=== PATIENT | female | born 1945 | race Caucasian/White ===

== ENCOUNTER → 2017-12-17 10:56 | Outpatient (CLI) | payer MEDICARE, SELFPAY ==
[2017-12-17 12:59] LABS: Absolute Lymphocyte Count 2.71 X10^3/ul (0.83-4.51); Basophil# 0.03 X10^3/uL; Basophil% 0.3 % (0-1); Eosinophil# 0.38 X10^3/uL; Eosinophils% 3.6 % (0-5); Hematocrit 42.7 % (37-47); Hemoglobin 14.3 g/dl (12.0-15.0); Lymphocyte # 2.71 X10^3/ul (4.0); Mean Corp Hgb Conc 33.5 g/gl (32-36); Mean Corpuscular Hgb 28.9 pg (27.0-32.0); Mean Corpuscular Volume 86.3 fL (81-99); Mean Platelet Vol. 10.1 fl (6.2-12.0); Monocyte# 1.32 X10^3/uL; Monocyte% 12.7 % (0-10); Neutrophil # 5.96 X10^3/uL (2.7-7.7); Neutrophil % 57.1 % (47-70); POSITIVE COUNT NO; POSITIVE DIFFERENTIAL NO; POSITIVE MORPHOLOGY NO; Platelet Count 227 K/mm3 (150-450); RBC Distribution Width CV 14.7 % (11.6-14.6); RBC Distribution Width SD 45.9 fl (35.1-43.9); Red Blood Count 4.95 M/mm3 (4.2-5.4); White Blood Count 10.4 K/mm3 (4.4-11.0)
[2017-12-17 13:12] LABS: Vitamin D,25 Hydroxy 34.7 ng/mL (19.95-100.01)
[2017-12-17 13:35] LABS: ALB/GLOB Ratio 0.2 RATIO (0.9-2.4); AST(SGOT) 19 U/L (15-37); Alanine Aminotransfer ALT/SGPT 25 U/L (13-56); Albumin, Serum 1.3 g/dL (3.2-5.0); Alkaline Phosphatase 75 U/L (45-117); Anion Gap 22 (5-15); BUN 11 mg/dL (7-18); BUN/Creat Ratio 17.7 RATIO (10-20); Calcium,Total 9.9 mg/dL (8.5-10.1); Chloride 109 mmol/L (98-107); Creatinine, Serum 0.62 mg/dL (0.55-1.02); EST Glomerular Filtration Rate 100 mL/min (>60); Est Glom Filt Rate - Afr Amer 121 mL/min (>60); Globulin 5.2 g/dL (2.2-4.2); Glucose 79 mg/dL (74-106); Potassium 4.3 mmol/L (3.5-5.1); Protein, Total 6.5 g/dL (6.4-8.2); Sodium Level 143 mmol/L (136-145); Thyroid Stim Hormone (TSH) 2.26 uIU/mL (0.358-3.74)
== END ==
PROVIDERS: Family Provider Family Medicine Geriatric Medicine; PCP Family Medicine Geriatric Medicine; Visit Provider Family Medicine Geriatric Medicine
DX: I10 Essential (primary) hypertension (principal); E55.9 Vitamin D deficiency, unspecified
CPT/HCPCS: 36415; 80053; 82306; 84443; 85025

== ENCOUNTER 2018-02-04 17:00 | Outpatient (RCR) | payer MEDICARE, SELFPAY ==
--- NOTE | 2018-01-28 14:56 | HP.PTEVAL_ITS ---
Patient's Visit Information ANDREY DIEHL is a 72 year old F referred to Physical Therapy by Beverly [email or web address] with a diagnosis of Low Back Pain. Date of Evaluation: 01/28/18 Physical Therapist: Nedra Sarabia - Visit Plan Frequency: 1x/Week Duration: 4 Weeks Plan: Focus on core s/s- HEP due to high copay - Subjective Subjective: Patient reports hip pain that radiates to the knee on the left side started about a week ago- insidious onset. Has poor muscle tone and thinks that the problems. Had nerve pain before sciatic but this is a new onset. Worst: /10 agg: movement Eases: 0/10 with pain medication. Had x-rays taken - reports indicate that has muscle issues. Describes pain as pinching. Feels the pain is getting better but she still has the pain. Saw the MD who put her on steroids (taper) and advil- finished the taper yesterday. No N/T in the toes. but does tingle in the top of the latearal aspect of the thigh. Has a cholostomy- so no change in bowl or bladder. Sleep: does wake her up sometimes - tries to take pain medication before she goes to bed. Can be stiff in the AM - side sleeper. Does not sleep with a pillow between her knees. About a year ago she fell off a ladder but doesn't know if its related- did not get checked out. PMHx: cholostomy, 3 surgeries on her gut so she feels like she has poor strength, BP. Meds: Tylenol, Advil, BP med, detrol - Objective Posture: FH, RS, Increased kyphosis- corrects briefly with verbal cues but returns to poor posture quickly. Gait: no deviation noted in LE but has poor trunk rotation. SLS: 15 sec without LOB bilaterally. HR/TR: able in standing without UE A. ROM: lumbar: WNL in all planes, Hip/Knee/Ankle:WNL. Strength: Core: poor, Hip: 4/5 throughout, Knee: 4+/5, Ankle: 5/5. Slump: positive left. Flex: HS: moderate, Gastroc: moderate. Sensation: WNL - Goals Goal 1:: Patient will be I with HEP and progression Goal Time Frame: 4-6 Weeks Goal 2:: Patient will maintain proper posture t/o tx session to demo increased Goal Time Frame: 4-6 Weeks Goal 3:: Patient reports 2/10 pain for 1 week Goal Time Frame: 4-6 Weeks - Rehabilitation Potential Physical Therapy Diagnosis: Patient presents with hypomobility- she has poor core strength/stabilization leading to poor posture and increased pain Rehabilitation Potential: Fair - Anticipated Interventions Patient/Client Instruction: Educate patient on: Benefits of Fitness Program For the Purpose of:: To improve ability to perform ADL's Therapeutic Exercise to Include: Strength training, Endurance training, Body mechanics, Postural training, Flexibilty training, Dynamic Lumbar Stabilization , Scapular Strength/Stabilization For the Purpose of:: To improve muscle performance and motor function TENS: Yes Thermo therapy (hot pack): Yes Ultrasound (thermal/non thermal): Yes For the Purpose of:: To decrease pain Thank you for the opportunity to evaluate your patient. For Medicare and Medicare HMO plans, please review the plan of care and approve it. It will need to be FAXED BACK to us at [phone] for Medicare purposes. Please let me know if there are questions or concerns regarding this plan of care. Physician Signature: Date:
--- NOTE | 2018-03-16 14:00 | HP.PTDCNRP_ITS ---
HP - Discharge Summary (1) - Patient Information ANDREY DIEHL was seen in my office for initial evaluation on 01/28/18. The following Plan of Care was established for this patient: Initial Frequency: 1x/Week Initial Duration: 4 Weeks - Anticipated Interventions Patient/Client Instruction: Educate patient on: Benefits of Fitness Program For the Purpose of:: To improve ability to perform ADL's Therapeutic Exercise to Include: Strength training, Endurance training, Body mechanics, Postural training, Flexibilty training, Dynamic Lumbar Stabilization , Scapular Strength/Stabilization For the Purpose of:: To improve muscle performance and motor function TENS: Yes Thermo therapy (hot pack): Yes Ultrasound (thermal/non thermal): Yes For the Purpose of:: To decrease pain This patient was last seen in our office . Pertinent comments regarding their Physical therapy will appear below: Patient has not returned for 30 days and is appropriate for discharge. Return to MD for further evaluation as needed. At this point I will be discontinuing this patient from physical therapy. I would be happy to see this patient again in the future if found appropriate by the physician. Thank you! Nedra Sarabia
== END 2018-02-04 19:00 | disposition home or self-care (01) ==
LOC: PT 17:00
PROVIDERS: Family Provider Family Medicine Geriatric Medicine; PCP Family Medicine Geriatric Medicine; Visit Provider Physician Assistant
DX: M43.16 Spondylolisthesis, lumbar region (principal); M54.16 Radiculopathy, lumbar region; M51.36 Other intervertebral disc degeneration, lumbar region
CPT/HCPCS: 97014; 97110; 97161; G0283

== ENCOUNTER → 2018-03-25 11:57 | Outpatient (CLI) | payer MEDICARE, SELFPAY ==
[2018-03-25 12:42] LABS: Absolute Lymphocyte Count 2.48 X10^3/ul (0.83-4.51); Absolute Neutrophil Count 4.2 X10^3/uL (2.0-7.7); Basophil# 0.05 X10^3/uL; Basophil% 0.6 % (0-1); Eosinophil# 0.83 X10^3/uL; Eosinophils% 9.8 % (0-5); Hematocrit 40.7 % (37-47); Hemoglobin 13.3 g/dl (12.0-15.0); Lymphocyte # 2.48 X10^3/ul (4.0); Lymphocyte % 29.3 % (19-41); Mean Corp Hgb Conc 32.7 g/gl (32-36); Mean Corpuscular Hgb 27.9 pg (27.0-32.0); Mean Corpuscular Volume 85.3 fL (81-99); Mean Platelet Vol. 9.6 fl (6.2-12.0); Monocyte# 0.95 X10^3/uL; Monocyte% 11.2 % (0-10); Neutrophil # 4.15 X10^3/uL (2.7-7.7); Platelet Count 251 K/mm3 (150-450); RBC Distribution Width CV 13.3 % (11.6-14.6); RBC Distribution Width SD 41.3 fl (35.1-43.9); Red Blood Count 4.77 M/mm3 (4.2-5.4); White Blood Count 8.5 K/mm3 (4.4-11.0)
[2018-03-25 12:54] LABS: POSITIVE COUNT NO; POSITIVE DIFFERENTIAL NO; POSITIVE MORPHOLOGY NO
[2018-03-25 13:16] LABS: Vitamin D,25 Hydroxy 29.9 ng/mL (29.95-100.01)
[2018-03-25 13:17] LABS: AST(SGOT) 29 U/L (15-37); Alanine Aminotransfer ALT/SGPT 27 U/L (13-56); Albumin, Serum 3.3 g/dL (3.2-5.0); Alkaline Phosphatase 86 U/L (45-117); Anion Gap 9 (5-15); BUN 10 mg/dL (7-18); Calcium,Total 9.9 mg/dL (8.5-10.1); Chloride 109 mmol/L (98-107); Creatinine, Serum 0.72 mg/dL (0.55-1.02); EST Glomerular Filtration Rate 85 mL/min (>60); Est Glom Filt Rate - Afr Amer 102 mL/min (>60); Globulin 3.4 g/dL (2.2-4.2); Glucose 107 mg/dL (74-106); Potassium 4.2 mmol/L (3.5-5.1); Protein, Total 6.7 g/dL (6.4-8.2); Sodium Level 143 mmol/L (136-145)
== END ==
PROVIDERS: Family Provider Family Medicine Geriatric Medicine; PCP Family Medicine Geriatric Medicine; Visit Provider Family Medicine Geriatric Medicine
DX: I10 Essential (primary) hypertension (principal); E55.9 Vitamin D deficiency, unspecified
CPT/HCPCS: 36415; 80053; 82306; 84443; 85025

== ENCOUNTER → 2018-04-09 12:08 | Outpatient (CLI) | payer MEDICARE, SELFPAY | PROVIDERS: Family Provider Family Medicine Geriatric Medicine; PCP Family Medicine Geriatric Medicine; Visit Provider Family Medicine Geriatric Medicine | DX: R68.83 Chills (without fever) (principal) | CPT/HCPCS: 87633 ==

== ENCOUNTER → 2018-05-07 14:08 | Outpatient (CLI) | payer MEDICARE, SELFPAY ==
--- NOTE | 2018-05-07 14:10 | RAD_ITS ---
STUDY: X-RAY - ABDOMEN/PELVIS REASON FOR EXAM: Female, 73 years old. Colostomy. Constipation. Discomfort. TECHNIQUE: AP supine and upright views of the abdomen and pelvis. COMPARISON: None. FINDINGS: Normal visualized lung bases. There is a large amount of feces throughout the colon. There is no evidence of obstruction. There is no small bowel dilatation. There is no demonstrated free abdominal air. The visualized liver, spleen and kidneys are grossly normal in size and morphology. There is a left lower quadrant ostomy. Normal soft tissue structures. There are diffuse degenerative changes of the visualized lumbar spine. RAD/Abd Inc Decub and/or Erect IMPRESSION: Large amount of feces suggesting constipation. There is no evidence of acute intra-abdominal process Electronically Signed: Jorge Thrasher DO at 22:21 EDT Tel [phone], Service support ,
== END ==
PROVIDERS: Family Provider Family Medicine Geriatric Medicine; PCP Family Medicine Geriatric Medicine; Visit Provider Family Medicine Geriatric Medicine
DX: K59.00 Constipation, unspecified (principal)
CPT/HCPCS: 74019

== ENCOUNTER → 2018-06-16 11:02 | Outpatient (CLI) | payer MEDICARE, SELFPAY ==
[2018-06-16 13:00] LABS: Absolute Lymphocyte Count 2.45 X10^3/ul (0.83-4.51); Absolute Neutrophil Count 4.3 X10^3/uL (2.0-7.7); Basophil# 0.04 X10^3/uL; Basophil% 0.5 % (0-1); Eosinophil# 0.27 X10^3/uL; Eosinophils% 3.3 % (0-5); Hemoglobin 13.5 g/dl (12.0-15.0); Lymphocyte # 2.45 X10^3/ul (4.0); Lymphocyte % 29.7 % (19-41); Mean Corp Hgb Conc 32.9 g/gl (32-36); Mean Corpuscular Hgb 28.6 pg (27.0-32.0); Mean Corpuscular Volume 86.9 fL (81-99); Mean Platelet Vol. 9.8 fl (6.2-12.0); Monocyte# 1.14 X10^3/uL; Monocyte% 13.8 % (0-10); Neutrophil # 4.33 X10^3/uL (2.7-7.7); Neutrophil % 52.5 % (47-70); Platelet Count 264 K/mm3 (150-450); RBC Distribution Width CV 14.5 % (11.6-14.6); RBC Distribution Width SD 45.7 fl (35.1-43.9); Red Blood Count 4.72 M/mm3 (4.2-5.4); White Blood Count 8.3 K/mm3 (4.4-11.0)
[2018-06-16 13:02] LABS: POSITIVE COUNT NO; POSITIVE DIFFERENTIAL NO; POSITIVE MORPHOLOGY NO
[2018-06-16 13:46] LABS: ALB/GLOB Ratio 1.1 RATIO (0.9-2.4); AST(SGOT) 22 U/L (15-37); Alanine Aminotransfer ALT/SGPT 18 U/L (13-56); Albumin, Serum 3.2 g/dL (3.2-5.0); Alkaline Phosphatase 63 U/L (45-117); Anion Gap 8 (5-15); BUN 10 mg/dL (7-18); BUN/Creat Ratio 13.3 RATIO (10-20); Calcium,Total 9.4 mg/dL (8.5-10.1); Chloride 110 mmol/L (98-107); Cholesterol 153 mg/dL (200); Creatinine, Serum 0.75 mg/dL (0.55-1.02); EST Glomerular Filtration Rate 80 mL/min (>60); Est Glom Filt Rate - Afr Amer 97 mL/min (>60); Glucose 69 mg/dL (74-106); High Density Lipoprotein 52 mg/dL; Potassium 3.8 mmol/L (3.5-5.1); Protein, Total 6.2 g/dL (6.4-8.2); Sodium Level 142 mmol/L (136-145); Thyroid Stim Hormone (TSH) 1.74 uIU/mL (0.358-3.74); Triglycerides 96 mg/dL; Very Low Density Lipoprotein 19 mg/dL (5-40)
[2018-06-17 09:04] LABS: Vitamin D,25 Hydroxy 31.8 ng/mL (29.95-100.01)
== END ==
PROVIDERS: Family Provider Family Medicine Geriatric Medicine; PCP Family Medicine Geriatric Medicine; Visit Provider Family Medicine Geriatric Medicine
DX: E78.4 Other hyperlipidemia (principal); E55.9 Vitamin D deficiency, unspecified; I10 Essential (primary) hypertension
CPT/HCPCS: 36415; 80053; 80061; 82306; 84443; 85025

== ENCOUNTER → 2018-09-09 13:56 | Outpatient (CLI) | payer MEDICARE, SELFPAY | PROVIDERS: Family Provider Family Medicine Geriatric Medicine; PCP Family Medicine Geriatric Medicine; Referring Provider Family Medicine Geriatric Medicine; Visit Provider Family Medicine Geriatric Medicine | DX: R68.83 Chills (without fever) (principal) | CPT/HCPCS: 87633 ==

== ENCOUNTER → 2018-09-23 15:35 | Outpatient (CLI) | payer MEDICARE, SELFPAY ==
[2018-09-23 17:38] LABS: Absolute Lymphocyte Count 2.02 X10^3/ul (0.83-4.51); Absolute Neutrophil Count 7.5 X10^3/uL (2.0-7.7); Basophil# 0.03 X10^3/uL; Basophil% 0.3 % (0-1); Differential Indicated SCAN CRITERIA MET; Eosinophil# 0.27 X10^3/uL; Eosinophils% 2.4 % (0-5); Hematocrit 43.2 % (37-47); Hemoglobin 14.2 g/dl (12.0-15.0); Lymphocyte # 2.02 X10^3/ul (4.0); Lymphocyte % 17.7 % (19-41); Mean Corp Hgb Conc 32.9 g/gl (32-36); Mean Corpuscular Volume 88.2 fL (81-99); Mean Platelet Vol. 10.1 fl (6.2-12.0); Monocyte# 1.54 X10^3/uL; Monocyte% 13.5 % (0-10); Neutrophil # 7.52 X10^3/uL (2.7-7.7); Neutrophil % 65.7 % (47-70); POSITIVE COUNT NO; POSITIVE DIFFERENTIAL YES; POSITIVE MORPHOLOGY NO; Platelet Count 297 K/mm3 (150-450); RBC Distribution Width CV 13.9 % (11.6-14.6); RBC Distribution Width SD 44.1 fl (35.1-43.9); White Blood Count 11.4 K/mm3 (4.4-11.0)
[2018-09-23 17:53] LABS: Differential Comment SCANNED; Vitamin D,25 Hydroxy 21.6 ng/mL (29.95-100.01)
[2018-09-23 18:02] LABS: AST(SGOT) 18 U/L (15-37); Alanine Aminotransfer ALT/SGPT 28 U/L (13-56); Albumin, Serum 3.3 g/dL (3.2-5.0); Alkaline Phosphatase 79 U/L (45-117); Anion Gap 8 (5-15); BUN 10 mg/dL (7-18); Chloride 110 mmol/L (98-107); Cholesterol 187 mg/dL (200); EST Glomerular Filtration Rate 58 mL/min (>60); Est Glom Filt Rate - Afr Amer 70 mL/min (>60); Globulin 3.4 g/dL (2.2-4.2); Glucose 154 mg/dL (74-106); High Density Lipoprotein 69 mg/dL; Protein, Total 6.7 g/dL (6.4-8.2); Sodium Level 144 mmol/L (136-145); Thyroid Stim Hormone (TSH) 2.32 uIU/mL (0.358-3.74); Triglycerides 92 mg/dL; Very Low Density Lipoprotein 18 mg/dL (5-40)
--- OUTSIDE RECORDS SUMMARY | 2018-11-19 01:52 | XMS RPT_ITS ---
:1945 Author Organization OHIP Support Name Relationship Address Phone Melvi Pollard Unavailable Unavailable + [place] [address] NAY DIEHL Unavailable [address] + [place] [address] R Unavailable Unavailable Unavailable Melvi Pollard Unavailable Unavailable + [place] [address] NAY DIEHL Unavailable [address] + [place] [address] R Unavailable Unavailable Unavailable Melvi Pollard Unavailable Unavailable + [place] [address] NAY DIEHL Unavailable [address] + [place] [address] R Unavailable Unavailable Unavailable Melvi Pollard Unavailable Unavailable + [place] [address] NAY DIEHL Unavailable [address] + [place] [address] R Unavailable Unavailable Unavailable Melvi Pollard Unavailable Unavailable + [place] [address] NAY DIEHL Unavailable [address] + [place] [address] R Unavailable Unavailable Unavailable NAY DIEHL Unavailable [address] + [place] [address] R Unavailable Unavailable Unavailable FAZALNAY Unavailable [address] + [place] [address] R Unavailable Unavailable Unavailable NAY DIEHL Unavailable [address] + [place] [address] R Unavailable Unavailable Unavailable Care Team Providers Name Role Phone Ana WRIGHT Attending Unavailable NAY IBARRA Referring Unavailable ADILSON GOMEZ Attending Unavailable GO, FLOR CHI Referring Unavailable Go, Flor Chi Attending Unavailable Go, Flor Chi Primary Care Unavailable Franklyn, Beverly Attending Unavailable Franklyn, Beverly Referring Unavailable Go, Flor Chi Primary Care Unavailable Go, Flor Chi Attending Unavailable Go, Flor Chi Primary Care Unavailable Go, Flor Chi Attending Unavailable Go, Flor Chi Referring Unavailable Go, Flor Chi Primary Care Unavailable Go, Flor Chi Attending Unavailable Go, Flor Chi Referring Unavailable Go, Flor Chi Primary Care Unavailable Go, Flor Chi Attending Unavailable Go, Flor Chi Primary Care Unavailable Go, Flor Chi Attending Unavailable Go, Flor Chi Referring Unavailable Go, Flor Chi Primary Care Unavailable Go, Flor Chi Attending Unavailable Go, Flor Chi Primary Care Unavailable PROBLEMS PROBLEMS DATE TYPE CONDITION / CODE ATTENDING STATUS SOURCE 04/09/2018 Unknown R68.83 - Chills Go, Flor Chi Active [place] (without fever) / [facility] R68.83(ICD-10) Hospital Repository 03/25/2018 Unknown I10 - Essential Go, Flor Chi Active [place] (primary) [facility] hypertension / Hospital I10(ICD-10) Repository 03/25/2018 Unknown E55.9 - Vitamin D Go, Flor Chi Active [place] deficiency, [facility] unspecified / Hospital E55.9(ICD-10) Repository 03/19/2018 Unknown M43.16 - FranklynXiomara mckinleye Active [place] Spondylolisthesis, [facility] lumbar region / Hospital M43.16(ICD-10) Repository 11/18/2017 Active Unknown / WRIGHT, R Active [facility] UNK(Unknown) [facility] Repository PROCEDURES PROCEDURES No Procedure Records FoundRESULTS RESULTS CBC W/DIFF, AUTOMATED Collected: 09/23/2018 Status: F Source: [place] 3:36 PM [facility] HOSPITAL REPOSITORY TYPE CODE TESTS RESULT OUT OF RANGE REFERENCE UNITS LAB L100.1000 4.4-11.0 K/mm3 High WBC 11.4 LAB L100.1200 4.2-5.4 M/mm3 Normal RBC 4.90 LAB L100.1300 12.0-15.0 g/dl Normal HGB 14.2 LAB L100.1400 37-47 % Normal HCT 43.2 LAB L100.1500 81-99 fL Normal MCV 88.2 LAB L100.1600 27.0-32.0 pg Normal MCH 29.0 LAB L100.1700 32-36 g/gl Normal MCHC 32.9 LAB L100.1810 11.6-14.6 % Normal RDW CV 13.9 LAB L100.1820 35.1-43.9 fl High RDW SD 44.1 LAB L100.1900 150-450 K/mm3 Normal PLT 297 LAB L100.2000 6.2-12.0 fl Normal MPV 10.1 LAB L100.2100 47-70 % Normal NEUT% 65.7 LAB L100.2200 19-41 % Low LY% 17.7 LAB L100.2300 0-10 % High MONO% 13.5 LAB L100.2400 0-5 % Normal EO% 2.4 LAB L100.2500 0-1 % Normal BASO% 0.3 LAB L100.2550 0.0-0.9 % Normal IM GRAN % 0.400 Result Comment: IG% - Immature Granulocytes (promyelocytes, myelocytes and metamyelocytes) > 1% indicates that a LEFT SHIFT is Present. LAB L100.2620 2.0-7.7 X10 3/uL Normal Absolute Neut 7.5 LAB L100.2720 0.83-4.51 X10 3/ul Normal Absolute Lymph 2.02 LAB L100.4500 Normal SMEAR COMMENT SCANNED Result Comment: MONOCYTOSIS NOTED Performed By: #### L100.0100 #### [facility] [address], [place], [address] VITAMIN D,25 HYDROXY Collected: 09/23/2018 Status: F Source: [place] 3:36 PM [facility] [place] TYPE CODE TESTS RESULT OUT OF REFERENCE UNITS RANGE LAB L506.1000 29.95-100.01 ng/mL Low Vitamin D 21.6 25-OH Result Comment: Vitamin D 25(OH) Status Range Deficiency <20 ng/mL (50nmol/L) Insuffciency 20 - 30 ng/mL (50 - 75 nmol/L) Sufficiency 30 - 100 ng/mL (75 - 250 nmol/L) Toxicity >100 ng/mL (>250 nmol/L) Performed By: #### L506.1000 #### [facility] [address], [place], [address] COMPREHENSIVE METABOLIC Collected: 09/23/2018 Status: F Source: [place] 3:36 PM [facility] [place] TYPE CODE TESTS RESULT OUT OF RANGE REFERENCE UNITS LAB L501.0100 74-106 mg/dL High GLU 154 Result Comment: Fasting Glucose result greater than or equal to 126 mg/dL suggests DIABETES MELLITUS per A.D.A. criteria. Please note revised GLUCOSE reference range effective 2017. LAB L501.1000 7-18 mg/dL Normal BUN 10 LAB L501.1100 0.55-1.02 mg/dL Normal CREAT,SERUM 1.00 Result Comment: The validity of the calculated GFR AND GFRAA in patients over 70 years has not been determined. Clinical correlation is essential. LAB L501.1110 >60 mL/min Low EST GFR 58 Result Comment: Non- GFR Calc LAB L501.1115 >60 mL/min Normal EST GFR - AA 70 Result Comment: GFR Calc LAB L501.1300 10-20 RATIO Normal BUN/CRE 10.0 LAB L501.1500 6.4-8.2 g/dL T Normal PROT 6.7 LAB L501.1800 3.2-5.0 g/dL Normal ALB 3.3 LAB L501.1950 2.2-4.2 g/dL Normal GLOB 3.4 LAB L501.2000 0.9-2.4 RATIO Normal A/G 1.0 LAB L501.2200 8.5-10.1 mg/dL CA Normal 10.0 LAB L501.4100 15-37 U/L Normal AST 18 LAB L501.4305 45-117 U/L Normal ALK P 79 LAB L501.4405 13-56 U/L Normal ALT 28 LAB L501.4600 0.20-1.00 mg/dL T Normal BILI 0.30 LAB L501.5300 136-145 mmol/L NA Normal 144 LAB L501.5600 3.5-5.1 mmol/L K Normal 4.0 LAB L501.5900 98-107 mmol/L High CL 110 LAB L501.6100 21.0-32.0 mmol/L Normal CO2 26.0 LAB L501.6200 5-15 Normal GAP 8 Performed By: #### L500.4050, L500.4100, L501.9520 #### [facility] [address] [place], [address] LIPID PROFILE Collected: 09/23/2018 Status: F Source: [place] 3:36 PM [facility] [place] TYPE CODE TESTS RESULT OUT OF RANGE REFERENCE UNITS LAB L501.4900 200 mg/dL Normal CHOL 187 Result Comment: <200 mg/dL Desirable 200-240 mg/dL Borderline >240 mg/dL High Risk LAB L501.5000 mg/dL Normal TRIG 92 Result Comment: The drugs N-Acetylcysteine and Metamizole may falsely depress this assay. Serum Triglycerides Reference Interval Normal <150 mg/dL Borderline high 150 - 199 mg/dL High 200 - 499 mg/dL Very High > or = 500 mg/dL LAB L501.6400 mg/dL Normal HDL 69 Result Comment: The drugs N-Acetylcysteine and Metamizole may falsely depress this assay. Reference Range HDL <40 mg/dL Low HDL Cholesterol HDL >or= 60 mg/dL High HDL Cholesterol LAB L501.6500 0-130 mg/dL Normal LDL 100 LAB L501.6600 5-40 mg/dL Normal VLDL 18 Performed By: #### L500.4050, L500.4100, L501.9520 #### [facility] [address] [place], [address] THYROID STIM HORMONE Collected: 09/23/2018 Status: F Source: [place] (TSH) 3:36 PM [facility] [place] TYPE CODE TESTS RESULT OUT OF RANGE REFERENCE UNITS LAB L501.9520 0.358-3.74 uIU/mL Normal TSH 2.32 Performed By: #### L500.4050, L500.4100, L501.9520 #### [facility] [address] [place], [address] Observed: 09/09/2018 Status: F Source: [place] RESPIRATORY PANEL 2:06 PM [facility] RP PANEL Normal Reference Range = Not Detected RESULTS CALLED TO DR STILES NURSE LINE 09/10/18 3660 Shala Carrillo. REPORT READ BACK BY NO ONE. Copy of report sent to Infection Control Printer MS#[id number] 09/10/18 0940 DGRADY. ADENOVIRUS Not Detected HUMAN METAPHNEUMO Not Detected INFLUENZA A Not Detected INFLUENZA A (SUBTYPE H1) Not Detected INFLUENZA A (SUBTYPE H3) Not Detected INFLUENZA B Not Detected PARAINFLUENZA 1 Not Detected PARAINFLUENZA 2 Not Detected PARAINFLUENZA 3 Not Detected PARAINFLUENZA 4 Not Detected RHINOVIRUS Positive for RHINOVIRUS by NAAT technology RSV A Not Detected RSV B Not Detected NAAT METHOD Testing was performed using nucleic acid amplification ORGANISM 1: RHINOVIRUS Performed By: #### M100.638 #### [facility] [address] [place], [address] CBC W/DIFF, AUTOMATED Collected: 06/16/2018 Status: F Source: [place] 11:04 AM [facility] [place] TYPE CODE TESTS RESULT OUT OF RANGE REFERENCE UNITS LAB L100.1000 4.4-11.0 K/mm3 Normal WBC 8.3 LAB L100.1200 4.2-5.4 M/mm3 Normal RBC 4.72 LAB L100.1300 12.0-15.0 g/dl Normal HGB 13.5 LAB L100.1400 37-47 % Normal HCT 41.0 LAB L100.1500 81-99 fL Normal MCV 86.9 LAB L100.1600 27.0-32.0 pg Normal MCH 28.6 LAB L100.1700 32-36 g/gl Normal MCHC 32.9 LAB L100.1810 11.6-14.6 % Normal RDW CV 14.5 LAB L100.1820 35.1-43.9 fl High RDW SD 45.7 LAB L100.1900 150-450 K/mm3 Normal PLT 264 LAB L100.2000 6.2-12.0 fl Normal MPV 9.8 LAB L100.2100 47-70 % Normal NEUT% 52.5 LAB L100.2200 19-41 % Normal LY% 29.7 LAB L100.2300 0-10 % High MONO% 13.8 LAB L100.2400 0-5 % Normal EO% 3.3 LAB L100.2500 0-1 % Normal BASO% 0.5 LAB L100.2550 0.0-0.9 % Normal IM GRAN % 0.200 Result Comment: IG% - Immature Granulocytes (promyelocytes, myelocytes and metamyelocytes) > 1% indicates that a LEFT SHIFT is Present. LAB L100.2620 2.0-7.7 X10 3/uL Normal Absolute Neut 4.3 LAB L100.2720 0.83-4.51 X10 3/ul Normal Absolute Lymph 2.45 Performed By: #### L100.0100 #### [facility] [place], [address] COMPREHENSIVE METABOLIC Collected: 06/16/2018 Status: F Source: [place] [facility] 11:04 AM [facility] [place] TYPE CODE TESTS RESULT OUT OF RANGE REFERENCE UNITS LAB L501.0100 74-106 mg/dL Low GLU 69 Result Comment: Please note revised GLUCOSE reference range effective 2017. LAB L501.1000 7-18 mg/dL Normal BUN 10 LAB L501.1100 0.55-1.02 mg/dL Normal CREAT,SERUM 0.75 Result Comment: The validity of the calculated GFR AND GFRAA in patients over 70 years has not been determined. Clinical correlation is essential. LAB L501.1110 >60 mL/min Normal EST GFR 80 Result Comment: Non- GFR Calc LAB L501.1115 >60 mL/min Normal EST GFR - AA 97 Result Comment: GFR Calc LAB L501.1300 10-20 RATIO Normal BUN/CRE 13.3 LAB L501.1500 6.4-8.2 g/dL Low T PROT 6.2 LAB L501.1800 3.2-5.0 g/dL Normal ALB 3.2 LAB L501.1950 2.2-4.2 g/dL Normal GLOB 3.0 LAB L501.2000 0.9-2.4 RATIO Normal A/G 1.1 LAB L501.2200 8.5-10.1 mg/dL CA Normal 9.4 LAB L501.4100 15-37 U/L Normal AST 22 LAB L501.4305 45-117 U/L Normal ALK P 63 LAB L501.4405 13-56 U/L Normal ALT 18 LAB L501.4600 0.20-1.00 mg/dL T Normal BILI 0.50 LAB L501.5300 136-145 mmol/L NA Normal 142 LAB L501.5600 3.5-5.1 mmol/L K Normal 3.8 LAB L501.5900 98-107 mmol/L High CL 110 LAB L501.6100 21.0-32.0 mmol/L Normal CO2 24.0 LAB L501.6200 5-15 Normal GAP 8 Performed By: #### L500.4050, L500.4100, L501.9520 #### [facility] [address] [place], [place], [address] LIPID PROFILE Collected: 06/16/2018 Status: F Source: [place] 11:04 AM [facility] [place] TYPE CODE TESTS RESULT OUT OF RANGE REFERENCE UNITS LAB L501.4900 200 mg/dL Normal CHOL 153 Result Comment: <200 mg/dL Desirable 200-240 mg/dL Borderline >240 mg/dL High Risk LAB L501.5000 mg/dL Normal TRIG 96 Result Comment: The drugs N-Acetylcysteine and Metamizole may falsely depress this assay. Serum Triglycerides Reference Interval Normal <150 mg/dL Borderline high 150 - 199 mg/dL High 200 - 499 mg/dL Very High > or = 500 mg/dL LAB L501.6400 mg/dL Normal HDL 52 Result Comment: The drugs N-Acetylcysteine and Metamizole may falsely depress this assay. Reference Range HDL <40 mg/dL Low HDL Cholesterol HDL >or= 60 mg/dL High HDL Cholesterol LAB L501.6500 0-130 mg/dL Normal LDL 82 LAB L501.6600 5-40 mg/dL Normal VLDL 19 Performed By: #### L500.4050, L500.4100, L501.9520 #### [facility] [address] [facility] [place], [address] THYROID STIM HORMONE Collected: 06/16/2018 Status: F Source: [place] (TSH) 11:04 AM [facility] [place] TYPE CODE TESTS RESULT OUT OF RANGE REFERENCE UNITS LAB L501.9520 0.358-3.74 uIU/mL Normal TSH 1.74 Performed By: #### L500.4050, L500.4100, L501.9520 #### [facility] [address] [facility] [place], [place], [address] VITAMIN D,25 HYDROXY Collected: 06/16/2018 Status: F Source: [place] 11:04 AM [facility] [place] TYPE CODE TESTS RESULT OUT OF RANGE REFERENCE UNITS LAB L506.1000 29.95-100.01 ng/mL Normal Vitamin D 31.8 25-OH Result Comment: Vitamin D 25(OH) Status Range Deficiency <20 ng/mL (50nmol/L) Insuffciency 20 - 30 ng/mL (50 - 75 nmol/L) Sufficiency 30 - 100 ng/mL (75 - 250 nmol/L) Toxicity >100 ng/mL (>250 nmol/L) Performed By: #### L506.1000 #### [facility] [address] [place], [address] ABD INC DECUB Observed: 05/07/2018 Status: F Source: [place] AND/OR ERECT 2:10 PM [facility] [facility] Services [address] [address] Abd Inc Decub and/or Erect MR#: [id number] Acct: [id number] Name: BREANNE DIEHL Rep #: [id number] : 1945 F 73 From: Jorge Thrasher DO PCP: Go HASKINS,Flor Alcantara Status: REG CLI Study: Abd Inc Decub and/or Erect Date of Exam: 05/07/18 Exam# [id number] Ordering Dr: Flor Stiles MD STUDY: X-RAY - ABDOMEN/PELVIS REASON FOR EXAM: Female, 73 years old. Colostomy. Constipation. Discomfort. TECHNIQUE: AP supine and upright views of the abdomen and pelvis. COMPARISON: None. FINDINGS: Normal visualized lung bases. There is a large amount of feces throughout the colon. There is no evidence of obstruction. There is no small bowel dilatation. There is no demonstrated free abdominal air. The visualized liver, spleen and kidneys are grossly normal in size and morphology. There is a left lower quadrant ostomy. Normal soft tissue structures. There are diffuse degenerative changes of the visualized lumbar spine. RAD/Abd Inc Decub and/or Erect IMPRESSION: Large amount of feces suggesting constipation. There is no evidence of acute intra-abdominal process Electronically Signed: Jorge Thrasher at 22:21 EDT Tel [phone], Service support , CC: Flor Stiles MD Case Repairer: Signed Observed: 04/09/2018 Status: F Source: [place] RESPIRATORY PANEL 12:13 PM [facility] RP PANEL ADENOVIRUS Not Detected HUMAN METAPHNEUMO Not Detected INFLUENZA A Not Detected INFLUENZA A (SUBTYPE H1) Not Detected INFLUENZA A (SUBTYPE H3) Not Detected INFLUENZA B Not Detected PARAINFLUENZA 1 Not Detected PARAINFLUENZA 2 Not Detected PARAINFLUENZA 3 Not Detected PARAINFLUENZA 4 Not Detected RHINOVIRUS Not Detected RSV A Not Detected RSV B Not Detected NAAT METHOD Testing was performed using nucleic acid amplification Performed By: #### M100.638 #### [facility] [place], [address] CBC W/DIFF, AUTOMATED Collected: 03/25/2018 Status: F Source: [place] 11:59 AM [facility] TYPE CODE TESTS RESULT OUT OF RANGE REFERENCE UNITS LAB L100.1000 4.4-11.0 K/mm3 Normal WBC 8.5 LAB L100.1200 4.2-5.4 M/mm3 Normal RBC 4.77 LAB L100.1300 12.0-15.0 g/dl Normal HGB 13.3 LAB L100.1400 37-47 % Normal HCT 40.7 LAB L100.1500 81-99 fL Normal MCV 85.3 LAB L100.1600 27.0-32.0 pg Normal MCH 27.9 LAB L100.1700 32-36 g/gl Normal MCHC 32.7 LAB L100.1810 11.6-14.6 % Normal RDW CV 13.3 LAB L100.1820 35.1-43.9 fl Normal RDW SD 41.3 LAB L100.1900 150-450 K/mm3 Normal PLT 251 LAB L100.2000 6.2-12.0 fl Normal MPV 9.6 LAB L100.2100 47-70 % Normal NEUT% 49.0 LAB L100.2200 19-41 % Normal LY% 29.3 LAB L100.2300 0-10 % High MONO% 11.2 LAB L100.2400 0-5 % High EO% 9.8 LAB L100.2500 0-1 % Normal BASO% 0.6 LAB L100.2550 0.0-0.9 % Normal IM GRAN % 0.100 Result Comment: IG% - Immature Granulocytes (promyelocytes, myelocytes and metamyelocytes) > 1% indicates that a LEFT SHIFT is Present. LAB L100.2620 2.0-7.7 X10 3/uL Normal Absolute Neut 4.2 LAB L100.2720 0.83-4.51 X10 3/ul Normal Absolute Lymph 2.48 Performed By: #### L100.0100 #### [facility] [address] [facility] [place], [place], [address] VITAMIN D,25 HYDROXY Collected: 03/25/2018 Status: F Source: [place] 11:59 AM [facility] [place] TYPE CODE TESTS RESULT OUT OF REFERENCE UNITS RANGE LAB L506.1000 29.95-100.01 ng/mL Low Vitamin D 29.9 25-OH Result Comment: Vitamin D 25(OH) Status Range Deficiency <20 ng/mL (50nmol/L) Insuffciency 20 - 30 ng/mL (50 - 75 nmol/L) Sufficiency 30 - 100 ng/mL (75 - 250 nmol/L) Toxicity >100 ng/mL (>250 nmol/L) Performed By: #### L506.1000 #### [facility] [address] [facility] [place], [place], [address] COMPREHENSIVE METABOLIC Collected: 03/25/2018 Status: F Source: [facility] 11:59 AM [facility] [place] TYPE CODE TESTS RESULT OUT OF RANGE REFERENCE UNITS LAB L501.0100 74-106 mg/dL High GLU 107 Result Comment: Fasting Glucose result from 100 to 125 mg/dL suggests IMPAIRED HOMEOSTASIS per A.D.A. criteria. Please note revised GLUCOSE reference range effective 2017. LAB L501.1000 7-18 mg/dL Normal BUN 10 LAB L501.1100 0.55-1.02 mg/dL Normal CREAT,SERUM 0.72 Result Comment: The validity of the calculated GFR AND GFRAA in patients over 70 years has not been determined. Clinical correlation is essential. LAB L501.1110 >60 mL/min Normal EST GFR 85 Result Comment: Non- GFR Calc LAB L501.1115 >60 mL/min Normal EST GFR - AA 102 Result Comment: GFR Calc LAB L501.1300 10-20 RATIO Normal BUN/CRE 14.0 LAB L501.1500 6.4-8.2 g/dL T Normal PROT 6.7 LAB L501.1800 3.2-5.0 g/dL Normal ALB 3.3 LAB L501.1950 2.2-4.2 g/dL Normal GLOB 3.4 LAB L501.2000 0.9-2.4 RATIO Normal A/G 1.0 LAB L501.2200 8.5-10.1 mg/dL CA Normal 9.9 LAB L501.4100 15-37 U/L Normal AST 29 LAB L501.4305 45-117 U/L Normal ALK P 86 LAB L501.4405 13-56 U/L Normal ALT 27 LAB L501.4600 0.20-1.00 mg/dL T Normal BILI 0.50 LAB L501.5300 136-145 mmol/L NA Normal 143 LAB L501.5600 3.5-5.1 mmol/L K Normal 4.2 LAB L501.5900 98-107 mmol/L High CL 109 LAB L501.6100 21.0-32.0 mmol/L Normal CO2 25.0 LAB L501.6200 5-15 Normal GAP 9 Performed By: #### L500.4050, L501.9520 #### [facility] [address] [facility] [place], [place], [address] THYROID STIM HORMONE Collected: 03/25/2018 Status: F Source: [place] (TSH) 11:59 AM [facility] [place] TYPE CODE TESTS RESULT OUT OF RANGE REFERENCE UNITS LAB L501.9520 0.358-3.74 uIU/mL Normal TSH 2.00 Performed By: #### L500.4050, L501.9520 #### [facility] [address] [facility] [place], [address] INITAL EVALUATION (1) Observed: 01/28/2018 Status: F Source: [place] - PT 2:56 PM [facility] [place] [facility] [address] [place] [address] Fax REHABILITATION SERVICES INITIAL EVALUATION MR#: [id number] Acct: [id number] Name: BREANNE DIEHL Rep #: [id number] : 1945 72 From: Nedra Sarabia DPT Referring Dr.: Beverly Estes Status: REG RCR Insurance: [employer] MEDICARE PPO SELF PAY INSURANCE Patient's Visit Information BREANNE DIEHL is a 72 year old F referred to Physical Therapy by Beverly [email or web address].BPOMPE with a diagnosis of Low Back Pain. Date of Evaluation: 01/28/18 Physical Therapist: Nedra Sarabia - Visit Plan Frequency: 1x/Week Duration: 4 Weeks Plan: Focus on core s/s- HEP due to high copay - Subjective Subjective: Patient reports hip pain that radiates to the knee on the left side started about a week ago- insidious onset. Has poor muscle tone and thinks that the problems. Had nerve pain before sciatic but this is a new onset. Worst: 9/10 agg: movement Eases: 0/10 with pain medication. Had x-rays taken- reports indicate that has muscle issues. Describes pain as pinching. Feels the pain is getting better but she still has the pain. Saw the MD who put her on steroids (taper) and advil- finished the taper yesterday. No N/T in the toes. but does tingle in the top of the latearal aspect of the thigh. Has a cholostomy- so no change in bowl or bladder. Sleep: does wake her up sometimes- tries to take pain medication before she goes to bed. Can be stiff in the AM- side sleeper. Does not sleep with a pillow between her knees. About a year ago she fell off a ladder but doesn't know if its related- did not get checked out. PMHx: cholostomy, 3 surgeries on her gut so she feels like she has poor strength, BP. Meds: Tylenol, Advil, BP med, detrol - Objective Posture: FH, RS, Increased kyphosis- corrects briefly with verbal cues but returns to poor posture quickly. Gait: no deviation noted in LE but has poor trunk rotation. SLS: 15 sec without LOB bilaterally. HR/TR: able in standing without UE A. ROM: lumbar: WNL in all planes, Hip/Knee/Ankle:WNL. Strength: Core: poor, Hip: 4/5 throughout, Knee: 4+/5, Ankle: 5/5. Slump: positive left. Flex: HS: moderate, Gastroc: moderate. Sensation: WNL - Goals Goal 1:: Patient will be I with HEP and progression Goal Time Frame: 4-6 Weeks Goal 2:: Patient will maintain proper posture t/o tx session to demo increased Goal Time Frame: 4-6 Weeks Goal 3:: Patient reports 2/10 pain for 1 week Goal Time Frame: 4-6 Weeks - Rehabilitation Potential Physical Therapy Diagnosis: Patient presents with hypomobility- she has poor core strength/stabilization leading to poor posture and increased pain Rehabilitation Potential: Fair - Anticipated Interventions Patient/Client Instruction: Educate patient on: Benefits of Fitness Program For the Purpose of:: To improve ability to perform ADL's Therapeutic Exercise to Include: Strength training, Endurance training, Body mechanics, Postural training, Flexibilty training, Dynamic Lumbar Stabilization, Scapular Strength/Stabilization For the Purpose of:: To improve muscle performance and motor function TENS: Yes Thermo therapy (hot pack): Yes Ultrasound (thermal/non thermal): Yes For the Purpose of:: To decrease pain Thank you for the opportunity to evaluate your patient. For Medicare and Medicare HMO plans, please review the plan of care and approve it. It will need to be FAXED BACK to us at [phone] for Medicare purposes. Please let me know if there are questions or concerns regarding this plan of care. Physician Signature: Date: <Electronically signed by Nedra Sarabia DPT> 01/28/18 7950 CC: Beverly Estes; Flor Stiles MD ELR Signed For Medicare only, by signing this I certify the plan of care. Physicians Signature Date SURGICAL PATHOLOGY Observed: 12/22/2017 Status: F Source: [place] 1:58 PM [facility] REPOSITORY Specimen originated from [facility] Specimen #: [id number] Submitting Physician: SHELBY ROWE FINAL DIAGNOSIS Pouch, biopsy - Gastric oxyntic mucosa with no diagnostic alteration. - No histomorphologic evidence of Helicobacter pylori. EDK/dss 12/23/2017 Justine Flores D.O. (Electronic Signature) SPECIMEN SUBMITTED A: POUCH, BIOPSY CLINICAL DATA GERD R/O H PYLORI GROSS DESCRIPTION A. Received in formalin are two pieces of buckner, soft tissue aggregating to 1.1 x 0.4 x 0.2 cm. Totally submitted in one cassette. Gross examination performed at [facility], [address] [place] [address] 12/22/2017 8:39:12 PM Date of Report: 12/25/2017 Date of Procedure: 12/22/2017 Date of Receipt: 12/22/2017 Submitted by: SHELBY ROWE Location: Q31 Diagnostic interpretation performed at [place] [address]. CBC W/DIFF, AUTOMATED Collected: 12/17/2017 Status: F Source: [place] 10:59 AM [facility] [place] [place] TYPE CODE TESTS RESULT OUT OF RANGE REFERENCE UNITS LAB L100.1000 4.4-11.0 K/mm3 Normal WBC 10.4 LAB L100.1200 4.2-5.4 M/mm3 Normal RBC 4.95 LAB L100.1300 12.0-15.0 g/dl Normal HGB 14.3 LAB L100.1400 37-47 % Normal HCT 42.7 LAB L100.1500 81-99 fL Normal MCV 86.3 LAB L100.1600 27.0-32.0 pg Normal MCH 28.9 LAB L100.1700 32-36 g/gl Normal MCHC 33.5 LAB L100.1810 11.6-14.6 % High RDW CV 14.7 LAB L100.1820 35.1-43.9 fl High RDW SD 45.9 LAB L100.1900 150-450 K/mm3 Normal PLT 227 LAB L100.2000 6.2-12.0 fl Normal MPV 10.1 LAB L100.2100 47-70 % Normal NEUT% 57.1 LAB L100.2200 19-41 % Normal LY% 26.0 LAB L100.2300 0-10 % High MONO% 12.7 LAB L100.2400 0-5 % Normal EO% 3.6 LAB L100.2500 0-1 % Normal BASO% 0.3 LAB L100.2550 0.0-0.9 % Normal IM GRAN % 0.300 Result Comment: IG% - Immature Granulocytes (promyelocytes, myelocytes and metamyelocytes) > 1% indicates that a LEFT SHIFT is Present. LAB L100.2620 2.0-7.7 X10 3/uL Normal Absolute Neut 6.0 LAB L100.2720 0.83-4.51 X10 3/ul Normal Absolute Lymph 2.71 Performed By: #### L100.0100 #### [facility] [place], [address] VITAMIN D,25 HYDROXY Collected: 12/17/2017 Status: F Source: [place] 10[place] [facility] [place] CODE TESTS RESULT OUT OF RANGE REFERENCE UNITS LAB L506.1000 19.95-100.01 ng/mL Normal Vitamin D 34.7 25-OH Result Comment: Vitamin D 25(OH) Status Range Deficiency <20 ng/mL (50nmol/L) Insuffciency 20 - 30 ng/mL (50 - 75 nmol/L) Sufficiency 30 - 100 ng/mL (75 - 250 nmol/L) Toxicity >100 ng/mL (>250 nmol/L) Performed By: #### L506.1000 #### [facility] [address] [place], [address] COMPREHENSIVE METABOLIC Collected: 12/17/2017 Status: F Source: [place] [facility] 10:59 AM [facility] [place] CODE TESTS RESULT OUT OF RANGE REFERENCE UNITS LAB L501.0100 74-106 mg/dL Normal GLU 79 Result Comment: Please note revised GLUCOSE reference range effective 2017. LAB L501.1000 7-18 mg/dL Normal BUN 11 LAB L501.1100 0.55-1.02 mg/dL Normal CREAT,SERUM 0.62 Result Comment: The validity of the calculated GFR AND GFRAA in patients over 70 years has not been determined. Clinical correlation is essential. LAB L501.1110 >60 mL/min Normal EST GFR 100 Result Comment: Non- GFR Calc LAB L501.1115 >60 mL/min Normal EST GFR - AA 121 Result Comment: GFR Calc LAB L501.1300 10-20 RATIO Normal BUN/CRE 17.7 LAB L501.1500 6.4-8.2 g/dL T Normal PROT 6.5 LAB L501.1800 3.2-5.0 g/dL Low ALB 1.3 LAB L501.1950 2.2-4.2 g/dL High GLOB 5.2 LAB L501.2000 0.9-2.4 RATIO Low A/G 0.2 LAB L501.2200 8.5-10.1 mg/dL CA Normal 9.9 LAB L501.4100 15-37 U/L Normal AST 19 LAB L501.4305 45-117 U/L Normal ALK P 75 LAB L501.4405 13-56 U/L Normal ALT 25 Result Comment: Please note revised ALT reference range effective 2017. LAB L501.4600 0.20-1.00 mg/dL Normal T BILI 0.60 LAB L501.5300 136-145 mmol/L Normal NA 143 LAB L501.5600 3.5-5.1 mmol/L Normal K 4.3 LAB L501.5900 98-107 mmol/L High CL 109 LAB L501.6100 21.0-32.0 mmol/L Low CO2 12.0 LAB L501.6200 5-15 High GAP 22 Performed By: #### L500.4050, L501.9520 #### [facility] [address] [place], [address] THYROID STIM HORMONE Collected: 12/17/2017 Status: F Source: [place] ([facility]) 10:59 AM [facility] [place] CODE TESTS RESULT OUT OF RANGE REFERENCE UNITS LAB L501.9520 0.358-3.74 uIU/mL Normal TSH 2.26 Performed By: #### L500.4050, L501.9520 #### [facility] [address] [place], [address] PROGRESS Observed: 11/18/2017 Status: COMPLETED Source: [place] 10:[address] [facility] REPOSITORY HNO ID: [id number] Author: Ana Wright Service: (none) Author Type: Physician Type: Progress Notes Filed: 11/18/2017 2:23 PM Note Text: [facility] STAFF PHYSICIAN NOTE OF PERSONAL INVOLVEMENT IN CARE I have reviewed the consult note obtained and documented by the resident and I personally participated in the avalos components. I have discussed the case and management of the patient's care. The following comments revise or confirm relevant avalos components of the note. IMPRESSION: This is a 72 year old with constant right sided abdominal pain. gallstones, but not convincing for biliary colic. complex past surgical history per resident note. diverticulitis, obesity, end-stoma PLAN: refer to bariatric endoscopy Tremayne Wright MD, FACS Date of Service: November 18, 2017 Time of Service: 10:23 AM HISTORY PHYSICAL Observed: 11/18/2017 Status: COMPLETED Source: [place] 9:[address] [facility] REPOSITORY HNO ID: [id number] Author: Carrie Camp Service: (none) Author Type: Resident Type: HANDP Filed: 11/18/2017 2:23 PM Note Text: HISTORY AND PHYSICAL EXAMINATION SERVICE DATE: 11/18/2017 SERVICE TIME: 9:31 AM PRIMARY CARE PHYSICIAN: Flor Stiles MD REASON FOR VISIT: Breanne Diehl is a 72 year old female who is being seen for abdominal pain The patient has the following: ACTIVE PROBLEM LIST Essential Hypertension, Benign Other and Unspecified Hyperlipidemia Adjustment Disorder With Depressed Mood Bronchiectasis With Acute Exacerbation (Hcc) Thoracic Or Lumbosacral Neuritis Or Radiculitis, Unspecified Lung Nodule Severe Persistent Asthma Bronchiectasis (Hcc) Allergic Rhinitis, Cause Unspecified Gerd (Gastroesophageal Reflux Disease) Dysphonia Overactive Bladder Chronic Cough Fracture of Radial Head, Closed Allergic Conjunctivitis Allergic Rhinitis Due to Pollen Excessive Daytime Sleepiness Asthma With Chronic Obstructive Pulmonary Disease (Copd) (Hcc) Obesity Nstemi (Non-St Elevated Myocardial Infarction) (Hcc) Atrial Fibrillation (Hcc) Asthma Exacerbation Acute Postoperative Pain of Abdomen Acute Blood Loss Anemia Heart Failure With Reduced Ejection Fraction (Hcc) Postoperative Ileus (Hcc) 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 Moderate Protein-Calorie Malnutrition (Hcc) Warfarin-Induced Coagulopathy (Hcc) Paroxysmal Atrial Fibrillation (Hcc) Stress-Induced Cardiomyopathy Anticoagulation Management Encounter Perioperative Dehiscence of Abdominal Wound With Evisceration Pseudomonas Infection Status Post Skin Graft SUBJECTIVE CHIEF COMPLAINT: Abdominal tightness and discomfort HPI: Breanne Diehl is a 72-year-old woman with a history of adjustment disorder, HTN, IBS, GERD and hiatal hernia s/p laparoscopic repair and Mayra-en-Y gastric bypass, diverticulitis with perforation s/p sigmoid colectomy with end colostomy complicated by early postoperative SBO secondary to parastomal hernia s/p keyhole repair complicated by evisceration s/p mesh placement and skin graft. She says that since that time she had suffered from abdominal pain. It is described as a tightness and discomfort and is located primarily deep to her right ribs. Sometimes she is also very bloated along her entire lower abdomen. The pain is constant, present daily and waxes and wanes throughout the day. It is usually about a 4/10 at its most severe is 5/10. The pain is exacerbated by eating anything and not fatty foods in particular, and she cannot eat much before feeling full. If she eats too much she feels sick but has not had any nausea or vomiting. The pain sometimes radiates to her right back when she is active. The only alleviating factor is rest and relaxation. She denies fevers with the acute exacerbations of lower abdominal bloating. She does not have weight loss, malaise, change in stoma output or character, urinary complaints, recent illness. She does continue to suffer from asthma but it is now controlled with inhalers alone and is not on steroids. She was advised to stop taking aspirin 81 due to easy bruising and is not on any other blood thinners. PAST MEDICAL HISTORY Diagnosis Date - Adjustment disorder with depressed mood - Asthma - Essential hypertension, benign - External hemorrhoids without mention of complication - GERD (gastroesophageal reflux disease) - Internal hemorrhoids without mention of complication - Irritable bowel syndrome - Overactive bladder PAST SURGICAL HISTORY Procedure Laterality Date - CATARACT EXTRACTION HX Bilateral 2011 - COLONOSCOP W/ OR W/O [facility] SPEC 11/26/06 - EGD 11/10 [facility] - NASAL SURGERY PROCEDURE 02/24/2012 Bilateral total ethmoidectomy, bilateral maxillary antrostomy , right middle turbinectomy, septoplasty (Behzad Sharma MD, [facility]) - PAST SURGICAL HISTORY OF 2001 bilateral knee replacement redo - PAST SURGICAL HISTORY OF 03/06/2010 complex revision to right total knee replacement -[facility] - Dr. Mcdonald - PICC LINE INSERT/CONSULT 07/01/2016 - REMOVAL OF TONSILS,<11 Y/O 1950 Tonsillectomy - SPLIT GRFT PROC TRUNK <100SQCM 12/25/2016 - W PROBE PH CAPSULE DOWNEY W/DEL 10/2014 [place] FAMILY HISTORY Problem Relation Age of Onset - Cancer Father prostate with mets at 91 y/o - Heart Mother - Breast Cancer Sister breast- mastectomy at 92 y/o - Cancer Sister lymphoma at 76 y/o - Ischemic Heart Disease Mother 88 at 88 y/o - Cancer Brother Urinary tract at 91 y/o - Diabetes Brother - None Sister s/p hip replacements - Prostate Cancer Father SOCIAL HISTORY: Social History Substance Use Topics - Smoking status: Former Smoker Packs/day: 0.30 Years: 4.00 Types: Cigarettes Quit date: 10/27/1965 - Smokeless tobacco: Never Used Comment: Few cigarettes daily, < 4 years. TO - Alcohol use No MEDICATIONS: Prior to Admission medications as of 11/18/17 0908 Medication Sig Last Dose Taking pantoprazole DR (PROTONIX) 40 mg tablet Yes tolterodine ER (DETROL LA) 2 mg 24 hr capsule Yes traZODone (DESYREL) 50 mg tablet Yes simethicone, chewable (MYLICON) 80 mg chewable tablet Take 1 tablet by mouth four times daily as needed. Yes albuterol (PROVENTIL) 2.5 mg /3 mL (0.083 %) nebulizer solution 3 mL every 4 hours as needed. Use one ampule via nebulizer every 4 hours as needed for cough, wheezing, chest tightness or SOB Yes albuterol HFA (PROVENTIL HFA) 90 mcg/actuation inhaler Inhale 2 Puffs as instructed every 4 hours as needed for Wheezing/Shortness of Breath. 2 PUFFS EVERY 4 HOURS NEEDED; MAY GIVE AVAILABLE EQUIVALENT ALBUTEROL HFA INHALER Yes ipratropium-albuterol (DUONEB) 0.5 mg-3 mg(2.5 mg base)/3 mL nebu Inhale 3 mL as instructed every 4 hours while awake. Yes budesonide-formoterol (SYMBICORT) 160-4.5 mcg/actuation inhaler Inhale 2 Puffs as instructed twice daily. Use with spacer. Rinse mouth out after use. Yes metoprolol tartrate, short acting, (LOPRESSOR) 25 mg tablet Take 1 tablet by mouth every 12 hours. Yes calcium citrate (CALCITRATE) 200 mg (950 mg) tab Take 1 tablet by mouth twice daily. Yes topical moisturizing lotion (LUBRIDERM DAILY) Apply 1 application to affected area as needed for Dry Skin. Yes budesonide (PULMICORT) 0.5 mg/2 mL nebulizer solution Use 2 mL via nebulizer twice daily. Yes heparin 5,000 unit/0.5 mL syrg Inject 0.5 mL subcutaneously every 12 hours. Yes docusate sodium (COLACE) 100 mg capsule Take 1 capsule by mouth twice daily. Yes benzocaine-menthol (CEPACOL) 15-3.6 mg lozg Use 1 Lozenge as instructed every 2 hours as needed. Yes Ggmujkvq-Cgrz-Ovl-Folic Acid (CENTRUM) 3,500-18-0.4 unit-mg-mg chewable tablet Take 1 tablet by mouth once daily. Yes cyanocobalamin (VITAMIN B-12) 1,000 mcg tab Take 1 tablet by mouth once daily. Yes cholecalciferol (VITAMIN D3) 1,000 unit tab tablet Take 2 tablets by mouth once daily. Yes oxybutynin ER (DITROPAN XL) 10 mg 24 hr tablet Take 1 tablet by mouth once daily. Yes No medication comments found. CURRENT ALLERGIES: ALLERGIES Allergen Reactions - Levaquin [Levofloxa* Hives, Swelling, Itching Swelling of face and lips. - Penicillins Hives, Intolerance - Dilaudid [Hydromorp* Hives - Oxycodone Mental Status Change Has been tolerating oxycodone during surgical recovery REVIEW OF SYSTEMS: PAIN ASSESSMENT: General: No weight loss, malaise or fevers. Neuro: Denies dizziness, loss of consciousness, stroke, TIA Respiratory: No history of current cough or dyspnea, or pneumonia in the past 6 weeks. No history of respiratory/pulmonary symptoms or problems Cardiovascular: Positive for: postoperative atrial fibrillation that resolved. Denies CAD, HTN, VT, palpitations GI: See HPI : Denies painful urination, bloody urine Endocrine: Denies diabetes and thyroid disease. No longer taking steroids for asthma. Hematology: Easy bruising / bleeding, denies bleeding disorder. Not on aspirin or blood thinners Oncology: No history of CA metastasis, chemo within 30 days, or radiotherapy within 90 days. Has not lost 10% of body wt in 6 months. No history of oncological symptoms or problems. Psych: Adjustment disorder Musculoskeletal: Occasional right back pain while sweeping. Negative for joint pain or swelling, or muscle pain. Skin: Negative for lesions, rash and itching. PHYSICAL EXAM: VITALS: BP 156/86 Pulse 66 Resp 20 Ht 5' 0 (1.52m) Wt 138 lb (62.6kg) BMI 26.95 kg/(m2). General: Alert and oriented Skin: Normal color, no rash, no lesions. HEENT: Extraocular movements intact Cardiovascular: Normal S1 AND S2, no rubs, murmurs or gallops. Pulse regular. Lungs: Slightly dyspneic when speaking. Normal breath sounds, no wheezes or crackles. Abdomen: Obese, soft, nontender to deep palpation. Well-healed surgical incisions including middle abdominal skin graft, left end colostomy pink and healthy with bilious stool in bag. Extremities: No deformity, no edema or tenderness, no joint swelling or clubbing. Neurological: Normal cognition and motor skills. Pulses: Regular Diagnostic tests reviewed for today's visit: Most recent imaging ASSESSMENT 72-year-old woman with complicated surgical history presenting with chronic abdominal pain. Her chronic, nagging pain exacerbated with eating is not typical of biliary colic. In the setting of her history of mayra-en-Y gastric bypass, we feel this warrants endoscopic evaluation of the pouch. - No plan for cholecystectomy at this time - EGD with Dr. Gomez - Follow up with Dr. Wright as needed SIGNATURE: Carrie Camp MD PATIENT NAME: Breanne Diehl DATE: November 18, 2017 TIME: 9:31 AM PAGER/CONTACT #: [id number] CNOV Observed: 11/18/2017 Status: COMPLETED Source: [place] 9:[address] [facility] REPOSITORY Office Visit (MAGDI) BREANNE DIEHL ([id number]) 1945 F Date Time Provider Department 11/18/17 9:00 AM Ana WRIGHT During your visit today, we recorded the following information about you: Pulse Respiration Blood pressure Weight 66/minute 20/minute 156/86 62.6 kg Height 1.524 m Bolivar Lewis Ms 11/18/2017 2:23 PM Signed MEDICAL STUDENT NOTE This note was generated by a MEDICAL STUDENT working under the supervision of an Attending Physician and is not authenticated until addended and cosigned by the Attending Physician at the beginning of this note. This note was opened in error. Bolivar Persaud MA, MA 11/18/2017 9:09 AM Signed What is the reason for your visit today? consult Who is your referring physician? Dr ibarra Are you having poor oral intake? NO Have you had unintentional weight loss of 15 lbs/7 Kg in the last 3-6 months? NO Bowels: regular Wound: clean ANDamp; dry Temperature: No Drains: No Carrie Camp MD 11/18/2017 2:23 PM Signed HISTORY AND PHYSICAL EXAMINATION SERVICE DATE: 11/18/2017 SERVICE TIME: 9:31 AM PRIMARY CARE PHYSICIAN: Flor Stiles MD REASON FOR VISIT: Breanne Diehl is a 72 year old female who is being seen for abdominal pain The patient has the following: ACTIVE PROBLEM LIST Essential Hypertension, Benign Other and Unspecified Hyperlipidemia Adjustment Disorder With Depressed Mood Bronchiectasis With Acute Exacerbation (Hcc) Thoracic Or Lumbosacral Neuritis Or Radiculitis, Unspecified Lung Nodule Severe Persistent Asthma Bronchiectasis (Hcc) Allergic Rhinitis, Cause Unspecified Gerd (Gastroesophageal Reflux Disease) Dysphonia Overactive Bladder Chronic Cough Fracture of Radial Head, Closed Allergic Conjunctivitis Allergic Rhinitis Due to Pollen Excessive Daytime Sleepiness Asthma With Chronic Obstructive Pulmonary Disease (Copd) (Hcc) Obesity Nstemi (Non-St Elevated Myocardial Infarction) (Hcc) Atrial Fibrillation (Hcc) Asthma Exacerbation Acute Postoperative Pain of Abdomen Acute Blood Loss Anemia Heart Failure With Reduced Ejection Fraction (Hcc) Postoperative Ileus (Hcc) 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 Moderate Protein-Calorie Malnutrition (Hcc) Warfarin-Induced Coagulopathy (Hcc) Paroxysmal Atrial Fibrillation (Hcc) Stress-Induced Cardiomyopathy Anticoagulation Management Encounter Perioperative Dehiscence of Abdominal Wound With Evisceration Pseudomonas Infection Status Post Skin Graft SUBJECTIVE CHIEF COMPLAINT: Abdominal tightness and discomfort HPI: Breanne Diehl is a 72-year-old woman with a history of adjustment disorder, HTN, IBS, GERD and hiatal hernia s/p laparoscopic repair and Mayra-en-Y gastric bypass, diverticulitis with perforation s/p sigmoid colectomy with end colostomy complicated by early postoperative SBO secondary to parastomal hernia s/p keyhole repair complicated by evisceration s/p mesh placement and skin graft. She says that since that time she had suffered from abdominal pain. It is described as a ANDquot;tightnessANDquot; and ANDquot;discomfortANDquot; and is located primarily deep to her right ribs. Sometimes she is also very bloated along her entire lower abdomen. The pain is constant, present daily and waxes and wanes throughout the day. It is usually about a 4/10 at its most severe is 5/10. The pain is exacerbated by eating anything and not fatty foods in particular, and she cannot eat much before feeling full. If she eats too much she feels sick but has not had any nausea or vomiting. The pain sometimes radiates to her right back when she is active. The only alleviating factor is rest and relaxation. She denies fevers with the acute exacerbations of lower abdominal bloating. She does not have weight loss, malaise, change in stoma output or character, urinary complaints, recent illness. She does continue to suffer from asthma but it is now controlled with inhalers alone and is not on steroids. She was advised to stop taking aspirin 81 due to easy bruising and is not on any other blood thinners. PAST MEDICAL HISTORY Diagnosis Date - Adjustment disorder with depressed mood - Asthma - Essential hypertension, benign - External hemorrhoids without mention of complication - GERD (gastroesophageal reflux disease) - Internal hemorrhoids without mention of complication - Irritable bowel syndrome - Overactive bladder PAST SURGICAL HISTORY Procedure Laterality Date - CATARACT EXTRACTION HX Bilateral 2011 - COLONOSCOP W/ OR W/O [facility] SPEC 11/26/06 - EGD 11/10 [facility] - NASAL SURGERY PROCEDURE 02/24/2012 Bilateral total ethmoidectomy, bilateral maxillary antrostomy , right middle turbinectomy, septoplasty (Behzad Sharma MD, [facility]) - PAST SURGICAL HISTORY OF 2001 bilateral knee replacement redo - PAST SURGICAL HISTORY OF 03/06/2010 complex revision to right total knee replacement -[facility] - Dr. Mcdonald - PICC LINE INSERT/CONSULT 07/01/2016 - REMOVAL OF TONSILS,ANDlt;11 Y/O 1950 Tonsillectomy - SPLIT GRFT PROC TRUNK ANDlt;100SQCM 12/25/2016 - W PROBE PH CAPSULE DOWNEY W/DEL 10/2014 [facility] FAMILY HISTORY Problem Relation Age of Onset - Cancer Father prostate with mets at 91 y/o - Heart Mother - Breast Cancer Sister breast- mastectomy at 92 y/o - Cancer Sister lymphoma at 76 y/o - Ischemic Heart Disease Mother 88 at 88 y/o - Cancer Brother Urinary tract at 91 y/o - Diabetes Brother - None Sister s/p hip replacements - Prostate Cancer Father SOCIAL HISTORY: Social History Substance Use Topics - Smoking status: Former Smoker Packs/day: 0.30 Years: 4.00 Types: Cigarettes Quit date: 10/27/1965 - Smokeless tobacco: Never Used Comment: Few cigarettes daily, ANDlt; 4 years. TO - Alcohol use No MEDICATIONS: Prior to Admission medications as of 11/18/17 0908 Medication Sig Last Dose Taking pantoprazole DR (PROTONIX) 40 mg tablet Yes tolterodine ER (DETROL LA) 2 mg 24 hr capsule Yes traZODone (DESYREL) 50 mg tablet Yes simethicone, chewable (MYLICON) 80 mg chewable tablet Take 1 tablet by mouth four times daily as needed. Yes albuterol (PROVENTIL) 2.5 mg /3 mL (0.083 %) nebulizer solution 3 mL every 4 hours as needed. Use one ampule via nebulizer every 4 hours as needed for cough, wheezing, chest tightness or SOB Yes albuterol HFA (PROVENTIL HFA) 90 mcg/actuation inhaler Inhale 2 Puffs as instructed every 4 hours as needed for Wheezing/Shortness of Breath. 2 PUFFS EVERY 4 HOURS NEEDED; MAY GIVE AVAILABLE EQUIVALENT ALBUTEROL HFA INHALER Yes ipratropium-albuterol (DUONEB) 0.5 mg-3 mg(2.5 mg base)/3 mL nebu Inhale 3 mL as instructed every 4 hours while awake. Yes budesonide-formoterol (SYMBICORT) 160-4.5 mcg/actuation inhaler Inhale 2 Puffs as instructed twice daily. Use with spacer. Rinse mouth out after use. Yes metoprolol tartrate, short acting, (LOPRESSOR) 25 mg tablet Take 1 tablet by mouth every 12 hours. Yes calcium citrate (CALCITRATE) 200 mg (950 mg) tab Take 1 tablet by mouth twice daily. Yes topical moisturizing lotion (LUBRIDERM DAILY) Apply 1 application to affected area as needed for Dry Skin. Yes budesonide (PULMICORT) 0.5 mg/2 mL nebulizer solution Use 2 mL via nebulizer twice daily. Yes heparin 5,000 unit/0.5 mL syrg Inject 0.5 mL subcutaneously every 12 hours. Yes docusate sodium (COLACE) 100 mg capsule Take 1 capsule by mouth twice daily. Yes benzocaine-menthol (CEPACOL) 15-3.6 mg lozg Use 1 Lozenge as instructed every 2 hours as needed. Yes Kdheufdv-Csnz-Tdw-Folic Acid (CENTRUM) 3,500-18-0.4 unit-mg-mg chewable tablet Take 1 tablet by mouth once daily. Yes cyanocobalamin (VITAMIN B-12) 1,000 mcg tab Take 1 tablet by mouth once daily. Yes cholecalciferol (VITAMIN D3) 1,000 unit tab tablet Take 2 tablets by mouth once daily. Yes oxybutynin ER (DITROPAN XL) 10 mg 24 hr tablet Take 1 tablet by mouth once daily. Yes No medication comments found. CURRENT ALLERGIES: ALLERGIES Allergen Reactions - Levaquin [Levofloxa* Hives, Swelling, Itching Swelling of face and lips. - Penicillins Hives, Intolerance - Dilaudid [Hydromorp* Hives - Oxycodone Mental Status Change Has been tolerating oxycodone during surgical recovery REVIEW OF SYSTEMS: PAIN ASSESSMENT: General: No weight loss, malaise or fevers. Neuro: Denies dizziness, loss of consciousness, stroke, TIA Respiratory: No history of current cough or dyspnea, or pneumonia in the past 6 weeks. No history of respiratory/pulmonary symptoms or problems Cardiovascular: Positive for: postoperative atrial fibrillation that resolved. Denies CAD, HTN, VT, palpitations GI: See HPI : Denies painful urination, bloody urine Endocrine: Denies diabetes and thyroid disease. No longer taking steroids for asthma. Hematology: Easy bruising / bleeding, denies bleeding disorder. Not on aspirin or blood thinners Oncology: No history of CA metastasis, chemo within 30 days, or radiotherapy within 90 days. Has not lost 10% of body wt in 6 months. No history of oncological symptoms or problems. Psych: Adjustment disorder Musculoskeletal: Occasional right back pain while sweeping. Negative for joint pain or swelling, or muscle pain. Skin: Negative for lesions, rash and itching. PHYSICAL EXAM: VITALS: BP 156/86 Pulse 66 Resp 20 Ht 5' 0ANDquot; (1.52m) Wt 138 lb (62.6kg) BMI 26.95 kg/(m2). General: Alert and oriented Skin: Normal color, no rash, no lesions. HEENT: Extraocular movements intact Cardiovascular: Normal S1 ANDamp; S2, no rubs, murmurs or gallops. Pulse regular. Lungs: Slightly dyspneic when speaking. Normal breath sounds, no wheezes or crackles. Abdomen: Obese, soft, nontender to deep palpation. Well-healed surgical incisions including middle abdominal skin graft, left end colostomy pink and healthy with bilious stool in bag. Extremities: No deformity, no edema or tenderness, no joint swelling or clubbing. Neurological: Normal cognition and motor skills. Pulses: Regular Diagnostic tests reviewed for today's visit: Most recent imaging ASSESSMENT 72-year-old woman with complicated surgical history presenting with chronic abdominal pain. Her chronic, nagging pain exacerbated with eating is not typical of biliary colic. In the setting of her history of mayra-en-Y gastric bypass, we feel this warrants endoscopic evaluation of the pouch. - No plan for cholecystectomy at this time - EGD with Dr. Gomez - Follow up with Dr. Wright as needed SIGNATURE: Carrie Camp MD PATIENT NAME: Breanne Diehl DATE: November 18, 2017 TIME: 9:31 AM PAGER/CONTACT #: [id number] Tremayne Wright MD, FACS 11/18/2017 2:23 PM Signed [facility] STAFF PHYSICIAN NOTE OF PERSONAL INVOLVEMENT IN CARE I have reviewed the consult note obtained and documented by the resident and I personally participated in the avalos components. I have discussed the case and management of the patient's care. The following comments revise or confirm relevant avalos components of the note. IMPRESSION: This is a 72 year old with constant right sided abdominal pain. gallstones, but not convincing for biliary colic. complex past surgical history per resident note. diverticulitis, obesity, end-stoma PLAN: refer to bariatric endoscopy Tremayne Wright MD, FACS Date of Service: November 18, 2017 Time of Service: 10:23 AM Referring Provider: NAY IBARRA [[id number]] Allergies As of Date: 11/18/2017 Noted Allergy Reaction LEVAQUIN (LEVOFLOXACIN) 05/28/2011 4 - Hives 7 - Swelling 9 - Itching Comments: Swelling of face and lips. PENICILLINS 08/13/2005 4 - Hives 5 - Intolerance DILAUDID (HYDROMORPHONE (PF)) 06/28/2016 4 - Hives OXYCODONE 05/31/2016 1 - Mental Status Change Comments: Has been tolerating oxycodone during surgical recovery Date Reviewed: 11/18/2017 Reviewed by: Beltran Herrera) MADAI Persaud - Fully Assessed Reason for Visit: Consult [173] Primary Visit Diagnosis:Right upper quadrant abdominal pain [R10.11] Order(s):EGD [[id number]] Order #: [id number] FUTURE Prescriptions as of 11/18/2017 Sig: PANTOPRAZOLE 40 MG TABLET,DEL* TOLTERODINE ER 2 MG CAPSULE,E* TRAZODONE 50 MG TABLET SIMETHICONE 80 MG CHEWABLE TA* Take 1 tablet by mouth four t* ALBUTEROL SULFATE 2.5 MG/3 ML* 3 mL every 4 hours as needed.* ALBUTEROL SULFATE HFA 90 MCG/* Inhale 2 Puffs as instructed * IPRATROPIUM-ALBUTEROL 0.5 MG-* Inhale 3 mL as instructed xavi* BUDESONIDE-FORMOTEROL HFA 160* Inhale 2 Puffs as instructed * METOPROLOL TARTRATE 25 MG TAB* Take 1 tablet by mouth every * CALCIUM CITRATE 200 MG (950 M* Take 1 tablet by mouth twice * EMOLLIENT COMBINATION NO.92 T* Apply 1 application to affect* BUDESONIDE 0.5 MG/2 ML SUSPEN* Use 2 mL via nebulizer twice * HEPARIN, PORCINE (PF) 5,000 U* Inject 0.5 mL subcutaneously * DOCUSATE SODIUM 100 MG CAPSULE Take 1 capsule by mouth twice* BENZOCAINE-MENTHOL 15 MG-3.6 * Use 1 Lozenge as instructed e* OUYAWIOO-QUID-XTX-FOLIC ACID * Take 1 tablet by mouth once d* CYANOCOBALAMIN (VIT B-12) 1,0* Take 1 tablet by mouth once d* CHOLECALCIFEROL (VITAMIN D3) * Take 2 tablets by mouth once * OXYBUTYNIN CHLORIDE ER 10 MG * Take 1 tablet by mouth once d* Problem List As Of Date 11/18/2017 Noted Resolved BENIGN HYPERTENSION [I10] More... Other and unspecified hyperlipidemia [E78.5] More... ADJUSTMENT DISORDER WITH DEPRESSED MOOD [F43.21] Dysuria [R30.0] INVALID FOR*11/29/2013 BRONCHIECTASIS W ACUTE EXACERBATION [J47.1] INVALID FOR* LUMBOSACRAL NEURITIS NOS [TUI6670] INVALID FOR* Lung nodule [R91.1] INVALID FOR* More... Shortness of breath [R06.02] INVALID FOR*12/22/2015 Asthma [J45.909] INVALID FOR*11/29/2013 Severe persistent asthma [J45.50] INVALID FOR* Bronchiectasis [J47.9] INVALID FOR* Allergic rhinitis, cause unspecified [J30.9] INVALID FOR* GERD (gastroesophageal reflux disease) [K21.9] INVALID FOR* Dysphonia [R49.0] INVALID FOR* Overactive bladder [N32.81] INVALID FOR* Chronic cough [R05] INVALID FOR* Fracture of radial head, closed [S52.123A] INVALID FOR* Allergic conjunctivitis [H10.10] INVALID FOR* Allergic rhinitis due to pollen [J30.1] INVALID FOR* Excessive daytime sleepiness [G47.19] INVALID FOR* Asthma with chronic obstructive pulmonary disea*INVALID FOR* Obesity [E66.9] INVALID FOR* NSTEMI (non-ST elevated myocardial infarction) *INVALID FOR* Atrial fibrillation (HCC) [I48.91] INVALID FOR* Asthma exacerbation [J45.901] INVALID FOR* Acute postoperative pain of abdomen [G89.18, R1*INVALID FOR* Acute blood loss anemia [D62] INVALID FOR* Heart failure with reduced ejection fraction (H*INVALID FOR* Postoperative ileus (HCC) [K91.89, K56.7] INVALID FOR* Parastomal hernia with obstruction and without *INVALID FOR* Moderate protein-calorie malnutrition (HCC) [E4*INVALID FOR* Warfarin-induced coagulopathy (HCC) [D68.9, T45*INVALID FOR* Paroxysmal atrial fibrillation (HCC) [I48.0] INVALID FOR* 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 consult Who is your referring physician? Dr ibarra Are you having poor oral intake? NO Have you had unintentional weight loss of 15 lbs/7 Kg in the last 3-6 months? NO Bowels: regular Wound: clean AND dry Temperature: No Drains: No Medications Discontinued During This Encounter 0.9% NaCl 0 08/02/2016 11/18/2017 Class: Med Update Route: INTRAVENOUS Sig: Inject 10 mL intravenously every 12 hours. Disc: Reason for discontinue is not on file. TRANSDERM-SCOP 1.5 mg (1 mg over 3 d* 09/05/2016 11/18/2017 Class: Historical Med Sig: Disc: Reason for discontinue is not on file. aspirin 81 mg chewable tablet 0 08/02/2016 11/18/2017 Class: Med Update Route: ORAL Sig: Take 1 tablet by mouth once daily. Disc: Reason for discontinue is not on file. acetaminophen (TYLENOL) 325 mg tablet 08/02/2016 11/18/2017 Class: Med Update Route: ORAL Sig: Take 2 tablets by mouth every 6 hours as needed. Disc: Reason for discontinue is not on file. fentaNYL (SUBLIMAZE) 50 mcg/mL soln 0 08/02/2016 11/18/2017 Class: Med Update Route: INTRAVENOUS Sig: Inject 1 mL intravenously every 2 hours as needed (Administered with dressing changes.). Disc: Reason for discontinue is not on file. lisinopril (ZESTRIL, PRINIVIL) 5 mg * 0 08/02/2016 11/18/2017 Class: Med Update Cmt: HOLD for SBP<110 Route: ORAL Sig: Take 1 tablet by mouth once daily. Disc: Reason for discontinue is not on file. losartan (COZAAR) 50 mg tablet 90 t* 3 08/02/2016 11/18/2017 Class: Med Update Cmt: HOLD for SBP<110 Route: ORAL Sig: Take 1 tablet by mouth once daily. Disc: Reason for discontinue is not on file. magnesium hydroxide (MOM) 400 mg/5 m* 0 08/02/2016 11/18/2017 Class: Med Update Route: ORAL Sig: Take 45 mL by mouth twice daily. Disc: Reason for discontinue is not on file. metoclopramide HCl (REGLAN) 10 mg ta* 09/05/2016 11/18/2017 Class: Historical Med Sig: Disc: Reason for discontinue is not on file. montelukast (SINGULAIR) 10 mg tablet 06/27/2016 11/18/2017 Class: Historical Med Sig: Disc: Reason for discontinue is not on file. ondansetron (ZOFRAN) 8 mg tablet 09/05/2016 11/18/2017 Class: Historical Med Sig: Disc: Reason for discontinue is not on file. polyethylene glycol 3350 (MIRALAX, G* 09/05/2016 11/18/2017 Class: Historical Med Sig: Disc: Reason for discontinue is not on file. megestrol (MEGACE) 400 mg/10 mL (40 * 09/05/2016 11/18/2017 Class: Historical Med Sig: Disc: Reason for discontinue is not on file. FERREX 150 150 mg iron capsule 09/05/2016 11/18/2017 Class: Historical Med Sig: Disc: Reason for discontinue is not on file. KLOR-CON M20 20 mEq tablet 09/05/2016 11/18/2017 Class: Historical Med Sig: Disc: Reason for discontinue is not on file. mineral oil liquid 0 08/02/2016 11/18/2017 Class: Med Update Route: ORAL Sig: Take 30 mL by mouth once daily. Disc: Reason for discontinue is not on file. ondansetron orally disintegrating (Z* 30 t* 0 05/31/2016 11/18/2017 Class: Print RX Route: ORAL Sig: Take 1 tablet by mouth four times daily as needed. Disc: Reason for discontinue is not on file. Encounter Status:Closed by Ana WRIGHT MD, FACS on 11/18/17 PROGRESS Observed: 11/18/2017 Status: COMPLETED Source: [place] 8:[address] [facility] REPOSITORY HNO ID: [id number] Author: Bolivar Lewis Ms Service: (none) Author Type: (none) Type: Progress Notes Filed: 11/18/2017 2:23 PM Note Text: MEDICAL STUDENT NOTE This note was generated by a MEDICAL STUDENT working under the supervision of an Attending Physician and is not authenticated until addended and cosigned by the Attending Physician at the beginning of this note. This note was opened in error. Bolivar Lewis Ms CNCO Observed: 11/18/2017 Status: COMPLETED Source: [place] 12:[address] [facility] REPOSITORY HNO ID: [id number] Author: Ana Wright Service: General Surgery Author Type: Physician Type: Letter Filed: 12/13/2017 9:12 AM Note Text: November 18, 2017 Nay Ibarra M.D. [facility] [address] [place] [address] NAME: Breanne Diehl [facility] NO: [id number] DATE OF SERVICE: 11/18/[address] Ibarra: I have had the pleasure of seeing your patient, Mrs. Diehl, in consultation. As you recall, she is a complex woman who has undergone a gastric bypass and subsequently developed perforated diverticulitis for which she had an open abdomen, and end colostomy, mesh and skin graft. This all occurred in the fall of 2015. Since that operation, she has had constant right-sided abdominal pain that waxes and wanes. Her only association is with the amount of food that she takes by mouth, which seems to exacerbate her symptoms. Although she has gallstones on ultrasound, her symptoms do not seem to be biliary in origin. I have not advised cholecystectomy, but have advised an endoscopy by the Bariatric Team. This will be arranged with Dr. Gomez, who has previously participated in her surgical care. Sincerely, Tremayne Wright M.D., F.A.C.S. MW/089 Audio #: [id number] ALLERGIES ALLERGIES DATE TYPE / CODE NAME / CODE REACTION SEVERITY SOURCE 10/13/2017 Drug Penicillins/U638239 Hives Unknown [place] Allergy/416 476(RXNORM) [facility] 266786([facility]) Repository 10/13/2017 Drug hydromorphone/F0060 Unknown Unknown [place] Allergy/416 72054(RXNORM) [facility] 436835([facility]) Repository 10/13/2017 Drug levofloxacin/O23831 Hives Unknown [place] Allergy/416 6299(RXNORM) [facility] 652329[facility] ED [facility]) Repository 06/28/2016 DRUG/336865 HYDROMORPHONE (PF) HIVES [facility] 003(SNOMED [facility] [place] [facility]) Repository 05/31/2016 DRUG OXYCODONE Mental Chg [facility] INGREDI/419 [place] 060920(SNOM Repository ED CT) 05/28/2011 DRUG LEVOFLOXACIN HIVES High [facility] INGREDI/419 [facility] [place] 611508(SNOM Repository ED CT) 08/13/2005 Drug PENICILLINS HIVES Med [facility] Class/05625 [facility] [place] 1003(SNOMED Repository CT) ENCOUNTERS ENCOUNTERS ADMIT/DISCHARGE ACCOUNT ADMITTING ENCOUNTER LOCATION SOURCE NUMBER CLASS 09/23/2018 [id number] [facility] ing:POLAB3 Repository 09/09/2018 [id number] [facility] ing:PSN Repository 06/16/2018 [id number] Ambulatory [facility] ing:POLAB3 Repository 05/07/2018 [id number] Ambulatory [facility] ing:RAD Repository 04/09/2018 [id number] [facility]ulatory [facility] Hospital ing:PSN Repository 03/25/2018 [id number] [facility] Hospital ing:POLAB3 Repository 02/04/2018/02/05/20 [id number] Ambulatory [address] ing:PT Repository 12/22/2017 [id number] Ambulatory [facility] Repository 12/17/2017 [id number] [facility] Hospital ing:POLAB3 Repository 11/18/2017/11/25/[id number] Repository PAYERS PAYERS ENCOUNTER GUARANTOR PAYER SUBSCRIBER SOURCE 09/23/2018 BREANNE [id number] S Insurance:NATHANIEL REAVESB: Community [place] [employer] [id number] Number[place] Repository [address]Eaj: [phone]) [id number] [phone] () Date:8448-34-53ZA [address] [address]LP: 09/23/2018 Secondary NOT GIVENUNK [place] Insurance:SELF PAY [facility] Hospital Number: Effective Repository Date:2018-09-23 09/09/2018 BREANNE L Primary BREANNE L [place] [id number] S Insurance:HUMANA FLICKINGERDOB: Community [place] [employer] PP[place]olicy [id number] Number: Repository [address]Fnd: 330 [id number] [phone] (HP) Date:8848-99-53SJ [address] [address]VR: 09/09/2018 Secondary NOT GIVENUNK [place] Insurance:SELF PAY [facility] Number: Effective Repository Date:2018-09-09 06/16/2018 BREANNE L Primary BREANNE L [place] [id number] S Insurance:HUMANA FLICKINGERDOB: Community [place] [employer] PPOPolicy [id number] [place] Number: Repository [address]Ior: 330 [id number] [phone] () Date:0108-68-93TK [address] [address]TR: 06/16/2018 Secondary NOT GIVENUNK [place] Insurance:SELF PAY [facility] Number: Effective Repository Date:2018-06-16 05/07/2018 BREANNE L Primary BREANNE L [place] [id number] S Insurance:HUMANA FLICKINGERDOB: Community [place] [employer] PPOPolicy [id number] [place] Number: Repository [address]Dbc: [phone] [id number] (HP) Date:8392-28-86BH [address] [address]LY: 05/07/2018 Secondary NOT GIVENUNK [place] Insurance:SELF PAY [facility] Hospital Number: Effective Repository Date:2018-05-07 04/09/2018 BREANNE L Primary BREANNE L [place] [id number] S Insurance:HUMANA FLICKINGERDOB: Community [place] [employer] PPOPolicy [id number] [facility] [place] Number: Repository [address]Nma: [id number] [phone] Date:4406-74-31RZ [address] (HP) [address] [place] [address]CX: 04/09/2018 Secondary NOT GIVENUNK [place] Insurance:SELF PAY [facility] Hospital Number: Effective Repository Date:2018-04-09 03/25/2018 BREANNE L Primary BREANNE L [place] [id number] S Insurance:HUMANA FLICKINGERDOB: Community [place] [employer] [facility] [id number] [facility] [place] Number: Repository [address]Zka: [id number] [phone] Date:4232-11-53CN [address] () [address] [place] [address]ON: 03/25/2018 Secondary NOT GIVENUNK [place] Insurance:SELF PAY [facility] Hospital Number: Effective Repository Date:2018-03-25 02/04/2018 BREANNE L Primary BREANNE L [place] [id number] S Insurance:HUMANA FLICKINGERDOB: Community [place] [employer] [facility] [id number] Number: Repository [id number]: [id number] [phone] Date:8645-31-47ZS [address] (HP) [address] [place] [address]EW: 02/04/2018 Secondary NOT GIVENUNK [place] Insurance:SELF PAY [facility] Hospital Number: Effective Repository Date:2018-01-22 12/17/2017 BREANNE L Primary BREANNE L [place] [id number] S Insurance:HUMANA FLICKINGERDOB: Community [employer] [employer] OPolicy [id number] Springs [facility]al [facility] [place] Number: Repository [address]Sqt: [id number] [phone] Date:1499-11-86XC [address] -[address] (HP) [address] [place] [address] [place] [address]KA: 12/17/2017 Secondary NOT GIVENUNK [place] Insurance:SELF PAY [facility] Number: Effective Repository Date:2017-12-17
== END ==
PROVIDERS: Family Provider Family Medicine Geriatric Medicine; PCP Family Medicine Geriatric Medicine; Visit Provider Family Medicine Geriatric Medicine
DX: E55.9 Vitamin D deficiency, unspecified (principal); I10 Essential (primary) hypertension; E78.49 Other hyperlipidemia
CPT/HCPCS: 36415; 80053; 80061; 82306; 84443; 85025

== ENCOUNTER → 2018-12-22 15:24 | Outpatient (CLI) | payer MEDICARE, SELFPAY ==
[2018-12-22 16:38] LABS: Absolute Lymphocyte Count 2.76 X10^3/ul (0.83-4.51); Absolute Neutrophil Count 5.2 X10^3/uL (2.0-7.7); Basophil# 0.05 X10^3/uL; Basophil% 0.5 % (0-1); Eosinophil# 0.43 X10^3/uL; Eosinophils% 4.5 % (0-5); Hematocrit 41.9 % (37-47); Hemoglobin 13.7 g/dl (12.0-15.0); Lymphocyte # 2.76 X10^3/ul (4.0); Lymphocyte % 28.8 % (19-41); Mean Corp Hgb Conc 32.7 g/gl (32-36); Mean Corpuscular Hgb 28.4 pg (27.0-32.0); Mean Corpuscular Volume 86.9 fL (81-99); Mean Platelet Vol. 9.7 fl (6.2-12.0); Monocyte# 1.13 X10^3/uL; Monocyte% 11.8 % (0-10); Neutrophil # 5.18 X10^3/uL (2.7-7.7); Neutrophil % 54.2 % (47-70); Platelet Count 301 K/mm3 (150-450); RBC Distribution Width CV 13.3 % (11.6-14.6); RBC Distribution Width SD 40.9 fl (35.1-43.9); Red Blood Count 4.82 M/mm3 (4.2-5.4); White Blood Count 9.6 K/mm3 (4.4-11.0)
[2018-12-22 16:42] LABS: POSITIVE COUNT NO; POSITIVE DIFFERENTIAL NO; POSITIVE MORPHOLOGY NO
[2018-12-22 17:09] LABS: Vitamin D,25 Hydroxy 27.1 ng/mL (29.95-100.01)
[2018-12-22 17:11] LABS: ALB/GLOB Ratio 0.9 RATIO (0.9-2.4); AST(SGOT) 23 U/L (15-37); Alanine Aminotransfer ALT/SGPT 24 U/L (13-56); Albumin, Serum 3.3 g/dL (3.2-5.0); Alkaline Phosphatase 85 U/L (45-117); Anion Gap 7 (5-15); BUN 10 mg/dL (7-18); BUN/Creat Ratio 14.5 RATIO (10-20); Calcium,Total 9.3 mg/dL (8.5-10.1); Chloride 109 mmol/L (98-107); Cholesterol 136 mg/dL (200); Creatinine, Serum 0.69 mg/dL (0.55-1.02); EST Glomerular Filtration Rate 88 mL/min (>60); Est Glom Filt Rate - Afr Amer 107 mL/min (>60); Globulin 3.5 g/dL (2.2-4.2); Glucose 86 mg/dL (74-106); High Density Lipoprotein 50 mg/dL; Potassium 4.2 mmol/L (3.5-5.1); Protein, Total 6.8 g/dL (6.4-8.2); Sodium Level 142 mmol/L (136-145); Thyroid Stim Hormone (TSH) 0.77 uIU/mL (0.358-3.74); Triglycerides 125 mg/dL; Very Low Density Lipoprotein 25 mg/dL (5-40)
== END ==
PROVIDERS: Family Provider Family Medicine Geriatric Medicine; PCP Family Medicine Geriatric Medicine; Visit Provider Family Medicine Geriatric Medicine
DX: E55.9 Vitamin D deficiency, unspecified (principal); I10 Essential (primary) hypertension; E78.49 Other hyperlipidemia
CPT/HCPCS: 36415; 80053; 80061; 82306; 84443; 85025

== ENCOUNTER 2019-02-09 14:52 | Emergency (ER) | payer MEDICARE, OTHER, SELFPAY ==
[2019-02-09 14:53] VITALS: BP 136/83; PULSE 82; RESP 18; TEMP 36.6; O2SAT 95; BMI 23.4
--- NOTE | 2019-02-09 16:05 | CT_ITS ---
STUDY: CT ABDOMEN AND PELVIS WITH CONTRAST REASON FOR EXAM: Female, 74 years old. Abdominal pain RADIATION DOSAGE (If Supplied By Facility): CTDIvol = ( 13.38 ) mGy, DLP = ( 440.64 ) mGycm TECHNIQUE: Transaxial images were obtained from the dome of the diaphragm to the symphysis pubis without oral contrast. 100 IV/Oral Isovue 370 was administered. Sagittal and coronal images were reconstructed. Individualized dose optimization techniques were used for this CT. COMPARISON: September 26, 2017 FINDINGS: The visualized lung bases are unremarkable. There are mitral annular calcifications. Normal liver. Normal gallbladder and extrahepatic biliary system. Normal spleen. There is diffuse atrophy of the pancreas. Normal bilateral adrenal glands. Normal right kidney. Normal left kidney. There is wall thickening at the gastroesophageal junction. Postoperative changes of the stomach and small bowel consistent with gastric bypass. There is postoperative change of the colon with distal resection and left lower quadrant colostomy. There is wall thickening at the hepatic flexure of the colon The appendix is visualized and appears normal. There is atherosclerotic calcification of the abdominal aorta with elongation and tortuosity, but without a demonstrated aneurysm. Normal inferior vena cava. Normal retroperitoneum. Normal urinary bladder. There multiple calcified uterine fibroids. Postoperative changes of a abdominal wall. There are diffuse degenerative changes of the visualized lumbar spine. There is mild L1 compression fracture. CT/Abdomen/Pelvis WITH Contrast IMPRESSION: Postoperative changes including gastric bypass and left lower quadrant colostomy. No obstruction. Fibroid uterus. Electronically Signed: Abhishek Blair MD at 18:33 EDT , Service support ,
--- NOTE | 2019-02-09 16:08 | ED.DCSUM_ITS ---
- ER Visit Summary Date of Service: 02/09/19 Chief Complaint: Abdominal pain History of Present Illness: The patient is a 74 F presenting with abdominal pain. She states this started earlier this afternoon. She complains of lower abdominal pain. She also complains of nausea. She states she had vomiting over the weekend, no vomiting today. She has history of colostomy. She denies increased output from her colostomy. Denies blood in her stool. Denies fever. Denies chest pain or shortness of breath. Denies urinary complaints. Physical Examination: Vitals are stable. Patient is afebrile. Alert no acute distress. HEENT exam is unremarkable. Neck is supple. Lungs are clear and equal bilaterally. Heart is regular rate and rhythm. Abdomen is soft mild lower quadrant tenderness with no rebound or guarding, colostomy Extremities are unremarkable. Skin is warm and dry. No focal neurologic deficit. Remainder of exam is unremarkable. Emergency Department Course and Treatment: Patient was given IV fluids, morphine, Zofran. CBC shows white count 20.1. Chemistries unremarkable. Liver lipase are normal. Urinalysis unremarkable. CT abdomen pelvis shows postoperative changes including gastric bypass and left lower quadrant c olostomy. No obstruction. Fibroid uterus. On reevaluation, patient is feeling much improved. Her abdomen is soft and nontender with no rebound or guarding. She is requesting to go home. Discussed with Dr. Coy her primary care physician. He will see her in the office. She is advised to return to the ED if she has any worsening complaints. Disposition: Discharge home Impression: Abdominal pain, leukocytosis This note was generated with [employer] dictation software. It may contain incorrect words, spelling, and punctuation that were not noted in review of the chart prior to signing ED Disposition - Plan for ED Patient: Instructions: ED Abdominal Pain Unkn Cause Referrals: Garret Coy Chi, MD [Primary Care Provider] -
[2019-02-09 16:32] LABS: Red Blood Cells-Urine 0 SEEN /hpf (0-5)
[2019-02-09 16:34] LABS: Absolute Lymphocyte Count 0.84 X10^3/ul (0.83-4.51); Absolute Neutrophil Count 17.9 X10^3/uL (2.0-7.7); Basophil# 0.01 X10^3/uL; Eosinophil# 0.01 X10^3/uL; Hematocrit 44.2 % (37-47); Hemoglobin 14.7 g/dl (12.0-15.0); Lymphocyte # 0.84 X10^3/ul (4.0); Lymphocyte % 4.2 % (19-41); Mean Corp Hgb Conc 33.3 g/gl (32-36); Mean Corpuscular Hgb 27.2 pg (27.0-32.0); Mean Corpuscular Volume 81.7 fL (81-99); Mean Platelet Vol. 9.3 fl (6.2-12.0); Monocyte# 1.28 X10^3/uL; Monocyte% 6.4 % (0-10); Neutrophil # 17.91 X10^3/uL (2.7-7.7); Neutrophil % 89.1 % (47-70); Platelet Count 287 K/mm3 (150-450); RBC Distribution Width CV 13.4 % (11.6-14.6); RBC Distribution Width SD 39.7 fl (35.1-43.9); Red Blood Count 5.41 M/mm3 (4.2-5.4); White Blood Count 20.1 K/mm3 (4.4-11.0)
[2019-02-09] MEDS: Ondansetron 4 MG/2 ML Vial IV (16:34)
[2019-02-09] MEDS: Morphine 4 MG/ML Syringe IV (16:36)
[2019-02-09 16:37] LABS: POSITIVE COUNT NO; POSITIVE DIFFERENTIAL NO; POSITIVE MORPHOLOGY NO
[2019-02-09 16:39] LABS: Color, Urine Amber (Yellow); Glucose, Dipstick Normal (Normal); Ketone-Dipstick 15 mg/dl (Negative); Leukocyte Esterase-Dipstick 25 /ul (Negative); Nitrite-Dipstick Negative (Negative); Occult Blood-Urine Negative /ul (Negative); Protein-Dipstick 30 mg/dl (Negative); Specific Gravity, Urine 1.025 (1.002-1.030); Urine Clarity Clear (Clear); Urine Urobilinogen 4 mg/dl (Normal)
[2019-02-09 16:43] LABS: AST(SGOT) 22 U/L (15-37); Alanine Aminotransfer ALT/SGPT 19 U/L (13-56); Albumin, Serum 3.8 g/dL (3.2-5.0); Alkaline Phosphatase 109 U/L (45-117); Anion Gap 6 (5-15); BUN 12 mg/dL (7-18); Bilirubin, Direct 0.23 mg/dL (0.00-0.30); Calcium,Total 10.3 mg/dL (8.5-10.1); Chloride 102 mmol/L (98-107); Creatinine, Serum 0.75 mg/dL (0.55-1.02); EST Glomerular Filtration Rate 80 mL/min (>60); Est Glom Filt Rate - Afr Amer 97 mL/min (>60); Estimated Creatinine Clearance 34.91 ml/min; Globulin 3.9 g/dL (2.2-4.2); Glucose 113 mg/dL (74-106); Lipase 50 U/L (73-393); Protein, Total 7.7 g/dL (6.4-8.2); Sodium Level 135 mmol/L (136-145)
[2019-02-09 16:43] LABS: Urine Bilirubin Dipstick 1 mg/dL (Negative)
[2019-02-09 16:48] LABS: Squamous Epithelial Cells - UA 0-5 SEEN /hpf (5-10); White Blood Cells 0-5 SEEN /hpf (0-5)
[2019-02-09 16:49] LABS: Bacteria RARE /hpf (None Seen); Mucous, Urine RARE /hpf (<or=2+)
[2019-02-09 17:09] VITALS: BP 152/84; PULSE 59; RESP 16; O2SAT 98
--- NOTE | 2019-02-09 19:21 | ED.DEP ---
ED Disposition - Plan for ED Patient: Instructions: ED Abdominal Pain Unkn Cause Referrals: Garret Coy Chi, MD [Primary Care Provider] -
[2019-02-09 19:34] VITALS: PULSE 68; RESP 16; O2SAT 98
== END 2019-02-09 19:34 | disposition home or self-care (01) ==
PROVIDERS: Emergency Provider Emergency Medicine; Family Provider Family Medicine Geriatric Medicine; PCP Family Medicine Geriatric Medicine
DX: R10.30 Lower abdominal pain, unspecified (principal); D72.829 Elevated white blood cell count, unspecified; Z93.3 Colostomy status; Z98.84 Bariatric surgery status; I11.0 Hypertensive heart disease with heart failure; I50.9 Heart failure, unspecified; I25.10 Atherosclerotic heart disease of native coronary artery without angina pectoris; I25.2 Old myocardial infarction; J45.909 Unspecified asthma, uncomplicated; J44.9 Chronic obstructive pulmonary disease, unspecified; K21.9 Gastro-esophageal reflux disease without esophagitis; G47.33 Obstructive sleep apnea (adult) (pediatric); I48.91 Unspecified atrial fibrillation
CPT/HCPCS: 74177; 80048; 80076; 81001; 83690; 85025; 96361; 96374; 96375; 99283; J7030; J7040; Q9967; J2405

== ENCOUNTER → 2019-02-19 | Outpatient (CLI) | payer MEDICARE, OTHER, SELFPAY ==
[2019-02-09 14:53] VITALS: BMI 23.4
--- NOTE | 2019-02-19 13:51 | RAD_ITS ---
STUDY: X-RAY - ABDOMEN/PELVIS REASON FOR EXAM: Female, 74 years old. Pain TECHNIQUE: Single AP view of the abdomen / pelvis. COMPARISON: None. FINDINGS: Normal visualized lung bases. There is an abundance of fecal material throughout the colon. There is no demonstrated free abdominal air. The visualized liver, spleen and kidneys are grossly normal in size and morphology. Normal soft tissue structures. There are diffuse degenerative changes of the visualized lumbar spine. RAD/Abdomen Single View IMPRESSION: No acute findings, retained stool Electronically Signed: Myron Mcneil MD at 14:22 EDT , Service support ,
--- NOTE | 2019-02-19 13:52 | RAD_ITS ---
STUDY: X-RAY CHEST REASON FOR EXAM: Female, 74 years old. Substernal chest pain TECHNIQUE: PA and lateral views of the chest. COMPARISON: 2016 FINDINGS: The lungs are clear and expanded. There is no demonstrated pleural abnormality. Normal size heart. Normal mediastinum and shai. Normal visualized pulmonary arteries. There is atherosclerotic calcification of the aortic arch with tortuosity. Normal visualized thoracic spine. Normal visualized ribs, clavicles, and shoulders. There is no demonstrated abnormality of the visualized soft tissue structures of the upper abdomen. RAD/Chest PA and Lateral IMPRESSION: Normal x-ray examination of the chest. Electronically Signed: Myron Mcneil MD at 14:20 EDT , Service support ,
== END | disposition home or self-care (01) ==
LOC: RAD 13:49
PROVIDERS: Family Provider Family Medicine Geriatric Medicine; PCP Family Medicine Geriatric Medicine; Referring Provider Family Medicine Geriatric Medicine; Visit Provider Family Medicine Geriatric Medicine
DX: I50.9 Heart failure, unspecified (principal); R10.9 Unspecified abdominal pain
CPT/HCPCS: 71046; 74018

== ENCOUNTER → 2019-03-01 | Outpatient (CLI) | payer MEDICARE, OTHER, SELFPAY ==
[2019-02-09 14:53] VITALS: BMI 23.4
[2019-03-01 08:57] LABS: Absolute Lymphocyte Count 2.39 X10^3/ul (0.83-4.51); Absolute Neutrophil Count 5.8 X10^3/uL (2.0-7.7); Basophil# 0.04 X10^3/uL; Basophil% 0.4 % (0-1); Eosinophil# 0.34 X10^3/uL; Eosinophils% 3.5 % (0-5); Hematocrit 42.7 % (37-47); Hemoglobin 13.9 g/dl (12.0-15.0); Lymphocyte # 2.39 X10^3/ul (4.0); Lymphocyte % 24.5 % (19-41); Mean Corp Hgb Conc 32.6 g/gl (32-36); Mean Corpuscular Hgb 27.6 pg (27.0-32.0); Mean Corpuscular Volume 84.9 fL (81-99); Mean Platelet Vol. 9.3 fl (6.2-12.0); Monocyte# 1.19 X10^3/uL; Monocyte% 12.2 % (0-10); Neutrophil # 5.78 X10^3/uL (2.7-7.7); Neutrophil % 59.3 % (47-70); Platelet Count 272 K/mm3 (150-450); RBC Distribution Width CV 14.6 % (11.6-14.6); RBC Distribution Width SD 45.1 fl (35.1-43.9); Red Blood Count 5.03 M/mm3 (4.2-5.4); White Blood Count 9.8 K/mm3 (4.4-11.0)
[2019-03-01 08:58] LABS: POSITIVE COUNT NO; POSITIVE DIFFERENTIAL NO; POSITIVE MORPHOLOGY NO
== END | disposition home or self-care (01) ==
LOC: LAB 08:38
PROVIDERS: Family Provider Family Medicine Geriatric Medicine; PCP Family Medicine Geriatric Medicine; Referring Provider Family Medicine Geriatric Medicine; Visit Provider Family Medicine Geriatric Medicine
DX: D64.9 Anemia, unspecified (principal)
CPT/HCPCS: 36415; 85025

== ENCOUNTER → 2019-05-03 | Outpatient (CLI) | payer MEDICARE, OTHER, SELFPAY ==
[2019-05-03 17:45] LABS: Absolute Lymphocyte Count 1.96 X10^3/ul (0.83-4.51); Absolute Neutrophil Count 4.7 X10^3/uL (2.0-7.7); Basophil# 0.06 X10^3/uL; Basophil% 0.8 % (0-1); Eosinophil# 0.22 X10^3/uL; Eosinophils% 2.9 % (0-5); Hematocrit 41.4 % (37-47); Hemoglobin 13.6 g/dl (12.0-15.0); Lymphocyte # 1.96 X10^3/ul (4.0); Lymphocyte % 25.6 % (19-41); Mean Corp Hgb Conc 32.9 g/gl (32-36); Mean Corpuscular Hgb 27.5 pg (27.0-32.0); Mean Corpuscular Volume 83.6 fL (81-99); Mean Platelet Vol. 10.1 fl (6.2-12.0); Monocyte# 0.69 X10^3/uL; Neutrophil # 4.71 X10^3/uL (2.7-7.7); Neutrophil % 61.6 % (47-70); Platelet Count 248 K/mm3 (150-450); RBC Distribution Width CV 14.2 % (11.6-14.6); Red Blood Count 4.95 M/mm3 (4.2-5.4); White Blood Count 7.7 K/mm3 (4.4-11.0)
[2019-05-03 17:46] LABS: POSITIVE COUNT NO; POSITIVE DIFFERENTIAL NO; POSITIVE MORPHOLOGY NO
[2019-05-03 18:02] LABS: Vitamin D,25 Hydroxy 28.6 ng/mL (29.95-100.01)
[2019-05-03 18:11] LABS: ALB/GLOB Ratio 1.1 RATIO (0.9-2.4); AST(SGOT) 24 U/L (15-37); Alanine Aminotransfer ALT/SGPT 20 U/L (13-56); Albumin, Serum 3.5 g/dL (3.2-5.0); Alkaline Phosphatase 86 U/L (45-117); Anion Gap 7 (5-15); BUN 11 mg/dL (7-18); BUN/Creat Ratio 11.9 RATIO (10-20); Calcium,Total 10.2 mg/dL (8.5-10.1); Chloride 111 mmol/L (98-107); Creatinine, Serum 0.93 mg/dL (0.55-1.02); EST Glomerular Filtration Rate 63 mL/min (>60); Est Glom Filt Rate - Afr Amer 76 mL/min (>60); Globulin 3.1 g/dL (2.2-4.2); Glucose 179 mg/dL (74-106); Potassium 3.3 mmol/L (3.5-5.1); Protein, Total 6.6 g/dL (6.4-8.2); Sodium Level 139 mmol/L (136-145); Thyroid Stim Hormone (TSH) 1.17 uIU/mL (0.358-3.74)
== END | disposition home or self-care (01) ==
LOC: POLAB3 15:17
PROVIDERS: Family Provider Family Medicine Geriatric Medicine; PCP Family Medicine Geriatric Medicine; Visit Provider Family Medicine Geriatric Medicine
DX: I10 Essential (primary) hypertension (principal); E55.9 Vitamin D deficiency, unspecified
CPT/HCPCS: 36415; 80053; 82306; 84443; 85025

== ENCOUNTER → 2019-05-13 | Outpatient (CLI) | payer MEDICARE, OTHER, SELFPAY ==
[2019-05-13 12:59] LABS: Anion Gap 5 (5-15); BUN 9 mg/dL (7-18); Calcium,Total 10.7 mg/dL (8.5-10.1); Chloride 107 mmol/L (98-107); Creatinine, Serum 0.69 mg/dL (0.55-1.02); EST Glomerular Filtration Rate 88 mL/min (>60); Est Glom Filt Rate - Afr Amer 106 mL/min (>60); Glucose 94 mg/dL (74-106); Potassium 4.4 mmol/L (3.5-5.1); Sodium Level 138 mmol/L (136-145)
== END | disposition home or self-care (01) ==
LOC: LAB.FUTURE 12:05
PROVIDERS: Family Provider Family Medicine Geriatric Medicine; PCP Family Medicine Geriatric Medicine; Visit Provider Family Medicine Geriatric Medicine
DX: E87.6 Hypokalemia (principal)
CPT/HCPCS: 36415; 80048

== ENCOUNTER → 2019-08-05 | Outpatient (CLI) | payer MEDICARE, OTHER, SELFPAY | END | disposition home or self-care (01) | LOC: POLAB3 16:39 | PROVIDERS: Family Provider Family Medicine Geriatric Medicine; PCP Family Medicine Geriatric Medicine; Visit Provider Family Medicine Geriatric Medicine | DX: N39.0 Urinary tract infection, site not specified (principal) | CPT/HCPCS: 87077; 87086; 87088; 87186 ==

== ENCOUNTER → 2019-10-04 15:16 | Outpatient (CLI) | payer MEDICARE, OTHER, SELFPAY ==
[2019-10-04 16:57] LABS: Hematocrit 39.2 % (37-47); Hemoglobin 12.6 g/dL (12.0-15.0); Red Blood Count 4.61 M/mm3 (4.2-5.4); White Blood Count 7.4 K/mm3 (4.4-11.0)
[2019-10-04 16:58] LABS: Absolute Lymphocyte Count 2.09 X10^3/uL (0.83-4.51); Absolute Neutrophil Count 4.2 X10^3/uL (2.0-7.7); Basophil# 0.03 X10^3/uL; Basophil% 0.4 % (0-1); Eosinophil# 0.27 X10^3/uL; Eosinophils% 3.6 % (0-5); Lymphocyte # 2.09 X10^3/ul (4.0); Lymphocyte % 28.1 % (19-41); Mean Corp Hgb Conc 32.1 g/dL (32-36); Mean Corpuscular Hgb 27.3 pg (27.0-32.0); Mean Platelet Vol. 10.1 fl (6.2-12.0); Monocyte% 10.8 % (0-10); NRBC Flagged by Analyzer 0 % (0-5); Neutrophil # 4.22 X10^3/uL (2.7-7.7); Neutrophil % 56.8 % (47-70); Platelet Count 238 K/mm3 (150-450); RBC Distribution Width CV 13.7 % (11.6-14.6); RBC Distribution Width SD 42.5 fl (35.1-43.9)
[2019-10-04 17:26] LABS: AST(SGOT) 17 U/L (15-37); Alanine Aminotransfer ALT/SGPT 16 U/L (13-56); Albumin, Serum 3.2 g/dL (3.2-5.0); Alkaline Phosphatase 77 U/L (45-117); Anion Gap 5 (5-15); BUN 12 mg/dL (7-18); BUN/Creat Ratio 18.3 RATIO (10-20); Calcium,Total 9.8 mg/dL (8.5-10.1); Chloride 113 mmol/L (98-107); Creatinine, Serum 0.66 mg/dL (0.55-1.02); EST Glomerular Filtration Rate 93 mL/min (>60); Est Glom Filt Rate - Afr Amer 113 mL/min (>60); Globulin 3.1 g/dL (2.2-4.2); Glucose 94 mg/dL (74-106); Potassium 3.9 mmol/L (3.5-5.1); Protein, Total 6.3 g/dL (6.4-8.2); Sodium Level 143 mmol/L (136-145); Thyroid Stim Hormone (TSH) 1.31 uIU/mL (0.358-3.74)
[2019-10-04 17:37] LABS: Vitamin D,25 Hydroxy 35.5 ng/mL (29.95-100.01)
== END ==
PROVIDERS: Family Provider Family Medicine Geriatric Medicine; PCP Family Medicine Geriatric Medicine; Visit Provider Family Medicine Geriatric Medicine
DX: E55.9 Vitamin D deficiency, unspecified (principal); I10 Essential (primary) hypertension
CPT/HCPCS: 36415; 80053; 82306; 84443; 85025

== ENCOUNTER → 2019-11-12 12:36 | Outpatient (CLI) | payer MEDICARE, SELFPAY ==
--- NOTE | 2019-11-12 12:39 | RAD_ITS ---
HISTORY: UPPER ABDOMEN PAIN, FECAL IMPACTION ADDITIONAL HISTORY: None. COMPARISON: 02/19/2019 Technique: Supine abdominal radiographs Number of images including paperwork: 2 FINDINGS: FREE AIR: None detected. BOWEL GAS PATTERN: Nonobstructive. Small amount of colonic stool. CALCIFICATIONS: No definite urinary tract calculi. ORGANS: No evidence of organomegaly. SOFT TISSUES: Unremarkable. BONES: No acute skeletal findings. Degenerative changes. Superior end plate loss of height of L1 appears similar. Ostomy ring projects over the left lower quadrant. RAD/Abdomen Single View IMPRESSION: No acute abdominal abnormality is radiographically apparent. at 0501 Reported and signed by: Bonnie Steel MD Electronically Signed: Bonnie Steel MD at 5:00 EST Tel , Service support ,
== END ==
PROVIDERS: PCP Family Medicine Geriatric Medicine; Referring Provider Family Medicine Geriatric Medicine; Visit Provider Family Medicine Geriatric Medicine
DX: K56.41 Fecal impaction (principal)
CPT/HCPCS: 74018

== ENCOUNTER → 2019-12-23 | Outpatient (CLI) | payer MEDICARE, SELFPAY | END | disposition home or self-care (01) | LOC: PSN 14:55 | PROVIDERS: PCP Family Medicine Geriatric Medicine; Referring Provider Family Medicine Geriatric Medicine; Visit Provider Family Medicine Geriatric Medicine | DX: R68.83 Chills (without fever) (principal) | CPT/HCPCS: 87633 ==

== ENCOUNTER 2020-01-12 07:51 | Emergency (ER) | payer MEDICARE, SELFPAY ==
[2020-01-12 07:52] VITALS: BP 189/88; PULSE 71; RESP 20; TEMP 36.6; O2SAT 98; BMI 21.4
--- NOTE | 2020-01-12 08:10 | CT_ITS ---
STUDY: CT ABDOMEN AND PELVIS WITH CONTRAST REASON FOR EXAM: Female, 74 years old. ABDOMINAL PAIN. 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 Oral and amp; IV Gastrografin and amp; 75 OPTIRAY 320 was administered. Sagittal and coronal images were reconstructed. Individualized dose optimization techniques were used for this CT. COMPARISON: Comparison is made with prior examination dated February 09, 2019. FINDINGS: The visualized lung bases are unremarkable. There is calcification of the mitral valve annulus. There is decreased attenuation of the liver consistent with steatosis. Normal gallbladder and extrahepatic biliary system. Normal spleen. Normal pancreas. Normal bilateral adrenal glands. Normal right kidney. Normal left kidney. There is evidence of prior subtotal gastrectomy and gastric bypass surgery. Normal small intestine. A colostomy is seen in the left lower quadrant in keeping with prior sigmoid resection. The appendix is visualized and appears normal. Normal abdominal aorta. Normal inferior vena cava. Normal retroperitoneum. Normal urinary bladder. Once again, there is evidence of ventral herniation containing nondilated small bowel loops. This is unchanged. There are diffuse degenerative changes of the visualized lumbar spine. There is approximately 50% loss of height of the L1 vertebrae. CT/Abdomen/Pelvis WITH Contrast IMPRESSION: Status post colostomy in the left lower quadrant with the ventral hernia in the abdominal and lower pelvis with small bowel loops which are not dilated. The patient is status post gastric bypass surgery and subtotal gastrectomy. No evidence of bowel obstruction at this time. Electronically Signed: Sreekanth Kenney, at 10:20 EDT , Service support ,
--- NOTE | 2020-01-12 08:10 | EKG12_ITS ---
Test Reason : Blood Pressure : / mmHG Vent. Rate : 052 BPM Atrial Rate : 052 BPM P-R Int : 182 ms QRS Dur : 090 ms QT Int : 422 ms P-R-T Axes : 038 068 027 degrees QTc Int : 392 ms Sinus bradycardia Otherwise normal ECG Confirmed by CY HASKINS, WILLIAM ([id number]), state editor MELANIE BAUTISTA ([id number]) on 01/17/2020 11:23:50 AM Referred By: LIMA Confirmed By:BIMAL BENOIT MD
--- NOTE | 2020-01-12 08:13 | ED.VISSUMM ---
- ER Visit Summary Date of Service: 01/12/20 Chief Complaint: [Abdominal pain] History of Present Illness: The patient is a 74 F [presents to the emergency department complaint of abdominal pain that started initially about 5 days ago. Patient describes the pain is in her upper abdomen. Patient was seen by her primary care physician yesterday who thought she may be constipated and ordered GoLYTELY for her. Patient states that she drank the GoLYTELY yesterday and had to empty her colostomy bag for 5 times of watery stool but was not getting much in the way of solid stool out. Patient complains of nausea today. She rates her pain an 8 or 9 out of 10. She describes her pain is up in her upper abdomen. Patient is wondering if it could be her gallbladder. She denies chest pain but states that the pain is up under her ribs and kind of radiates up into her chest. She does feel the pain at times into her back. She denies any fevers. She denies urinary symptoms.] Patient has history of diverticulitis. She has history of colostomy. Physical Examination: [HEENT-PERRLA, EOMI. Cranial nerves II through XII grossly intact. TMs clear. Mucous membranes moist. No adenopathy. Cardiovascular-regular rate and rhythm without murmur or ectopy Lungs-clear to auscultation, chest wall stable without crepitus or subcu emphysema Abdomen-normoactive bowel sounds, soft. Patient has diffuse tenderness over the right upper quadrant, epigastric region, and left upper quadrant. There is a mild guarding. There is no rebound, rigidity, or pedal signs. Extremities-intact ?4, normal range of motion, normal pulses, atraumatic] Test Results: [CBC with differential obtained showed a white count of 9.7, hemoglobin 13, hematocrit 40, placed 245. Chemistries unremarkable. LFTs were normal. Lipase was 89. Urinalysis normal. EKG obtained arrival shows sinus bradycardia with a ventricular rate of 52 bpm with no acute ST segment changes. Troponin was less than 0.015. CT scan of the abdomen pelvis with IV and p.o. contrast read by radiology as status post colostomy in the left lower quadrant with ventral hernia in the abdominal and lower pelvis with small bowel loops which are not dilated. Patient is status post gastric bypass surgery and subtotal gastrectomy. No evidence of bowel obstruction at this time.] Emergency Department Course and Treatment: [Patient was given normal saline on arrival. Patient was medicated with morphine and Zofran and she had good pain relief with that.] Treatment Plan: [Patient advised to follow-up with her primary care physician or general surgeon within next 3 to 5 days. Patient advised to return if worsening pain, fever, vomiting, or condition should worsen anyway. Patient will be given a prescription for Percocet for pain.] Disposition: [Discharged home in stable condition. ] Impression: [Abdominal pain-etiology uncertain] This note was generated with [employer] dictation software. It may contain incorrect words, spelling, and punctuation that were not noted in review of the chart prior to signing ED Disposition - Plan for ED Patient: Referrals: Garret Coy Chi, MD [Primary Care Provider] -
[2020-01-12 09:21] LABS: Absolute Lymphocyte Count 1.57 X10^3/uL (0.83-4.51); Absolute Neutrophil Count 6.8 X10^3/uL (2.0-7.7); Basophil# 0.06 X10^3/uL; Basophil% 0.6 % (0-1); Eosinophil# 0.23 X10^3/uL; Eosinophils% 2.4 % (0-5); Hematocrit 40.4 % (37-47); Lymphocyte # 1.57 X10^3/ul (4.0); Lymphocyte % 16.3 % (19-41); Mean Corp Hgb Conc 32.2 g/dL (32-36); Mean Corpuscular Hgb 27.2 pg (27.0-32.0); Mean Corpuscular Volume 84.5 fL (81-99); Mean Platelet Vol. 9.5 fl (6.2-12.0); Monocyte# 0.95 X10^3/uL; Monocyte% 9.8 % (0-10); NRBC Flagged by Analyzer 0 % (0-5); Neutrophil % 70.4 % (47-70); Platelet Count 245 K/mm3 (150-450); RBC Distribution Width CV 13.5 % (11.6-14.6); RBC Distribution Width SD 41.8 fl (35.1-43.9); Red Blood Count 4.78 M/mm3 (4.2-5.4); White Blood Count 9.7 K/mm3 (4.4-11.0)
[2020-01-12] MEDS: 0.9% Normal Saline 1,000 ML 125 ML IV (09:27)
[2020-01-12] MEDS: Ondansetron 4 MG/2 ML Vial IV (09:29)
[2020-01-12] MEDS: Morphine 4 MG/ML Syringe IV (09:30)
[2020-01-12 09:38] LABS: Bacteria 0 SEEN /hpf (None Seen); Mucous, Urine 0 SEEN /hpf (<or=2+); Red Blood Cells-Urine 0 SEEN /hpf (0-5); Squamous Epithelial Cells - UA 0 SEEN /hpf (5-10); White Blood Cells 0 SEEN /hpf (0-5)
[2020-01-12 09:42] LABS: Color, Urine Yellow (Yellow); Glucose, Dipstick Normal (Normal); Ketone-Dipstick Negative (Negative); Leukocyte Esterase-Dipstick Negative /ul (Negative); Nitrite-Dipstick Negative (Negative); Occult Blood-Urine Negative /ul (Negative); Protein-Dipstick Negative (Negative); Specific Gravity, Urine 1.015 (1.002-1.030); Urine Bilirubin Dipstick Negative (Negative); Urine Clarity Clear (Clear); Urine Urobilinogen Normal (Normal)
[2020-01-12 09:47] LABS: Lactic Acid 1.4 mmol/L (0.4-1.9)
[2020-01-12 09:50] LABS: ALB/GLOB Ratio 0.9 RATIO (0.9-2.4); AST(SGOT) 33 U/L (15-37); Alanine Aminotransfer ALT/SGPT 30 U/L (13-56); Albumin, Serum 3.3 g/dL (3.2-5.0); Alkaline Phosphatase 84 U/L (45-117); Anion Gap 6 (5-15); BUN 9 mg/dL (7-18); BUN/Creat Ratio 12.6 RATIO (10-20); Calcium,Total 9.7 mg/dL (8.5-10.1); Chloride 106 mmol/L (98-107); Creatinine, Serum 0.71 mg/dL (0.55-1.02); EST Glomerular Filtration Rate 85 mL/min (>60); Est Glom Filt Rate - Afr Amer 103 mL/min (>60); Estimated Creatinine Clearance 34.91 ml/min; Globulin 3.7 g/dL (2.2-4.2); Glucose 104 mg/dL (74-106); Lipase 89 U/L (73-393); Potassium 3.5 mmol/L (3.5-5.1); Sodium Level 138 mmol/L (136-145)
[2020-01-12 10:26] VITALS: BP 205/85; PULSE 60; RESP 16; O2SAT 97
--- NOTE | 2020-01-12 10:52 | ED.DEP ---
ED Disposition - Plan for ED Patient: Instructions: ABDOMINAL PAIN, Unknown Cause, (Female) Prescriptions: Oxycodone HCl/Acetaminophen [Percocet 5/325] 1 tablet PO Q6H PRN PRN 3 Days #12 tablet PRN Reason: Pain Transmission Status: Sent to [id number] Referrals: Garret Coy Chi, MD [Primary Care Provider] - 3-5 Days Adarsh Ibarra MD [STAFF PHYSICIAN] - 3-5 Days
== END 2020-01-12 11:07 | disposition home or self-care (01) ==
PROVIDERS: Emergency Provider Emergency Medicine; PCP Family Medicine Geriatric Medicine
DX: R10.10 Upper abdominal pain, unspecified (principal); Z93.3 Colostomy status; Z98.84 Bariatric surgery status
CPT/HCPCS: 74177; 80053; 81001; 83605; 83690; 84484; 85025; 93005; 96361; 96374; 96375; 99284; J7030; Q9967; A4216; J2405

== ENCOUNTER → 2020-04-03 13:57 | Outpatient (CLI) | payer MEDICARE, SELFPAY ==
[2020-04-03 17:11] LABS: Absolute Lymphocyte Count 2.31 X10^3/uL (0.83-4.51); Absolute Neutrophil Count 5.4 X10^3/uL (2.0-7.7); Basophil# 0.06 X10^3/uL; Basophil% 0.6 % (0-1); Eosinophil# 0.34 X10^3/uL; Eosinophils% 3.7 % (0-5); Hematocrit 39.4 % (37-47); Hemoglobin 12.3 g/dL (12.0-15.0); Lymphocyte # 2.31 X10^3/ul (4.0); Mean Corp Hgb Conc 31.2 g/dL (32-36); Mean Corpuscular Volume 86.6 fL (81-99); Mean Platelet Vol. 10.1 fl (6.2-12.0); Monocyte# 1.09 X10^3/uL; Monocyte% 11.8 % (0-10); NRBC Flagged by Analyzer 0 % (0-5); Neutrophil # 5.43 X10^3/uL (2.7-7.7); Neutrophil % 58.7 % (47-70); Platelet Count 267 K/mm3 (150-450); RBC Distribution Width CV 14.3 % (11.6-14.6); RBC Distribution Width SD 44.8 fl (35.1-43.9); Red Blood Count 4.55 M/mm3 (4.2-5.4); White Blood Count 9.3 K/mm3 (4.4-11.0)
[2020-04-03 17:25] LABS: Vitamin D,25 Hydroxy 32.2 ng/mL
[2020-04-03 17:33] LABS: ALB/GLOB Ratio 0.9 RATIO (0.9-2.4); AST(SGOT) 20 U/L (15-37); Alanine Aminotransfer ALT/SGPT 19 U/L (13-56); Albumin, Serum 3.3 g/dL (3.2-5.0); Alkaline Phosphatase 83 U/L (45-117); Anion Gap 7 (5-15); BUN 10 mg/dL (7-18); BUN/Creat Ratio 14.1 RATIO (10-20); Calcium,Total 10.1 mg/dL (8.5-10.1); Chloride 109 mmol/L (98-107); Creatinine, Serum 0.71 mg/dL (0.55-1.02); EST Glomerular Filtration Rate 85 mL/min (>60); Est Glom Filt Rate - Afr Amer 103 mL/min (>60); Globulin 3.6 g/dL (2.2-4.2); Glucose 74 mg/dL (74-106); Potassium 3.9 mmol/L (3.5-5.1); Protein, Total 6.9 g/dL (6.4-8.2); Sodium Level 142 mmol/L (136-145); Thyroid Stim Hormone (TSH) 1.86 uIU/mL (0.358-3.74)
== END ==
PROVIDERS: PCP Family Medicine Geriatric Medicine; Visit Provider Family Medicine Geriatric Medicine
DX: E55.9 Vitamin D deficiency, unspecified (principal); I10 Essential (primary) hypertension
CPT/HCPCS: 36415; 80053; 82306; 84443; 85025

== ENCOUNTER → 2020-08-11 | Outpatient (CLI) | payer MEDICARE, SELFPAY | END | disposition home or self-care (01) | LOC: MTDU 17:38 | PROVIDERS: PCP Family Medicine Geriatric Medicine; Visit Provider Family Medicine Geriatric Medicine | DX: R06.89 Other abnormalities of breathing (principal) | CPT/HCPCS: 87633; 87635; C9803; U0003 ==

== ENCOUNTER → 2020-08-15 | Outpatient (CLI) | payer MEDICARE, SELFPAY ==
--- NOTE | 2020-08-15 11:35 | BI_ITS ---
MAMMOGRAPHY - BILATERAL SCREENING REASON FOR EXAM: Female, 75 years old. Routine annual screening examination. PERTINENT HISTORY: Sister with breast cancer. Remote right stereotactic breast biopsy. TECHNIQUE: Digital bilateral breast marjorie (3D mammographic acquisition) in the CC and MLO projections. 2-D mediolateral oblique (MLO) and craniocaudad (CC) views of both breasts were obtained. CAD: Full Field Digital Mammography with Computer Added Detection was performed. COMPARISON: Comparison is made with prior study dated 01/06/2017. FINDINGS: Breast Composition: There are scattered areas of fibroglandular density. There are no dominant masses or suspicious calcifications. Stable 6 mm x 6.4 mm well-defined hypodense nodule in the mid medial portion of the right breast. This most likely represents a small lymph node. No other significant abnormalities are identified. There has been no significant change since the prior study. BI/SCREEN MAMM (CAD) W/MARJORIE BILAT IMPRESSION: Stable bilateral screening mammogram. Yearly follow-up mammogram recommended. (A) ASSESSMENT CATEGORY: BIRADS Category 2: Benign. A letter regarding these results will be sent to the patient by the facility within 30 days. Approximately 10% of breast cancers are not detected by mammography. A normal mammogram should not delay biopsy of a clinically suspicious abnormality. [id number] Electronically Signed: Sreekanth Kenney, at 12:19 EDT , Service support ,
== END | disposition home or self-care (01) ==
LOC: OPBI 11:30
PROVIDERS: PCP Family Medicine Geriatric Medicine; Referring Provider Family Medicine Geriatric Medicine; Visit Provider Family Medicine Geriatric Medicine
DX: Z12.31 Encounter for screening mammogram for malignant neoplasm of breast (principal)
CPT/HCPCS: 77063; 77067

== ENCOUNTER → 2020-10-02 10:54 | Outpatient (CLI) | payer MEDICARE, SELFPAY ==
[2020-10-02 11:31] LABS: Absolute Lymphocyte Count 1.64 X10^3/uL (0.83-4.51); Absolute Neutrophil Count 3.9 X10^3/uL (2.0-7.7); Basophil# 0.05 X10^3/uL; Basophil% 0.7 % (0-1); Eosinophil# 0.31 X10^3/uL; Eosinophils% 4.6 % (0-5); Hematocrit 39.7 % (37-47); Hemoglobin 12.1 g/dL (12.0-15.0); Lymphocyte # 1.64 X10^3/ul (4.0); Lymphocyte % 24.5 % (19-41); Mean Corp Hgb Conc 30.5 g/dL (32-36); Mean Corpuscular Hgb 25.5 pg (27.0-32.0); Mean Corpuscular Volume 83.8 fL (81-99); Mean Platelet Vol. 9.6 fl (6.2-12.0); Monocyte# 0.78 X10^3/uL; Monocyte% 11.6 % (0-10); NRBC Flagged by Analyzer 0 % (0-5); Neutrophil % 58.3 % (47-70); Platelet Count 296 K/mm3 (150-450); RBC Distribution Width CV 14.1 % (11.6-14.6); RBC Distribution Width SD 43.4 fl (35.1-43.9); Red Blood Count 4.74 M/mm3 (4.2-5.4); White Blood Count 6.7 K/mm3 (4.4-11.0)
[2020-10-02 11:49] LABS: Anion Gap 4 (5-15); BUN 9 mg/dL (7-18); BUN/Creat Ratio 12.9 RATIO (10-20); Calcium,Total 10.5 mg/dL (8.5-10.1); Chloride 111 mmol/L (98-107); EST Glomerular Filtration Rate 87 mL/min (>60); Est Glom Filt Rate - Afr Amer 105 mL/min (>60); Glucose 91 mg/dL (74-106); Potassium 4.3 mmol/L (3.5-5.1); Sodium Level 141 mmol/L (136-145)
[2020-10-02 12:54] LABS: M R Staph aureus DNA By PCR Negative (Negative); Probe Check PASS; Specimen Processing Control PASS; Staph aureus DNA By PCR NEGATIVE (Negative)
== END ==
PROVIDERS: PCP Family Medicine Geriatric Medicine; Visit Provider Family Medicine Geriatric Medicine
DX: M79.609 Pain in unspecified limb (principal); B95.62 Methicillin resistant Staphylococcus aureus infection as the cause of diseases classified elsewhere
CPT/HCPCS: 36415; 80048; 85025; 87070; 87077; 87186; 87205; 87640

== ENCOUNTER → 2020-10-10 15:38 | Outpatient (CLI) | payer MEDICARE, SELFPAY ==
[2020-10-10 16:35] LABS: Anion Gap 5 (5-15); BUN 8 mg/dL (7-18); BUN/Creat Ratio 9.4 RATIO (10-20); Calcium,Total 10.4 mg/dL (8.5-10.1); Chloride 105 mmol/L (98-107); Creatinine, Serum 0.85 mg/dL (0.55-1.02); EST Glomerular Filtration Rate 69 mL/min (>60); Est Glom Filt Rate - Afr Amer 83 mL/min (>60); Glucose 148 mg/dL (74-106); Potassium 3.4 mmol/L (3.5-5.1); Sodium Level 138 mmol/L (136-145)
== END ==
PROVIDERS: PCP Family Medicine Geriatric Medicine; Visit Provider Family Medicine Geriatric Medicine
DX: E83.52 Hypercalcemia (principal)
CPT/HCPCS: 36415; 80048

== ENCOUNTER → 2020-10-11 16:31 | Outpatient (CLI) | payer MEDICARE, SELFPAY ==
[2020-10-11 18:34] LABS: Vitamin D,25 Hydroxy 31.9 ng/mL
[2020-10-12 08:27] LABS: PTHIN 54.8 pg/mL (18.4-80.1)
== END ==
PROVIDERS: PCP Family Medicine Geriatric Medicine; Visit Provider Family Medicine Geriatric Medicine
DX: E21.3 Hyperparathyroidism, unspecified (principal); E55.9 Vitamin D deficiency, unspecified
CPT/HCPCS: 36415; 82306; 83970

== ENCOUNTER → 2020-10-14 10:14 | Outpatient (CLI) | payer MEDICARE, SELFPAY ==
[2020-10-14 12:45] LABS: (24 HR) Urine Calcium 130.5 mg/24 HR (42.0-353.0); 24HR UR TOTAL VOLUME 900 ml; Calcium Urine pH Range 2; Urine Calcium (Random) 14.5 (Not Estab.)
== END ==
PROVIDERS: PCP Family Medicine Geriatric Medicine; Referring Provider Family Medicine Geriatric Medicine; Visit Provider Family Medicine Geriatric Medicine
DX: E83.52 Hypercalcemia (principal)
CPT/HCPCS: 81050; 82340

== ENCOUNTER → 2020-10-16 14:35 | Outpatient (CLI) | payer MEDICARE, SELFPAY ==
--- NOTE | 2020-10-16 14:50 | RAD_ITS ---
STUDY: X-RAY - ABDOMEN/PELVIS REASON FOR EXAM: Female, 75 years old. FECAL IMPACTION OF COLON TECHNIQUE: Frontal views COMPARISON: None. FINDINGS: Normal visualized lung bases. There is an unremarkable bowel gas pattern. There is a left-sided ostomy apparatus. No significant colonic fecal retention. There is no demonstrated free abdominal air. The visualized liver, spleen and kidneys are grossly normal in size and morphology. Normal soft tissue structures. Degenerative vertebral changes. RAD/Abd Inc Decub and/or Erect IMPRESSION: No significant fecal retention. Electronically Signed: Gordon Issa DO at 16:10 EST Tel [phone], Service support ,
[2020-10-16 17:19] LABS: Absolute Lymphocyte Count 1.73 X10^3/uL (0.83-4.51); Absolute Neutrophil Count 5.2 X10^3/uL (2.0-7.7); Basophil# 0.03 X10^3/uL; Basophil% 0.4 % (0-1); Eosinophil# 0.27 X10^3/uL; Eosinophils% 3.3 % (0-5); Hemoglobin 12.1 g/dL (12.0-15.0); Lymphocyte # 1.73 X10^3/ul (4.0); Lymphocyte % 21.2 % (19-41); Mean Corp Hgb Conc 32.7 g/dL (32-36); Mean Corpuscular Hgb 27.7 pg (27.0-32.0); Mean Corpuscular Volume 84.7 fL (81-99); Mean Platelet Vol. 12.1 fl (6.2-12.0); Monocyte# 0.89 X10^3/uL; Monocyte% 10.9 % (0-10); NRBC Flagged by Analyzer 0 % (0-5); Neutrophil # 5.19 X10^3/uL (2.7-7.7); Neutrophil % 63.7 % (47-70); Platelet Count 180 K/mm3 (150-450); RBC Distribution Width SD 41.7 fl (35.1-43.9); Red Blood Count 4.37 M/mm3 (4.2-5.4); White Blood Count 8.2 K/mm3 (4.4-11.0)
[2020-10-16 17:46] LABS: ALB/GLOB Ratio 0.7 RATIO (0.9-2.4); AST(SGOT) 13 U/L (15-37); Alanine Aminotransfer ALT/SGPT 12 U/L (13-56); Albumin, Serum 2.9 g/dL (3.2-5.0); Alkaline Phosphatase 87 U/L (45-117); Anion Gap 6 (5-15); BUN 9 mg/dL (7-18); BUN/Creat Ratio 9.8 RATIO (10-20); Calcium,Total 10.2 mg/dL (8.5-10.1); Chloride 104 mmol/L (98-107); Creatinine, Serum 0.92 mg/dL (0.55-1.02); EST Glomerular Filtration Rate 63 mL/min (>60); Est Glom Filt Rate - Afr Amer 76 mL/min (>60); Globulin 4.1 g/dL (2.2-4.2); Glucose 128 mg/dL (74-106); Potassium 3.1 mmol/L (3.5-5.1); Sodium Level 139 mmol/L (136-145); Thyroid Stim Hormone (TSH) 1.92 uIU/mL (0.358-3.74)
== END ==
LOC: POLAB3 14:37 → RAD 14:49
PROVIDERS: PCP Family Medicine Geriatric Medicine; Referring Provider Family Medicine Geriatric Medicine; Visit Provider Family Medicine Geriatric Medicine
DX: E55.9 Vitamin D deficiency, unspecified (principal); I10 Essential (primary) hypertension; K56.41 Fecal impaction
CPT/HCPCS: 36415; 74019; 80053; 82306; 84443; 85025

== ENCOUNTER → 2020-10-23 13:33 | Outpatient (CLI) | payer MEDICARE, SELFPAY ==
--- NOTE | 2020-10-23 13:35 | CT_ITS ---
STUDY: CT ABDOMEN AND PELVIS WITH CONTRAST REASON FOR EXAM: Female, 75 years old. ABD PAIN RADIATION DOSAGE (If Supplied By Facility): CTDIvol = ( 5.015 ) mGy, DLP = ( 362.38 ) mGycm TECHNIQUE: Transaxial images were obtained from the dome of the diaphragm to the symphysis pubis without oral contrast. Oral and amp; IV Gastrografin and amp; 100mL Isovue-300 was administered. Sagittal and coronal images were reconstructed. Individualized dose optimization techniques were used for this CT. COMPARISON: None. FINDINGS: The visualized lung bases are unremarkable. The visualized portions of the heart are within normal limits. Normal liver. Normal gallbladder and extrahepatic biliary system. Normal spleen. Normal pancreas. Normal bilateral adrenal glands. Normal right kidney. Normal left kidney. There is a gastric bypass. Normal small intestine. There is left lower quadrant colostomy. There is non-visualization of the appendix. Normal abdominal aorta. Normal inferior vena cava. Normal retroperitoneum. Normal urinary bladder. Multiple small calcified uterine fibroids are noted the largest measures 3 cm There is large anterior abdominal wall hernia containing part of the colon and small bowel loops without evidence of incarceration or bowel obstruction. There are diffuse degenerative changes of the visualized lumbar spine. There is an old compression fracture of L1. CT/Abdomen/Pelvis WITH Contrast IMPRESSION: Multiple small calcified uterine fibroids are noted the largest measures 3 cm There is large anterior abdominal wall hernia containing part of the colon and small bowel loops without evidence of incarceration or bowel obstruction There is an old compression fracture of L1. Electronically Signed: Edmund Kaye, at 15:35 EST Tel , Service support ,
== END ==
PROVIDERS: PCP Family Medicine Geriatric Medicine; Referring Provider Family Medicine Geriatric Medicine; Visit Provider Family Medicine Geriatric Medicine
DX: R10.9 Unspecified abdominal pain (principal)
CPT/HCPCS: 36415; 74177; 80053; 85025; 87086; 87088; Q9967

== ENCOUNTER → 2021-06-14 09:11 | Outpatient (CLI) | payer MEDICARE, SELFPAY ==
[2021-06-14 12:26] LABS: Absolute Lymphocyte Count 2.35 X10^3/uL (0.83-4.51); Absolute Neutrophil Count 4.6 X10^3/uL (2.0-7.7); Basophil# 0.05 X10^3/uL; Basophil% 0.6 % (0-1); Eosinophil# 0.46 X10^3/uL; Eosinophils% 5.3 % (0-5); Hematocrit 39.3 % (37-47); Hemoglobin 12.4 g/dL (12.0-15.0); Lymphocyte # 2.35 X10^3/ul (0.83-4.51); Mean Corp Hgb Conc 31.6 g/dL (32-36); Mean Corpuscular Hgb 25.4 pg (27.0-32.0); Mean Corpuscular Volume 80.4 fL (81-99); Mean Platelet Vol. 10.1 fl (6.2-12.0); Monocyte# 1.21 X10^3/uL; Monocyte% 13.9 % (0-10); NRBC Flagged by Analyzer 0 % (0-5); Neutrophil # 4.62 X10^3/uL (2.7-7.7); Platelet Count 303 K/mm3 (150-450); RBC Distribution Width CV 15.6 % (11.6-14.6); RBC Distribution Width SD 45.3 fl (35.1-43.9); Red Blood Count 4.89 M/mm3 (4.2-5.4); White Blood Count 8.7 K/mm3 (4.4-11.0)
[2021-06-14 12:50] LABS: Vitamin D,25 Hydroxy 51.7 ng/mL
[2021-06-14 12:54] LABS: ALB/GLOB Ratio 0.9 RATIO (0.9-2.4); AST(SGOT) 17 U/L (15-37); Alanine Aminotransfer ALT/SGPT 20 U/L (13-56); Albumin, Serum 3.5 g/dL (3.2-5.0); Alkaline Phosphatase 88 U/L (45-117); Anion Gap 6 (5-15); BUN 15 mg/dL (7-18); BUN/Creat Ratio 21.7 RATIO (10-20); Calcium,Total 10.6 mg/dL (8.5-10.1); Chloride 108 mmol/L (98-107); Creatinine, Serum 0.69 mg/dL (0.55-1.02); EST Glomerular Filtration Rate 88 mL/min (>60); Est Glom Filt Rate - Afr Amer 106 mL/min (>60); Glucose 71 mg/dL (74-106); Potassium 3.7 mmol/L (3.5-5.1); Protein, Total 7.5 g/dL (6.4-8.2); Sodium Level 140 mmol/L (136-145); Thyroid Stim Hormone (TSH) 2.98 uIU/mL (0.358-3.74)
== END ==
PROVIDERS: PCP Family Medicine Geriatric Medicine; Visit Provider Family Medicine Geriatric Medicine
DX: E55.9 Vitamin D deficiency, unspecified (principal); I10 Essential (primary) hypertension
CPT/HCPCS: 36415; 80053; 82306; 84443; 85025

== ENCOUNTER 2021-07-14 14:00 | Emergency (ER) | payer MEDICARE, SELFPAY ==
[2021-07-14 14:01] VITALS: BP 113/90; PULSE 80; RESP 16; TEMP 37.3; O2SAT 98; BMI 21.4
--- NOTE | 2021-07-14 15:45 | CT_ITS ---
STUDY: CT BRAIN WITHOUT CONTRAST REASON FOR EXAM: Female, 76 years old. Fall trauma laceration RADIATION DOSAGE (If Supplied By Facility): CTDIvol = ( 44.99 ) mGy, DLP = ( 779.24 ) mGycm TECHNIQUE: Transaxial CT imaging of the brain was performed without administration of intravenous contrast material. Individualized dose optimization techniques were used for this CT. COMPARISON: No relevant priors. FINDINGS: Brain parenchyma is without focal lesions, mass effect, acute intracranial hemorrhage, extra parenchymal fluid collections, hydrocephalus or herniation. The skull is intact. There is a moderate sized right parietal vertex scalp hematoma. CT/Brain/Head without Contrast IMPRESSION: 1. Normal CT brain. 2. No acute intracranial injury. 3. Moderate right parietal scalp hematoma. Electronically Signed: Chun Huffman MD at 16:43 EDT Tel , Service support ,
--- NOTE | 2021-07-14 15:46 | EX.ED.GENINJ ---
HPI History of Present Illness Chief Complaint: Head Injury Informant: patient and spouse/S.O. Narrative Narrative: 76-year-old female states that she was working outside today when she fell down embankment striking her head on a rock. She notes a large amount of bleeding and laceration. No loss of consciousness. She is not on a blood thinners. Last tetanus was about 1 year ago. She denies any other injuries she denies specifically neck or back pain. PFSH PFS Medical History Abdominal pain Acute severe exacerbation of asthma Allergic rhinitis due to allergen Asthma Atrial fibrillation with rapid ventricular response Benign essential HTN CAD (coronary artery disease) Congestive heart failure COPD (chronic obstructive pulmonary disease) Depression Failure to thrive in adult Gastroparesis GERD (gastroesophageal reflux disease) Hiatal hernia HTN (hypertension) Hyperlipidemia Insomnia Mixed anxiety depressive disorder Myocardial infarction Obesity (BMI 30.0-34.9) Obstructive sleep apnea Perforated diverticulum of large intestine Peristomal hernia Tobacco abuse Vitamin B12 deficiency Vitamin D deficiency Home Medications albuterol sulfate 2.5 mg INHALATION Q4H PRN PRN 03/19/16 [History Last Taken Unknown] budesonide-formoterol 2 puff INHALATION BID 03/19/16 [History Last Taken Unknown] acetaminophen 650 mg PO Q6H PRN PRN 08/02/16 [History Last Taken Unknown] cholecalciferol (vitamin D3) 1,000 unit PO DAILY 08/02/16 [History Last Taken 08/02/16916] cyanocobalamin (vitamin B-12) 1,000 mcg PO DAILY 08/02/16 [History Last Taken 08/02/16916] ipratropium-albuterol 3 ml INHALATION Q4H PRN PRN 08/02/16 [History Last Taken Unknown] tolterodine 2 mg PO DAILY #14 cap.sa 09/04/16 [Rx Last Taken Unknown] budesonide 0.5 mg INHALATION Q12H PRN PRN 11/13/16 [History Last Taken Unknown] nkjadxae-ann-urra fum-folic ac 1 tab PO DAILY 11/13/16 [History Last Taken Unknown] pantoprazole 40 mg PO DAILY 12/24/16 [History Last Taken 12/25/16 05:10] metoclopramide HCl 10 mg tablet 10 mg PO TID PRN 10/13/17 [History Last Taken Unknown] ondansetron HCl 8 mg tablet 8 mg PO TID PRN tab 10/13/17 [History Last Taken Unknown] Allergy/AdvReac Type Severity Reaction Status Date / Time hydromorphone [From Dilaudid] Allergy Unknown Unknown Verified 01/12/20 07:53 levofloxacin [From Levaquin] Allergy Hives Verified 01/12/20 07:53 Penicillins Allergy Hives Verified 01/12/20 07:53 Family History Mother No problems noted. Surgical History S/P cataract surgery S/P colostomy Social History Smoking Status: Current every day smoker tobacco type: cigarettes second hand exposure: No alcohol intake: never substance use type: does not use caffeine: Yes what type of physical activity do you participate in: none frequency: does not exercise seatbelt use: always ROS ROS ED Constitutional Constitutional ED: Denies chills or weight loss Eyes Eyes: Denies change in vision or diplopia ENT ENT ED: Denies ear pain, rhinorrhea or sore throat Cardiovascular Cardiovascular: Denies chest pain, orthopnea, palpitations or racing heartbeat Respiratory/Chest Respiratory/Chest: Denies cough, dyspnea or orthopnea Gastrointestinal Gastrointestinal: Denies abdominal pain, diarrhea, nausea or vomiting Genitourinary Genitourinary ED: Denies dysuria, hematuria or urinary frequency Musculoskeletal Musculoskeletal: Denies arthralgias or myalgias Integumentary Reports other Details: Right parietal laceration ; Denies abscess or rash Neurologic Neurologic: Denies headache(s) or weakness Psychiatric Psychiatric: Denies anxiety, depression, suicidal ideation or suicidal thoughts Endocrine Endocrinology: Denies polydipsia, polyphagia or polyuria Allergic/Immunologic Allergic/Immunologic ED: Denies mouth swelling, tongue swelling or urticaria EXAM Physical Exam Const Vital Signs: 07/14/21 14:01 07/14/21 15:59 Temperature 99.2 F H Temperature Source Oral Pulse Rate 80 Respiratory Rate 16 Respiratory Effort Normal Non-Labored Respiratory Depth Normal Respiratory Pattern Normal Blood Pressure 113/90 H Blood Pressure Mean 97 Pulse Ox 98 Oxygen Delivery Method Room Air Positive well nourished and well developed General Appearance ED: well developed HEENT Reports normocephalic, head/scalp atraumatic, TM's clear and moist mucous membranes HEENT Narrative: There is a large 8 cm curvilinear laceration on the right parietal scalp. There are 3 areas of arteriole bleeding. trauma Tympanic Membrane ED: Yes TM's clear Eyes PERRL and EOMs intact bilaterally Neck no lymphadenopathy, supple and no JVD Resp normal respiratory effort and clear to auscultation bilaterally Cardio regular rate, regular rhythm and no murmurs GI normal to inspection, nondistended, normoactive bowel sounds and non-tender Palpation: soft Back/Spine no CVA tenderness and normal ROM Extremity normal to inspection General Extremety ED: Negative for edema General Extremity: Negative for edema Neuro oriented x3 and CN's II-XII intact bilaterally Sensorium / Orientation: alert Motor Exam: strength 5/5 throughout Psych mental status grossly normal Mood & Affect: Negative for depressed or tearful Skin no rashes or lesions noted and no wounds MDM MDM MDM Narrative Medical decision making narrative: Due to the presence of significant arteriole bleeding I first tied off the arterioles with 5-0 Vicryl sutures. The wounds were then locally anesthetized using 1% lidocaine with epinephrine. Wound was washed with Shur-Clens explored. Large amount of clots evacuated. Eventually was closed using approximately fifteen 3-0 Ethilon sutures. Bleeding controlled. CT of the brain was obtained which demonstrates no skull fracture or intracranial hemorrhage. Patient will be discharged home stitches will need to be removed in 1 week. Ice rest return if worsening or any concerns. Radiography Diagnostic Testing: Radiology Impression Brain CT 07/14/21 15:45 IMPRESSION: 1. Normal CT brain. 2. No acute intracranial injury. 3. Moderate right parietal scalp hematoma. Electronically Signed: Chun Huffman MD at 16:43 EDT Tel , Service support , Discharge Plan Triage Chief Complaint: Head Injury ED Provider: Norman Weeks Dx/Rx/DC Orders Clinical Impression: Laceration of scalp Instructions: ED Laceration Scalp Stitches or Carmen, ED Head Injury (Adult) Prescriptions: No Action metoclopramide HCl [Reglan] 10 mg tablet 10 mg PO TID PRN (Reason: Nausea) RF: 0 ondansetron HCl [Zofran] 8 mg tablet 8 mg PO TID PRN (Reason: Nausea) RF: 0 albuterol sulfate 2.5 MG/3 ML Vial.Neb. 2.5 mg inhalation Q4H PRN PRN (Reason: Bronchodialation) RF: 0 budesonide-formoterol 1 INHALER inhaler 2 puff INHALATION BID RF: 0 acetaminophen 650 MG tablet extended release 650 mg PO Q6H PRN PRN (Reason: Pain) RF: 0 ipratropium-albuterol 3 ML solution for nebulization 3 ml INHALATION Q4H PRN PRN (Reason: Bronchodialation) RF: 0 cholecalciferol (vitamin D3) 1,000 UNIT tablet 1,000 unit PO DAILY RF: 0 cyanocobalamin (vitamin B-12) 1,000 MCG tablet 1,000 mcg PO DAILY RF: 0 tolterodine 2 MG capsule,extended release 24hr 2 mg PO DAILY Qty: 14 RF: 0 puqimiwu-hso-lfml fum-folic ac 1 EACH tablet 1 tab PO DAILY RF: 0 budesonide 0.5 MG/2 ML Ampul.Neb. 0.5 mg inhalation Q12H PRN PRN (Reason: Bronchodialation) RF: 0 pantoprazole 40 MG tablet 40 mg PO DAILY RF: 0 Primary Care Provider: Garret Coy Chi Referrals: Garret Coy Chi, MD [Primary Care Provider] - 7 Days for suture removal Disposition Disposition: Home, Self Care
[2021-07-14] MEDS: Lidocaine 1% /Epi 1:100 (20ml) 20 ML Vial INFILT (15:50)
== END 2021-07-14 17:29 | disposition home or self-care (01) ==
PROVIDERS: Emergency Provider Emergency Medicine; PCP Family Medicine Geriatric Medicine
DX: S01.01XA Laceration without foreign body of scalp, initial encounter (principal); I25.10 Atherosclerotic heart disease of native coronary artery without angina pectoris; I25.2 Old myocardial infarction; F17.210 Nicotine dependence, cigarettes, uncomplicated; W19.XXXA Unspecified fall, initial encounter
CPT/HCPCS: 12004; 70450; 99283

== ENCOUNTER → 2021-08-10 11:08 | Outpatient (CLI) | payer MEDICARE, SELFPAY ==
--- NOTE | 2021-08-10 11:15 | RAD_ITS ---
STUDY: X-RAY - ABDOMEN/PELVIS REASON FOR EXAM: Female, 76 years old. Acute abdominal pain TECHNIQUE: Frontal views COMPARISON: None. FINDINGS: Normal visualized lung bases. There is an unremarkable bowel gas pattern. There is no demonstrated free abdominal air. The visualized liver, spleen and kidneys are grossly normal in size and morphology. Normal soft tissue structures. Degenerative vertebral changes. RAD/Abd Inc Decub and/or Erect IMPRESSION: No sign of bowel obstruction. Electronically Signed: Gordon Issa DO at 22:31 EDT Tel [phone], Service support ,
== END ==
PROVIDERS: PCP Family Medicine Geriatric Medicine; Referring Provider Internal Medicine Gastroenterology; Visit Provider Internal Medicine Gastroenterology
DX: R10.9 Unspecified abdominal pain (principal)
CPT/HCPCS: 74019

== ENCOUNTER → 2021-08-22 13:53 | Outpatient (CLI) | payer MEDICARE, SELFPAY ==
--- NOTE | 2021-08-22 13:56 | RAD_ITS ---
STUDY: X-RAY - ABDOMEN/PELVIS REASON FOR EXAM: Female, 76 years old. Fecal impaction TECHNIQUE: AP supine and upright views of the abdomen and pelvis. COMPARISON: Comparison is made with prior study 08/10/2001. FINDINGS: Normal visualized lung bases. There is an abundance of fecal material throughout the colon. There is no demonstrated free abdominal air. The visualized liver, spleen and kidneys are grossly normal in size and morphology. Normal soft tissue structures. There are diffuse degenerative changes of the visualized lumbar spine. 50% loss of height of the superior endplate of the L1 vertebrae. RAD/Abd Inc Decub and/or Erect IMPRESSION: Large amount of fecal material is seen. Electronically Signed: Sreekanth Kenney MD at 14:27 EDT , Service support ,
== END ==
PROVIDERS: PCP Family Medicine Geriatric Medicine; Referring Provider Family Medicine Geriatric Medicine; Visit Provider Family Medicine Geriatric Medicine
DX: K56.41 Fecal impaction (principal)
CPT/HCPCS: 74019

== ENCOUNTER 2021-08-24 10:30 | Outpatient (RCR) | payer MEDICARE, MEDICAID, SELFPAY ==
[2021-07-27 09:12] VITALS: BP 166/78; PULSE 60; TEMP 36.2
--- NOTE | 2021-07-27 13:23 | PCM.WC.HP ---
History of Present Illness Date of Service: 07/27/21 Chief Complaint: Scalp wound History of Wound: Breanne is a pleasant 76-year old female who presents to the wound healing center today (07/27/2021) for evaluation of a scalp wound. Her records indicate an extensive medical history including CHF, CAD, COPD, hypertension, obstructive sleep apnea, and history of tobacco use. 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 On 07/15/2021 she was outside when she fell down a small ravine and hit her head on a rock. She presented to the emergency room for evaluation. Her ER notes indicate that she sustained an 8 cm curvilinear laceration of the scalp with 3 areas of arteriole bleeding. The arterioles were tied off with 5-0 Vicryl sutures. The laceration was closed using approximately fifteen 3-[address] showed no skull fracture or intracranial hemorrhage. Antibiotics were not initiated at that time. On 07/17/2021 she was evaluated by her GI doctor and started on doxycycline 100 mg p.o. twice daily x30 days for suspected bacterial overgrowth of the gut. Her sutures were removed on 07/23/[address] Coy. She has been washing her scalp regularly with her normal shampoo. She has not been applying any dressings to the area. The patient denies fever, chills, general malaise, or poor appetite. The patient has not had increased redness, swelling, or purulent/malodorous drainage from affected area. [facility] Medical History (Updated 07/27/21 @ 13:44 by Rin Meredith [employer], [employer]-C) Abdominal pain Acute severe exacerbation of asthma Allergic rhinitis due to allergen Asthma Atrial fibrillation with rapid ventricular response Benign essential HTN CAD (coronary artery disease) Congestive heart failure Constipation COPD (chronic obstructive pulmonary disease) Depression Failure to thrive in adult Gastroparesis GERD (gastroesophageal reflux disease) Hiatal hernia HTN (hypertension) Hyperlipidemia Insomnia Mixed anxiety depressive disorder Myocardial infarction Obesity (BMI 30.0-34.9) Obstructive sleep apnea Perforated diverticulum of large intestine Peristomal hernia Tobacco abuse Vitamin B12 deficiency Vitamin D deficiency Wound, open, scalp with complication Home Medications albuterol sulfate 2.5 mg INHALATION Q4H PRN PRN 03/19/16 [History Last Taken Unknown] budesonide-formoterol 2 puff INHALATION BID 03/19/16 [History Last Taken Unknown] acetaminophen 650 mg PO Q6H PRN PRN 08/02/16 [History Last Taken Unknown] cholecalciferol (vitamin D3) 1,000 unit PO DAILY 08/02/16 [History Last Taken 08/02/16916] cyanocobalamin (vitamin B-12) 1,000 mcg PO DAILY 08/02/16 [History Last Taken 08/02/16916] ipratropium-albuterol 3 ml INHALATION Q4H PRN PRN 08/02/16 [History Last Taken Unknown] tolterodine 2 mg PO DAILY #14 cap.sa 09/04/16 [Rx Last Taken Unknown] budesonide 0.5 mg INHALATION Q12H PRN PRN 11/13/16 [History Last Taken Unknown] ikzolcat-hdw-skbs fum-folic ac 1 tab PO DAILY 11/13/16 [History Last Taken Unknown] pantoprazole 40 mg PO DAILY 12/24/16 [History Last Taken 12/25/16 05:10] metoclopramide HCl 10 mg tablet 10 mg PO TID PRN 10/13/17 [History Last Taken Unknown] ondansetron HCl 8 mg tablet 8 mg PO TID PRN tab 10/13/17 [History Last Taken Unknown] doxycycline hyclate 100 mg capsule 100 mg PO BID #60 cap 07/17/21 [Rx Last Taken Unknown] plecanatide 3 mg tablet 3 mg PO DAILY #9 tab 07/26/21 [Rx Last Taken Unknown] Allergy/AdvReac Type Severity Reaction Status Date / Time hydromorphone [From Dilaudid] Allergy Unknown Unknown Verified 07/17/21 09:36 levofloxacin [From Levaquin] Allergy Hives Verified 07/17/21 09:36 Penicillins Allergy Hives Verified 07/17/21 09:36 Family History Mother No problems noted. Surgical History S/P cataract surgery S/P colostomy Social History Smoking Status: Current every day smoker tobacco type: cigarettes second hand exposure: No alcohol intake: never substance use type: does not use caffeine: Yes what type of physical activity do you participate in: none frequency: does not exercise seatbelt use: always ROS Constitutional Constitutional: Denies chills, fever(s) or night sweats Eyes Eyes: Denies change in vision or double vision ENT HEENT: Denies lip swelling or tongue swelling Cardiovascular Cardiovascular: Denies chest pain, leg edema or palpitations Respiratory/Chest Respiratory/Chest: Denies cough, shortness of breath at rest or shortness of breath with exertion Gastrointestinal Gastrointestinal: Denies nausea or vomiting Genitourinary Genitourinary: Denies dysuria or hematuria Musculoskeletal Musculoskeletal: Denies muscle weakness Integumentary Integumentary: Reports wounds; Denies rash Neurologic Neurologic: Denies abnormal gait, abnormal speech or focal weakness Endocrine Endocrinology: Denies cold intolerance, heat intolerance, polydipsia or polyuria Hematologic/Lymphatic Hematologic/Lymphatic: Denies easy bleeding or easy bruising Vital Signs Vital Signs Vital Signs: 07/27/21 09:12 Temperature 97.2 F L Temperature Source Temporal Pulse Rate 60 Blood Pressure 166/78 H Blood Pressure Mean 107 Blood Pressure Source Monitor Blood Pressure Position Semi-Fowlers Blood Pressure Location Right Arm Physical Exam Const alert, no apparent distress and healthy appearing General Appearance: cooperative, comfortable and well kempt HEENT Head and Scalp: laceration Laceration Details: Positive for irregular, flap, involves subcutaneous tissue and sensation intact; Negative for actively bleeding and foreign body present; Negative for raccoon eyes Eyes EOMs intact bilaterally Neck supple and no JVD Resp normal respiratory effort, normal air movement and no use of accessory muscles Auscultation: clear to auscultation bilaterally; Negative for crackles, rales, rhonchi or wheezes Cardio regular rate and regular rhythm GI Inspection: ostomy present Auscultation: normoactive bowel sounds Palpation: soft; Negative for tender Extremity normal capillary refill and no clubbing, cyanosis or edema Skin Wounds: wounds noted No malodorous Wound Narrative: Traumatic wound of the scalp with subcutaneous layer exposed. Moderate to large amounts of slough and devitalized tissue present. A flap is present along the right edge of the wound, with undermining present. No tunneling. No exposed bone. Mildly tender to palpation. No periwound erythema. No purulent or malodorous drainage. Neuro moves all extremities and no focal motor deficits Psych mental status grossly normal, cooperative and affect normal Debridement Note Debridement Note Wound debrided: Scalp Laterality: Not Applicable Type of Debridement: Excisional debridement Anesthesia Used: 5% Lidocaine Gel Depth: in the subcutaneous layer Percentage of wound debrided: 100 Instrument Used: 5mm curette Tissue Removed: Slough and devitalized tissue Severity: Fat Layer Exposed Amount of bleeding with debridement: Mild Bleeding Controlled with: Pressure Patient tolerated procedure: Patient tolerated procedure well Post-Debridement Measurements and Additional Note: Post-Debridement Measurements/Treatment - Nurse 1 - General Ulcer Assessment Start: 07/27/21 08:52 Freq: Status: Active Protocol: CECELIA Activity Type Activity Date Activity User E-Sign Co-Sign Detail Recorded Client Recorded Date Recorded By Document 07/27/21 09:12 DINH [id number] 07/27/21 09:20 DINH 07/27/21 09:12 WC - Today's Visit Information Type of service Initial Visit Arrival Mode Ambulatory Patient Identification Verified (Name & Yes ) Vital Signs Temperature (97.8 F-99.1 F) 97.2 F L Temperature Source Temporal Pulse Rate (60-100) 60 Pulse Location Monitor Blood Pressure (90/60-120/80) 166/78 H Blood Pressure Mean 107 Source Monitor Position Semi-Fowlers Blood Pressure Location Right Arm History Since Last Visit- (Skip if this is Patient's initial visit) Have you changed medications since your No last visit? Any new allergies or adverse reactions No Had a fall/change in ADL's that may No increase risk of falls Signs or symptoms of abuse and/or No neglect since last visit Have you been in the hospital since your No last visit? Has dressing in place as prescribed No Has compression in place as prescribed N/A Has offloadiing in place as prescribed N/A Experienced any changes in pain level or No management Left Footwear Regular Shoe Right Footwear Regular Shoe Pain Scale: 0-10 Numeric Is Patient Pain Free? Yes - Nurse 1 - General Ulcer Measurement Start: 07/27/21 08:52 Freq: Status: Active Protocol: Activity Type Activity Date Activity User E-Sign Co-Sign Detail Recorded Client Recorded Date Recorded By Document 07/27/21 09:12 DINH [id number] 07/27/21 09:20 KR 07/27/21 09:12 Wound Center Nurse 1 #1 scalp -Current Size (cm) - Length 3.4 -Current Size (cm) - Width 1 -Current Size (cm) - Depth 0.2 -Total Square Cm 3.4 -Exudate Amt Small -Exudate Type Serosanguineous -Wound Margin Distinct, Outline Attached -Granulation Amt Small (1-33%) -Granulation Quality Red -Texture (Alize-wound Skin Appearance) Assessed, Scarring -Moisture (Alize-wound Skin Appearance) No Abnormality, Assessed -Color (Alize-wound Skin Appearance) No Abnormality, Assessed -Temperature (Alize-wound Skin No Abnormality Appearance) (Pt Warm) -Tenderness on Palpation (Alize-wound No Skin Appearance) -Ulcer Cleansing Rinsed/ Irrigated with Saline -Foul Odor after Cleansing No WC - Nurse 3 - General Ulcer D/C NN Start: 07/27/21 08:52 Freq: Status: Active Protocol: Activity Type Activity Date Activity User E-Sign Co-Sign Detail Recorded Client Recorded Date Recorded By Document 07/27/21 12:35 KO [id number] 07/27/21 12:36 KO 07/27/21 12:35 Wound Care Nurse 3 -Primary Dressing Applied Aquacel AG 4x4 -Primary Dressing Covered/Secured with Dry Gauze -Aquacel AG 4x4 1 Pain Scale: 0-10 Numeric Is Patient Pain Free? Yes WC - Visit Discharge Discharge Condition Stable Ambulatory Status Ambulatory Transportation Private Auto Charges/Coding Visit Charges Office Visits / Consults: [id number] OV L4 Est Procedures Integumentary 111xxx-113xx: 70771 Sharyn subq tissue 20 sq cm/< Assessment/Plan Assessment/Plan (1) Wound, open, scalp with complication: CODE(S): S01.00XA - Unspecified open wound of scalp, initial encounter QUALIFIERS: Encounter type: subsequent encounter Qualified Code(s): S01.00XD - Unspecified open wound of scalp, subsequent encounter PLAN: Debridement performed today in clinic as annotated above. Aquacel Ag applied. Covered with gauze and a stockinette cap. At home wound-care instructions: Change dressing once daily or more frequently as needed due to contamination. Wash hair as needed with baby shampoo. Avoid using regular shampoos, as these may containchemicals that may aggravate the wound. Wash the scalp wound daily with antibacterial soap and water, rinse and dry thoroughly before each dressing change. Diet: Patient encouraged to increase protein intake while taking caution to avoid high carbohydrate and/or sugar intake. Labs/cultures/imaging: Cultures ordered and collected today. Routine baseline lab work ordered. Discussed patient's case with plastic surgery [employer], Lizzeth Vasques, following the patient's appointment. She will discuss with Dr. Mckeon and see if he is willing to evaluate the patient. Given the patient's flap/undermining of the scalp wound, it is unclear at this time if she will need to undergo surgical excision or if the undermining will close in. Follow-up: Return to clinic in 1 week for re-evaluation. Return sooner or report to the emergency room should symptoms worsen, or new symptoms arise. Note: [employer] speech recognition dancing teacher software was used to create portions of this document. Sound-alike and misspelled words, as well as other dancing teacher errors may be contained in the documentation.
[2021-08-03 09:59] VITALS: BP 147/84; PULSE 70; TEMP 36.2
--- NOTE | 2021-08-03 13:31 | PCM.WC.PN ---
History of Present Illness Date of Service: 08/03/21 Chief Complaint: Scalp wound History of Wound: Breanne is a pleasant 76-year old female who presents to the wound healing center today (07/27/2021) for evaluation of a scalp wound. Her records indicate an extensive medical history including CHF, CAD, COPD, hypertension, obstructive sleep apnea, and history of tobacco use. 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 On 07/15/2021 she was outside when she fell down a small ravine and hit her head on a rock. She presented to the emergency room for evaluation. Her ER notes indicate that she sustained an 8 cm curvilinear laceration of the scalp with 3 areas of arteriole bleeding. The arterioles were tied off with 5-0 Vicryl sutures. The laceration was closed using approximately fifteen 3-[address] showed no skull fracture or intracranial hemorrhage. Antibiotics were not initiated at that time. On 07/17/2021 she was evaluated by her GI doctor and started on doxycycline 100 mg p.o. twice daily x30 days for suspected bacterial overgrowth of the gut. Her sutures were removed on 07/23/[address] Coy. She has been washing her scalp regularly with her normal shampoo. She has not been applying any dressings to the area. The patient denies fever, chills, general malaise, or poor appetite. The patient has not had increased redness, swelling, or purulent/malodorous drainage from affected area. Progress of Wound: The patient's wound has improved in size and appearance today. The undermining has filled in modestly. She has had difficulty with her dressings being adherent to the scalp. The patient denies fever, chills, general malaise, or poor appetite. The patient has not had increased redness, swelling, or purulent/malodorous drainage from affected area. A single remaining suture was removed from the patient's scalp today. The patient's wound culture from 07/27/2021 showed the following: Rare Staph capitis, Staphylococcus epidermidis, and positive anaerobic bacteria. She was started on metronidazole 500 mg twice daily x7 days. Dr. Mckeon consulted on the patient today. He does not recommend surgical intervention at this time, and I agree with this assessment. He does however recommend initiation of Bactrim based on patient's wound cultures. He states he will send this antibiotic in for the patient. Objective Data Objective Data Vital Signs: Vital Signs Temp Pulse BP 97.2 F L 70 147/84 H 08/03/21 09:59 08/03/21 09:59 08/03/21 09:59 Lab / Micro Data Micro: Microbiology 07/27/21 09:55 Wound Abcess - Scalp Gram Stain - Final 07/27/21 09:55 Wound Abcess - Scalp Wound Culture - Final Staphylococcus capitis Staphylococcus epidermidis 07/27/21 09:55 Wound Abcess - Scalp Anaerobic Culture - Final Anaerobic cocci Charges/Coding Procedures Integumentary 111xxx-113xx: [id number] Sharyn subq tissue 20 sq cm/< Physical Exam Const alert, no apparent distress and healthy appearing General Appearance: cooperative, comfortable and well kempt HEENT Head and Scalp: laceration Laceration Details: Positive for irregular, involves subcutaneous tissue and sensation intact; Negative for actively bleeding and foreign body present; Negative for raccoon eyes Eyes EOMs intact bilaterally Neck supple and no JVD Resp normal respiratory effort Cardio regular rate and regular rhythm GI Inspection: ostomy present Extremity normal capillary refill and no clubbing, cyanosis or edema Skin Wounds: wounds noted No malodorous Wound Narrative: Traumatic wound of the scalp with subcutaneous layer exposed. Moderate to large amounts of slough and devitalized tissue present. Good granulation tissue is present. Undermining has improved, though there are 2 areas of deeper undermining along the right wound edge. No exposed bone. Mildly tender to palpation. No periwound erythema. No purulent or malodorous drainage. No abscess or notable fluid accumulation. No clinical signs of infection. A single suture was visible and was removed from the scalp today. Neuro moves all extremities and no focal motor deficits Psych mental status grossly normal, cooperative and affect normal Debridement Note Debridement Note Wound debrided: Scalp wound Laterality: Right Type of Debridement: Excisional debridement Anesthesia Used: 5% Lidocaine Gel Depth: in the subcutaneous layer Percentage of wound debrided: 100 Instrument Used: 3mm curette, #15 blade, Forceps and - (1 mm curette) Tissue Removed: Slough and devitalized tissue Severity: Fat Layer Exposed Amount of bleeding with debridement: Mild Bleeding Controlled with: Pressure Patient tolerated procedure: Patient tolerated procedure well Post-Debridement Measurements and Additional Note: Post-Debridement Measurements/Treatment - Nurse 1 - General Ulcer Assessment Start: 07/27/21 08:52 Freq: Status: Active Protocol: CECELIA Activity Type Activity Date Activity User E-Sign Co-Sign Detail Recorded Client Recorded Date Recorded By Document 07/27/21 09:12 DINH [id number] 07/27/21 09:20 KR Document 08/03/21 09:59 KO Desktop 08/03/21 10:05 AK 07/27/21 08/03/21 09:12 09:59 WC - Today's Visit Information Type of service Initial Visit Follow-up Visit (Physician/DIAMOND CUTTER ) Arrival Mode Ambulatory Ambulatory Patient Identification Verified (Name & Yes Yes ) Patient Requires Transmission-Based No Precautions Safety Precautions NA Vital Signs Temperature (97.8 F-99.1 F) 97.2 F L 97.2 F L Temperature Source Temporal Temporal Pulse Rate (60-100) 60 70 Pulse Location Monitor Monitor Blood Pressure (90/60-120/80) 166/78 H 147/84 H Blood Pressure Mean (mm Hg) 107 105 Source Monitor Monitor Position Semi-Fowlers Blood Pressure Location Right Arm History Since Last Visit- (Skip if this is Patient's initial visit) Have you changed medications since your No No last visit? Any new allergies or adverse reactions No No Had a fall/change in ADL's that may No No increase risk of falls Signs or symptoms of abuse and/or No No neglect since last visit Have you been in the hospital since your No No last visit? Has dressing in place as prescribed No Yes Has compression in place as prescribed N/A N/A Has offloadiing in place as prescribed N/A N/A Experienced any changes in pain level or No No management Left Footwear Regular Shoe Regular Shoe Right Footwear Regular Shoe Regular Shoe Pain Scale: 0-10 Numeric Is Patient Pain Free? Yes BO - Nurse 1 - General Ulcer Measurement Start: 07/27/21 08:52 Freq: Status: Active Protocol: Activity Type Activity Date Activity User E-Sign Co-Sign Detail Recorded Client Recorded Date Recorded By Document 07/27/21 09:12 DINH [id number] 07/27/21 09:20 KR Document 08/03/21 09:59 KO [email or web address] 08/03/21 10:05 AK 07/27/21 08/03/21 09:12 09:59 Wound Center Nurse 1 #1 scalp -Combined with other wound No -Current Size (cm) - Length 3.4 1.7 -Current Size (cm) - Width 1 1 -Current Size (cm) - Depth 0.2 0.1 -Total Square Cm 3.4 1.7 -Photo Taken No -Tunneling No -Undermining/Tunneling No -Circular Undermining No -Change in Wound Grade/Stage No -Exudate Amt Small Medium -Exudate Type Serosanguineous Serosanguineous -Wound Margin Distinct, Distinct, Outline Outline Attached Attached -Granulation Amt Small (1-33%) Medium (34-66%) -Granulation Quality Red [place] -Slough/Fibrin Yes -Necrosis Amt Medium (34-66%) -Necrotic Tissue Type Adherent Slough -Structure Exposed N/A -Texture (Alize-wound Skin Appearance) Assessed, No Abnormality, Scarring Assessed -Moisture (Alize-wound Skin Appearance) No Abnormality, No Abnormality, Assessed Assessed -Color (Alize-wound Skin Appearance) No Abnormality, No Abnormality, Assessed Assessed -Temperature (Alize-wound Skin No Abnormality No Abnormality Appearance) (Pt Warm) (Pt Warm) -Tenderness on Palpation (Alize-wound No Yes Skin Appearance) -Ulcer Cleansing Rinsed/ Rinsed/ Irrigated with Irrigated with Saline Saline -Foul Odor after Cleansing No No -Anesthetic Used 5% Lidocaine Gel WC - Nurse 2 - General Ulcer CM Notes Start: 07/27/21 08:52 Freq: Status: Active Protocol: Activity Type Activity Date Activity User E-Sign Co-Sign Detail Recorded Client Recorded Date Recorded By Document 07/27/21 13:21 PL [id number] 07/27/21 13:26 PL Document 08/03/21 13:00 PL [id number] 08/03/21 13:02 PL 07/27/21 08/03/21 13:21 13:00 Wound Center Nurse 2 -Time 09:51 10:12 -Correct Patient Yes Yes -Correct Side, Site, Position Yes Yes -Correct Procedure Yes Yes -Procedure Performed Yes Yes -Type of Procedure Debridement Debridement -Clinical Debridement Subcutaneous Subcutaneous -Tissue Removed Subcutaneous Subcutaneous -Post Debridement (cm) - Length 4.0 3.5 -Post Debridement (cm) - Width 1.8 1.5 -Post Debridement (cm) - Depth 0.1 0.1 -Total Square (Post) (cm) 7.20 5.25 -Area of Debridement (cm) - Length 4.0 3.5 -Area of Debridement (cm) - Width 1.8 1.5 -Total Square (Area) (cm) 7.20 5.25 -Tunneling No No -Undermining/Tunneling Yes Yes -Undermining/Tunneling Starts (O'clock 6 6 ) -Undermining/Tunneling Ends (O'clock) 12 12 -Maximum Distance (cm) 1.5 1.0 -Circular Undermining No No -Wound/Ulcer Outcome Not Healed Not Healed -Ulcer Cleansing Rinsed/ Rinsed/ Irrigated with Irrigated with Saline Saline -Foul Odor after Cleansing No No -Bioengineered Tissue No No -Bleeding Controlled with Pressure Pressure -Treatment Response Procedure Procedure Tolerated Well Tolerated Well -Debridement - Subq, 1st 20sq cm Yes Yes - Nurse 3 - General Ulcer D/C NN Start: 07/27/21 08:52 Freq: Status: Active Protocol: Activity Type Activity Date Activity User E-Sign Co-Sign Detail Recorded Client Recorded Date Recorded By Document 07/27/21 12:35 AK [id number] 07/27/21 12:36 AK Document 08/03/21 11:00 ML [id number] 08/03/21 11:01 ML 07/27/21 08/03/21 12:35 11:00 Wound Care Nurse 3 #1 scalp -Ulcer Cleansing Rinsed/ Irrigated with Saline -Foul Odor after Cleansing No -Primary Dressing Applied Aquacel AG 4x4 Aquacel AG 4x4 -Primary Dressing Covered/Secured with Dry Gauze Dry Gauze -Aquacel AG 4x4 1 1 Pain Scale: 0-10 Numeric Is Patient Pain Free? Yes WC - Visit Discharge Discharge Condition Stable Stable Ambulatory Status Ambulatory Ambulatory Transportation Private Auto Medication Reconcilliation completed & No provided to patient/care provider Clinical Summary of Care Provided Yes Assessment/Plan Assessment/Plan (1) Wound, open, scalp with complication: CODE(S): S01.00XA - Unspecified open wound of scalp, initial encounter QUALIFIERS: Encounter type: subsequent encounter Qualified Code(s): S01.00XD - Unspecified open wound of scalp, subsequent encounter PLAN: Debridement performed today in clinic as annotated above. Aquacel Ag applied, wicked into undermining. Covered with gauze and a stockinette cap. At home wound-care instructions: Change dressing once daily or more frequently as needed due to contamination. Wash hair as needed with baby shampoo. Avoid using regular shampoos, as these may contain chemicals that may aggravate the wound. Wash the scalp wound daily with antibacterial soap and water, rinse and dry thoroughly before each dressing change. Diet: Patient encouraged to increase protein intake while taking caution to avoid high carbohydrate and/or sugar intake. Also encouraged to intake probiotics while on antibiotics. Labs/cultures/imaging: The patient's wound culture from 07/27/2021 showed the following: Rare Staph capitis, Staphylococcus epidermidis, and positive anaerobic bacteria. She was started on metronidazole 500 mg twice daily x7 days. Dr. Mckeon consulted on the patient today. He does not recommend surgical intervention at this time, and I agree with this assessment. He does however recommend initiation of Bactrim based on patient's wound cultures. He states he will send this antibiotic in for the patient. Follow-up: Return to clinic in 1 week for re-evaluation. Return sooner or report to the emergency room should symptoms worsen, or new symptoms arise. Note: [employer] speech recognition floorleader software was used to create portions of this document. Sound-alike and misspelled words, as well as other floorleader errors may be contained in the documentation.
--- NOTE | 2021-08-03 22:21 | PCM.WC.HP ---
History of Present Illness Date of Service: 08/03/21 Chief Complaint: WOUND CENTER CONSULT POST-TRAUMATIC WOUND RIGHT TOP OF SCALP AT PARIETAL AREA. REFERRING PHYSICIAN: Rin Meredith NP. AUTOMOTIVE FLEET SUPERVISOR: Dr. Mckeon. History of Wound: rBeanne is a pleasant 76-year old female who presented to the wound healing center last week (07/27/2021) for evaluation of a scalp wound. Her records indicate an extensive medical history including CHF, CAD, COPD, hypertension, obstructive sleep apnea, and history of tobacco use. 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 On 07/15/2021 she was outside when she fell down a small ravine and hit her head on a rock. She presented to the emergency room for evaluation. Her ER notes indicate that she sustained an 8 cm curvilinear laceration of the scalp with 3 areas of arteriole bleeding. The arterioles were tied off with 5-0 Vicryl sutures. The laceration was closed using approximately fifteen 3-[address] showed no skull fracture or intracranial hemorrhage. Antibiotics were not initiated at that time. On 07/17/2021 she was evaluated by her GI doctor and started on doxycycline 100 mg p.o. twice daily x30 days for suspected bacterial overgrowth of the gut. Her sutures were removed on 07/23/[address] Coy. THE SCALP WOUND SUBSEQUENTLY OPENED UP. SILVER DRESSING CHANGES WERE STARTED. A WOUND CULTURE WAS DONE ON 07/27/21. IT SHOWED STAPHYLOCOCCUS CAPITIS, STAPHYLOCOCCUS EPIDERMIDIS, AND ANAEROBIC COCCI. SHE WAS STARTED ON FLAGYL. The patient denies fever, chills, general malaise, or poor appetite. The patient has not had increased redness, swelling, or purulent/malodorous drainage from affected area. Progress of Wound: IMPROVED. [facility] Medical History (Updated 08/10/21 @ 22:[address] Westley Mckeon MD) Abdominal pain Acute severe exacerbation of asthma Allergic rhinitis due to allergen Asthma Atrial fibrillation with rapid ventricular response Benign essential HTN CAD (coronary artery disease) Congestive heart failure Constipation COPD (chronic obstructive pulmonary disease) Depression Failure to thrive in adult Frequent falls Gastroparesis GERD (gastroesophageal reflux disease) Hiatal hernia HTN (hypertension) Hyperlipidemia Insomnia Mixed anxiety depressive disorder Myocardial infarction Obesity (BMI 30.0-34.9) Obstructive sleep apnea Perforated diverticulum of large intestine Peristomal hernia Smoker Tobacco abuse Vitamin B12 deficiency Vitamin D deficiency Wound, open, scalp with complication Home Medications albuterol sulfate 2.5 mg INHALATION Q4H PRN PRN 03/19/16 [History Last Taken Unknown] budesonide-formoterol 2 puff INHALATION BID 03/19/16 [History Last Taken Unknown] acetaminophen 650 mg PO Q6H PRN PRN 08/02/16 [History Last Taken Unknown] cholecalciferol (vitamin D3) 1,000 unit PO DAILY 08/02/16 [History Last Taken 08/02/16916] cyanocobalamin (vitamin B-12) 1,000 mcg PO DAILY 08/02/16 [History Last Taken 08/02/16916] ipratropium-albuterol 3 ml INHALATION Q4H PRN PRN 08/02/16 [History Last Taken Unknown] tolterodine 2 mg PO DAILY #14 cap.sa 09/04/16 [Rx Last Taken Unknown] budesonide 0.5 mg INHALATION Q12H PRN PRN 11/13/16 [History Last Taken Unknown] aprspytf-rph-ktqo fum-folic ac 1 tab PO DAILY 11/13/16 [History Last Taken Unknown] pantoprazole 40 mg PO DAILY 12/24/16 [History Last Taken 12/25/16 05:10] metoclopramide HCl 10 mg tablet 10 mg PO TID PRN 10/13/17 [History Last Taken Unknown] ondansetron HCl 8 mg tablet 8 mg PO TID PRN tab 10/13/17 [History Last Taken Unknown] doxycycline hyclate 100 mg capsule 100 mg PO BID #60 cap 07/17/21 [Rx Last Taken Unknown] sulfamethoxazole 800 mg-trimethoprim 160 mg tablet 1 tab PO Q12H 14 Days #28 tab 08/03/21 [Rx Last Taken Unknown] linaclotide 145 mcg capsule 145 mcg PO QAM #30 cap 08/10/21 [Rx Last Taken Unknown] Allergy/AdvReac Type Severity Reaction Status Date / Time hydromorphone [From Dilaudid] Allergy Unknown Unknown Verified 07/17/21 09:36 levofloxacin [From Levaquin] Allergy Hives Verified 07/17/21 09:36 Penicillins Allergy Hives Verified 07/17/21 09:36 Family History Mother No problems noted. Surgical History S/P cataract surgery S/P colostomy Social History Smoking Status: Current every day smoker tobacco type: cigarettes second hand exposure: No alcohol intake: never substance use type: does not use caffeine: Yes what type of physical activity do you participate in: none frequency: does not exercise seatbelt use: always ROS ROS Narrative General - Denies fever, fatigue, and weight loss. Eyes - Denies cataracts and glaucoma. ENT - Denies nasal congestion and sore throat. Endocrine - Denies excessive thirst and urination. Skin - Denies suspicious lesions and skin cancer. HAS OPEN WOUND RIGHT TOP OF SCALP IN PARIETAL AREA. Musculoskeletal - Denies joint pain, joint stiffness, weakness of muscles and joints, back pain, and arthritis. Neuro - Denies headaches. Cardiovascular - Denies chest pain, fatigue, and shortness of breath with exertion. Psych - Denies anxiety and depression. Respiratory - Denies chronic cough and shortness of breath. PATIENT IS A SMOKER. Gastrointestinal - Denies nausea, vomiting, diarrhea, and constipation. HAS COLOSTOMY. Hematologic - Denies abnormal bruising and bleeding. Genitourinary - Denies hematuria and urinary frequency. Physical Exam Narrative General - Alert and Oriented HEENT - PERRL. EOMI. Throat is clear. ON THE RIGHT TOP OF SCALP AT PARIETAL AREA IS A TRAUMATIC WOUND THAT MEASURES 3.5 X 1.5 X 0.1 CM. GOOD GRANULATION TISSUE SEEN. NO EXPOSED BONE. SOME UNDERMINING REPORTED POSTERIORLY WHICH APPEARS TO HAVE BEEN RESOLVED AT THIS TIME. Neck - Supple and nontender. No cervical adenopathy. Lungs - Clear to auscultation. Heart - Regular rate and rhythm. Abdomen - Soft and nondistended. Colostomy functioning. Extremities - FROM. No axillary adenopathy. Radial pulses are palpable. Neuro - CN II-XII grossly intact. Psych - Normal mood and affect. Const General Appearance: comfortable Debridement Note Debridement Note Wound debrided: RIGHT TOP OF SCALP AT PARIETAL AREA. Laterality: Right Wound Grade/Stage: 2. No debridement was completed: No debridement was completed today (IT WAS DONE EARLIER IN THE DAY.) Post-Debridement Measurements and Additional Note: Post-Debridement Measurements/Treatment - Nurse 1 - General Ulcer Assessment Start: 07/27/21 08:52 Freq: Status: Active Protocol: CECELIA Activity Type Activity Date Activity User E-Sign Co-Sign Detail Recorded Client Recorded Date Recorded By Document 07/27/21 09:12 KR [id number] 07/27/21 09:20 KR Document 08/03/21 09:59 AK Desktop 08/03/21 10:05 AK 07/27/21 08/03/21 09:12 09:59 WC - Today's Visit Information Type of service Initial Visit Follow-up Visit (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 Any new allergies or adverse reactions No No Had a fall/change in ADL's that may No No increase risk of falls Signs or symptoms of abuse and/or No No neglect since last visit Have you been in the hospital since your No No last visit? Has dressing in place as prescribed No Yes Has compression in place as prescribed N/A N/A Has offloadiing in place as prescribed N/A N/A Experienced any changes in pain level or No No management Left Footwear Regular Shoe Regular Shoe Right Footwear Regular Shoe Regular Shoe Pain Scale: 0-10 Numeric Is Patient Pain Free? Yes - Nurse 1 - General Ulcer Measurement Start: 07/27/21 08:52 Freq: Status: Active Protocol: Activity Type Activity Date Activity User E-Sign Co-Sign Detail Recorded Client Recorded Date Recorded By Document 07/27/21 09:12 DINH [id number] 07/27/21 09:20 KR Document 08/03/21 09:59 AK Desktop 08/03/21 10:05 AK 07/27/21 08/03/21 09:12 09:59 Wound Center Nurse 1 #1 scalp -Combined with other wound No -Current Size (cm) - Length 3.4 1.7 -Current Size (cm) - Width 1 1 -Current Size (cm) - Depth 0.2 0.1 -Total Square Cm 3.4 1.7 -Photo Taken No -Tunneling No -Undermining/Tunneling No -Circular Undermining No -Change in Wound Grade/Stage No -Exudate Amt Small Medium -Exudate Type Serosanguineous Serosanguineous -Wound Margin Distinct, Distinct, Outline Outline Attached Attached -Granulation Amt Small (1-33%) Medium (34-66%) -Granulation Quality [place] -Slough/Fibrin Yes -Necrosis Amt Medium (34-66%) -Necrotic Tissue Type Adherent Slough -Structure Exposed N/A -Texture (Alize-wound Skin Appearance) Assessed, No Abnormality, Scarring Assessed -Moisture (Alize-wound Skin Appearance) No Abnormality, No Abnormality, Assessed Assessed -Color (Alize-wound Skin Appearance) No Abnormality, No Abnormality, Assessed Assessed -Temperature (Alize-wound Skin No Abnormality No Abnormality Appearance) (Pt Warm) (Pt Warm) -Tenderness on Palpation (Alize-wound No Yes Skin Appearance) -Ulcer Cleansing Rinsed/ Rinsed/ Irrigated with Irrigated with Saline Saline -Foul Odor after Cleansing No No -Anesthetic Used 5% Lidocaine Gel WC - Nurse 2 - General Ulcer CM Notes Start: 07/27/21 08:52 Freq: Status: Active Protocol: Activity Type Activity Date Activity User E-Sign Co-Sign Detail Recorded Client Recorded Date Recorded By Document 07/27/21 13:21 PL [id number] 07/27/21 13:26 PL Document 08/03/21 13:00 PL [id number] 08/03/21 13:02 PL 07/27/21 08/03/21 13:21 13:00 Wound Center Nurse 2 -Time 09:51 10:12 -Correct Patient Yes Yes -Correct Side, Site, Position Yes Yes -Correct Procedure Yes Yes -Procedure Performed Yes Yes -Type of Procedure Debridement Debridement -Clinical Debridement Subcutaneous Subcutaneous -Tissue Removed Subcutaneous Subcutaneous -Post Debridement (cm) - Length 4.0 3.5 -Post Debridement (cm) - Width 1.8 1.5 -Post Debridement (cm) - Depth 0.1 0.1 -Total Square (Post) (cm) 7.20 5.25 -Area of Debridement (cm) - Length 4.0 3.5 -Area of Debridement (cm) - Width 1.8 1.5 -Total Square (Area) (cm) 7.20 5.25 -Tunneling No No -Undermining/Tunneling Yes Yes -Undermining/Tunneling Starts (O'clock 6 6 ) -Undermining/Tunneling Ends (O'clock) 12 12 -Maximum Distance (cm) 1.5 1.0 -Circular Undermining No No -Wound/Ulcer Outcome Not Healed Not Healed -Ulcer Cleansing Rinsed/ Rinsed/ Irrigated with Irrigated with Saline Saline -Foul Odor after Cleansing No No -Bioengineered Tissue No No -Bleeding Controlled with Pressure Pressure -Treatment Response Procedure Procedure Tolerated Well Tolerated Well -Debridement - Subq, 1st 20sq cm Yes Yes - Nurse 3 - General Ulcer D/C NN Start: 07/27/21 08:52 Freq: Status: Active Protocol: Activity Type Activity Date Activity User E-Sign Co-Sign Detail Recorded Client Recorded Date Recorded By Document 07/27/21 12:35 AK [id number] 07/27/21 12:36 AK Document 08/03/21 11:00 ML [id number] 08/03/21 11:01 ML 07/27/21 08/03/21 12:35 11:00 Wound Care Nurse 3 #1 scalp -Ulcer Cleansing Rinsed/ Irrigated with Saline -Foul Odor after Cleansing No -Primary Dressing Applied Aquacel AG 4x4 Aquacel AG 4x4 -Primary Dressing Covered/Secured with Dry Gauze Dry Gauze -Aquacel AG 4x4 1 1 Pain Scale: 0-10 Numeric Is Patient Pain Free? Yes WC - Visit Discharge Discharge Condition Stable Stable Ambulatory Status Ambulatory Ambulatory Transportation Private Auto Medication Reconcilliation completed & No provided to patient/care provider Clinical Summary of Care Provided Yes Lab / Micro Data Attestation: I reviewed the patient's lab results. Charges/Coding Visit Charges Inpatient E&M: 15514 Init Hosp L2 (ICD-10 - S01.00xA, F17.200, R29.6) Assessment/Plan Assessment/Plan (1) Wound, open, scalp with complication: CODE(S): S01.00XA - Unspecified open wound of scalp, initial encounter QUALIFIERS: Encounter type: subsequent encounter Qualified Code(s): S01.00XD - Unspecified open wound of scalp, subsequent encounter (2) Smoker: CODE(S): F17.200 - Nicotine dependence, unspecified, uncomplicated (3) Frequent falls: CODE(S): R29.6 - Repeated falls PLAN: MEDICAL RECORDS REVIEWED. WOUND CULTURE REVIEWED. SCALP WOUND IS STABLE AND SHOWS HEALING WITH GOOD GRANULATION TISSUE. THE UNDERMINED AREA APPEARS TO HAVE HEALED. CONTINUE SILVER DRESSING CHANGES DAILY. THE WOUND CULTURE FROM 07/27/21 SHOWED STAPHYLOCOCCUS CAPITIS, STAPHYLOCOCCUS EPIDERMIDIS, AND ANAEROBIC COCCI. SHE WAS STARTED ON FLAGYL. EVEN THOUGH THE STAPHYLOCOCCUS ORGANISMS DON'T APPEAR TO BE INVASIVE AT THIS TIME, THEY ARE STILL PRESENT TO CAUSE CLUTTER AND DECREASED HEALING. SO WILL ADD BACTRIM WHICH COVERS BOTH STAPHYLOCOCCUS ORGANISMS FOR 2 WEEKS WITH A REFILL. THERE IS NO URGENCY TO GO TO THE OPERATING ROOM AT THIS TIME. IF INFECTION DEVELOPS ANOTHER OPERATIVE DEBRIDEMENT CAN ALWAYS BE DONE. THERE IS NO REASON TO TRY AND CLOSE THE SCALP WOUND DEFECT AT THIS TIME. THE TISSUE IS SWOLLEN. I WOULD HAVE TO CREATE VERY LARGE SCALP FLAPS TO CLOSE THIS SMALL DEFECT SINCE THE SCALP TISSUE IS NOT VERY ELASTIC AND DOESN'T STRETCH EASILY INTO WOUND DEFECTS. A DRAIN WOULD BE NECESSARY AND WITH THE AMOUNT OF DISSECTION NECESSARY, THE PATIENT WOULD BE AT RISK FOR POSTOPERATIVE BLEEDING IN THE WOUND. REASSURED THE PATIENT THAT THE SCALP WOUND WILL HEAL ON ITS OWN WITH GOOD LOCAL WOUND CARE AND ANTIBIOTICS NEEDED. THIS MAY TAKE 2-3 MONTHS. IF THE PATIENT GETS TIRED OF THE WOUND CARE IN THE MEANTIME, CAN THEN MOVE UP THE TIMETABLE FOR FURTHER SURGERY WITH OPERATIVE DEBRIDEMENT AND SKIN GRAFTING. MAY GET THE SKIN FROM THE NECK OR THE ABDOMINAL WALL IF THE AMOUNT OF TISSUE NEEDED FOR THE GRAFT IS TOO MUCH FOR THE NECK. THE NECK IS A BETTER COLOR MATCH THAN THE ABDOMINAL WALL. OTHER OPTIONS AT THE WOUND CENTER WOULD BE THE PLACEMENT OF ADVANCED SKIN SUBSTITUTE GRAFTS (I.E., EPIFIX WHICH IS A PLACENTAL CONNECTIVE TISSUE GRAFT) TO HELP WITH THE HEALING PROCESS. WOULD OBTAIN INSURANCE APPROVAL FOR THIS GRAFT PLACEMENT. USUALLY THE APPROVAL IS FOR 10 APPLICATIONS OVER 12 WEEKS. IN THE MEANTIME, FOLLOWUP WITH WOUND CENTER PHYSICIAN WEEKLY TO CONTINUE TO MONITOR THE HEALING OF THIS TRAUMATIC SCALP WOUND. Encouraged patient to stop smoking as it may have deleterious effects on wound healing.
[2021-08-24 10:42] VITALS: BP 117/59; PULSE 100; RESP 16; TEMP 36.1
--- NOTE | 2021-08-24 14:04 | PN.PCM_ITS ---
History of Present Illness Date of Service: 08/03/21 Chief Complaint: Scalp wound History of Wound: Breanne is a pleasant 76-year old female who presents to the wound healing center today (07/27/2021) for evaluation of a scalp wound. Her records indicate an extensive medical history including CHF, CAD, COPD, hypertension, obstructive sleep apnea, and history of tobacco use. 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 On 07/15/2021 she was outside when she fell down a small ravine and hit her head on a rock. She presented to the emergency room for evaluation. Her ER notes indicate that she sustained an 8 cm curvilinear laceration of the scalp with 3 areas of arteriole bleeding. The arterioles were tied off with 5-0 Vicryl sutures. The laceration was closed using approximately fifteen 3-[address] showed no skull fracture or intracranial hemorrhage. Antibiotics were not initiated at that time. On 07/17/2021 she was evaluated by her GI doctor and started on doxycycline 100 mg p.o. twice daily x30 days for suspected bacterial overgrowth of the gut. Her sutures were removed on 07/23/[address] Coy. She has been washing her scalp regularly with her normal shampoo. She has not been applying any dressings to the area. The patient denies fever, chills, general malaise, or poor appetite. The patient has not had increased redness, swelling, or purulent/malodorous drainage from affected area. Progress of Wound: The patient's wound has improved significantly in size and appearance. The undermining has resolved. The patient denies fever, chills, general malaise, or poor appetite. The patient has not had increased redness, swelling, or purulent/malodorous drainage from affected area. The patient's wound culture from 07/27/2021 showed the following: Rare Staph capitis, Staphylococcus epidermidis, and positive anaerobic bacteria. She was started on metronidazole 500 mg twice daily x7 days. Dr. Mckeon started the patient on Bactrim, and she states this is is well tolerated at this time. Objective Data Objective Data Vital Signs: Vital Signs Temp Pulse Resp BP 96.9 F L 100 16 117/59 L 08/24/21 10:42 08/24/21 10:42 08/24/21 10:42 08/24/21 10:42 Lab / Micro Data Micro: Microbiology 07/27/21 09:55 Wound Abcess - Scalp Gram Stain - Final 07/27/21 09:55 Wound Abcess - Scalp Wound Culture - Final Staphylococcus capitis Staphylococcus epidermidis 07/27/21 09:55 Wound Abcess - Scalp Anaerobic Culture - Final Anaerobic cocci Physical Exam Const alert, no apparent distress and healthy appearing General Appearance: cooperative, comfortable and well kempt HEENT Head and Scalp: laceration Laceration Details: Positive for irregular, involves subcutaneous tissue and sensation intact; Negative for actively bleeding and foreign body present; Negative for raccoon eyes Eyes EOMs intact bilaterally Neck supple and no JVD Resp normal respiratory effort Cardio regular rate and regular rhythm Extremity normal capillary refill Skin Wounds: wounds noted No malodorous Wound Narrative: Traumatic wound of the scalp with subcutaneous layer exposed. Small amounts of slough and devitalized tissue present. Good granulation tissue is present. Undermining has resolved. No exposed bone. Nontender to palpation. No periwound erythema. No purulent or malodorous drainage. No abscess or notable fluid accumulation. No clinical signs of infection. Neuro moves all extremities and no focal motor deficits Psych mental status grossly normal, cooperative and affect normal Debridement Note Debridement Note Wound debrided: Scalp Type of Debridement: Excisional debridement Anesthesia Used: 5% Lidocaine Gel Depth: in the subcutaneous layer Percentage of wound debrided: 100 Instrument Used: 3mm curette Tissue Removed: Slough and devitalized tissue Severity: Fat Layer Exposed Amount of bleeding with debridement: Mild Bleeding Controlled with: Pressure Patient tolerated procedure: Patient tolerated procedure well Post-Debridement Measurements and Additional Note: Post-Debridement Measurements/Treatment WC - Nurse 1 - General Ulcer Assessment Start: 07/27/21 08:52 Freq: Status: Active Protocol: CECELIA Activity Type Activity Date Activity User E-Sign Co-Sign Detail Recorded Client Recorded Date Recorded By Document 07/27/21 09:12 KR [id number] 07/27/21 09:20 KR Document 08/03/21 09:59 AK Desktop 08/03/21 10:05 AK Document 08/24/21 10:42 ML [id number] 08/24/21 10:44 ML 07/27/21 08/03/21 08/24/21 09:12 09:59 10:42 - Today's Visit Information Type of service Initial Visit Follow-up Visit Follow-up Visit (Physician/WASTE COLLECTION DRIVER (Physician/WASTE COLLECTION DRIVER ) ) Arrival Mode Ambulatory Ambulatory Ambulatory Patient Identification Verified (Name & Yes Yes No ) Patient Requires Transmission-Based No No Precautions Safety Precautions NA NA Vital Signs Temperature (97.8 F-99.1 F) 97.2 F L 97.2 F L 96.9 F L Temperature Source Temporal Temporal Temporal Pulse Rate (60-100) 60 70 100 Pulse Location Monitor Monitor Monitor Respiratory Rate (12-18) 16 Respiratory rate source Observation Blood Pressure (90/60-120/80) 166/78 H 147/84 H 117/59 L Blood Pressure Mean (mm Hg) 107 105 78 Source Monitor Monitor Monitor Position Semi-Fowlers Sitting Blood Pressure Location Right Arm Left Arm History Since Last Visit- (Skip if this is Patient's initial visit) Have you changed medications since your No No No last visit? Any new allergies or adverse reactions No No No Had a fall/change in ADL's that may No No No increase risk of falls Signs or symptoms of abuse and/or No No No neglect since last visit Have you been in the hospital since your No No last visit? Has dressing in place as prescribed No Yes No Has compression in place as prescribed N/A N/A N/A Has offloadiing in place as prescribed N/A N/A N/A Experienced any changes in pain level or No No No management Left Footwear Regular Shoe Regular Shoe Regular Shoe Right Footwear Regular Shoe Regular Shoe Regular Shoe Pain Scale: 0-10 Numeric Is Patient Pain Free? Yes Yes - Nurse 1 - General Ulcer Measurement Start: 07/27/21 08:52 Freq: Status: Active Protocol: Activity Type Activity Date Activity User E-Sign Co-Sign Detail Recorded Client Recorded Date Recorded By Document 07/27/21 09:12 KR [id number] 07/27/21 09:20 KR Document 08/03/21 09:59 AK Desktop 08/03/21 10:05 AK Document 08/24/21 10:42 ML [id number] 08/24/21 10:44 ML 07/27/21 08/03/21 08/24/21 09:12 09:59 10:42 Wound Center Nurse 1 #1 scalp -Combined with other wound No -Current Size (cm) - Length 3.4 1.7 0.3 -Current Size (cm) - Width 1 1 0.3 -Current Size (cm) - Depth 0.2 0.1 0.1 -Total Square Cm 3.4 1.7 0.09 -Photo Taken No -Tunneling No -Undermining/Tunneling No -Circular Undermining No -Change in Wound Grade/Stage No -Exudate Amt Small Medium None Present -Exudate Type Serosanguineous Serosanguineous -Wound Margin Distinct, Distinct, Outline Outline Attached Attached -Granulation Amt Small (1-33%) Medium (34-66%) Small (1-33%) -Granulation Quality [place] -Slough/Fibrin Yes No -Necrosis Amt Medium (34-66%) None Present (0 %) -Necrotic Tissue Type Adherent Slough -Structure Exposed N/A -Texture (Alize-wound Skin Appearance) Assessed, No Abnormality, Assessed Scarring Assessed -Moisture (Alize-wound Skin Appearance) No Abnormality, No Abnormality, Assessed Assessed Assessed -Color (Alize-wound Skin Appearance) No Abnormality, No Abnormality, Assessed Assessed Assessed -Temperature (Alize-wound Skin No Abnormality No Abnormality No Abnormality Appearance) (Pt Warm) (Pt Warm) (Pt Warm) -Tenderness on Palpation (Alize-wound No Yes No Skin Appearance) -Ulcer Cleansing Rinsed/ Rinsed/ Rinsed/ Irrigated with Irrigated with Irrigated with Saline Saline Saline -Foul Odor after Cleansing No No No -Anesthetic Used 5% Lidocaine 5% Lidocaine Gel Gel WC - Nurse 2 - General Ulcer CM Notes Start: 07/27/21 08:52 Freq: Status: Active Protocol: Activity Type Activity Date Activity User E-Sign Co-Sign Detail Recorded Client Recorded Date Recorded By Document 07/27/21 13:21 PL [id number] 07/27/21 13:26 PL Document 08/03/21 13:00 PL [id number] 08/03/21 13:02 PL Document 08/24/21 13:39 PL [id number] 08/24/21 13:39 PL 07/27/21 08/03/21 08/24/21 13:21 13:00 13:39 Wound Center Nurse 2 -Time 09:51 10:12 11:12 -Correct Patient Yes Yes Yes -Correct Side, Site, Position Yes Yes Yes -Correct Procedure Yes Yes Yes -Procedure Performed Yes Yes Yes -Type of Procedure Debridement Debridement Debridement -Clinical Debridement Subcutaneous Subcutaneous Subcutaneous -Tissue Removed Subcutaneous Subcutaneous Subcutaneous -Post Debridement (cm) - Length 4.0 3.5 1.2 -Post Debridement (cm) - Width 1.8 1.5 0.7 -Post Debridement (cm) - Depth 0.1 0.1 0.1 -Total Square (Post) (cm) 7.20 5.25 0.84 -Area of Debridement (cm) - Length 4.0 3.5 1.2 -Area of Debridement (cm) - Width 1.8 1.5 0.7 -Total Square (Area) (cm) 7.20 5.25 0.84 -Tunneling No No No -Undermining/Tunneling Yes Yes No -Undermining/Tunneling Starts (O'clock 6 6 ) -Undermining/Tunneling Ends (O'clock) 12 12 -Maximum Distance (cm) 1.5 1.0 -Circular Undermining No No No -Wound/Ulcer Outcome Not Healed Not Healed Not Healed -Ulcer Cleansing Rinsed/ Rinsed/ Rinsed/ Irrigated with Irrigated with Irrigated with Saline Saline Saline -Foul Odor after Cleansing No No No -Bioengineered Tissue No No No -Bleeding Controlled with Pressure Pressure -Treatment Response Procedure Procedure Tolerated Well Tolerated Well -Debridement - Subq, 1st 20sq cm Yes Yes Yes - Nurse 3 - General Ulcer D/C NN Start: 07/27/21 08:52 Freq: Status: Active Protocol: Activity Type Activity Date Activity User E-Sign Co-Sign Detail Recorded Client Recorded Date Recorded By Document 07/27/21 12:35 AK [id number] 07/27/21 12:36 AK Document 08/03/21 11:00 ML [id number] 08/03/21 11:01 ML Document 08/24/21 11:20 ML [id number] 08/24/21 11:20 ML 07/27/21 08/03/21 08/24/21 12:35 11:00 11:20 Wound Care Nurse 3 #1 scalp -Ulcer Cleansing Rinsed/ Rinsed/ Irrigated with Irrigated with Saline Saline -Foul Odor after Cleansing No -Primary Dressing Applied Aquacel AG 4x4 Aquacel AG 4x4 Aquacel AG 4x4 -Primary Dressing Covered/Secured with Dry Gauze Dry Gauze Dry Gauze -Aquacel AG 4x4 1 1 0 Pain Scale: 0-10 Numeric Is Patient Pain Free? Yes Yes WC - Visit Discharge Discharge Condition Stable Stable Stable Ambulatory Status Ambulatory Ambulatory Ambulatory Transportation Private Auto Private Auto Medication Reconcilliation completed & No No provided to patient/care provider Clinical Summary of Care Provided Yes Yes Assessment/Plan Assessment/Plan (1) Wound, open, scalp with complication: CODE(S): S01.00XA - Unspecified open wound of scalp, initial encounter QUALIFIERS: Encounter type: subsequent encounter Qualified Code(s): S01.00XD - Unspecified open wound of scalp, subsequent encounter PLAN: Debridement performed today in clinic as annotated above. Aquacel Ag applied. Covered with gauze and a stockinette cap. At home wound-care instructions: Change dressing once daily or more frequently as needed due to contamination. Wash hair as needed with baby shampoo. Avoid using regular shampoos, as these may contain chemicals that may aggravate the wound. Wash the scalp wound daily with antibacterial soap and water, rinse and dry thoroughly before each dressing change. Diet: Patient encouraged to increase protein intake while taking caution to avoid high carbohydrate and/or sugar intake. Also encouraged to intake probioti cs while on antibiotics. Labs/cultures/imaging: The patient's wound culture from 07/27/2021 showed the following: Rare Staph capitis, Staphylococcus epidermidis, and positive anaerobic bacteria. She was started on metronidazole 500 mg twice daily x7 days, which she completed. She is currently taking a course of Bactrim prescribed by Dr. De La Torre, and this will be continued. Follow-up: Return to clinic in 2 weeks for re-evaluation. Return sooner or report to the emergency room should symptoms worsen, or new symptoms arise. Note: [employer] speech recognition sinker winder software was used to create portions of this document. Sound-alike and misspelled words, as well as other sinker winder errors may be contained in the documentation.
== END 2021-08-26 23:59 ==
LOC: WC 10:30
PROVIDERS: PCP Family Medicine Geriatric Medicine; Visit Provider Nurse Practitioner Family
DX: T81.49XA Infection following a procedure, other surgical site, initial encounter (principal); S01.00XD Unspecified open wound of scalp, subsequent encounter; W22.09XD Striking against other stationary object, subsequent encounter; E55.9 Vitamin D deficiency, unspecified; E66.9 Obesity, unspecified; B95.8 Unspecified staphylococcus as the cause of diseases classified elsewhere; E78.5 Hyperlipidemia, unspecified; F41.8 Other specified anxiety disorders; G47.00 Insomnia, unspecified; G47.33 Obstructive sleep apnea (adult) (pediatric); I25.10 Atherosclerotic heart disease of native coronary artery without angina pectoris; I48.91 Unspecified atrial fibrillation; I50.9 Heart failure, unspecified; I11.0 Hypertensive heart disease with heart failure; J44.9 Chronic obstructive pulmonary disease, unspecified; K21.9 Gastro-esophageal reflux disease without esophagitis; K31.84 Gastroparesis; F17.210 Nicotine dependence, cigarettes, uncomplicated; R29.6 Repeated falls; Z68.30 Body mass index [BMI] 30.0-30.9, adult; Z93.3 Colostomy status; I25.2 Old myocardial infarction
CPT/HCPCS: 11042; 87070; 87075; 87077; 87186; 87205; 99213; G0463

== ENCOUNTER 2021-08-29 09:55 | Day surgery (SDC) | payer MEDICARE, SELFPAY ==
[2021-08-29 10:19] VITALS: BP 128/60; PULSE 64; RESP 16; O2SAT 99; BMI 20.7
[2021-08-29] MEDS: Lactated Ringers 1,000 ML 100 ML IV (10:50)
--- NOTE | 2021-08-29 11:34 | PCM.HP.BLA ---
History and Physical Date of Admission: 08/29/21 [facility] [address] [place] [address] OFFICE VISITDate of Service: 08/14/21 MR#:[id number]: ANDREY DIEHL [facility] #:[id number]:1945 Provider:Blu Friend, DOAge/Sex: 76/F [place] [place]Signed Intake Intake Visit Reasons: 1 M FU Chief Complaint: Diverticulitis Allergies hydromorphone [From Dilaudid] Allergy (Unknown, Verified 07/17/21 09:36) Unknown levofloxacin [From Levaquin] Allergy (Verified 07/17/21 09:36) Hives Penicillins Allergy (Verified 07/17/21 09:36) Hives Medications albuterol sulfate 2.5 mg INHALATION Q4H PRN PRN 03/19/16 [History Confirmed 08/14/21] budesonide-formoterol 2 puff INHALATION BID 03/19/16 [History Confirmed 08/14/21] acetaminophen 650 mg PO Q6H PRN PRN 08/02/16 [History Confirmed 08/14/21] cholecalciferol (vitamin D3) 1,000 unit PO DAILY 08/02/16 [History Confirmed 08/14/21] cyanocobalamin (vitamin B-12) 1,000 mcg PO DAILY 08/02/16 [History Confirmed 08/14/21] ipratropium-albuterol 3 ml INHALATION Q4H PRN PRN 08/02/16 [History Confirmed 08/14/21] tolterodine 2 mg PO DAILY #14 cap.sa 09/04/16 [Rx Confirmed 08/14/21] budesonide 0.5 mg INHALATION Q12H PRN PRN 11/13/16 [History Confirmed 08/14/21] lyazfcgq-sgc-dyud fum-folic ac 1 tab PO DAILY 11/13/16 [History Confirmed 08/14/21] pantoprazole 40 mg PO DAILY 12/24/16 [History Confirmed 08/14/21] metoclopramide HCl 10 mg tablet 10 mg PO TID PRN 10/13/17 [History Confirmed 08/14/21] ondansetron HCl 8 mg tablet 8 mg PO TID PRN tab 10/13/17 [History Confirmed 08/14/21] doxycycline hyclate 100 mg capsule 100 mg PO BID #60 cap 07/17/21 [Rx Confirmed 08/14/21] sulfamethoxazole 800 mg-trimethoprim 160 mg tablet 1 tab PO Q12H 14 Days #28 tab 08/03/21 [Rx Confirmed 08/14/21] linaclotide 145 mcg capsule 145 mcg PO QAM #30 cap 08/10/21 [Rx Confirmed 08/14/21] polyethylene glycol 3350 17 gram/dose oral powder 17 g PO Q10-15M #238 g 08/14/21 [Rx Confirmed 08/14/21] sucralfate 1 gram tablet 1 g PO BID #60 tab 08/14/21 [Rx Confirmed 08/14/21] tramadol 50 mg tablet 50 mg PO Q6H PRN #30 tab 08/14/21 [Rx Confirmed 08/14/21] PFSH Medical History (Updated 08/10/21 @ 22:[address] Westley Mckeon MD) Abdominal pain Acute severe exacerbation of asthma Allergic rhinitis due to allergen Asthma Atrial fibrillation with rapid ventricular response Benign essential HTN CAD (coronary artery disease) Congestive heart failure Constipation COPD (chronic obstructive pulmonary disease) Depression Failure to thrive in adult Frequent falls Gastroparesis GERD (gastroesophageal reflux disease) Hiatal hernia HTN (hypertension) Hyperlipidemia Insomnia Mixed anxiety depressive disorder Myocardial infarction Obesity (BMI 30.0-34.9) Obstructive sleep apnea Perforated diverticulum of large intestine Peristomal hernia Smoker Tobacco abuse Vitamin B12 deficiency Vitamin D deficiency Wound, open, scalp with complication Surgical History S/P cataract surgery S/P colostomy Family History Mother No problems noted. Social History Smoking Status: Current every day smoker tobacco type: cigarettes second hand exposure: No alcohol intake: never substance use type: does not use caffeine: Yes what type of physical activity do you participate in: none frequency: does not exercise seatbelt use: always HPI HPI Chief Complaint: Diverticulitis Details: ANDREY DIEHL, is a 76 F who presents to the office today for the chief complaint of abdominal pain and bloating. She has a very complicated surgical history. She has a past medical history on 05/29/2016 underwent laparoscopic Rayray-en-y, rerouting of stomach, gastric bypass due to hiatal hernia, severe GERD, at [facility]. On 06/28/2016, readmitted to [facility] with perforated sigmoid diverticulum, underwent open colectomy with end colostomy. She had a CT scan abdomen pelvis on 10/23/2020-it showed a normal gastric bypass with a large anterior abdominal wall hernia containing part of the colon and small bowel loops without evidence of incarceration or bowel obstruction. She frequently gets mid uppergastric pain causing discomfort with periodic nausea that causes her to try to throw up. She states her stomach empties in 15-20 minutes. She takes linzess for a lazy bowel, and this usually works but sometimes makes her very crampy. She also complains of increased discomfort located in her rectum. Alleviates stomach symptoms with glass of milk, peptobismol, laying in recliner, abdomen is becoming distended since surgery for diverticulitis. Her diverticulitis surgery performed in 2016, with three surgeries performed in a short period of time. She has always suffered with chronic constipation even prior to her multiple bowel surgeries. Her SYmptoms today are related as terrible with horrible pains in LLQ that she has been taking oxycodone to help manage. Has started Linzess which has helped some - one good BM on Friday and the rest of the time like a dry paste. Last visit 07/17/21 with abdominal pain, bloating and constipation. CIC addressed with d/c of linzess and initiation of aloe vera pills and mineral oil. Abdominal pain believed to be related to bacterial over growth, distention and CIC combined causing increased pressure. She has a large abdominal wall defect also noted. Doxycycline started to address bacterial overgrowth. After visit she called clinic to report increased discomfort and worsening constipation and Trulance ordered but this was not helpful and she was changed to linzess. She later came to the clinic in person to report that she was having distention and continued pain. Abdominal xray ordered. Her x-ray showed nonspecific bowel gas pattern with no signs of obstruction ROS Gastro GI: Positive for abdominal pain, bloating, nausea/dyspepsia and vomiting Psych Psychiatric: Positive for depression Exam Const General: cooperative and comfortable Nutritional Appearance: average body habitus and well nourished HENOH Head: normal to inspection Ears: hearing grossly normal bilaterally Nose: external nose normal Face and sinus: normal facial exam Mouth: oral mucosae normal Throat: posterior oropharynx normal Eyes General: appearance normal, both eyes and all related structures Neck Neck: normal visual inspection Chest Chest palpation & inspection: normal inspection of the chest and normal palpation of entire chest wall Resp Effort & Inspection: normal respiratory effort Auscultation: Bilateral: Clear to Auscultation Cardio Palpation: normal PMI Rate: regular rate Rhythm: regular rhythm GI Inspection: normal to inspection Auscultation: normal bowel sounds Percussion: normal to percussion Palpation: no hepatosplenomegaly Skin General: no rashes or lesions noted Neuro General: patient alert Extrem General: normal to inspection Psych Affect: normal affect Quality Reporting Tobacco Screening ([facility]) Smoking Status: Current every day smoker Assessment and Plan Assessment and Plan (1) Abdominal pain: Status: Acute Orders: Orders: EGD 08/29/21 Plan - Dr. Hurt Friend, DO: I will schedule her for EGD to evaluate her stomach. She is not shown any signs of obstruction. We will look in the stomach for inflammation involving the esophagus stomach or small bowel. Because appointment malnutrition she is at risk for gastritis and gastric ulcers. (2) Constipation: Status: Acute Plan - Dr. Hurt Friend, DO: I will give her MiraLAX to take as a prep to clean her colon out. Hopefully this will relieve some of her pain. Also give her a short course of tramadol therapy and put her on Carafate therapy if this is generating from the upper GI tract. Plan Details Other Medications: New: sucralfate (Carafate) 1 g PO BID 60 tabs 0RF tramadol 50 mg PO Q6H PRN 30 tabs 0RF pain polyethylene glycol 3350 (Miralax) 17 grams PO Q10-15M 238 grams 0RF
--- NOTE | 2021-08-29 12:32 | OP.EGD_ITS ---
Patient Name: Breanne Sarmiento Procedure Date: 08/29/2021 11:42 AM Date of : 1945 Age: 76 Procedure: Upper GI endoscopy Indications: Epigastric abdominal pain, Failure to respond to medical treatment Providers: Blu Casanova DO Medicines: See the Anesthesia note for documentation of the administered medications Patient Profile: This is a 76 year old female. Refer to note in patient chart for documentation of history and physical. Patient has symptoms. Complications: No immediate complications. Procedure: Pre-Anesthesia Assessment: - Prior to the procedure, a History and Physical was performed, and patient medications and allergies were reviewed. The patient is competent. The risks and benefits of the procedure and the sedation options and risks were discussed with the patient. All questions were answered and informed consent was obtained. Patient identification and proposed procedure were verified by the physician in the pre-procedure area. Mental Status Examination: alert and oriented. Airway Examination: normal oropharyngeal airway and neck mobility. Respiratory Examination: clear to auscultation. CV Examination: normal. Prophylactic Antibiotics: The patient does not require prophylactic antibiotics. Prior Anticoagulants: The patient has taken no previous anticoagulant or antiplatelet agents. ASA Grade Assessment: II - A patient with mild systemic disease. After reviewing the risks and benefits, the patient was deemed in satisfactory condition to undergo the procedure. The anesthesia plan was to use moderate sedation / analgesia (conscious sedation). Immediately prior to administration of medications, the patient was re-assessed for adequacy to receive sedatives. The heart rate, respiratory rate, oxygen saturations, blood pressure, adequacy of pulmonary ventilation, and response to care were monitored throughout the procedure. The physical status of the patient was re-assessed after the procedure. After obtaining informed consent, the endoscope was passed under direct vision. Throughout the procedure, the patient's blood pressure, pulse, and oxygen saturations were monitored continuously. The Endoscope was introduced through the mouth, and advanced to the jejunum. The upper GI endoscopy was accomplished without difficulty. The patient tolerated the procedure well. Moderate Sedation: Moderate (conscious) sedation was administered by the endoscopy nurse and supervised by the endoscopist. The patient's oxygen saturation, heart rate, blood pressure and response to care were monitored. Total physician intraservice time was 15 minutes. Scope In: 12:07:28 PM Scope Out: 12:25:10 PM Total Procedure Duration Time 0 hours 17 minutes 42 seconds Findings: A moderate Schatzki ring was found in the lower third of the esophagus. A TTS dilator was passed through the scope. Dilation with a 15-16.5-18 mm balloon dilator was performed to 18 mm. The dilation site was examined following endoscope reinsertion and showed moderate improvement in luminal narrowing. 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 A gastric pouch 1.5 cm wide with a small size was found containing jani, suture material and ulceration. The gastroduodenal anastomosis was characterized by erosion, erythema, friable mucosa, a hemorrhagic appearance and an intact staple line. This was traversed after dilation. A TTS dilator was passed through the scope. Dilation with an 18-19-20 mm pyloric balloon dilator was performed. The dilation site was examined following endoscope reinsertion and showed moderate improvement in luminal narrowing. Estimated blood loss was minimal. Two oozing cratered ulcers with a visible vessel were found distal to the gastrojejunal anastomosis. The largest lesion was 7 mm in largest dimension. Coagulation for hemostasis using heater probe was successful. Estimated blood loss was minimal. Impression: - Moderate Schatzki ring. Dilated. 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 Dilated. 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 - No specimens collected. Recommendation: - Discharge patient to home. - Full liquid diet today. - Continue present medications. - Await pathology results. - Repeat upper endoscopy in 2 months for surveillance. - Return to GI office in 2 weeks. Procedure Code(s): --- Professional --- 43585, 59, Esophagogastroduodenoscopy, flexible, transoral; with dilation of gastric/duodenal stricture(s) (eg, balloon, bougie) 48295, Esophagogastroduodenoscopy, flexible, transoral; with transendoscopic balloon dilation of esophagus (less than 30 mm diameter) G0500, Moderate sedation services provided by the same physician or other qualified health career development counselor performing a gastrointestinal endoscopic service that sedation supports, requiring the presence of an independent trained observer to assist in the monitoring of the patient's level of consciousness and physiological status; initial 15 minutes of intra-service time; patient age 5 years or older (additional time may be reported with 79117, as appropriate) Diagnosis Code(s): --- Professional --- K22.2, Esophageal obstruction Z98.0, Intestinal bypass and anastomosis status K28.4, Chronic or unspecified gastrojejunal ulcer with hemorrhage CPT copyright 2017 [employer]. All rights reserved. The codes documented in this report are preliminary and upon sharepoint net developer review may be revised to meet current compliance requirements. Blu Casanova DO 08/29/2021 12:31:54 PM This report has been signed electronically. Number of Addenda: 1 Note Initiated On: 08/29/2021 11:42 AM Addendum Number: 1 Addendum Date: 06/28/2022 6:10:43 AM MAC was used instead of moderate sedation for this patient. Blu Casanova DO 06/28/2022 6:10:48 AM This report has been signed electronically.
--- NOTE | 2021-08-29 12:33 | OP.CCLET_ITS ---
06/28/2022 Garret Coy MD [address] [place] [address] Re : Upper GI endoscopy procedure for Breanne Sarmiento Dear Dr. Coy This procedure was performed on Sunday, August 29, 2021. My impressions and recommendations are as follows: Impressions : - Moderate Schatzki ring. Dilated. 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 Dilated. 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 - No specimens collected. Recommendations : - Discharge patient to home. - Full liquid diet today. - Continue present medications. - Await pathology results. - Repeat upper endoscopy in 2 months for surveillance. - Return to GI office in 2 weeks. My findings are described in the full procedure note, which is enclosed. If I can be of further assistance, please feel free to contact me at . Sincerely, Blu Casanova, 08/29/2021 12:31:54 PM This report has been signed electronically.
--- NOTE | 2021-08-29 12:53 | OP.COLON_ITS ---
Patient Name: Breanne Sarmiento Procedure Date: 08/29/2021 12:27 PM Date of : 1945 Age: 76 Procedure: Colonoscopy Indications: Abdominal pain in the left upper quadrant, Iron deficiency anemia Providers: Blu Casanova DO Medicines: See the Anesthesia note for documentation of the administered medications Patient Profile: This is a 76 year old female. Refer to note in patient chart for documentation of history and physical. Patient has symptoms. Last Colonoscopy: 5 years ago. Complications: No immediate complications. Procedure: Pre-Anesthesia Assessment: - Prior to the procedure, a History and Physical was performed, and patient medications and allergies were reviewed. The patient is competent. The risks and benefits of the procedure and the sedation options and risks were discussed with the patient. All questions were answered and informed consent was obtained. Patient identification and proposed procedure were verified by the physician in the pre-procedure area. Mental Status Examination: alert and oriented. Airway Examination: normal oropharyngeal airway and neck mobility. Respiratory Examination: clear to auscultation. CV Examination: normal. Prophylactic Antibiotics: The patient does not require prophylactic antibiotics. Prior Anticoagulants: The patient has taken no previous anticoagulant or antiplatelet agents. ASA Grade Assessment: II - A patient with mild systemic disease. After reviewing the risks and benefits, the patient was deemed in satisfactory condition to undergo the procedure. The anesthesia plan was to use moderate sedation / analgesia (conscious sedation). Immediately prior to administration of medications, the patient was re-assessed for adequacy to receive sedatives. The heart rate, respiratory rate, oxygen saturations, blood pressure, adequacy of pulmonary ventilation, and response to care were monitored throughout the procedure. The physical status of the patient was re-assessed after the procedure. After I obtained informed consent, the scope was passed under direct vision. Throughout the procedure, the patient's blood pressure, pulse, and oxygen saturations were monitored continuously. The Colonoscope was introduced through the anus and advanced to the terminal ileum. The colonoscopy was performed without difficulty. The patient tolerated the procedure well. The quality of the bowel preparation was adequate. Moderate Sedation: Moderate (conscious) sedation was administered by the endoscopy nurse and supervised by the endoscopist. The patient's oxygen saturation, heart rate, blood pressure and response to care were monitored. Total physician intraservice time was 15 minutes. Scope In: 12:33:47 PM Scope Withdrawal Time 0 hours 4 minutes 26 seconds Scope Out: 12:47:12 PM Total Procedure Duration Time 0 hours 13 minutes 25 seconds Findings: There was evidence of a prior end sigmoid colostomy in the sigmoid colon. This was patent and was characterized by mild stenosis and ulceration. The anastomosis was traversed. The colon (entire examined portion) was moderately redundant. The terminal ileum appeared normal. Impression: - Patent end sigmoid colostomy, characterized by ulceration and mild stenosis. - Redundant colon. - The examined portion of the ileum was normal. - No specimens collected. Recommendation: - Discharge patient to home. - Resume previous diet. - Continue present medications. - Await pathology results. - Repeat colonoscopy in 5 years for surveillance. - Return to GI office in 2 weeks. Procedure Code(s): --- Professional --- 93181, Colonoscopy, flexible; diagnostic, including collection of specimen(s) by brushing or washing, when performed (separate procedure) G0500, Moderate sedation services provided by the same physician or other qualified health respiratory care program director performing a gastrointestinal endoscopic service that sedation supports, requiring the presence of an independent trained observer to assist in the monitoring of the patient's level of consciousness and physiological status; initial 15 minutes of intra-service time; patient age 5 years or older (additional time may be reported with 60860, as appropriate) Diagnosis Code(s): --- Professional --- Z98.0, Intestinal bypass and anastomosis status R10.12, Left upper quadrant pain D50.9, Iron deficiency anemia, unspecified Q43.8, Other specified congenital malformations of intestine CPT copyright 2017 [employer]. All rights reserved. The codes documented in this report are preliminary and upon death surveys coder review may be revised to meet current compliance requirements. Blu Casanova DO 08/29/2021 12:53:11 PM This report has been signed electronically. Number of Addenda: 1 Note Initiated On: 08/29/2021 12:27 PM Addendum Number: 1 Addendum Date: 06/28/2022 6:10:59 AM MAC was used instead of moderate sedation for this patient. Blu Casanova DO 06/28/2022 6:11:06 AM This report has been signed electronically.
--- NOTE | 2021-08-29 12:54 | OP.CCLET_ITS ---
06/28/2022 Garret Coy MD [address] [place] [address] Re : Colonoscopy procedure for Breanne Sarmiento Dear Dr. Coy This procedure was performed on Sunday, August 29, 2021. My impressions and recommendations are as follows: Impressions : - Patent end sigmoid colostomy, characterized by ulceration and mild stenosis. - Redundant colon. - The examined portion of the ileum was normal. - No specimens collected. Recommendations : - Discharge patient to home. - Resume previous diet. - Continue present medications. - Await pathology results. - Repeat colonoscopy in 5 years for surveillance. - Return to GI office in 2 weeks. My findings are described in the full procedure note, which is enclosed. If I can be of further assistance, please feel free to contact me at . Sincerely, Blu Friend, 08/29/2021 12:53:11 PM This report has been signed electronically.
[2021-08-29 12:55] VITALS: BP 118/66; BP 128/60; PULSE 67; RESP 14; TEMP 36.2; O2SAT 100
[2021-08-29 13:00] VITALS: BP 128/60; BP 128/73; PULSE 65; RESP 14; O2SAT 100
[2021-08-29 13:05] VITALS: BP 128/60; BP 153/85; PULSE 59; RESP 12; O2SAT 100
[2021-08-29 13:19] VITALS: BP 128/60; BP 148/82; PULSE 60; RESP 14; TEMP 36.8; O2SAT 98
[2021-08-29 13:36] VITALS: BP 128/60
== END 2021-08-29 15:00 | disposition home or self-care (01) ==
LOC: EN 09:59 → AC 10:00
PROVIDERS: PCP Family Medicine Geriatric Medicine; Referring Provider Family Medicine Geriatric Medicine; Visit Provider Internal Medicine Gastroenterology
PROC: 0DJD8ZZ Inspection of Lower Intestinal Tract, Via Natural or Artificial Opening Endoscopic (ICD-10-PCS; CPT 45378; principal; 2021-08-29 10:55)
DX: K94.03 Colostomy malfunction (principal); Q43.8 Other specified congenital malformations of intestine; K22.2 Esophageal obstruction; K94.23 Gastrostomy malfunction; K28.4 Chronic or unspecified gastrojejunal ulcer with hemorrhage; D50.9 Iron deficiency anemia, unspecified; I48.91 Unspecified atrial fibrillation; I11.0 Hypertensive heart disease with heart failure; I50.9 Heart failure, unspecified; J44.9 Chronic obstructive pulmonary disease, unspecified; F32.A Depression, unspecified; K21.9 Gastro-esophageal reflux disease without esophagitis; E78.5 Hyperlipidemia, unspecified; F17.210 Nicotine dependence, cigarettes, uncomplicated; Z79.51 Long term (current) use of inhaled steroids; Z79.899 Other long term (current) drug therapy; Z93.3 Colostomy status
CPT/HCPCS: 43245; 43249; 43255; 45378; J7120; J2405

== ENCOUNTER 2021-09-07 10:30 | Outpatient (RCR) | payer MEDICARE, SELFPAY ==
[2021-08-27 00:06] VITALS: BP 117/59; PULSE 100; RESP 16; TEMP 36.1
[2021-09-07 10:25] VITALS: BP 133/69; PULSE 72; TEMP 36.1
--- NOTE | 2021-09-07 11:00 | PN.PCM_ITS ---
History of Present Illness Date of Service: 09/07/21 Chief Complaint: Scalp wound History of Wound: Breanne is a pleasant 76-year old female who presents to the wound healing center today (07/27/2021) for evaluation of a scalp wound. Her records indicate an extensive medical history including CHF, CAD, COPD, hypertension, obstructive sleep apnea, and history of tobacco use. 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 On 07/15/2021 she was outside when she fell down a small ravine and hit her head on a rock. She presented to the emergency room for evaluation. Her ER notes indicate that she sustained an 8 cm curvilinear laceration of the scalp with 3 areas of arteriole bleeding. The arterioles were tied off with 5-0 Vicryl sutures. The laceration was closed using approximately fifteen 3-[address] showed no skull fracture or intracranial hemorrhage. Antibiotics were not initiated at that time. On 07/17/2021 she was evaluated by her GI doctor and started on doxycycline 100 mg p.o. twice daily x30 days for suspected bacterial overgrowth of the gut. Her sutures were removed on 07/23/[address] Coy. She has been washing her scalp regularly with her normal shampoo. She has not been applying any dressings to the area. The patient denies fever, chills, general malaise, or poor appetite. The patient has not had increased redness, swelling, or purulent/malodorous drainage from affected area. Progress of Wound: Patient's scalp wound is healed today. No concerns or complications. Objective Data Objective Data Vital Signs: Vital Signs Temp Pulse Resp BP 97.0 F L 72 16 133/69 H 09/07/21 10:25 09/07/21 10:25 08/27/21 00:06 09/07/21 10:25 Charges/Coding Visit Charges Office Visits / Consults: 30507 OV L3 Est Physical Exam Const alert, no apparent distress and healthy appearing General Appearance: cooperative, comfortable and well kempt HEENT Head and Scalp: Negative for laceration or raccoon eyes Eyes EOMs intact bilaterally Neck no JVD Resp normal respiratory effort Extremity normal capillary refill Skin Wounds: wounds noted No malodorous Wound Narrative: Scalp wound is healed today. Patient still has mild tenderness of periwound area. No palpable abscess. No warmth, erythema, or other concerning findings. Psych mental status grossly normal, cooperative and affect normal Debridement Note Debridement Note No debridement was completed: No debridement was completed today Post-Debridement Measurements and Additional Note: Post-Debridement Measurements/Treatment - Nurse 1 - General Ulcer Assessment Start: 09/07/21 10:25 Freq: Status: Active Protocol: CECELIA Activity Type Activity Date Activity User E-Sign Co-Sign Detail Recorded Client Recorded Date Recorded By Document 09/07/21 10:25 KR [id number] 09/07/21 10:26 KR 09/07/21 10:25 - Today's Visit Information Type of service Follow-up Visit (Physician/MORTGAGE ASSISTANT ) Arrival Mode Ambulatory Vital Signs Temperature (97.8 F-99.1 F) 97.0 F L Temperature Source Temporal Pulse Rate (60-100) 72 Pulse Location Monitor Blood Pressure (90/60-120/80) 133/69 H Blood Pressure Mean (mm Hg) 90 Source Monitor Position Sitting Blood Pressure Location Left Arm History Since Last Visit- (Skip if this is Patient's initial visit) Have you changed medications since your No last visit? Any new allergies or adverse reactions No Had a fall/change in ADL's that may No increase risk of falls Signs or symptoms of abuse and/or No neglect since last visit Have you been in the hospital since your No last visit? Has dressing in place as prescribed Yes Has offloadiing in place as prescribed N/A Experienced any changes in pain level or No management Left Footwear Regular Shoe Right Footwear Regular Shoe Pain Scale: 0-10 Numeric Is Patient Pain Free? Yes - Nurse 1 - General Ulcer Measurement Start: 09/07/21 10:25 Freq: Status: Active Protocol: Activity Type Activity Date Activity User E-Sign Co-Sign Detail Recorded Client Recorded Date Recorded By Document 09/07/21 10:25 KR [id number] 09/07/21 10:26 KR 09/07/21 10:25 Wound Center Nurse 1 #1 scalp -Current Size (cm) - Length 0.1 -Current Size (cm) - Width 0.1 -Current Size (cm) - Depth 0.1 -Total Square Cm 0.01 -Exudate Amt None Present -Wound Margin Distinct, Outline Attached -Granulation Amt Small (1-33%) -Granulation Quality [place] -Necrosis Amt None Present (0 %) -Texture (Alize-wound Skin Appearance) Assessed, Scarring -Moisture (Alize-wound Skin Appearance) Assessed -Color (Alize-wound Skin Appearance) No Abnormality, Assessed -Temperature (Alize-wound Skin No Abnormality Appearance) (Pt Warm) -Tenderness on Palpation (Alize-wound No Skin Appearance) -Ulcer Cleansing Rinsed/ Irrigated with Saline -Foul Odor after Cleansing No Assessment/Plan Assessment/Plan (1) Wound, open, scalp with complication: CODE(S): S01.00XA - Unspecified open wound of scalp, initial encounter QUALIFIERS: Encounter type: subsequent encounter Qualified Code(s): S01.00XD - Unspecified open wound of scalp, subsequent encounter PLAN: The patient's scalp laceration is healed today. She will be discharged from the wound healing center. As preventive measures: Avoid brushing/combing the affected area aggressively. Take caution to avoid pressure/injury against affected area. May resume use of normal shampoo/conditioner. Follow-up: Return to the wound healing center on an as-needed basis should wounds recur or new wounds develop. Note: Spoonity speech recognition information security architect software was used to create portions of this document. Sound-alike and misspelled words, as well as other information security architect errors may be contained in the documentation.
== END 2021-09-07 11:40 | disposition home or self-care (01) ==
LOC: WC 10:30
PROVIDERS: PCP Family Medicine Geriatric Medicine; Visit Provider Nurse Practitioner Family
DX: S01.00XD Unspecified open wound of scalp, subsequent encounter (principal); W22.09XD Striking against other stationary object, subsequent encounter; G47.33 Obstructive sleep apnea (adult) (pediatric); I25.10 Atherosclerotic heart disease of native coronary artery without angina pectoris; I11.0 Hypertensive heart disease with heart failure; I50.9 Heart failure, unspecified; J44.9 Chronic obstructive pulmonary disease, unspecified; Z93.3 Colostomy status
CPT/HCPCS: 99213; G0463

== ENCOUNTER → 2021-10-24 13:20 | Outpatient (CLI) | payer MEDICARE, SELFPAY ==
[2021-10-24 15:06] LABS: Absolute Lymphocyte Count 2.24 X10^3/uL (0.83-4.51); Absolute Neutrophil Count 3.9 X10^3/uL (2.0-7.7); Basophil# 0.07 X10^3/uL; Basophil% 0.9 % (0-1); Eosinophil# 0.56 X10^3/uL; Eosinophils% 7.3 % (0-5); Hemoglobin 10.8 g/dL (12.0-15.0); Lymphocyte # 2.24 X10^3/ul (0.83-4.51); Lymphocyte % 29.4 % (19-41); Mean Corp Hgb Conc 30.9 g/dL (32-36); Mean Corpuscular Hgb 24.1 pg (27.0-32.0); Mean Corpuscular Volume 78.1 fL (81-99); Mean Platelet Vol. 10.1 fl (6.2-12.0); Monocyte# 0.85 X10^3/uL; Monocyte% 11.2 % (0-10); NRBC Flagged by Analyzer 0 % (0-5); Neutrophil # 3.88 X10^3/uL (2.7-7.7); Neutrophil % 50.9 % (47-70); Platelet Count 272 K/mm3 (150-450); RBC Distribution Width CV 16.2 % (11.6-14.6); RBC Distribution Width SD 45.6 fl (35.1-43.9); Red Blood Count 4.48 M/mm3 (4.2-5.4); White Blood Count 7.6 K/mm3 (4.4-11.0)
[2021-10-24 15:19] LABS: Vitamin D,25 Hydroxy 41.9 ng/mL
[2021-10-24 15:30] LABS: ALB/GLOB Ratio 0.9 RATIO (0.9-2.4); AST(SGOT) 18 U/L (15-37); Alanine Aminotransfer ALT/SGPT 19 U/L (13-56); Albumin, Serum 3.2 g/dL (3.2-5.0); Alkaline Phosphatase 63 U/L (45-117); Anion Gap 8 (5-15); BUN 10 mg/dL (7-18); Calcium,Total 9.7 mg/dL (8.5-10.1); Chloride 110 mmol/L (98-107); Creatinine, Serum 0.67 mg/dL (0.55-1.02); EST Glomerular Filtration Rate 91 mL/min (>60); Est Glom Filt Rate - Afr Amer 110 mL/min (>60); Globulin 3.5 g/dL (2.2-4.2); Glucose 81 mg/dL (74-106); Potassium 3.4 mmol/L (3.5-5.1); Protein, Total 6.7 g/dL (6.4-8.2); Sodium Level 142 mmol/L (136-145); Thyroid Stim Hormone (TSH) 2.06 uIU/mL (0.358-3.74)
== END ==
PROVIDERS: PCP Family Medicine Geriatric Medicine; Visit Provider Family Medicine Geriatric Medicine
DX: E55.9 Vitamin D deficiency, unspecified (principal); I10 Essential (primary) hypertension
CPT/HCPCS: 36415; 80053; 82306; 84443; 85025

== ENCOUNTER 2021-12-26 11:20 | Outpatient (CLI) | payer MEDICARE, SELFPAY | END 2021-12-26 23:59 | disposition home or self-care (01) | LOC: PSN 11:21 | PROVIDERS: PCP Family Medicine Geriatric Medicine; Referring Provider Family Medicine Geriatric Medicine; Visit Provider Family Medicine Geriatric Medicine | DX: R68.83 Chills (without fever) (principal); Z20.822 Contact with and (suspected) exposure to COVID-19 | CPT/HCPCS: 87635; 87804; 87807; C9803; U0003; U0005 ==

== ENCOUNTER 2021-12-27 06:11 | Day surgery (SDC) | payer MEDICARE, SELFPAY ==
[2021-12-27] VITALS (8 sets, daily range): BP systolic 158–194; BP diastolic 82–100; PULSE 55–95; RESP 16–18; TEMP 36.4–36.9; O2SAT 98–100; BMI 21.0
[2021-12-27] MEDS: Lactated Ringers 1,000 ML 15 ML IV (06:35)
--- NOTE | 2021-12-27 07:06 | HP.PCM_ITS ---
History and Physical Date of Admission: 12/27/21 76 F who presents to the office today for Last visit 08/14/2021 for further evaluation of abdominal pain and bloating. Abdominal pain ? EGD Constipation ? Colon cleanse. Medications ? short duration of tramadol. Carafate. Protonix. Linzess QAM. Patient called several times stating she was constipated. After several attempts to have patient perform bowel cleanse at home it was determined the best course of action would be to perform a colonoscopy. EGD and colonoscopy performed 08/29/21 EGD ? moderate Schatzki ring, dilated. Stenosed Billroth I gastroduodenostomy characterized by erosion, erythema, friable mucosa, hemorrhagic appearance and intact staple line, dilated. Multiple oozing jejunal ulcers with visible vessel, treated. Colonoscopy ? redundant colon. Patent end sigmoid colostomy characterized by ulceration and mild stenosis. She is doing much better. Hardly any pain. Eating better. More active. However she is experiencing some problems with esophageal dysphagia. She did undergo EGD approximately 3 months ago and at that time she was discovered to have an esophageal ring. This esophageal ring was only dilated partially with a TTS balloon. She was improved to regarding her esophageal dysphagia but it has come back. ROS Const Constitutional: No anorexia, fatigue, fever(s), weight change or sleep problems Eyes Eyes: No change in vision ENT ENT: No abnormal hearing, difficulty swallowing, mouth lesions, tongue swelling or throat swelling Resp Respiratory: No cough or shortness of breath Cardio Cardiology: No chest pain at rest, chest pain with exertion, shortness of breath or dyspnea on exertion Gastro GI: No difficulty swallowing Genitourinary-Female: No difficulty urinating or burning urination Musc Musculoskeletal: No joint pain, joint swelling, muscle weakness or decreased muscle mass Skin Skin: No hair loss in leg, yellowing of the eye, itchy eyes, rash, skin ulcer or skin swelling Neuro Neurology: No abnormal hearing, abnormal movements, confusion, unsteady gait/balance or memory loss Psych Psychiatric: No anxiety, No confusion and No memory loss Endo Endocrine: No fatigue or weight change Aller/Imm Allergy/Immunologic: No itchy eyes, throat swelling or tongue swelling Malcolm/Lymp Hematologic/Lymphatic: No easy bleeding, easy bruising or enlarged lymph nodes Exam Const General: cooperative and comfortable Nutritional Appearance: average body habitus and well nourished HENMT Head: normal to inspection Ears: hearing grossly normal bilaterally Nose: external nose normal Face and sinus: normal facial exam Mouth: oral mucosae normal Throat: posterior oropharynx normal Eyes General: appearance normal, both eyes and all related structures Neck Neck: normal visual inspection Chest Chest palpation & inspection: normal inspection of the chest and normal palpation of entire chest wall Resp Effort & Inspection: normal respiratory effort Auscultation: Bilateral: Clear to Auscultation Cardio Palpation: normal PMI Rate: regular rate Rhythm: regular rhythm GI Inspection: normal to inspection Auscultation: normal bowel sounds Percussion: normal to percussion Palpation: no hepatosplenomegaly Skin General: no rashes or lesions noted Neuro General: patient alert Extrem General: normal to inspection Psych Affect: normal affect Quality Reporting Tobacco Screening ([facility] 138) Smoking Status: Former smoker Assessment and Plan Assessment and Plan (1) Rectal pain: Status: Acute Plan - Dr. Hurt Friend, DO: Is almost on a better gone with the use of rectal suppositories. She is still getting some signs of diverging colitis with some mucus. I told her this is natural because she does not have the fecal stream this hooked up to her rectum due to her multiple surgeries and requiring a colostomy. (2) Anastomotic ulcer: Status: Acute Plan - Dr. Hurt Friend, DO: Anastomotic ulcer from unknown cause. Was H. pylori negative. She is on antisecretory therapy. We will repeat upper endoscopy to evaluate anastomotic ulcer. (3) Dysphagia: Status: Acute Plan - Dr. Hurt Friend, DO: Dysphagia secondary to esophageal ring. She will undergo an upper endoscopy with dilation of the upper esophagus if needed. She was explained alternatives, risk, benefits including not withstanding bleeding, infection, sepsis, perforation, need for emergent . She will have an ASA 3. I have re-examined the patient. There are no clinical changes since date of exam.
[2021-12-27] MEDS: 0.9% Normal Saline (Pres. free 10 ML Vial (07:48)
[2021-12-27] MEDS: Epinephrine (1 mg/ml) 1 MG/ML VIAL (07:48)
--- NOTE | 2021-12-27 08:12 | OP.CCLET_ITS ---
07/24/2022 Garret Coy MD [address] [place] [address] Re : Upper GI endoscopy procedure for Breanne Sarmiento Dear Dr. Coy This procedure was performed on December. My impressions and recommendations are as follows: Impressions : - Abnormal esophageal motility, suspicious for aperistalsis. - Gastric bypass with a normal-sized pouch and intact staple line. 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 - Hemorrhagic gastropathy. - No specimens collected. Recommendations : - Discharge patient to home. - Clear liquid diet today. - Continue present medications. - No aspirin, ibuprofen, naproxen, or other non-steroidal anti-inflammatory drugs for 4 days. My findings are described in the full procedure note, which is enclosed. If I can be of further assistance, please feel free to contact me at . Sincerely, Blu Friend, 12/27/2021 8:11:28 AM This report has been signed electronically.
--- NOTE | 2021-12-27 08:12 | OP.EGD_ITS ---
Patient Name: Breanne Sarmiento Procedure Date: 12/27/2021 7:06 AM Date of : 1945 Age: 76 Procedure: Upper GI endoscopy Indications: Functional Dyspepsia, Dysphagia Providers: Blu Casanova DO Medicines: See the Anesthesia note for documentation of the administered medications Patient Profile: This is a 76 year old female. Refer to note in patient chart for documentation of history and physical. Patient has symptoms of acute abdominal cramping, chronic epigastric abdominal pain and chronic dysphagia. Complications: Tear Procedure: Pre-Anesthesia Assessment: - Prior to the procedure, a History and Physical was performed, and patient medications and allergies were reviewed. The patient is competent. The risks and benefits of the procedure and the sedation options and risks were discussed with the patient. All questions were answered and informed consent was obtained. Patient identification and proposed procedure were verified by the physician in the pre-procedure area. Mental Status Examination: alert and oriented. Airway Examination: normal oropharyngeal airway and neck mobility. Respiratory Examination: clear to auscultation. CV Examination: normal. Prophylactic Antibiotics: The patient does not require prophylactic antibiotics. Prior Anticoagulants: The patient has taken no previous anticoagulant or antiplatelet agents. ASA Grade Assessment: II - A patient with mild systemic disease. After reviewing the risks and benefits, the patient was deemed in satisfactory condition to undergo the procedure. The anesthesia plan was to use moderate sedation / analgesia (conscious sedation). Immediately prior to administration of medications, the patient was re-assessed for adequacy to receive sedatives. The heart rate, respiratory rate, oxygen saturations, blood pressure, adequacy of pulmonary ventilation, and response to care were monitored throughout the procedure. The physical status of the patient was re-assessed after the procedure. After obtaining informed consent, the endoscope was passed under direct vision. Throughout the procedure, the patient's blood pressure, pulse, and oxygen saturations were monitored continuously. The gastroscope was introduced through the mouth, and advanced to the proximal jejunum. The upper GI endoscopy was accomplished without difficulty. The patient tolerated the procedure well. Moderate Sedation: Moderate (conscious) sedation was administered by the endoscopy nurse and supervised by the endoscopist. The patient's oxygen saturation, heart rate, blood pressure and response to care were monitored. Total physician intraservice time was 15 minutes. Scope In: 7:16:35 AM Scope Out: 7:58:39 AM Total Procedure Duration Time 0 hours 42 minutes 4 seconds Findings: Abnormal motility was noted in the esophagus. The cricopharyngeus was normal. There is a decrease in motility of the esophageal body. The distal esophagus/lower esophageal sphincter is patulous. Normal peristalsis not noted. Evidence of a gastric bypass was found. A gastric pouch with a normal size was found containing jani. The staple line appeared intact. The gastrojejunal anastomosis was characterized by friable mucosa and severe stenosis. This was traversed after dilation. The etqpg-nf-bdgwkey limb measured 45 cm from anastomosis and was characterized by healthy appearing mucosa. The pbydochu-ju-nizazcg limb was not examined as it could not be found. Localized hemorrhagic mucosa with bleeding and stigmata of recent bleeding was found at the anastomosis. Area was successfully injected with 5 mL of a 1:10,000 solution of epinephrine for hemostasis. Coagulation for hemostasis using heater probe was successful. To repair the defect, the tissue edges were approximated and seven hemostatic clips were successfully placed. Closure of the defect was successful. There was no bleeding at the end of the procedure. A benign-appearing, intrinsic severe stenosis was found in the stomach. This was traversed. A TTS dilator was passed through the scope. Dilation with a 20 mm anastomotic balloon dilator was performed. The dilation site was examined following endoscope reinsertion and showed moderate improvement in luminal narrowing. Estimated blood loss was minimal. Impression: - Abnormal esophageal motility, suspicious for aperistalsis. - Gastric bypass with a normal-sized pouch and intact staple line. 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 - Hemorrhagic gastropathy. - No specimens collected. Recommendation: - Discharge patient to home. - Clear liquid diet today. - Continue present medications. - No aspirin, ibuprofen, naproxen, or other non-steroidal anti-inflammatory drugs for 4 days. Procedure Code(s): --- Professional --- 04982, 59, Esophagogastroduodenoscopy, flexible, transoral; with control of bleeding, any method 14986, Esophagogastroduodenoscopy, flexible, transoral; with dilation of gastric/duodenal stricture(s) (eg, balloon, bougie) 82652, 59, Moderate sedation services provided by the same physician or other qualified health skin care therapist performing the diagnostic or therapeutic service that the sedation supports, requiring the presence of an independent trained observer to assist in the monitoring of the patient's level of consciousness and physiological status; initial 15 minutes of intraservice time, patient age 5 years or older CPT copyright 2017 [employer]. All rights reserved. The codes documented in this report are preliminary and upon gyro compass tester review may be revised to meet current compliance requirements. Blu Casanova DO 12/27/2021 8:11:28 AM This report has been signed electronically. Number of Addenda: 1 Note Initiated On: 12/27/2021 7:06 AM Addendum Number: 1 Addendum Date: 07/24/2022 6:39:21 AM MAC was used as sedation for this procedure. Blu Casanova DO 07/24/2022 6:39:24 AM This report has been signed electronically.
== END 2021-12-27 23:59 | disposition home or self-care (01) ==
LOC: EN 06:14 → AC 06:15
PROVIDERS: PCP Family Medicine Geriatric Medicine; Referring Provider Family Medicine Geriatric Medicine; Visit Provider Internal Medicine Gastroenterology
PROC: 0DJ08ZZ Inspection of Upper Intestinal Tract, Via Natural or Artificial Opening Endoscopic (ICD-10-PCS; CPT 43235; principal; 2021-12-27 06:55)
DX: K31.89 Other diseases of stomach and duodenum (principal); J44.9 Chronic obstructive pulmonary disease, unspecified; R13.10 Dysphagia, unspecified; I25.2 Old myocardial infarction; G47.33 Obstructive sleep apnea (adult) (pediatric); I25.10 Atherosclerotic heart disease of native coronary artery without angina pectoris; K59.00 Constipation, unspecified; K21.9 Gastro-esophageal reflux disease without esophagitis; Z98.84 Bariatric surgery status; Z87.891 Personal history of nicotine dependence; Z79.899 Other long term (current) drug therapy
CPT/HCPCS: 43255; 43249; J7040; J7120; J2405; J3490

== ENCOUNTER 2022-01-23 15:11 | Outpatient (CLI) | payer MEDICARE, SELFPAY ==
[2022-01-23 15:48] LABS: Absolute Lymphocyte Count 1.79 X10^3/uL (0.83-4.51); Basophil# 0.06 X10^3/uL; Basophil% 1.2 % (0-1); Eosinophil# 0.05 X10^3/uL; Hemoglobin 10.4 g/dL (12.0-15.0); Lymphocyte # 1.79 X10^3/ul (0.83-4.51); Lymphocyte % 35.8 % (19-41); Mean Corp Hgb Conc 30.6 g/dL (32-36); Mean Corpuscular Hgb 23.9 pg (27.0-32.0); Mean Platelet Vol. 10.1 fl (6.2-12.0); Monocyte# 1.05 X10^3/uL; NRBC Flagged by Analyzer 0 % (0-5); Neutrophil # 2.04 X10^3/uL (2.7-7.7); Neutrophil % 40.8 % (47-70); Platelet Count 224 K/mm3 (150-450); RBC Distribution Width SD 45.7 fl (35.1-43.9); Red Blood Count 4.36 M/mm3 (4.2-5.4)
[2022-01-23 16:27] LABS: Anion Gap 4 (5-15); BUN 10 mg/dL (7-18); BUN/Creat Ratio 12.1 RATIO (10-20); Calcium,Total 9.9 mg/dL (8.5-10.1); Chloride 107 mmol/L (98-107); Creatinine, Serum 0.82 mg/dL (0.55-1.02); EST Glomerular Filtration Rate 71 mL/min (>60); Est Glom Filt Rate - Afr Amer 86 mL/min (>60); Glucose 133 mg/dL (74-106); Sodium Level 138 mmol/L (136-145)
--- NOTE | 2022-01-23 16:45 | RAD_ITS ---
EXAM: XR CHEST, 2 VIEWS CLINICAL INDICATION: COUGH TECHNIQUE: Frontal and lateral views of the chest. This report was created using [employer] report generation technology. COMPARISON: 02/19/2019. FINDINGS: LUNGS AND PLEURAL SPACES: Mild hyperinflation. No pneumothorax. No effusion. HEART: Unremarkable. Cardiac silhouette not enlarged. MEDIASTINUM: Central airways and mediastinal contour are unremarkable. BONES/JOINTS: Unremarkable. SOFT TISSUES: Unremarkable. RAD/Chest PA and Lateral IMPRESSION: Mild hyperinflation. No acute disease or change since previous exam. Electronically Signed: José Antonio Tierney MD at 3:42 EDT ,
== END 2022-01-23 23:59 | disposition home or self-care (01) ==
LOC: POLAB3 15:12 → RAD 16:39
PROVIDERS: PCP Family Medicine Geriatric Medicine; Referring Provider Family Medicine Geriatric Medicine; Visit Provider Family Medicine Geriatric Medicine
DX: R05.9 Cough, unspecified (principal); R68.83 Chills (without fever); J20.9 Acute bronchitis, unspecified; Z20.822 Contact with and (suspected) exposure to COVID-19
CPT/HCPCS: 36415; 71046; 80048; 85025; 87635; 87804; 87807; C9803; U0003; U0005

== ENCOUNTER 2022-01-28 12:25 | Outpatient (CLI) | payer MEDICARE, SELFPAY ==
--- NOTE | 2022-01-28 12:28 | RAD_ITS ---
STUDY: XR Abdomen 1 View 01/28/2022 1:31 PM REASON FOR EXAM: Female, 76 years old. ABDOMINAL PAIN ABDOMINAL PAIN TECHNIQUE: XR Abdomen 1 View COMPARISON: 10/23/2020 CT FINDINGS: Normal visualized lung bases. There is a moderate amount of colonic fecal material. Evidence for prior surgery of the small bowel. The visualized liver, spleen and kidneys are grossly normal in size and morphology. There are atherosclerotic vascular calcifications. There are diffuse degenerative changes of the visualized lumbar spine. RAD/Abd Inc Decub and/or Erect IMPRESSION: Constipation. Electronically Signed: Mayito Sharif MD at 17:38 EDT ,
== END 2022-01-28 23:59 | disposition home or self-care (01) ==
LOC: RAD 12:27
PROVIDERS: PCP Family Medicine Geriatric Medicine; Referring Provider Family Medicine Geriatric Medicine; Visit Provider Family Medicine Geriatric Medicine
DX: R10.9 Unspecified abdominal pain (principal)
CPT/HCPCS: 74019

== ENCOUNTER 2022-02-01 05:50 | Inpatient (IN) | payer MEDICARE, MEDICAID, SELFPAY ==
[2022-02-01] VITALS (13 sets, daily range): BP systolic 135–185; BP diastolic 60–113; PULSE 50–96; RESP 14–18; TEMP 36.7–37.1; O2SAT 93–97; BMI 19.5; BMI 19.0
--- NOTE | 2022-02-01 06:05 | EKG12_ITS ---
Test Reason : SOB, ABD PAIN Blood Pressure : / mmHG Vent. Rate : 063 BPM Atrial Rate : 063 BPM P-R Int : 164 ms QRS Dur : 086 ms QT Int : 412 ms P-R-T Axes : 058 075 062 degrees QTc Int : 421 ms Sinus rhythm with Premature atrial complexes Otherwise normal ECG Confirmed by TAYLOR HASKINS, MAMADOU ([id number]), editor producer MELANIE BAUTISTA ([id number]) on 02/06/2022 10:36:44 AM Referred By: KIMBERLEY Confirmed By:MAMADOU VAZQUEZ MD
--- NOTE | 2022-02-01 06:06 | CT_ITS ---
ACR Level 3 findings have been noted. An addendum which confirms receipt of the report will follow. STUDY: CT ABDOMEN AND PELVIS WITH CONTRAST REASON FOR EXAM: Female, 77 years old. abd pain RADIATION DOSAGE (If Supplied By Facility): CTDIvol = ( 8.05 ) mGy, DLP = ( 416.42 ) mGycm TECHNIQUE: Transaxial images were obtained from the dome of the diaphragm to the symphysis pubis without oral contrast. IV 100mL Isovue-300 was administered. Sagittal and coronal images were reconstructed. Individualized dose optimization techniques were used for this CT. COMPARISON: CT abdomen pelvis 10/15/2020 LIMITATIONS: None. LOWER CHEST: Small pericardial effusion. LIVER: Normal. GALLBLADDER/BILE DUCTS: Mild gallbladder wall thickening. PANCREAS: Atrophic changes in the pancreas with scattered cystic changes largest along the pancreatic tail measuring 12 mm.. SPLEEN: Normal. ADRENAL GLANDS: Normal. KIDNEYS/URETERS/BLADDER: Punctate nonobstructive left nephrolithiasis. No hydroureteronephrosis.. Mild urinary bladder wall thickening. Urinary bladder is decompressed, limiting evaluation. RETROPERITONEUM/AORTA: Mild atherosclerotic calcifications.. 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 Large anterior abdominal wall defect containing multiple loops of small bowel and colon. Mild increased stool in the rectum again seen. No discrete bowel dilatation. Scattered mild wall thickening in the small bowel. APPENDIX: Not visualized. PERITONEUM: Small pneumoperitoneum along the anterior abdominal wall defect and extending superiorly along the liver. Small free fluid in the abdomen and pelvis with largest pocket in the left lower quadrant. REPRODUCTIVE ORGANS: Calcified fibroids again seen. BONES/SOFT TISSUES: L1 compression fracture again seen. No acute osseous abnormality. Multilevel degenerative changes throughout the visualized spine.. OTHER: None. CT/Abdomen/Pelvis W IV Cont ONLY IMPRESSION: 1. Small pneumoperitoneum, concerning for bowel perforation/ruptured viscus. 2. Redemonstration of large anterior abdominal wall defect containing bowel loops and postsurgical changes, as detailed above. 3. Small free fluid. 4. Small pericardial effusion. 5. Mild gallbladder wall thickening. 6. Nonobstructive left nephrolithiasis. No hydroureteronephrosis. 7. 12 mm pancreatic tail cyst, can further characterized with nonemergent MR abdomen with contrast. Electronically Signed: Maycol Coleman MD at 7:48 EDT ,
--- NOTE | 2022-02-01 06:12 | EDS_ITS ---
HPI <Dr. Armando Killian MD - Last Filed: 02/01/22 06:23> HPI - GI History of Present Illness Chief Complaint: Abd Pain Informant: patient Narrative Narrative: Patient's history is mildly difficult as she is distracted by abdominal discomfort. It sounds like she saw her primary physician on Friday. She was having some nausea at the time but no abdominal pain. An x-ray was done that showed constipation which has been a long-term issue for her. She was given magnesium citrate and she did have 2 large bowel movements. She has had more liquid stool since. She also took Linzess that she has at home. Of note the patient does have an ostomy that was placed about 6 years ago due to diverticulitis. She has not been seeing blood in the stool. She has had nausea but no actual vomiting. Her appetite has been down. She states the pain is in the left upper quadrant mostly. Nothing really seems to make it better or worse. No fevers. She does have a long history of having abdominal pain for various reasons. It sounds like her last EGD and colonoscopy were done in August 2021. [facility] <Dr. Armando Killian MD - Last Filed: 02/01/22 06:23> [facility] Medical History Abdominal pain Abdominal pain Acute severe exacerbation of asthma Allergic rhinitis due to allergen Anastomotic ulcer Asthma Atrial fibrillation with rapid ventricular response CAD (coronary artery disease) Congestive heart failure Constipation COPD (chronic obstructive pulmonary disease) Depression Dysphagia Easy bruising Failure to thrive in adult Former smoker Frequent falls Gastroparesis GERD (gastroesophageal reflux disease) Hiatal hernia History of IBS History of irregular heartbeat Hyperlipidemia Insomnia Mixed anxiety depressive disorder Myocardial infarction Obstructive sleep apnea Open wound Perforated diverticulum of large intestine Peristomal hernia Rectal pain Tobacco abuse Vitamin B12 deficiency Vitamin D deficiency Wears glasses Wound, open, scalp with complication Home Medications acetaminophen 650 mg PO Q6H PRN PRN 08/02/16 [History Last Taken Unknown] ktbnhinq-yik-ucav fum-folic ac 1 tab PO DAILY 11/13/16 [History Last Taken Unknown] oxybutynin chloride 5 mg PO DAILY 08/24/21 [History Last Taken Unknown] metoclopramide HCl 5 mg tablet 5 mg PO BID #60 tab 01/11/22 [Rx Last Taken Unknown] albuterol sulfate INHALATION PRN 02/01/22 [History Last Taken Unknown] linaclotide [Linzess] See Rx Instructions .ROUTE .COMPLEX 02/01/22 [History Last Taken Unknown] pantoprazole 40 mg PO DAILY 02/01/22 [History Last Taken Unknown] Allergy/AdvReac Type Severity Reaction Status Date / Time hydromorphone [From Dilaudid] Allergy Unknown Unknown Verified 02/01/22 05:54 levofloxacin [From Levaquin] Allergy Hives Verified 02/01/22 05:54 Penicillins Allergy Hives Verified 02/01/22 05:54 Family History Mother No problems noted. Surgical History History of bilateral knee replacement History of cardiac catheterization History of esophagogastroduodenoscopy (EGD) History of tonsillectomy S/P cataract surgery S/P colostomy Social History Smoking Status: Former smoker second hand exposure: No alcohol intake: never substance use type: does not use caffeine: Yes what type of physical activity do you participate in: none frequency: does not exercise seatbelt use: always ROS <Dr. Armando Killian MD - Last Filed: 02/01/22 06:23> ROS ED Constitutional Constitutional ED: Denies chills or fever(s) ENT ENT ED: Denies rhinorrhea Cardiovascular Cardiovascular: Denies chest pain, palpitations or racing heartbeat Respiratory/Chest Respiratory/Chest: Denies cough or dyspnea Gastrointestinal Gastrointestinal: Reports abdominal pain, constipation, diarrhea, nausea and other Details: Patient had constipation but now diarrhea after treatment. Please see history of present illness. ; Denies melena or vomiting Genitourinary Genitourinary ED: Denies dysuria Musculoskeletal Musculoskeletal: Denies back pain Integumentary Denies rash Neurologic Neurologic: Denies paresthesias or weakness Endocrine Endocrinology: Denies polydipsia or polyuria Hematologic/Lymphatic Hematologic/Lymphatic: Denies easy bleeding or easy bruising Allergic/Immunologic Allergic/Immunologic ED: Denies urticaria EXAM <Dr. Armando Killian MD - Last Filed: 02/01/22 06:23> Physical Exam Const Vital Signs: 02/01/22 05:51 02/01/22 08:10 02/01/22 08:53 Temperature 98.1 F Temperature Source Oral Pulse Rate 53 L 68 68 Respiratory Rate 18 14 18 Respiratory Pattern Normal Blood Pressure 185/113 H 157/87 H Blood Pressure Mean 137 110 Pulse Ox 97 96 Oxygen Delivery Method Room Air Room Air 02/01/22 10:11 02/01/22 13:02 Temperature Temperature Source Pulse Rate 65 58 L Respiratory Rate 14 18 Respiratory Pattern Blood Pressure 178/91 H 135/88 H Blood Pressure Mean 120 103 Pulse Ox 95 94 Oxygen Delivery Method Room Air Room Air Positive well nourished and well developed Constitutional Narrative: Patient does look mildly uncomfortable. General Appearance ED: well developed HEENT Reports dry mucous membranes; Denies moist mucous membranes normocephalic and atraumatic Mouth ED: Yes dry mucous membranes Mouth: dry mucous membranes Eyes General Eye ED: Negative for pale conjunctiva or scleral icterus Neck no JVD Resp normal respiratory effort and clear to auscultation bilaterally Cardio regular rhythm Rate: bradycardia GI non-distended GI Narrative: Bowel sounds seem normal. Abdomen is not distended. Abdomen is soft. I do not feel mass. I do not hear a bruit. She does have some tenderness toward the left upper quadrant. She has mild nonfocal tenderness other areas also. Auscultation: normoactive bowel sounds Palpation: soft Back/Spine no CVA tenderness Extremity full ROM General Extremety ED: Negative for edema or tenderness General Extremity: Negative for edema Neuro Sensorium / Orientation: alert; Negative for confused, lethargic or stuporous Skin Lesions: no lesions Rashes: no rashes <Dr. Carlos Bean, DO - Last Filed: 02/06/22 07:08> Physical Exam Const Vital Signs: 02/01/22 05:51 02/01/22 08:10 02/01/22 08:53 Temperature 98.1 F Temperature Source Oral Pulse Rate 53 L 68 68 Respiratory Rate 18 14 18 Respiratory Pattern Normal Blood Pressure 185/113 H 157/87 H Blood Pressure Mean 137 110 Pulse Ox 97 96 Oxygen Delivery Method Room Air Room Air 02/01/22 10:11 02/01/22 13:02 Temperature Temperature Source Pulse Rate 65 58 L Respiratory Rate 14 18 Respiratory Pattern Blood Pressure 178/91 H 135/88 H Blood Pressure Mean 120 103 Pulse Ox 95 94 Oxygen Delivery Method Room Air Room Air [facility] <Dr. Armando Killian MD - Last Filed: 02/01/22 06:23> [facility] Lab Data Labs: Laboratory Results - last 24 hr 02/01/22 02/01/22 02/01/22 05:58 05:58 06:20 WBC 9.2 RBC 5.79 H Hgb 13.9 Hct 43.6 MCV 75.3 L MCH 24.0 L MCHC 31.9 L RDW Std Deviation 42.7 RDW Coeff of Travis 15.9 H Plt Count 489 H MPV 9.7 Immature Gran % (Auto) 0.400 Neut % (Auto) 65.3 Lymph % (Auto) 25.3 [place] % (Auto) 8.0 Eos % (Auto) 0.9 Baso % (Auto) 0.1 Absolute Neuts (auto) 6.0 Absolute Lymphs (auto) 2.34 Nucleated RBC % 0 PT INR APTT Sodium 137 Potassium 4.2 Chloride 107 Carbon Dioxide 26.0 Anion Gap 4 L BUN 21 H Creatinine 0.84 Estim Creat Clear Calc 39.56 Est GFR (MDRD) Af Amer 85 Est GFR (MDRD) Non-Af 70 BUN/Creatinine Ratio 25.1 H Glucose 201 H Lactic Acid 1.4 Calcium 10.4 H Total Bilirubin 0.70 AST 20 ALT 28 Alkaline Phosphatase 80 Troponin I High Sens 7 Total Protein 7.2 Albumin 3.4 Globulin 3.8 Albumin/Globulin Ratio 0.9 Lipase 31 L Urine Color Urine Clarity Urine pH Ur Specific [place] Urine Protein Urine Glucose (UA) Urine Ketones Urine Occult Blood Urine Nitrite Urine Bilirubin Urine Urobilinogen Ur Leukocyte Esterase Urine RBC Urine WBC Ur Squamous Epith Cells Urine Bacteria Urine Mucus Blood Type Antibody Screen 02/01/22 02/01/22 02/01/22 08:14 08:14 08:42 WBC RBC Hgb Hct MCV MCH MCHC RDW Std Deviation RDW Coeff of Travis Plt Count MPV Immature Gran % (Auto) Neut % (Auto) Lymph % (Auto) [place] % (Auto) Eos % (Auto) Baso % (Auto) Absolute Neuts (auto) Absolute Lymphs (auto) Nucleated RBC % PT 13.3 INR 1.1 APTT 25.3 Sodium Potassium Chloride Carbon Dioxide Anion Gap BUN Creatinine Estim Creat Clear Calc Est GFR (MDRD) Af Amer Est GFR (MDRD) Non-Af BUN/Creatinine Ratio Glucose Lactic Acid Calcium Total Bilirubin AST ALT Alkaline Phosphatase Troponin I High Sens Total Protein Albumin Globulin Albumin/Globulin Ratio Lipase Urine Color Yellow Urine Clarity Clear Urine pH 6.5 Ur Specific [place] 1.010 Urine Protein 15 H Urine Glucose (UA) Normal Urine Ketones Negative Urine Occult Blood Negative Urine Nitrite Negative Urine Bilirubin Negative Urine Urobilinogen Normal Ur Leukocyte Esterase Negative Urine RBC 0 SEEN Urine WBC 0 SEEN Ur Squamous Epith Cells 0 SEEN Urine Bacteria 0 SEEN Urine Mucus 0 SEEN Blood Type O POSITIVE Antibody Screen NEGATIVE Radiography Diagnostic Testing: Clinical Impression(s) from Imaging Studies Abdomen/Pelvis CT 02/01/22 06:06 IMPRESSION: 1. Small pneumoperitoneum, concerning for bowel perforation/ruptured viscus. 2. Redemonstration of large anterior abdominal wall defect containing bowel loops and postsurgical changes, as detailed above. 3. Small free fluid. 4. Small pericardial effusion. 5. Mild gallbladder wall thickening. 6. Nonobstructive left nephrolithiasis. No hydroureteronephrosis. 7. 12 mm pancreatic tail cyst, can further characterized with nonemergent MR abdomen with contrast. Electronically Signed: Maycol Coleman MD at 7:48 EDT , ADDENDUM: 02/01/22 0808 IMPRESSION: 1. Small pneumoperitoneum, concerning for bowel perforation/ruptured viscus. 2. Redemonstration of large anterior abdominal wall defect containing bowel loops and postsurgical changes, as detailed above. 3. Small free fluid. 4. Small pericardial effusion. 5. Mild gallbladder wall thickening. 6. Nonobstructive left nephrolithiasis. No hydroureteronephrosis. 7. 12 mm pancreatic tail cyst, can further characterized with nonemergent MR abdomen with contrast. N.B. : Dr. Edmund MD, confirmed on 02/01/2022 08:02:01 (ET) that the healthcare facility has received the radiology report. Electronically Signed: Maycol Coleman MD at 7:48 EDT , Chest X-Ray 02/01/22 08:12 IMPRESSION: Fundus suggestive of linear atelectasis at the left lung base. I suspect a small amount of free intraperitoneal air. Electronically Signed: Sreekanth Kenney MD at 9:39 EDT , KUB X-Ray 02/01/22 08:22 IMPRESSION: The tip of the nasogastric tube is in the body of the stomach. Electronically Signed: Sreekanth Kenney MD at 9:39 EDT , <Dr. Carlos Bean, DO - Last Filed: 02/06/22 07:08> [facility] MDM Narrative Medical decision making narrative: Le: Patient signed out to me to follow-up on CT scan. Results discussed the radiologist notes pneumoperitoneum suspecting from perforated viscus unclear on exact location. Examination the patient she has generalized tenderness on my exam. She is having progressive pain past 2 days. History of ostomy placed in 2016 secondary to a perforated diverticular disease. She had a Rayray-en-Y surgery shortly prior to that. Her surgery was performed by [facility]. She does not take anticoagulation medications. Preop labs EKG chest x-ray all ordered. She is ordered for cefotetan for antibiotics with a penicillin and Levaquin allergy. She require additional morphine for pain control. I discussed with on-call surgeon Dr. Hobbs who recommended NG tube, however her scheduled filled today with emergent surgery. Patient's daughter works in the surgical unit, she requests discussion with Dr. Adarsh Ibarra, call was made, recommendation with GI involvement for which she seen in the past. I spoke with Dr. Casanova who is aware and will coordinate care with surgery. Further discussion with history apparent CHF paroxysmal A. fib per daughter status post fluid overload from her management from her peripheral diverticulitis at that time. She had a cardiac cath that was normal at that time. She does not take any anticoagulation medications. NG tube was placed with no difficulties. Chest x-ray upright and KUB reviewed by myself NG into the abdomen, also noted free air right diaphragm small area consistent with her CT scan findings. Surgery will evaluate in the ED. Patient laboratory studies are normal white count 9.2 lactic acid 1.4. 1415: Patient was seen by general surgery Dr. Ibarra, patient extensive surgical history requiring a mesh secondary healing from the perforation and a skin graft over. She has been denied multiple surgeries in the past but she with her gallbladder. He states surgical intervention is not an option with his standpoint. He reviewed the imaging is concerned the perforations coming from her Rayray-en-Y anastomosis region. He recommend discussing with GI again for endoscopy for evaluation for the area and repair with this route of we have the resources. I respoke with Dr. Casanova, will evaluate patient in the ED, he states he requests admission to medical service, he will plan for a Gastrografin study with plan reimagings to try to locate the region for repair. Patient family updated, spoke with hospitalist, Dr. Ludwig for admission to medical floor. Her vitals remained stable. Lab Data Attestation: I reviewed the patient's lab results. Labs: Laboratory Results - last 24 hr 02/01/22 02/01/22 02/01/22 05:58 05:58 06:20 WBC 9.2 RBC 5.79 H Hgb 13.9 Hct 43.6 MCV 75.3 L MCH 24.0 L MCHC 31.9 L RDW Std Deviation 42.7 RDW Coeff of Travis 15.9 H Plt Count 489 H MPV 9.7 Immature Gran % (Auto) 0.400 Neut % (Auto) 65.3 Lymph % (Auto) 25.3 [place] % (Auto) 8.0 Eos % (Auto) 0.9 Baso % (Auto) 0.1 Absolute Neuts (auto) 6.0 Absolute Lymphs (auto) 2.34 Nucleated RBC % 0 PT INR APTT Sodium 137 Potassium 4.2 Chloride 107 Carbon Dioxide 26.0 Anion Gap 4 L BUN 21 H Creatinine 0.84 Estim Creat Clear Calc 39.56 Est GFR (MDRD) Af Amer 85 Est GFR (MDRD) Non-Af 70 BUN/Creatinine Ratio 25.1 H Glucose 201 H Lactic Acid 1.4 Calcium 10.4 H Total Bilirubin 0.70 AST 20 ALT 28 Alkaline Phosphatase 80 Troponin I High Sens 7 Total Protein 7.2 Albumin 3.4 Globulin 3.8 Albumin/Globulin Ratio 0.9 Lipase 31 L Urine Color Urine Clarity Urine pH Ur Specific [place] Urine Protein Urine Glucose (UA) Urine Ketones Urine Occult Blood Urine Nitrite Urine Bilirubin Urine Urobilinogen Ur Leukocyte Esterase Urine RBC Urine WBC Ur Squamous Epith Cells Urine Bacteria Urine Mucus Blood Type Antibody Screen 02/01/22 02/01/22 02/01/22 08:14 08:14 08:42 WBC RBC Hgb Hct MCV MCH MCHC RDW Std Deviation RDW Coeff of Travis Plt Count MPV Immature Gran % (Auto) Neut % (Auto) Lymph % (Auto) [place] % (Auto) Eos % (Auto) Baso % (Auto) Absolute Neuts (auto) Absolute Lymphs (auto) Nucleated RBC % PT 13.3 INR 1.1 APTT 25.3 Sodium Potassium Chloride Carbon Dioxide Anion Gap BUN Creatinine Estim Creat Clear Calc Est GFR (MDRD) Af Amer Est GFR (MDRD) Non-Af BUN/Creatinine Ratio Glucose Lactic Acid Calcium Total Bilirubin AST ALT Alkaline Phosphatase Troponin I High Sens Total Protein Albumin Globulin Albumin/Globulin Ratio Lipase Urine Color Yellow Urine Clarity Clear Urine pH 6.5 Ur Specific [place] 1.010 Urine Protein 15 H Urine Glucose (UA) Normal Urine Ketones Negative Urine Occult Blood Negative Urine Nitrite Negative Urine Bilirubin Negative Urine Urobilinogen Normal Ur Leukocyte Esterase Negative Urine RBC 0 SEEN Urine WBC 0 SEEN Ur Squamous Epith Cells 0 SEEN Urine Bacteria 0 SEEN Urine Mucus 0 SEEN Blood Type O POSITIVE Antibody Screen NEGATIVE Radiography Diagnostic Testing: Clinical Impression(s) from Imaging Studies Abdomen/Pelvis CT 02/01/22 06:06 IMPRESSION: 1. Small pneumoperitoneum, concerning for bowel perforation/ruptured viscus. 2. Redemonstration of large anterior abdominal wall defect containing bowel loops and postsurgical changes, as detailed above. 3. Small free fluid. 4. Small pericardial effusion. 5. Mild gallbladder wall thickening. 6. Nonobstructive left nephrolithiasis. No hydroureteronephrosis. 7. 12 mm pancreatic tail cyst, can further characterized with nonemergent MR abdomen with contrast. Electronically Signed: Maycol Coleman MD at 7:48 EDT , ADDENDUM: 02/01/22 0808 IMPRESSION: 1. Small pneumoperitoneum, concerning for bowel perforation/ruptured viscus. 2. Redemonstration of large anterior abdominal wall defect containing bowel loops and postsurgical changes, as detailed above. 3. Small free fluid. 4. Small pericardial effusion. 5. Mild gallbladder wall thickening. 6. Nonobstructive left nephrolithiasis. No hydroureteronephrosis. 7. 12 mm pancreatic tail cyst, can further characterized with nonemergent MR abdomen with contrast. N.B. : Dr. Edmund MD, confirmed on 02/01/2022 08:02:01 (ET) that the healthcare facility has received the radiology report. Electronically Signed: Maycol Coleman MD at 7:48 EDT , Chest X-Ray 02/01/22 08:12 IMPRESSION: Fundus suggestive of linear atelectasis at the left lung base. I suspect a small amount of free intraperitoneal air. Electronically Signed: Sreekanth Kenney MD at 9:39 EDT , KUB X-Ray 02/01/22 08:22 IMPRESSION: The tip of the nasogastric tube is in the body of the stomach. Electronically Signed: Sreekanth Kenney MD at 9:39 EDT , <Dr. Carlos Bean, DO - Last Filed: 02/06/22 07:08> Critical Care Time Critical Care Time: Yes Critical care time (excluding procedures): 30-74 minutes, Discussing w/Patient &/or Family/Personal Companion, Discussing w/Consultants, Arranging Admission or Transfer, Performing Direct Patient Care at Bedside and - (60 minutes) Discharge Plan Dx/Rx/DC Orders Clinical Impression: Pneumoperitoneum of unknown etiology, Abdominal pain, History of colostomy, History of Rayray-en-Y gastric bypass Disposition Disposition: Acute Care [facility]
[2022-02-01] MEDS: Ondansetron 4 MG/2 ML Vial IV ×2 (06:13→17:31)
[2022-02-01] MEDS: Morphine 4 MG/ML Syringe IV ×5 (06:15→15:48)
[2022-02-01 06:26] LABS: Absolute Lymphocyte Count 2.34 X10^3/uL (0.83-4.51); Basophil# 0.01 X10^3/uL; Basophil% 0.1 % (0-1); Eosinophil# 0.08 X10^3/uL; Eosinophils% 0.9 % (0-5); Hematocrit 43.6 % (37-47); Hemoglobin 13.9 g/dL (12.0-15.0); Lymphocyte # 2.34 X10^3/ul (0.83-4.51); Lymphocyte % 25.3 % (19-41); Mean Corp Hgb Conc 31.9 g/dL (32-36); Mean Corpuscular Volume 75.3 fL (81-99); Mean Platelet Vol. 9.7 fl (6.2-12.0); Monocyte# 0.74 X10^3/uL; NRBC Flagged by Analyzer 0 % (0-5); Neutrophil # 6.03 X10^3/uL (2.7-7.7); Neutrophil % 65.3 % (47-70); Platelet Count 489 K/mm3 (150-450); RBC Distribution Width CV 15.9 % (11.6-14.6); RBC Distribution Width SD 42.7 fl (35.1-43.9); Red Blood Count 5.79 M/mm3 (4.2-5.4); White Blood Count 9.2 K/mm3 (4.4-11.0)
[2022-02-01 06:43] LABS: ALB/GLOB Ratio 0.9 RATIO (0.9-2.4); AST(SGOT) 20 U/L (15-37); Alanine Aminotransfer ALT/SGPT 28 U/L (13-56); Albumin, Serum 3.4 g/dL (3.2-5.0); Alkaline Phosphatase 80 U/L (45-117); Anion Gap 4 (5-15); BUN 21 mg/dL (7-18); BUN/Creat Ratio 25.1 RATIO (10-20); Calcium,Total 10.4 mg/dL (8.5-10.1); Chloride 107 mmol/L (98-107); Creatinine, Serum 0.84 mg/dL (0.55-1.02); EST Glomerular Filtration Rate 70 mL/min (>60); Est Glom Filt Rate - Afr Amer 85 mL/min (>60); Estimated Creatinine Clearance 39.56 ml/min; Globulin 3.8 g/dL (2.2-4.2); Glucose 201 mg/dL (74-106); Lipase 31 U/L (73-393); Potassium 4.2 mmol/L (3.5-5.1); Protein, Total 7.2 g/dL (6.4-8.2); Sodium Level 137 mmol/L (136-145); Troponin-I HS 7 pg/mL (3.0-54.0)
[2022-02-01 06:52] LABS: Lactic Acid 1.4 mmol/L (0.4-1.9)
--- NOTE | 2022-02-01 08:12 | RAD_ITS ---
STUDY: X-RAY CHEST REASON FOR EXAM: Female, 77 years old. Preop TECHNIQUE: Single AP portable view of the chest. COMPARISON: Comparison is made with prior study dated 01/23/2022. FINDINGS: A oral gastric tube is seen with the tip below the left hemidiaphragm. Hyperinflation. Minimal increased linear markings at the left lung base suggestive of left basilar atelectasis. There is no demonstrated pleural abnormality. There is calcification of the mitral valve annulus. Normal mediastinum and shai. Normal visualized pulmonary arteries. There is atherosclerotic calcification of the aortic arch with tortuosity. There are diffuse degenerative changes of the visualized thoracic spine. There is degenerative osteoarthritis of the bilateral shoulders. I suspect a tiny amount of free air below the right hemidiaphragm. Surgical clips are seen in the left upper quadrant. RAD/Chest 1 View (Portable) IMPRESSION: Fundus suggestive of linear atelectasis at the left lung base. I suspect a small amount of free intraperitoneal air. Electronically Signed: Sreekanth Kenney MD at 9:39 EDT ,
--- NOTE | 2022-02-01 08:22 | RAD_ITS ---
STUDY: X-RAY - ABDOMEN/PELVIS REASON FOR EXAM: Female, 77 years old. NG Insertion TECHNIQUE: Single AP view of the abdomen / pelvis. COMPARISON: None. FINDINGS: The tip of the NG tube is in the distal body of the stomach. There is an unremarkable bowel gas pattern. The visualized liver, spleen and kidneys are grossly normal in size and morphology. Normal soft tissue structures. There are diffuse degenerative changes of the visualized lumbar spine. RAD/Abdomen Single View (Portable) IMPRESSION: The tip of the nasogastric tube is in the body of the stomach. Electronically Signed: Sreekanth Kenney MD at 9:39 EDT ,
[2022-02-01 08:34] LABS: International Normalized Ratio 1.1; Prothrombin Time (Protime)PT. 13.3 SECONDS (11.7-14.9)
[2022-02-01 08:35] LABS: Partial Thromboplast Time 25.3 Seconds (24.1-36.2)
[2022-02-01] MEDS: Lidocaine 4% 5 ML Ampul 2 ML INHALATION (08:44)
[2022-02-01 08:45] LABS: Bacteria 0 SEEN /hpf (None Seen); Mucous, Urine 0 SEEN /hpf (<or=2+); Red Blood Cells-Urine 0 SEEN /hpf (0-5); Squamous Epithelial Cells - UA 0 SEEN /hpf (5-10); White Blood Cells 0 SEEN /hpf (0-5)
[2022-02-01 08:46] LABS: Color, Urine Yellow (Yellow); Glucose, Dipstick Normal (Normal); Ketone-Dipstick Negative (Negative); Leukocyte Esterase-Dipstick Negative /ul (Negative); Nitrite-Dipstick Negative (Negative); Occult Blood-Urine Negative /ul (Negative); Protein-Dipstick 15 mg/dl (Negative); Urine Bilirubin Dipstick Negative (Negative); Urine Clarity Clear (Clear); Urine Urobilinogen Normal (Normal); Urine pH 6.5 (5.0 - 8.0)
--- NOTE | 2022-02-01 14:25 | NURSING ---
MED SURG KORAM PNEUMOPERITONEUM, ABD PAIN
--- NOTE | 2022-02-01 15:32 | HP.PCM.HOS_ITS ---
[facility] - General General Date of Admission: 02/01/22 HPI Narrative ANDREY DIEHL, is a 77 F who presents via the ED on 02/01/2022 with a complaint of abdominal pain. Patient has an extensive past medical history as outlined. Started having abdominal pain earlier in the week and states it gradually worsened to the point where it was very severe today so she has come into the ED. She did see her PCP about 4 days prior to admission was having nausea then but no abdominal pain. An x-ray of the abdomen done at that time showed constipation which was chronic for her. She was given magnesium citrate and this helped her have bowel movements. She has been having worsening abdominal pain and pain was mainly in the left upper quadrant. There are no aggravating or relieving factors. She denied any nausea, vomiting review of stems otherwise negative. Vitals at time of review were BP of 155/84, VT of 79. RR of 18 and temp of 98F, with oxygen sats of 94% on room air. CT of the abdomen and pelvis done shows no pneumoperitoneum concerning for bowel perforation/ruptured viscus with redemonstration of large anterior abdominal wall defect containing bowel loops and postsurgical changes. Chest x-ray showed linear atelectasis at the left lung base. SHe is being admitted to be managed for intractable abdominal pain due to pneumoperitoneum. [facility] Medical History Abdominal pain Abdominal pain Acute severe exacerbation of asthma Allergic rhinitis due to allergen Anastomotic ulcer Asthma Atrial fibrillation with rapid ventricular response CAD (coronary artery disease) Congestive heart failure Constipation COPD (chronic obstructive pulmonary disease) Depression Dysphagia Easy bruising Failure to thrive in adult Former smoker Frequent falls Gastroparesis GERD (gastroesophageal reflux disease) Hiatal hernia History of IBS History of irregular heartbeat Hyperlipidemia Insomnia Mixed anxiety depressive disorder Myocardial infarction Obstructive sleep apnea Open wound Perforated diverticulum of large intestine Peristomal hernia Rectal pain Tobacco abuse Vitamin B12 deficiency Vitamin D deficiency Wears glasses Wound, open, scalp with complication Home Medications acetaminophen 650 mg PO Q6H PRN PRN 08/02/16 [History Last Taken Unknown] hnfsxbys-hfw-yyul fum-folic ac 1 tab PO DAILY 11/13/16 [History Last Taken Un known] oxybutynin chloride 5 mg PO DAILY 08/24/21 [History Last Taken Unknown] metoclopramide HCl 5 mg tablet 5 mg PO BID #60 tab 01/11/22 [Rx Last Taken Unknown] albuterol sulfate INHALATION PRN 02/01/22 [History Last Taken Unknown] linaclotide [Linzess] See Rx Instructions .ROUTE .COMPLEX 02/01/22 [History Last Taken Unknown] pantoprazole 40 mg PO DAILY 02/01/22 [History Last Taken Unknown] Allergy/AdvReac Type Severity Reaction Status Date / Time hydromorphone [From Dilaudid] Allergy Unknown Unknown Verified 02/01/22 05:54 levofloxacin [From Levaquin] Allergy Hives Verified 02/01/22 05:54 Penicillins Allergy Hives Verified 02/01/22 05:54 Family History Mother No problems noted. Surgical History History of bilateral knee replacement History of cardiac catheterization History of esophagogastroduodenoscopy (EGD) History of tonsillectomy S/P cataract surgery S/P colostomy Social History Smoking Status: Former smoker second hand exposure: No alcohol intake: never substance use type: does not use caffeine: Yes what type of physical activity do you participate in: none frequency: does not exercise seatbelt use: always ROS Constitutional Constitutional: Reports fatigue, malaise and weakness; Denies anorexia, chills or fever(s) Eyes Eyes: Denies change in vision ENT HEENT: Denies dysphagia or headache(s) Cardiovascular Cardiovascular: Denies chest pain, dyspnea on exertion, lightheadedness, orthopnea, palpitations, paroxysmal nocturnal dyspnea or rapid heart rate Respiratory/Chest Respiratory/Chest: Denies cough, dyspnea, productive cough, shortness of breath at rest, shortness of breath with exertion or wheezing Gastrointestinal Gastrointestinal: Reports abdominal pain and nausea; Denies constipation, diarrhea, dyspepsia or vomiting Genitourinary Genitourinary: Denies burning urination or dysuria Musculoskeletal Musculoskeletal: Denies back pain, joint stiffness or joint swelling Neurologic Neurologic: Denies confusion, dizziness, focal weakness or headache(s) Psychiatric Psychiatric: Denies anxiety Vital Signs Vital Signs Vital Signs: 02/01/22 05:51 02/01/22 08:10 02/01/22 08:53 Temperature 98.1 F Temperature Source Oral Pulse Rate 53 L 68 68 Respiratory Rate 18 14 18 Respiratory Pattern Normal Blood Pressure 185/113 H 157/87 H Blood Pressure Mean 137 110 Pulse Ox 97 96 Oxygen Delivery Method Room Air Room Air 02/01/22 10:11 02/01/22 13:02 02/01/22 14:50 Temperature 98.8 F Temperature Source Temporal Pulse Rate 65 58 L 50 L Respiratory Rate 14 18 18 Respiratory Pattern Blood Pressure 178/91 H 135/88 H 158/60 H Blood Pressure Mean 120 103 92 Pulse Ox 95 94 94 Oxygen Delivery Method Room Air Room Air Room Air Weight Weight: 100 lb 1.438 oz Body Mass Index (BMI) 19.5 Physical Exam Const alert and oriented x3 Constitutional Narrative: frail General Appearance: cooperative HEENT normocephalic and head/scalp atraumatic HEENT Narrative: dry oral mucosa, NG tube in situ Eyes PERRL, EOMs intact bilaterally and conjunctivae normal Neck no lymphadenopathy and supple Resp normal respiratory effort, no retractions, no use of accessory muscles and clear to auscultation bilaterally Cardio regular rate, regular rhythm, S1 normal heart sound and no murmurs GI GI Narrative: abdomen soft, moderate generalised tenderness, no guarding or rebound tenderness. Has colostomy bag in place. Extremity normal to inspection, full ROM and no clubbing, cyanosis or edema Peripheral Pulses: Yes pulses 2+ throughout Skin no rashes or lesions noted Neuro oriented x3, CN's II-XII intact bilaterally and moves all extremities Sensorium / Orientation: alert Psych affect normal Results Lab / Micro Data Result Diagrams: 02/01/22 05:58 02/01/22 05:58 Labs: Laboratory Results - last 24 hr 02/01/22 05:58: WBC 9.2, RBC 5.79 H, Hgb 13.9, Hct 43.6, MCV 75.3 L, MCH 24.0 L, MCHC 31.9 L, RDW Std Deviation 42.7, RDW Coeff of Travis 15.9 H, Plt Count 489 H, MPV 9.7, Immature Gran % (Auto) 0.400, Neut % (Auto) 65.3, Lymph % (Auto) 25.3, Mccreary % (Auto) 8.0, Eos % (Auto) 0.9, Baso % (Auto) 0.1, Absolute Neuts (auto) 6.0, Absolute Lymphs (auto) 2.34, Nucleated RBC % 0 02/01/22 05:58: Sodium 137, Potassium 4.2, Chloride 107, Carbon Dioxide 26.0, Anion Gap 4 L, BUN 21 H, Creatinine 0.84, Estim Creat Clear Calc 39.56, Est GFR (MDRD) Af Amer 85, Est GFR (MDRD) Non-Af 70, BUN/Creatinine Ratio 25.1 H, Gl ucose 201 H, Calcium 10.4 H, Total Bilirubin 0.70, AST 20, ALT 28, Alkaline Phosphatase 80, Troponin I High Sens 7, Total Protein 7.2, Albumin 3.4, Globulin 3.8, Albumin/Globulin Ratio 0.9, Lipase 31 L 02/01/22 06:20: Lactic Acid 1.4 02/01/22 08:14: PT 13.3, INR 1.1, APTT 25.3 02/01/22 08:14: Blood Type O POSITIVE, Antibody Screen NEGATIVE 02/01/22 08:42: Urine Color Yellow, Urine Clarity Clear, Urine pH 6.5, Ur Specific [place] 1.010, Urine Protein 15 H, Urine Glucose (UA) Normal, Urine Ketones Negative, Urine Occult Blood Negative, Urine Nitrite Negative, Urine Bilirubin Negative, Urine Urobilinogen Normal, Ur Leukocyte Esterase Negative, Urine RBC 0 SEEN, Urine WBC 0 SEEN, Ur Squamous Epith Cells 0 SEEN, Urine Bacte suni 0 SEEN, Urine Mucus 0 SEEN Micro: Microbiology 02/01/22 08:05 Nasal Secretion SARS-CoV-2 Antigen (Rapid) - Final Radiology Impression Abdomen/Pelvis CT 02/01/22 06:06 IMPRESSION: 1. Small pneumoperitoneum, concerning for bowel perforation/ruptured viscus. 2. Redemonstration of large anterior abdominal wall defect containing bowel loops and postsurgical changes, as detailed above. 3. Small free fluid. 4. Small pericardial effusion. 5. Mild gallbladder wall thickening. 6. Nonobstructive left nephrolithiasis. No hydroureteronephrosis. 7. 12 mm pancreatic tail cyst, can further characterized with nonemergent MR abdomen with contrast. Electronically Signed: Maycol Coleman MD at 7:48 EDT , ADDENDUM: 02/01/22 0808 IMPRESSION: 1. Small pneumoperitoneum, concerning for bowel perforation/ruptured viscus. 2. Redemonstration of large anterior abdominal wall defect containing bowel loops and postsurgical changes, as detailed above. 3. Small free fluid. 4. Small pericardial effusion. 5. Mild gallbladder wall thickening. 6. Nonobstructive left nephrolithiasis. No hydroureteronephrosis. 7. 12 mm pancreatic tail cyst, can further characterized with nonemergent MR abdomen with contrast. N.B. : Dr. Edmund MD, confirmed on 02/01/2022 08:02:01 (ET) that the healthcare facility has received the radiology report. Electronically Signed: Maycol Coleman MD at 7:48 EDT , Chest X-Ray 02/01/22 08:12 IMPRESSION: Fundus suggestive of linear atelectasis at the left lung base. I suspect a small amount of free intraperitoneal air. Electronically Signed: Sreekanth Kenney MD at 9:39 EDT , KUB X-Ray 02/01/22 08:22 IMPRESSION: The tip of the nasogastric tube is in the body of the stomach. Electronically Signed: Sreekanth Kenney MD at 9:39 EDT , Assessment & Plan Assessment/Plan (1) Pneumoperitoneum of unknown etiology: (2) Abdominal pain: PLAN: #Abdominal pain due to pneumoperitoneum * admit to med surg * she has an NG tube in situ * CT abdomen showed pneumoperitoneum * she does have an extensive history of abdominal surgeries * consult GI; per ED physician who discussed patient with GI, patient to have gastrograffin study to determine site of leak. * keep NPO * hydrate gently with IVF * she had an EGD and colonoscoy in August 2021 which showed a moderate Schatzki ring, stenosed Bilroth I gastroduodenostomy with erosion, erythema and friable mucosa with hemorrhagic appearance and intact staple line. This was dilated. She also has multiple wounds and jejunal ulcers with visible vessel which was treated. Colonoscopy showed redundant colon with patent end sigmoid colostomy characterized by ulceration and mild stenosis. * started on IV cefotetan in the ED; will continue * #History of bariatric surgery * Had Rayray-en-Y surgery in 2015 for hiatal hernia and severe GERD. 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 She still does have a large abdominal wall hernia. * #Abdominal wall hernia * As have a large upper abdominal hernia as documented above as a sequelae of surgery. * has been deemed too high risk for surgery * follow up with general surgery on outpatient basis * DVT prophylaxis: lovenox Gi prophylaxis; PPI Code status: full code * Patient counseled extensively about different types of CODE STATUS including full code, DNR CCA and DNR CCA. Patient elects to be full code. * Total [id number] time 17 minutes. Charges/Coding Visit Charges Inpatient E&M: 77183 Init Hosp L3 Procedures Hospitalists Procedures: 54100 Advncd Care Plan 30 Min
[2022-02-01] MEDS: 0.9% Saline Lock 10 ML Syringe IV ×2 (15:49→16:01)
--- NOTE | 2022-02-01 15:54 | CASEMGMT ---
RN CM Face to Face with patient for initial transition planning/care coordination assessment. RN CM introduced self and role at [facility]. Patient lying in bed, alert and oriented, at bedside. Patient willing to participate in assessment and is able to answer all questions appropriately. Care providers, pharmacy, and demographics verified. Patient wishes to discharge home, denies need for home health at this time. Patient states she has no further needs or concerns at this time. CM to follow for discharge planning needs that may arise. PCP: Zbigniew Specialists: Friend, GI Preferred Pharmacy: [facility] retail Insurance: [facility] Dual, [place] Prescription Benefit: yes Living Will/HPOA: none LNOK: , daughter Living Arrangements: Patient lives with in a 2 story home with bed and bath on first floor. Ramp to enter the home. Patient states she is independent at home. Transportation: self, DME/HHC: Patient denies DME in the home. Patient has had [facility] HHC in the past. Patient has previously been to Rehab Unit. Disposition Plan: Patient to discharge home with family support and follow-up plans in place. Marcie RODRÍGUEZ, RN, CM
--- NOTE | 2022-02-01 16:23 | CON.PCM.SX_ITS ---
Assessment & Plan Assessment/Plan (1) History of Rayray-en-Y gastric bypass: (2) Abdominal pain: QUALIFIERS: Abdominal location: epigastric Qualified Code(s): R1 0.13 - Epigastric pain (3) Pneumoperitoneum of unknown etiology: PLAN: Findings suggest visceral perforation likely involving the gastric bypass [place] stomach area. There is tenderness notably on palpation and no fullness in the epigastrium. The focus of the small pneumoperitoneum bubbles are very close to the surgical jani seen previously in the stomach. Her most recent endoscopic evaluation has detected acute inflammatory changes in that area. In addition the patient has recently received steroids and has been receiving oral antibiotics both for pulmonary condition. This likely has aggravated her condition. Unfortunately she has a hostile surgical abdomen. She would not be a candidate for surgical exploration. She is markedly deconditioned chronically ill with significant medical comorbidities largely focused upon her chronic pulmonary disease. I discussed these findings with Dr. Shaffer. I recommended consultation with Dr. Blu Casanova who is been involved in this patient's care most recently. If indeed the patient has a gastroesophageal perforation or anastomotic perforation or gastric perforation possibly this could be temporized with an endoscopically placed stent. If that is not feasible locally then I have recommended to the michelle molina and family members tertiary referral. I did suggest to the patient and her daughter Melvi that clearly this presentation in light of the patient's current health status place hurts her at significant risk for poor outcome. The patient might want to consider hospice referral pending further GI evaluation. Unfortunately I do not have a surgical option for her. The patient's daughter notes that multiple previous locations have declined offering her a cholecystectomy because of her complex abdominal situation. She has had an opportunity to ask and have questions answered. At the time of my consultation GI consultation was pending. Copy:Dr. Carlos Manzanares M.D., F.A.C.S. HPI Consult Data Date of Consult: 02/01/22 HPI Narrative HPI Narrative: ANDREY DIEHL, is a 77 F who presents to the emergency room with a 2-day history of ever progressing abdominal pain. The patient's daughter Melvi works in the operating room and asked if I would assist with the care of her mother. Emergency room physician Dr. Bean also contacted me for consultation. At the time of the consultation I was involved in a 3-hour OR case. I then was able to catch up with the patient briefly in the emergency room and then subsequently at the floor at both patient and ER physician request. The patient has a fairly highly complex past history. Fortunately on this presentation her white blood cell count is 9.2 with a hemoglobin 13.9 hematocrit 43.6 and a platelet count of 489,000. BUN is 21 and creatinine 0.84. Liver functions tests essentially normal except for calcium of 10.4. Urinalysis not remarkable. She did have a CT scan performed and this suggested a small amount of pneumoperitoneum concentrated around the patient's Rayray-en-Y gastric bypass. Small amount of free fluid. There are some mild gallbladder wall thickening. Nonobstructive left nephrolithiasis. I have reviewed these imaging with and he concurs and believes that the focus of disease is based upon the gastric bypass area rather than some other loop of bowel. The patient has a very complicated past history of perforated diverticulitis followed up with a diverting sigmoid colostomy with subsequent abdominal wall dehiscence then treated with I believe a absorbable mesh with subsequent delayed granulation tissue which then was treated with split-thickness skin grafting. She essentially has absence of the majority of her abdominal wall. Over time she has had periods of right upper quadrant pain and suspicious thickening of the gallbladder wall. She has been seen by myself and by report she has been seen by specialist at the [facility] all surgeons declining repeat operation on the patient's abdomen due to the complexity of her previous surgical interventions and complex abdominal wall. In a similar fashion I have not recommended any attempt at repairing her her ventral hernia. Additional findings suggest that the patient has really not been eating well since her complicated colon surgery. She has been evaluated by Dr. Hurt Friend gastroenterology. On December 27, 2021 he assisted her with an upper endoscopy. There was felt to be abnormal motility of the esophagus. Gastric bypass was found. Gastric pouch normal size containing jani. Staple line appeared to be intact. The gastrojejunal anastomosis characterized by friable mucosa and severe stenosis. This was only transversed after dilatation. The anastomotic area had hemorrhage and had to be treated with 5 cc of epinephrine injection. Additionally heater probe coagulation was performed. Tissue was then reapproximated with multiple clips. Additionally there was severe stenosis found in the stomach that was transverse with a TTS dilator through the scope and dilated to 20 mm. That showed moderate luminal improvement. Hemorrhagic gastropathy identified. The patient previously had a colonoscopy on August 29, 2021 showing a patent end sigmoid colostomy there was ulceration and mild stenosis. Of additional note is that prior to this emergency room prep presentation approximately 10 days ago the patient was felt to have bronchitis and so per Dr. Coy she was treated with steroids on 2 separate occasions within the past 2 weeks. She also was treated with oral antibiotics she simply cannot remember the type at the moment Her previous history May 29, 2016 laparoscopic Rayray-en-Y gastric bypass due to hiatal hernia and severe GERD at [facility]. June 28, 2016 readmitted with a perforated sigmoid diverticulitis had to have an open colectomy and end colostomy. She was taken back to surgery on July 06 because of a parastomal hernia she was taken back to surgery on July 16 because of evisceration and had mesh placed. She subsequently had granulation tissue with I then assisted her with placing a split-thickness skin graft over it took to get complete healing though she has loss of domain of her abdomen. [facility] Medical History Abdominal pain Abdominal pain Acute severe exacerbation of asthma Allergic rhinitis due to allergen Anastomotic ulcer Asthma Atrial fibrillation with rapid ventricular response CAD (coronary artery disease) Congestive heart failure Constipation COPD (chronic obstructive pulmonary disease) Depression Dysphagia Easy bruising Failure to thrive in adult Former smoker Frequent falls Gastroparesis GERD (gastroesophageal reflux disease) Hiatal hernia History of IBS History of irregular heartbeat Hyperlipidemia Insomnia Mixed anxiety depressive disorder Myocardial infarction Obstructive sleep apnea Open wound Perforated diverticulum of large intestine Peristomal hernia Rectal pain Tobacco abuse Vitamin B12 deficiency Vitamin D deficiency Wears glasses Wound, open, scalp with complication Home Medications acetaminophen 650 mg PO Q6H PRN PRN 08/02/16 [History Last Taken Unknown] [id number]-[id number] fum-folic ac 1 tab PO DAILY 11/13/16 [History Last Taken Unknown] oxybutynin chloride 5 mg PO DAILY 08/24/21 [History Last Taken Unknown] metoclopramide HCl 5 mg tablet 5 mg PO BID #60 tab 01/11/22 [Rx Last Taken Unknown] albuterol sulfate INHALATION PRN 02/01/22 [History Last Taken Unknown] linaclotide [Linzess] See Rx Instructions .ROUTE .COMPLEX 02/01/22 [History Last Taken Unknown] pantoprazole 40 mg PO DAILY 02/01/22 [History Last Taken Unknown] Allergy/AdvReac Type Severity Reaction Status Date / Time hydromorphone [From Dilaudid] Allergy Unknown Unknown Verified 02/01/22 05:54 levofloxacin [From Levaquin] Allergy Hives Verified 02/01/22 05:54 Penicillins Allergy Hives Verified 02/01/22 05:54 Family History Mother No problems noted. Surgical History History of bilateral knee replacement History of cardiac catheterization History of esophagogastroduodenoscopy (EGD) History of tonsillectomy S/P cataract surgery S/P colostomy Social History Smoking Status: Former smoker second hand exposure: No alcohol intake: never substance use type: does not use caffeine: Yes what type of physical activity do you participate in: none frequency: does not exercise seatbelt use: always Physical Exam Const alert Constitutional Narrative: Patient appears to be uncomfortable, she has lost a significant amount of weight since my previous interaction with her, appears chronically and acutely ill Nutritional Appearance: underweight HEENT normocephalic Eyes PERRL Chest inspection of chest normal Resp Resp Narrative: Diminished in the bases, clear in the apices Cardio Rate: regular rate Rhythm: regular rhythm GI GI Narrative: Markedly tender in the epigastrium and left upper quadrant with rebound and fullness/mass suspected. Permanent stoma left lower quadrant. Remainder the abdomen is markedly soft. Bowel sounds present Palpation: soft Extremity no calf tenderness Neuro oriented x3 Lab / Micro Data Result Diagrams: 02/01/22 05:58 02/01/22 05:58 Labs: Laboratory Results - last 24 hr 02/01/22 05:58: WBC 9.2, RBC 5.79 H, Hgb 13.9, Hct 43.6, MCV 75.3 L, MCH 24.0 L, MCHC 31.9 L, RDW Std Deviation 42.7, RDW Coeff of [place] 15.9 H, Plt Count 489 H, MPV 9.7, Immature Gran % (Auto) 0.400, Neut % (Auto) 65.3, Lymph % (Auto) 25.3, [place] % (Auto) 8.0, Eos % (Auto) 0.9, Baso % (Auto) 0.1, Absolute Neuts (auto) 6.0, Absolute Lymphs (auto) 2.34, Nucleated RBC % 0 02/01/22 05:58: Sodium 137, Potassium 4.2, Chloride 107, Carbon Dioxide 26.0, Anion Gap 4 L, BUN 21 H, Creatinine 0.84, Estim Creat Clear Calc 39.56, Est GFR (MDRD) Af Amer 85, Est GFR (MDRD) Non-Af 70, BUN/Creatinine Ratio 25.1 H, Glucose 201 H, Calcium 10.4 H, Total Bilirubin 0.70, AST 20, ALT 28, Alkaline Phosphatase 80, Troponin I High Sens 7, Total Protein 7.2, Albumin 3.4, Globulin 3.8, Albumin/Globulin Ratio 0.9, Lipase 31 L 02/01/22 06:20: Lactic Acid 1.4 02/01/22 08:14: PT 13.3, INR 1.1, APTT 25.3 02/01/22 08:14: Blood Type O POSITIVE, Antibody Screen NEGATIVE 02/01/22 08:42: Urine Color Yellow, Urine Clarity Clear, Urine pH 6.5, Ur Specif ic [place] 1.010, Urine Protein 15 H, Urine Glucose (UA) Normal, Urine Ketones Negative, Urine Occult Blood Negative, Urine Nitrite Negative, Urine Bilirubin Negative, Urine Urobilinogen Normal, Ur Leukocyte Esterase Negative, Urine RBC 0 SEEN, Urine WBC 0 SEEN, Ur Squamous Epith Cells 0 SEEN, Urine Bacteria 0 SEEN, Urine Mucus 0 SEEN Micro: Microbiology 02/01/22 08:05 Nasal Secretion SARS-CoV-2 Antigen (Rapid) - Final Radiology Impression Abdomen/Pelvis CT 02/01/22 06:06 IMPRESSION: 1. Small pneumoperitoneum, concerning for bowel perforation/ruptured viscus. 2. Redemonstration of large anterior abdominal wall defect containing bowel loops and postsurgical changes, as detailed above. 3. Small free fluid. 4. Small pericardial effusion. 5. Mild gallbladder wall thickening. 6. Nonobstructive left nephrolithiasis. No hydroureteronephrosis. 7. 12 mm pancreatic tail cyst, can further characterized with nonemergent MR abdomen with contrast. Electronically Signed: Maycol Coleman MD at 7:48 EDT , ADDENDUM: 02/01/22 0808 IMPRESSION: 1. Small pneumoperitoneum, concerning for bowel perforation/ruptured viscus. 2. Redemonstration of large anterior abdominal wall defect containing bowel loops and postsurgical changes, as detailed above. 3. Small free fluid. 4. Small pericardial effusion. 5. Mild gallbladder wall thickening. 6. Nonobstructive left nephrolithiasis. No hydroureteronephrosis. 7. 12 mm pancreatic tail cyst, can further characterized with nonemergent MR abdomen with contrast. N.B. : Dr. Edmund MD, confirmed on 02/01/2022 08:02:01 (ET) that the healthcare facility has received the radiology report. Electronically Signed: Maycol Coleman MD at 7:48 EDT , Chest X-Ray 02/01/22 08:12 IMPRESSION: Fundus suggestive of linear atelectasis at the left lung base. I suspect a small amount of free intraperitoneal air. Electronically Signed: Sreekanth Kenney MD at 9:39 EDT , KUB X-Ray 02/01/22 08:22 IMPRESSION: The tip of the nasogastric tube is in the body of the stomach. Electronically Signed: Sreekanth Kenney MD at 9:39 EDT ,
--- NOTE | 2022-02-01 16:25 | EX.PCM.CON.G ---
HPI Consult Data Date of Consult: 02/01/22 HPI Narrative HPI Narrative: ANDREY DIEHL, is a 77 F who presents to the office yesterday (met with my nurse practioner) for the chief complaint of abdominal pain and bloating. She has a very complicated surgical history. She has a past medical history on 05/29/2016 underwent laparoscopic Rayray-en-y, rerouting of stomach, gastric bypass due to hiatal hernia, severe GERD, at [facility]. On 06/28/2016, readmitted to [facility] with perforated sigmoid diverticulum, underwent open colectomy with end colostomy. She had a CT scan abdomen pelvis on 10/23/2020-it showed a normal gastric bypass with a large anterior abdominal wall hernia containing part of the colon and small bowel loops without evidence of incarceration or bowel obstruction. She frequently gets mid uppergastric pain causing discomfort with periodic nausea that causes her to try to throw up. She states her stomach empties in 15-20 minutes. She takes linzess for a lazy bowel, and this usually works but sometimes makes her very crampy. She also complains of increased discomfort located in her rectum. Alleviates stomach symptoms with glass of milk, peptobismol, laying in recliner, abdomen is becoming distended since surgery for diverticulitis. Her diverticulitis surgery performed in 2016, with three surgeries performed in a short period of time. She has always suffered with chronic constipation even prior to her multiple bowel surgeries. Her SYmptoms today are related as terrible with horrible pains in LLQ that she has been taking oxycodone to help manage. Has started Linzess which has helped some - one good BM on Friday and the rest of the time like a dry paste. Last visit 07/17/21 with abdominal pain, bloating and constipation. CIC addressed with d/c of linzess and initiation of aloe vera pills and mineral oil. Abdominal pain believed to be related to bacterial over growth, distention and CIC combined causing increased pressure. She has a large abdominal wall defect also noted. Doxycycline started to address bacterial overgrowth. After visit she called clinic to report increased discomfort and worsening constipation and mag citrate ordered was helpful. She later came to the hospital in person to report that she was having distention and continued pain. Abdominal Ct scan ordered. The scan reports a perforation possibly at the level of the gastric jejunal anastomosis. Currently at this time she has NG tube in place for decompression and is getting pain medicine. [facility] Medical History Abdominal pain Abdominal pain Acute severe exacerbation of asthma Allergic rhinitis due to allergen Anastomotic ulcer Asthma Atrial fibrillation with rapid ventricular response CAD (coronary artery disease) Congestive heart failure Constipation COPD (chronic obstructive pulmonary disease) Depression Dysphagia Easy bruising Failure to thrive in adult Former smoker Frequent falls Gastroparesis GERD (gastroesophageal reflux disease) Hiatal hernia History of IBS History of irregular heartbeat Hyperlipidemia Insomnia Mixed anxiety depressive disorder Myocardial infarction Obstructive sleep apnea Open wound Perforated diverticulum of large intestine Peristomal hernia Rectal pain Tobacco abuse Vitamin B12 deficiency Vitamin D deficiency Wears glasses Wound, open, scalp with complication Home Medications acetaminophen 650 mg PO Q6H PRN PRN 08/02/16 [History Last Taken Unknown] nmcexkyz-goe-tiiy fum-folic ac 1 tab PO DAILY 11/13/16 [History Last Taken Unknown] oxybutynin chloride 5 mg PO DAILY 08/24/21 [History Last Taken Unknown] metoclopramide HCl 5 mg tablet 5 mg PO BID #60 tab 01/11/22 [Rx Last Taken Unknown] albuterol sulfate INHALATION PRN 02/01/22 [History Last Taken Unknown] linaclotide [Linzess] See Rx Instructions .ROUTE .COMPLEX 02/01/22 [History Last Taken Unknown] pantoprazole 40 mg PO DAILY 02/01/22 [History Last Taken Unknown] Allergy/AdvReac Type Severity Reaction Status Date / Time hydromorphone [From Dilaudid] Allergy Unknown Unknown Verified 02/01/22 05:54 levofloxacin [From Levaquin] Allergy Hives Verified 02/01/22 05:54 Penicillins Allergy Hives Verified 02/01/22 05:54 Family History Mother No problems noted. Surgical History History of bilateral knee replacement History of cardiac catheterization History of esophagogastroduodenoscopy (EGD) History of tonsillectomy S/P cataract surgery S/P colostomy Social History Smoking Status: Former smoker second hand exposure: No alcohol intake: never substance use type: does not use caffeine: Yes what type of physical activity do you participate in: none frequency: does not exercise seatbelt use: always ROS Gastrointestinal Gastrointestinal: Reports abdominal pain and bloating Physical Exam Const alert General Appearance: cooperative Orientation / Consciousness: oriented to person HEENT hearing grossly normal bilaterally Head and Scalp: normal to inspection Face and Sinus: face symmetric Nose: external nose normal Mouth: oral and palatal mucosa normal Eyes conjunctivae normal General Eye: normal appearance of both eyes Neck full ROM General: normal visual inspection Lymph Lymphatic: no lymphadenopathy noted Chest inspection of chest normal and palpation of chest normal Chest: symmetrical chest wall rise Resp normal respiratory effort Effort and Inspection: able to speak in complete sentences Cardio regular rate GI non-distended Percussion: normal to percussion Rectal Exam: deferred Neuro Speech: speech normal Gait (Neuro): normal gait Lab / Micro Data Result Diagrams: 02/01/22 05:58 02/01/22 05:58 Labs: Laboratory Results - last 24 hr 02/01/22 05:58: WBC 9.2, RBC 5.79 H, Hgb 13.9, Hct 43.6, MCV 75.3 L, MCH 24.0 L, MCHC 31.9 L, RDW Std Deviation 42.7, RDW Coeff of [place] 15.9 H, Plt Count 489 H, MPV 9.7, Immature Gran % (Auto) 0.400, Neut % (Auto) 65.3, Lymph % (Auto) 25.3, [place] % (Auto) 8.0, Eos % (Auto) 0.9, Baso % (Auto) 0.1, Absolute Neuts (auto) 6.0, Absolute Lymphs (auto) 2.34, Nucleated RBC % 0 02/01/22 05:58: Sodium 137, Potassium 4.2, Chloride 107, Carbon Dioxide 26.0, Anion Gap 4 L, BUN 21 H, Creatinine 0.84, Estim Creat Clear Calc 39.56, Est GFR (MDRD) Af Amer 85, Est GFR (MDRD) Non-Af 70, BUN/Creatinine Ratio 25.1 H, Glucose 201 H, Calcium 10.4 H, Total Bilirubin 0.70, AST 20, ALT 28, Alkaline Phosphatase 80, Troponin I High Sens 7, Total Protein 7.2, Albumin 3.4, Globulin 3.8, Albumin/Globulin Ratio 0.9, Lipase 31 L 02/01/22 06:20: Lactic Acid 1.4 02/01/22 08:14: PT 13.3, INR 1.1, APTT 25.3 02/01/22 08:14: Blood Type O POSITIVE, Antibody Screen NEGATIVE 02/01/22 08:42: Urine Color Yellow, Urine Clarity Clear, Urine pH 6.5, Ur Specific [place] 1.010, Urine Protein 15 H, Urine Glucose (UA) Normal, Urine Ketones Negative, Urine Occult Blood Negative, Urine Nitrite Negative, Urine Bilirubin Negative, Urine Urobilinogen Normal, Ur Leukocyte Esterase Negative, Urine RBC 0 SEEN, Urine WBC 0 SEEN, Ur Squamous Epith Cells 0 SEEN, Urine Bacteria 0 SEEN, Urine Mucus 0 SEEN Micro: Microbiology 02/01/22 08:05 Nasal Secretion SARS-CoV-2 Antigen (Rapid) - Final Radiology Impression Abdomen/Pelvis CT 02/01/22 06:06 IMPRESSION: 1. Small pneumoperitoneum, concerning for bowel perforation/ruptured viscus. 2. Redemonstration of large anterior abdominal wall defect containing bowel loops and postsurgical changes, as detailed above. 3. Small free fluid. 4. Small pericardial effusion. 5. Mild gallbladder wall thickening. 6. Nonobstructive left nephrolithiasis. No hydroureteronephrosis. 7. 12 mm pancreatic tail cyst, can further characterized with nonemergent MR abdomen with contrast. Electronically Signed: Maycol Coleman MD at 7:48 EDT , ADDENDUM: 02/01/22 0808 IMPRESSION: 1. Small pneumoperitoneum, concerning for bowel perforation/ruptured viscus. 2. Redemonstration of large anterior abdominal wall defect containing bowel loops and postsurgical changes, as detailed above. 3. Small free fluid. 4. Small pericardial effusion. 5. Mild gallbladder wall thickening. 6. Nonobstructive left nephrolithiasis. No hydroureteronephrosis. 7. 12 mm pancreatic tail cyst, can further characterized with nonemergent MR abdomen with contrast. N.B. : Dr. Edmund MD, confirmed on 02/01/2022 08:02:01 (ET) that the healthcare facility has received the radiology report. Electronically Signed: Maycol Coleman MD at 7:48 EDT , Chest X-Ray 02/01/22 08:12 IMPRESSION: Fundus suggestive of linear atelectasis at the left lung base. I suspect a small amount of free intraperitoneal air. Electronically Signed: Sreekanth Kenney MD at 9:39 EDT , KUB X-Ray 02/01/22 08:22 IMPRESSION: The tip of the nasogastric tube is in the body of the stomach. Electronically Signed: Sreekanth Kenney MD at 9:39 EDT , Assessment & Plan Assessment/Plan (1) Pneumoperitoneum of unknown etiology: PLAN: And Gastrografin through the NG tube to possibly identify the leak and abnormality. It may be amendable to just bowel rest, TPN and conservative measures without having to do an upper endoscopy. I would like to know where the 2 leak is at to see if she needs to be stented or can be closed with a clip. The family knows that she is very fragile inside and out. Her albumin is 3.4, platelet count is normal and hemoglobin is normal. These are good signs for her nutrition if she would need an endoscopic procedure. I had a long talk with her and her daughter and they do not want hospice at this time. Charges/Coding Visit Charges Inpatient E&M: 69153 Init Hosp L3
[2022-02-01] MEDS: 0.9% Normal Saline 1,000 ML 125 ML IV (16:47)
[2022-02-01] MEDS: Morphine 2 MG/ML Syringe IV ×3 (17:31→23:33)
[2022-02-01] MEDS: metroNIDAZOLE 500 MG/100 ML BAG 100 MG IV ×2 (17:49→22:45)
--- NOTE | 2022-02-01 17:57 | EKG12_ITS ---
Test Reason : IRREG Blood Pressure : / mmHG Vent. Rate : 083 BPM Atrial Rate : 083 BPM P-R Int : 170 ms QRS Dur : 080 ms QT Int : 362 ms P-R-T Axes : 068 068 038 degrees QTc Int : 425 ms Sinus rhythm with Premature atrial complexes Otherwise normal ECG When compared with ECG of 01-FEB-2022 06:32, MANUAL COMPARISON REQUIRED, DATA IS UNCONFIRMED Confirmed by TAYLOR HASKINS, MAMADOU ([id number]), video editor DAMIÁN GRIJALVA ([id number]) on 02/07/2022 12:57:47 PM Referred By: RIGOBERTO Confirmed By:MAMADOU VAZQUEZ MD
[2022-02-01 18:25] LABS: Magnesium 2.4 mg/dL (1.6-2.6)
[2022-02-01] MEDS: hydrALAZINE 20 MG/ML Vial 10 MG IV (22:45)
[2022-02-02] VITALS (14 sets, daily range): BP systolic 126–167; BP diastolic 76–104; PULSE 79–138; RESP 16–18; TEMP 36.8–37.3; O2SAT 93–94
[2022-02-02] MEDS: Morphine 2 MG/ML Syringe IV ×7 (03:47→21:52)
[2022-02-02] MEDS: 0.9% Normal Saline 1,000 ML 125 ML IV (03:47)
[2022-02-02] MEDS: metroNIDAZOLE 500 MG/100 ML BAG 100 MG IV ×3 (05:47→21:20)
--- NOTE | 2022-02-02 07:09 | PCM.PN.SRG ---
Subjective Subjective Patient states that she has not mobilized since hospitalization. She continues to complain of left upper quadrant pain. She has just received some medication. Objective Data Objective Data Vital Signs: Vital Signs Temp Pulse Resp BP Pulse Ox 99.2 F H 96 18 167/85 H 93 02/02/22 02:35 02/02/22 03:00 02/02/22 02:35 02/02/22 02:35 02/02/22 02:35 Oxygen Delivery Method Room Air Weight: 97 lb 7.109 oz Body Mass Index (BMI) 19.0 Intake & Output: Intake and Output for Last 24 Hours 01/31/22 02/01/22 02/02/22 23:59 23:59 23:59 Intake Total 1270.42 / 1270.42 799.58 / 799.58 Output Total 150 / 150 300 / 300 Balance 1120.42 / 1120.42 499.58 / 499.58 Lab / Micro Data Result Diagrams: 02/01/22 05:58 02/01/22 05:58 Labs: Laboratory Results - last 24 hr 02/01/22 08:14: PT 13.3, INR 1.1, APTT 25.3 02/01/22 08:14: Blood Type O POSITIVE, Antibody Screen NEGATIVE 02/01/22 08:42: Urine Color Yellow, Urine Clarity Clear, Urine pH 6.5, Ur Specific [place] 1.010, Urine Protein 15 H, Urine Glucose (UA) Normal, Urine Ketones Negative, Urine Occult Blood Negative, Urine Nitrite Negative, Urine Bilirubin Negative, Urine Urobilinogen Normal, Ur Leukocyte Esterase Negative, Urine RBC 0 SEEN, Urine WBC 0 SEEN, Ur Squamous Epith Cells 0 SEEN, Urine Bacteria 0 SEEN, Urine Mucus 0 SEEN 02/01/22 18:05: Magnesium 2.4 Micro: Microbiology 02/01/22 08:05 Nasal Secretion SARS-CoV-2 Antigen (Rapid) - Final Radiography Diagnostic Testing: Radiology Impression Abdomen/Pelvis CT 02/01/22 06:06 IMPRESSION: 1. Small pneumoperitoneum, concerning for bowel perforation/ruptured viscus. 2. Redemonstration of large anterior abdominal wall defect containing bowel loops and postsurgical changes, as detailed above. 3. Small free fluid. 4. Small pericardial effusion. 5. Mild gallbladder wall thickening. 6. Nonobstructive left nephrolithiasis. No hydroureteronephrosis. 7. 12 mm pancreatic tail cyst, can further characterized with nonemergent MR abdomen with contrast. Electronically Signed: Maycol Coleman MD at 7:48 EDT , ADDENDUM: 02/01/22 0808 IMPRESSION: 1. Small pneumoperitoneum, concerning for bowel perforation/ruptured viscus. 2. Redemonstration of large anterior abdominal wall defect containing bowel loops and postsurgical changes, as detailed above. 3. Small free fluid. 4. Small pericardial effusion. 5. Mild gallbladder wall thickening. 6. Nonobstructive left nephrolithiasis. No hydroureteronephrosis. 7. 12 mm pancreatic tail cyst, can further characterized with nonemergent MR abdomen with contrast. N.B. : Dr. Edmund MD, confirmed on 02/01/2022 08:02:01 (ET) that the healthcare facility has received the radiology report. Electronically Signed: Maycol Coleman MD at 7:48 EDT , Chest X-Ray 02/01/22 08:12 IMPRESSION: Fundus suggestive of linear atelectasis at the left lung base. I suspect a small amount of free intraperitoneal air. Electronically Signed: Sreekanth Kenney MD at 9:39 EDT , KUB X-Ray 02/01/22 08:22 IMPRESSION: The tip of the nasogastric tube is in the body of the stomach. Electronically Signed: Sreekanth Kenney MD at 9:39 EDT , Physical Exam Narrative Patient is alert aware of her situation in place Resp Resp Narrative: Splinting with respiration noted GI GI Narrative: Lower abdomen is soft nontender, epigastrium remains tender to palpation Assessment & Plan Assessment/Plan (1) History of Rayray-en-Y gastric bypass: PLAN: Gastric or gastro jejunostomy anastomotic leak. Unfortunately this patient is going to have to wait through the weekend in order to undergo the Gastrografin study. I have encouraged her to utilize her incentive spirometry and to initiate mobilization. Clinical exam appears stable from yesterday. We will add pantoprazole to her medication Adarsh Ibarra M.D., F.A.C.S.
[2022-02-02 07:11] LABS: Absolute Lymphocyte Count 1.12 X10^3/uL (0.83-4.51); Basophil# 0.06 X10^3/uL; Basophil% 0.2 % (0-1); Eosinophil# 0.03 X10^3/uL; Eosinophils% 0.1 % (0-5); Hematocrit 40.5 % (37-47); Hemoglobin 12.4 g/dL (12.0-15.0); Lymphocyte # 1.12 X10^3/ul (0.83-4.51); Lymphocyte % 3.4 % (19-41); Mean Corp Hgb Conc 30.6 g/dL (32-36); Mean Corpuscular Hgb 23.9 pg (27.0-32.0); Mean Platelet Vol. 9.7 fl (6.2-12.0); Monocyte# 2.26 X10^3/uL; Monocyte% 6.9 % (0-10); NRBC Flagged by Analyzer 0 % (0-5); Neutrophil # 29.02 X10^3/uL (2.7-7.7); Neutrophil % 88.7 % (47-70); POSITIVE COUNT YES; POSITIVE DIFFERENTIAL YES; Platelet Count 344 K/mm3 (150-450); RBC Distribution Width CV 16.3 % (11.6-14.6); Red Blood Count 5.19 M/mm3 (4.2-5.4)
[2022-02-02 07:17] LABS: Differential Indicated SCAN CRITERIA MET; White Blood Count 32.7 K/mm3 (4.4-11.0)
[2022-02-02 07:28] LABS: Anion Gap 5 (5-15); BUN 14 mg/dL (7-18); BUN/Creat Ratio 22.5 RATIO (10-20); Calcium,Total 9.7 mg/dL (8.5-10.1); Chloride 113 mmol/L (98-107); Creatinine, Serum 0.62 mg/dL (0.55-1.02); EST Glomerular Filtration Rate 99 mL/min (>60); Est Glom Filt Rate - Afr Amer 120 mL/min (>60); Estimated Creatinine Clearance 32.35 ml/min; Glucose 94 mg/dL (74-106); Potassium 3.9 mmol/L (3.5-5.1); Sodium Level 141 mmol/L (136-145)
[2022-02-02] MEDS: Enoxaparin 40 MG/0.4 ML Syringe SC (09:19)
--- NOTE | 2022-02-02 09:54 | PN_ITS ---
Subjective Subjective Patient denies any abdominal pain and she is more alert today. She is just very dehydrated. She is afebrile. Objective Data Objective Data Vital Signs: Vital Signs Temp Pulse Resp BP Pulse Ox 98.8 F 86 18 153/81 H 94 02/02/22 08:26 02/02/22 08:32 02/02/22 08:26 02/02/22 08:26 02/02/22 08:26 Oxygen Delivery Method Room Air Weight: 97 lb 7.109 oz Body Mass Index (BMI) 19.0 Intake & Output: Intake and Output for Last 24 Hours 01/31/22 02/01/22 02/02/22 23:59 23:59 23:59 Intake Total 1270.42 / 1270.42 1523.33 / 1523.33 Output Total 150 / 150 300 / 300 Balance 1120.42 / 1120.42 1223.33 / 1223.33 Lab / Micro Data Result Diagrams: 02/02/22 06:13 02/02/22 06:13 Labs: Laboratory Results - last 24 hr 02/01/22 18:05: Magnesium 2.4 02/02/22 06:13: WBC 32.7 H*, RBC 5.19, Hgb 12.4, Hct 40.5, MCV 78.0 L, MCH 23.9 L, MCHC 30.6 L, RDW Std Deviation 46.0 H, RDW Coeff of Travis 16.3 H, Plt Count 344, MPV 9.7, Immature Gran % (Auto) 0.700, Neut % (Auto) 88.7 H, Lymph % (Auto) 3.4 L, [place] % (Auto) 6.9, Eos % (Auto) 0.1, Baso % (Auto) 0.2, Absolute Neuts (auto) 29.0 H, Absolute Lymphs (auto) 1.12, Nucleated RBC % 0 02/02/22 06:13: Sodium 141, Potassium 3.9, Chloride 113 H, Carbon Dioxide 23.0, Anion Gap 5, BUN 14, Creatinine 0.62, Estim Creat Clear Calc 32.35, Est GFR (MDRD) Af Amer 120, Est GFR (MDRD) Non-Af 99, BUN/Creatinine Ratio 22.5 H, Glucose 94, Calcium 9.7 Micro: Microbiology 04/08/22 08:05 Nasal Secretion SARS-CoV-2 Antigen (Rapid) - Final Physical Exam Const alert General Appearance: cooperative Orientation / Consciousness: oriented to person HEENT hearing grossly normal bilaterally Head and Scalp: normal to inspection Face and Sinus: face symmetric Nose: external nose normal Mouth: oral and palatal mucosa normal Eyes conjunctivae normal General Eye: normal appearance of both eyes Neck full ROM General: normal visual inspection Lymph Lymphatic: no lymphadenopathy noted Chest inspection of chest normal and palpation of chest normal Chest: symmetrical chest wall rise Resp normal respiratory effort Effort and Inspection: able to speak in complete sentences Cardio regular rate GI non-distended Percussion: normal to percussion Rectal Exam: deferred Neuro Speech: speech normal Gait (Neuro): normal gait Assessment & Plan Assessment/Plan (1) Pneumoperitoneum of unknown etiology: PLAN: Recommend to check blood cultures due to the fact that her white blood cell count has increased to 32,000. I will order a repeat KUB and chest x-ray. She may need a repeat CAT scan. We are awaiting to do upper GI with small bowel follow-through with the use of Gastrografin however we cannot do it on the weekend. Patient still wants to pursue all aggressive measures at this time. Continue antibiotics as previously ordered. I will add Zosyn. Charges/Coding Visit Charges Inpatient E&M: 36019 Subs Hosp L2
--- NOTE | 2022-02-02 10:10 | RAD_ITS ---
HISTORY: perforated viscus. TECHNIQUE: XR Chest 1 View. EXAM TIME: 2022-02-02 09:56. # of images incl. paperwork: 1. COMPARISON:02/01/2022. FINDINGS: LINES/DEVICES: Nasogastric tube again extends to the stomach with the tip excluded from the [id number]. Suture and surgical clips in the upper abdomen. Decreased pneumoperitoneum. CARDIOMEDIASTINAL BORDERS: Stable with calcification of the aortic knob and cardiac valvular calcification noted. LUNGS: Mild left basilar opacity with elevation of the left hemidiaphragm. PLEURA: No pleural effusion or pneumothorax. RAD/Chest 1 View (Portable) IMPRESSION: Decreased pneumoperitoneum. Left basilar atelectasis or consolidation. at 1031 Reported and signed by: Omayra Rincon MD Electronically Signed: Omayra Rincon MD at 10:30 EDT ,
--- NOTE | 2022-02-02 10:15 | RAD_ITS ---
HISTORY: perforated viscus. TECHNIQUE: XR Abdomen 1 View. # of images incl. paperwork: 1. COMPARISON: 02/01/2022. FINDINGS: BOWEL GAS PATTERN: Nasogastric tube tip now in the left lower quadrant. Suture and surgical clips in the right upper quadrant. Gaseous distention and dilatation of bowel in the midabdomen with left lower quadrant colostomy noted. FREE AIR: Not assessed on supine view. SOFT TISSUES: Interval clearance of contrast from the urinary bladder. RAD/Abdomen Single View (Portable) IMPRESSION: Nasogastric tube tip now in the left lower quadrant, uncertain if within the stomach. Persistent gaseous distention of bowel in the midabdomen. at 1037 Reported and signed by: Omayra Rincon MD Electronically Signed: Omayra Rincon MD at 10:36 EDT ,
--- NOTE | 2022-02-02 10:50 | PN.HOSP_ITS ---
Subjective Subjective Patient seen and examined. She still complains of abdominal pain. She has no other complaints and review of systems otherwise negative. WBC is down to 32.7 today. She has otherwise remained hemodynamically stable. Objective Data Objective Data Vital Signs: Vital Signs Temp Pulse Resp BP Pulse Ox 98.8 F 86 18 153/81 H 94 02/02/22 08:26 02/02/22 08:32 02/02/22 08:26 02/02/22 08:26 02/02/22 08:26 Oxygen Delivery Method Room Air Weight: 97 lb 7.109 oz Body Mass Index (BMI) 19.0 Intake & Output: Intake and Output for Last 24 Hours 01/31/22 02/01/22 02/02/22 23:59 23:59 23:59 Intake Total 1270.42 / 1270.42 1778.33 / 1778.33 Output Total 150 / 150 300 / 300 Balance 1120.42 / 1120.42 1478.33 / 1478.33 Lab / Micro Data Result Diagrams: 02/02/22 06:13 02/02/22 06:13 Labs: Laboratory Results - last 24 hr 02/01/22 18:05: Magnesium 2.4 02/02/22 06:13: WBC 32.7 H*, RBC 5.19, Hgb 12.4, Hct 40.5, MCV 78.0 L, MCH 23.9 L, MCHC 30.6 L, RDW Std Deviation 46.0 H, RDW Coeff of Travis 16.3 H, Plt Count 344, MPV 9.7, Immature Gran % (Auto) 0.700, Neut % (Auto) 88.7 H, Lymph % (Auto) 3.4 L, Christian % (Auto) 6.9, Eos % (Auto) 0.1, Baso % (Auto) 0.2, Absolute Neuts (auto) 29.0 H, Absolute Lymphs (auto) 1.12, Nucleated RBC % 0 02/02/22 06:13: Sodium 141, Potassium 3.9, Chloride 113 H, Carbon Dioxide 23.0, Anion Gap 5, BUN 14, Creatinine 0.62, Estim Creat Clear Calc 32.35, Est GFR (MDRD) Af Amer 120, Est GFR (MDRD) Non-Af 99, BUN/Creatinine Ratio 22.5 H, Glucose 94, Calcium 9.7 Micro: Microbiology 02/01/22 08:05 Nasal Secretion SARS-CoV-2 Antigen (Rapid) - Final Radiography Diagnostic Testing: Radiology Impression Chest X-Ray 02/02/22 10:10 IMPRESSION: Decreased pneumoperitoneum. Left basilar atelectasis or consolidation. at 1031 Reported and signed by: Omayra Rincon MD Electronically Signed: Omayra Rincon MD at 10:30 EDT , KUB X-Ray 02/02/22 10:15 IMPRESSION: Nasogastric tube tip now in the left lower quadrant, uncertain if within the stomach. Persistent gaseous distention of bowel in the midabdomen. at 1037 Reported and signed by: Omayra Rincon MD Electronically Signed: Omayra Rincon MD at 10:36 EDT , Physical Exam Const alert and oriented x3 Constitutional Narrative: frail General Appearance: cooperative Exam Limitations: no limitations Nutritional Appearance: cachectic HEENT normocephalic and head/scalp atraumatic Head and Scalp: normocephalic Mouth: dry mucous membranes Eyes PERRL, EOMs intact bilaterally and conjunctivae normal Neck no lymphadenopathy and supple Resp normal respiratory effort, no retractions, no use of accessory muscles and clear to auscultation bilaterally Cardio regular rate, regular rhythm, S1 normal heart sound, S2 normal heart sound and no murmurs GI GI Narrative: abdomen soft, moderate generalised tenderness, no guarding or rebound tenderness. Has colostomy bag in place. large abdominal wall hernia Extremity normal to inspection, full ROM and no clubbing, cyanosis or edema Peripheral Pulses: Yes pulses 2+ throughout Skin no rashes or lesions noted Neuro oriented x3, CN's II-XII intact bilaterally and moves all extremities Sensorium / Orientation: awake and alert Psych Psych Narrative: looks uncomfortable Assessment & Plan Assessment/Plan (1) Pneumoperitoneum of unknown etiology: (2) Abdominal pain: QUALIFIERS: Abdominal location: epigastric Qualified Code(s): R10.13 - Epigastric pain PLAN: #Abdominal pain due to pneumoperitoneum * pneumoperitoneum thought to be due to gastric or gastrojejunostomy anastomotic leak * wbc has trended up to 32.7 today. * GI on board. General surgery also on board * she has an NG tube in situ * CT abdomen showed pneumoperitoneum * being hydrated with IVF * for gastrograffin study on friday; cannot be done today. This will hold GI know exactly with the leak is * she had an EGD and colonoscoy in August 2021 which showed a moderate Schatzki ring, stenosed Bilroth I gastroduodenostomy with erosion, erythema and friable mucosa with hemorrhagic appearance and intact staple line. This was dilated. She also has multiple wounds and jejunal ulcers with visible vessel which was treated. Colonoscopy showed redundant colon with patent end sigmoid colostomy characterized by ulceration and mild stenosis. * on IV flagyl and azithromycin * #History of bariatric surgery * Had Rayray-en-Y surgery in 2016 for hiatal hernia and severe GERD. 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 * She still does have a large abdominal wall hernia. * #Abdominal wall hernia * As have a large upper abdominal hernia as documented above as a sequelae of surgery. * has been deemed too high risk for surgery * follow up with general surgery on outpatient basis * DVT prophylaxis: lovenox Gi prophylaxis; PPI Code status: full code * Charges/Coding Visit Charges Inpatient E&M: 14882 [facility] Hosp L3
[2022-02-02 10:52] LABS: Differential Comment SCANNED
[2022-02-02] MEDS: 0.9% Normal Saline 1,000 ML 150 ML IV ×2 (13:19→21:09)
--- NOTE | 2022-02-02 19:16 | EKG12_ITS ---
Test Reason : RYTHM CHANGE Blood Pressure : / mmHG Vent. Rate : 142 BPM Atrial Rate : 120 BPM P-R Int : 000 ms QRS Dur : 090 ms QT Int : 246 ms P-R-T Axes : 000 053 -89 degrees QTc Int : 378 ms Atrial fibrillation with premature ventricular or aberrantly conducted complexes ST & T wave abnormality, consider anterolateral ischemia or digitalis effect Abnormal ECG When compared with ECG of 01-FEB-2022 17:41, MANUAL COMPARISON REQUIRED, DATA IS UNCONFIRMED Confirmed by CY HASKINS, WILLIAM ([id number]), general expeditor DAMIÁN GRIJALVA ([id number]) on 02/08/2022 1:07:39 PM Referred By: RIGOBERTO Confirmed By:BIMAL BENOIT MD
[2022-02-02] MEDS: Metoprolol Tartrate 5 MG/5 ML Vial IV ×2 (19:58→21:25)
[2022-02-03] VITALS (16 sets, daily range): BP systolic 115–155; BP diastolic 58–93; PULSE 60–116; RESP 12–18; TEMP 36.6–37.2; O2SAT 93–98
[2022-02-03] MEDS: Morphine 2 MG/ML Syringe IV ×6 (02:41→21:07)
[2022-02-03] MEDS: Metoprolol Tartrate 5 MG/5 ML Vial IV ×3 (04:20→21:19)
[2022-02-03] MEDS: 0.9% Normal Saline 1,000 ML 150 ML IV ×2 (04:21→17:26)
[2022-02-03 04:58] LABS: Absolute Neutrophil Count 23.3 X10^3/uL (2.0-7.7); Basophil# 0.03 X10^3/uL; Basophil% 0.1 % (0-1); Eosinophil# 0.01 X10^3/uL; Hematocrit 32.9 % (37-47); Hemoglobin 10.1 g/dL (12.0-15.0); Lymphocyte % 3.4 % (19-41); Mean Corp Hgb Conc 30.7 g/dL (32-36); Mean Corpuscular Volume 78.1 fL (81-99); Mean Platelet Vol. 9.6 fl (6.2-12.0); Monocyte# 1.99 X10^3/uL; Monocyte% 7.5 % (0-10); NRBC Flagged by Analyzer 0 % (0-5); Neutrophil # 23.26 X10^3/uL (2.7-7.7); Neutrophil % 87.5 % (47-70); POSITIVE DIFFERENTIAL YES; Platelet Count 292 K/mm3 (150-450); RBC Distribution Width CV 16.2 % (11.6-14.6); RBC Distribution Width SD 45.9 fl (35.1-43.9); Red Blood Count 4.21 M/mm3 (4.2-5.4); White Blood Count 26.6 K/mm3 (4.4-11.0)
[2022-02-03 05:03] LABS: Differential Indicated SCAN CRITERIA MET
[2022-02-03 05:16] LABS: Anion Gap 4 (5-15); BUN 16 mg/dL (7-18); BUN/Creat Ratio 29.5 RATIO (10-20); Calcium,Total 9.9 mg/dL (8.5-10.1); Chloride 117 mmol/L (98-107); Creatinine, Serum 0.54 mg/dL (0.55-1.02); EST Glomerular Filtration Rate 116 mL/min (>60); Est Glom Filt Rate - Afr Amer 140 mL/min (>60); Estimated Creatinine Clearance 32.35 ml/min; Glucose 96 mg/dL (74-106); Potassium 3.2 mmol/L (3.5-5.1); Sodium Level 142 mmol/L (136-145)
[2022-02-03] MEDS: metroNIDAZOLE 500 MG/100 ML BAG 100 MG IV ×3 (05:18→21:08)
[2022-02-03 06:35] LABS: Differential Comment SCANNED
[2022-02-03] MEDS: Potassium Chloride 10mEq/100mL 10 MEQ/100 ML IV.SOLN. 75 MEQ IV BOLUS ×2 (06:48→08:17)
--- NOTE | 2022-02-03 09:23 | PN_ITS ---
Subjective Subjective She complains of mild bloating and mild abdominal pain. She rates it at a 4 out of 10. She has been going in and out of atrial fibrillation with RVR while sleeping. Her weight is down to about 97 pounds. Objective Data Objective Data Vital Signs: Vital Signs Temp Pulse Resp BP Pulse Ox 99 F 71 16 139/65 H 93 02/03/22 08:19 02/03/22 08:25 02/03/22 08:19 02/03/22 08:19 02/03/22 08:19 Oxygen Delivery Method Room Air Weight: 97 lb 7.109 oz Body Mass Index (BMI) 19.0 Intake & Output: Intake and Output for Last 24 Hours 02/01/22 02/02/22 02/03/22 23:59 23:59 23:59 Intake Total 1270.42 / 1270.42 3467.08 / 3467.08 1842.5 / 1842.5 Output Total 150 / 150 500 / 500 1100 / 1100 Balance 1120.42 / 1120.42 2967.08 / 2967.08 742.5 / 742.5 Medical Nutrition Assessment Dietitian: Malnutrition Criteria Met Start: 02/02/22 13:10 Freq: Status: Active Protocol: Document 02/02/22 13:10 RMA (Rec: 02/02/22 13:10 RMA [id number]) Nutrition Malnutrition Evidence of Malnutrition Exists Yes Malnutrition (severe): Acute Illness/Injury Evidenced By Suboptimal Energy Intake ( Severe),Weight Loss (Severe), Physical Changes (Severe) Clinical Problem Acute Disease or Injury Related Malnutrition Etiology Severe protein/calorie malnutrition in the context of acute illness related to abd pain/inadequate oral intake and altered GI function Signs/Symptoms as evidenced by ~10% wt loss in less than 1 month, poor oral intake meeting less than 50% estimated nutrition needs, +NFPA indicating physical signs of malnutrition with severe muscle/fat wasting in the face, neck, clavicle, arms and legs Status Active Problem Recommendation Dietitian Recommendations/Changes Recommend advance PO as tolerated and medically able to Transitional Diet with Ensure Clear supplements for extra calories/protein. Consider parenteral nutrition support if unable to advance diet in 24-48 hours to prevent further energy/protein depletion. Lab / Micro Data Result Diagrams: 02/03/22 04:40 02/03/22 04:40 Labs: Laboratory Results - last 24 hr 02/02/22 06:13: Differential Comment SCANNED, Diff Path Review February [facility] 02/03/22 04:40: WBC 26.6 H, RBC 4.21, Hgb 10.1 L, Hct 32.9 L, MCV 78.1 L, MCH 24.0 L, MCHC 30.7 L, RDW Std Deviation 45.9 H, RDW Coeff of Travis 16.2 H, Plt Count 292, MPV 9.6, Immature Gran % (Auto) 1.500 H, Neut % (Auto) 87.5 H, Lymph % (Auto) 3.4 L, Boyd % (Auto) 7.5, Eos % (Auto) 0.0, Baso % (Auto) 0.1, Absolute Neuts (auto) 23.3 H, Absolute Lymphs (auto) 0.90, Nucleated RBC % 0, Differential Comment SCANNED, Diff Path Review February [facility] 02/03/22 04:40: Sodium 142, Potassium 3.2 L, Chloride 117 H, Carbon Dioxide 21.0, Anion Gap 4 L, BUN 16, Creatinine 0.54 L, Estim Creat Clear Calc 32.35, Es t GFR (MDRD) Af Amer 140, Est GFR (MDRD) Non-Af 116, BUN/Creatinine Ratio 29.5 H , Glucose 96, Calcium 9.9 Micro: Microbiology 02/01/22 08:05 Nasal Secretion SARS-CoV-2 Antigen (Rapid) - Final Radiography Diagnostic Testing: Radiology Impression Chest X-Ray 02/02/22 10:10 IMPRESSION: Decreased pneumoperitoneum. Left basilar atelectasis or consolidation. at 1031 Reported and signed by: Omayra Rincon MD Electronically Signed: Omayra Rincon MD at 10:30 EDT , KUB X-Ray 02/02/22 10:15 IMPRESSION: Nasogastric tube tip now in the left lower quadrant, uncertain if within the stomach. Persistent gaseous distention of bowel in the midabdomen. at 1037 Reported and signed by: Omayra Rincon MD Electronically Signed: Omayra Rincon MD at 10:36 EDT , Physical Exam Const alert General Appearance: cooperative Orientation / Consciousness: oriented to person HEENT hearing grossly normal bilaterally Head and Scalp: normal to inspection Face and Sinus: face symmetric Nose: external nose normal Mouth: oral and palatal mucosa normal Eyes conjunctivae normal General Eye: normal appearance of both eyes Neck full ROM General: normal visual inspection Lymph Lymphatic: no lymphadenopathy noted Chest inspection of chest normal and palpation of chest normal Chest: symmetrical chest wall rise Resp normal respiratory effort Effort and Inspection: able to speak in complete sentences Cardio regular rate GI non-distended Percussion: normal to percussion Rectal Exam: deferred Neuro Speech: speech normal Gait (Neuro): normal gait Assessment & Plan Assessment/Plan (1) Pneumoperitoneum of unknown etiology: PLAN: Her repeat KUB and chest x-ray does show decrease in pneumoperit oneum. NG tube seems to be in good place. Her white blood cell count did increase to 32,000 but it is decreasing down to 26,000 today. Hopefully she has not formed an abscess. I will repeat her CT scan today and the plan is for a upper GI with Gastrografin tomorrow to try to locate the defect. (2) Weight loss: PLAN: Since she has not been feeling well for about a week and continues to lose weight I would consider parenteral feedings. Charges/Coding Visit Charges Inpatient E&M: 86767 Subs Hosp L2
--- NOTE | 2022-02-03 09:25 | CT_ITS ---
STUDY: CT ABDOMEN AND PELVIS WITH CONTRAST REASON FOR EXAM: Female, 77 years old. Bowel perforation of unknown etiology RADIATION DOSAGE (If Supplied By Facility): CTDIvol = ( 11.11 ) mGy, DLP = ( 420.09 ) mGycm TECHNIQUE: Transaxial images were obtained from the dome of the diaphragm to the symphysis pubis without oral contrast. IV 100mL Isovue-370 was administered. Sagittal and coronal images were reconstructed. Individualized dose optimization techniques were used for this CT. COMPARISON: 02/01/2022. FINDINGS: The visualized portions of the lung bases demonstrate compressive atelectatic changes in both lower lobes. Moderate left and small right pleural effusions. The visualized portions of the heart are within normal limits. Normal liver. Markedly distended gallbladder partially herniated through an anterior abdominal wall defect without evidence of gallstones Normal spleen. Normal pancreas. Normal bilateral adrenal glands. Normal right kidney. Normal left kidney. Status post Rayray-en-Y surgery. Nasogastric tube extends to a jejunal loop. Thickening of the gastric wall concerning for gastritis. Normal caliber small bowel loops. Large anterior abdominal wall defect is again seen containing small bowel loops and colon left lower quadrant ostomy is again seen. Pockets of air in the adjacent subcutaneous fat. Thickening of the sigmoid colon. There is non-visualization of the appendix. Tortuosity of the abdominal aorta without evidence of aneurysm. Normal inferior vena cava. Pneumoperitoneum the left upper quadrant and epigastric region as well as in the anterior abdomen along the anterior abdominal wall increased since the previous exam. Normal urinary bladder. Uterine calcifications consistent with calcified uterine fibroids. Somewhat retroverted uterus. Compression fracture of L1 vertebra is again seen. Degenerative changes in the spine unchanged. CT/Abdomen/Pelvis W IV Cont ONLY IMPRESSION: 1. Compressive atelectatic changes both lower lobes and small pleural effusions worse on the left side. 2. Status post Rayray-en-Y surgery with thickening of the gastric wall could be due to gastritis or underdistention. 3. Pneumoperitoneum slightly increased anterior to the liver is previous exam. 4. Persistent large anterior abdominal hernia containing bowel loops, dilated transverse colon and partial gallbladder. 5. Status post left lower quadrant ostomy with adjacent small pockets air in the anterior abdominal wall. Electronically Signed: Kojo Jordan MD at 10:50 EDT ,
--- NOTE | 2022-02-03 09:54 | NURSING ---
pt to ct scan
--- NOTE | 2022-02-03 10:08 | PN.HOSP_ITS ---
Subjective Subjective Patient seen and examined. She still complains of some abdominal pain. She has no complaints and review of symptoms otherwise negative. She has had intermittent A. fib with RVR episodes. She is currently rate controlled. Her white cell count has trended down to 26. Objective Data Objective Data Vital Signs: Vital Signs Temp Pulse Resp BP Pulse Ox 99 F 71 16 139/65 H 93 02/03/22 08:19 02/03/22 08:25 02/03/22 08:19 02/03/22 08:19 02/03/22 08:19 Oxygen Delivery Method Room Air Weight: 97 lb 7.109 oz Body Mass Index (BMI) 19.0 Intake & Output: Intake and Output for Last 24 Hours 02/01/22 02/02/22 02/03/22 23:59 23:59 23:59 Intake Total 1270.42 / 1270.42 3467.08 / 3467.08 1992.5 / 1991.5 Output Total 150 / 150 500 / 500 1100 / 1100 Balance 1120.42 / 1120.42 2967.08 / 2967.08 892.5 / 892.5 Medical Nutrition Assessment Dietitian: Malnutrition Criteria Met Start: 02/02/22 13:10 Freq: Status: Active Protocol: Document 02/02/22 13:10 RMA (Rec: 02/02/22 13:10 RMA [id number]) Nutrition Malnutrition Evidence of Malnutrition Exists Yes Malnutrition (severe): Acute Illness/Injury Evidenced By Suboptimal Energy Intake ( Severe),Weight Loss (Severe), Physical Changes (Severe) Clinical Problem Acute Disease or Injury Related Malnutrition Etiology Severe protein/calorie malnutrition in the context of acute illness related to abd pain/inadequate oral intake and altered GI function Signs/Symptoms as evidenced by ~10% wt loss in less than 1 month, poor oral intake meeting less than 50% estimated nutrition needs, +NFPA indicating physical signs of malnutrition with severe muscle/fat wasting in the face, neck, clavicle, arms and legs Status Active Problem Recommendation Dietitian Recommendations/Changes Recommend advance PO as tolerated and medically able to Transitional Diet with Ensure Clear supplements for extra calories/protein. Consider parenteral nutrition support if unable to advance diet in 24-48 hours to prevent further energy/protein depletion. Lab / Micro Data Result Diagrams: 02/03/22 04:40 02/03/22 04:40 Labs: Laboratory Results - last 24 hr 02/02/22 06:13: Differential Comment SCANNED, Diff Path Review February [facility] 02/03/22 04:40: WBC 26.6 H, RBC 4.21, Hgb 10.1 L, Hct 32.9 L, MCV 78.1 L, MCH 24.0 L, MCHC 30.7 L, RDW Std Deviation 45.9 H, RDW Coeff of Travis 16.2 H, Plt Count 292, MPV 9.6, Immature Gran % (Auto) 1.500 H, Neut % (Auto) 87.5 H, Lymph % (Auto) 3.4 L, [place] % (Auto) 7.5, Eos % (Auto) 0.0, Baso % (Auto) 0.1, Absolute Neuts (auto) 23.3 H, Absolute Lymphs (auto) 0.90, Nucleated RBC % 0, Differential Comment SCANNED, Diff Path Review February [facility] 02/03/22 04:40: Sodium 142, Potassium 3.2 L, Chloride 117 H, Carbon Dioxide 21.0, Anion Gap 4 L, BUN 16, Creatinine 0.54 L, Estim Creat Clear Calc 32.35, Est GFR (MDRD) Af Amer 140, Est GFR (MDRD) Non-Af 116, BUN/Creatinine Ratio 29.5 H, Glucose 96, Calcium 9.9 Micro: Microbiology 02/01/22 08:05 Nasal Secretion SARS-CoV-2 Antigen (Rapid) - Final Radiography Diagnostic Testing: Radiology Impression Chest X-Ray 02/02/22 10:10 IMPRESSION: Decreased pneumoperitoneum. Left basilar atelectasis or consolidation. at 1031 Reported and signed by: Omayra Rincon MD Electronically Signed: Omayra Rincon MD at 10:30 EDT , KUB X-Ray 02/02/22 10:15 IMPRESSION: Nasogastric tube tip now in the left lower quadrant, uncertain if within the stomach. Persistent gaseous distention of bowel in the midabdomen. at 1037 Reported and signed by: Omayra Rincon MD Electronically Signed: Omarya Rincon MD at 10:36 EDT Reading Location ID and State: [facility] / [place] Tel , Service support , Physical Exam Const alert, oriented x3 and no apparent distress Constitutional Narrative: frail General Appearance: cooperative Exam Limitations: no limitations Nutritional Appearance: cachectic HEENT normocephalic and head/scalp atraumatic Head and Scalp: normocephalic Eyes PERRL, EOMs intact bilaterally and conjunctivae normal Neck no lymphadenopathy and supple Resp normal respiratory effort, no retractions, no use of accessory muscles and clear to auscultation bilaterally Cardio regular rate, regular rhythm, S1 normal heart sound, S2 normal heart sound and no murmurs GI GI Narrative: abdomen soft, moderate generalised tenderness, no guarding or rebound tenderness. Has colostomy bag in place. large abdominal wall hernia Extremity normal to inspection, full ROM and no clubbing, cyanosis or edema Peripheral Pulses: Yes pulses 2+ throughout Skin no rashes or lesions noted Neuro oriented x3, CN's II-XII intact bilaterally and moves all extremities Sensorium / Orientation: awake and alert Psych affect normal Assessment & Plan Assessment/Plan (1) Pneumoperitoneum of unknown etiology: (2) Abdominal pain: QUALIFIERS: Abdominal location: epigastric Qualified Code(s): R10.13 - Epigastric pain PLAN: #Abdominal pain due to pneumoperitoneum * pneumoperitoneum thought to be due to gastric or gastrojejunostomy anastomotic leak * wbc has trended down to 26 from 32 yesterday * GI on board. General surgery also on board * she has an NG tube in situ * CT abdomen showed pneumoperitoneum * being hydrated with IVF * for gastrograffin study on friday; This will hold GI know exactly with the leak is * she had an EGD and colonoscopy in August 2021 which showed a moderate Schatzki ring, stenosed Bilroth I gastroduodenostomy with erosion, erythema and friable mucosa with hemorrhagic appearance and intact staple line. This was dilated. She also has multiple wounds and jejunal ulcers with visible vessel which was treated. Colonoscopy showed redundant colon with patent end sigmoid colostomy characterized by ulceration and mild stenosis. * on IV Zosyn now * #History of bariatric surgery * Had Rayray-en-Y surgery in 2016 for hiatal hernia and severe GERD. 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 * She still does have a large abdominal wall hernia. * #Abdominal wall hernia * As have a large upper abdominal hernia as documented above as a sequelae of surgery. * has been deemed too high risk for surgery * follow up with general surgery on outpatient basis * #Afib * She keeps on going into A. fib with RVR and comes out of it. Based on this, will transfer to PCU for closer monitoring. * On IV metoprolol as needed. * she doesnt appear to have a history of afib. * Her last echo in the record seems to be from 2013 where she was noted to have EF of 65% with stage I diastolic dysfunction and no regional wall motion abnormalities noted. * Will get a 2D echo * DVT prophylaxis: lovenox Gi prophylaxis; PPI Code status: full code * Charges/Coding Visit Charges Inpatient E&M: 41370 Subs Hosp L3
--- NOTE | 2022-02-03 10:20 | NURSING ---
called report to pcu. pt transferred to u [facility]. katelyn notified of transfer.
[2022-02-03] MEDS: Potassium Chloride 10mEq/100mL 10 MEQ/100 ML IV.SOLN. 100 MEQ IV BOLUS ×2 (10:45→11:57)
[2022-02-03] MEDS: Enoxaparin 40 MG/0.4 ML Syringe SC (10:50)
[2022-02-04] VITALS (26 sets, daily range): BP systolic 78–180; BP diastolic 51–98; PULSE 62–156; RESP 16–22; TEMP 36.4–37.3; O2SAT 95–97
[2022-02-04] MEDS: 0.9% Normal Saline 1,000 ML 150 ML IV (00:41)
[2022-02-04] MEDS: Metoprolol Tartrate 5 MG/5 ML Vial IV ×2 (05:22→16:06)
[2022-02-04] MEDS: metroNIDAZOLE 500 MG/100 ML BAG 100 MG IV ×3 (05:23→23:05)
[2022-02-04] MEDS: Morphine 2 MG/ML Syringe IV ×5 (05:23→18:18)
--- NOTE | 2022-02-04 06:27 | PN.SURG_ITS ---
Subjective Subjective Patient states that she sat in a chair for a while yesterday. The small amount of ambulating. She notes persistent upper abdominal pain. Possibly slightly improved. Stoma is functioning Objective Data Objective Data Vital Signs: Vital Signs Temp Pulse Resp BP Pulse Ox 98.4 F 70 18 172/98 H 94 02/03/22 23:15 02/04/22 05:22 02/03/22 23:15 02/04/22 05:22 02/03/22 23:15 Oxygen Delivery Method Room Air Weight: 97 lb 7.109 oz Body Mass Index (BMI) 19.0 Intake & Output: Intake and Output for Last 24 Hours 02/02/22 02/03/22 02/04/22 23:59 23:59 23:59 Intake Total 3467.08 / 3467.08 3005.0 / 3005.0 1080 / 1080 Output Total 500 / 500 1100 / 1500 400 / 400 Balance 2967.08 / 2967.08 1905.0 / 1505.0 680 / 680 Medical Nutrition Assessment Dietitian: Malnutrition Criteria Met Start: 02/02/22 13:10 Freq: Status: Active Protocol: Document 02/02/22 13:10 RMA (Rec: 02/02/22 13:10 RMA [id number]) Nutrition Malnutrition Evidence of Malnutrition Exists Yes Malnutrition (severe): Acute Illness/Injury Evidenced By Suboptimal Energy Intake ( Severe),Weight Loss (Severe), Physical Changes (Severe) Clinical Problem Acute Disease or Injury Related Malnutrition Etiology Severe protein/calorie malnutrition in the context of acute illness related to abd pain/inadequate oral intake and altered GI function Signs/Symptoms as evidenced by ~10% wt loss in less than 1 month, poor oral intake meeting less than 50% estimated nutrition needs, +NFPA indicating physical signs of malnutrition with severe muscle/fat wasting in the face, neck, clavicle, arms and legs Status Active Problem Recommendation Dietitian Recommendations/Changes Recommend advance PO as tolerated and medically able to Transitional Diet with Ensure Clear supplements for extra calories/protein. Consider parenteral nutrition support if unable to advance diet in 24-48 hours to prevent further energy/protein depletion. Lab / Micro Data Result Diagrams: 02/03/22 04:40 02/03/22 04:40 Labs: Laboratory Results - last 24 hr 02/03/22 04:40: Differential Comment SCANNED, Diff Path Review May foll Micro: Microbiology 02/01/22 08:05 Nasal Secretion SARS-CoV-2 Antigen (Rapid) - Final Radiography Diagnostic Testing: Radiology Impression Abdomen/Pelvis CT 02/03/22 09:25 IMPRESSION: 1. Compressive atelectatic changes both lower lobes and small pleural effusions worse on the left side. 2. Status post Rayray-en-Y surgery with thickening of the gastric wall could be due to gastritis or underdistention. 3. Pneumoperitoneum slightly increased anterior to the liver is previous exam. 4. Persistent large anterior abdominal hernia containing bowel loops, dilated transverse colon and partial gallbladder. 5. Status post left lower quadrant ostomy with adjacent small pockets air in the anterior abdominal wall. Electronically Signed: Kojo Jordan MD at 10:50 EDT , Physical Exam GI GI Narrative: Patient remains tender to even superficial palpation left epigastrium, remainder of the abdomen is soft Assessment & Plan Assessment/Plan (1) Pneumoperitoneum of unknown etiology: PLAN: CT yesterday demonstrates increased pneumoperitoneum with air now along the anterior abdominal wall as well as focus that the gastric bypass an astomotic site. Moderate left pleural effusion with a smaller right pleural effusion Distended gallbladder that extends into the abdominal wall defect. No gallstones Patient is scheduled to have the Gastrografin swallow today and attempts at identifying the site of the leak. She clearly has an ongoing leak and will not be a candidate for oral nutrition at least in the short-term. I concur with recommendations for a PICC line and initiation of TPN. Adarsh Ibarra M.D., F.A.C.S.
[2022-02-04 06:28] LABS: Absolute Lymphocyte Count 0.71 X10^3/uL (0.83-4.51); Absolute Neutrophil Count 15.7 X10^3/uL (2.0-7.7); Basophil# 0.03 X10^3/uL; Basophil% 0.2 % (0-1); Eosinophil# 0.18 X10^3/uL; Hematocrit 30.1 % (37-47); Hemoglobin 9.3 g/dL (12.0-15.0); Lymphocyte # 0.71 X10^3/ul (0.83-4.51); Mean Corp Hgb Conc 30.9 g/dL (32-36); Mean Corpuscular Hgb 24.2 pg (27.0-32.0); Mean Corpuscular Volume 78.2 fL (81-99); Mean Platelet Vol. 9.7 fl (6.2-12.0); Monocyte# 1.08 X10^3/uL; NRBC Flagged by Analyzer 0 % (0-5); Neutrophil # 15.66 X10^3/uL (2.7-7.7); Neutrophil % 87.5 % (47-70); Platelet Count 259 K/mm3 (150-450); RBC Distribution Width CV 16.5 % (11.6-14.6); RBC Distribution Width SD 47.3 fl (35.1-43.9); Red Blood Count 3.85 M/mm3 (4.2-5.4); White Blood Count 17.9 K/mm3 (4.4-11.0)
[2022-02-04 06:55] LABS: Anion Gap 5 (5-15); BUN 17 mg/dL (7-18); BUN/Creat Ratio 42.7 RATIO (10-20); Calcium,Total 9.7 mg/dL (8.5-10.1); Chloride 122 mmol/L (98-107); EST Glomerular Filtration Rate 165 mL/min (>60); Est Glom Filt Rate - Afr Amer 200 mL/min (>60); Estimated Creatinine Clearance 32.35 ml/min; Glucose 79 mg/dL (74-106); Potassium 3.2 mmol/L (3.5-5.1); Sodium Level 145 mmol/L (136-145)
--- NOTE | 2022-02-04 07:00 | ECHOD_ITS ---
Reason For Study: Afib/Flutter Procedure This was a 2D Doppler, Color Flow transthoracic echocardiogram. Exam performed portable in patient room. Left Ventricle Normal LV size. Left ventricular systolic function is normal. The estimated ejection fraction is 55 %. Stage 1 diastolic dysfunction. No regional wall motion abnormalities noted. Right Ventricle Normal RV size. Normal systolic function. Atria The left atrium is mildly enlarged. The right atrium is mildly enlarged. Mitral Valve There is moderate to severe mitral annular calcification. Mild (1+) eccentric mitral valve insufficiency. Tricuspid Valve Normal tricuspid valve. Mild (1+) tricuspid valve insufficiency. Pulmonary artery systolic pressure is 44 mmHg. Aortic Valve Trisinus/trileaflet aortic valve. Pulmonic Valve Normal pulmonic valve. Great Vessels Normal aortic root. The pulmonary artery is normal size. Normal inferior vena cava. Pericardium/Pleural Small pericardial effusion. Moderate size left pleural effusion. MMode/2D Measurements & Calculations LVIDd: 4.1 cm IVSd: 0.78 cm LA dimension: 3.3 cm LVIDs: 2.6 cm LVPWd: 0.70 cm RVDd: 3.9 cm FS: 38.4 % LAV(MOD-bp): 54.2 ml LA A4 area: 22.2 cm2 RA A4 area: 23.3 cm2 LAV(MOD-bp) Indexed: 39.5 ml/m2 LAV(MOD-sp2): 36.9 ml LAV(MOD-sp4): 70.6 ml Time Measurements MV dec time: 0.22 sec Doppler Measurements & Calculations MV E max gustavo: 113.2 cm/sec Lat Peak E' Gustavo: 5.7 cm/sec Med Peak E' Gustavo: 4.4 cm/sec MV A max gustavo: 167.2 cm/sec E/E' lat: 19.7 E/E' med: 25.8 MV E/A: 0.68 MV V2 max: 190.7 cm/sec MV P1/2t max gustavo: 133.0 cm/sec Ao V2 max: 143.7 cm/sec MV max P.5 mmHg MV P1/2t: 99.4 msec Ao max P.3 mmHg MV V2 mean: 101.8 cm/sec MV dec slope: 392.0 cm/sec2 MV mean P.8 mmHg MVA(P1/2t): 2.2 cm2 MV V2 VTI: 42.1 cm LV V1 max: 113.9 cm/sec PA V2 max: 97.7 cm/sec TR max gustavo: 312.5 cm/sec LV V1 max P.2 mmHg TR max P.1 mmHg ECHO/Echo Complete Interpretation Summary Normal LV size. Left ventricular systolic function is normal. The estimated ejection fraction is 55 %. Stage 1 diastolic dysfunction. Pulmonary artery systolic pressure is 44 mmHg. The left atrium is mildly enlarged. The right atrium is mildly enlarged. Small pericardial effusion. Moderate size left pleural effusion. Ordering Physician: Nicole Ludwig Referring Physician: Garret Coy Chi Performed By: Chris Rutledge RCS
[2022-02-04] MEDS: 0.45% Normal Saline 1,000 ML 75 ML IV ×2 (08:33→20:57)
[2022-02-04] MEDS: Enoxaparin 40 MG/0.4 ML Syringe SC (08:34)
--- NOTE | 2022-02-04 09:25 | CASEMGMT ---
Accordin to the [facility] website, the following are in-network tertiary facilities: [facility], [place], [facility], [place], [facility], [place], [facility], and . Brock [facility] CM
--- NOTE | 2022-02-04 09:30 | RAD_ITS ---
STUDY: GASTROGRAFIN UPPER GI SERIES. REASON FOR EXAM: Female, 77 years old. Bowel perforation -- Please use gastrografin and do not use barium FLUOROSCOPY TIME (if supplied): ( 1 minute and 16 seconds ) minutes/seconds. 7 images were obtained. TECHNIQUE: GASTROGRAFIN was introduced through the indwelling NG tube. Imaging was obtained. COMPARISON: None. FINDINGS: The tip of the NG tube is within the proximal jejunum. The patient is status post subtotal gastrectomy with a Rayray-en-Y anastomosis. There is no evidence of the leakage of contrast. No evidence of obstruction. RAD/Upper GI Single Contrast IMPRESSION: No leakage is seen. Electronically Signed: Sreekanth Kenney MD at 10:03 EDT ,
[2022-02-04] MEDS: Potassium Chloride 10mEq/100mL 10 MEQ/100 ML IV.SOLN. 100 MEQ IV BOLUS ×4 (09:56→15:18)
[2022-02-04 11:04] LABS: Phosphorus 1.2 mg/dL (2.5-4.9); Triglycerides 50 mg/dL
--- NOTE | 2022-02-04 11:24 | WOUNDNOTE ---
Colostomy appliance changed to the left lower abdomen. there was a small amount of thick brown stool noted in the appliance. peristomal skin is intact. stoma is pink and moist. stoma sits at skin level. skin cleansed with warm water. pat dry. appliance a new 2 piece flat [place] appliance. pt states she does not use stoma paste. patient typically uses a convex appliance. this nurse does not have a convex appliance that fits stoma. the pre cut convex appliances are too large. the flat appliance should work nicely. pt tolerated well. will monitor.
[2022-02-04] MEDS: 0.9% Saline Lock 10 ML Syringe IV ×2 (12:30→20:18)
[2022-02-04 13:00] LABS: Pathologist Review Reviewed
[2022-02-04 13:20] LABS: Pathologist Review Reviewed
--- NOTE | 2022-02-04 14:06 | PCM.PN.HOSP ---
Subjective Subjective Patient is just returned from Gastrografin study. Denies any marked abdominal discomfort at this time and states the medication has been helpful. Reports that the NG is more problematic than her abdominal pain currently. No specific overnight issues. Patient states her Rayary-en-Y was in 2016 at [facility]. Objective Data Objective Data Vital Signs: Vital Signs Temp Pulse Resp BP Pulse Ox 97.9 F 75 18 157/89 H 97 02/04/22 09:18 02/04/22 11:31 02/04/22 09:18 02/04/22 09:18 02/04/22 09:18 Oxygen Delivery Method Room Air Weight: 44.2 kg Body Mass Index (BMI) 19.0 Intake & Output: Intake and Output for Last 24 Hours 02/02/22 02/03/22 02/04/22 23:59 23:59 23:59 Intake Total 3467.08 / 3467.08 3005.0 / 3005.0 2539 / 2539 Output Total 500 / 500 1100 / 1500 725 / 725 Balance 2967.08 / 2967.08 1905.0 / 1505.0 1814 / 1814 Medical Nutrition Assessment Dietitian: Malnutrition Criteria Met Start: 02/02/22 13:10 Freq: Status: Active Protocol: Document 02/04/22 10:48 RMA (Rec: 02/04/22 10:48 RMA [id number]) Nutrition Malnutrition Evidence of Malnutrition Exists Yes Malnutrition (severe): Acute Illness/Injury Evidenced By Suboptimal Energy Intake ( Severe),Weight Loss (Severe), Physical Changes (Severe) Clinical Problem Acute Disease or Injury Related Malnutrition Etiology Severe protein/calorie malnutrition in the context of acute illness related to abd pain/inadequate oral intake and altered GI function Signs/Symptoms as evidenced by ~10% wt loss in less than 1 month, poor oral intake meeting less than 50% estimated nutrition needs, +NFPA indicating physical signs of malnutrition with severe muscle/fat wasting in the face, neck, clavicle, arms and legs Status Active Problem Recommendation Dietitian Recommendations/Changes 1.) TPN ordered to start with 1 L Clinimix 8% amino acid/14% dextrose @ 42 ml/hr (no lipids) with electrolytes/MVI/ trace elements/folic acid and famotidine as per provider's order. TPN as ordered will provide 798 kcal, 140 gm dextrose, 80 gm protein per day and will meet~57% estimated energy/diana needs and ~123% estimated protein needs . Will increase volume/rate and add lipids as indicated and as tolerated. 2.) Mag/phos ordered 02/04, , 02/06; triglyceride ordered 02/04. Will monitor labs/ electrolytes closely. 3.) Daily weights ordered. Will trend weights as available. 4.) Will monitor for signs/ symptoms of refeeding syndrome and gradually increase TPN as able. 5.) Will monitor for ability to reintroduce PO nutrition and recommend diet/ONS as indicated. Lab / Micro Data Result Diagrams: 02/04/22 05:53 02/04/22 05:53 Labs: Laboratory Results - last 24 hr 02/02/22 06:13: Diff Path Review Reviewed 02/03/22 04:40: Diff Path Review Reviewed 02/04/22 05:53: WBC 17.9 H, RBC 3.85 L, Hgb 9.3 L, Hct 30.1 L, MCV 78.2 L, MCH 24.2 L, MCHC 30.9 L, RDW Std Deviation 47.3 H, RDW Coeff of Travis 16.5 H, Plt Count 259, MPV 9.7, Immature Gran % (Auto) 1.300 H, Neut % (Auto) 87.5 H, Lymph % (Auto) 4.0 L, [place] % (Auto) 6.0, Eos % (Auto) 1.0, Baso % (Auto) 0.2, Absolute Neuts (auto) 15.7 H, Absolute Lymphs (auto) 0.71 L, Nucleated RBC % 0 02/04/22 05:53: Sodium 145, Potassium 3.2 L, Chloride 122 H, Carbon Dioxide 18.0 L, Anion Gap 5, BUN 17, Creatinine 0.40 L, Estim Creat Clear Calc 32.35, Est GFR (MDRD) Af Amer 200, Est GFR (MDRD) Non-Af 165, BUN/Creatinine Ratio 42.7 H, Glucose 79, Calcium 9.7 02/04/22 05:53: Phosphorus 1.2 L, Magnesium 2.0, Triglycerides 50 Micro: Microbiology 02/01/22 08:05 Nasal Secretion SARS-CoV-2 Antigen (Rapid) - Final Radiography Diagnostic Testing: Radiology Impression Upper GI Series 02/04/22 09:30 IMPRESSION: No leakage is seen. Electronically Signed: Sreekanth Kenney MD at 10:03 EDT , Physical Exam Const alert and oriented x3 Constitutional Narrative: Elderly white female lying in bed, appears thin and malnourished, patient appears nontoxic however she does appear uncomfortable, nursing at bedside Exam Limitations: no limitations Nutritional Appearance: thin HEENT head/scalp atraumatic and moist oral mucous membranes HEENT Narrative: NG tube in the right nares, Mallampati 2, no thrush Head and Scalp: normocephalic Eyes PERRL and EOMs intact bilaterally Eyes Narrative: Pale conjunctiva bilaterally, no scleral icterus Neck no lymphadenopathy, supple and no JVD Neck Narrative: Trachea midline, no thyroid enlargement Resp normal respiratory effort, no retractions, no use of accessory muscles and clear to auscultation bilaterally Auscultation: Negative for crackles, rales, rhonchi or wheezes Cardio regular rate, S1 normal heart sound, S2 normal heart sound, no murmurs, no rub, no gallops, no clicks and no JVD Cardio Narrative: Irregular regular with regular rate GI soft to palpation and non-distended; Negative for hepatosplenomegaly GI Narrative: Abdomen is tender diffusely but soft, no distention noted, bowel sounds are hypoactive Extremity no clubbing, cyanosis or edema Peripheral Pulses: Yes pulses 2+ throughout Skin no rashes or lesions noted, no wounds, skin turgor normal, no jaundice, no petechiae and no mottling Skin Narrative: Scattered ecchymotic areas from hospitalization but no other lesions noted Neuro oriented x3, CN's II-XII intact bilaterally, moves all extremities and no focal motor deficits Neuro Narrative: Generalized weakness Sensorium / Orientation: awake and alert Speech: speech normal Psych Psych Narrative: Affect is flattened mood is depressed Mood & Affect: depressed Assessment & Plan Assessment/Plan (1) Pneumoperitoneum of unknown etiology: (2) Abdominal pain: QUALIFIERS: Abdominal location: epigastric Qualified Code(s): R10.13 - Epigastric pain (3) Leukocytosis: (4) Microcytic anemia: (5) Metabolic acidosis: (6) Hyperchloremia: (7) Hypokalemia: (8) Hypophosphatemia: (9) Severe malnutrition: PLAN: Pneumoperitoneum of unknown etiology with suspected peritonitis -CT yesterday shows worsened pneumoperitoneum -Gastrografin upper GI series pending to try to identify etiology of pneumoperitoneum -Continue NG tube -Continue as needed pain medication -Continue IV antibiotics as ordered -Abscess identified on imaging -White count is improving with antibiotics -Start TPN -DC GI/general surgery input -Await imaging for further plans Leukocytosis -Secondary to the above -Trending down -Continue IV antibiotics -Blood cultures pending Non-anion gap metabolic acidosis secondary to hyperchloremia -We will switch IV fluids from normal saline to half-normal saline at the same rate -Likely be able to discontinue IV fluids tomorrow with initiation of TPN later today -Repeat a.m. lab Hypokalemia -40 mill equivalents of potassium chloride IV -Repeat in a.m. Hypophosphatemia -Sodium phosphorus bolus 30 mmol x 1 dose -Repeat Phos in a.m. Severe malnutrition -Significant weight loss with marked decreased p.o. intake -Place PICC and start TPN this evening -Once able to take p.o. will need supplements added -Dietitian is following Microcytic anemia -Hemoglobin was normal on admission -No signs of acute GI bleeding -Microcytosis appears to be chronic -We will check iron studies -She does take a multivitamin with iron at home orally GERD -We will utilize famotidine in the TPN and discontinue PPI for now -Restart PPI once off TPN History of Rayray-en-Y gastric bypass surgery -As documented this was performed for large hiatal hernia and severe GERD however I would anticipate a Lázaro be done rather than a Rayray-en-Y -Her bypass was complicated by a perforated sigmoid diverticulum for which she had an open colectomy and end colostomy -Patient has a remaining large abdominal wall hernia and will need outpatient follow-up Paroxysmal atrial fibrillation -Continue IV metoprolol -2D echo pending -No anticoagulation secondary to possible surgical needs History of GI bleed -EGD done in August 2021 which showed moderate Schatzki's ring, stenosed Billroth I gastric duodenostomy with erosion, erythema and friability in the mucosa with hemorrhagic appearance and an intact staple line -Patient also had multiple jejunal ulcers with visible vessel which was treated -Colonoscopy was also done and showed redundant colon with patent and sigmoid colostomy characterized by ulceration and mild stenosis Urinary incontinence -Hold oxybutynin while patient is n.p.o. DVT prophylaxis -Subcu Lovenox CODE STATUS -Full code Charges/Coding Visit Charges Inpatient E&M: 43232 Subs Hosp L3
[2022-02-04] MEDS: hydrALAZINE 20 MG/ML Vial 10 MG IV ×2 (17:07→18:05)
[2022-02-04] MEDS: TPN - Clinimix E 8%-14% Soln 2,000 ML with Multivitamins 10 ML, Trace Elements 1 ML, Fo... 42 ML IV (17:09)
--- NOTE | 2022-02-04 17:30 | PN_ITS ---
Subjective Subjective She is still complaining of abdominal pain. She says that if she gets pain medicine it is fairly controlled. She is very thirsty. She remains with NG tube. She is not having much out of the ostomy. Objective Data Objective Data Vital Signs: Vital Signs Temp Pulse Resp BP Pulse Ox 98.2 F 79 18 169/93 H 97 02/04/22 15:00 02/04/22 17:07 02/04/22 15:00 02/04/22 17:07 02/04/22 15:00 Oxygen Delivery Method Room Air Weight: 97 lb 7.109 oz Body Mass Index (BMI) 19.0 Intake & Output: Intake and Output for Last 24 Hours 02/02/22 02/03/22 02/04/22 23:59 23:59 23:59 Intake Total 3467.08 / 3467.08 3005.0 / 3005.0 2739 / 2739 Output Total 500 / 500 1100 / 1500 725 / 725 Balance 2967.08 / 2967.08 1905.0 / 1505.0 2013 Medical Nutrition Assessment Dietitian: Malnutrition Criteria Met Start: 02/02/22 13:10 Freq: Status: Active Protocol: Document 02/04/22 10:48 RMA (Rec: 02/04/22 10:48 RMA [id number]) Nutrition Malnutrition Evidence of Malnutrition Exists Yes Malnutrition (severe): Acute Illness/Injury Evidenced By Suboptimal Energy Intake ( Severe),Weight Loss (Severe), Physical Changes (Severe) Clinical Problem Acute Disease or Injury Related Malnutrition Etiology Severe protein/calorie malnutrition in the context of acute illness related to abd pain/inadequate oral intake and altered GI function Signs/Symptoms as evidenced by ~10% wt loss in less than 1 month, poor oral intake meeting less than 50% estimated nutrition needs, +NFPA indicating physical signs of malnutrition with severe muscle/fat wasting in the face, neck, clavicle, arms and legs Status Active Problem Recommendation Dietitian Recommendations/Changes 1.) TPN ordered to start with 1 L Clinimix 8% amino acid/14% dextrose @ 42 ml/hr (no lipids) with electrolytes/MVI/ trace elements/folic acid and famotidine as per provider's order. TPN as ordered will provide 798 kcal, 140 gm dextrose, 80 gm protein per day and will meet~57% estimated energy/diana needs and ~123% estimated protein needs . Will increase volume/rate and add lipids as indicated and as tolerated. 2.) Mag/phos ordered 02/04, , 02/06; triglyceride ordered 02/04. Will monitor labs/ electrolytes closely. 3.) Daily weights ordered. Will trend weights as available. 4.) Will monitor for signs/ symptoms of refeeding syndrome and gradually increase TPN as able. 5.) Will monitor for ability to reintroduce PO nutrition and recommend diet/ONS as indicated. Lab / Micro Data Result Diagrams: 02/04/22 05:53 02/04/22 05:53 Labs: Laboratory Results - last 24 hr 02/02/22 06:13: Diff Path Review Reviewed 02/03/22 04:40: Diff Path Review Reviewed 02/04/22 05:53: WBC 17.9 H, RBC 3.85 L, Hgb 9.3 L, Hct 30.1 L, MCV 78.2 L, MCH 24.2 L, MCHC 30.9 L, RDW Std Deviation 47.3 H, RDW Coeff of Travis 16.5 H, Plt Count 259, MPV 9.7, Immature Gran % (Auto) 1.300 H, Neut % (Auto) 87.5 H, Lymph % (Auto) 4.0 L, [place] % (Auto) 6.0, Eos % (Auto) 1.0, Baso % (Auto) 0.2, Absolute Neuts (auto) 15.7 H, Absolute Lymphs (auto) 0.71 L, Nucleated RBC % 0 02/04/22 05:53: Sodium 145, Potassium 3.2 L, Chloride 122 H, Carbon Dioxide 18.0 L, Anion Gap 5, BUN 17, Creatinine 0.40 L, Estim Creat Clear Calc 32.35, Est GFR (MDRD) Af Amer 200, Est GFR (MDRD) Non-Af 165, BUN/Creatinine Ratio 42.7 H, Glucose 79, Calcium 9.7 02/04/22 05:53: Phosphorus 1.2 L, Magnesium 2.0, Triglycerides 50 Micro: Microbiology 02/01/22 08:05 Nasal Secretion SARS-CoV-2 Antigen (Rapid) - Final Radiography Diagnostic Testing: Radiology Impression Upper GI Series 02/04/22 09:30 IMPRESSION: No leakage is seen. Electronically Signed: Sreekanth Kenney MD at 10:03 EDT , Physical Exam Const alert General Appearance: cooperative Orientation / Consciousness: oriented to person HEENT hearing grossly normal bilaterally Head and Scalp: normal to inspection Face and Sinus: face symmetric Nose: external nose normal Mouth: oral and palatal mucosa normal Eyes conjunctivae normal General Eye: normal appearance of both eyes Neck full ROM General: normal visual inspection Lymph Lymphatic: no lymphadenopathy noted Chest inspection of chest normal and palpation of chest normal Chest: symmetrical chest wall rise Resp normal respiratory effort Effort and Inspection: able to speak in complete sentences Cardio regular rate GI non-distended Percussion: normal to percussion Rectal Exam: deferred Neuro Speech: speech normal Gait (Neuro): normal gait Assessment & Plan Assessment/Plan (1) Severe malnutrition: PLAN: Patient will get TPN. I suspect she will need it for a long time due to severe malnutrition. This will not only help in wound healing but it also may help improve her outcome. (2) Microcytic anemia: PLAN: Her hemoglobin is trending down. I suspect this is mostly diluti onal and nutritional. Recommend to check iron studies and if she is iron deficient, transfuse iron. I would hold off on blood transfusions unless hematocrit is less than 30% due to the fact that she did have bilateral pleural effusions on CT scan of the abdomen pelvis. (3) Pneumoperitoneum of unknown etiology: PLAN: Her Gastrografin study did not show any leakage of Gastrografin. The sensitivity of this is not the same as barium due to the fact that the density of the solution decreases the oncotic pressure and makes it less likely to leak. However I suspect that if this was in the upper GI tract than it was a mucosal tear that progressed into a perforation due to severe malnutrition. Continue NG tube to low intermittent suction. I will not perform an upper endoscopy at this time as her white blood cell count is improving with antibiotics. ID consultation for the determination of length of antibiotics for GI perforation. Charges/Coding Visit Charges Inpatient E&M: 85072 Subs Hosp L3
--- NOTE | 2022-02-04 18:23 | CT_ITS ---
STUDY: CT ABDOMEN AND PELVIS WITH CONTRAST REASON FOR EXAM: Female, 77 years old. Abdominal pain RADIATION DOSAGE (If Supplied By Facility): CTDIvol = ( 11.97 ) mGy, DLP = ( 508.19 ) mGycm TECHNIQUE: Transaxial images were obtained from the dome of the diaphragm to the symphysis pubis without oral contrast. Oral and amp; IV Gastrografin and amp; 100mL Isovue-300 was administered. Sagittal and coronal images were reconstructed. Individualized dose optimization techniques were used for this CT. COMPARISON: February 03, 2022. FINDINGS: The visualized lung bases are dependently compressed with left greater than right mild to moderate pleural effusions, similar to prior exam. There is mitral valve annular calcification. The tip of a central line slightly within the right atrium near the SVC-atrial margin. The visualized portions of the heart are within normal limits. Markedly distended gallbladder similar to prior exam, mildly prominent common duct of 8 mm, tapering distally.. Unremarkable liver. Normal spleen. Stable mildly atrophic pancreas. Normal bilateral adrenal glands. No acute abnormality of the kidneys. Oral contrast reached the ethmoid, there is dense inspissated contrast in the sigmoid. Moderate stool in the rectum distending the rectum to 5.8 cm AP. There is a small bowel anastomosis in the left lower quadrant and there are postoperative changes of gastric bypass with enteric tube extending into the jejunum. Mild atherosclerotic calcification of aorta, calcification and at least mild narrowing of intra-abdominal arterial branch origins. Normal inferior vena cava. Normal retroperitoneum. Normal urinary bladder. Multiple calcified fibroids and indeterminate hyperdense nodule of roughly 1.7 cm x 1.9 cm are again noted in the uterus. There is a large hiatal hernia similar to prior exam.. Degenerative spine changes including mild retrolisthesis of L4 and moderate compression deformity of the central L1 body are again noted. Mild free air anterior to the liver, free air and free fluid around the spleen, mild decreased appearance of perisplenic free air and free fluid compared to prior exam. CT/Abdomen/Pelvis WITH Contrast IMPRESSION: Similar findings compared to one day earlier. Loculated left pleural effusion. Slight right pleural effusion. Large ventral hernia containing bowel. Similar free air and free fluid including similar appearance of mildly loculated fluid and air in the left subdiaphragmatic region, possibly developing abscess. Minimal thick-walled capsule at this time. Persistent pneumoperitoneum, mildly improved. No sydnee bowel obstruction. Multifocal bowel postoperative changes. Electronically Signed: Ruth Dunham MD at 22:18 EDT ,
--- NOTE | 2022-02-04 18:24 | NURSING ---
Dr Shaffer called. Patient remains hypertensive after receiving all ordered antihypertensives. She is also now complaining of increased pain to the L upper quadrant. Patient is more restless and irritable, guarding the site of pain with both hands. She denies nausea or any other symptoms besides pain at this time. Orders received for additional pain medications and antihypertensives, Dr Shaffer stated that she will call Dr Casanova to discuss with him, may possibly need another CT Abdomen.
--- NOTE | 2022-02-04 19:12 | PCM.HOSP.N ---
Hospitalist Note Dr. Shaffer notified by nursing staff that patient is having increased abdominal pain, repeat CAT scan with IV and p.o. contrast ordered. Notified by nursing staff that patient tolerated first bottle of p.o. contrast but is now complaining of severe increase in abdominal pain and that patient is currently in A. fib with RVR which patient has history of. Discussed with Dr. Shaffer and decision was made to move forward with CT with only 1 bottle of contrast completed due to rapid increase in severity of pain. Patient's IV metoprolol changed from every 8 hours to every 6 hours as a result of A. fib with RVR to attempt improved control over heart rate.
--- NOTE | 2022-02-04 20:47 | PCM.HOSP.N ---
Hospitalist Note Upon returning from CAT scan patient was noted to be hypotensive at this point and metoprolol was not given secondary to hypotension. Patient ordered normal saline 500 ml bolus x1. Awaiting CT report.
--- NOTE | 2022-02-04 21:35 | NURSING ---
Report given to Roxy horticulture teacher at this time. Aware that pts daughter Melvi was given update on pt and aware of transfer to [facility]. Pts daughter would like updated when ct scan results are known.
[2022-02-04 22:55] LABS: Absolute Lymphocyte Count 0.76 X10^3/uL (0.83-4.51); Absolute Neutrophil Count 14.4 X10^3/uL (2.0-7.7); Basophil# 0.02 X10^3/uL; Basophil% 0.1 % (0-1); Eosinophil# 0.06 X10^3/uL; Eosinophils% 0.4 % (0-5); Hematocrit 31.3 % (37-47); Lymphocyte # 0.76 X10^3/ul (0.83-4.51); Lymphocyte % 4.5 % (19-41); Mean Corp Hgb Conc 31.9 g/dL (32-36); Mean Corpuscular Hgb 24.3 pg (27.0-32.0); Mean Corpuscular Volume 76.2 fL (81-99); Mean Platelet Vol. 9.9 fl (6.2-12.0); Monocyte# 1.64 X10^3/uL; Monocyte% 9.6 % (0-10); NRBC Flagged by Analyzer 0 % (0-5); Neutrophil # 14.37 X10^3/uL (2.7-7.7); Neutrophil % 84.5 % (47-70); POSITIVE DIFFERENTIAL YES; Platelet Count 297 K/mm3 (150-450); RBC Distribution Width CV 16.4 % (11.6-14.6); RBC Distribution Width SD 45.9 fl (35.1-43.9); Red Blood Count 4.11 M/mm3 (4.2-5.4)
[2022-02-04 23:00] LABS: Differential Indicated SCAN CRITERIA MET
[2022-02-04 23:15] LABS: ALB/GLOB Ratio 0.6 RATIO (0.9-2.4); AST(SGOT) 12 U/L (15-37); Alanine Aminotransfer ALT/SGPT 10 U/L (13-56); Albumin, Serum 1.9 g/dL (3.2-5.0); Alkaline Phosphatase 58 U/L (45-117); Anion Gap 7 (5-15); BUN 15 mg/dL (7-18); BUN/Creat Ratio 35.5 RATIO (10-20); Calcium,Total 9.1 mg/dL (8.5-10.1); Chloride 116 mmol/L (98-107); Creatinine, Serum 0.42 mg/dL (0.55-1.02); EST Glomerular Filtration Rate 154 mL/min (>60); Est Glom Filt Rate - Afr Amer 186 mL/min (>60); Estimated Creatinine Clearance 32.35 ml/min; Globulin 3.3 g/dL (2.2-4.2); Glucose 154 mg/dL (74-106); Potassium 2.8 mmol/L (3.5-5.1); Protein, Total 5.2 g/dL (6.4-8.2); Sodium Level 143 mmol/L (136-145)
[2022-02-04 23:16] LABS: Lactic Acid 1.2 mmol/L (0.4-1.9)
[2022-02-04 23:42] LABS: Differential Comment SCANNED
[2022-02-05] VITALS (24 sets, daily range): BP systolic 126–184; BP diastolic 61–104; PULSE 70–99; RESP 20–24; TEMP 37.2–37.8; O2SAT 87–95
[2022-02-05] MEDS: Metoprolol Tartrate 5 MG/5 ML Vial IV ×3 (00:15→17:00)
[2022-02-05 00:21] LABS: Bedside Glucose 166 mg/dL (74-106)
[2022-02-05 00:25] LABS: Phosphorus 2.4 mg/dL (2.5-4.9)
[2022-02-05 04:16] LABS: Absolute Lymphocyte Count 0.78 X10^3/uL (0.83-4.51); Basophil# 0.02 X10^3/uL; Basophil% 0.1 % (0-1); Eosinophil# 0.17 X10^3/uL; Eosinophils% 1.2 % (0-5); Hematocrit 30.3 % (37-47); Hemoglobin 9.5 g/dL (12.0-15.0); Lymphocyte # 0.78 X10^3/ul (0.83-4.51); Lymphocyte % 5.5 % (19-41); Mean Corp Hgb Conc 31.4 g/dL (32-36); Mean Corpuscular Hgb 24.1 pg (27.0-32.0); Mean Corpuscular Volume 76.7 fL (81-99); Mean Platelet Vol. 9.9 fl (6.2-12.0); Monocyte# 1.23 X10^3/uL; Monocyte% 8.6 % (0-10); NRBC Flagged by Analyzer 0 % (0-5); Neutrophil # 11.95 X10^3/uL (2.7-7.7); Neutrophil % 83.9 % (47-70); Platelet Count 284 K/mm3 (150-450); RBC Distribution Width CV 16.3 % (11.6-14.6); RBC Distribution Width SD 45.7 fl (35.1-43.9); Red Blood Count 3.95 M/mm3 (4.2-5.4); White Blood Count 14.3 K/mm3 (4.4-11.0)
[2022-02-05 04:51] LABS: ALB/GLOB Ratio 0.6 RATIO (0.9-2.4); AST(SGOT) 12 U/L (15-37); Alanine Aminotransfer ALT/SGPT 11 U/L (13-56); Albumin, Serum 1.8 g/dL (3.2-5.0); Alkaline Phosphatase 61 U/L (45-117); Anion Gap 6 (5-15); BUN 15 mg/dL (7-18); BUN/Creat Ratio 36.5 RATIO (10-20); Calcium,Total 8.4 mg/dL (8.5-10.1); Chloride 116 mmol/L (98-107); Creatinine, Serum 0.41 mg/dL (0.55-1.02); EST Glomerular Filtration Rate 159 mL/min (>60); Est Glom Filt Rate - Afr Amer 192 mL/min (>60); Estimated Creatinine Clearance 32.35 ml/min; Ferritin 117 ng/mL (8-252); Globulin 3.2 g/dL (2.2-4.2); Glucose 204 mg/dL (74-106); Iron 36 ug/dL (50-170); Iron Binding Capacity,Total 256 ug/dL (250-450); Magnesium 1.4 mg/dL (1.6-2.6); PERCENT IRON SATURATION 14.1 % (15.0-55.0); Phosphorus 2.3 mg/dL (2.5-4.9); Sodium Level 143 mmol/L (136-145)
[2022-02-05] MEDS: metroNIDAZOLE 500 MG/100 ML BAG 100 MG IV (05:15)
[2022-02-05 05:31] LABS: Bedside Glucose 210 mg/dL (74-106)
[2022-02-05] MEDS: Morphine 2 MG/ML Syringe IV ×4 (05:58→22:04)
--- NOTE | 2022-02-05 06:34 | PN.SURG_ITS ---
Subjective Subjective Patient had episode last night of acute increase severity of abdominal pain. Repeat CT suggests slight progression of air and possible evolving abscess. Laboratory yesterday demonstrated a white blood cell count of 17,000 and this morning it is 14.3. She continues to require narcotics for comfort. Objective Data Objective Data Vital Signs: Vital Signs Temp Pulse Resp BP Pulse Ox 99.5 F H 74 24 H 154/74 H 94 02/05/22 05:00 02/05/22 05:25 02/05/22 05:25 02/05/22 05:25 02/05/22 05:25 Oxygen Delivery Method Room Air Weight: 115 lb 1.301 oz Body Mass Index (BMI) 19.0 Intake & Output: Intake and Output for Last 24 Hours 02/03/22 02/04/22 02/05/22 23:59 23:59 23:59 Intake Total 3005.0 / 3005.0 4579 / 4579 150 / 150 Output Total 1100 / 1500 725 / 725 825 / 825 Balance 1905.0 / 1505.0 3854 / 3854 -675 / -675 Medical Nutrition Assessment Dietitian: Malnutrition Criteria Met Start: 02/02/22 13:10 Freq: Status: Active Protocol: Document 02/04/22 10:48 RMA (Rec: 02/04/22 10:48 RMA [id number]) Nutrition Malnutrition Evidence of Malnutrition Exists Yes Malnutrition (severe): Acute Illness/Injury Evidenced By Suboptimal Energy Intake ( Severe),Weight Loss (Severe), Physical Changes (Severe) Clinical Problem Acute Disease or Injury Related Malnutrition Etiology Severe protein/calorie malnutrition in the context of acute illness related to abd pain/inadequate oral intake and altered GI function Signs/Symptoms as evidenced by ~10% wt loss in less than 1 month, poor oral intake meeting less than 50% estimated nutrition needs, +NFPA indicating physical signs of malnutrition with severe muscle/fat wasting in the face, neck, clavicle, arms and legs Status Active Problem Recommendation Dietitian Recommendations/Changes 1.) TPN ordered to start with 1 L Clinimix 8% amino acid/14% dextrose @ 42 ml/hr (no lipids) with electrolytes/MVI/ trace elements/folic acid and famotidine as per provider's order. TPN as ordered will provide 798 kcal, 140 gm dextrose, 80 gm protein per day and will meet~57% estimated energy/diana needs and ~123% estimated protein needs . Will increase volume/rate and add lipids as indicated and as tolerated. 2.) Mag/phos ordered 02/04, , 02/06; triglyceride ordered 02/04. Will monitor labs/ electrolytes closely. 3.) Daily weights ordered. Will trend weights as available. 4.) Will monitor for signs/ symptoms of refeeding syndrome and gradually increase TPN as able. 5.) Will monitor for ability to reintroduce PO nutrition and recommend diet/ONS as indicated. Lab / Micro Data Result Diagrams: 02/05/22 03:30 02/05/22 03:30 Labs: Laboratory Results - last 24 hr 02/02/22 06:13: Diff Path Review Reviewed 02/03/22 04:40: Diff Path Review Reviewed 02/04/22 05:53: Sodium 145, Potassium 3.2 L, Chloride 122 H, Carbon Dioxide 18.0 L, Anion Gap 5, BUN 17, Creatinine 0.40 L, Estim Creat Clear Calc 32.35, Est GFR (MDRD) Af Amer 200, Est GFR (MDRD) Non-Af 165, BUN/Creatinine Ratio 42.7 H, Glucose 79, Calcium 9.7 02/04/22 05:53: Phosphorus 1.2 L, Magnesium 2.0, Triglycerides 50 02/04/22 22:40: WBC 17.0 H, RBC 4.11 L, Hgb 10.0 L, Hct 31.3 L, MCV 76.2 L, MCH 24.3 L, MCHC 31.9 L, RDW Std Deviation 45.9 H, RDW Coeff of Travis 16.4 H, Plt Count 297, MPV 9.9, Immature Gran % (Auto) 0.900, Neut % (Auto) 84.5 H, Lymph % (Auto) 4.5 L, [place] % (Auto) 9.6, Eos % (Auto) 0.4, Baso % (Auto) 0.1, Absolute Neuts (auto) 14.4 H, Absolute Lymphs (auto) 0.76 L, Nucleated RBC % 0, Differential Comment SCANNED, Diff Path Review May foll 02/04/22 22:40: Sodium 143, Potassium 2.8 L, Chloride 116 H, Carbon Dioxide 20.0 L, Anion Gap 7, BUN 15, Creatinine 0.42 L, Estim Creat Clear Calc 32.35, Est GFR (MDRD) Af Amer 186, Est GFR (MDRD) Non-Af 154, BUN/Creatinine Ratio 35.5 H, Glucose 154 H, Calcium 9.1, Total Bilirubin 0.40, AST 12 L, ALT 10 L, Alkaline Phosphatase 58, Total Protein 5.2 L, Albumin 1.9 L, Globulin 3.3, Albumin/Globulin Ratio 0.6 L 02/04/22 22:40: Lactic Acid 1.2 02/04/22 22:40: Phosphorus 2.4 L 02/05/22 00:14: POC Glucose 166 H 02/05/22 03:30: Sodium 143, Potassium 3.0 L, Chloride 116 H, Carbon Dioxide 21.0, Anion Gap 6, BUN 15, Creatinine 0.41 L, Estim Creat Clear Calc 32.35, Est GFR (MDRD) Af Amer 192, Est GFR (MDRD) Non-Af 159, BUN/Creatinine Ratio 36.5 H, Glucose 204 H, Calcium 8.4 L, Phosphorus 2.3 L, Magnesium 1.4 L, Iron 36 L, TIBC 256, Iron Saturation 14.1 L, Ferritin 117, Total Bilirubin 0.40, AST 12 L, ALT 11 L, Alkaline Phosphatase 61, Total Protein 5.0 L, Albumin 1.8 L, Globulin 3.2, Albumin/Globulin Ratio 0.6 L 02/05/22 03:30: WBC 14.3 H, RBC 3.95 L, Hgb 9.5 L, Hct 30.3 L, MCV 76.7 L, MCH 24.1 L, MCHC 31.4 L, RDW Std Deviation 45.7 H, RDW Coeff of Travis 16.3 H, Plt Count 284, MPV 9.9, Immature Gran % (Auto) 0.700, Neut % (Auto) 83.9 H, Lymph % (Auto) 5.5 L, [place] % (Auto) 8.6, Eos % (Auto) 1.2, Baso % (Auto) 0.1, Absolute Neuts (auto) 12.0 H, Absolute Lymphs (auto) 0.78 L, Nucleated RBC % 0 02/05/22 05:24: POC Glucose 210 H Micro: Microbiology 02/01/22 08:05 Nasal Secretion SARS-CoV-2 Antigen (Rapid) - Final Radiography Diagnostic Testing: Radiology Impression Echocardiogram 02/04/22 07:00 Interpretation Summary Normal LV size. Left ventricular systolic function is normal. The estimated ejection fraction is 55 %. Stage 1 diastolic dysfunction. Pulmonary artery systolic pressure is 44 mmHg. The left atrium is mildly enlarged. The right atrium is mildly enlarged. Small pericardial effusion. Moderate size left pleural effusion. Ordering Physician: Nicole Ludwig Referring Physician: Garret Coy Chi Performed By: Chris Rutledge RCS Upper GI Series 02/04/22 09:30 IMPRESSION: No leakage is seen. Electronically Signed: Sreekanth Kenney MD at 10:03 EDT , Abdomen/Pelvis CT 02/04/22 18:23 IMPRESSION: Similar findings compared to one day earlier. Loculated left pleural effusion. Slight right pleural effusion. Large ventral hernia containing bowel. Similar free air and free fluid including similar appearance of mildly loculated fluid and air in the left subdiaphragmatic region, possibly developing abscess. Minimal thick-walled capsule at this time. Persistent pneumoperitoneum, mildly improved. No sydnee bowel obstruction. Multifocal bowel postoperative changes. 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 Progressive pain last night with slight progression of pneumoperitoneum d espite NG tube and bowel rest. By report the patient was taking pantoprazole at home subsequent to her December 27 upper endoscopy dilatation and clip application. As noted she did receive 2 boluses of steroids prior to presenting with the acute abdominal pain. Her malnourishment is noted Unfortunately the patient is not a surgical candidate. She has mesh overlying her small bowel which subsequently was allowed to granulate and then have a split thickness skin graft applied. If an abscess is evolving would need to check with Dr. Kenney to see if this can be percutaneously accessed for drainage. Although the patient is having pain she is afebrile and leukocytosis is improving. If patient and family members are still wanting an all out approach then consideration of tertiary referral should be recommended Her gastric bypass was performed when she was obese in an effort to stop her reflux disease which was aggravating her chronic pulmonary condition with nonresolving pneumonias. This was the correct procedure at that time as a Lázaro fundoplication would fail in the face of morbid obesity. The patient has dwindled significantly from that time. Adarsh Ibarra M.D., F.A.C.S.
[2022-02-05] MEDS: Magnesium Sulfate 4gm/100mL 4 GM/100 ML IV.SOLN. IV (06:51)
--- NOTE | 2022-02-05 07:34 | CON.PCM.CC_ITS ---
Assessment & Plan Assessment/Plan (1) Gastric anastomotic leak: (2) Severe malnutrition: (3) Pneumoperitoneum of unknown etiology: (4) History of Rayray-en-Y gastric bypass: (5) Asthma: (6) Gastroparesis: (7) Failure to thrive in adult: PLAN: RECOMMENDATIONS: 1. Continue aggressive electrolyte repletion 2. Monitor blood pressure closely 3. Discussed with GI and surgery about possible interventions 4. Potential thoracentesis. Add amylase and albumin to routine labs 5. Potential repeat CT to see if IR drainage is possible 6. Continue empiric antibiotics per infectious disease IMPRESSIONS: 1. Pneumoperitoneum of unknown etiology There is some suggestion of a possible phlegmon developing. Patient can and does have a pleural effusion. Patient could have a thoracentesis, but if ruptured esophagus is a concern, albumin and amylase should be added to routine labs. pH would also be helpful. Patient is on empiric antibiotics at this time. Patient does have rebound with suggestion of progression of pneumoperi toneum over the course of the hospitalization. We will have to discuss with surgery and GI on whether patient will need a transfer to a tertiary center for a GI stent versus CV surgery evaluation. 2. Hypotension with reported A. fib/chronic diastolic dysfunction with probable type II pulmonary hypertension Hypotension appears to be related to loss of atrial kick with A. fib. Patient has received significant electrolyte repletion with improvement in sinus rhythm. Blood pressure is currently acceptable. We will continue to monitor closely. Patient is significantly volume positive over the course of the hospitalization. 3. Severe malnutrition with refeeding syndrome/nonanion gap hyperchloremic metabolic acidosis Aggressive electrolyte repletion has been ordered. Patient also receiving TPN. Anticipate high needs of supplementation. Likely repeat electrolytes later this afternoon and continue repletion as tolerated. Will likely shoot for a higher potassium and magnesium given problem #2. 4. Urinary incontinence/extensive abdominal surgical history/advanced age/failure to thrive/history of Rayray-en-Y/reported asthma Complicates care, management, recovery and prognosis. TPN has been ord ered. Patient with significant weight loss recently. Patient is not having any significant NG output or ostomy output. Patient reportedly has asthma/COPD with recent steroids. Unclear if this exacerbated problem #1, but patient does not appear to have significant wheezing at this time. Okay to use bronchodilators from my perspective. HPI Consult Data Date of Consult: 02/05/22 HPI Narrative HPI Narrative: ANDREY DIEHL is a 77 F, with past medical history listed below, who presented to [facility] on 02/01/2022 secondary to a bdominal pain. Patient reportedly had recently seen her PCP secondary to nausea, but no abdominal pain. X-ray at that time had showed some constipation and patient was given magnesium citrate with 2 large bowel movements. Since that time, patient reportedly had had some diarrhea. Patient does have an ostomy secondary to diverticulosis that is over 6 years old. Patient also has an extensive abdominal history including lack of an abdominal anterior wall. Patient reportedly had had an EGD and colonoscopy in 2020. Patient reportedly had also had some significant weight loss recently. Patient did have a history of a gastric bypass secondary to severe reflux. There has been some report of recent steroid therapy. In the ER, patient was afebrile, but hypertensive at 185/113. Patient bev erating room air well. Laboratory work-up at that time showed a relatively unremarkable CBC and CMP except for a slightly elevated glucose of 201. Lactate was 1.4 and coagulation studies were within normal limits. UA was not remarkable. A CT of the abdomen and pelvis showed a small pneumoperitoneum with a small amount of associated free fluid in addition to postsurgical changes. Chest x-ray was unremarkable. The patient was admitted to the floor and had been doing well until last evening. Patient has been treated conservatively with an NG tube and pain control. Patient is significantly positive over the hospital course. Over the last 24 hours, patient had some issues with hypotension on the floor. Patient reportedly had had A. fib with RVR at that time. Upon transfer to the intensive care unit, patient has stabilized. Patient has been in the sinus arrhythmia, but blood pressures have been stable. There is been no indication for pressors at this time. Patient does continue to report abdominal pain, but overall feels it is unchanged compared to previous. Patient localizes this to the left upper quadrant, but has rebound throughout the abdomen. Patient has had very little out of her ostomy or NG. Did discuss with surgery at the bedside. Dr. Ibarra reviewed her surgical history at length with me. Patient does carry a diagnosis of COPD and reportedly has had asthma exacerbations recently with steroids. Patient also had had an esophageal dilation recently. Dr. Ibarra believes that abdominal exploration would be of high risk and likely would need to be done at a tertiary center if indicated. Patient was unable to provide a review of systems secondary to abdominal discomfort. [facility] Medical History Abdominal pain Abdominal pain Acute severe exacerbation of asthma Allergic rhinitis due to allergen Anastomotic ulcer Asthma Atrial fibrillation with rapid ventricular response CAD (coronary artery disease) Congestive heart failure Constipation COPD (chronic obstructive pulmonary disease) Depression Dysphagia Easy bruising Failure to thrive in adult Former smoker Frequent falls Gastroparesis GERD (gastroesophageal reflux disease) Hiatal hernia History of IBS History of irregular heartbeat Hyperlipidemia Insomnia Mixed anxiety depressive disorder Myocardial infarction Obstructive sleep apnea Open wound Perforated diverticulum of large intestine Peristomal hernia Rectal pain Tobacco abuse Vitamin B12 deficiency Vitamin D deficiency Wears glasses Wound, open, scalp with complication Home Medications acetaminophen 650 mg PO Q6H PRN PRN 08/02/16 [History Last Taken Unknown] [id number] fum-folic ac 1 tab PO DAILY 11/13/16 [History Last Taken Unknown] oxybutynin chloride 5 mg PO DAILY 08/24/21 [History Last Taken Unknown] metoclopramide HCl 5 mg tablet 5 mg PO BID #60 tab 01/11/22 [Rx Last Taken Unknown] albuterol sulfate INHALATION PRN 02/01/22 [History Last Taken Unknown] linaclotide [Linzess] See Rx Instructions .ROUTE .COMPLEX 02/01/22 [History Last Taken Unknown] pantoprazole 40 mg PO DAILY 02/01/22 [History Last Taken Unknown] Allergy/AdvReac Type Severity Reaction Status Date / Time hydromorphone [From Dilaudid] Allergy Unknown Unknown Verified 02/01/22 05:54 levofloxacin [From Levaquin] Allergy Hives Verified 02/01/22 05:54 Penicillins Allergy Hives Verified 02/01/22 05:54 Family History Mother No problems noted. Surgical History History of bilateral knee replacement History of cardiac catheterization History of esophagogastroduodenoscopy (EGD) History of tonsillectomy S/P cataract surgery S/P colostomy Social History Smoking Status: Former smoker second hand exposure: No alcohol intake: never substance use type: does not use caffeine: Yes what type of physical activity do you participate in: none frequency: does not exercise seatbelt use: always ROS ROS Narrative See HPI Physical Exam Const alert and oriented x3 Constitutional Narrative: Uncomfortable at rest, but able to focus for short periods of time. General Appearance: in distress Positive for moderate Exam Limitations: no limitations Nutritional Appearance: thin HEENT head/scalp atraumatic and moist oral mucous membranes HEENT Narrative: NG tube in the right nares, Mallampati 2, no thrush Head and Scalp: normocephalic Eyes PERRL and EOMs intact bilaterally Eyes Narrative: Pale conjunctiva bilaterally, no scleral icterus Neck no lymphadenopathy, supple and no JVD Neck Narrative: Trachea midline, no thyroid enlargement Resp normal respiratory effort, no retractions, no use of accessory muscles and clear to auscultation bilaterally Auscultation: Negative for crackles, rales, rhonchi or wheezes Cardio regular rate, S1 normal heart sound, S2 normal heart sound, no murmurs, no rub, no gallops, no clicks and no JVD Cardio Narrative: Irregular rhythm, but sinus on telemetry GI soft to palpation and non-distended; Negative for hepatosplenomegaly GI Narrative: Abdomen is tender diffusely but appears to localize at the left upper quadrant. Rebound noted without significant guarding. Ostomy is pink without output. Extremity no clubbing, cyanosis or edema Peripheral Pulses: Yes pulses 2+ throughout Skin no rashes or lesions noted, no wounds, skin turgor normal, no jaundice, no petechiae and no mottling Skin Narrative: Scattered ecchymotic areas from hospitalization but no other lesions noted Neuro oriented x3, CN's II-XII intact bilaterally, moves all extremities and no focal motor deficits Neuro Narrative: Generalized weakness Sensorium / Orientation: awake and alert Speech: speech normal Psych Psych Narrative: Affect is flattened mood is depressed Mood & Affect: depressed Medical Records Data Medical Nutrition Assessment Dietitian: Malnutrition Criteria Met Start: 02/02/22 13:10 Freq: Status: Active Protocol: Document 02/04/22 10:48 RMA (Rec: 02/04/22 10:48 RMA [id number]) Nutrition Malnutrition Evidence of Malnutrition Exists Yes Malnutrition (severe): Acute Illness/Injury Evidenced By Suboptimal Energy Intake ( Severe),Weight Loss (Severe), Physical Changes (Severe) Clinical Problem Acute Disease or Injury Related Malnutrition Etiology Severe protein/calorie malnutrition in the context of acute illness related to abd pain/inadequate oral intake and altered GI function Signs/Symptoms as evidenced by ~10% wt loss in less than 1 month, poor oral intake meeting less than 50% estimated nutrition needs, +NFPA indicating physical signs of malnutrition with severe muscle/fat wasting in the face, neck, clavicle, arms and legs Status Active Problem Recommendation Dietitian Recommendations/Changes 1.) TPN ordered to start with 1 L Clinimix 8% amino acid/14% dextrose @ 42 ml/hr (no lipids) with electrolytes/MVI/ trace elements/folic acid and famotidine as per provider's order. TPN as ordered will provide 798 kcal, 140 gm dextrose, 80 gm protein per day and will meet~57% estimated energy/diana needs and ~123% estimated protein needs . Will increase volume/rate and add lipids as indicated and as tolerated. 2.) Mag/phos ordered 02/04, , 02/06; triglyceride ordered 02/04. Will monitor labs/ electrolytes closely. 3.) Daily weights ordered. Will trend weights as available. 4.) Will monitor for signs/ symptoms of refeeding syndrome and gradually increase TPN as able. 5.) Will monitor for ability to reintroduce PO nutrition and recommend diet/ONS as indicated. Lab / Micro Data Result Diagrams: 02/05/22 03:30 02/05/22 03:30 Labs: Laboratory Results - last 24 hr 02/02/22 06:13: Diff Path Review Reviewed 02/03/22 04:40: Diff Path Review Reviewed 02/04/22 05:53: Phosphorus 1.2 L, Magnesium 2.0, Triglycerides 50 02/04/22 22:40: WBC 17.0 H, RBC 4.11 L, Hgb 10.0 L, Hct 31.3 L, MCV 76.2 L, MCH 24.3 L, MCHC 31.9 L, RDW Std Deviation 45.9 H, RDW Coeff of Travis 16.4 H, Plt Count 297, MPV 9.9, Immature Gran % (Auto) 0.900, Neut % (Auto) 84.5 H, Lymph % (Auto) 4.5 L, [place] % (Auto) 9.6, Eos % (Auto) 0.4, Baso % (Auto) 0.1, Absolute Neuts (auto) 14.4 H, Absolute Lymphs (auto) 0.76 L, Nucleated RBC % 0, Differential Comment SCANNED, Diff Path Review February02/04/22 22:40: Sodium 143, Potassium 2.8 L, Chloride 116 H, Carbon Dioxide 20.0 L, Anion Gap 7, BUN 15, Creatinine 0.42 L, Estim Creat Clear Calc 32.35, Est GFR (MDRD) Af Amer 186, Est GFR (MDRD) Non-Af 154, BUN/Creatinine Ratio 35.5 H, Glucose 154 H, Calcium 9.1, Total Bilirubin 0.40, AST 12 L, ALT 10 L, Alkaline Phosphatase 58, Total Protein 5.2 L, Albumin 1.9 L, Globulin 3.3, Albumin/Globulin Ratio 0.6 L 02/04/22 22:40: Lactic Acid 1.2 02/04/22 22:40: Phosphorus 2.4 L 02/05/22 00:14: POC Glucose 166 H 02/05/22 03:30: Sodium 143, Potassium 3.0 L, Chloride 116 H, Carbon Dioxide 21.0, Anion Gap 6, BUN 15, Creatinine 0.41 L, Estim Creat Clear Calc 32.35, Est GFR (MDRD) Af Amer 192, Est GFR (MDRD) Non-Af 159, BUN/Creatinine Ratio 36.5 H, Glucose 204 H, Calcium 8.4 L, Phosphorus 2.3 L, Magnesium 1.4 L, Iron 36 L, TIBC 256, Iron Saturation 14.1 L, Ferritin 117, Total Bilirubin 0.40, AST 12 L, ALT 11 L, Alkaline Phosphatase 61, Total Protein 5.0 L, Albumin 1.8 L, Globulin 3.2, Albumin/Globulin Ratio 0.6 L 02/05/22 03:30: WBC 14.3 H, RBC 3.95 L, Hgb 9.5 L, Hct 30.3 L, MCV 76.7 L, MCH 24.1 L, MCHC 31.4 L, RDW Std Deviation 45.7 H, RDW Coeff of Travis 16.3 H, Plt Co unt 284, MPV 9.9, Immature Gran % (Auto) 0.700, Neut % (Auto) 83.9 H, Lymph % (Auto) 5.5 L, [place] % (Auto) 8.6, Eos % (Auto) 1.2, Baso % (Auto) 0.1, Absolute Neuts (auto) 12.0 H, Absolute Lymphs (auto) 0.78 L, Nucleated RBC % 0 02/05/22 05:24: POC Glucose 210 H Radiology Impression Echocardiogram 02/04/22 07:00 Interpretation Summary Normal LV size. Left ventricular systolic function is normal. The estimated ejection fraction is 55 %. Stage 1 diastolic dysfunction. Pulmonary artery systolic pressure is 44 mmHg. The left atrium is mildly enlarged. The right atrium is mildly enlarged. Small pericardial effusion. Moderate size left pleural effusion. Ordering Physician: Nicole Ludwig Referring Physician: Garret Coy Chi Performed By: Chris Rutledge RCS [facility] 02/04/22 09:30 IMPRESSION: No leakage is seen. Electronically Signed: Sreekanth Kenney MD at 10:03 EDT , Abdomen/Pelvis CT 02/04/22 18:23 IMPRESSION: Similar findings compared to one day earlier. Loculated left pleural effusion. Slight right pleural effusion. Large ventral hernia containing bowel. Similar free air and free fluid including similar appearance of mildly loculated fluid and air in the left subdiaphragmatic region, possibly developing abscess. Minimal thick-walled capsule at this time. Persistent pneumoperitoneum, mildly improved. No sydnee bowel obstruction. Multifocal bowel postoperative changes. Electronically Signed: Ruth Dunham MD at 22:18 EDT , Charges/Coding Visit Charges Inpatient E&M: 08190 Init Hosp L3
[2022-02-05] MEDS: hydrALAZINE 20 MG/ML Vial IV ×2 (09:34→19:46)
[2022-02-05] MEDS: 0.9% Saline Lock 10 ML Syringe IV ×4 (09:34→17:01)
--- NOTE | 2022-02-05 10:02 | CON.PCM.ID_ITS ---
Assessment & Plan Assessment/Plan (1) Pneumoperitoneum of unknown etiology: PLAN: CT shows worsening despite medical therapy. Transfer planned for further surgical eval. Will stop flagyl, continue zosyn. Pt and both with covid vaccine x3. Will follow, thank you (2) History of Mayra-en-Y gastric bypass: (3) History of colostomy: HPI Consult Data Date of Consult: 02/05/22 HPI Narrative HPI Narrative: ANDREY DIEHL, is a 77 F with lap mayra-en-y in 2016, c omplicated by perforated sigmoid diverticulum a month later requiring diverting sigmoid colostomy then mesh placement. Presented here 02/01 with sudden onset severe LLQ abd pain. Had not been feeling well for 2 days prior. No fever, no blood in stool. Came to ED, CT showed perforation, seen by GI and surgery, has been on medical management with TPN and zosyn/flagyl. Pain is improved but not resolved. Repeat CT shows worsening. Plan at this point is for transfer to tertiary care center. Pt and both with covid vaccine x3. Full ROS performed and neg except as noted above. [facility] Medical History Abdominal pain Abdominal pain Acute severe exacerbation of asthma Allergic rhinitis due to allergen Anastomotic ulcer Asthma Atrial fibrillation with rapid ventricular response CAD (coronary artery disease) Congestive heart failure Constipation COPD (chronic obstructive pulmonary disease) Depression Dysphagia Easy bruising Failure to thrive in adult Former smoker Frequent falls Gastroparesis GERD (gastroesophageal reflux disease) Hiatal hernia History of IBS History of irregular heartbeat Hyperlipidemia Insomnia Mixed anxiety depressive disorder Myocardial infarction Obstructive sleep apnea Open wound Perforated diverticulum of large intestine Peristomal hernia Rectal pain Tobacco abuse Vitamin B12 deficiency Vitamin D deficiency Wears glasses Wound, open, scalp with complication Home Medications acetaminophen 650 mg PO Q6H PRN PRN 08/02/16 [History Last Taken Unknown] fcuxnlvs-irt-hqjt fum-folic ac 1 tab PO DAILY 11/13/16 [History Last Taken Unknown] oxybutynin chloride 5 mg PO DAILY 08/24/21 [History Last Taken Unknown] metoclopramide HCl 5 mg tablet 5 mg PO BID #60 tab 01/11/22 [Rx Last Taken Unknown] albuterol sulfate INHALATION PRN 02/01/22 [History Last Taken Unknown] linaclotide [Linzess] See Rx Instructions .ROUTE .COMPLEX 02/01/22 [History Last Taken Unknown] pantoprazole 40 mg PO DAILY 02/01/22 [History Last Taken Unknown] Allergy/AdvReac Type Severity Reaction Status Date / Time hydromorphone [From Dilaudid] Allergy Unknown Unknown Verified 02/01/22 05:54 levofloxacin [From Levaquin] Allergy Hives Verified 02/01/22 05:54 Penicillins Allergy Hives Verified 02/01/22 05:54 Family History Mother No problems noted. Surgical History History of bilateral knee replacement History of cardiac catheterization History of esophagogastroduodenoscopy (EGD) History of tonsillectomy S/P cataract surgery S/P colostomy Social History Smoking Status: Former smoker second hand exposure: No alcohol intake: never substance use type: does not use caffeine: Yes what type of physical activity do you participate in: none frequency: does not exercise seatbelt use: always Physical Exam Const alert, oriented x3 and no apparent distress General Appearance: cooperative Exam Limitations: no limitations HEENT normocephalic and head/scalp atraumatic Eyes PERRL and EOMs intact bilaterally Neck supple and No nodes Resp normal air movement and clear to auscultation bilaterally Cardio regular rate and regular rhythm GI soft to palpation and non-distended GI Narrative: mild soreness Palpation: tender Extremity no clubbing, cyanosis or edema Skin no rashes or lesions noted Neuro CN's II-XII intact bilaterally Medical Records Data Medical Nutrition Assessment Dietitian: Malnutrition Criteria Met Start: 02/02/22 13:10 Freq: Status: Active Protocol: Document 02/04/22 10:48 RMA (Rec: 02/04/22 10:48 RMA [id number]) Nutrition Malnutrition Evidence of Malnutrition Exists Yes Malnutrition (severe): Acute Illness/Injury Evidenced By Suboptimal Energy Intake ( Severe),Weight Loss (Severe), Physical Changes (Severe) Clinical Problem Acute Disease or Injury Related Malnutrition Etiology Severe protein/calorie malnutrition in the context of acute illness related to abd pain/inadequate oral intake and altered GI function Signs/Symptoms as evidenced by ~10% wt loss in less than 1 month, poor oral intake meeting less than 50% estimated nutrition needs, +NFPA indicating physical signs of malnutrition with severe muscle/fat wasting in the face, neck, clavicle, arms and legs Status Active Problem Recommendation Dietitian Recommendations/Changes 1.) TPN ordered to start with 1 L Clinimix 8% amino acid/14% dextrose @ 42 ml/hr (no lipids) with electrolytes/MVI/ trace elements/folic acid and famotidine as per provider's order. TPN as ordered will provide 798 kcal, 140 gm dextrose, 80 gm protein per day and will meet~57% estimated energy/diana needs and ~123% estimated protein needs . Will increase volume/rate and add lipids as indicated and as tolerated. 2.) Mag/phos ordered 02/04, , 02/06; triglyceride ordered 02/04. Will monitor labs/ electrolytes closely. 3.) Daily weights ordered. Will trend weights as available. 4.) Will monitor for signs/ symptoms of refeeding syndrome and gradually increase TPN as able. 5.) Will monitor for ability to reintroduce PO nutrition and recommend diet/ONS as indicated. Lab / Micro Data Result Diagrams: 02/05/22 03:30 02/05/22 03:30 Labs: Laboratory Results - last 24 hr 02/02/22 06:13: Diff Path Review Reviewed 02/03/22 04:40: Diff Path Review Reviewed 02/04/22 05:53: Phosphorus 1.2 L, Magnesium 2.0, Triglycerides 50 02/04/22 22:40: WBC 17.0 H, RBC 4.11 L, Hgb 10.0 L, Hct 31.3 L, MCV 76.2 L, MCH 24.3 L, MCHC 31.9 L, RDW Std Deviation 45.9 H, RDW Coeff of Travis 16.4 H, Plt Count 297, MPV 9.9, Immature Gran % (Auto) 0.900, Neut % (Auto) 84.5 H, Lymph % (Auto) 4.5 L, [place] % (Auto) 9.6, Eos % (Auto) 0.4, Baso % (Auto) 0.1, Absolute Neuts (auto) 14.4 H, Absolute Lymphs (auto) 0.76 L, Nucleated RBC % 0, Differential Comment SCANNED, Diff Path Review February02/04/22 22:40: Sodium 143, Potassium 2.8 L, Chloride 116 H, Carbon Dioxide 20.0 L, Anion Gap 7, BUN 15, Creatinine 0.42 L, Estim Creat Clear Calc 32.35, Est GFR (MDRD) Af Amer 186, Est GFR (MDRD) Non-Af 154, BUN/Creatinine Ratio 35.5 H, Glucose 154 H, Calcium 9.1, Total Bilirubin 0.40, AST 12 L, ALT 10 L, Alkaline Phosphatase 58, Total Protein 5.2 L, Albumin 1.9 L, Globulin 3.3, Albumin/Gl obulin Ratio 0.6 L 02/04/22 22:40: Lactic Acid 1.2 02/04/22 22:40: Phosphorus 2.4 L 02/05/22 00:14: POC Glucose 166 H 02/05/22 03:30: Sodium 143, Potassium 3.0 L, Chloride 116 H, Carbon Dioxide 21.0, Anion Gap 6, BUN 15, Creatinine 0.41 L, Estim Creat Clear Calc 32.35, Est GFR (MDRD) Af Amer 192, Est GFR (MDRD) Non-Af 159, BUN/Creatinine Ratio 36.5 H, Glucose 204 H, Calcium 8.4 L, Phosphorus 2.3 L, Magnesium 1.4 L, Iron 36 L, TIBC 256, Iron Saturation 14.1 L, Ferritin 117, Total Bilirubin 0.40, AST 12 L, ALT 11 L, Alkaline Phosphatase 61, Total Protein 5.0 L, Albumin 1.8 L, Globulin 3.2, Albumin/Globulin Ratio 0.6 L 02/05/22 03:30: WBC 14.3 H, RBC 3.95 L, Hgb 9.5 L, Hct 30.3 L, MCV 76.7 L, MCH 24.1 L, MCHC 31.4 L, RDW Std Deviation 45.7 H, RDW Coeff of Travis 16.3 H, Plt Count 284, MPV 9.9, Immature Gran % (Auto) 0.700, Neut % (Auto) 83.9 H, Lymph % (Auto) 5.5 L, Branch % (Auto) 8.6, Eos % (Auto) 1.2, Baso % (Auto) 0.1, Absolute Neuts (auto) 12.0 H, Absolute Lymphs (auto) 0.78 L, Nucleated RBC % 0 02/05/22 05:24: POC Glucose 210 H Radiology Impression Echocardiogram 02/04/22 07:00 Interpretation Summary Normal LV size. Left ventricular systolic function is normal. The estimated ejection fraction is 55 %. Stage 1 diastolic dysfunction. Pulmonary artery systolic pressure is 44 mmHg. The left atrium is mildly enlarged. The right atrium is mildly enlarged. Small pericardial effusion. Moderate size left pleural effusion. _ Ordering Physician: Nicole Ludwig Referring Physician: Garret Coy Chi Performed By: Chris Rutledge RCS [facility] 02/04/22 09:30 IMPRESSION: No leakage is seen. Electronically Signed: Sreekanth Kenney MD at 10:03 EDT , Abdomen/Pelvis CT 02/04/22 18:23 IMPRESSION: Similar findings compared to one day earlier. Loculated left pleural effusion. Slight right pleural effusion. Large ventral hernia containing bowel. Similar free air and free fluid including similar appearance of mildly loculated fluid and air in the left subdiaphragmatic region, possibly developing abscess. Minimal thick-walled capsule at this time. Persistent pneumoperitoneum, mildly improved. No sydnee bowel obstruction. Multifocal bowel postoperative changes. Electronically Signed: Ruth Dunham MD at 22:18 EDT ,
[2022-02-05 11:25] LABS: Bedside Glucose 208 mg/dL (74-106)
--- NOTE | 2022-02-05 13:41 | PCM.PN.HOSP ---
Subjective Subjective Patient developed hypotension and increased left upper quadrant pain overnight. Repeat CT was performed and patient now showing abscess formation with stable to decreased pneumoperitoneum. Unfortunately interventional radiology here feels that her abdomen is too complex to place an IR drain here and the patient will need to be transferred. I have discussed the case with [facility] and they have accepted for admission however we are currently awaiting bed. Objective Data Objective Data Vital Signs: Vital Signs Temp Pulse Resp BP Pulse Ox 99 F 95 20 H 133/76 H 87 02/05/22 11:00 02/05/22 11:21 02/05/22 11:00 02/05/22 11:21 02/05/22 12:20 Oxygen Flow Rate (L/min) 2 Oxygen Delivery Method Nasal Cannula Weight: 52.2 kg Body Mass Index (BMI) 19.0 Intake & Output: Intake and Output for Last 24 Hours 02/03/22 02/04/22 02/05/22 23:59 23:59 23:59 Intake Total 3005.0 / 3005.0 4579 / 4579 2030.3333 / 2030.3333 Output Total 1100 / 1500 725 / 725 1600 / 1600 Balance 1905.0 / 1505.0 3854 / 3854 430.3333 / 430.3333 Medical Nutrition Assessment Dietitian: Malnutrition Criteria Met Start: 02/02/22 13:10 Freq: Status: Active Protocol: Document 02/05/22 12:17 (Rec: 02/05/22 12:17 [id number]) Nutrition Malnutrition Evidence of Malnutrition Exists Yes Malnutrition (severe): Acute Illness/Injury Evidenced By Suboptimal Energy Intake ( Severe),Weight Loss (Severe), Physical Changes (Severe) Clinical Problem Acute Disease or Injury Related Malnutrition Etiology Severe protein/calorie malnutrition in the context of acute illness related to abd pain/inadequate oral intake and altered GI function Signs/Symptoms as evidenced by ~10% wt loss in less than 1 month, poor oral intake meeting less than 50% estimated nutrition needs, +NFPA indicating physical signs of malnutrition with severe muscle/fat wasting in the face, neck, clavicle, arms and legs Status Active Problem Recommendation Dietitian Recommendations/Changes 1.) For Day #2 TPN: recommend 1.5L 8%AA/14% dextrose at 63mL /hour to provide 1196 calories , 120 g protein 2.) Will monitor labs/ electrolytes closely. 3.) Daily weights ordered. Will trend weights as available. 4.) Will monitor for signs/ symptoms of refeeding syndrome . 5.) Will monitor for ability to reintroduce PO nutrition and recommend diet/ONS as indicated. Lab / Micro Data Result Diagrams: 02/05/22 03:30 02/05/22 03:30 Labs: Laboratory Results - last 24 hr 02/04/22 22:40: WBC 17.0 H, RBC 4.11 L, Hgb 10.0 L, Hct 31.3 L, MCV 76.2 L, MCH 24.3 L, MCHC 31.9 L, RDW Std Deviation 45.9 H, RDW Coeff of Travis 16.4 H, Plt Count 297, MPV 9.9, Immature Gran % (Auto) 0.900, Neut % (Auto) 84.5 H, Lymph % (Auto) 4.5 L, [place] % (Auto) 9.6, Eos % (Auto) 0.4, Baso % (Auto) 0.1, Absolute Neuts (auto) 14.4 H, Absolute Lymphs (auto) 0.76 L, Nucleated RBC % 0, Differential Comment SCANNED, Diff Path Review February foll 02/04/22 22:40: Sodium 143, Potassium 2.8 L, Chloride 116 H, Carbon Dioxide 20.0 L, Anion Gap 7, BUN 15, Creatinine 0.42 L, Estim Creat Clear Calc 32.35, Est GFR (MDRD) Af Amer 186, Est GFR (MDRD) Non-Af 154, BUN/Creatinine Ratio 35.5 H, Glucose 154 H, Calcium 9.1, Total Bilirubin 0.40, AST 12 L, ALT 10 L, Alkaline Phosphatase 58, Total Protein 5.2 L, Albumin 1.9 L, Globulin 3.3, Albumin/Globulin Ratio 0.6 L 02/04/22 22:40: Lactic Acid 1.2 02/04/22 22:40: Phosphorus 2.4 L 02/05/22 00:14: POC Glucose 166 H 02/05/22 03:30: Sodium 143, Potassium 3.0 L, Chloride 116 H, Carbon Dioxide 21.0, Anion Gap 6, BUN 15, Creatinine 0.41 L, Estim Creat Clear Calc 32.35, Est GFR (MDRD) Af Amer 192, Est GFR (MDRD) Non-Af 159, BUN/Creatinine Ratio 36.5 H, Glucose 204 H, Calcium 8.4 L, Phosphorus 2.3 L, Magnesium 1.4 L, Iron 36 L, TIBC 256, Iron Saturation 14.1 L, Ferritin 117, Total Bilirubin 0.40, AST 12 L, ALT 11 L, Alkaline Phosphatase 61, Total Protein 5.0 L, Albumin 1.8 L, Globulin 3.2, Albumin/Globulin Ratio 0.6 L 02/05/22 03:30: WBC 14.3 H, RBC 3.95 L, Hgb 9.5 L, Hct 30.3 L, MCV 76.7 L, MCH 24.1 L, MCHC 31.4 L, RDW Std Deviation 45.7 H, RDW Coeff of Travis 16.3 H, Plt Count 284, MPV 9.9, Immature Gran % (Auto) 0.700, Neut % (Auto) 83.9 H, Lymph % (Auto) 5.5 L, [place] % (Auto) 8.6, Eos % (Auto) 1.2, Baso % (Auto) 0.1, Absolute Neuts (auto) 12.0 H, Absolute Lymphs (auto) 0.78 L, Nucleated RBC % 0 02/05/22 05:24: POC Glucose 210 H 02/05/22 11:18: POC Glucose 208 H Micro: Microbiology 02/01/22 08:05 Nasal Secretion SARS-CoV-2 Antigen (Rapid) - Final Radiography Diagnostic Testing: Radiology Impression Echocardiogram 02/04/22 07:00 Interpretation Summary Normal LV size. Left ventricular systolic function is normal. The estimated ejection fraction is 55 %. Stage 1 diastolic dysfunction. Pulmonary artery systolic pressure is 44 mmHg. The left atrium is mildly enlarged. The right atrium is mildly enlarged. Small pericardial effusion. Moderate size left pleural effusion. Ordering Physician: Nicole Ludwig Referring Physician: Garret oCy Chi Performed By: Chris Rutledge RCS Abdomen/Pelvis CT 02/04/22 18:23 IMPRESSION: Similar findings compared to one day earlier. Loculated left pleural effusion. Slight right pleural effusion. Large ventral hernia containing bowel. Similar free air and free fluid including similar appearance of mildly loculated fluid and air in the left subdiaphragmatic region, possibly developing abscess. Minimal thick-walled capsule at this time. Persistent pneumoperitoneum, mildly improved. No sydnee bowel obstruction. Multifocal bowel postoperative changes. Electronically Signed: Ruth Dunham MD at 22:18 EDT , Physical Exam Const alert, oriented x3 and no apparent distress Constitutional Narrative: Elderly white female lying in bed, appears thin and malnourished, patient appears nontoxic however she does appear uncomfortable, nursing at bedside General Appearance: cooperative Exam Limitations: no limitations Nutritional Appearance: cachectic HEENT normocephalic and head/scalp atraumatic HEENT Narrative: Lips and oropharynx are dry, NG is in right nares, hearing appears to be normal Head and Scalp: normocephalic Eyes PERRL and EOMs intact bilaterally Eyes Narrative: Pale conjunctiva bilaterally, no scleral icterus Neck no lymphadenopathy, supple and no JVD Neck Narrative: Trachea midline, no thyroid enlargement Resp normal respiratory effort, no retractions, no use of accessory muscles and clear to auscultation bilaterally Auscultation: Negative for crackles, rales, rhonchi or wheezes Cardio regular rate, regular rhythm, S1 normal heart sound, S2 normal heart sound, no murmurs, no rub, no gallops, no clicks and no JVD Cardio Narrative: Patient is now in normal sinus rhythm with intermittent PACs GI soft to palpation and non-distended; Negative for hepatosplenomegaly GI Narrative: Abdomen is tender diffusely but soft predominant tenderness is in the left upper quadrant, no distention noted, bowel sounds are hypoactive, ostomy with good output, ventral defect noted Extremity normal to inspection, full ROM and no clubbing, cyanosis or edema Peripheral Pulses: Yes pulses 2+ throughout Skin no rashes or lesions noted, no wounds, skin turgor normal, no jaundice, no petechiae and no mottling Skin Narrative: Scattered ecchymotic areas from hospitalization but no other lesions noted Neuro oriented x3, CN's II-XII intact bilaterally, moves all extremities and no focal motor deficits Neuro Narrative: Marked generalized weakness Sensorium / Orientation: awake and alert Speech: speech normal Psych affect normal Psych Narrative: Affect is flattened mood is depressed Mood & Affect: depressed Assessment & Plan Assessment/Plan (1) Pneumoperitoneum of unknown etiology: (2) Abdominal pain: QUALIFIERS: Abdominal location: epigastric Qualified Code(s): R10.13 - Epigastric pain (3) Leukocytosis: (4) Microcytic anemia: (5) Hyperchloremia: (6) Hypokalemia: (7) Hypophosphatemia: (8) Severe malnutrition: (9) Hypomagnesemia: (10) Pleural effusion: PLAN: Pneumoperitoneum of unknown etiology with suspected peritonitis -Upper GI series showed no perforation or leak--> suspect that this is now walled off -Fady CT scan done last evening shows mildly improved but persistent pneumoperitoneum with a loculated area of fluid and air in the left subdiaphragmatic region that is suspicious for developing abscess and a left loculated pleural effusion -PERC drain ordered but unfortunately unable to do here secondary to complicated abdomen -Patient transferred to [facility] and currently awaiting bed -Will need IR drainage and cultures to narrow antibiotics -Continue NG tube -Continue as needed pain medication -Continue IV antibiotics as ordered -White count continues to improve on IV antibiotics -ID has been consulted for their opinion on antibiotics -Continue TPN -DC GI/general surgery input -Await imaging for further plans Left-sided pleural effusion -Suspect this is reactive secondary to left upper quadrant abscess and infectious process -Chest x-ray in a.m. -If persistent will recommend thoracentesis if patient is not transferred before Leukocytosis -Secondary to the above -Continues to trend down -Continue IV antibiotics -Blood cultures remain pending Non-anion gap metabolic acidosis secondary to hyperchloremia -Resolved with change in IV fluids -We will discontinue IV fluids today none the patient is on TPN Hypokalemia - repeat 40 mill equivalents of potassium chloride IV -Repeat in a.m. Hypophosphatemia -Repeat sodium phosphorus bolus -Repeat Phos in a.m. Hypomagnesemia -Magnesium bolus -Repeat mag in a.m. Severe malnutrition -Significant weight loss with marked decreased p.o. intake -PICC in place and patient is now on TPN -Anticipate prolonged n.p.o. status -Once able to take p.o. will need supplements added -Dietitian is following Microcytic anemia -Hemoglobin was normal on admission -Hemoglobin is currently stable -No signs of acute GI bleeding -Microcytosis appears to be chronic -Patient appears to be mildly iron deficient and would recommend p.o. 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 -Patient has a remaining large abdominal wall hernia and will need outpatient follow-up Paroxysmal atrial fibrillation -Continue IV metoprolol -Echocardiogram shows an EF of 55% with stage I diastolic dysfunction and pulmonary artery systolic pressure 44 mmHg, mild biatrial enlargement -No anticoagulation secondary to possible surgical needs History of GI bleed -EGD done in August 2021 which showed moderate Schatzki's ring, stenosed Billroth I gastric duodenostomy with erosion, erythema and friability in the mucosa with hemorrhagic appearance and an intact staple line -Patient also had multiple jejunal ulcers with visible vessel which was treated -Colonoscopy was also done and showed redundant colon with patent and sigmoid colostomy characterized by ulceration and mild stenosis Urinary incontinence -Hold oxybutynin while patient is n.p.o. DVT prophylaxis -Subcu Lovenox CODE STATUS -Full code Daughter was at the bedside and plan explained to her. She was agreeable with transfer with first choice being [facility]. I ended up calling a tertiary hospitals but no significant bed availability for immediate transfer was able to be obtained and therefore she was placed on a wait list at [facility]. I have talked to both surgery and general medicine there. Surgery has accepted for transfer. Awaiting bed. Charges/Coding Visit Charges Inpatient E&M: 67047 Subs Hosp L3
[2022-02-05] MEDS: TPN - Clinimix E 8%-14% Soln 2,000 ML with Multivitamins 10 ML, Trace Elements 1 ML, Fo... 63 ML IV (16:03)
[2022-02-05 17:20] LABS: Bedside Glucose 237 mg/dL (74-106)
[2022-02-06] VITALS (23 sets, daily range): BP systolic 129–187; BP diastolic 74–106; PULSE 49–101; RESP 18–23; TEMP 36.8–37.7; O2SAT 86–97
--- NOTE | 2022-02-06 | IMM_PTH ---
PATIENT: ANDREY DIEHL LOC: [facility] U#:[id number] AGE/SX: 77/F ROOM: [facility] RE02/01/[address]: Dr. Myrna Shaffer DO : 1945 BED: 1 DIS: 02/09/2022 SPEC #: [id number] RECD: 02/07/22 12:08 STATUS: NINA REQ #: [id number] ADOLFO: 02/06/22 00:[address]: Myrna Shaffer DEPT: IMMUNOHISTOCHEMISTRY RECD BY: Destiny Serna ENTERED: 02/07/22 12:10 SP TYPE: IMMUNO OTHR DR: MD Dr. Maximus Brice DO Dr. Nana Yaa Koram, MD Dr. Robert D Cebul, MD Dr. Robert Leininger, MD Dr. Tai Chi Kwok, MD Christina Muller, ARCHITECTURE DRAFTER-C Tissues: THORACIC FLUID Procedures: NAPSIN A (add) Henry Ret (add) CK20 (add) CK5-6 (add) CK7 (add) MACRO (add) TTF1 (add) Vimentin (add) Pankeratin (initial) P40 (add) PHYSICIAN & [place] [id number] SPECIMEN INFORMATION: Tissue Source: Thoracentesis fluid Clinical Info: Left pleural effusion Specimen Number: [id number] CPT code: 66438, 28916 x9 METHODOLOGY: Deparaffinized sections of prefer/formalin-fixed tissue or PAP/DQ stained slides are incubated with monoclonal/polyclonal antibodies/oligonucleotide probes. Localization is made via biotin free immunoperoxidase method. Appropriate controls are performed and reacted as expected. Results on target cell population are indicated in the following table: RESULTS: ANTIBODY / CLONE RESULT AE1-3 (AE1/AE3/PCK26) positive CK7 (OV-TL12/30) positive CK20 (KS20.8) negative Vimentin (V9) positive Macro (HAM-56) positive TTF-1 (8G7G3/1) negative Napsin A (Rabbit Polyclonal) negative CALRET (polyclonal) positive CK5-6 (D5 & 1684) positive P40 (BC28) negative These tests were developed and their performance characteristics determined by [facility]. They may not have been cleared or approved by the U.S. Food and Drug Administration. The FDA has determined that such clearance or approval is not necessary. The above immunohistochemical/dualISH markers are ordered and reviewed by the Pathologist. INTERPRETATION: Thoracentesis fluid (cell block): Negative for malignant cells. AM:kimmie 02/08/2022
--- NOTE | 2022-02-06 | FLU_PTH ---
PATIENT: ANDREY DIEHL LOC: [facility] U#:[id number] AGE/SX: 77/F ROOM: [facility] RE02/01/[address]: Dr. Myrna Shaffer DO : 1945 BED: 1 DIS: 02/09/2022 SPEC #: [id number] RECD: 02/06/22 10:58 STATUS: NINA REQ #: [id number] ADOLFO: 02/06/22 00:[address]: Myrna Shaffer DEPT: CYTOLOGY RECD BY: Ying Baldwin ENTERED: 02/06/22 12:49 SP TYPE: Fluid OTHR DR: MD Dr. Maximus Brice DO Dr. Nana Yaa Koram, MD Dr. Robert D Cebul, MD Dr. Robert Leininger, MD Dr. Tai Chi Kwok, MD Christina Muller, FACE WORKER-C Tissues: Pleural fluid, NOS Procedures: Special Stain Group II Surgery Specimen Level IV Cytospin Fluid HEADER OPERATION: Ultrasound-guided left thoracentesis PRE-OP DIAGNOSIS: Left pleural effusion TISSUE SUBMITTED: Thoracentesis fluid for cytology DIAGNOSIS CYTOLOGY Thoracentesis fluid for cytology (cytospin): Acute inflammation. Reactive mesothelial cells. See comment. AM:kimmie 02/07/2022 COMMENT Immunohistochemistry ([id number]) supports the above diagnosis. Case has been reviewed in consultation with Dr. Baldwin who concurs with the above diagnosis. IDC:SJ CYTOLOGY STUDY Slides are reviewed. CYTOLOGY GROSS Received is 70 ml of yellow cloudy fluid labeled with the patient's name and and designated per the requisition as thoracentesis. Submitted for cytology preparation including cell block. / kimmie 02/06/2022 TC:5 CPT: 47637, 81809
[2022-02-06] MEDS: Metoprolol Tartrate 5 MG/5 ML Vial IV ×4 (00:06→18:38)
[2022-02-06 00:16] LABS: Bedside Glucose 241 mg/dL (74-106)
[2022-02-06] MEDS: Morphine 2 MG/ML Syringe IV ×4 (01:24→21:16)
[2022-02-06 03:23] LABS: Absolute Lymphocyte Count 1.22 X10^3/uL (0.83-4.51); Absolute Neutrophil Count 10.5 X10^3/uL (2.0-7.7); Basophil# 0.02 X10^3/uL; Basophil% 0.1 % (0-1); Eosinophil# 0.19 X10^3/uL; Eosinophils% 1.4 % (0-5); Hematocrit 32.6 % (37-47); Hemoglobin 10.3 g/dL (12.0-15.0); Lymphocyte # 1.22 X10^3/ul (0.83-4.51); Lymphocyte % 8.9 % (19-41); Mean Corp Hgb Conc 31.6 g/dL (32-36); Mean Platelet Vol. 9.9 fl (6.2-12.0); Monocyte# 1.79 X10^3/uL; NRBC Flagged by Analyzer 0 % (0-5); Neutrophil # 10.45 X10^3/uL (2.7-7.7); Neutrophil % 75.9 % (47-70); POSITIVE DIFFERENTIAL YES; Platelet Count 280 K/mm3 (150-450); RBC Distribution Width CV 16.4 % (11.6-14.6); RBC Distribution Width SD 45.4 fl (35.1-43.9); Red Blood Count 4.29 M/mm3 (4.2-5.4); White Blood Count 13.8 K/mm3 (4.4-11.0)
[2022-02-06 03:35] LABS: Anion Gap 4 (5-15); BUN 19 mg/dL (7-18); Calcium,Total 8.2 mg/dL (8.5-10.1); Chloride 117 mmol/L (98-107); Creatinine, Serum 0.48 mg/dL (0.55-1.02); EST Glomerular Filtration Rate 135 mL/min (>60); Est Glom Filt Rate - Afr Amer 163 mL/min (>60); Glucose 218 mg/dL (74-106); Phosphorus 1.5 mg/dL (2.5-4.9); Potassium 3.4 mmol/L (3.5-5.1); Sodium Level 144 mmol/L (136-145)
[2022-02-06 03:49] LABS: Differential Indicated SCAN CRITERIA MET
[2022-02-06 03:51] LABS: Differential Comment SCANNED
--- NOTE | 2022-02-06 05:37 | PCM.PN.SRG ---
Subjective Subjective Emotionally appears to be fatiguing Has been OOB to chair, minimal ambulation Still notes LUQ pain. Possibly slightly improved Objective Data Objective Data Vital Signs: Vital Signs Temp Pulse Resp BP Pulse Ox 100 F H 90 23 H 187/97 H 97 02/06/22 00:00 02/06/22 05:32 02/06/22 00:00 02/06/22 05:32 02/06/22 01:28 Oxygen Flow Rate (L/min) 2 Oxygen Delivery Method Nasal Cannula Weight: 115 lb 1.301 oz Body Mass Index (BMI) 19.0 Intake & Output: Intake and Output for Last 24 Hours 02/04/22 02/05/22 02/06/22 23:59 23:59 23:59 Intake Total 4579 / 4579 3162.2333 / 3162.2333 50 / 50 Output Total 725 / 725 2950 / 2950 Balance 3854 / 3854 212.2333 / 212.2333 50 / 50 Medical Nutrition Assessment Dietitian: Malnutrition Criteria Met Start: 02/02/22 13:10 Freq: Status: Active Protocol: Document 02/05/22 12:17 AG (Rec: 02/05/22 12:17 [id number]) Nutrition Malnutrition Evidence of Malnutrition Exists Yes Malnutrition (severe): Acute Illness/Injury Evidenced By Suboptimal Energy Intake ( Severe),Weight Loss (Severe), Physical Changes (Severe) Clinical Problem Acute Disease or Injury Related Malnutrition Etiology Severe protein/calorie malnutrition in the context of acute illness related to abd pain/inadequate oral intake and altered GI function Signs/Symptoms as evidenced by ~10% wt loss in less than 1 month, poor oral intake meeting less than 50% estimated nutrition needs, +NFPA indicating physical signs of malnutrition with severe muscle/fat wasting in the face, neck, clavicle, arms and legs Status Active Problem Recommendation Dietitian Recommendations/Changes 1.) For Day #2 TPN: recommend 1.5L 8%AA/14% dextrose at 63mL /hour to provide 1196 calories , 120 g protein 2.) Will monitor labs/ electrolytes closely. 3.) Daily weights ordered. Will trend weights as available. 4.) Will monitor for signs/ symptoms of refeeding syndrome . 5.) Will monitor for ability to reintroduce PO nutrition and recommend diet/ONS as indicated. Lab / Micro Data Result Diagrams: 02/06/22 03:05 02/06/22 03:05 Labs: Laboratory Results - last 24 hr 02/05/22 11:18: POC Glucose 208 H 02/05/22 16:58: POC Glucose 237 H 02/06/22 00:05: POC Glucose 241 H 02/06/22 03:05: Sodium 144, Potassium 3.4 L, Chloride 117 H, Carbon Dioxide 23.0, Anion Gap 4 L, BUN 19 H, Creatinine 0.48 L, Estim Creat Clear Calc 33.30, Est GFR (MDRD) Af Amer 163, Est GFR (MDRD) Non-Af 135, BUN/Creatinine Ratio 40.0 H, Glucose 218 H, Calcium 8.2 L, Phosphorus 1.5 L, Magnesium 2.0 02/06/22 03:05: WBC 13.8 H, RBC 4.29, Hgb 10.3 L, Hct 32.6 L, MCV 76.0 L, MCH 24.0 L, MCHC 31.6 L, RDW Std Deviation 45.4 H, RDW Coeff of Travis 16.4 H, Plt Count 280, MPV 9.9, Immature Gran % (Auto) 0.700, Neut % (Auto) 75.9 H, Lymph % (Auto) 8.9 L, [place] % (Auto) 13.0 H, Eos % (Auto) 1.4, Baso % (Auto) 0.1, Absolute Neuts (auto) 10.5 H, Absolute Lymphs (auto) 1.22, Nucleated RBC % 0, Differential Comment SCANNED, Diff Path Review May foll Micro: Microbiology 02/01/22 08:05 Nasal Secretion SARS-CoV-2 Antigen (Rapid) - Final Physical Exam Narrative Alert. Awake. Aware of her situation in place Narrative: Soft, bowel sounds present, air within stoma bag, persistent tenderness left upper quadrant possibly not quite so severe Assessment & Plan Assessment/Plan (1) Gastric anastomotic leak: PLAN: Onset of fever noted. Mild hypertension. Ongoing low-dose oxygen requirement. Large amount of urine output. Phosphorus low at 1.4. Leukocytosis stable at 13.8 Patient is awaiting transfer to [facility] for tertiary level care and anticipated interventional radiology drainage of left upper quadrant abscess which cannot be performed by radiology locally
[2022-02-06 06:16] LABS: Bedside Glucose 228 mg/dL (74-106)
--- NOTE | 2022-02-06 06:33 | PN.CC_ITS ---
Assessment & Plan Assessment/Plan (1) Gastric anastomotic leak: (2) Severe malnutrition: (3) Pneumoperitoneum of unknown etiology: (4) History of Rayray-en-Y gastric bypass: (5) Asthma: (6) Gastroparesis: (7) Failure to thrive in adult: PLAN: RECOMMENDATIONS: 1. Continue aggressive electrolyte repletion 2. Monitor blood pressure closely 3. Await transfer to tertiary center for interventional 4. Potential thoracentesis if oxygenation status worsens. Add amylase and albumin to routine labs 5. Continue antibiotics per infectious disease IMPRESSIONS: 1. Pneumoperitoneum of unknown etiology There is some suggestion of a possible phlegmon developing. Patient can and does have a pleural effusion. Patient could have a thoracentesis with worsening respiratory status, but if ruptured esophagus is a concern, albumin a nd amylase should be added to routine labs. pH would also be helpful. Patient is on empiric antibiotics at this time. Patient does have rebound with suggestion of progression of pneumoperitoneum over the course of the hospitalization. Patient is currently awaiting transfer to a tertiary center. Patient does have an abscess that will need to be drained. 2. Hypotension with reported A. fib/chronic diastolic dysfunction with probable type II pulmonary hypertension Hypotension appears to be related to loss of atrial kick with A. fib. Patient has received significant electrolyte repletion with improvement in sinus rhythm. Blood pressure is currently acceptable to slightly elevated. We will continue to monitor closely. Patient is significantly volume positive over the course of the hospitalization. Anticipate patient status will deteriorate if antibiotics discontinued without source control of the abscess. 3. Severe malnutrition with refeeding syndrome/nonanion gap hyperchloremic metabolic acidosis Aggressive electrolyte repletion has been ordered. Patient also receiving TPN. Anticipate high needs of supplementation. Patient appears to be tolerating TPN well. Will likely shoot for a higher potassium and magnesium given problem #2. 4. Urinary incontinence/extensive abdominal surgical history/advanced age/failure to thrive/history of Rayray-en-Y/reported asthma Complicates care, management, recovery and prognosis. TPN has been ordered. Patient with significant weight loss recently. Patient is not having any significant NG output or ostomy output. Patient reportedly has asthma/COPD with recent steroids. Unclear if this exacerbated problem #1, but patient does not appear to have significant wheezing at this time. Okay to use bronchodilators, but avoid steroids from my perspective. Subjective Subjective Patient did okay overnight. No acute issues were reported. Patient remains in PCU status awaiting bed at [facility]. Little NG or ostomy output noted. Patient believes her abdomen is unchanged compared to yesterday. Patient has been hypertensive, but is requiring only minimal nasal cannula oxygen to maintain saturations. Nursing did report periods of bradycardia along with periods of SVT overnight that spontaneously resolved. Objective Data Objective Data Vital Signs: Vital Signs Temp Pulse Resp BP Pulse Ox 37.7 C H 90 19 H 187/97 H 96 02/06/22 05:20 02/06/22 05:32 02/06/22 05:20 02/06/22 05:32 02/06/22 05:20 Oxygen Flow Rate (L/min) 2 Oxygen Delivery Method Nasal Cannula Weight: 52.3 kg Body Mass Index (BMI) 19.0 Intake & Output: Intake and Output for Last 24 Hours 02/04/22 02/05/22 02/06/22 23:59 23:59 23:59 Intake Total 4579 / 4579 3162.2333 / 3162.2333 110 / 110 Output Total 725 / 725 2950 / 2950 555 / 555 Balance 3854 / 3854 212.2333 / 212.2333 -445 / -445 Medical Nutrition Assessment Dietitian: Malnutrition Criteria Met Start: 02/02/22 13:10 Freq: Status: Active Protocol: Document 02/05/22 12:17 (Rec: 02/05/22 12:17 [id number]) Nutrition Malnutrition Evidence of Malnutrition Exists Yes Malnutrition (severe): Acute Illness/Injury Evidenced By Suboptimal Energy Intake ( Severe),Weight Loss (Severe), Physical Changes (Severe) Clinical Problem Acute Disease or Injury Related Malnutrition Etiology Severe protein/calorie malnutrition in the context of acute illness related to abd pain/inadequate oral intake and altered GI function Signs/Symptoms as evidenced by ~10% wt loss in less than 1 month, poor oral intake meeting less than 50% estimated nutrition needs, +NFPA indicating physical signs of malnutrition with severe muscle/fat wasting in the face, neck, clavicle, arms and legs Status Active Problem Recommendation Dietitian Recommendations/Changes 1.) For Day #2 TPN: recommend 1.5L 8%AA/14% dextrose at 63mL /hour to provide 1196 calories , 120 g protein 2.) Will monitor labs/ electrolytes closely. 3.) Daily weights ordered. Will trend weights as available. 4.) Will monitor for signs/ symptoms of refeeding syndrome . 5.) Will monitor for ability to reintroduce PO nutrition and recommend diet/ONS as indicated. Lab / Micro Data Result Diagrams: 02/06/22 03:05 02/06/22 03:05 Labs: Laboratory Results - last 24 hr 02/05/22 11:18: POC Glucose 208 H 02/05/22 16:58: POC Glucose 237 H 02/06/22 00:05: POC Glucose 241 H 02/06/22 03:05: Sodium 144, Potassium 3.4 L, Chloride 117 H, Carbon Dioxide 23. 0, Anion Gap 4 L, BUN 19 H, Creatinine 0.48 L, Estim Creat Clear Calc 33.30, Est GFR (MDRD) Af Amer 163, Est GFR (MDRD) Non-Af 135, BUN/Creatinine Ratio 40.0 H, Glucose 218 H, Calcium 8.2 L, Phosphorus 1.5 L, Magnesium 2.0 02/06/22 03:05: WBC 13.8 H, RBC 4.29, Hgb 10.3 L, Hct 32.6 L, MCV 76.0 L, MCH 24.0 L, MCHC 31.6 L, RDW Std Deviation 45.4 H, RDW Coeff of Travis 16.4 H, Plt Count 280, MPV 9.9, Immature Gran % (Auto) 0.700, Neut % (Auto) 75.9 H, Lymph % (Auto) 8.9 L, Edwards % (Auto) 13.0 H, Eos % (Auto) 1.4, Baso % (Auto) 0.1, Absolute Neuts (auto) 10.5 H, Absolute Lymphs (auto) 1.22, Nucleated RBC % 0, Differential Comment SCANNED, Diff Path Review February foll 02/06/22 06:12: POC Glucose 228 H Micro: Microbiology 02/01/22 08:05 Nasal Secretion SARS-CoV-2 Antigen (Rapid) - Final Physical Exam Const alert and oriented x3 Constitutional Narrative: Uncomfortable at rest, but able to focus for short periods of time. General Appearance: in distress Positive for moderate Exam Limitations: no limitations Nutritional Appearance: thin HEENT head/scalp atraumatic and moist oral mucous membranes HEENT Narrative: NG tube in the right nares, Mallampati 2, no thrush Head and Scalp: normocephalic Eyes PERRL and EOMs intact bilaterally Eyes Narrative: Pale conjunctiva bilaterally, no scleral icterus Neck no lymphadenopathy, supple and no JVD Neck Narrative: Trachea midline, no thyroid enlargement Resp normal respiratory effort, no retractions, no use of accessory muscles and clear to auscultation bilaterally Auscultation: Negative for crackles, rales, rhonchi or wheezes Cardio regular rate, S1 normal heart sound, S2 normal heart sound, no murmurs, no rub, no gallops, no clicks and no JVD Cardio Narrative: Irregular rhythm, but sinus on telemetry GI soft to palpation and non-distended; Negative for hepatosplenomegaly GI Narrative: Abdomen is tender diffusely but appears to localize at the left upper quadrant. Rebound noted without significant guarding. Ostomy is pink with air noted in ostomy bag Extremity no clubbing, cyanosis or edema Peripheral Pulses: Yes pulses 2+ throughout Skin no rashes or lesions noted, no wounds, skin turgor normal, no jaundice, no petechiae and no mottling Skin Narrative: Scattered ecchymotic areas from hospitalization but no other lesions noted Neuro oriented x3, CN's II-XII intact bilaterally, moves all extremities and no focal motor deficits Neuro Narrative: Generalized weakness Sensorium / Orientation: awake and alert Speech: speech normal Psych Psych Narrative: Affect is flattened mood is depressed Mood & Affect: depressed Charges/Coding Visit Charges Inpatient E&M: 29888 Subs Hosp L2
--- NOTE | 2022-02-06 06:59 | US_ITS ---
PROCEDURE: ULTRASOUND GUIDED THORACENTESIS. DATE: 02/06/2022. INDICATION: Female, 77 years old. Left pleural effusion. PHYSICIAN: Sreekanth Kenney M.D. PROCEDURE: The risks, benefits, and alternatives to the procedure were explained to the patient. The specific risks of bleeding, infection, and pneumothorax requiring chest tube insertion were discussed and accepted. Written informed consent was obtained. Ultrasonographic evaluation of the left lower pleural space was carried out. An adequate pocket was identified. The patient was placed in the sitting, upright position. The overlying skin was prepped and draped in sterile fashion. 1% lidocaine was administered subcutaneously for local anesthesia. Under ultrasound guidance, a 5 Bhutanese thoracentesis needle/catheter system was advanced into the left posterior lower pleural fluid collection. Approximately 150 mL of delbert-colored fluid was drained. The catheter was removed, and a sterile dressing was applied. A specimen was collected and sent to the laboratory for analysis, as requested by the referring clinician. The patient tolerated the procedure well. A chest x-ray was ordered. US/Thoracentesis W US IMPRESSION: Ultrasound-guided left thoracentesis. Electronically Signed: Sreekanth Kenney MD at 12:03 EDT ,
[2022-02-06 08:32] LABS: Pathologist Review Reviewed
[2022-02-06] MEDS: Insulin Glargine-YFGN 100 UNIT/ML Pen 10 UNIT SC (09:17)
[2022-02-06 10:20] LABS: Pathologist Review Reviewed
--- NOTE | 2022-02-06 10:48 | RAD_ITS ---
STUDY: X-RAY CHEST REASON FOR EXAM: Female, 77 years old. POST THORACENTESIS TECHNIQUE: AP inspiration and expiration views. COMPARISON: Comparison is made with prior study dated 02/02/2022. FINDINGS: The patient is status post left thoracentesis. No evidence of pneumothorax. Persistent pleural-parenchymal changes are seen at the left lung base. RAD/Chest Insp/Exp 2 View IMPRESSION: Status post left thoracentesis. There is no evidence of pneumothorax. Persistent pleural parenchymal changes at the left lung base. Electronically Signed: Sreekanth Kenney MD at 11:07 EDT ,
[2022-02-06 11:01] LABS: Cytology, Body Fluid / CSF SEE PATHOLOGY REPORT
[2022-02-06 11:48] LABS: Appearance/Body Fluid SL CLDY; Color/Body Fluid YELLOW
[2022-02-06 11:49] LABS: Auto B Fluid Analyzer BKGD Ct COUNTS W/IN LIMITS (W/IN LIMITS); Body Fluid Total Cells Counted 3.731 10^3/ul; Source- Body Fluid PLEURAL FLUID/LEFT; White Blood Count/Body Fluid 3.711 10^3/uL
--- NOTE | 2022-02-06 11:57 | PCM.PN.ID ---
Physical Exam Narrative No fever, no abd pain. Had thora done, breathing about the same. Const alert General Appearance: cooperative Resp Auscultation: diminished lung sounds Cardio regular rate and regular rhythm GI soft to palpation, non-tender and non-distended Skin no rashes or lesions noted ID ID: Route of nutrition/ use of supplements: [] Nutritional Intake: [] IV Site: [] Oneal Catheter: [] Assessment & Plan Assessment/Plan (1) Pneumoperitoneum of unknown etiology: PLAN: CT shows worsening despite medical therapy. Transfer planned for further surgical eval. Continue zosyn. Thoracentesis done, fluid studies pending. Pt and both with covid vaccine x3. Will follow (2) History of Rayray-en-Y gastric bypass: (3) History of colostomy:
--- NOTE | 2022-02-06 12:45 | PN.HOSP_ITS ---
Subjective Subjective Patient states she is persisting really having pain in the left upper quadrant. We discussed that this is most likely related to the abscess that needs drained. We did discuss the need for thoracentesis on the left side and she is agreeable. Still awaiting bed at [facility]. Objective Data Objective Data Vital Signs: Vital Signs Temp Pulse Resp BP Pulse Ox 99.7 F H 91 20 H 164/106 H 93 02/06/22 11:45 02/06/22 11:54 02/06/22 11:45 02/06/22 11:54 02/06/22 11:45 Oxygen Flow Rate (L/min) 2 Oxygen Delivery Method [4] Room Air Oxygen Delivery Method [3] Room Air Oxygen Delivery Method [2] Room Air Oxygen Delivery Method [1 ( Room Air Initial Baseline)] Oxygen Delivery Method Room Air Weight: 52.3 kg Body Mass Index (BMI) 19.0 Intake & Output: Intake and Output for Last 24 Hours 02/04/22 02/05/22 02/06/22 23:59 23:59 23:59 Intake Total 4579 / 4579 3162.2333 / 3162.2333 527 / 527 Output Total 725 / 725 2950 / 2950 705 / 705 Balance 3854 / 3854 212.2333 / 212.2333 -178 / -178 Medical Nutrition Assessment Dietitian: Malnutrition Criteria Met Start: 02/02/22 13:10 Freq: Status: Active Protocol: Document 02/06/22 09:42 (Rec: 02/06/22 09:42 [id number]) Nutrition Malnutrition Evidence of Malnutrition Exists Yes Malnutrition (severe): Acute Illness/Injury Evidenced By Suboptimal Energy Intake ( Severe),Weight Loss (Severe), Physical Changes (Severe) Clinical Problem Acute Disease or Injury Related Malnutrition Etiology Severe protein/calorie malnutrition in the context of acute illness related to abd pain/inadequate oral intake and altered GI function Signs/Symptoms as evidenced by ~10% wt loss in less than 1 month, poor oral intake meeting less than 50% estimated nutrition needs, +NFPA indicating physical signs of malnutrition with severe muscle/fat wasting in the face, neck, clavicle, arms and legs Status Active Problem Recommendation Dietitian Recommendations/Changes 1.) For Day #3 TPN: recommend 1.5L 8%AA/14% dextrose at 63mL /hour with 250mL 20% lipid solution to provide 1696 calories, 120 g protein. Famotidine and insulin added to TPN per provider order. 2.) Will monitor labs/ electrolytes closely. 3.) Daily weights ordered. Will trend weights as available. 4.) Will monitor for signs/ symptoms of refeeding syndrome . 5.) Will monitor for ability to reintroduce PO nutrition and recommend diet/ONS as indicated. Lab / Micro Data Result Diagrams: 02/06/22 03:05 02/06/22 03:05 Labs: Laboratory Results - last 24 hr 02/04/22 22:40: Diff Path Review Reviewed 02/05/22 16:58: POC Glucose 237 H 02/06/22 00:05: POC Glucose 241 H 02/06/22 03:05: Sodium 144, Potassium 3.4 L, Chloride 117 H, Carbon Dioxide 23.0, Anion Gap 4 L, BUN 19 H, Creatinine 0.48 L, Estim Creat Clear Calc 33.30, Est GFR (MDRD) Af Amer 163, Est GFR (MDRD) Non-Af 135, BUN/Creatinine Ratio 40.0 H, Glucose 218 H, Calcium 8.2 L, Phosphorus 1.5 L, Magnesium 2.0 02/06/22 03:05: WBC 13.8 H, RBC 4.29, Hgb 10.3 L, Hct 32.6 L, MCV 76.0 L, MCH 24.0 L, MCHC 31.6 L, RDW Std Deviation 45.4 H, RDW Coeff of Travis 16.4 H, Plt Count 280, MPV 9.9, Immature Gran % (Auto) 0.700, Neut % (Auto) 75.9 H, Lymph % (Auto) 8.9 L, Archuleta % (Auto) 13.0 H, Eos % (Auto) 1.4, Baso % (Auto) 0.1, Absolute Neuts (auto) 10.5 H, Absolute Lymphs (auto) 1.22, Nucleated RBC % 0, Differential Comment SCANNED, Diff Path Review Reviewed 02/06/22 06:12: POC Glucose 228 H 02/06/22 10:42: Fluid Source PLEURAL FLUID/LEFT, Fluid Color YELLOW, Fluid Appearance SL CLDY, Fluid WBC 3.711, Fluid RBC 1.000, Fluid Tot Cell Count 3.731 H, Fl Pathologist Comment May follow, Fluid Comment 2 SEE COMMENT Micro: Microbiology 02/01/22 08:05 Nasal Secretion SARS-CoV-2 Antigen (Rapid) - Final Radiography Diagnostic Testing: Radiology Impression Thoracentesis Ultrasound 02/06/22 06:59 IMPRESSION: Ultrasound-guided left thoracentesis. Electronically Signed: Sreekanth Kenney MD at 12:03 EDT , Chest X-Ray 02/06/22 10:48 IMPRESSION: Status post left thoracentesis. There is no evidence of pneumothorax. Persistent pleural parenchymal changes at the left lung base. Electronically Signed: Sreekanth Kenney MD at 11:07 EDT , Physical Exam Const alert, oriented x3 and no apparent distress Constitutional Narrative: Elderly white female lying in bed, appears thin and malnourished, patient appears nontoxic, appears comfortable at this time, eyes closed but not sleeping General Appearance: cooperative Exam Limitations: no limitations Nutritional Appearance: cachectic HEENT normocephalic and head/scalp atraumatic HEENT Narrative: Adan membranes are dry Head and Scalp: normocephalic Resp normal respiratory effort, no retractions, no use of accessory muscles and clear to auscultation bilaterally Resp Narrative: Diminished left base Auscultation: Negative for crackles, rales, rhonchi or wheezes Cardio regular rate, regular rhythm, S1 normal heart sound, S2 normal heart sound, no murmurs, no rub, no gallops, no clicks and no JVD GI soft to palpation and non-distended; Negative for hepatosplenomegaly GI Narrative: Abdomen is tender diffusely but soft predominant tenderness is in the left upper quadrant, no distention noted, bowel sounds are hypoactive, ostomy with good output, ventral defect noted Extremity Extremity Narrative: Trace bilateral lower extremity edema, no cyanosis or clubbing Peripheral Pulses: Yes pulses 2+ throughout Neuro oriented x3, moves all extremities and no focal motor deficits Neuro Narrative: Marked generalized weakness Sensorium / Orientation: awake and alert Speech: speech normal Psych Psych Narrative: Affect is flattened mood is depressed Assessment & Plan Assessment/Plan (1) Pneumoperitoneum of unknown etiology: (2) Abdominal pain: QUALIFIERS: Abdominal location: epigastric Qualified Code(s): R10.13 - Epigastric pain (3) Leukocytosis: (4) Microcytic anemia: (5) Hyperchloremia: (6) Hypokalemia: (7) Hypophosphatemia: (8) Severe malnutrition: (9) Hypomagnesemia: (10) Pleural effusion: PLAN: Pneumoperitoneum of unknown etiology with suspected peritonitis -Upper GI series showed no perforation or leak--> suspect that this is now walled off -Fady CT scan done last evening shows mildly improved but persistent pneumoperitoneum with a loculated area of fluid and air in the left subdiaphragmatic region that is suspicious for developing abscess and a left loculated pleural effusion -PERC drain ordered but unfortunately unable to do here secondary to complicated abdomen -Patient transferred to [facility] and still awaiting bed availability -Will need IR drainage and cultures to narrow antibiotics -Continue NG tube -Continue as needed pain medication and increase morphine to every 2 hours -Continue IV antibiotics as ordered -White count continues to improve on IV antibiotics -ID has been consulted for their opinion on antibiotics -Continue TPN -DC GI/general surgery input -Await imaging for further plans Left-sided pleural effusion -Thoracentesis with diagnostic studies today -We will dose Lasix 40 mg IV push x1 dose Leukocytosis -Secondary to the above -White count remains elevated but stable -Continue IV antibiotics -Blood cultures remain pending Hypokalemia -21 mmol bolus of potassium phosphate given -Repeat in a.m. Hypophosphatemia -21 mmol of potassium phosphate given -Repeat in a.m. Hypomagnesemia -Resolved Hyperglycemia -Patient was given Lantus 10 units this morning -We will add 10 units to TPN to start this evening -Discontinue Lantus -Continue to monitor blood sugar Severe malnutrition -Significant weight loss with marked decreased p.o. intake -PICC in place and patient is now on TPN -Anticipate prolonged n.p.o. status -Once able to take p.o. will need supplements added -Dietitian is following Microcytic anemia -Hemoglobin was normal on admission -Hemoglobin is currently stable -No signs of acute GI bleeding -Microcytosis appears to be chronic -Patient appears to be mildly iron deficient and would recommend p.o. 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 -Patient has a remaining large abdominal wall hernia and will need outpatient follow-up Paroxysmal atrial fibrillation -Continue IV metoprolol -Patient remains in normal sinus rhythm at this time -Echocardiogram shows an EF of 55% with stage I diastolic dysfunction and pulmonary artery systolic pressure 44 mmHg, mild biatrial enlargement -No anticoagulation secondary to possible surgical needs History of GI bleed -EGD done in August 2021 which showed moderate Schatzki's ring, stenosed Billroth I gastric duodenostomy with erosion, erythema and friability in the mucosa with hemorrhagic appearance and an intact staple line -Patient also had multiple jejunal ulcers with visible vessel which was treated -Colonoscopy was also done and showed redundant colon with patent and sigmoid colostomy characterized by ulceration and mild stenosis Urinary incontinence -Hold oxybutynin while patient is n.p.o. DVT prophylaxis -Subcu Lovenox CODE STATUS -Full code Dispo: -Still awaiting bed availability at [facility] for transfer and drain placement Charges/Coding Visit Charges Inpatient E&M: 91271 [facility] Hosp L2
[2022-02-06 13:09] LABS: Macrophages 7 %; Mesothelial Cells 21 %; Neutrophil (Segs) 72 %
[2022-02-06 13:10] LABS: Body Fluid QC Type(s) BF2Q
[2022-02-06] MEDS: Furosemide 40 MG/4 ML Vial IV (13:13)
[2022-02-06] MEDS: 0.9% Saline Lock 10 ML Syringe IV ×3 (13:13→22:55)
[2022-02-06] MEDS: hydrALAZINE 20 MG/ML Vial IV (13:21)
[2022-02-06 13:31] LABS: Bedside Glucose 210 mg/dL (74-106)
[2022-02-06 13:37] LABS: Glucose, Body Fluid 205 mg/dL (40-70); LDH,Body Fluid 157 Units/l (Not Establ.); Protein, Body Fluid 2.1 g/dL (Not Establ.)
--- NOTE | 2022-02-06 15:18 | CHAPLAIN ---
Type of Pastoral Visit _x__ Initial Visit ___ Follow-up Visit ___ On-call Visit ___ General Patient Visit ___ Spiritual Assessment ___ Family Conference ___ Bereavement ___ Rapid Response ___ Code Blue ___ Other (describe below) Pastoral Care Referral From _x__ Patient ___ Family ___ Nurse ___ Physician ___ [employer] ___ Stabber ___ Other (describe below) Sacrament/Intervention _x__ Active listening ___ Anointing ___ Pentecostalism ___ Bereavement ___ Communion ___ Karlee exploration ___ ___ Life review _x__ Prayer ___ Reconciliation ___ Sacrament of Sick _x__ Supportive presence ___ Wedding ___ Other (describe below) Pastoral Comments patient is waiting for transfer to [facility] when a bed is available; gave opportunity for pt to express herself and how she is coping with her admission and her illness; prayer was welcomed; pt states she has family support and is connected to a shinto
[2022-02-06] MEDS: Fat Emulsions 20% 250 ML IV (16:47)
[2022-02-06] MEDS: TPN - Clinimix E 8%-14% Soln 2,000 ML with Multivitamins 10 ML, Trace Elements 1 ML, Fo... 63 ML IV (16:52)
[2022-02-06 18:51] LABS: Bedside Glucose 258 mg/dL (74-106)
[2022-02-07] VITALS (17 sets, daily range): BP systolic 127–183; BP diastolic 72–108; PULSE 61–101; RESP 18–22; TEMP 36.6–37.1; O2SAT 94–96
[2022-02-07 00:22] LABS: Red Cell Count/Body Fluid 1 /mm3
[2022-02-07] MEDS: Metoprolol Tartrate 5 MG/5 ML Vial IV ×5 (00:43→23:45)
[2022-02-07] MEDS: 0.9% Saline Lock 10 ML Syringe IV ×8 (00:46→23:46)
[2022-02-07 01:46] LABS: Bedside Glucose 187 mg/dL (74-106)
[2022-02-07] MEDS: Morphine 2 MG/ML Syringe IV ×4 (03:07→17:11)
[2022-02-07 05:38] LABS: Absolute Lymphocyte Count 1.11 X10^3/uL (0.83-4.51); Absolute Neutrophil Count 12.4 X10^3/uL (2.0-7.7); Basophil# 0.05 X10^3/uL; Basophil% 0.3 % (0-1); Differential Indicated SCAN CRITERIA MET; Eosinophil# 0.31 X10^3/uL; Hematocrit 36.6 % (37-47); Hemoglobin 11.4 g/dL (12.0-15.0); Lymphocyte # 1.11 X10^3/ul (0.83-4.51); Lymphocyte % 7.1 % (19-41); Mean Corp Hgb Conc 31.1 g/dL (32-36); Mean Corpuscular Hgb 24.2 pg (27.0-32.0); Mean Corpuscular Volume 77.5 fL (81-99); Mean Platelet Vol. 10.3 fl (6.2-12.0); Monocyte# 1.65 X10^3/uL; Monocyte% 10.5 % (0-10); NRBC Flagged by Analyzer 0 % (0-5); Neutrophil # 12.41 X10^3/uL (2.7-7.7); Neutrophil % 79.1 % (47-70); POSITIVE DIFFERENTIAL YES; Platelet Count 230 K/mm3 (150-450); RBC Distribution Width CV 16.2 % (11.6-14.6); RBC Distribution Width SD 45.4 fl (35.1-43.9); Red Blood Count 4.72 M/mm3 (4.2-5.4); White Blood Count 15.7 K/mm3 (4.4-11.0)
[2022-02-07 05:59] LABS: Differential Comment SCANNED
[2022-02-07 06:02] LABS: Anion Gap 5 (5-15); BUN 20 mg/dL (7-18); BUN/Creat Ratio 46.4 RATIO (10-20); Calcium,Total 8.6 mg/dL (8.5-10.1); Chloride 115 mmol/L (98-107); Creatinine, Serum 0.43 mg/dL (0.55-1.02); EST Glomerular Filtration Rate 151 mL/min (>60); Est Glom Filt Rate - Afr Amer 182 mL/min (>60); Glucose 186 mg/dL (74-106); Potassium 3.5 mmol/L (3.5-5.1); Sodium Level 140 mmol/L (136-145)
--- NOTE | 2022-02-07 06:23 | PN.SURG_ITS ---
Subjective Subjective Patient thinks that her abdominal discomfort is improving. She is complaining of chronic cough. She is complaining of new onset left chest pain subsequent to yesterday's thoracentesis. Objective Data Objective Data Vital Signs: Vital Signs Temp Pulse Resp BP Pulse Ox 98.2 F 84 18 168/103 H 96 02/07/22 05:35 02/07/22 05:57 02/07/22 05:35 02/07/22 05:57 02/07/22 05:35 Oxygen Flow Rate (L/min) 2 Oxygen Delivery Method [4] Room Air Oxygen Delivery Method [3] Room Air Oxygen Delivery Method [2] Room Air Oxygen Delivery Method [1 ( Room Air Initial Baseline)] Oxygen Delivery Method Nasal Cannula Weight: 111 lb 5.335 oz Body Mass Index (BMI) 19.0 Intake & Output: Intake and Output for Last 24 Hours 02/05/22 02/06/22 02/07/22 23:59 23:59 23:59 Intake Total 3162.2333 / 3162.2333 2223.1 / 2223.1 390 / 390 Output Total 2950 / 2950 3105 / 3105 Balance 212.2333 / 212.2333 -881.9 / -881.9 390 / 390 Medical Nutrition Assessment Dietitian: Malnutrition Criteria Met Start: 02/02/22 13:10 Freq: Status: Active Protocol: Document 02/06/22 09:42 (Rec: 02/06/22 09:42 [id number]) Nutrition Malnutrition Evidence of Malnutrition Exists Yes Malnutrition (severe): Acute Illness/Injury Evidenced By Suboptimal Energy Intake ( Severe),Weight Loss (Severe), Physical Changes (Severe) Clinical Problem Acute Disease or Injury Related Malnutrition Etiology Severe protein/calorie malnutrition in the context of acute illness related to abd pain/inadequate oral intake and altered GI function Signs/Symptoms as evidenced by ~10% wt loss in less than 1 month, poor oral intake meeting less than 50% estimated nutrition needs, +NFPA indicating physical signs of malnutrition with severe muscle/fat wasting in the face, neck, clavicle, arms and legs Status Active Problem Recommendation Dietitian Recommendations/Changes 1.) For Day #3 TPN: recommend 1.5L 8%AA/14% dextrose at 63mL /hour with 250mL 20% lipid solution to provide 1696 calories, 120 g protein. Famotidine and insulin added to TPN per provider order. 2.) Will monitor labs/ electrolytes closely. 3.) Daily weights ordered. Will trend weights as available. 4.) Will monitor for signs/ symptoms of refeeding syndrome . 5.) Will monitor for ability to reintroduce PO nutrition and recommend diet/ONS as indicated. Lab / Micro Data Result Diagrams: 02/07/22 05:20 02/07/22 05:20 Labs: Laboratory Results - last 24 hr 02/04/22 22:40: Diff Path Review Reviewed 02/06/22 03:05: Diff Path Review Reviewed 02/06/22 10:42: Fluid Glucose 205 H, Fluid Total Protein 2.1, Fluid LDH 157 02/06/22 10:42: Fluid Source PLEURAL FLUID/LEFT, Fluid Color YELLOW, Fluid Appearance SL CLDY, Fluid WBC 3.711, Fluid RBC 1, Fluid Tot Cell Count 3.731 H, Fluid Neutrophils 72, Fluid Macrophages 7, Fld Mesothelial Cells 21, Fl Pathologist Comment May follow, Fluid Comment 2 SEE COMMENT 02/06/22 13:15: POC Glucose 210 H 02/06/22 18:45: POC Glucose 258 H 02/07/22 00:43: POC Glucose 187 H 02/07/22 05:20: WBC 15.7 H, RBC 4.72, Hgb 11.4 L, Hct 36.6 L, MCV 77.5 L, MCH 24.2 L, MCHC 31.1 L, RDW Std Deviation 45.4 H, RDW Coeff of Travis 16.2 H, Plt Cou nt 230, MPV 10.3, Immature Gran % (Auto) 1.000 H, Neut % (Auto) 79.1 H, Lymph % (Auto) 7.1 L, [place] % (Auto) 10.5 H, Eos % (Auto) 2.0, Baso % (Auto) 0.3, Absolute Neuts (auto) 12.4 H, Absolute Lymphs (auto) 1.11, Nucleated RBC % 0, Differential Comment SCANNED, Diff Path Review May foll 02/07/22 05:20: Sodium 140, Potassium 3.5, Chloride 115 H, Carbon Dioxide 20.0 L , Anion Gap 5, BUN 20 H, Creatinine 0.43 L, Estim Creat Clear Calc 33.30, Est GFR (MDRD) Af Amer 182, Est GFR (MDRD) Non-Af 151, BUN/Creatinine Ratio 46.4 H, Glucose 186 H, Calcium 8.6 Micro: Microbiology 02/06/22 10:42 Fluid - Thoracentesis Fluid Gram Stain - Final 02/01/22 08:05 Nasal Secretion SARS-CoV-2 Antigen (Rapid) - Final Radiography Diagnostic Testing: Radiology Impression Thoracentesis Ultrasound 02/06/22 06:59 IMPRESSION: Ultrasound-guided left thoracentesis. Electronically Signed: Sreekanth Kenney MD at 12:03 EDT , Chest X-Ray 02/06/22 10:48 IMPRESSION: Status post left thoracentesis. There is no evidence of pneumothorax. Persistent pleural parenchymal changes at the left lung base. Electronically Signed: Sreekanth Kenney MD at 11:07 EDT , Physical Exam Narrative Patient is rubbing the apical aspect of her left shoulder and anterior left chest. Moist nonproductive cough noted Resp Resp Narrative: Deep respiratory effort being utilized at rest GI GI Narrative: Soft, tender to deep palpation left upper quadrant but less so. Mid abdomen is very soft Assessment & Plan Assessment/Plan (1) Gastric anastomotic leak: PLAN: 77-year-old female with complaint of left chest pain subsequent to her thoracentesis yesterday. Only 150 cc was removed. Moist nonproductive cough. Will check PA and lateral chest x-ray. She notes that she thinks that her abdominal pain is slowly improving. White blood cell count slightly rebounded back up to 15.7. 79% neutrophils. Ongoing medical care.
[2022-02-07 06:24] LABS: Phosphorus 1.3 mg/dL (2.5-4.9)
[2022-02-07 06:46] LABS: Bedside Glucose 166 mg/dL (74-106)
--- NOTE | 2022-02-07 08:10 | RAD_ITS ---
STUDY: X-RAY CHEST REASON FOR EXAM: Female, 77 years old. Left chest pain TECHNIQUE: AP and lateral views of the chest. COMPARISON: Comparison is made with prior study dated 02/06/2022. FINDINGS: A left-sided PICC line catheter has been placed with the tip at the junction of the superior vena cava and right atrium. An orogastric tube is seen with tip below the left hemidiaphragm. EKG electrodes are seen. Persistent left pleural effusion with left basilar infiltration and/or atelectasis. This has progressed slightly as compared to prior study. The right lung is clear. Normal size heart. Normal mediastinum and shai. Normal visualized pulmonary arteries. There is atherosclerotic calcification of the aortic arch with tortuosity. There are diffuse degenerative changes of the visualized thoracic spine. There is degenerative osteoarthritis of the bilateral shoulders. There is no demonstrated abnormality of the visualized soft tissue structures of the upper abdomen. RAD/Chest PA and Lateral IMPRESSION: Increase in the left pleural effusion with left basilar infiltration and/or atelectasis. The right lung is clear. Electronically Signed: Sreekanth Kenney MD at 8:21 EDT ,
[2022-02-07 08:15] LABS: AST(SGOT) 34 U/L (15-37); Alanine Aminotransfer ALT/SGPT 14 U/L (13-56); Albumin, Serum 1.9 g/dL (3.2-5.0); Alkaline Phosphatase 65 U/L (45-117); Bilirubin, Direct < 0.05 mg/dL (0.00-0.30); Globulin 3.8 g/dL (2.2-4.2); LDH 570 U/L (84-246); Protein, Total 5.7 g/dL (6.4-8.2)
[2022-02-07] MEDS: hydrALAZINE 20 MG/ML Vial IV (08:33)
--- NOTE | 2022-02-07 08:48 | PCM.PN.INT ---
Assessment & Plan Assessment/Plan (1) Gastric anastomotic leak: (2) Severe malnutrition: (3) Pneumoperitoneum of unknown etiology: (4) History of Rayray-en-Y gastric bypass: (5) Asthma: (6) Gastroparesis: (7) Failure to thrive in adult: PLAN: RECOMMENDATIONS: 1. Continue aggressive electrolyte repletion 2. Monitor blood pressure closely 3. Await transfer to tertiary center for interventional measures 4. Continue antibiotics. Possible need for chest tube with fibrinolytics 5. Continue with diuresis IMPRESSIONS: 1. Pneumoperitoneum of unknown etiology/acute hypoxic respiratory insufficiency secondary to parapneumonic effusion There is some suggestion of a possible phlegmon developing. Patient can and does have a pleural effusion. Chest x-ray this morning shows slightly worse effusion. Findings on thoracentesis suggestive of a neutrophilic exudate with preserved glucose, likely consistent with a parapneumonic effusion. This would be expected given probable abscess under the diaphragm. Patient still awaiting definitive therapy, but does appear to be improving with antibiotics. 2. Hypotension with reported A. fib/chronic diastolic dysfunction with probable type II pulmonary hypertension Hypotension appears to be related to loss of atrial kick with A. fib. Patient has received significant electrolyte repletion with improvement in sinus rhythm. Blood pressure is currently acceptable to slightly elevated. We will continue to monitor closely. Patient is significantly volume positive over the course of the hospitalization. Anticipate patient status will deteriorate if antibiotics discontinued without source control of the abscess. Continue diuresis as tolerated 3. Severe malnutrition with refeeding syndrome/nonanion gap hyperchloremic metabolic acidosis Aggressive electrolyte repletion has been ordered. Patient also receiving TPN. Anticipate high needs of supplementation. Patient appears to be tolerating TPN well. Will likely shoot for a higher potassium and magnesium given problem #2. 4. Urinary incontinence/extensive abdominal surgical history/advanced age/failure to thrive/history of Rayray-en-Y/reported asthma Complicates care, management, recovery and prognosis. TPN has been ordered. Patient with significant weight loss recently. Patient is not having any significant NG output or ostomy output. Patient reportedly has asthma/COPD with recent steroids. Unclear if this exacerbated problem #1, but patient does not appear to have significant wheezing at this time. Okay to use bronchodilators, but avoid steroids from my perspective. Subjective Subjective Patient overall feels subjectively improved compared to yesterday. Patient did have a thoracentesis yesterday and tolerated this well, but minimal fluid was removed. Patient is not reporting any shortness of breath and feels that her abdominal pain is improved compared to yesterday. Patient is not reporting any dyspnea, but is requiring 2 L nasal cannula to maintain saturations. Objective Data Objective Data Vital Signs: Vital Signs Temp Pulse Resp BP Pulse Ox 36.8 C 82 18 164/108 H 96 02/07/22 05:35 02/07/22 08:33 02/07/22 05:35 02/07/22 08:33 02/07/22 05:35 Oxygen Flow Rate (L/min) 2 Oxygen Delivery Method [4] Room Air Oxygen Delivery Method [3] Room Air Oxygen Delivery Method [2] Room Air Oxygen Delivery Method [1 ( Room Air Initial Baseline)] Oxygen Delivery Method Nasal Cannula Weight: 50.5 kg Body Mass Index (BMI) 19.0 Intake & Output: Intake and Output for Last 24 Hours 02/05/22 02/06/22 02/07/22 23:59 23:59 23:59 Intake Total 3162.2333 / 3162.2333 2223.1 / 2223.1 390 / 390 Output Total 2950 / 2950 3105 / 3105 Balance 212.2333 / 212.2333 -881.9 / -881.9 390 / 390 Medical Nutrition Assessment Dietitian: Malnutrition Criteria Met Start: 02/02/22 13:10 Freq: Status: Active Protocol: Document 02/06/22 09:42 (Rec: 02/06/22 09:42 [id number]) Nutrition Malnutrition Evidence of Malnutrition Exists Yes Malnutrition (severe): Acute Illness/Injury Evidenced By Suboptimal Energy Intake ( Severe),Weight Loss (Severe), Physical Changes (Severe) Clinical Problem Acute Disease or Injury Related Malnutrition Etiology Severe protein/calorie malnutrition in the context of acute illness related to abd pain/inadequate oral intake and altered GI function Signs/Symptoms as evidenced by ~10% wt loss in less than 1 month, poor oral intake meeting less than 50% estimated nutrition needs, +NFPA indicating physical signs of malnutrition with severe muscle/fat wasting in the face, neck, clavicle, arms and legs Status Active Problem Recommendation Dietitian Recommendations/Changes 1.) For Day #3 TPN: recommend 1.5L 8%AA/14% dextrose at 63mL /hour with 250mL 20% lipid solution to provide 1696 calories, 120 g protein. Famotidine and insulin added to TPN per provider order. 2.) Will monitor labs/ electrolytes closely. 3.) Daily weights ordered. Will trend weights as available. 4.) Will monitor for signs/ symptoms of refeeding syndrome . 5.) Will monitor for ability to reintroduce PO nutrition and recommend diet/ONS as indicated. Lab / Micro Data Result Diagrams: 02/07/22 05:20 02/07/22 05:20 Labs: Laboratory Results - last 24 hr 02/06/22 03:05: Diff Path Review Reviewed 02/06/22 10:42: Fluid Glucose 205 H, Fluid Total Protein 2.1, Fluid LDH 157 02/06/22 10:42: Fluid Source PLEURAL FLUID/LEFT, Fluid Color YELLOW, Fluid Appearance SL CLDY, Fluid WBC 3.711, Fluid RBC 1, Fluid Tot Cell Count 3.731 H, Fluid Neutrophils 72, Fluid Macrophages 7, Fld Mesothelial Cells 21, Fl Pathologist Comment May follow, Fluid Comment 2 SEE COMMENT 02/06/22 13:15: POC Glucose 210 H 02/06/22 18:45: POC Glucose 258 H 02/07/22 00:43: POC Glucose 187 H 02/07/22 05:20: WBC 15.7 H, RBC 4.72, Hgb 11.4 L, Hct 36.6 L, MCV 77.5 L, MCH 24.2 L, MCHC 31.1 L, RDW Std Deviation 45.4 H, RDW Coeff of [place] 16.2 H, Plt Count 230, MPV 10.3, Immature Gran % (Auto) 1.000 H, Neut % (Auto) 79.1 H, Lymph % (Auto) 7.1 L, [place] % (Auto) 10.5 H, Eos % (Auto) 2.0, Baso % (Auto) 0.3, Absolute Neuts (auto) 12.4 H, Absolute Lymphs (auto) 1.11, Nucleated RBC % 0, Differential Comment SCANNED, Diff Path Review May foll 02/07/22 05:20: Sodium 140, Potassium 3.5, Chloride 115 H, Carbon Dioxide 20.0 L, Anion Gap 5, BUN 20 H, Creatinine 0.43 L, Estim Creat Clear Calc 33.30, Est GFR (MDRD) Af Amer 182, Est GFR (MDRD) Non-Af 151, BUN/Creatinine Ratio 46.4 H, Glucose 186 H, Calcium 8.6 02/07/22 05:20: Phosphorus 1.3 L 02/07/22 05:20: Total Bilirubin 0.30, Direct Bilirubin < 0.05, AST 34, ALT 14, Alkaline Phosphatase 65, Lactate Dehydrogenase 570 H, Total Protein 5.7 L, Albumin 1.9 L, Globulin 3.8 02/07/22 05:38: POC Glucose 166 H Micro: Microbiology 02/06/22 10:42 Fluid - Thoracentesis Fluid Gram Stain - Final 02/01/22 08:05 Nasal Secretion SARS-CoV-2 Antigen (Rapid) - Final Radiography Diagnostic Testing: Radiology Impression Thoracentesis Ultrasound 02/06/22 06:59 IMPRESSION: Ultrasound-guided left thoracentesis. Electronically Signed: Sreekanth Kenney MD at 12:03 EDT , Chest X-Ray 02/06/22 10:48 IMPRESSION: Status post left thoracentesis. There is no evidence of pneumothorax. Persistent pleural parenchymal changes at the left lung base. Electronically Signed: Sreekanth Kenney MD at 11:07 EDT , Chest X-Ray 02/07/22 08:10 IMPRESSION: Increase in the left pleural effusion with left basilar infiltration and/or atelectasis. The right lung is clear. Electronically Signed: Sreekanth Kenney MD at 8:21 EDT , Physical Exam Const alert and oriented x3 Constitutional Narrative: Appears more comfortable today. Slight left eye lid droop, but does open with stimulation. General Appearance: in distress Positive for moderate Exam Limitations: no limitations Nutritional Appearance: thin HEENT head/scalp atraumatic and moist oral mucous membranes HEENT Narrative: NG tube in the right nares, Mallampati 2, no thrush Head and Scalp: normocephalic Eyes PERRL and EOMs intact bilaterally Eyes Narrative: Pale conjunctiva bilaterally, no scleral icterus Neck no lymphadenopathy, supple and no JVD Neck Narrative: Trachea midline, no thyroid enlargement Resp normal respiratory effort, no retractions, no use of accessory muscles and clear to auscultation bilaterally Auscultation: Negative for crackles, rales, rhonchi or wheezes Cardio regular rate, S1 normal heart sound, S2 normal heart sound, no murmurs, no rub, no gallops, no clicks and no JVD Cardio Narrative: Irregular rhythm GI soft to palpation and non-distended; Negative for hepatosplenomegaly GI Narrative: Abdomen is less tender diffusely but appears to localize at the left upper quadrant. Ostomy is pink with air noted in ostomy bag Extremity General Extremity: edema; Negative for clubbing or cyanosis Peripheral Pulses: Yes pulses 2+ throughout Skin no rashes or lesions noted, no wounds, skin turgor normal, no jaundice, no petechiae and no mottling Skin Narrative: Scattered ecchymotic areas from hospitalization but no other lesions noted Neuro oriented x3, CN's II-XII intact bilaterally, moves all extremities and no focal motor deficits Neuro Narrative: Generalized weakness Sensorium / Orientation: awake and alert Speech: speech normal Psych Psych Narrative: Affect is flattened mood is depressed Mood & Affect: depressed Charges/Coding Visit Charges Inpatient E&M: 32884 Subs Hosp L2
--- NOTE | 2022-02-07 09:07 | EKG12_ITS ---
Test Reason : CP Blood Pressure : / mmHG Vent. Rate : 092 BPM Atrial Rate : 092 BPM P-R Int : 146 ms QRS Dur : 078 ms QT Int : 332 ms P-R-T Axes : 019 072 009 degrees QTc Int : 410 ms Sinus rhythm with Premature atrial complexes Low voltage QRS Borderline ECG When compared with ECG of 04-FEB-2022 19:21, MANUAL COMPARISON REQUIRED, DATA IS UNCONFIRMED Confirmed by CY HASKINS, WILLIAM ([id number]), website/blog editor DAMIÁN GRIJALVA ([id number]) on 02/11/2022 2:08:16 PM Referred By: DAX Confirmed By:BIMAL BENOIT MD
--- NOTE | 2022-02-07 09:09 | EKG12_ITS ---
Test Reason : A-FIB RVR Blood Pressure : / mmHG Vent. Rate : 163 BPM Atrial Rate : 174 BPM P-R Int : 000 ms QRS Dur : 078 ms QT Int : 274 ms P-R-T Axes : 000 040 152 degrees QTc Int : 451 ms Atrial fibrillation with premature ventricular or aberrantly conducted complexes ST & T wave abnormality, consider inferior ischemia or digitalis effect Abnormal ECG When compared with ECG of 02-FEB-2022 19:22, MANUAL COMPARISON REQUIRED, DATA IS UNCONFIRMED Confirmed by CY HASKINS, WILLIAM ([id number]), brands editor DAMIÁN GRIJALVA ([id number]) on 02/08/2022 1:09:10 PM Referred By: Confirmed By:BIMAL BENOIT MD
--- NOTE | 2022-02-07 09:30 | RAD_ITS ---
STUDY: X-RAY CHEST REASON FOR EXAM: Female, 77 years old. Chest pain TECHNIQUE: Single AP portable view of the chest. COMPARISON: Comparison is made with prior study done earlier in the day. FINDINGS: A left-sided PICC line catheter is in situ with the tip at the junction of the superior vena cava and right atrium. An orogastric tube is seen with the tip below the left hemidiaphragm. EKG electrodes are seen. Stable small left pleural effusion with left basilar infiltration and/or atelectasis. There is no demonstrated pleural abnormality. Calcification of the mitral valve annulus. Normal mediastinum and shai. Normal visualized pulmonary arteries. There is atherosclerotic calcification of the aortic arch with tortuosity. There are degenerative changes of the visualized thoracic spine. There is degenerative osteoarthritis of the bilateral shoulders. There is no demonstrated abnormality of the visualized soft tissue structures of the upper abdomen. RAD/Chest 1 View (Portable) IMPRESSION: Stable examination. Electronically Signed: Sreekanth Kenney MD at 9:58 EDT ,
[2022-02-07 10:04] LABS: Troponin-I HS 44 pg/mL (3.0-54.0)
--- NOTE | 2022-02-07 10:06 | PN.HOSP_ITS ---
Subjective Subjective No specific issues overnight. Patient has been transferred to the PCU. She states overall that her abdominal symptoms are improved however this morning she developed chest pain when she developed A. fib with RVR. The A. fib has since resolved and she states that the chest pain is resolving and actually did resol ve completely while I was at the bedside doing her exam. She stated that the symptoms are more pleuritic in nature and most noticeable with a deep breath. She states she does feel little bit swollen overall. Objective Data Objective Data Vital Signs: Vital Signs Temp Pulse Resp BP Pulse Ox 98.2 F 82 18 164/108 H 96 02/07/22 05:35 02/07/22 08:33 02/07/22 05:35 02/07/22 08:33 02/07/22 05:35 Oxygen Flow Rate (L/min) 2 Oxygen Delivery Method [4] Room Air Oxygen Delivery Method [3] Room Air Oxygen Delivery Method [2] Room Air Oxygen Delivery Method [1 ( Room Air Initial Baseline)] Oxygen Delivery Method Nasal Cannula Weight: 50.5 kg Body Mass Index (BMI) 19.0 Intake & Output: Intake and Output for Last 24 Hours 02/05/22 02/06/22 02/07/22 23:59 23:59 23:59 Intake Total 3162.2333 / 3162.2333 2223.1 / 2223.1 420 / 420 Output Total 2950 / 2950 3105 / 3105 Balance 212.2333 / 212.2333 -881.9 / -881.9 420 / 420 Medical Nutrition Assessment Dietitian: Malnutrition Criteria Met Start: 02/02/22 13:10 Freq: Status: Active Protocol: Document 02/07/22 09:55 (Rec: 02/07/22 09:55 [id number]) Nutrition Malnutrition Evidence of Malnutrition Exists Yes Malnutrition (severe): Acute Illness/Injury Evidenced By Suboptimal Energy Intake ( Severe),Weight Loss (Severe), Physical Changes (Severe) Clinical Problem Acute Disease or Injury Related Malnutrition Etiology Severe protein/calorie malnutrition in the context of acute illness related to abd pain/inadequate oral intake and altered GI function Signs/Symptoms as evidenced by ~10% wt loss in less than 1 month, poor oral intake meeting less than 50% estimated nutrition needs, +NFPA indicating physical signs of malnutrition with severe muscle/fat wasting in the face, neck, clavicle, arms and legs Status Active Problem Recommendation Dietitian Recommendations/Changes 1.) For Day #4 TPN: recommend 1.5L 8%AA/14% dextrose at 63mL /hour to provide 1196 calories , 120 g protein. Famotidine and insulin added to TPN per provider order. 2.) Will monitor labs/ electrolytes closely. 3.) Daily weights ordered. Will trend weights as available. 4.) Will monitor for signs/ symptoms of refeeding syndrome . 5.) Will monitor for ability to reintroduce PO nutrition and recommend diet/ONS as indicated. Lab / Micro Data Result Diagrams: 02/07/22 05:20 02/07/22 05:20 Labs: Laboratory Results - last 24 hr 02/06/22 03:05: Diff Path Review Reviewed 02/06/22 10:42: Fluid Glucose 205 H, Fluid Total Protein 2.1, Fluid LDH 157 02/06/22 10:42: Fluid Source PLEURAL FLUID/LEFT, Fluid Color YELLOW, Fluid Appearance SL CLDY, Fluid WBC 3.711, Fluid RBC 1, Fluid Tot Cell Count 3.731 H, Fluid Neutrophils 72, Fluid Macrophages 7, Fld Mesothelial Cells 21, Fl Pathologist Comment May follow, Fluid Comment 2 SEE COMMENT 02/06/22 13:15: POC Glucose 210 H 02/06/22 18:45: POC Glucose 258 H 02/07/22 00:43: POC Glucose 187 H 02/07/22 05:20: WBC 15.7 H, RBC 4.72, Hgb 11.4 L, Hct 36.6 L, MCV 77.5 L, MCH 24.2 L, MCHC 31.1 L, RDW Std Deviation 45.4 H, RDW Coeff of Travis 16.2 H, Plt Count 230, MPV 10.3, Immature Gran % (Auto) 1.000 H, Neut % (Auto) 79.1 H, Lymph % (Auto) 7.1 L, [place] % (Auto) 10.5 H, Eos % (Auto) 2.0, Baso % (Auto) 0.3, Absolute Neuts (auto) 12.4 H, Absolute Lymphs (auto) 1.11, Nucleated RBC % 0, Differential Comment SCANNED, Diff Path Review May foll 02/07/22 05:20: Sodium 140, Potassium 3.5, Chloride 115 H, Carbon Dioxide 20.0 L , Anion Gap 5, BUN 20 H, Creatinine 0.43 L, Estim Creat Clear Calc 33.30, Est GFR (MDRD) Af Amer 182, Est GFR (MDRD) Non-Af 151, BUN/Creatinine Ratio 46.4 H, Glucose 186 H, Calcium 8.6 02/07/22 05:20: Phosphorus 1.3 L 02/07/22 05:20: Total Bilirubin 0.30, Direct Bilirubin < 0.05, AST 34, ALT 14, Alkaline Phosphatase 65, Lactate Dehydrogenase 570 H, Total Protein 5.7 L, Albumin 1.9 L, Globulin 3.8 02/07/22 05:38: POC Glucose 166 H 02/07/22 09:35: Troponin I High Sens 44 Micro: Microbiology 02/02/22 09:17 Blood Culture (Wb) - Left Hand Blood Culture - Final No growth in 5 days. 02/02/22 09:00 Blood Culture (Wb) - Left Hand Blood Culture - Final No growth in 5 days. 02/06/22 10:42 Fluid - Thoracentesis Fluid Gram Stain - Final 02/01/22 08:05 Nasal Secretion SARS-CoV-2 Antigen (Rapid) - Final Radiography Diagnostic Testing: Radiology Impression Thoracentesis Ultrasound 02/06/22 06:59 IMPRESSION: Ultrasound-guided left thoracentesis. Electronically Signed: Sreekanth Kenney MD at 12:03 EDT , Chest X-Ray 02/06/22 10:48 IMPRESSION: Status post left thoracentesis. There is no evidence of pneumothorax. Persistent pleural parenchymal changes at the left lung base. Electronically Signed: Sreekanth Kenney MD at 11:07 EDT , Chest X-Ray 02/07/22 08:10 IMPRESSION: Increase in the left pleural effusion with left basilar infiltration and/or atelectasis. The right lung is clear. Electronically Signed: Sreekanth Kenney MD at 8:21 EDT , Chest X-Ray 02/07/22 09:30 IMPRESSION: Stable examination. Electronically Signed: Sreekanth Kenney MD at 9:58 EDT , Physical Exam Const alert, oriented x3 and no apparent distress Constitutional Narrative: Cachectic, elderly white female sitting up in bed, watching television, appears slightly uncomfortable however comfort level improves during my exam, nontoxic but ill appearing General Appearance: cooperative Exam Limitations: no limitations Nutritional Appearance: cachectic HEENT normocephalic and head/scalp atraumatic HEENT Narrative: Oropharynx remains dry appearing however less so than previously, Mallampati is 2, dentition is fair, no thrush Head and Scalp: normocephalic Eyes PERRL and EOMs intact bilaterally Eyes Narrative: Pale conjunctiva bilaterally, no scleral icterus Neck no lymphadenopathy, supple and no JVD Neck Narrative: Trachea midline, no thyroid enlargement Resp normal respiratory effort, no retractions, no use of accessory muscles and clear to auscultation bilaterally Resp Narrative: Diminished left base to mid lung field with few crackles noted, right side is clear Auscultation: Negative for crackles, rales, rhonchi or wheezes Cardio regular rate, regular rhythm, S1 normal heart sound, S2 normal heart sound, no murmurs, no rub, no gallops, no clicks and no JVD Cardio Narrative: Intermittent ectopic beats GI soft to palpation and non-distended; Negative for hepatosplenomegaly GI Narrative: Abdomen is tender diffusely but soft predominant tenderness is in the left upper quadrant but tenderness seems improved today, no distention noted, bowel sounds now normoactive, ostomy with good output, ventral defect noted Extremity normal to inspection, full ROM and no clubbing, cyanosis or edema Extremity Narrative: Trace bilateral upper and lower extremity edema, no cyanosis or clubbing Peripheral Pulses: Yes pulses 2+ throughout Skin no rashes or lesions noted, no wounds, skin turgor normal, no jaundice, no petechiae and no mottling Skin Narrative: Scattered ecchymotic areas from hospitalization but no other lesions noted, left upper extremity PICC in place-dressing is clean and dry and intact, insertion site noted without any significant abnormalities Neuro oriented x3, moves all extremities and no focal motor deficits Neuro Narrative: Marked generalized weakness Sensorium / Orientation: awake and alert Speech: speech normal Psych affect normal Psych Narrative: Affect is flattened mood is depressed Mood & Affect: depressed Assessment & Plan Assessment/Plan (1) Pneumoperitoneum of unknown etiology: (2) Abdominal pain: QUALIFIERS: Abdominal location: epigastric Qualified Code(s): R10.13 - Epigastric pain (3) Leukocytosis: (4) Microcytic anemia: (5) Hyperchloremia: (6) Hypophosphatemia: (7) Severe malnutrition: (8) Pleural effusion: (9) Chest pain: PLAN: Pneumoperitoneum of unknown etiology with suspected peritonitis -Upper GI series showed no perforation or leak--> suspect that this is now walled off -Fady CT scan done last evening shows mildly improved but persistent pneumoperitoneum with a loculated area of fluid and air in the left subdi aphragmatic region that is suspicious for developing abscess and a left loculated pleural effusion -PERC drain ordered but unfortunately unable to do here secondary to complicated abdomen -Patient transferred to [facility] and still awaiting bed availability -[employer] salesperson will call later today for an update -Will need IR drainage and cultures to narrow antibiotics -Continue NG tube -Continue as needed pain medication and increase morphine to every 2 hours -Continue IV antibiotics as ordered -White count continues to improve on IV antibiotics -ID has been consulted for their opinion on antibiotics -Continue TPN Left-sided pleural effusion -Thoracentesis performed yesterday only 150 cc removed -Concerning for loculated effusion -Suspected parapneumonic effusion related to the subdiaphragmatic abscess -Definitive treatment would be drain placement however still awaiting transfer -May need chest tube if no improvement in the future with TPA to break up adhesions -Continue diuresis as patient is getting a significant volume between her TPN and her IV antibiotics -Goal will be euvolemia -Patient is currently 9-1/2 L for her hospitalization but was negative in the last 24 hours with the Lasix yesterday Atypical chest pain -Repeat chest x-ray was performed since the patient did have a thoracentesis yesterday -No pneumothorax noted -Pain seems predominantly pleuritic and has resolved -EKG shows normal sinus rhythm with few ectopic beats but no ST-T wave changes consistent with acute ischemia -We will cycle cardiac enzymes -Symptoms did occur while the patient was in a burst of atrial fibrillation which has since resolved Leukocytosis -Secondary to the above -White count remains elevated but overall relatively stable -Anticipate this will be remaining elevated until she gets the drain placed -Continue IV antibiotics -Blood cultures are negative Hypokalemia - resolved Hypophosphatemia -21 mmol of potassium phosphate given again today -Repeat in a.m. Hyperglycemia -Blood sugars are overall better however still elevated -Increase R TPN to 16 units -Continue to monitor blood sugar Severe malnutrition -Significant weight loss with marked decreased p.o. intake -PICC in place and patient is now on TPN -Anticipate prolonged n.p.o. status -Once able to take p.o. will need supplements added -Dietitian is following Microcytic anemia -Hemoglobin was normal on admission -Hemoglobin is currently stable -No signs of acute GI bleeding -Microcytosis appears to be chronic -Patient appears to be mildly iron deficient and would recommend p.o. 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 -Patient has a remaining large abdominal wall hernia and will need outpatient follow-up Paroxysmal atrial fibrillation -Continue IV metoprolol -Patient remains in normal sinus rhythm at this time -Echocardiogram shows an EF of 55% with stage I diastolic dysfunction and pulmonary artery systolic pressure 44 mmHg, mild biatrial enlargement -No anticoagulation secondary to possible surgical needs History of GI bleed -EGD done in August 2021 which showed moderate Schatzki's ring, stenosed Billroth I gastric duodenostomy with erosion, erythema and friability in the mucosa with hemorrhagic appearance and an intact staple line -Patient also had multiple jejunal ulcers with visible vessel which was treated -Colonoscopy was also done and showed redundant colon with patent and sigmoid colostomy characterized by ulceration and mild stenosis CAD/hypertension -Patient not on any baseline therapy -Continue metoprolol as ordered for PAF -We will add scheduled enalaprilat 0.625 -Monitor renal function -As needed hydralazine Urinary incontinence -Hold oxybutynin while patient is n.p.o. DVT prophylaxis -Subcu Lovenox CODE STATUS -Full code Dispo: -Still awaiting bed availability at [facility] for transfer and drain placement. Patient remains clinically stable at this time however definitive treatment is required for the left upper quadrant abscess. Charges/Coding Visit Charges Inpatient E&M: 18876 Subs Hosp L3
[2022-02-07] MEDS: Enoxaparin 40 MG/0.4 ML Syringe SC (10:52)
[2022-02-07 11:56] LABS: Pathologist Comment/Body Fluid Reviewed
[2022-02-07 11:59] LABS: Troponin-I HS 38 pg/mL (3.0-54.0)
[2022-02-07 12:00] LABS: Pathologist Review Reviewed
[2022-02-07] MEDS: Enalaprilat 1.25 MG/ML Vial 0.625 MG IV ×3 (12:10→23:43)
[2022-02-07 12:31] LABS: Bedside Glucose 159 mg/dL (74-106)
[2022-02-07 15:52] LABS: Troponin-I HS 38 pg/mL (3.0-54.0)
[2022-02-07] MEDS: TPN - Clinimix E 8%-14% Soln 2,000 ML with Multivitamins 10 ML, Trace Elements 1 ML, Fo... 63 ML IV (17:25)
[2022-02-07] MEDS: Furosemide 40 MG/4 ML Vial IV ×3 (17:49→23:42)
[2022-02-07 18:50] LABS: Bedside Glucose 182 mg/dL (74-106)
[2022-02-07] MEDS: Ketorolac 15 MG/ML Vial IV (22:10)
[2022-02-08] VITALS (15 sets, daily range): BP systolic 140–158; BP diastolic 69–127; PULSE 67–94; RESP 18; TEMP 36.4–36.9; O2SAT 93–100
[2022-02-08 00:11] LABS: Bedside Glucose 183 mg/dL (74-106)
[2022-02-08 05:54] LABS: Absolute Lymphocyte Count 1.26 X10^3/uL (0.83-4.51); Basophil# 0.03 X10^3/uL; Basophil% 0.2 % (0-1); Eosinophils% 3.8 % (0-5); Hematocrit 32.7 % (37-47); Hemoglobin 10.5 g/dL (12.0-15.0); Lymphocyte # 1.26 X10^3/ul (0.83-4.51); Lymphocyte % 9.5 % (19-41); Mean Corp Hgb Conc 32.1 g/dL (32-36); Mean Corpuscular Hgb 24.3 pg (27.0-32.0); Mean Corpuscular Volume 75.7 fL (81-99); Mean Platelet Vol. 10.4 fl (6.2-12.0); Monocyte% 10.6 % (0-10); NRBC Flagged by Analyzer 0 % (0-5); Neutrophil # 9.96 X10^3/uL (2.7-7.7); Neutrophil % 75.3 % (47-70); Platelet Count 239 K/mm3 (150-450); RBC Distribution Width CV 16.3 % (11.6-14.6); RBC Distribution Width SD 43.8 fl (35.1-43.9); Red Blood Count 4.32 M/mm3 (4.2-5.4); White Blood Count 13.2 K/mm3 (4.4-11.0)
[2022-02-08] MEDS: Enalaprilat 1.25 MG/ML Vial 0.625 MG IV ×4 (06:07→23:32)
[2022-02-08] MEDS: Metoprolol Tartrate 5 MG/5 ML Vial IV ×4 (06:07→23:31)
[2022-02-08] MEDS: 0.9% Saline Lock 10 ML Syringe IV ×5 (06:08→23:32)
[2022-02-08 06:26] LABS: Anion Gap 4 (5-15); BUN 34 mg/dL (7-18); BUN/Creat Ratio 65.8 RATIO (10-20); Calcium,Total 9.7 mg/dL (8.5-10.1); Chloride 114 mmol/L (98-107); Creatinine, Serum 0.52 mg/dL (0.55-1.02); EST Glomerular Filtration Rate 122 mL/min (>60); Est Glom Filt Rate - Afr Amer 148 mL/min (>60); Glucose 148 mg/dL (74-106); Potassium 3.3 mmol/L (3.5-5.1); Sodium Level 142 mmol/L (136-145)
[2022-02-08 06:55] LABS: Bedside Glucose 150 mg/dL (74-106)
--- NOTE | 2022-02-08 08:15 | PN.CC_ITS ---
Assessment & Plan Assessment/Plan (1) Gastric anastomotic leak: (2) Severe malnutrition: (3) Pneumoperitoneum of unknown etiology: (4) History of Rayray-en-Y gastric bypass: (5) Asthma: (6) Gastroparesis: (7) Failure to thrive in adult: PLAN: RECOMMENDATIONS: 1. Continue aggressive electrolyte repletion 2. Monitor blood pressure closely 3. Await transfer to tertiary center for interventional measures 4. Continue antibiotics. Possible need for chest tube with fibrinolytics 5. Continue with diuresis as renal function permits IMPRESSIONS: 1. Pneumoperitoneum of unknown etiology/acute hypoxic respiratory insufficiency secondary to parapneumonic effusion There is some suggestion of a possible phlegmon developing. Patient can and does have a pleural effusion. Chest x-ray this morning shows slightly worse effusion. Findings on thoracentesis suggestive of a neutrophilic exudate with preserved glucose, likely consistent with a parapneumonic effusion. This would be expected given probable abscess under the diaphragm. Patient still awaiting definitive therapy, but does appear to be improving with antibiotics. It is unlikely that this will respond to diuretics alone, but patient is significantly positive over the course of the hospitalization with high input related to TPN. Cannot exclude the need for chest tube with fibrinolytic therapy 2. Hypotension with reported A. fib/chronic diastolic dysfunction with probable type II pulmonary hypertension Hypotension appears to be related to loss of atrial kick with A. fib. Patient has received significant electrolyte repletion with improvement in sinus rhythm. Blood pressure is currently acceptable to slightly elevated. We will continue to monitor closely. Patient is significantly volume positive over the course of the hospitalization. Anticipate patient status will deteriorate if antibiotics discontinued without source control of the abscess. Continue diuresis as tolerated 3. Severe malnutrition with refeeding syndrome/nonanion gap hyperchloremic metabolic acidosis Aggressive electrolyte repletion has been ordered. Patient also receiving TPN. Anticipate high needs of supplementation. Patient appears to be tolerating TPN well. Volume is slightly an issue, but defer to surgery about possible enteral feeding. Will likely shoot for a higher potassium and magnesium given problem #2. 4. Urinary incontinence/extensive abdominal surgical history/advanced ag e/failure to thrive/history of Rayray-en-Y/reported asthma Complicates care, management, recovery and prognosis. TPN has been ordered. Patient with significant weight loss recently. Patient is not having any significant NG output or ostomy output. Patient reportedly has asthma/COPD with recent steroids. Unclear if this exacerbated problem #1, but patient does not appear to have significant wheezing at this time. Okay to use bronchodilators, but avoid steroids from my perspective. Subjective Subjective Patient did okay overnight. Patient subjectively feels her abdominal pain has resolved. Patient is reporting some ostomy output. Patient is reporting some sore throat that she attributes to her NG tube. Patient also has reported some difficulty expectorating secretions and has used a Yankauer to help with removal. Objective Data Objective Data Vital Signs: Vital Signs Temp Pulse Resp BP Pulse Ox 36.4 C L 67 18 158/99 H 100 02/08/22 04:00 02/08/22 06:35 02/08/22 04:00 02/08/22 06:07 02/08/22 07:14 Oxygen Flow Rate (L/min) 2 Oxygen Delivery Method [4] Room Air Oxygen Delivery Method [3] Room Air Oxygen Delivery Method [2] Room Air Oxygen Delivery Method [1 ( Room Air Initial Baseline)] Oxygen Delivery Method Nasal Cannula Weight: 47.1 kg Body Mass Index (BMI) 19.0 Intake & Output: Intake and Output for Last 24 Hours 02/06/22 02/07/22 02/08/22 23:59 23:59 23:59 Intake Total 2223.1 / 2223.1 2607.65 / 2667.65 233.75 / 233.75 Output Total 3105 / 3105 1300 / 3200 3000 / 3000 Balance -881.9 / -881.9 1307.65 / -532.35 -2766.25 / -2766.25 Medical Nutrition Assessment Dietitian: Malnutrition Criteria Met Start: 02/02/22 13:1 0 Freq: Status: Active Protocol: Document 02/07/22 09:55 AG (Rec: 02/07/22 09:55 AG [id number]) Nutrition Malnutrition Evidence of Malnutrition Exists Yes Malnutrition (severe): Acute Illness/Injury Evidenced By Suboptimal Energy Intake ( Severe),Weight Loss (Severe), Physical Changes (Severe) Clinical Problem Acute Disease or Injury Related Malnutrition Etiology Severe protein/calorie malnutrition in the context of acute illness related to abd pain/inadequate oral intake and altered GI function Signs/Symptoms as evidenced by ~10% wt loss in less than 1 month, poor oral intake meeting less than 50% estimated nutrition needs, +NFPA indicating physical signs of malnutrition with severe muscle/fat wasting in the face, neck, clavicle, arms and legs Status Active Problem Recommendation Dietitian Recommendations/Changes 1.) For Day #4 TPN: recommend 1.5L 8%AA/14% dextrose at 63mL /hour to provide 1196 calories , 120 g protein. Famotidine and insulin added to TPN per provider order. 2.) Will monitor labs/ electrolytes closely. 3.) Daily weights ordered. Will trend weights as available. 4.) Will monitor for signs/ symptoms of refeeding syndrome . 5.) Will monitor for ability to reintroduce PO nutrition and recommend diet/ONS as indicated. Lab / Micro Data Result Diagrams: 02/08/22 04:54 02/08/22 04:54 Labs: Laboratory Results - last 24 hr 02/06/22 10:42: Miscellaneous Test 02/06/22 10:42: Fl Pathologist Comment Reviewed 02/07/22 05:20: Diff Path Review Reviewed 02/07/22 05:20: Total Bilirubin 0.30, Direct Bilirubin < 0.05, AST 34, ALT 14, Alkaline Phosphatase 65, Lactate Dehydrogenase 570 H, Total Protein 5.7 L, Albumin 1.9 L, Globulin 3.8 02/07/22 09:35: Troponin I High Sens 44 02/07/22 11:27: Troponin I High Sens 38 02/07/22 12:03: POC Glucose 159 H 02/07/22 15:29: Troponin I High Sens 38 02/07/22 18:38: POC Glucose 182 H 02/07/22 23:36: POC Glucose 183 H 02/08/22 04:54: WBC 13.2 H, RBC 4.32, Hgb 10.5 L, Hct 32.7 L, MCV 75.7 L, MCH 24.3 L, MCHC 32.1, RDW Std Deviation 43.8, RDW Coeff of Travis 16.3 H, Plt Count 239, MPV 10.4, Immature Gran % (Auto) 0.600, Neut % (Auto) 75.3 H, Lymph % (Auto) 9.5 L, [place] % (Auto) 10.6 H, Eos % (Auto) 3.8, Baso % (Auto) 0.2, Absolute Neuts (auto) 10.0 H, Absolute Lymphs (auto) 1.26, Nucleated RBC % 0 02/08/22 04:54: Sodium 142, Potassium 3.3 L, Chloride 114 H, Carbon Dioxide 24.0, Anion Gap 4 L, BUN 34 H, Creatinine 0.52 L, Estim Creat Clear Calc 33.30, Est GFR (MDRD) Af Amer 148, Est GFR (MDRD) Non-Af 122, BUN/Creatinine Ratio 65.8 H, Glucose 148 H, Calcium 9.7 02/08/22 04:54: Phosphorus 2.0 L 02/08/22 06:06: POC Glucose 150 H Micro: Microbiology 02/06/22 10:42 Fluid - Thoracentesis Fluid Gram Stain - Final 02/06/22 10:42 Fluid - Thoracentesis Fluid Body Fluid Culture - Preliminary No growth-Final to follow 02/06/22 10:42 Fluid - Thoracentesis Fluid Anaerobic Culture - Preliminary No anaerobic bacteria isolated. 02/04/22 22:58 Blood Culture (Wb) - No Site/Description Given Blood Culture - Preliminary No growth in 48 hours. 02/04/22 22:40 Blood Culture (Wb) - No Site/Description Given Blood Culture - Preliminary No growth in 48 hours. 02/02/22 09:17 Blood Culture (Wb) - Left Hand Blood Culture - Final No growth in 5 days. 02/02/22 09:00 Blood Culture (Wb) - Left Hand Blood Culture - Final No growth in 5 days. 02/01/22 08:05 Nasal Secretion SARS-CoV-2 Antigen (Rapid) - Final Radiography Diagnostic Testing: Radiology Impression Chest X-Ray 02/07/22 08:10 IMPRESSION: Increase in the left pleural effusion with left basilar infiltration and/or atelectasis. The right lung is clear. Electronically Signed: Sreekanth Kenney MD at 8:21 EDT , Chest X-Ray 02/07/22 09:30 IMPRESSION: Stable examination. Electronically Signed: Sreekanth Kenney MD at 9:58 EDT , Physical Exam Const alert and oriented x3 Constitutional Narrative: Appears more comfortable today. No lid droop noted today General Appearance: in distress Positive for moderate Exam Limitations: no limitations Nutritional Appearance: thin HEENT head/scalp atraumatic and moist oral mucous membranes HEENT Narrative: NG tube in the right nares, Mallampati 2, no thrush Head and Scalp: normocephalic Eyes PERRL and EOMs intact bilaterally Eyes Narrative: Pale conjunctiva bilaterally, no scleral icterus Neck no lymphadenopathy, supple and no JVD Neck Narrative: Trachea midline, no thyroid enlargement Resp normal respiratory effort, no retractions, no use of accessory muscles and clear to auscultation bilaterally Auscultation: Negative for crackles, rales, rhonchi or wheezes Cardio regular rate, S1 normal heart sound, S2 normal heart sound, no murmurs, no rub, no gallops, no clicks and no JVD Cardio Narrative: Irregular rhythm GI soft to palpation and non-distended; Negative for hepatosplenomegaly GI Narrative: Abdomen is nontender. Some output noted in colostomy bag Extremity General Extremity: edema; Negative for clubbing or cyanosis Peripheral Pulses: Yes pulses 2+ throughout Skin no rashes or lesions noted, no wounds, skin turgor normal, no jaundice, no petechiae and no mottling Skin Narrative: Scattered ecchymotic areas from hospitalization but no other lesions noted Neuro oriented x3, CN's II-XII intact bilaterally, moves all extremities and no focal motor deficits Neuro Narrative: Generalized weakness Sensorium / Orientation: awake and alert Speech: speech normal Psych Psych Narrative: Affect is flattened mood is depressed Mood & Affect: depressed Charges/Coding Visit Charges Inpatient E&M: 10235 Subs Hosp L2
[2022-02-08] MEDS: Enoxaparin 40 MG/0.4 ML Syringe SC (09:17)
[2022-02-08] MEDS: Furosemide 40 MG/4 ML Vial IV ×2 (09:18→17:06)
[2022-02-08] MEDS: Ketorolac 15 MG/ML Vial IV (09:38)
--- NOTE | 2022-02-08 11:55 | PN.HOSP_ITS ---
Subjective Subjective No significant issues overnight. The patient looks the best she has looked since she has been hospitalized today. She is getting frustrated as she would like definitive treatment. She asked if she can go up there to have a drain placed and come back here and I explained that that is unfortunately not how its going to work for an inpatient. She does have some persistent left-sided pleuritic discomfort related to her parapneumonic effusion. She states her left upper quadrant pain is currently well managed with the medication she is receiving. She indicates she would like to get out of bed and walk some today. Objective Data Objective Data Vital Signs: Vital Signs Temp Pulse Resp BP Pulse Ox 97.8 F 94 18 150/127 H 97 02/08/22 11:26 02/08/22 11:30 02/08/22 11:26 02/08/22 11:26 02/08/22 11:26 Oxygen Flow Rate (L/min) 2 Oxygen Delivery Method [4] Room Air Oxygen Delivery Method [3] Room Air Oxygen Delivery Method [2] Room Air Oxygen Delivery Method [1 ( Room Air Initial Baseline)] Oxygen Delivery Method Nasal Cannula Weight: 47.1 kg Body Mass Index (BMI) 19.0 Intake & Output: Intake and Output for Last 24 Hours 02/06/22 02/07/22 02/08/22 23:59 23:59 23:59 Intake Total 2223.1 / 2223.1 2607.65 / 2667.65 499.75 / 499.75 Output Total 3105 / 3105 1300 / 3200 3400 / 3400 Balance -881.9 / -881.9 1307.65 / -532.35 -2900.25 / -2900.25 Medical Nutrition Assessment Dietitian: Malnutrition Criteria Met Start: 02/02/22 13:10 Freq: Status: Active Protocol: Document 02/07/22 09:55 AG (Rec: 02/07/22 09:55 [id number]) Nutrition Malnutrition Evidence of Malnutrition Exists Yes Malnutrition (severe): Acute Illness/Injury Evidenced By Suboptimal Energy Intake ( Severe),Weight Loss (Severe), Physical Changes (Severe) Clinical Problem Acute Disease or Injury Related Malnutrition Etiology Severe protein/calorie malnutrition in the context of acute illness related to abd pain/inadequate oral intake and altered GI function Signs/Symptoms as evidenced by ~10% wt loss in less than 1 month, poor oral intake meeting less than 50% estimated nutrition needs, +NFPA indicating physical signs of malnutrition with severe muscle/fat wasting in the face, neck, clavicle, arms and legs Status Active Problem Recommendation Dietitian Recommendations/Changes 1.) For Day #4 TPN: recommend 1.5L 8%AA/14% dextrose at 63mL /hour to provide 1196 calories , 120 g protein. Famotidine and insulin added to TPN per provider order. 2.) Will monitor labs/ electrolytes closely. 3.) Daily weights ordered. Will trend weights as available. 4.) Will monitor for signs/ symptoms of refeeding syndrome . 5.) Will monitor for ability to reintroduce PO nutrition and recommend diet/ONS as indicated. Lab / Micro Data Result Diagrams: 02/08/22 04:54 02/08/22 04:54 Labs: Laboratory Results - last 24 hr 02/06/22 10:42: Miscellaneous Test 02/06/22 10:42: Fl Pathologist Comment Reviewed 02/07/22 05:20: Diff Path Review Reviewed 02/07/22 11:27: Troponin I High Sens 38 02/07/22 12:03: POC Glucose 159 H 02/07/22 15:29: Troponin I High Sens 38 02/07/22 18:38: POC Glucose 182 H 02/07/22 23:36: POC Glucose 183 H 02/08/22 04:54: WBC 13.2 H, RBC 4.32, Hgb 10.5 L, Hct 32.7 L, MCV 75.7 L, MCH 24.3 L, MCHC 32.1, RDW Std Deviation 43.8, RDW Coeff of Travis 16.3 H, Plt Count 239, MPV 10.4, Immature Gran % (Auto) 0.600, Neut % (Auto) 75.3 H, Lymph % (Auto) 9.5 L, [place] % (Auto) 10.6 H, Eos % (Auto) 3.8, Baso % (Auto) 0.2, Absolute Neuts (auto) 10.0 H, Absolute Lymphs (auto) 1.26, Nucleated RBC % 0 02/08/22 04:54: Sodium 142, Potassium 3.3 L, Chloride 114 H, Carbon Dioxide 24.0, Anion Gap 4 L, BUN 34 H, Creatinine 0.52 L, Estim Creat Clear Calc 33.30, Est GFR (MDRD) Af Amer 148, Est GFR (MDRD) Non-Af 122, BUN/Creatinine Ratio 65.8 H, Glucose 148 H, Calcium 9.7 02/08/22 04:54: Phosphorus 2.0 L 02/08/22 06:06: POC Glucose 150 H Micro: Microbiology 02/06/22 10:42 Fluid - Thoracentesis Fluid Gram Stain - Final 02/06/22 10:42 Fluid - Thoracentesis Fluid Body Fluid Culture - Preliminary No growth-Final to follow 02/06/22 10:42 Fluid - Thoracentesis Fluid Anaerobic Culture - Preliminary No anaerobic bacteria isolated. 02/04/22 22:58 Blood Culture (Wb) - No Site/Description Given Blood Culture - Preliminary No growth in 48 hours. 02/04/22 22:40 Blood Culture (Wb) - No Site/Description Given Blood Culture - Preliminary No growth in 48 hours. 02/02/22 09:17 Blood Culture (Wb) - Left Hand Blood Culture - Final No growth in 5 days. 02/02/22 09:00 Blood Culture (Wb) - Left Hand Blood Culture - Final No growth in 5 days. 02/01/22 08:05 Nasal Secretion SARS-CoV-2 Antigen (Rapid) - Final Physical Exam Const alert, oriented x3 and no apparent distress Constitutional Narrative: Cachectic, elderly white female sitting up in bed, watching television, appears nontoxic and much more comfortable today, more interactive and less sleepy, nursing at bedside General Appearance: cooperative Exam Limitations: no limitations Nutritional Appearance: cachectic HEENT normocephalic and head/scalp atraumatic HEENT Narrative: NG tube right nares, mucous membranes are slightly dry, Mallampati is 2, no thrush Head and Scalp: normocephalic Resp normal respiratory effort, no retractions, no use of accessory muscles and clear to auscultation bilaterally Resp Narrative: Diminished left base to mid lung field with few crackles noted, few scattered rhonchi anteriorly and posteriorly on the left that seem to improve with coughing some, right side is clear Auscultation: rhonchi; Negative for crackles, rales or wheezes Cardio regular rate, regular rhythm, S1 normal heart sound, S2 normal heart sound, no murmurs, no rub, no gallops, no clicks and no JVD GI soft to palpation and non-distended; Negative for hepatosplenomegaly GI Narrative: Abdomen is tender diffusely but soft predominant tenderness is in the left upper quadrant, no distention noted, bowel sounds now normoactive, ostomy with good output, ventral defect noted Extremity normal to inspection, full ROM and no clubbing, cyanosis or edema Extremity Narrative: Edema improved Peripheral Pulses: Yes pulses 2+ throughout Skin Skin Narrative: Scattered ecchymotic areas from hospitalization but no other lesions noted, left upper extremity PICC in place-dressing is clean and dry and intact, insertion site noted without any significant abnormalities Neuro oriented x3, moves all extremities and no focal motor deficits Neuro Narrative: Marked generalized weakness Sensorium / Orientation: awake and alert Speech: speech normal Psych Psych Narrative: Affect remains slightly flat however mood seems to be improved today Assessment & Plan Assessment/Plan (1) Pneumoperitoneum of unknown etiology: (2) Abdominal pain: QUALIFIERS: Abdominal location: epigastric Qualified Code(s): R10.13 - Epigastric pain (3) Leukocytosis: (4) Microcytic anemia: (5) Hyperchloremia: (6) Hypophosphatemia: (7) Severe malnutrition: (8) Pleural effusion: (9) Chest pain: (10) Hypokalemia: PLAN: Pneumoperitoneum of unknown etiology with suspected peritonitis -Upper GI series showed no perforation or leak--> suspect that this is now walled off -Repeat CT scan done 02/04/2022 showed mildly improved but persistent pneumoperitoneum with a loculated area of fluid and air in the left subdiaphragmatic region that is suspicious for developing abscess and a left loculated pleural effusion -PERC drain ordered but unfortunately unable to do here secondary to complicated abdomen -Patient transferred to [facility] and still awaiting bed galindo ilability -With follow-up today no definitive date of transfer or idea when this possibly may occur -Transfer to [facility] in progress at this time -Will need IR drainage and cultures to narrow antibiotics -Continue NG tube -Continue n.p.o. until cleared for diet by GI or general surgery -Continue as needed pain medication and increase morphine to every 2 hours -Continue IV antibiotics as ordered -White count continues to improve on IV antibiotics -ID is following and patient remains on Zosyn at this time -Continue TPN -Clinically stable however definitive treatment needs to occur Parapneumonic left-sided pleural effusion -Thoracentesis performed yesterday only 150 cc removed -Concerning for loculated effusion -Suspected parapneumonic effusion related to the subdiaphragmatic abscess -Definitive treatment would be drain placement however still awaiting transfer -May need chest tube if no improvement in the future with TPA to break up adhesions -Continue diuresis as patient is getting a significant volume between her TPN and her IV antibiotics -Goal will be euvolemia--> negative almost 3 L in the last 24 hours -Patient is currently 7.5 L for her hospitalization down from 9.5 yesterday -Continue Lasix 40 mg IV push twice daily with daily BMPs and mag levels Atypical chest pain -Repeat chest x-ray was performed since the patient did have a thoracentesis yesterday -No pneumothorax noted -Improved today -Pain seems predominantly pleuritic and has resolved -EKG shows normal sinus rhythm with few ectopic beats but no ST-T wave changes consistent with acute ischemia -We will cycle cardiac enzymes -Symptoms did occur while the patient was in a burst of atrial fibrillation which has since resolved Leukocytosis -Secondary to the above -White count remains elevated but overall relatively stable -Anticipate this will be remaining elevated until she gets the drain placed -Continue IV antibiotics -Blood cultures are negative Hypokalemia -Mild with continued diuresis -Potassium phosphate bolus again today Hypophosphatemia -21 mmol of potassium phosphate given again today -Repeat in a.m. -Suspect component of refeeding with TPN Hyperglycemia -Blood sugars are overall better however still elevated -Continue 16 units of insulin in the TPN bag as blood sugars are improved overall -Continue to monitor blood sugar Severe malnutrition -Significant weight loss with marked decreased p.o. intake -PICC in place and patient is now on TPN -Anticipate prolonged n.p.o. status -Once able to take p.o. will need supplements added -Dietitian is following Microcytic anemia -Hemoglobin was normal on admission -Hemoglobin is currently stable -No signs of acute GI bleeding -Microcytosis appears to be chronic -Patient appears to be mildly iron deficient and would recommend p.o. 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 fib in approximately 24 hours -Echocardiogram shows an EF of 55% with stage I diastolic dysfunction and pulmonary artery systolic pressure 44 mmHg, mild biatrial enlargement -No anticoagulation secondary to possible surgical needs History of GI bleed -EGD done in August 2021 which showed moderate Schatzki's ring, stenosed Billroth I gastric duodenostomy with erosion, erythema and friability in the mucosa with hemorrhagic appearance and an intact staple line -Patient also had multiple jejunal ulcers with visible vessel which was treated -Colonoscopy was also done and showed redundant colon with patent and sigmoid c olostomy characterized by ulceration and mild stenosis CAD/hypertension -Patient not on any baseline therapy -Continue metoprolol as ordered for PAF -Continue scheduled enalaprilat 0.625--> monitor pressures with diuresis may need to increase this dose -Lasix 40 mg IV push twice daily -Monitor renal function -As needed hydralazine Urinary incontinence -Hold oxybutynin while patient is n.p.o. DVT prophylaxis -Subcu Lovenox CODE STATUS -Full code Dispo: -Still awaiting bed availability at [facility] for transfer and drain placement. Patient remains clinically stable at this time however definitive treatment is required for the left upper quadrant abscess. Calls and to [facility] as well for possible transfer sooner than bed availability has been acquired at [facility]. Charges/Coding Visit Charges Inpatient E&M: 25041 Subs Hosp L2
[2022-02-08 12:16] LABS: Bedside Glucose 160 mg/dL (74-106)
--- NOTE | 2022-02-08 12:59 | PCM.PN.ID ---
Physical Exam Narrative Feeling about the same. No fever, breathing stable, no abd pain. Const alert and no apparent distress General Appearance: cooperative Resp Auscultation: diminished lung sounds Cardio regular rate and regular rhythm GI soft to palpation, non-tender and non-distended Skin no rashes or lesions noted ID ID: Route of nutrition/ use of supplements: [] Nutritional Intake: [] IV Site: [] Oneal Catheter: [] Assessment & Plan Assessment/Plan (1) Pneumoperitoneum of unknown etiology: PLAN: CT shows worsening despite medical therapy. Transfer planned for further surgical eval. Continue zosyn. Thoracentesis done. Pt and both with covid vaccine x3. Wbc improving. Will follow, d/w primary team. (2) History of Rayray-en-Y gastric bypass: (3) History of colostomy:
--- NOTE | 2022-02-08 14:14 | PN.SURG_ITS ---
Subjective Subjective Slow clinical improvement noted Objective Data Objective Data Vital Signs: Vital Signs Temp Pulse Resp BP Pulse Ox 97.8 F 94 18 150/127 H 99 02/08/22 11:26 02/08/22 11:30 02/08/22 11:26 02/08/22 11:26 02/08/22 13:18 Oxygen Flow Rate (L/min) 2 Oxygen Delivery Method [4] Room Air Oxygen Delivery Method [3] Room Air Oxygen Delivery Method [2] Room Air Oxygen Delivery Method [1 ( Room Air Initial Baseline)] Oxygen Delivery Method Nasal Cannula Weight: 103 lb 13.404 oz Body Mass Index (BMI) 19.0 Intake & Output: Intake and Output for Last 24 Hours 02/06/22 02/07/22 02/08/22 23:59 23:59 23:59 Intake Total 2223.1 / 2223.1 2607.65 / 2667.65 756.75 / 756.75 Output Total 3105 / 3105 1300 / 3200 3400 / 3400 Balance -881.9 / -881.9 1307.65 / -532.35 -2643.25 / -2643.25 Medical Nutrition Assessment Dietitian: Malnutrition Criteria Met Start: 02/02/22 13:10 Freq: Status: Active Protocol: Document 02/07/22 09:55 AG (Rec: 02/07/22 09:55 [id number]) Nutrition Malnutrition Evidence of Malnutrition Exists Yes Malnutrition (severe): Acute Illness/Injury Evidenced By Suboptimal Energy Intake ( Severe),Weight Loss (Severe), Physical Changes (Severe) Clinical Problem Acute Disease or Injury Related Malnutrition Etiology Severe protein/calorie malnutrition in the context of acute illness related to abd pain/inadequate oral intake and altered GI function Signs/Symptoms as evidenced by ~10% wt loss in less than 1 month, poor oral intake meeting less than 50% estimated nutrition needs, +NFPA indicating physical signs of malnutrition with severe muscle/fat wasting in the face, neck, clavicle, arms and legs Status Active Problem Recommendation Dietitian Recommendations/Changes 1.) For Day #4 TPN: recommend 1.5L 8%AA/14% dextrose at 63mL /hour to provide 1196 calories , 120 g protein. Famotidine and insulin added to TPN per provider order. 2.) Will monitor labs/ electrolytes closely. 3.) Daily weights ordered. Will trend weights as available. 4.) Will monitor for signs/ symptoms of refeeding syndrome . 5.) Will monitor for ability to reintroduce PO nutrition and recommend diet/ONS as indicated. Lab / Micro Data Result Diagrams: 02/08/22 04:54 02/08/22 04:54 Labs: Laboratory Results - last 24 hr 02/06/22 10:42: Miscellaneous Test 02/07/22 15:29: Troponin I High Sens 38 02/07/22 18:38: POC Glucose 182 H 02/07/22 23:36: POC Glucose 183 H 02/08/22 04:54: WBC 13.2 H, RBC 4.32, Hgb 10.5 L, Hct 32.7 L, MCV 75.7 L, MCH 24.3 L, MCHC 32.1, RDW Std Deviation 43.8, RDW Coeff of Travis 16.3 H, Plt Count 239, MPV 10.4, Immature Gran % (Auto) 0.600, Neut % (Auto) 75.3 H, Lymph % (Auto) 9.5 L, [place] % (Auto) 10.6 H, Eos % (Auto) 3.8, Baso % (Auto) 0.2, Absolute Neuts (auto) 10.0 H, Absolute Lymphs (auto) 1.26, Nucleated RBC % 0 02/08/22 04:54: Sodium 142, Potassium 3.3 L, Chloride 114 H, Carbon Dioxide 24.0, Anion Gap 4 L, BUN 34 H, Creatinine 0.52 L, Estim Creat Clear Calc 33.30, Est GFR (MDRD) Af Amer 148, Est GFR (MDRD) Non-Af 122, BUN/Creatinine Ratio 65.8 H, Glucose 148 H, Calcium 9.7 02/08/22 04:54: Phosphorus 2.0 L 02/08/22 06:06: POC Glucose 150 H 02/08/22 11:33: POC Glucose 160 H Micro: Microbiology 02/06/22 10:42 Fluid - Thoracentesis Fluid Gram Stain - Final 02/06/22 10:42 Fluid - Thoracentesis Fluid Body Fluid Culture - Preliminary No growth-Final to follow 02/06/22 10:42 Fluid - Thoracentesis Fluid Anaerobic Culture - Preliminary No anaerobic bacteria isolated. 02/04/22 22:58 Blood Culture (Wb) - No Site/Description Given Blood Culture - Preliminary No growth in 48 hours. 02/04/22 22:40 Blood Culture (Wb) - No Site/Description Given Blood Culture - Preliminary No growth in 48 hours. 02/02/22 09:17 Blood Culture (Wb) - Left Hand Blood Culture - Final No growth in 5 days. 02/02/22 09:00 Blood Culture (Wb) - Left Hand Blood Culture - Final No growth in 5 days. 02/01/22 08:05 Nasal Secretion SARS-CoV-2 Antigen (Rapid) - Final Assessment & Plan Assessment/Plan (1) Gastric anastomotic leak: PLAN: I believe it would not be muse to initiate GI tract nutrition until the left upper quadrant fluid collection can be managed with drainage and a definitive treatment plan can be established for the original leak. I am very hopeful that the patient's tertiary referral will be able to address both of these issues. Adarsh Ibarra M.D., F.A.C.S.
[2022-02-08] MEDS: TPN - Clinimix E 8%-14% Soln 2,000 ML with Multivitamins 10 ML, Trace Elements 1 ML, Fo... 63 ML IV (16:34)
[2022-02-08] MEDS: Fat Emulsions 20% 250 ML IV (16:35)
[2022-02-08 17:11] LABS: Bedside Glucose 126 mg/dL (74-106)
[2022-02-08 21:10] LABS: Amylase Body Fluid 32 U/L (.); pH, Body Fluid 11254 7.2 (Not Estab.)
[2022-02-09] VITALS (13 sets, daily range): BP systolic 134–160; BP diastolic 79–96; PULSE 61–86; RESP 16–18; TEMP 36.1–37.2; O2SAT 97–99
[2022-02-09] LABS: Bedside Glucose 163 mg/dL (74-106)
[2022-02-09] MEDS: Oxymetazoline 0.05% 1 SPRAY SPRAY.BTL 2 SPRAY NASAL (02:00)
[2022-02-09] MEDS: Lidocaine 4% 5 ML Ampul 2 ML INHALATION (02:24)
--- NOTE | 2022-02-09 02:40 | RAD_ITS ---
STUDY: X-RAY - ABDOMEN/PELVIS REASON FOR EXAM: Female, 77 years old. NG tube placement TECHNIQUE: Single AP view of the abdomen / pelvis. COMPARISON: None. FINDINGS: PICC line is seen on the left side its tip is at the lower part of the superior vena cava. An NG tube is seen its tip is below the diaphragm is in good position. There is an unremarkable bowel gas pattern. There is small left pleural effusion. The visualized liver, spleen and kidneys are grossly normal in size and morphology. Normal soft tissue structures. Normal visualized osseous structures. RAD/Abdomen Single View (Portable) IMPRESSION: There is small left pleural effusion. Electronically Signed: Edmund Kaye MD at 4:03 EDT ,
--- NOTE | 2022-02-09 03:50 | RAD_ITS ---
STUDY: X-RAY CHEST REASON FOR EXAM: Female, 77 years old. NG -- portable TECHNIQUE: Single AP portable view of the chest. COMPARISON: None. FINDINGS: PICC line on the left side its tip is at the lower part of the superior vena cava. An NG tube is seen its tip is below the diaphragm is in good position. Compressive atelectasis in the left lung base. There is small left pleural effusion. Normal size heart. Normal mediastinum and shai. Normal visualized pulmonary arteries. Normal visualized aortic arch and descending thoracic aorta. Normal visualized thoracic spine. Normal visualized ribs, clavicles, and shoulders. There is no demonstrated abnormality of the visualized soft tissue structures of the upper abdomen. RAD/Chest 1 View (Portable) IMPRESSION: There is small left pleural effusion. Electronically Signed: Edmund Kaye MD at 5:50 EDT ,
[2022-02-09 05:32] LABS: Anion Gap 5 (5-15); BUN 36 mg/dL (7-18); BUN/Creat Ratio 74.2 RATIO (10-20); Calcium,Total 9.7 mg/dL (8.5-10.1); Chloride 116 mmol/L (98-107); Creatinine, Serum 0.48 mg/dL (0.55-1.02); EST Glomerular Filtration Rate 131 mL/min (>60); Est Glom Filt Rate - Afr Amer 159 mL/min (>60); Glucose 151 mg/dL (74-106); Magnesium 1.8 mg/dL (1.6-2.6); Phosphorus 1.9 mg/dL (2.5-4.9); Potassium 3.4 mmol/L (3.5-5.1); Sodium Level 142 mmol/L (136-145)
[2022-02-09] MEDS: Enalaprilat 1.25 MG/ML Vial 0.625 MG IV ×3 (06:09→17:27)
[2022-02-09] MEDS: Metoprolol Tartrate 5 MG/5 ML Vial IV ×3 (06:10→17:27)
[2022-02-09] MEDS: 0.9% Saline Lock 10 ML Syringe IV ×4 (06:12→16:15)
[2022-02-09 06:25] LABS: Bedside Glucose 158 mg/dL (74-106)
--- NOTE | 2022-02-09 07:41 | PCM.PN.INT ---
Assessment & Plan Assessment/Plan (1) Gastric anastomotic leak: (2) Severe malnutrition: (3) Pneumoperitoneum of unknown etiology: (4) History of Rayray-en-Y gastric bypass: (5) Asthma: (6) Gastroparesis: (7) Failure to thrive in adult: PLAN: RECOMMENDATIONS: 1. Continue aggressive electrolyte repletion 2. Monitor blood pressure closely 3. Await transfer to tertiary center for interventional measures 4. Continue antibiotics. Possible need for chest tube with fibrinolytics 5. Continue with diuresis as renal function permits 6. Reinitiate p.o. feeds once okay with surgery 7. Hemodynamically stable on room air. Will sign off and will clinical care perspective IMPRESSIONS: 1. Pneumoperitoneum of unknown etiology/acute hypoxic respiratory insufficiency secondary to parapneumonic effusion There is some suggestion of a possible phlegmon developing. Patient can and does have a pleural effusion. Chest x-ray this morning shows improvement in effusion. Findings on thoracentesis suggestive of a neutrophilic exudate with preserved glucose, likely consistent with a parapneumonic effusion. This would be expected given probable abscess under the diaphragm. Patient still awaiting definitive therapy, but does appear to be improving with antibiotics. It is unlikely that this will respond to diuretics alone, but patient is significantly positive over the course of the hospitalization with high input related to TPN. Cannot exclude the need for chest tube with fibrinolytic therapy. Fluid status will be a concern given patient's need for TPN. With caveats noted above, patient is hemodynamically stable on room air. Will sign off from a critical care perspective. Please call with any concerns or issues. 2. Hypotension with reported A. fib/chronic diastolic dysfunction with probable type II pulmonary hypertension Hypotension appears to be related to loss of atrial kick with A. fib. Patient has received significant electrolyte repletion with improvement in sinus rhythm. Blood pressure is currently acceptable to slightly elevated. We will continue to monitor closely. Patient is significantly volume positive over the course of the hospitalization. Anticipate patient status will deteriorate if antibiotics discontinued without source control of the abscess. Continue diuresis as tolerated 3. Severe malnutrition with refeeding syndrome/nonanion gap hyperchloremic metabolic acidosis Aggressive electrolyte repletion has been ordered. Patient also receiving TPN. Anticipate high needs of supplementation. Patient appears to be tolerating TPN well. Volume is slightly an issue, but defer to surgery about possible enteral feeding. Patient continues to require significant electrolyte repletion. Will likely shoot for a higher potassium and magnesium given problem #2. 4. Urinary incontinence/extensive abdominal surgical history/advanced age/failure to thrive/history of Rayray-en-Y/reported asthma Complicates care, management, recovery and prognosis. TPN has been ordered. Patient with significant weight loss recently. Patient is not having any significant NG output or ostomy output. Patient reportedly has asthma/COPD with recent steroids. Unclear if this exacerbated problem #1, but patient does not appear to have significant wheezing at this time. Okay to use bronchodilators, but avoid steroids from my perspective. Subjective Subjective Patient did well overnight. No acute issues are reported. Patient is denying any abdominal pain, but does state that she feels more bloated. Patient denies any shortness of breath, but does have some mild sore throat associated with her NG tube. Objective Data Objective Data Vital Signs: Vital Signs Temp Pulse Resp BP Pulse Ox 36.8 C 61 18 160/79 H 97 02/09/22 04:30 02/09/22 07:00 02/09/22 04:30 02/09/22 06:10 02/09/22 04:30 Oxygen Flow Rate (L/min) 2 Oxygen Delivery Method [4] Room Air Oxygen Delivery Method [3] Room Air Oxygen Delivery Method [2] Room Air Oxygen Delivery Method [1 ( Room Air Initial Baseline)] Oxygen Delivery Method Room Air Weight: 46.3 kg Body Mass Index (BMI) 19.0 Intake & Output: Intake and Output for Last 24 Hours 02/07/22 02/08/22 02/09/22 23:59 23:59 23:59 Intake Total 2607.65 / 2667.65 2368.70 / 2398.70 360 / 360 Output Total 1300 / 3200 3800 / 5150 1650 / 1650 Balance 1307.65 / -532.35 -1431.30 / -2751.30 -1290 / -1290 Medical Nutrition Assessment Dietitian: Malnutrition Criteria Met Start: 02/02/22 13:10 Freq: Status: Active Protocol: Document 02/07/22 09:55 AG (Rec: 02/07/22 09:55 [id number]) Nutrition Malnutrition Evidence of Malnutrition Exists Yes Malnutrition (severe): Acute Illness/Injury Evidenced By Suboptimal Energy Intake ( Severe),Weight Loss (Severe), Physical Changes (Severe) Clinical Problem Acute Disease or Injury Related Malnutrition Etiology Severe protein/calorie malnutrition in the context of acute illness related to abd pain/inadequate oral intake and altered GI function Signs/Symptoms as evidenced by ~10% wt loss in less than 1 month, poor oral intake meeting less than 50% estimated nutrition needs, +NFPA indicating physical signs of malnutrition with severe muscle/fat wasting in the face, neck, clavicle, arms and legs Status Active Problem Recommendation Dietitian Recommendations/Changes 1.) For Day #4 TPN: recommend 1.5L 8%AA/14% dextrose at 63mL /hour to provide 1196 calories , 120 g protein. Famotidine and insulin added to TPN per provider order. 2.) Will monitor labs/ electrolytes closely. 3.) Daily weights ordered. Will trend weights as available. 4.) Will monitor for signs/ symptoms of refeeding syndrome . 5.) Will monitor for ability to reintroduce PO nutrition and recommend diet/ONS as indicated. Lab / Micro Data Result Diagrams: 02/08/22 04:54 02/09/22 04:51 Labs: Laboratory Results - last 24 hr 02/06/22 10:42: Fluid pH 7.2, Fluid Amylase 32 02/08/22 11:33: POC Glucose 160 H 02/08/22 17:01: POC Glucose 126 H 02/08/22 23:38: POC Glucose 163 H 02/09/22 04:51: Sodium 142, Potassium 3.4 L, Chloride 116 H, Carbon Dioxide 21.0, Anion Gap 5, BUN 36 H, Creatinine 0.48 L, Estim Creat Clear Calc 33.30, Est GFR (MDRD) Af Amer 159, Est GFR (MDRD) Non-Af 131, BUN/Creatinine Ratio 74.2 H, Glucose 151 H, Calcium 9.7, Phosphorus 1.9 L, Magnesium 1.8 02/09/22 05:52: POC Glucose 158 H Micro: Microbiology 02/06/22 10:42 Fluid - Thoracentesis Fluid Gram Stain - Final 02/06/22 10:42 Fluid - Thoracentesis Fluid Body Fluid Culture - Preliminary No growth-Final to follow 02/06/22 10:42 Fluid - Thoracentesis Fluid Anaerobic Culture - Preliminary No anaerobic bacteria isolated. 02/04/22 22:58 Blood Culture (Wb) - No Site/Description Given Blood Culture - Preliminary No growth in 48 hours. 02/04/22 22:40 Blood Culture (Wb) - No Site/Description Given Blood Culture - Preliminary No growth in 48 hours. 02/02/22 09:17 Blood Culture (Wb) - Left Hand Blood Culture - Final No growth in 5 days. 02/02/22 09:00 Blood Culture (Wb) - Left Hand Blood Culture - Final No growth in 5 days. 02/01/22 08:05 Nasal Secretion SARS-CoV-2 Antigen (Rapid) - Final Radiography Diagnostic Testing: Radiology Impression KUB X-Ray 02/09/22 02:40 IMPRESSION: There is small left pleural effusion. Electronically Signed: Edmund Kaye MD at 4:03 EDT , Chest X-Ray 02/09/22 03:50 IMPRESSION: There is small left pleural effusion. Electronically Signed: Edmund Kaye MD at 5:50 EDT , Physical Exam Const alert and oriented x3 Constitutional Narrative: Appears more comfortable today. No lid droop noted today General Appearance: in distress Positive for moderate Exam Limitations: no limitations Nutritional Appearance: thin HEENT head/scalp atraumatic and moist oral mucous membranes HEENT Narrative: NG tube in the right nares, Mallampati 2, no thrush Head and Scalp: normocephalic Eyes PERRL and EOMs intact bilaterally Eyes Narrative: Pale conjunctiva bilaterally, no scleral icterus Neck no lymphadenopathy, supple and no JVD Neck Narrative: Trachea midline, no thyroid enlargement Resp normal respiratory effort, no retractions, no use of accessory muscles and clear to auscultation bilaterally Auscultation: Negative for crackles, rales, rhonchi or wheezes Cardio regular rate, S1 normal heart sound, S2 normal heart sound, no murmurs, no rub, no gallops, no clicks and no JVD Cardio Narrative: Irregular rhythm GI soft to palpation and non-distended; Negative for hepatosplenomegaly GI Narrative: Abdomen is nontender. Some output noted in colostomy bag. Active peristalsis noted. Extremity General Extremity: edema; Negative for clubbing or cyanosis Peripheral Pulses: Yes pulses 2+ throughout Skin no rashes or lesions noted, no wounds, skin turgor normal, no jaundice, no petechiae and no mottling Skin Narrative: Scattered ecchymotic areas from hospitalization but no other lesions noted Neuro oriented x3, CN's II-XII intact bilaterally, moves all extremities and no focal motor deficits Neuro Narrative: Generalized weakness Sensorium / Orientation: awake and alert Speech: speech normal Psych Psych Narrative: Affect is flattened mood is depressed Mood & Affect: depressed Charges/Coding Visit Charges Inpatient E&M: 17976 Subs Hosp L2
[2022-02-09] MEDS: Enoxaparin 40 MG/0.4 ML Syringe SC (10:19)
[2022-02-09] MEDS: Furosemide 40 MG/4 ML Vial IV ×2 (10:19→17:27)
--- NOTE | 2022-02-09 10:40 | DS.PCM_ITS ---
Providers Date of Admission: 02/01/22 Date of Discharge: 02/09/22 Primary Care Physician: Dr. Garret Coy MD Consultations 02/01/22 16:26 Consult: Gastroenterology Routine Consulting Provider: [facility] Reason for Consult: pneumoperitoneum EMERGENT Consult: No Notified: Yes Date Notified: 02/01/22 Time Notified: 16:28 Method of Notification: Text 02/01/22 17:09 Consult: General Surgery Routine Consulting Provider: Adarsh Ibarra Reason for Consult: pneumoperitoneum EMERGENT Consult: No Notified: Yes Date Notified: 02/01/22 Time Notified: 17:10 Method of Notification: Text 02/01/22 17:10 Consult: General Surgery Routine Consulting Provider: Adarsh Ibarra Reason for Consult: abd pain EMERGENT Consult: No Notified: Yes Date Notified: 02/01/22 Time Notified: 17:10 Method of Notification: Verbal 02/04/22 10:40 Consult: Onc/Wound/emergency communications operator Routine Comment: 02/04/22 22:19 Consult: Hand Marker / Pulmonary Medicine Routine Consulting Provider: Pulmonary [facility] Reason for Consult: Sepsis, hypotension EMERGENT Consult: No Notified: Yes Date Notified: 02/04/22 Time Notified: 21:10 Method of Notification: Text 02/05/22 06:57 Consult: Infectious Disease Routine Consulting Provider: Adarsh Man Reason for Consult: peritonitis/Intraabdominal abscess EMERGENT Consult: No Notified: Yes Date Notified: 02/05/22 Time Notified: 07:01 Method of Notification: Text Reason For Visit: PNEUMOPERITONEM Diagnosis Discharge Diagnosis (1) Gastric anastomotic leak: Status: Acute Code(s): K91.89 - Other postprocedural complications and disorders of digestive system (2) Severe malnutrition: Status: Acute Code(s): E43 - Unspecified severe protein-calorie malnutrition (3) Pneumoperitoneum of unknown etiology: Status: Acute Code(s): K66.8 - Other specified disorders of peritoneum (4) History of Rayray-en-Y gastric bypass: Status: Acute Code(s): Z98.84 - Bariatric surgery status (5) Asthma: Status: Chronic Code(s): J45.909 - Unspecified asthma, uncomplicated (6) Gastroparesis: Status: Chronic Code(s): K31.84 - Gastroparesis (7) Failure to thrive in adult: Status: Acute (8) Pleural effusion: Status: Acute Code(s): J90 - Pleural effusion, not elsewhere classified (9) Hypophosphatemia: Status: Acute Code(s): E83.39 - Other disorders of phosphorus metabolism (10) Hypokalemia: Status: Acute Code(s): E87.6 - Hypokalemia (11) Microcytic anemia: Status: Acute Code(s): D50.9 - Iron deficiency anemia, unspecified (12) Leukocytosis: Status: Acute Code(s): D72.829 - Elevated white blood cell count, unspecified (13) Paroxysmal atrial fibrillation with RVR: Status: Acute Code(s): I48.0 - Paroxysmal atrial fibrillation Medications at Discharge Home Medications acetaminophen 650 mg PO Q6H PRN PRN 08/02/16 aaqivvfq-zab-cplo fum-folic ac 1 tab PO DAILY 11/13/16 oxybutynin chloride 5 mg PO DAILY 08/24/21 metoclopramide HCl 5 mg tablet 5 mg PO BID #60 tab 01/11/22 albuterol sulfate INHALATION PRN 02/01/22 linaclotide [Linzess] See Rx Instructions .ROUTE .COMPLEX 02/01/22 pantoprazole 40 mg PO DAILY 02/01/22 Hospital Course Operations None Procedures 2-D Echocardiogram, PICC line placement, Thoracentesis and - (NG tube placement) Summary of Care Provided Minutes Spent on Discharge: 45 Hospital Course: Mrs. Sarmiento is a 77-year-old white female who presented to the emergency department at [facility] on 02/01/2022 with a chief complaint of abdominal pain. On presentation she reported that she had been having abdominal pain for approximately a week and stated that had been gradually worsening to the point that it was so severe she presented to the emergency department. She saw her primary care physician about 4 days prior secondary to nausea but was having no abdominal pain at that time. X-ray of her abdomen was done and showed constipation which is a chronic issue for her. She was given magnesium citrate and this helped her have bowel movements. Since then she has been having worsening abdominal pain that was predominantly located in the left upper quadrant. She acknowledged no aggravating or relieving factors but denied any current nausea, vomiting and her review of systems was otherwise negative at that time. In the emergency department her vital signs were overall stable other than elevated blood pressure at 155/84. A CT of her abdomen and pelvis was performed and showed pneumoperitoneum concerning for bowel perforation/ruptured viscus with redemonstration of a large anterior abdominal wall defect containing bowel loops and postsurgical changes. The patient had a known extensive past medical history involving several abdominal surgeries in 2016. She evidently underwent a laparoscopic Rayray-en-Y with rerouting of her stomach secondary to a hiatal hernia and severe GERD at the [facility] and then developed a perforated sigmoid diverticulum and was readmitted on 06/28/2016 at which time she underwent an open colectomy with an end colostomy. She had a recent EGD done on 12/27/2021 at which time she was noted to have abnormal esophageal motility, history of gastric bypass with a normal- sized pouch and intact staple line, gastrojejunal anastomosis characterized by friable mucosa and severe stenosis as well as hemorrhagic gastropathy. At that time, the severe stenosis was dilated and the patient unfortunately experiencing some hemorrhagic mucosa following the dilation the area of friable mucosa and epinephrine was injected to the area as well as coagulation for hemostasis using a heater probe was utilized. Hemostatic clips (x7) were also successfully placed to close the defect and there was no bleeding at the end of the procedure. Given the pneumoperitoneum a surgical consultation was initiated from the emergency department and she was seen by Dr. Ibarra. Given the pneumoperitoneum, obviously, perforation was suspected however the patient was deemed to have a hostile surgical abdomen giving her previous history and chronic medical issues. It was recommended that gastroenterology be consulted for consideration of an endoscopy least placed stent. She was seen by gastroenterology and an NG tube was placed with Gastrografin being placed through the NG tube to try to identify possible leak/abnormality. She was also placed on IV antibiotics. Repeat CAT scan showed worsening pneumoperitoneum the day following admission. Giving the worsening pneumoperitoneum a small bowel series was performed and negative for any leak at that time and she clinically improved with a white count that had trended down. Following the small bowel series it was anticipated that she had walled off the area of perforation and no further surgical intervention will be required however she developed worsening pain on the evening of 02/04/2022 and a repeat CAT scan was performed that identified slightly improved to stable pneumoperitoneum but a left upper quadrant abscess that had developed since her most recent scan. She developed some A. fib with RVR and was placed initially on PCU. She reverted to normal sinus rhythm without any intervention. She unfortunately redeveloped A. fib with RVR on 02/04/2022 and had concomitant hypotension and therefore was transferred to the ICU however her A. fib resolved independent of any significant treatment and her blood pressures improved. With the identification of the left upper quadrant abscess a interventionally guided drain was requested by interventional radiology however they declined placement given her complex abdominal history. At that time transfer to tertiary center was recommended for drain placement. The patient was accepted for transfer to [facility] on 02/05/2022 however there was no immediate bed availability. 8 tertiary centers were contacted at that time and none had immediate bed availability. She was maintained on IV antibiotics and seen by infectious disease. She remains on Zosyn at this time however definitive treatment is needed for the abscess. She was started on TPN on 02/05/2022 given her severe malnutrition and inability to take p.o. A left-sided thoracentesis was also performed on 02/06/2022 for developing left-sided pleural effusion. Studies appear to be consistent with parapneumonic effusion likely related to her ongoing subdiaphragmatic abscess located on the left. Given the lack of bed availability we did call [facility] and she was accepted for transfer on 02/08/2022 but again no immediate bed availability was given and she was placed on a wait list there as well. A bed finally became available on 02/09/2022 and she was discharged in stable condition. Discharge diagnoses: Pneumoperitoneum of unknown origin with suspected anastomotic perforation status post endoscopy dilation Intra-abdominal abscess left upper quadrant Parapneumonic effusion Atypical chest pain-resolved Paroxysmal atrial fibrillation with RVR Leukocytosis Hypokalemia Hypophosphatemia Hyperglycemia Severe malnutrition Hypertension Microcytic anemia GERD History of Rayray-en-Y gastric bypass/Billroth I History of GI bleed CAD Urinary incontinence Physical Exam Narrative Patient states she is feeling better, her left upper quadrant pain is managed well at this time Const alert, oriented x3 and no apparent distress Constitutional Narrative: Cachectic, elderly white female sitting up in bed, watching television, appears nontoxic appears comfortable again today, more interactive and less sleepy, nursing at bedside General Appearance: cooperative, comfortable, well kempt and well developed Exam Limitations: no limitations Nutritional Appearance: cachectic HEENT normocephalic, head/scalp atraumatic, hearing grossly normal bilaterally and moist oral mucous membranes HEENT Narrative: NG tube right nares, Mallampati 2, no thrush Eyes PERRL and EOMs intact bilaterally Eyes Narrative: Pale conjunctiva bilaterally, no scleral icterus Neck no lymphadenopathy, supple and no JVD Neck Narrative: Trachea midline, no thyroid enlargement Resp normal respiratory effort, no retractions, no use of accessory muscles and clear to auscultation bilaterally Resp Narrative: Diminished at left base, few crackles at left base, breath sounds are overall improved Auscultation: crackles; Negative for rales, rhonchi or wheezes Cardio regular rate, regular rhythm, S1 normal heart sound, S2 normal heart sound, no murmurs, no rub, no gallops, no clicks and no JVD Cardio Narrative: Intermittent ectopic beats GI soft to palpation and non-distended; Negative for hepatosplenomegaly GI Narrative: Mild tenderness left upper quadrant, no distention, bowel sounds are good, ostomy with good output, soft to palpation Extremity normal to inspection, full ROM and no clubbing, cyanosis or edema Extremity Narrative: Edema improved Skin no rashes or lesions noted, no wounds, skin turgor normal, no jaundice, no petechiae and no mottling Skin Narrative: Scattered ecchymotic areas from hospitalization but no other lesions noted, left upper extremity PICC in place-dressing is clean and dry and intact, insertion site noted without any significant abnormalities Neuro oriented x3, moves all extremities and no focal motor deficits Neuro Narrative: Marked generalized weakness Sensorium / Orientation: awake and alert Speech: speech normal Psych affect normal Psych Narrative: Patient more upbeat today Medical Records Data Medical Nutrition Assessment Dietitian: Malnutrition Criteria Met Start: 02/02/22 13:10 Freq: Status: Active Protocol: Document 02/09/22 09:47 (Rec: 02/09/22 09:47 [id number]) Nutrition Malnutrition Evidence of Malnutrition Exists Yes Malnutrition (severe): Acute Illness/Injury Evidenced By Suboptimal Energy Intake ( Severe),Weight Loss (Severe), Physical Changes (Severe) Clinical Problem Acute Disease or Injury Related Malnutrition Etiology Severe protein/calorie malnutrition in the context of acute illness related to abd pain/inadequate oral intake and altered GI function Signs/Symptoms as evidenced by ~10% wt loss in less than 1 month, poor oral intake meeting less than 50% estimated nutrition needs, +NFPA indicating physical signs of malnutrition with severe muscle/fat wasting in the face, neck, clavicle, arms and legs Status Active Problem Recommendation Dietitian Recommendations/Changes 1.) For Day #6 TPN: recommend 1.5L 8%AA/14% dextrose at 63mL /hour to provide 1196 calories , 120 g protein. Insulin and famotidine in TPN per provider order. 2.) Will monitor labs/ electrolytes closely. 3.) Daily weights ordered. Will trend weights as available. 4.) Will monitor for signs/ symptoms of refeeding syndrome . 5.) Will monitor for ability to reintroduce PO nutrition and recommend diet/ONS as indicated. Weight / BMI Weight Weight: 46.3 kg Body Mass Index (BMI) 19.0 ABG / Lab / Microbiology Data Result Diagrams: 02/08/22 04:54 02/09/22 04:51 Laboratory: Laboratory Results - last 24 hr 02/06/22 10:42: Fluid pH 7.2, Fluid Amylase 32 02/08/22 11:33: POC Glucose 160 H 02/08/22 17:01: POC Glucose 126 H 02/08/22 23:38: POC Glucose 163 H 02/09/22 04:51: Sodium 142, Potassium 3.4 L, Chloride 116 H, Carbon Dioxide 21.0, Anion Gap 5, BUN 36 H, Creatinine 0.48 L, Estim Creat Clear Calc 33.30, Est GFR (MDRD) Af Amer 159, Est GFR (MDRD) Non-Af 131, BUN/Creatinine Ratio 74.2 H, Glucose 151 H, Calcium 9.7, Phosphorus 1.9 L, Magnesium 1.8 02/09/22 05:52: POC Glucose 158 H Microbiology: Microbiology 02/06/22 10:42 Fluid - Thoracentesis Fluid Gram Stain - Final 02/06/22 10:42 Fluid - Thoracentesis Fluid Body Fluid Culture - Preliminary No growth-Final to follow 02/06/22 10:42 Fluid - Thoracentesis Fluid Anaerobic Culture - Preliminary No anaerobic bacteria isolated. 02/04/22 22:58 Blood Culture (Wb) - No Site/Description Given Blood Culture - Preliminary No growth in 48 hours. 02/04/22 22:40 Blood Culture (Wb) - No Site/Description Given Blood Culture - Preliminary No growth in 48 hours. 02/02/22 09:17 Blood Culture (Wb) - Left Hand Blood Culture - Final No growth in 5 days. 02/02/22 09:00 Blood Culture (Wb) - Left Hand Blood Culture - Final No growth in 5 days. 02/01/22 08:05 Nasal Secretion SARS-CoV-2 Antigen (Rapid) - Final Radiography Diagnostic Testing: Radiology Impression KUB X-Ray 02/09/22 02:40 IMPRESSION: There is small left pleural effusion. Electronically Signed: Edmund Kaye MD at 4:03 EDT , Chest X-Ray 02/09/22 03:50 IMPRESSION: There is small left pleural effusion. Electronically Signed: Edmund Kaye MD at 5:50 EDT , Meaningful Use Info Meaningful Use Diagnoses (Choose all that apply): None applicable Discharge Plan Admission Admit Date/Time: 02/01/22 14:22 Primary Reason for Your Visit: Abdominal pain Attending Provider: Myrna Shaffer Primary Care Provider: Garret Coy Chi Consulting Providers: Adarsh Ibarra ; Adarsh Man ; Carlos Galarza ; Maximus Lord ; Saumya Guillermo [employer]ACHUTE [employer]IGGER Discharge Orders/Prescriptions Prescriptions: No Action metoclopramide HCl 5 mg tablet 5 mg PO BID Qty: 60 RF: 0 acetaminophen 650 MG tablet extended release 650 mg PO Q6H PRN PRN (Reason: Pain) RF: 0 deqdbntx-pck-cwhz fum-folic ac 1 EACH tablet 1 tab PO DAILY RF: 0 oxybutynin chloride 5 mg tablet 5 mg PO DAILY RF: 0 albuterol sulfate 90 mcg/actuation HFA aerosol inhaler INHALATION PRN (Reason: Shortness Of Breath) RF: 0 pantoprazole 40 mg tablet,delayed release (DR/EC) 40 mg PO DAILY RF: 0 Linzess 145 mcg capsule See Rx Instructions .ROUTE .COMPLEX RF: 0 Referrals / Follow Up: Garret Coy Chi, MD [Primary Care Provider] - Within 1 Month Disposition Disposition (needs filled in before D/C Order can be placed): Acute Care Hospital Charges/Coding Visit Charges Inpatient E&M: 24781 Disch Hosp
[2022-02-09 12:10] LABS: Bedside Glucose 153 mg/dL (74-106)
--- NOTE | 2022-02-09 13:27 | NURSING ---
Report given to JC Boswell at this time. She will resume care of patient.
[2022-02-09] MEDS: TPN - Clinimix E 8%-14% Soln 2,000 ML with Multivitamins 10 ML, Trace Elements 1 ML, Fo... 63 ML IV (16:07)
[2022-02-09] MEDS: Morphine 2 MG/ML Syringe IV (16:14)
[2022-02-09 18:25] LABS: Bedside Glucose 183 mg/dL (74-106)
== END 2022-02-09 19:39 | disposition short-term general hospital (02) | DRG 393 ==
LOC: ED 14:17 → MS3 14:42 → PCU 02-04 07:07 → ICU 02-04 22:09 → PCU 02-06 14:08
PROVIDERS: Emergency Medicine; Nurse Practitioner Family; Admitting Provider Student in an Organized Health Care Education/Training Program; Emergency Provider Emergency Medicine; PCP Family Medicine Geriatric Medicine; Visit Provider Internal Medicine
DX: K66.8 Other specified disorders of peritoneum (principal); K65.1 Peritoneal abscess; E43 Unspecified severe protein-calorie malnutrition; K86.2 Cyst of pancreas; E87.2 Acidosis; Q43.8 Other specified congenital malformations of intestine; I50.32 Chronic diastolic (congestive) heart failure; Z68.1 Body mass index [BMI] 19.9 or less, adult; E83.39 Other disorders of phosphorus metabolism; R62.7 Adult failure to thrive; E87.8 Other disorders of electrolyte and fluid balance, not elsewhere classified; I95.9 Hypotension, unspecified; J44.9 Chronic obstructive pulmonary disease, unspecified; I48.0 Paroxysmal atrial fibrillation; I11.0 Hypertensive heart disease with heart failure; Z93.3 Colostomy status; K82.8 Other specified diseases of gallbladder; I25.10 Atherosclerotic heart disease of native coronary artery without angina pectoris; E78.5 Hyperlipidemia, unspecified; K21.9 Gastro-esophageal reflux disease without esophagitis; D50.9 Iron deficiency anemia, unspecified; D72.829 Elevated white blood cell count, unspecified; E87.6 Hypokalemia; K31.84 Gastroparesis; E83.42 Hypomagnesemia; G47.33 Obstructive sleep apnea (adult) (pediatric); K43.9 Ventral hernia without obstruction or gangrene; Z87.891 Personal history of nicotine dependence; R73.9 Hyperglycemia, unspecified; R32 Unspecified urinary incontinence; R09.02 Hypoxemia; Z79.899 Other long term (current) drug therapy; Z98.84 Bariatric surgery status
CPT/HCPCS: 32555; 36415; 36569; 71045; 71046; 74018; 74177; 74240; 80048; 80053; 80076; 81001; 82150; 82728; 82945; 82962; 83540; 83550; 83605; 83615; 83690; 83735; 83986; 84100; 84157; 84478; 84484; 85025; 85610; 85730; 86850; 86900; 86901; 87040; 87070; 87075; 87205; 87811; 88108; 88305; 88313; 88341; 88342; 89050; 93005; 93306; 94640; 97110; 97116; 97162; 97165; 97530; 97535; 97802; 97803; 99251; 99284; J7030; J7040; J7050; Q9957; Q9967; A4216; G0463; J1940; J2405; J3490

== ENCOUNTER 2022-04-03 18:18 | Emergency (ER) | payer MEDICARE, MEDICAID, SELFPAY ==
[2022-04-03 18:19] VITALS: BP 161/97; PULSE 54; RESP 16; TEMP 36.7; O2SAT 99
--- NOTE | 2022-04-03 18:48 | CT_ITS ---
STUDY: CT Abdomen And Pelvis W/ Contrast Injection 04/03/2022 8:54 PM REASON FOR EXAM: Female, 77 years old. ABDOMINAL PAIN Technologist Notes Left sided abdominal pain x2 days, hiatal hernia, colostomy, gastric bypass. TECHNIQUE: Transaxial images were obtained with oral contrast, and with Oral and amp; IV Gastrografin and amp; 75mL Isovue-300 intravenous contrast. Individualized dose optimization techniques were used for this CT. COMPARISON: Feb 04 2022 7:48pm FINDINGS: The visualized lung bases are unremarkable. The visualized portions of the heart are within normal limits. Unremarkable liver. Gallbladder is dilated at 47 mm in diameter. There are no visible calcified gallstones. Findings may suggest hydropic gallbladder. Unremarkable spleen. Unremarkable pancreas. Unremarkable bilateral adrenal glands. No acute findings of the right kidney. No acute findings of the left kidney. There are multiple surgical clips around the stomach. There are also anastomotic sutures around the stomach and altered gastrointestinal anatomy. This is consistent for prior gastric surgery (this may include sleeve, Lázaro, or gastric bypass and other types of gastric surgery). Unremarkable small intestine. Unremarkable colon. There is non-visualization of the appendix. There are calcifications of the abdominal aorta. This is consistent for atherosclerotic disease. There is no abdominal aortic aneurysm. Unremarkable inferior vena cava. Subcentimeter mesenteric lymph nodes. There is a left lower quadrant ostomy noted. Unremarkable urinary bladder. The uterus is lobulated in contour. There are multiple partially calcified masses in the uterus. This is consistent for a fibroid/ myomatous uterus. Large ventral hernia containing bowel. Strangulation or incarceration is not identified currently but not excluded. Exclusion is based on physical examination. A prospective or current developing event such as an obstruction cannot be excluded. Physical examination may be warranted in individuals with hernias. Surveillance may be warranted in individuals with hernias. There are diffuse degenerative changes of the visualized lumbar spine. Stable L1 compression deformity. CT/Abdomen/Pelvis WITH Contrast IMPRESSION: (NOT LISTED IN ORDER OF SIGNIFICANCE) Gallbladder is dilated at 47 mm in diameter. There are no visible calcified gallstones. Findings may suggest hydropic gallbladder. Fibroid uterus. Large ventral hernia containing bowel. Strangulation or incarceration is not identified currently but not excluded. Exclusion is based on physical examination. A prospective or current developing event such as an obstruction cannot be excluded. Physical examination may be warranted in individuals with hernias. Other findings as above. Electronically Signed: Mayito Sharif MD at 20:58 EDT ,
--- NOTE | 2022-04-03 18:50 | EDS_ITS ---
HPI History of Present Illness Chief Complaint: Abd Pain Informant: patient Onset/Context/Timing Onset: Yesterday Context: Gradual Onset Current Severity: Mild Narrative Narrative: Patient presents with left upper quadrant abdominal pain. She has an extensive history of abdominal surgeries including a Rayray-en-Y gastric bypass followed by colectomy secondary to a perforated diverticulum. In January of this past year she was admitted and transferred to [facility] with a small contained perforation from her Rayray-en-Y surgical site. Patient reports recurrent pain in the left upper quadrant that is worse when she lays down flat. She has had a poor appetite for several months. She has had good output from her colostomy. No fever or chills. [facility] Medical History Abdominal pain Allergic rhinitis due to allergen Anastomotic ulcer Asthma Atrial fibrillation with rapid ventricular response CAD (coronary artery disease) Congestive heart failure Constipation COPD (chronic obstructive pulmonary disease) Depression Dysphagia Easy bruising Failure to thrive in adult Former smoker Frequent falls Gastroparesis GERD (gastroesophageal reflux disease) Hiatal hernia History of IBS History of irregular heartbeat Hyperlipidemia Insomnia Mixed anxiety depressive disorder Myocardial infarction Obstructive sleep apnea Open wound Perforated diverticulum of large intestine Peristomal hernia Rectal pain Tobacco abuse Vitamin B12 deficiency Vitamin D deficiency Wears glasses Wound, open, scalp with complication Home Medications acetaminophen 650 mg PO Q6H PRN PRN 08/02/16 [History Last Taken Unknown] gbhkaske-pix-ivux fum-folic ac 1 tab PO DAILY 11/13/16 [History Last Taken Unknown] oxybutynin chloride 5 mg PO DAILY 08/24/21 [History Last Taken Unknown] albuterol sulfate 2 puff INHALATION Q2H PRN PRN 02/01/22 [History Last Taken Unknown] linaclotide [Linzess] See Rx Instructions .ROUTE .COMPLEX 02/01/22 [History Last Taken Unknown] apixaban [Eliquis] 5 mg PO BID 04/03/22 [History Last Taken Unknown] ondansetron 4 mg PO Q8H PRN #10 tab 04/03/22 [Rx Last Taken Unknown] tramadol 50 mg PO BID PRN #14 tab 04/03/22 [Rx Last Taken Unknown] Allergy/AdvReac Type Severity Reaction Status Date / Time hydromorphone [From Dilaudid] Allergy Unknown Unknown Verified 04/03/22 18:19 levofloxacin [From Levaquin] Allergy Hives Verified 04/03/22 18:19 Penicillins Allergy Hives Verified 04/03/22 18:19 Family History Mother No problems noted. Surgical History History of bilateral knee replacement History of cardiac catheterization History of colostomy History of esophagogastroduodenoscopy (EGD) History of Rayray-en-Y gastric bypass History of tonsillectomy S/P cataract surgery S/P colostomy Social History Smoking Status: Former smoker second hand exposure: No alcohol intake: never substance use type: does not use caffeine: Yes what type of physical activity do you participate in: none frequency: does not exercise seatbelt use: always ROS ROS ED Constitutional Constitutional ED: Denies chills or fever(s) Eyes Eyes: Denies change in vision ENT ENT ED: Denies sore throat Cardiovascular Cardiovascular: Denies chest pain Respiratory/Chest Respiratory/Chest: Denies cough or dyspnea Gastrointestinal Gastrointestinal: Reports abdominal pain and nausea; Denies diarrhea or vomiting Genitourinary Genitourinary ED: Denies dysuria Musculoskeletal Musculoskeletal: Denies back pain Integumentary Denies rash Neurologic Neurologic: Denies headache(s) or weakness Allergic/Immunologic Allergic/Immunologic ED: Denies urticaria EXAM Physical Exam Const Vital Signs: 04/03/22 18:19 04/03/22 19:19 04/03/22 20:06 Temperature 98.0 F Temperature Source Temporal Pulse Rate 54 L 69 51 L Respiratory Rate 16 17 18 Blood Pressure 161/97 H 158/73 H Blood Pressure Mean 118 101 Pulse Ox 99 98 97 Oxygen Delivery Method Room Air Room Air Room Air Positive well nourished and well developed General Appearance ED: well developed HEENT Reports moist mucous membranes Eyes PERRL and EOMs intact bilaterally Neck supple Chest Wall inspection of chest normal and palpation of chest normal Resp normal respiratory effort and clear to auscultation bilaterally GI GI Narrative: Mild tenderness in the left upper quadrant. No palpable masses. Hypoactive but present bowel sounds are noted. Palpation: soft Extremity normal to inspection Neuro oriented x3 Sensorium / Orientation: alert Psych mental status grossly normal Skin no rashes or lesions noted MDM MDM MDM Narrative Medical decision making narrative: Patient given small dose of morphine and Zofran. Lab work obtained. CT scan of the abdomen pelvis with p.o. and IV contrast ordered. Lab Data Attestation: I reviewed the patient's lab results. Labs: Laboratory Results - last 24 hr 04/03/22 04/03/22 18:34 18:34 WBC 7.5 RBC 4.22 Hgb 10.0 L Hct 33.3 L MCV 78.9 L MCH 23.7 L MCHC 30.0 L RDW Std Deviation 48.4 H RDW Coeff of Travis 17.0 H Plt Count 334 MPV 9.9 Immature Gran % (Auto) 0.400 Neut % (Auto) 59.2 Lymph % (Auto) 26.1 [place] % (Auto) 12.6 H Eos % (Auto) 1.3 Baso % (Auto) 0.4 Absolute Neuts (auto) 4.4 Absolute Lymphs (auto) 1.95 Nucleated RBC % 0 Sodium 141 Potassium 3.5 Chloride 107 Carbon Dioxide 26.0 Anion Gap 8 BUN 15 Creatinine 0.63 Estim Creat Clear Calc 33.30 Est GFR (MDRD) Af Amer 118 Est GFR (MDRD) Non-Af 97 BUN/Creatinine Ratio 23.8 H Glucose 119 H Calcium 10.7 H Total Bilirubin 0.50 Direct Bilirubin 0.20 AST 14 L ALT 15 Alkaline Phosphatase 82 Total Protein 7.2 Albumin 3.5 Globulin 3.7 Lipase 32 L Radiography Diagnostic Testing: Clinical Impression(s) from Imaging Studies Abdomen/Pelvis CT 04/03/22 18:48 IMPRESSION: (NOT LISTED IN ORDER OF SIGNIFICANCE) Gallbladder is dilated at 47 mm in diameter. There are no visible calcified gallstones. Findings may suggest hydropic gallbladder. Fibroid uterus. Large ventral hernia containing bowel. Strangulation or incarceration is not identified currently but not excluded. Exclusion is based on physical examination. A prospective or current developing event such as an obstruction cannot be excluded. Physical examination may be warranted in individuals with hernias. Other findings as above. Electronically Signed: Myaito Sharif MD at 20:58 EDT , Treatment and Re-Evaluation Narrative: Patient resting comfortably on repeat exam. Lab work is unremarkable. CT scan reveals enlarged gallbladder. This appears unchanged when compared to her prior scans. She has no tenderness in the right upper quadrant and has normal LFTs. Patient does have evidence of a large ventral hernia. There is no evidence of strangulation or incarceration on exam. She has had good output in her colostomy. There is no evidence of abscess or perforation at this time. I did question as to whether the patient may have some scar tissue pulling as she does state that the pain is worse when she lays down flat. She has been treated with tramadol in the past and done well. I will write her a short course of this. I am trying to avoid Percocet and [place] so we do not cause increased constipation and further abdominal pain. She will also be written for Zofran. Patient is to follow-up with her GI specialist, Dr. Casanova. Return instructions are given. Discharge Plan Triage Chief Complaint: Abd Pain ED Provider: Tiara Gutierrez Dx/Rx/DC Orders Clinical Impression: Abdominal pain Instructions: ED Abdominal Pain Unkn Cause Fem Prescriptions: New tramadol 50 mg tablet 50 mg PO BID PRN (Reason: pain) Qty: 14 RF: 0 ondansetron 4 mg tablet,disintegrating 4 mg PO Q8H PRN (Reason: nausea and vomiting) Qty: 10 RF: 0 No Action acetaminophen 650 MG tablet extended release 650 mg PO Q6H PRN PRN (Reason: Pain) RF: 0 [id number] fum-folic ac 1 EACH tablet 1 tab PO DAILY RF: 0 oxybutynin chloride 5 mg tablet 5 mg PO DAILY RF: 0 albuterol sulfate 90 mcg/actuation HFA aerosol inhaler 2 puff INHALATION Q2H PRN PRN (Reason: Shortness Of Breath) RF: 0 Linzess 145 mcg capsule See Rx Instructions .ROUTE .COMPLEX RF: 0 Eliquis 5 mg tablet 5 mg PO BID RF: 0 Primary Care Provider: Garret Coy Chi Referrals: Blu Casanova DO [STAFF PHYSICIAN] - 10-14 Days if not better Garret Coy Chi, MD [Primary Care Provider] - Disposition Disposition: Home, Self Care
[2022-04-03] MEDS: Ondansetron 4 MG/2 ML Vial IV (18:53)
[2022-04-03] MEDS: Morphine 2 MG/ML Syringe IV (18:54)
[2022-04-03 19:00] LABS: Absolute Lymphocyte Count 1.95 X10^3/uL (0.83-4.51); Absolute Neutrophil Count 4.4 X10^3/uL (2.0-7.7); Basophil# 0.03 X10^3/uL; Basophil% 0.4 % (0-1); Eosinophils% 1.3 % (0-5); Hematocrit 33.3 % (37-47); Lymphocyte # 1.95 X10^3/ul (0.83-4.51); Lymphocyte % 26.1 % (19-41); Mean Corpuscular Hgb 23.7 pg (27.0-32.0); Mean Corpuscular Volume 78.9 fL (81-99); Mean Platelet Vol. 9.9 fl (6.2-12.0); Monocyte# 0.94 X10^3/uL; Monocyte% 12.6 % (0-10); NRBC Flagged by Analyzer 0 % (0-5); Neutrophil # 4.42 X10^3/uL (2.7-7.7); Neutrophil % 59.2 % (47-70); Platelet Count 334 K/mm3 (150-450); RBC Distribution Width SD 48.4 fl (35.1-43.9); Red Blood Count 4.22 M/mm3 (4.2-5.4); White Blood Count 7.5 K/mm3 (4.4-11.0)
[2022-04-03 19:19] VITALS: PULSE 69; RESP 17; O2SAT 98
[2022-04-03 19:21] LABS: AST(SGOT) 14 U/L (15-37); Alanine Aminotransfer ALT/SGPT 15 U/L (13-56); Albumin, Serum 3.5 g/dL (3.2-5.0); Alkaline Phosphatase 82 U/L (45-117); Anion Gap 8 (5-15); BUN 15 mg/dL (7-18); BUN/Creat Ratio 23.8 RATIO (10-20); Calcium,Total 10.7 mg/dL (8.5-10.1); Chloride 107 mmol/L (98-107); Creatinine, Serum 0.63 mg/dL (0.55-1.02); EST Glomerular Filtration Rate 97 mL/min (>60); Est Glom Filt Rate - Afr Amer 118 mL/min (>60); Globulin 3.7 g/dL (2.2-4.2); Glucose 119 mg/dL (74-106); Lipase 32 U/L (73-393); Potassium 3.5 mmol/L (3.5-5.1); Protein, Total 7.2 g/dL (6.4-8.2); Sodium Level 141 mmol/L (136-145)
[2022-04-03] MEDS: 0.9% Normal Saline 1,000 ML 100 ML IV (19:28)
[2022-04-03 20:06] VITALS: BP 158/73; PULSE 51; RESP 18; O2SAT 97
[2022-04-03 21:37] VITALS: BP 150/74; PULSE 50; RESP 17; O2SAT 95
== END 2022-04-03 22:01 | disposition home or self-care (01) ==
PROVIDERS: Emergency Provider Emergency Medicine; PCP Family Medicine Geriatric Medicine; Visit Provider Emergency Medicine
DX: R10.12 Left upper quadrant pain (principal); J44.9 Chronic obstructive pulmonary disease, unspecified; I25.10 Atherosclerotic heart disease of native coronary artery without angina pectoris; I25.2 Old myocardial infarction; G47.33 Obstructive sleep apnea (adult) (pediatric); Z87.891 Personal history of nicotine dependence; Z79.01 Long term (current) use of anticoagulants; Z79.899 Other long term (current) drug therapy
CPT/HCPCS: 74177; 80048; 80076; 83690; 85025; 96361; 96374; 96375; 99282; J7030; Q9967; A4216; J2405

== ENCOUNTER → 2022-04-24 | Outpatient (CLI) | payer MEDICARE, MEDICAID, SELFPAY ==
[2022-04-24 11:15] LABS: Hematocrit 29.9 % (37-47); Hemoglobin 8.9 g/dL (12.0-15.0); Mean Corp Hgb Conc 29.8 g/dL (32-36); Mean Corpuscular Hgb 23.1 pg (27.0-32.0); Mean Corpuscular Volume 77.5 fL (81-99); Mean Platelet Vol. 9.8 fl (6.2-12.0); Platelet Count 302 K/mm3 (150-450); RBC Distribution Width CV 16.1 % (11.6-14.6); RBC Distribution Width SD 46.1 fl (35.1-43.9); Red Blood Count 3.86 M/mm3 (4.2-5.4); White Blood Count 5.6 K/mm3 (4.4-11.0)
[2022-04-24 11:29] LABS: Vitamin D,25 Hydroxy 44.1 ng/mL
[2022-04-24 11:35] LABS: ALB/GLOB Ratio 0.9 RATIO (0.9-2.4); AST(SGOT) 15 U/L (15-37); Alanine Aminotransfer ALT/SGPT 14 U/L (13-56); Alkaline Phosphatase 79 U/L (45-117); Anion Gap 4 (5-15); BUN 15 mg/dL (7-18); BUN/Creat Ratio 23.6 RATIO (10-20); Calcium,Total 9.7 mg/dL (8.5-10.1); Chloride 114 mmol/L (98-107); Creatinine, Serum 0.64 mg/dL (0.55-1.02); EST Glomerular Filtration Rate 96 mL/min (>60); Est Glom Filt Rate - Afr Amer 116 mL/min (>60); Globulin 3.2 g/dL (2.2-4.2); Glucose 113 mg/dL (74-106); Potassium 3.7 mmol/L (3.5-5.1); Protein, Total 6.2 g/dL (6.4-8.2); Sodium Level 142 mmol/L (136-145); Thyroid Stim Hormone (TSH) 1.97 uIU/mL (0.358-3.74)
== END | disposition home or self-care (01) ==
LOC: POLAB3 10:29
PROVIDERS: PCP Family Medicine Geriatric Medicine; Visit Provider Family Medicine Geriatric Medicine
DX: I10 Essential (primary) hypertension (principal); E55.9 Vitamin D deficiency, unspecified
CPT/HCPCS: 36415; 80053; 82306; 84443; 85027

== ENCOUNTER → 2022-10-30 | Outpatient (CLI) | payer MEDICARE, MEDICAID, SELFPAY ==
[2022-10-30 12:55] LABS: Absolute Lymphocyte Count 1.79 X10^3/uL (0.83-4.51); Absolute Neutrophil Count 4.4 X10^3/uL (2.0-7.7); Basophil# 0.05 X10^3/uL; Basophil% 0.7 % (0-1); Eosinophil# 0.48 X10^3/uL; Eosinophils% 6.3 % (0-5); Hematocrit 39.9 % (37-47); Hemoglobin 12.6 g/dL (12.0-15.0); Lymphocyte # 1.79 X10^3/ul (0.83-4.51); Lymphocyte % 23.6 % (19-41); Mean Corp Hgb Conc 31.6 g/dL (32-36); Mean Corpuscular Hgb 26.5 pg (27.0-32.0); Mean Corpuscular Volume 83.8 fL (81-99); Mean Platelet Vol. 9.7 fl (6.2-12.0); Monocyte# 0.87 X10^3/uL; Monocyte% 11.5 % (0-10); NRBC Flagged by Analyzer 0 % (0-5); Neutrophil # 4.37 X10^3/uL (2.7-7.7); Neutrophil % 57.6 % (47-70); Platelet Count 285 K/mm3 (150-450); RBC Distribution Width CV 15.8 % (11.6-14.6); RBC Distribution Width SD 48.8 fl (35.1-43.9); Red Blood Count 4.76 M/mm3 (4.2-5.4); White Blood Count 7.6 K/mm3 (4.4-11.0)
[2022-10-30 13:12] LABS: Vitamin D,25 Hydroxy 39.7 ng/mL
[2022-10-30 13:14] LABS: AST(SGOT) 19 U/L (15-37); Alanine Aminotransfer ALT/SGPT 19 U/L (13-56); Albumin, Serum 3.3 g/dL (3.2-5.0); Alkaline Phosphatase 84 U/L (45-117); Anion Gap 6 (5-15); BUN 13 mg/dL (7-18); BUN/Creat Ratio 16.8 RATIO (10-20); Calcium,Total 10.2 mg/dL (8.5-10.1); Chloride 110 mmol/L (98-107); Creatinine, Serum 0.78 mg/dL (0.55-1.02); EST Glomerular Filtration Rate 76 mL/min (>60); Est Glom Filt Rate - Afr Amer 92 mL/min (>60); Globulin 3.2 g/dL (2.2-4.2); Glucose 73 mg/dL (74-106); Potassium 3.9 mmol/L (3.5-5.1); Protein, Total 6.5 g/dL (6.4-8.2); Sodium Level 143 mmol/L (136-145); Thyroid Stim Hormone (TSH) 1.96 uIU/mL (0.358-3.74)
== END | disposition home or self-care (01) ==
LOC: POLAB3 11:07
PROVIDERS: PCP Family Medicine Geriatric Medicine; Visit Provider Family Medicine Geriatric Medicine
DX: I10 Essential (primary) hypertension (principal); E55.9 Vitamin D deficiency, unspecified
CPT/HCPCS: 36415; 80053; 82306; 84443; 85025

== ENCOUNTER → 2023-05-06 | Outpatient (CLI) | payer MEDICARE, MEDICAID, SELFPAY ==
[2023-05-06 16:02] LABS: Absolute Lymphocyte Count 2.11 X10^3/uL (0.83-4.51); Absolute Neutrophil Count 3.5 X10^3/uL (2.0-7.7); Basophil# 0.07 X10^3/uL; Eosinophil# 0.53 X10^3/uL; Eosinophils% 7.6 % (0-5); Hematocrit 39.5 % (37-47); Hemoglobin 13.3 g/dL (12.0-15.0); Lymphocyte # 2.11 X10^3/ul (0.83-4.51); Lymphocyte % 30.4 % (19-41); Mean Corp Hgb Conc 33.7 g/dL (32-36); Mean Corpuscular Hgb 28.6 pg (27.0-32.0); Mean Corpuscular Volume 84.9 fL (81-99); Mean Platelet Vol. 10.2 fl (6.2-12.0); Monocyte# 0.73 X10^3/uL; Monocyte% 10.5 % (0-10); NRBC Flagged by Analyzer 0 % (0-5); Neutrophil # 3.48 X10^3/uL (2.7-7.7); Neutrophil % 50.4 % (47-70); Platelet Count 267 K/mm3 (150-450); RBC Distribution Width SD 46.3 fl (35.1-43.9); Red Blood Count 4.65 M/mm3 (4.2-5.4); White Blood Count 6.9 K/mm3 (4.4-11.0)
[2023-05-06 16:28] LABS: Vitamin D,25 Hydroxy 43.5 ng/mL
[2023-05-06 19:18] LABS: ALB/GLOB Ratio 0.9 RATIO (0.9-2.4); AST(SGOT) 23 U/L (15-37); Alanine Aminotransfer ALT/SGPT 20 U/L (13-56); Albumin, Serum 3.2 g/dL (3.2-5.0); Alkaline Phosphatase 83 U/L (45-117); Anion Gap 6 (5-15); BUN 15 mg/dL (7-18); BUN/Creat Ratio 18.5 RATIO (10-20); Calcium,Total 10.5 mg/dL (8.5-10.1); Chloride 112 mmol/L (98-107); Creatinine, Serum 0.81 mg/dL (0.55-1.02); EST Glomerular Filtration Rate 72 mL/min (>60); Est Glom Filt Rate - Afr Amer 87 mL/min (>60); Globulin 3.6 g/dL (2.2-4.2); Glucose 145 mg/dL (74-106); Potassium 3.6 mmol/L (3.5-5.1); Protein, Total 6.8 g/dL (6.4-8.2); Sodium Level 140 mmol/L (136-145); Thyroid Stim Hormone (TSH) 2.35 uIU/mL (0.358-3.74)
== END | disposition home or self-care (01) ==
PROVIDERS: PCP Family Medicine Geriatric Medicine; Visit Provider Family Medicine Geriatric Medicine
DX: I10 Essential (primary) hypertension (principal); E55.9 Vitamin D deficiency, unspecified; R35.1 Nocturia
CPT/HCPCS: 36415; 80053; 82306; 84443; 85025; 87086; 87088; 87186

== ENCOUNTER → 2023-05-19 | Outpatient (CLI) | payer MEDICARE, MEDICAID, SELFPAY ==
[2023-05-19 11:57] LABS: Anion Gap 3 (5-15); BUN 10 mg/dL (7-18); BUN/Creat Ratio 13.9 RATIO (10-20); Calcium,Total 10.1 mg/dL (8.5-10.1); Chloride 112 mmol/L (98-107); Creatinine, Serum 0.72 mg/dL (0.55-1.02); EST Glomerular Filtration Rate 83 mL/min (>60); Est Glom Filt Rate - Afr Amer 101 mL/min (>60); Glucose 81 mg/dL (74-106); Potassium 3.4 mmol/L (3.5-5.1); Sodium Level 141 mmol/L (136-145)
== END | disposition home or self-care (01) ==
LOC: LAB 10:01
PROVIDERS: PCP Family Medicine Geriatric Medicine; Referring Provider Family Medicine Geriatric Medicine; Visit Provider Family Medicine Geriatric Medicine
DX: E83.42 Hypomagnesemia (principal)
CPT/HCPCS: 36415; 80048

== ENCOUNTER → 2023-11-05 | Outpatient (CLI) | payer MEDICARE, MEDICAID, SELFPAY ==
[2023-11-05 15:34] LABS: Absolute Lymphocyte Count 2.32 X10^3/uL (0.83-4.51); Absolute Neutrophil Count 3.3 X10^3/uL (2.0-7.7); Basophil# 0.05 X10^3/uL; Basophil% 0.7 % (0-1); Eosinophil# 0.44 X10^3/uL; Eosinophils% 6.4 % (0-5); Hematocrit 44.6 % (37-47); Hemoglobin 14.1 g/dL (12.0-15.0); Lymphocyte # 2.32 X10^3/ul (0.83-4.51); Lymphocyte % 33.9 % (19-41); Mean Corp Hgb Conc 31.6 g/dL (32-36); Mean Corpuscular Hgb 27.8 pg (27.0-32.0); Mean Corpuscular Volume 87.8 fL (81-99); Mean Platelet Vol. 9.8 fl (6.2-12.0); Monocyte# 0.73 X10^3/uL; Monocyte% 10.7 % (0-10); NRBC Flagged by Analyzer 0 % (0-5); Neutrophil # 3.29 X10^3/uL (2.7-7.7); Neutrophil % 48.2 % (47-70); Platelet Count 256 K/mm3 (150-450); RBC Distribution Width SD 45.3 fl (35.1-43.9); Red Blood Count 5.08 M/mm3 (4.2-5.4); White Blood Count 6.8 K/mm3 (4.4-11.0)
[2023-11-05 16:00] LABS: Vitamin D,25 Hydroxy 48.6 ng/mL
[2023-11-05 16:14] LABS: ALB/GLOB Ratio 0.9 RATIO (0.9-2.4); AST(SGOT) 25 U/L (15-37); Alanine Aminotransfer ALT/SGPT 22 U/L (13-56); Albumin, Serum 3.4 g/dL (3.2-5.0); Alkaline Phosphatase 87 U/L (45-117); Anion Gap 7 (5-15); BUN 12 mg/dL (7-18); BUN/Creat Ratio 14.4 RATIO (10-20); Calcium,Total 10.4 mg/dL (8.5-10.1); Chloride 111 mmol/L (98-107); Creatinine, Serum 0.83 mg/dL (0.55-1.02); EST Glomerular Filtration Rate 70 mL/min (>60); Est Glom Filt Rate - Afr Amer 85 mL/min (>60); Globulin 3.7 g/dL (2.2-4.2); Glucose 179 mg/dL (74-106); Potassium 3.8 mmol/L (3.5-5.1); Protein, Total 7.1 g/dL (6.4-8.2); Sodium Level 141 mmol/L (136-145); Thyroid Stim Hormone (TSH) 3.13 uIU/mL (0.358-3.74)
[2023-11-06 11:15] LABS: Hemoglobin A1c 5.4 % (3.8-5.6)
== END | disposition home or self-care (01) ==
LOC: POLAB3 13:03
PROVIDERS: PCP Family Medicine Geriatric Medicine; Visit Provider Family Medicine Geriatric Medicine
DX: I10 Essential (primary) hypertension (principal); E78.5 Hyperlipidemia, unspecified; E55.9 Vitamin D deficiency, unspecified
CPT/HCPCS: 36415; 80053; 82306; 83036; 84443; 85025

== ENCOUNTER → 2024-01-06 | Outpatient (CLI) | payer MEDICARE, MEDICAID, SELFPAY ==
--- NOTE | 2024-01-06 15:55 | RAD_ITS ---
EXAM: XR ABDOMEN, 2 VIEWS CLINICAL INDICATION: FECAL IMPACTION TECHNIQUE: 3 views. COMPARISON: No relevant prior studies available. FINDINGS: LOWER THORAX: Unremarkable lung bases. Thick rim of mitral valve annular presumed calcification. INTRAPERITONEAL SPACE: No free air. GASTROINTESTINAL TRACT: There is moderate gas in the colon, minimal stool visible. Extensive postoperative changes in the left upper quadrant and a ring of fine sutures in the expected region of the rectum or rectosigmoid. Mild scattered small bowel gas. Non-obstructive. No bowel or stomach distention. ORGANS: Unremarkable as visualized. No organomegaly. No abnormal calcifications. BONES/JOINTS: Mild degenerative spine changes. SOFT TISSUES: There are left paramedian vertical skin jani in the infraumbilical abdomen and pelvis and for additional jani projecting over the left iliac bone and hip. RAD/Abd Inc Decub and/or Erect IMPRESSION: 1. Mildly prominent bowel gas. No or minimal formed stool. Extensive postoperative changes. 2. Clear lung bases. 3. Degenerative spine changes. Electronically Signed: Ruth Dunham MD at 6:03 EDT ,
[2024-01-06 16:14] LABS: Absolute Lymphocyte Count 2.23 X10^3/uL (0.83-4.51); Absolute Neutrophil Count 8.2 X10^3/uL (2.0-7.7); Basophil# 0.06 X10^3/uL; Basophil% 0.5 % (0-1); Eosinophil# 0.18 X10^3/uL; Eosinophils% 1.6 % (0-5); Hematocrit 39.1 % (37-47); Hemoglobin 12.7 g/dL (12.0-15.0); Lymphocyte # 2.23 X10^3/ul (0.83-4.51); Lymphocyte % 19.2 % (19-41); Mean Corp Hgb Conc 32.5 g/dL (32-36); Mean Corpuscular Hgb 28.1 pg (27.0-32.0); Mean Corpuscular Volume 86.5 fL (81-99); Mean Platelet Vol. 9.6 fl (6.2-12.0); Monocyte# 0.87 X10^3/uL; Monocyte% 7.5 % (0-10); NRBC Flagged by Analyzer 0 % (0-5); Neutrophil % 70.7 % (47-70); Platelet Count 491 K/mm3 (150-450); RBC Distribution Width SD 43.6 fl (35.1-43.9); Red Blood Count 4.52 M/mm3 (4.2-5.4); White Blood Count 11.6 K/mm3 (4.4-11.0)
[2024-01-06 16:31] LABS: Color, Urine Yellow (Yellow); Glucose, Dipstick Normal (Normal); Ketone-Dipstick 15 mg/dl (Negative); Leukocyte Esterase-Dipstick 25 /ul (Negative); Nitrite-Dipstick Negative (Negative); Occult Blood-Urine 10 /ul (Negative); Protein-Dipstick 15 mg/dl (Negative); Urine Clarity Clear (Clear); Urine Urobilinogen 4 mg/dl (Normal)
[2024-01-06 16:54] LABS: Urine Bilirubin Dipstick 1 mg/dL (Negative)
[2024-01-06 17:06] LABS: Anion Gap 7 (5-15); BUN 12 mg/dL (7-18); BUN/Creat Ratio 15.7 RATIO (10-20); Calcium,Total 12.6 mg/dL (8.5-10.1); Chloride 109 mmol/L (98-107); Creatinine, Serum 0.76 mg/dL (0.55-1.02); EST Glomerular Filtration Rate 78 mL/min (>60); Est Glom Filt Rate - Afr Amer 94 mL/min (>60); Glucose 133 mg/dL (74-106); Potassium 3.2 mmol/L (3.5-5.1); Sodium Level 141 mmol/L (136-145)
== END | disposition home or self-care (01) ==
PROVIDERS: PCP Family Medicine Geriatric Medicine; Referring Provider Family Medicine Geriatric Medicine; Visit Provider Family Medicine Geriatric Medicine
DX: K56.41 Fecal impaction (principal); K43.9 Ventral hernia without obstruction or gangrene
CPT/HCPCS: 36415; 74019; 80048; 81002; 85025

== ENCOUNTER 2024-01-07 12:39 | Outpatient (CLI) | payer MEDICARE, MEDICAID, SELFPAY ==
[2024-01-07 13:07] VITALS: BP 155/85; PULSE 84; RESP 16; TEMP 36.7; O2SAT 97; BMI 19.7
[2024-01-07] MEDS: 0.9% NaCl Peripheral Flush Adult/Peds IV (13:20)
[2024-01-07] MEDS: 0.9% Normal Saline (1000mL) 1,000 ML 999 ML IV ×2 (13:21→14:28)
[2024-01-07 15:48] VITALS: BP 136/73; PULSE 72; RESP 16
--- OUTSIDE RECORDS SUMMARY | 2024-01-07 20:56 | XMS RPT_ITS | CCD ---
Author Name Unknown Address [address] [place] [address] Organization [facility] Care Team Providers Care Material Hauler Name Role Phone Carlos Galarza Unavailable Zbigniew, Garret Chi Primary Care Provider JARED, PARISA Referring Unavailable ZBIGNIEW, GARRET CHI Primary Care Unavailable JARED, PARISA Referring Unavailable ZBIGNIEW, GARRET CHI Primary Care Unavailable JARED, PARISA Attending Unavailable ZBIGNIEW, GARRET CHI Primary Care Unavailable ZBIGNIEW, GARRET CHI Referring Unavailable JARED, PARISA Attending Unavailable JARED, PARISA Referring Unavailable JARED, PARISA Attending Unavailable ZBIGNIEW, GARRET CHI Primary Care Unavailable ZBIGNIEW, GARRET CHI Primary Care Unavailable JARED, PARISA Attending Unavailable ZBIGNIEW, GARRET CHI Primary Care Unavailable JARED, PARISA Attending Unavailable ZBIGNIEW, GARRET CHI Referring Unavailable ZBIGNIEW, GARRET CHI Primary Care Unavailable Awender, H Attending Unavailable JARED, PARISA Referring Unavailable ZBIGNIEW, GARRET CHI Primary Care Unavailable ZBIGNIEW, GARRET CHI Primary Care Unavailable Awender, H Admitting Unavailable Awender, H Attending Unavailable Awender, H Referring Unavailable ZBIGNIEW, GARRET CHI Primary Care Unavailable RICARDO, MEIHE Referring Unavailable ZBIGNIEW, GARRET CHI Primary Care Unavailable Awender, H Attending Unavailable Awender, H Referring Unavailable ZBIGNIEW, GARRET CHI Primary Care Unavailable JARED, PARISA Attending Unavailable Carlos Galarza MD Unavailable Zbigniew, Garret Chi Primary Care Provider JARED, PARISA Referring Unavailable ZBIGNIEW, GARRET CHI Primary Care Unavailable ZBIGNIEW, GARRET CHI Primary Care Unavailable JARED, PARISA Referring Unavailable ZBIGNIEW, GARRET CHI Primary Care Unavailable JARED, PARISA Referring Unavailable Allergies Allergy Classification Reported Allergen(s) Allergy Type Date of Onset Reaction(s) Facility (20 sources) HYDROmorphone; Translations: [HYDROMORPHONE (PF)] Drug Allergy 6 Hives [facility] (20 sources) levoFLOXacin; Translations: [LEVOFLOXACIN] Drug Allergy 1 Hives, Swelling, Itching [facility] Work Phone: (20 sources) oxyCODONE; Translations: [OXYCODONE] Drug Allergy 6 Mental Status Change [facility] (5 sources) Penicillins; Translations: [PENICILLINS] Drug Intolerance 5 Hives, Intolerance [facility] Work Phone: (20 sources) Penicillins Drug Intolerance 5 Hives, Intolerance [facility] Work Phone: Medications Current Medications Medication Drug Class(es) Dates Sig (Normalized) Sig (Original) docusate sodium 50 mg / sennosides, halfway 8.6 mg oral tablet (3 sources) Start: 01-01-2024 End: 2024 take 1 tablet by mouth once daily senna-docusate (SENNA-S) 8.6-50 mg per tablet Take 1 tablet by mouth once daily. 30 tablet 0 01/01/2024 2024 Active Completed/Discontinued Medications Medication Drug Class(es) Dates Sig (Normalized) Sig (Original) 8 hr acetaminophen 650 mg extended release oral tablet (20 sources) take 1 tablet by mouth every eight hours as needed acetaminophen 650 mg CR tablet Take 650 mg by mouth every 8 hours as needed. 0 Active Problems Active Problems Problem Classification Problem Date Documented Da te Episodic/Chronic Abdominal hernia (20 sources) Parastomal hernia; Translations: [Parastomal hernia with obstruction, without gangrene] Onset: 6 07-06-2016 Episodic Acute myocardial infarction (20 sources) Myocardial infarction; Translations: [Non-ST elevation (NSTEMI) myocardial infarction] Onset: 6 07-02-2016 Chronic Adjustment disorders (20 sources) Adjustment disorder with depressed mood; Translations: [Adjustment disorder with depressed mood] 08-06-2010 Chronic Asthma (20 sources) Severe persistent asthma; Translations: [Severe persistent asthma, uncomplicated] Onset: 1 10-17-2011 Chronic Cardiac dysrhythmias (20 sources) Atrial fibrillation; Translations: [Unspecified atrial fibrillation] Onset: 6 07-02-2016 Chronic Chronic obstructive pulmonary disease and bronchiectasis (20 sources) Acute exacerbation of bronchiectasis; Translations: [Bronchiectasis with (acute) exacerbation] Onset: 9 02-28-2009 Chronic Chronic obstructive pulmonary disease and bronchiectasis (1 source) Chronic obstructive pulmonary disease and bronchiectasis; Translations: [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)] Onset: 3 Coagulation and hemorrhagic disorders (20 sources) Blood coagulation disorder; Translations: [Hemorrhagic disorder due to extrinsic circulating anticoagulants] Onset: 6 07-09-2016 Chronic Congestive heart failure; nonhypertensive (20 sources) Heart failure with reduced ejection fraction; Translations: [Unspecified systolic (congestive) heart failure] Onset: 6 07-03-2016 Chronic Disorders of lipid metabolism (20 sources) Hyperlipidemia; Translations: [Hyperlipidemia, unspecified] Onset: 3 10-22-2021 Chronic Esophageal disorders (20 sources) Gastroesophageal reflux disease; Translations: [Gastro-esophageal reflux disease without esophagitis] Onset: 1 10-17-2011 Chronic Essential hypertension (20 sources) Benign essential hypertension; Translations: [Essential (primary) hypertension] Onset: 3 08-06-2010 Chronic Gastroduodenal ulcer (except hemorrhage) (15 sources) Ulcer of anastomosis; Translations: [Gastrojejunal ulcer, unspecified as acute or chronic, without hemorrhage or perforation] Onset: 3 05-22-2023 Chronic Nutritional deficiencies (20 sources) Moderate protein energy malnutrition; Translations: [Moderate protein-calorie malnutrition] Onset: 6 07-26-2016 Chronic Other and ill-defined heart disease (20 sources) Takotsubo cardiomyopathy; Translations: [Takotsubo syndrome] Onset: 6 07-09-2016 Chronic Other diseases of bladder and urethra (20 sources) Overactive bladder; Translations: [Overactive bladder] Onset: 4 12-01-2013 Chronic Other gastrointestinal disorders (10 sources) Colostomy present; Translations: [Encounter for attention to colostomy] Onset: 3 09-15-2023 Chronic Other gastrointestinal disorders (1 source) Encounter for attention to colostomy; Translations: [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)] Onset: 3 Chronic Other gastrointestinal disorders (20 sources) H/O: GIT by-pass; Translations: [Bariatric surgery status] Onset: 2 02-18-2022 Episodic Other gastrointestinal disorders (2 sources) Esophageal dysphagia; Translations: [Other dysphagia] Episodic Other gastrointestinal disorders (1 source) Heartburn; Translations: [Heartburn] Episodic Other nutritional; endocrine; and metabolic disorders (20 sources) Obesity; Translations: [Obesity, unspecified] Onset: 6 05-29-2016 Chronic Other skin disorders (13 sources) H/O: skin recipient; 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] Onset: 7 02-18-2022 Chronic Other skin disorders (12 sources) Postoperative state; 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] Onset: 7 02-18-2022 Chronic Other upper respiratory disease (20 sources) Allergic rhinitis; Translations: [Allergic rhinitis, unspecified] Onset: 1 10-17-2011 Chronic Other upper respiratory disease (20 sources) Allergic rhinitis due to pollen; Translations: [Allergic rhinitis due to pollen] Onset: 6 01-01-2016 Chronic Pulmonary heart disease (15 sources) Pulmonary hypertension; Translations: [Pulmonary hypertension, unspecified] Onset: 3 05-22-2023 Chronic Residual codes; unclassified (20 sources) Daytime somnolence; Translations: [Other hypersomnia] Onset: 6 01-01-2016 Chronic Unclassified (1 source) Chronic atrial fibrillation, unspecified; Translations: [Chronic atrial fibrillation (HCC)] Onset: 3 Past or Other Problems Problem Classification Problem Date Documented Da te Episodic/Chronic Abdominal pain (5 sources) Left upper quadrant pain; Translations: [Left upper quadrant pain] Onset: 07-09-2023 07-09-2023 Episodic Acute posthemorrhagic anemia (20 sources) Acute posthemorrhagic anemia; Translations: [Acute posthemorrhagic anemia] Onset: 07-02-2016 07-02-2016 Episodic Bacterial infection; unspecified site (20 sources) Bacterial infection due to Pseudomonas; Translations: [Other bacterial infections of unspecified site] Onset: 01-01-2017 01-01-2017 Episodic Complications of surgical procedures or medical care (20 sources) Postoperative ileus; Translations: [Other postprocedural complications and disorders of digestive system] Onset: 07-06-2016 07-06-2016 Episodic Deficiency and other anemia (15 sources) Anemia; Translations: [Other specified anemias] Onset: 02-12-2023 Episodic Deficiency and other anemia (1 source) Other specified anemias; Translations: [Anemia due to other cause, not classified] Onset: 02-12-2023 Episodic Fracture of upper limb (20 sources) Closed fracture of head of radius; Translations: [Displaced fracture of head of unspecified radius, initial encounter for closed fracture] Onset: 04-18-2014 04-18-2014 Episodic Inflammation; infection of eye (except that caused by tuberculosis or sexually transmitteddisease) (20 sources) Allergic conjunctivitis; Translations: [Acute atopic conjunctivitis, unspecified eye] Onset: 01-01-2016 01-01-2016 Episodic Nausea and vomiting (3 sources) Nausea; Translations: [Nausea] Onset: 05-07-2023 07-09-2023 Episodic Other aftercare (20 sources) Patient encounter status; Translations: [Encounter for therapeutic drug level monitoring] Onset: 07-09-2016 07-09-2016 Episodic Other gastrointestinal disorders (15 sources) Dysphagia; Translations: [Other dysphagia] Onset: 02-12-2023 Episodic Other gastrointestinal disorders (2 sources) Bariatric surgery status; Translations: [History of gastric bypass] Onset: 02-18-2022 Episodic Other gastrointestinal disorders (2 sources) Other dysphagia; Translations: [Other dysphagia] Onset: 02-11-2023 Episodic Other gastrointestinal disorders (1 source) Heartburn; Translations: [Heartburn] Onset: 01-08-2023 Episodic Other lower respiratory disease (20 sources) Nodule of lung; Translations: [Solitary pulmonary nodule] Onset: 07-19-2010 10-22-2021 Episodic Other lower respiratory disease (20 sources) Chronic cough; Translations: [Chronic cough] Onset: 01-13-2014 01-13-2014 Episodic Other nervous system disorders (20 sources) Acute abdominal pain; Translations: [Other acute postprocedural pain] Onset: 07-02-2016 07-02-2016 Episodic Other skin disorders (1 source) Rash and other nonspecific skin eruption; Translations: [Skin rash] Onset: 05-07-2023 Episodic Other upper respiratory disease (20 sources) Dysphonia; Translations: [Dysphonia] Onset: 02-03-2013 02-03-2013 Episodic Peritonitis and intestinal abscess (20 sources) Abscess of peritoneum; Translations: [Peritoneal abscess] Onset: 02-10-2022 02-18-2022 Episodic Spondylosis; intervertebral disc disorders; other back problems (20 sources) Thoracic and lumbosacral neuritis; Translations: [Thoracic or lumbosacral neuritis or radiculitis, unspecified] Onset: 05-12-2009 05-12-2009 Episodic Results Test Name Value Interpretation Reference Range Facil ity Vital Signs Date Time Vital Sign Value Performing Clinician Faci lity 12-19-2023 11:19-0500 Diastolic blood pressure 96 mm[Hg] NA Edyta HASKINS Work Phone: [facility] 12-19-2023 11:19-0500 Heart rate 60 /min ANUSHA Lan MD Work Phone: [facility] 12-19-2023 11:19-0500 Respiratory rate 16 /min ANUSHA Lan MD Work Phone: [facility] 12-19-2023 11:19-0500 SaO2% (BldA) [Mass fraction] 100 % ANUSHA Lan MD Work Phone: [facility] 12-19-2023 11:19-0500 Systolic blood pressure 155 mm[Hg] ANUSHA Lan MD Work Phone: [facility] 12-19-2023 11:04-0500 Body temperature 97.2 [degF] ANUSHA Lan MD Work Phone: [facility] 12-18-2023 10:39-0500 Body height 152.4 cm Pst 1 [facility] 12-18-2023 10:39-0500 Body temperature 98.2 [degF] [facility] 12-18-2023 10:39-0500 Body weight 50.35 kg Pst 1 [facility] 12-18-2023 10:39-0500 Diastolic blood pressure 86 mm[Hg] Pst 1 [facility] 12-18-2023 10:39-0500 Heart rate 71 /min Pst 1 [facility] 12-18-2023 10:39-0500 Respiratory rate 16 /min Pst 1 [facility] 12-18-2023 10:39-0500 SaO2% (BldA) [Mass fraction] 96 % Pst 1 [facility] 12-18-2023 10:39-0500 Systolic blood pressure 136 mm[Hg] Pst 1 [facility] 09-15-2023 09:21-0500 Body height 149.9 cm ANUSHA Lan MD Work Phone: [facility] 09-15-2023 09:21-0500 Body weight 47.63 kg ANUSHA Lan MD Work Phone: [facility] 09-15-2023 09:21-0500 Diastolic blood pressure 87 mm[Hg] ANUSHA Lan MD Work Phone: [facility] 09-15-2023 09:21-0500 Heart rate 65 /min ANUSHA Lan MD Work Phone: [facility] 09-15-2023 09:21-0500 Systolic blood pressure 150 mm[Hg] ANUSHA Lan MD Work Phone: [facility] 07-30-2023 14:07-0400 Body height 147.3 cm Parisa Coleman MD Work Phone: [facility] 07-30-2023 14:07-0400 Body weight 47.81 kg Parisa Coleman MD Work Phone: [facility] 07-30-2023 14:07-0400 Diastolic blood pressure 84 mm[Hg] Parisa Coleman MD Work Phone: [facility] 07-30-2023 14:07-0400 Heart rate 74 /min Parisa Coleman MD Work Phone: [facility] 07-30-2023 14:07-0400 Systolic blood pressure 129 mm[Hg] Parisa Coleman MD Work Phone: [facility] 07-09-2023 10:03-0400 Body height 147.3 cm Parisa Coleman MD Work Phone: [facility] 07-09-2023 10:03-0400 Body weight 45.9 kg Parisa Coleman MD Work Phone: [facility] 07-09-2023 10:03-0400 Diastolic blood pressure 95 mm[Hg] Parisa Coleman MD Work Phone: [facility] 07-09-2023 10:03-0400 Heart rate 66 /min Parisa Coleman MD Work Phone: [facility] 07-09-2023 10:03-0400 Systolic blood pressure 167 mm[Hg] Parisa Coleman MD Work Phone: [facility] 05-22-2023 14:57-0400 Diastolic blood pressure 93 mm[Hg] Parisa Coleman MD Work Phone: [facility] 05-22-2023 14:57-0400 Heart rate 53 /min Parisa Coleman MD Work Phone: [facility] 05-22-2023 14:57-0400 Respiratory rate 14 /min Parisa Coleman MD Work Phone: [facility] 05-22-2023 14:57-0400 SaO2% (BldA) [Mass fraction] 100 % Parisa Coleman MD Work Phone: [facility] 05-22-2023 14:57-0400 Systolic blood pressure 169 mm[Hg] Parisa Coleman MD Work Phone: [facility] 05-22-2023 14:40-0400 Body temperature 97.2 [degF] Parisa Coleman MD Work Phone: [facility] 05-22-2023 13:34-0400 Body height 147.3 cm Parisa Coleman MD Work Phone: [facility] 05-22-2023 13:34-0400 Body weight 47.63 kg Parisa Coleman MD Work Phone: [facility] 04-20-2023 13:53-0400 Diastolic blood pressure 82 mm[Hg] Parisa Coleman MD Work Phone: [facility] 02-13-2023 13:53-0400 Systolic blood pressure 179 mm[Hg] Parisa Coleman MD Work Phone: [facility] 02-13-2023 13:47-0400 Heart rate 54 /min Parisa Coleman MD Work Phone: [facility] 02-13-2023 13:47-0400 Respiratory rate 17 /min Parisa Coleman MD Work Phone: [facility] 02-13-2023 13:47-0400 SaO2% (BldA) [Mass fraction] 98 % Parisa Coleman MD Work Phone: [facility] 02-13-2023 13:32-0400 Body temperature 97 [degF] Parisa Coleman MD Work Phone: [facility] 02-13-2023 11:42-0400 Body height 149.9 cm Parisa Coleman MD Work Phone: [facility] 02-13-2023 11:42-0400 Body weight 50.8 kg Parisa Coleman MD Work Phone: [facility] 01-08-2023 14:53-0400 Body height 147.3 cm Parisa Coleman MD Work Phone: [facility] 01-08-2023 14:53-0400 Body weight 50.44 kg Parisa Coleman MD Work Phone: [facility] 01-08-2023 14:53-0400 Diastolic blood pressure 76 mm[Hg] Parisa Coleman MD Work Phone: [facility] 01-08-2023 14:53-0400 Heart rate 66 /min Parisa Coleman MD Work Phone: [facility] 01-08-2023 14:53-0400 Systolic blood pressure 120 mm[Hg] Parisa Coleman MD Work Phone: [facility] 05-08-2022 09:22-0400 Body height 152.[address] Work Phone: [facility] 05-08-2022 09:22-0400 Body weight 46.[address] Work Phone: [facility] 05-03-2022 09:01-0400 Body height 152.4 cm Parisa Coleman MD Work Phone: [facility] 05-03-2022 09:01-0400 Body weight 46.9 kg Parisa Coleman MD Work Phone: [facility] 05-03-2022 09:01-0400 Diastolic blood pressure 87 mm[Hg] Parisa Coleman MD Work Phone: [facility] 05-03-2022 09:01-0400 Heart rate 62 /min Parisa Coleman MD Work Phone: [facility] 05-03-2022 09:01-0400 Systolic blood pressure 161 mm[Hg] Parisa Coleman MD Work Phone: [facility] Encounters Encounter Date Encounter Type Care Provider Facility Start: 01-06-2024 Orders Only H Wood cisse MD Work Phone: [facility] Procedures Date Procedure Procedure Detail Performing Clinician Start: 12-19-2023 Ecg routine ecg w/le ast 12 lds trcg only w/o i&r [facility] Provider Start: 12-18-2023 Antibody screen PARISA COLEMAN Plan of Treatment Date Care Activity Detail Author Start: 12-31-2026 Diabetes Screening Diabetes Screenin g [facility] Start: 12-18-2026 Diabetes Screening Diabetes Screenin g [facility] Start: 05-03-2025 DIABETES SCREEN DIABETES SCREEN [facility] Start: 05-03-2025 Diabetes Screening Diabetes Screenin g [facility] Start: 02-18-2025 DIABETES SCREEN DIABETES SCREEN [facility] Start: 01-09-2024 BP CONTROLLED (<130/80) BP CONTROLLE D (<130/80) [facility] Start: 10-27-2023 Advance Directive Discussion Advance Directive Discussion [facility] Start: 10-27-2023 Depression Assessment Depression Ass essment [facility] Start: 07-09-2023 End: 09-08-2023 CREATININE BLD CREATININE BLD Lab Routine Left upper quadrant abdominal pain Expected: 07/09/2023, Expires: 09/08/2023 [facility] Work Phone: Immunizations Immunization Date Immunization Notes Care Provider Lobo porter 06-14-2021 influenza, injectabl e, quadrivalent, contains preservative Roxy Cowan RD Work Phone: [facility] 06-14-2021 influenza virus vacc ine, unspecified formulation Parisa Coleman MD Work Phone: [facility] 01-22-2021 COVID-19 vaccine, fu ll dose (MODERNA) Roxy Cowan RD Work Phone: [facility] 08-01-2020 influenza, high-dose , quadrivalent vaccine (FLUZONE HIGH DOSE QUADRIVALENT) Roxy Cowan RD Work Phone: [facility] 05-31-2020 zoster vaccine recombinant Roxy Cowan RD Work Phone: [facility] 03-11-2020 zoster vaccine recombinant Roxy Cowan RD Work Phone: [facility] 06-14-2019 influenza, injectabl e, quadrivalent, contains preservative Roxy Cowan RD Work Phone: [facility] 09-13-2018 pneumococcal conjuga te vaccine, [address] Work Phone: [facility] 09-02-2018 influenza, high dose seasonal, preservative-free Roxy Cowan RD Work Phone: [facility] 07-02-2017 influenza, injectabl e, quadrivalent, contains preservative Roxy Cowan RD Work Phone: [facility] 07-18-2016 influenza, seasonal, injectable Roxy Cowan RD Work Phone: [facility] 07-10-2016 influenza, high dose seasonal, preservative-free Yoko Delaney LPN Work Phone: [facility] 10-05-2015 zoster vaccine, live Micheli na Whoolery PEGGER Work Phone: [facility] 07-11-2015 pneumococcal conjuga te vaccine, 13 valent Yoko Whoolery PEGGER Work Phone: [facility] 12-23-2014 influenza, seasonal, injectable, preservative free Roxy Bechter RD Work Phone: [facility] 08-27-2013 influenza, seasonal, injectable, preservative free Roxy Bechter RD Work Phone: [facility] 08-25-2013 influenza virus vacc ine, unspecified formulation Yoko Whoolery PEGGER Work Phone: [facility] 10-27-2011 pneumococcal polysaccharide vaccine, [address] Work Phone: [facility] 10-27-2011 pneumococcal vaccine , unspecified formulation Parisa Coleman MD Work Phone: [facility] 08-08-2011 influenza virus vacc ine, unspecified formulation Yoko Whoolery PEGGER Work Phone: [facility] 08-21-2010 influenza virus vacc ine, unspecified formulation Yoko Whoolery PEGGER Work Phone: [facility] 09-26-2009 pneumococcal polysaccharide vaccine, 23 valent Yoko Whoolery PEGGER Work Phone: [facility] Work Phone: 09-07-2009 influenza virus vacc ine, unspecified formulation Yoko Whoolery PEGGER Work Phone: [facility] Work Phone: Payers Date Payer Category P[place] [id number] 2022-Present [phone] [address] [place] [address] Medicaid [id number] 2022 [place] [id number] 2022-Present [phone] [address] [place] [address] Medicaid [id number] 2022 Medicaid [id number] 2021 Medicare [facility] MEDICARE [employer] DUAL COMPLETE HMO SNP [id number] 2021-Present [phone] [address] [place] [address] Medicare [id number] 2021 Medicare [id number] 2021 Unknown [id number] Social History Date Type Detail Facility Start: 01-08-2013 End: 07-09-2023 Tobacco smoking status NHIS Ex-smoker [facility] Work Phone: End: 10-27-1965 History of tobacco use Current smoker [facility] Work Phone: End: [birth year]27-1966 History of tobacco use Cigarette Smoker [facility] Work Phone: Start: 11-18-2017 End: 12-25-2023 Alcohol intake Current non-drinker of alcohol (finding) [facility] Start: 01-08-2013 End: 07-09-2023 Tobacco Comment Few cigarettes daily, < 4 years. TO [facility] Start: 1945 Sex Assigned At Not on file C [facility] Start: 01-30-2022 End: 05-03-2022 Exposure to SARS-CoV-2 (event) Not sure [facility] Start: 01-08-2013 End: 05-07-2023 Cigarettes smoked current (pack per day) - Reported 0.3 [facility] Start: 01-08-2013 End: 07-09-2023 Tobacco use and exposure Smokeless tobacco non-user [facility] Work Phone: Start: 05-07-2023 End: 12-26-2023 Tobacco use panel [facility] National Score (1-10 0), lower number is lower risk 65 [facility] Has the [employer], or [employer] threatened to shut off services in your home in past 12Mo No [facility] (I/We) worried wheth er (my/our) food would run out before (I/we) got money to buy more. Never true [facility] Medical Equipment Procedure Code Equipment Code Equipment Origin al Text Equipment Identifier Dates Graft [place] Bio-A 15x9cm Synthetic Tissue Bioabsorbable Scaffold - [id number] Start: 07-05-2016 Clinical Notes 02-10-2022 to 01-05-2024 Telephone Encounter - Taryn Bai - 01/05/2024 1:58 PM Katerin Mcallister MD - 12/19/2023 10:00 AM ESTBrief Op Note - Ktaerin Lan MD - 12/19/2023 10:00 AM ESTPatient Instructions Note Date & Type Note Facility 01-05-2024 Miscellaneous Notes PATIENT INFORMATION Record ID: [id number] Patient Name: [facility] Hospital: [facility] [place]: [facility] Attending: Katerin Lan Center: General Surgery [facility] INSTRUCTIONS All Clear SN to remind patient of next upcoming appointment date, time, location All Clear All Clear All Clear SURVEY INFORMATION Medical/Nurse Rubberizing Mechanic: Taryn Bai 1. Your discharge instructions are important in guiding you through the recovery process. Is there anything I could help you clarify on your discharge instructions? (Standard Question) No 2. Do you have your follow up appointment related to your hospital stay scheduled within the next 30 days? (Standard Question) Yes 3. Do you have all the necessary equipment and supplies at home? (Standard Question) Yes 4. Many patients have concerns about their medications once they are home. Do you have any questions about getting or taking your medications? (Standard Question) No 5. Do you have any new or different symptoms? (Standard Question) No documented in this encounter [facility] 01-01-2024 Note HNO ID: [id number] Author: LILIA STEVENSON APRN.MOVING WORKER Service: General Surgery Author Type: Nurse Practitioner Type: Progress Notes Filed: 01/02/2024 08:59 Note Text: ---- Summary: [facility] DC Note ---- Discharge Geriatric Vulnerability Screens Surgeon: Surgeon(s) and Role: * Katerin Lan MD - Primary * Ana Kwan DO - Resident - Assisting Procedure Performed: Procedure(s): HERNIORRHAPHY VENTRAL ADULT INITIAL REDUCIBLE GREATER THAN 10cm IMPLANT MESH INCISIONAL HERNIA REPAIR INITIAL GREATER THAN 10 cm (N/A) CLOSURE COLOSTOMY LITHOTOMY ADULT (N/A) CHOLECYSTECTOMY OPEN (N/A) SIGMOIDOSCOPY FLEXIBLE (N/A) Impaired Cognition at Discharge: No Delirious at Discharge:No Impaired Functional Status at Discharge: No, Independent Impaired Mobility at Discharge:No Malnutrition at Discharge:Yes Discharge Recommendations: Diet;Oral Supplements Diet: GI Soft or as per primary Oral Supplements: Energy dense oral nutrition supplements BID as needed to maintain adequate intakes Geriatric Vulnerability Management Plan: DC home with self care Geriatric vulnerability screens were reviewed by Lilia Stevenson APRN.CNP and results were communicated to surgeon/surgical team who devised the above plan. The plan was communicated to the patient and family/caregivers: Via nursing dc instructions Patient/Caregivers were given educational material on delirium, falls, and mobility. Patient's primary doctor: Garret Coy MD This plan was communicated to the patient's primary doctor: Through Electronic Health Record (EHR) messaging Disposition: Patient to be discharged home alone/with family [facility] 01-01-2024 Note HNO ID: [id number] Author: ANDREW KIDD [facility] Service: Pharmacy Author Type: Pharmacist Type: Progress Notes Filed: 01/02/2024 13:21 Note Text: HPI: pt is 78 yo female who was admitted to the hospital on 12/25/23 for ventral hernia without obstruction or gangrene. Pt has a PMHx of atrial fibrillation w/ RVR (Eliquis), HTN, GERD, CAD, COPD, depression, hiatal hernia, HLD, s/p RNY (2016), Estelle 2/2 sigmoid diverticulitis (2016), parastomal hernia repair w/ mesh who is s/p Ventral Hernia Repair with Onlay Mesh, Colostomy reversal, colonoscopy with leak test, Cholecystectomy on . Beer's Criteria Medication List: Pantoprazole - risk of c. Difficile infection, pneumonia, GI malignancies, bone loss, and fractures. Avoid scheduled dose for >8 weeks unless high risk (chronic NSAID/oral corticosteroid use) Tramadol - increased risk of FISH HATCHERY ASSISTANT depression. Monitor patients pain level and for respiratory depression and sedation. Promethazine: monitor for anticholinergic side effects such as blurred vision, dry mouth, urinary retention, constipation, sedation and altered mental status. Drug-drug Interactions: Promethazine - Tramadol: FISH HATCHERY ASSISTANT Depressants may enhance the FISH HATCHERY ASSISTANT depressant effect of Opioid Agonists. Apixaban - Enoxaprin: Apixaban may enhance the anticoagulant effect of Anticoagulants which may lead to increased chance of bleeding. Medications for this elderly patient were reviewed according to the revised Beers Criteria. [facility] 01-01-2024 Note HNO ID: [id number] Author: Katerin LAN MD Service: General Surgery Author Type: Resident Type: Progress Notes Filed: 01/01/2024 11:05 Note Text: ---- Attestation signed by Katerin Lan MD at 01/01/2024 11:05 AM I saw and evaluated the patient. Discussed with the resident and agree with resident's findings and plan as documented in the resident's note. No changes today C/o abd pain- controlled Overall doing fairly well Tolerating diet Passing flatus but no BM Incision is healing well WBC 6.99 HGB 10.3 Ca 11.5 A/P S/p closure of colostomy, repair large ventral hernia with mesh and walter on 12-25-23 Cont current Rx Awaiting BM before discharge Hypercalcemia- cause not clear H Wood Lan MD ---- Elective General Surgery (Green Surgery) Progress Note SERVICE DATE: January 01, 2024 Elective General Surgery (Green Surgery) Service Pager: For questions or concerns Mon-Fri 6a-5p please page [phone]. After 5pm and on Weekends and Holidays, please page [phone]. SUBJECTIVE: NAEON. Pt is POD7 from VHR, Colostomy Reversal, and Cholecystectomy. Pt continues to state that she is tolerating her GI soft diet without issue. She has been ambulating and states her pain is improving, it is well controlled on her current medications. She continues to endorse flatus, but states she has not had a bowel movement. Pt is amenable to an enema. Tolerating diet DIET GASTRO INTESTINAL OBJECTIVE: Vitals: Temp (24hrs), Av.8 ?C (98.3 ?F), Min:36.4 ?C (97.5 ?F), Max:37.2 ?C (98.9 ?F) BP 138/84 Pulse 67 Temp 36.4 ?C (97.5 ?F) (Oral) Resp 18 Ht 149.9 cm (4' 11 ) Wt 52.6 kg (115 lb 15.4 oz) SpO2 95% BMI 23.42 kg/m? O2 Therapy: Room Air IANDO: Date 12/31/23 07 - 01/01/24 0659 01/01/24 07 - 01/02/24 0659 Shift 2626-5534 1880-2148 2175-2006 24 Hour Total 5649-3764 3126-8462 2147-7964 24 Hour Total INTAKE Shift Total OUTPUT Urine 350 200 550 Void (ml) 350 200 550 Shift Total 350 200 550 Weight (kg) 52.6 52.6 52.6 52.6 52.6 52.6 52.6 52.6 MEDICATIONS: Current Facility-Administered Medications Medication Dose Route Frequency polyethylene glycol 3350 17 g packet 17 g ORAL DAILY apixaban 5 mg tab(s) (ELIQUIS) 5 mg ORAL BID senna-docusate 8.6-50 mg 1 tablet (SENNA-S) 1 tablet ORAL BID albuterol 2.5 mg /3 mL (0.083 %) 2.5 mg (PROVENTIL) 2.5 mg OTHER q 4 H PRN albuterol HFA 90 mcg/actuation 2 Puff (PROVENTIL HFA, VENTOLIN HFA) 2 Puff INHALATION q [address] 40 mg tab(s) (PROTONIX) 40 mg ORAL DAILY (6 AM) magnesium oxide 400 mg tab(s) (MAG-OX) 400 mg ORAL DAILY ondansetron (PF) 4 mg injection (ZOFRAN) 4 mg INTRAVENOUS q 4 H PRN acetaminophen 975 mg tab(s) (TYLENOL) 975 mg ORAL q 6 H traMADol 50-100 mg tab(s) (ULTRAM) 50-100 mg ORAL q 6 H PRN enoxaparin 40 mg injection (LOVENOX) 40 mg SUBCUTANEOUS DAILY NaCl 0.9% iv flush bag 20 mL INTRAVENOUS PRN mometasone-formoterol 100-5 mcg/actuation 2 Puff inhaler (DULERA) 2 Puff INHALATION BID Labs: Recent Labs 01/01/24 0009 12/31/23 0547 NA 137 134* K 4.3 4.7 CHLOR 103 103 CO2 28 23 BUN 11 9 CREAT 0.67 0.58 GLUC 105* 129* ANION 6* 8* CA 11.5* 12.2* WBC 6.99 8.72 HB 10.3* 12.7 HCT 32.1* 38.7 PLT 301 329 Physical Exam: GENERAL: resting comfortably, in no acute distress HEENT: normocephalic, atraumatic, EOMI NECK: trachea midline, no JVD LUNGS: Unlabored breathing, equal chest rise bilaterally CARDIAC: Regular rate, warm extremities, good perfusion throughout ABDOMEN: Soft, appropriate post-operative tenderness, non-distended. No rebound or guarding, midline wound closed with jani, no erythema or edema, previous colostomy site closed with jani, c/d/i, Laura removed, sites c/d/i no erythema or edema. EXTREMITIES: ANGELO, No deformities, No edema SKIN: Skin color, texture, turgor normal, No rashes or lesions NEURO: AANDOx3, CN II-XII grossly intact PSYCH: normal mood and affect ASSESSMENT AND PLAN: Assessment Active Hospital Problems Diagnosis Date Noted Ventral hernia without obstruction or gangrene 12/25/2023 Assessment: 78 year old female with PMHx of atrial fibrillation w/ RVR (Eliquis), HTN, GERD, CAD, COPD, depression, hiatal hernia, HLD, s/p RNY (2015), Estelle 2/2 sigmoid diverticulitis (2015), parastomal hernia repair w/ mesh who is s/p Ventral Hernia Repair with Onlay Mesh, Colostomy reversal, colonoscopy with leak test, Cholecystectomy on . Hospital Course/Operations/Procedures: 12/25/2023 Procedure(s): HERNIORRHAPHY VENTRAL ADULT INITIAL REDUCIBLE GREATER THAN 10cm CLOSURE COLOSTOMY LITHOTOMY ADULT CHOLECYSTECTOMY OPEN Plan: S/P Ventral Hernia Repair with Onlay Mesh, Colostomy Reversal, Cholecystectomy - Pt is POD7 pain improving per Pt - Pt is tolerating GI soft diet without N (more content not included)... [facility] 12-31-2023 Note HNO ID: [id number] Author: SHABANA SANTIZO RN Service: Care Management Author Type: Registered Nurse Type: Care Mgt Progress Note Filed: 12/31/2023 14:24 Note Text: CARE MANAGEMENT PROGRESS NOTE SERVICE DATE: 12/31/2023 SERVICE TIME: 2:22 PM LOS: 6 days Needs Prior to Discharge: To Be Determined Per chart patient dc is pending patient having a bowel movement. Patient does not have any skilled needs at dc and her family can transport her home at dc. CM did assist patient with ordering some grab bars for her bed that should be delivered to her home this week. CM will continue to follow. SIGNATURE: Shabana Santizo RN PATIENT NAME: Breanne Diehl DATE: December 31, 2023 TIME: 2:22 PM PAGER/CONTACT #: [phone] [facility] 12-31-2023 Note HNO ID: [id number] Author: Katerin LAN MD Service: NST-Nutrition Support Team Author Type: Physician Type: Progress Notes Filed: 12/31/2023 13:22 Note Text: Documentation Query Based on your medical judgment of the clinical indicators outlined below, please clarify the condition: (Please type X next to your response and sign) Date Reported: 12/26/23 Final Diagnosis: A. Hernia sac, herniorrhaphy: - Skin/soft tissue with focal chronic inflammation, acanthosis and focal features of scar. B. Colostomy and rectal stump, closure: - Colonic tissues with reactive fibrosis, chronic inflammation, and reactive-appearing lymph nodes. - Benign mucosal rings. C. Gallbladder, cholecystectomy: - Mild chronic cholecystitis. Please clarify the significance of the pathology report of the Mild chronic cholecystitis. XX I agree with the above pathology report The above pathology report is not clinically significant The above pathology report is indeterminate Other, please specify [facility] 12-31-2023 Note HNO ID: [id number] Author: Katerin LAN MD Service: General Surgery Author Type: Resident Type: Progress Notes Filed: 12/31/2023 13:21 Note Text: ---- Attestation signed by Katerin Lan MD at 12/31/2023 1:21 PM I saw and evaluated the patient. Discussed with the resident and agree with resident's findings and plan as documented in the resident's note. No changes today C/o abd pain- controlled Overall doing fairly well Tolerating diet Passing flatus but no BM Incision is healing well WBC 8.7 HGB 12.7 A/P S/p closure of colostomy, repair large ventral hernia with mesh and walter on 12-25-23 Cont current Rx Awaiting BM before discharge H Wood Lan MD ---- Elective General Surgery (Green Surgery) Progress Note SERVICE DATE: December 31, 2023 Elective General Surgery (Green Surgery) Service Pager: For questions or concerns Mon-Fri 6a-5p please page [phone]. After 5pm and on Weekends and Holidays, please page [phone]. SUBJECTIVE: NAEON. Pt is POD6 from VHR, Colostomy Reversal, and Cholecystectomy. Pt states that she has been tolerating her diet, although she is not eating much due to her not being very interested in the food. She has been walking the halls with moderate pain that is well controlled with her pain medications. She states she has continued to pass flatus but denies any bowel movements. Otherwise she has no current complaints. Tolerating diet DIET GASTRO INTESTINAL OBJECTIVE: Vitals: Temp (24hrs), Av.9 ?C (98.4 ?F), Min:36.7 ?C (98.1 ?F), Max:37.1 ?C (98.7 ?F) BP 161/94 Pulse 87 Temp 36.7 ?C (98.1 ?F) (Oral) Resp 16 Ht 149.9 cm (4' 11 ) Wt 52.6 kg (115 lb 15.4 oz) SpO2 93% BMI 23.42 kg/m? O2 Therapy: Room Air IANDO: Date 12/30/23699 - 12/31/23 0612/31/23699 - 01/01/24 0659 Shift 9392-4365 6888-8517 0456-1230 24 Hour Total 8203-9761 9383-8440 6882-7648 24 Hour Total INTAKE PO 420 180 600 PO 360 180 540 Supplements (mL) 60 60 Shift Total 420 180 600 OUTPUT Urine 626 033 8563 Void (ml) 696 408 5460 Shift Total 236 721 9404 Weight (kg) 52.6 52.6 52.6 52.6 52.6 52.6 52.6 52.6 MEDICATIONS: Current Facility-Administered Medications Medication Dose Route Frequency apixaban 5 mg tab(s) (ELIQUIS) 5 mg ORAL BID senna-docusate 8.6-50 mg 1 tablet (SENNA-S) 1 tablet ORAL BID albuterol 2.5 mg /3 mL (0.083 %) 2.5 mg (PROVENTIL) 2.5 mg OTHER q 4 H PRN albuterol HFA 90 mcg/actuation 2 Puff (PROVENTIL HFA, VENTOLIN HFA) 2 Puff INHALATION q [address] 40 mg tab(s) (PROTONIX) 40 mg ORAL DAILY (6 AM) magnesium oxide 400 mg tab(s) (MAG-OX) 400 mg ORAL DAILY ondansetron (PF) 4 mg injection (ZOFRAN) 4 mg INTRAVENOUS q 4 H PRN acetaminophen 975 mg tab(s) (TYLENOL) 975 mg ORAL q 6 H traMADol 50-100 mg tab(s) (ULTRAM) 50-100 mg ORAL q 6 H PRN enoxaparin 40 mg injection (LOVENOX) 40 mg SUBCUTANEOUS DAILY NaCl 0.9% iv flush bag 20 mL INTRAVENOUS PRN mometasone-formoterol 100-5 mcg/actuation 2 Puff inhaler (DULERA) 2 Puff INHALATION BID Labs: Recent Labs 12/31/23 0547 12/30/23 0527 NA 134* 135* K 4.7 4.2 CHLOR 103 103 CO2 23 23 BUN 9 8 CREAT 0.58 0.59 GLUC 129* 115* ANION 8* 9 CA 12.2* 11.7* WBC 8.72 8.86 HB 12.7 13.3 HCT 38.7 39.9 PLT 329 326 Physical Exam: GENERAL: resting comfortably, in no acute distress HEENT: normocephalic, atraumatic, EOMI NECK: trachea midline, no JVD LUNGS: Unlabored breathing, equal chest rise bilaterally CARDIAC: Regular rate, warm extremities, good perfusion throughout ABDOMEN: Soft, appropriate post-operative tenderness, non-distended. No rebound or guarding, midline wound closed with jani, no erythema or edema, previous colostomy site closed with jani, c/d/i, Laura removed, sites c/d/i no erythema or edema. EXTREMITIES: ANGELO, No deformities, No edema SKIN: Skin color, texture, turgor normal, No rashes or lesions NEURO: AANDOx3, CN II-XII grossly intact PSYCH: normal mood and affect ASSESSMENT AND PLAN: Assessment Active Hospital Problems Diagnosis Date Noted Ventral hernia without obstruction or gangrene 12/25/2023 Assessment: 78 year old female with PMHx of atrial fibrillation w/ RVR (Eliquis), HTN, GERD, CAD, COPD, depression, hiatal hernia, HLD, s/p RNY (2015), Estelle 2/2 sigmoid diverticulitis (2016), parastomal hernia repair w/ mesh who is s/p Ventral Hernia Repair with Onlay Mesh, Colostomy reversal, colonoscopy with leak test, Cholecystectomy on . Hospital Course/Operations/Procedures: 12/25/2023 Procedure(s): HERNIORRHAPHY VENTRAL ADULT INITIAL REDUCIBLE GREATER THAN 10cm CLOSURE COLOSTOMY LITHOTOMY ADULT CHOLECYSTECTOMY OPEN Plan: S/P Ventral Hernia Repair with Onlay Mesh, Colostomy Reversal, Cholecystectomy - Pt is POD6 pain moderately well controlled (more content not included)... [facility] 12-30-2023 Note HNO ID: [id number] Author: Katerin LAN MD Service: General Surgery Author Type: Resident Type: Progress Notes Filed: 12/30/2023 13:38 Note Text: ---- Attestation signed by Katerin Lan MD at 12/30/2023 1:38 PM I saw and evaluated the patient. Discussed with the resident and agree with resident's findings and plan as documented in the resident's note. C/o abd pain Overall doing fairly well Tolerating diet Passing flatus but no BM Incision is healing well WBC 8.8 HGB 13.3 A/P S/p closure of colostomy, repair large ventral hernia with mesh and walter on 12-25-23 Cont current Rx Awaiting BM before discharge H Wood Lan MD ---- Elective General Surgery (Green Surgery) Progress Note SERVICE DATE: December 30, 2023 Elective General Surgery (Green Surgery) Service Pager: For questions or concerns Mon-Fri 6a-5p please page [phone]. After 5pm and on Weekends and Holidays, please page [phone]. SUBJECTIVE: NAEON. Pt is POD5 from VHR, Colostomy Reversal, and Cholecystectomy. Pt continues to tolerate her diet appropriately. She denies any N/V. She continues to endorse flatus, but states she has not had a bowel movement. She had her LAURA drain removed yesterday Tolerating diet DIET GASTRO INTESTINAL OBJECTIVE: Vitals: Temp (24hrs), Av ?C (98.6 ?F), Min:36.8 ?C (98.3 ?F), Max:37.1 ?C (98.7 ?F) BP 131/79 Pulse (!) 48 Temp 36.8 ?C (98.3 ?F) (Oral) Resp 19 Ht 149.9 cm (4' 11 ) Wt 52.6 kg (115 lb 15.4 oz) SpO2 94% BMI 23.42 kg/m? O2 Therapy: Room Air IANDO: Date 12/29/23699 - 12/30/2365812/30/23699 - 12/31/23 0659 Shift 6106-3850 7871-0074 3439-7270 24 Hour Total 7281-0732 7568-2519 8059-1727 24 Hour Total INTAKE PO 600 240 840 PO 600 240 840 Shift Total 600 240 840 OUTPUT Urine 638 819 8548 Void (ml) 289 046 1489 Urine Not Saved. 1 x 1 x 2 x Shift Total 099 895 3086 Weight (kg) 52.6 52.6 52.6 52.6 52.6 52.6 52.6 52.6 MEDICATIONS: Current Facility-Administered Medications Medication Dose Route Frequency albuterol 2.5 mg /3 mL (0.083 %) 2.5 mg (PROVENTIL) 2.5 mg OTHER q 4 H PRN albuterol HFA 90 mcg/actuation 2 Puff (PROVENTIL HFA, VENTOLIN HFA) 2 Puff INHALATION q [address] 40 mg tab(s) (PROTONIX) 40 mg ORAL DAILY (6 AM) magnesium oxide 400 mg tab(s) (MAG-OX) 400 mg ORAL DAILY ondansetron (PF) 4 mg injection (ZOFRAN) 4 mg INTRAVENOUS q 4 H PRN acetaminophen 975 mg tab(s) (TYLENOL) 975 mg ORAL q 6 H traMADol 50-100 mg tab(s) (ULTRAM) 50-100 mg ORAL q 6 H PRN enoxaparin 40 mg injection (LOVENOX) 40 mg SUBCUTANEOUS DAILY NaCl 0.9% iv flush bag 20 mL INTRAVENOUS PRN mometasone-formoterol 100-5 mcg/actuation 2 Puff inhaler (DULERA) 2 Puff INHALATION BID Labs: Recent Labs 12/30/23 0527 12/29/23 0411 NA 135* 138 K 4.2 4.4 CHLOR 103 106* CO2 23 23 BUN 8 5* CREAT 0.59 0.55* GLUC 115* 126* ANION 9 9 CA 11.7* 11.5* WBC 8.86 9.76 HB 13.3 12.9 HCT 39.9 39.3 PLT 326 295 Physical Exam: GENERAL: resting comfortably, in no acute distress HEENT: normocephalic, atraumatic, EOMI NECK: trachea midline, no JVD LUNGS: Unlabored breathing, equal chest rise bilaterally CARDIAC: Regular rate, warm extremities, good perfusion throughout ABDOMEN: Soft, appropriate post-operative tenderness, non-distended. No rebound or guarding, midline wound closed with jani, no erythema or edema, previous colostomy site closed with jani, c/d/i, Laura removed, sites c/d/i no erythema or edema. EXTREMITIES: ANGELO, No deformities, No edema SKIN: Skin color, texture, turgor normal, No rashes or lesions NEURO: AANDOx3, CN II-XII grossly intact PSYCH: normal mood and affect ASSESSMENT AND PLAN: Assessment Active Hospital Problems Diagnosis Date Noted Ventral hernia without obstruction or gangrene 12/25/2023 Assessment: 78 year old female with PMHx of atrial fibrillation w/ RVR (Eliquis), HTN, GERD, CAD, COPD, depression, hiatal hernia, HLD, s/p RNY (2016), Estelle 2/2 sigmoid diverticulitis (2016), parastomal hernia repair w/ mesh who is s/p Ventral Hernia Repair with Onlay Mesh, Colostomy reversal, colonoscopy with leak test, Cholecystectomy on . Hospital Course/Operations/Procedures: 12/25/2023 Procedure(s): HERNIORRHAPHY VENTRAL ADULT INITIAL REDUCIBLE GREATER THAN 10cm CLOSURE COLOSTOMY LITHOTOMY ADULT CHOLECYSTECTOMY OPEN Plan: S/P Ventral Hernia Repair with Onlay Mesh, Colostomy Reversal, Cholecystectomy - Pt is POD5 pain well controlled - Pt is tolerating GI soft diet without issue - Pt continues to endorse passing flatus, states she has not had a bowel movement yet - Pt with appropriate urine output - B/l LAURA drains removed - Multimodal pain control as prescribed - LVX for Dvt proph - PPI - Zofran for N/V - Encouraged IS usage (more content not included)... [facility] 12-29-2023 Note HNO ID: [id number] Author: SHABANA SANTIZO RN Service: Care Management Author Type: Registered Nurse Type: Care Mgt Progress Note Filed: 12/29/2023 13:53 Note Text: CARE MANAGEMENT PROGRESS NOTE SERVICE DATE: 12/29/2023 SERVICE TIME: 1:52 PM LOS: 4 days Needs Prior to Discharge: To Be Determined Per patient chart, team advancing diet. Plan is for patient to de home without any skilled needs. Her family can transport her home at de. CM will continue to follow. SIGNATURE: Shabana Santizo RN PATIENT NAME: Breanne Diehl DATE: December 29, 2023 TIME: 1:52 PM PAGER/CONTACT #: [phone] [facility] 12-29-2023 Note HNO ID: [id number] Author: ANA KWAN DO Service: General Surgery Author Type: Resident Type: Plan of Care Filed: 12/29/2023 12:39 Note Text: LAURA Drain Removal: Dressing removed. Drain suture cut at skin. LAURA drain pulled. Pt tolerated procedure well. While in room discussed code status extensively with Pt. She desires to be full code. Ramifications of this choice discussed with Pt. Aan Kwan DO 12/29/2023 12:38 PM Pager below: Jose De Jesus [facility] General Surgery Service Pager: For questions or concerns Mon-Fri 6a-5p please page [phone]. After 5pm and on Weekends and Holidays, please page [phone], for ICU page [phone] [facility] 12-29-2023 Note HNO ID: [id number] Author: ANA KWAN DO Service: General Surgery Author Type: Resident Type: Progress Notes Filed: 12/29/2023 12:38 Note Text: Documentation Query Based on your medical judgment of the clinical indicators outlined below, please clarify the condition: (Please type X next to your response and sign) Clinical Indicators: 12/26/23 03:08 12/27/23 03:06 12/28/23 03:37 12/29/23 04:11 Potassium 4.0 3.6 3.4 4.4 Treatment: 3/3 Potassium Chloride 20 meq given PO Please clarify the diagnosis associated with the above clinical indicators: X Hypokalemia Other, please specify [facility] 12-29-2023 Note HNO ID: [id number] Author: Katerin LAN MD Service: General Surgery Author Type: Resident Type: Progress Notes Filed: 12/29/2023 18:18 Note Text: ---- Attestation signed by Katerin Lan MD at 12/29/2023 6:18 PM I saw and evaluated the patient. Discussed with the resident and agree with resident's findings and plan as documented in the resident's note. Doing well overall Passing flatus no BM Abd is soft, ND, mild tenderness, midline incision healing well WBC 9.76 HGB 12.9 Ca 11.5 A/P S/p closure of colostomy, repair of large ventral-incisional hernia and walter on 12-25-23 Doing well overall Ok to advance diet H Wood Lan MD ---- Elective General Surgery (Green Surgery) Progress Note SERVICE DATE: December 29, 2023 Elective General Surgery (Green Surgery) Service Pager: For questions or concerns Mon-Fri 6a-5p please page [phone]. After 5pm and on Weekends and Holidays, please page [phone]. SUBJECTIVE: NAEON. Pt is POD4 from VHR, Colostomy Reversal, and Cholecystectomy. Pt continues to state her pain is well controlled and she has been ambulating without issue. She denies any nausea and vomiting and she has been tolerating her FLD without issue. She states she has been passing gas consistently without any bowel movements. She has been urinating without issue. Tolerating diet DIET LIQUID OBJECTIVE: Vitals: Temp (24hrs), Av.9 ?C (98.4 ?F), Min:36.8 ?C (98.3 ?F), Max:36.9 ?C (98.5 ?F) BP 169/94 Pulse 63 Temp 36.8 ?C (98.3 ?F) (Oral) Resp 12 Ht 149.9 cm (4' 11 ) Wt 52.6 kg (115 lb 15.4 oz) SpO2 93% BMI 23.42 kg/m? O2 Therapy: Room Air IANDO: Date 12/28/23699 - 12/29/23 0612/29/23699 - 12/30/23 0659 Shift 5961-6349 3419-0304 5641-7013 24 Hour Total 9363-1457 2552-3861 4619-7367 24 Hour Total INTAKE PO 240 240 PO 240 240 Shift Total 240 240 OUTPUT Urine 250 638 991 1243 Void (ml) 250 441 035 6724 Urine Incontinence/Not Saved 1 x 1 x Urine Not Saved. 1 x 1 x Tubes 0 50 50 Drain/Tube Output ([REMOVED] Drain/Tube 12/25/23 1214 [facility] Right Anterior;Lower Quadrant Abdomen Drain #1 12/28/23 1200) 0 0 Drain/Tube Output (Drain/Tube 12/25/23 1215 [facility] Chris Turner Left Lower Quadrant;Anterior Abdomen Drain #2) 0 50 50 Shift Total 250 683 039 4664 Weight (kg) 52.6 52.6 52.6 52.6 52.6 52.6 52.6 52.6 MEDICATIONS: Current Facility-Administered Medications Medication Dose Route Frequency albuterol 2.5 mg /3 mL (0.083 %) 2.5 mg (PROVENTIL) 2.5 mg OTHER q 4 H PRN albuterol HFA 90 mcg/actuation 2 Puff (PROVENTIL HFA, VENTOLIN HFA) 2 Puff INHALATION q [address] 40 mg tab(s) (PROTONIX) 40 mg ORAL DAILY (6 AM) magnesium oxide 400 mg tab(s) (MAG-OX) 400 mg ORAL DAILY ondansetron (PF) 4 mg injection (ZOFRAN) 4 mg INTRAVENOUS q 4 H PRN acetaminophen 975 mg tab(s) (TYLENOL) 975 mg ORAL q 6 H traMADol 50-100 mg tab(s) (ULTRAM) 50-100 mg ORAL q 6 H PRN enoxaparin 40 mg injection (LOVENOX) 40 mg SUBCUTANEOUS DAILY NaCl 0.9% iv flush bag 20 mL INTRAVENOUS PRN mometasone-formoterol 100-5 mcg/actuation 2 Puff inhaler (DULERA) 2 Puff INHALATION BID Labs: Recent Labs 12/29/23 0411 12/28/23 0337 NA 138 138 K 4.4 3.4* CHLOR 106* 105 CO2 23 24 BUN 5* 7 CREAT 0.55* 0.57* GLUC 126* 117* ANION 9 9 CA 11.5* 10.1 WBC 9.76 10.67 HB 12.9 11.0* HCT 39.3 32.9* PLT 295 231 Physical Exam: GENERAL: resting comfortably, in no acute distress HEENT: normocephalic, atraumatic, EOMI NECK: trachea midline, no JVD LUNGS: Unlabored breathing, equal chest rise bilaterally CARDIAC: Regular rate, warm extremities, good perfusion throughout ABDOMEN: Soft, appropriate post-operative tenderness, non-distended. No rebound or guarding, midline wound closed with jani, no erythema or edema, previous colostomy site closed with jani, c/d/i, 2 LAURA drains with serosanguinous output, no erythema or edema. EXTREMITIES: ANGELO, No deformities, No edema SKIN: Skin color, texture, turgor normal, No rashes or lesions NEURO: AANDOx3, CN II-XII grossly intact PSYCH: normal mood and affect ASSESSMENT AND PLAN: Assessment Active Hospital Problems Diagnosis Date Noted Ventral hernia without obstruction or gangrene 12/25/2023 Assessment: 78 year old female with PMHx of atrial fibrillation w/ RVR (Eliquis), HTN, GERD, CAD, COPD, depression, hiatal hernia, HLD, s/p RNY (2015), Estelle 2/2 sigmoid diverticulitis (2015), parastomal hernia repair w/ mesh who is s/p Ventral Hernia Repair with Onlay Mesh, Colostomy reversal, colonoscopy with leak test, Cholecystectomy on . Hospital Course/Operations/Procedures: 12/25/2023 Procedure(s): HERNIORRHAPHY VENTRAL ADULT INITIAL REDUCIBLE GREATER THAN 10cm IMPLANT MESH INCISIONAL HERNIA (more content not included)... [facility] 12-28-2023 Note HNO ID: [id number] Author: REGINA DIAMOND MD Service: General Surgery Author Type: Resident Type: Plan of Care Filed: 12/28/2023 11:55 Note Text: LAURA REMOVAL NOTE - Right LAURA LAURA was taken off bulb suction. Dressing was removed. Suture was cut at the skin. LAURA was pulled out. Gauze and tegederm was placed over LAURA. Patient tolerated the procedure well. Regina Diamond MD General Surgery PGY-2 [facility] 12-28-2023 Note HNO ID: [id number] Author: MARK DELGADO MD Service: General Surgery Author Type: Resident Type: Progress Notes Filed: 12/28/2023 10:40 Note Text: ---- Attestation signed by Mark Delgado MD at 12/28/2023 10:40 AM I personally saw and examined the patient. I reviewed the resident's note. I agree with the resident's assessment and plan except as noted below. Plan of care discussed with: Provider, RN, Patient. ---- Elective General Surgery (Green Surgery) Progress Note SERVICE DATE: December 28, 2023 Elective General Surgery (Green Surgery) Service Pager: For questions or concerns Mon-Fri 6a-5p please page [phone]. After 5pm and on Weekends and Holidays, please page [phone]. SUBJECTIVE: NAEON. Pt is POD3 from VHR, Colostomy Reversal, and Cholecystectomy. Pt continues to progress post-operatively well. She states her pain is well controlled, she has been ambulating without issue. She is tolerating her FLD with supp without issue and denies N/V. Pt states she is urinating well without issue. She denies any bowel function and denies passing any flatus. Tolerating diet DIET LIQUID OBJECTIVE: Vitals: Temp (24hrs), Av.9 ?C (98.5 ?F), Min:36.7 ?C (98 ?F), Max:37.1 ?C (98.8 ?F) BP 163/88 Pulse 66 Temp 36.8 ?C (98.3 ?F) (Oral) Resp 18 Ht 149.9 cm (4' 11 ) Wt 52.6 kg (115 lb 15.4 oz) SpO2 94% BMI 23.42 kg/m? O2 Therapy: Room Air IANDO: Date 12/27/23699 - 12/28/23 0659 12/28/23 07 - 12/29/23 0659 Shift 1813-8836 8260-9087 3424-5343 24 Hour Total 7076-6672 9440-6109 8483-7244 24 Hour Total INTAKE PO 360 120 480 PO 360 120 480 Shift Total 360 120 480 OUTPUT Urine 879 619 0133 Void (ml) 067 278 1166 Urine Not Saved. 1 x 1 x Tubes 0 40 38.5 78.5 Drain/Tube Output (Drain/Tube 12/25/23 1214 [facility] Right Anterior;Lower Quadrant Abdomen Drain #1) 0 30 1 31 Drain/Tube Output (Drain/Tube 12/25/23 1215 [facility] Turner Left Lower Quadrant;Anterior Abdomen Drain #2) 0 10 37.5 47.5 Shift Total 0 440 638.5 1078.5 Weight (kg) 52.6 52.6 52.6 52.6 52.6 52.6 52.6 52.6 MEDICATIONS: Current Facility-Administered Medications Medication Dose Route Frequency potassium chloride ER 20 mEq tab(s) (KLOR-CON) 20 mEq ORAL TID albuterol 2.5 mg /3 mL (0.083 %) 2.5 mg (PROVENTIL) 2.5 mg OTHER q 4 H PRN albuterol HFA 90 mcg/actuation 2 Puff (PROVENTIL HFA, VENTOLIN HFA) 2 Puff INHALATION q [address] 40 mg tab(s) (PROTONIX) 40 mg ORAL DAILY (6 AM) magnesium oxide 400 mg tab(s) (MAG-OX) 400 mg ORAL DAILY ondansetron (PF) 4 mg injection (ZOFRAN) 4 mg INTRAVENOUS q 4 H PRN acetaminophen 975 mg tab(s) (TYLENOL) 975 mg ORAL q 6 H traMADol 50-100 mg tab(s) (ULTRAM) 50-100 mg ORAL q 6 H PRN enoxaparin 40 mg injection (LOVENOX) 40 mg SUBCUTANEOUS DAILY NaCl 0.9% iv flush bag 20 mL INTRAVENOUS PRN mometasone-formoterol 100-5 mcg/actuation 2 Puff inhaler (DULERA) 2 Puff INHALATION BID Labs: Recent Labs 12/28/23 0337 12/27/23 0306 12/26/23 0308 NA 138 138 139 K 3.4* 3.6* 4.0 CHLOR 105 105 106* CO2 24 22 22 BUN 7 12 13 CREAT 0.57* 0.65 0.66 GLUC 117* 134* 186* ANION 9 11 11 CA 10.1 10.3* 10.6* MG -- -- 2.0 P -- -- 2.7 ALB -- -- 3.4* AST -- -- 28 ALT -- -- 16 ALKPHOS -- -- 66 TBILI -- -- 0.6 WBC 10.67 15.14* 21.12* HB 11.0* 11.5 12.7 HCT 32.9* 34.5* 38.5 PLT 231 221 241 Physical Exam: GENERAL: resting comfortably, in no acute distress HEENT: normocephalic, atraumatic, EOMI NECK: trachea midline, no JVD LUNGS: Unlabored breathing, equal chest rise bilaterally CARDIAC: Regular rate, warm extremities, good perfusion throughout ABDOMEN: Soft, appropriate post-operative tenderness, non-distended. No rebound or guarding, midline wound closed with jani, no erythema or edema, previous colostomy site closed with jani, c/d/i, 2 LAURA drains with serosanguinous output, no erythema or edema. EXTREMITIES: ANGELO, No deformities, No edema SKIN: Skin color, texture, turgor normal, No rashes or lesions NEURO: AANDOx3, CN II-XII grossly intact PSYCH: normal mood and affect ASSESSMENT AND PLAN: Assessment Active Hospital Problems Diagnosis Date Noted Ventral hernia without obstruction or gangrene 12/25/2023 Assessment: 78 year old female with PMHx of atrial fibrillation w/ RVR (Eliquis), HTN, GERD, CAD, COPD, depression, hiatal hernia, HLD, s/p RNY (2016), Estelle 2/2 sigmoid diverticulitis (2016), parastomal hernia repair w/ mesh who is s/p Ventral Hernia Repair with Onlay Mesh, Colostomy reversal, colonoscopy with leak test, Cholecystectomy on . Hospital Course/Operations/Procedures: 12/25/2023 Procedure(s): HERNIORRHAPHY VENTRAL ADULT INITIAL REDUCIBLE GREATER THAN 10cm IMPLANT MESH INCISIONAL HERNIA REPAIR INITIAL G (more content not included)... [facility] 12-27-2023 Note HNO ID: [id number] Author: MARK DELGADO MD Service: General Surgery Author Type: Resident Type: Progress Notes Filed: 12/27/2023 17:50 Note Text: ---- Attestation signed by Mark Delgado MD at 12/27/2023 5:50 PM I personally saw and examined the patient. I reviewed the resident's note. I agree with the resident's assessment and plan except as noted below. Plan of care discussed with: Provider, RN, Patient. ---- Elective General Surgery (Green Surgery) Progress Note SERVICE DATE: December 27, 2023 Elective General Surgery (Green Surgery) Service Pager: For questions or concerns Mon-Fri 6a-5p please page [phone]. After 5pm and on Weekends and Holidays, please page [phone]. SUBJECTIVE: NAEON. Pt is POD2 from VHR, Colostomy Reversal, and Cholecystectomy. Pt states she has been tolerating her FLD w/ supp without issue. She denies N/V, and states her pain is well controlled and she has been ambulating regularly. She has good urine output but denies any bowel function. Tolerating diet DIET LIQUID OBJECTIVE: Vitals: Temp (24hrs), Av.1 ?C (98.8 ?F), Min:36.8 ?C (98.2 ?F), Max:37.4 ?C (99.4 ?F) BP 142/97 Pulse (!) 55 Temp 36.8 ?C (98.2 ?F) (Oral) Resp 19 Ht 149.9 cm (4' 11 ) Wt 52.6 kg (115 lb 15.4 oz) SpO2 93% BMI 23.42 kg/m? O2 Therapy: Room Air IANDO: Date 12/26/23699 - 12/27/23 0659 12/27/23699 - 12/28/23 0659 Shift 3098-1107 4354-2595 0027-5377 24 Hour Total 9497-8627 1441-1702 5176-1219 24 Hour Total INTAKE PO 620 620 PO 420 420 Supplements (mL) 200 200 IV 125 125 Volume (mL) (lactated ringers iv infusion) 125 125 Shift Total 745 745 OUTPUT Urine 270 152 6776 2300 Void (ml) 347 701 2835 2300 Urine Not Saved. 1 x 1 x 1 x 3 x Tubes 55 0 50 105 Drain/Tube Output (Drain/Tube 12/25/23 1214 [facility] Right Anterior;Lower Quadrant Abdomen Drain #1) 40 0 30 70 Drain/Tube Output (Drain/Tube 12/25/23 1215 [facility] Chris Turner Left Lower Quadrant;Anterior Abdomen Drain #2) 15 0 20 35 Shift Total 168 884 3132 2405 Weight (kg) 52.6 52.6 52.6 52.6 52.6 52.6 52.6 52.6 MEDICATIONS: Current Facility-Administered Medications Medication Dose Route Frequency magnesium sulfate iv piggyback in sterile water 2 g 50 mL 2 g INTRAVENOUS ONCE albuterol 2.5 mg /3 mL (0.083 %) 2.5 mg (PROVENTIL) 2.5 mg OTHER q 4 H PRN albuterol HFA 90 mcg/actuation 2 Puff (PROVENTIL HFA, VENTOLIN HFA) 2 Puff INHALATION q [address] 40 mg tab(s) (PROTONIX) 40 mg ORAL DAILY (6 AM) magnesium oxide 400 mg tab(s) (MAG-OX) 400 mg ORAL DAILY ondansetron (PF) 4 mg injection (ZOFRAN) 4 mg INTRAVENOUS q 4 H PRN acetaminophen 975 mg tab(s) (TYLENOL) 975 mg ORAL q 6 H traMADol 50-100 mg tab(s) (ULTRAM) 50-100 mg ORAL q 6 H PRN enoxaparin 40 mg injection (LOVENOX) 40 mg SUBCUTANEOUS DAILY NaCl 0.9% iv flush bag 20 mL INTRAVENOUS PRN mometasone-formoterol 100-5 mcg/actuation 2 Puff inhaler (DULERA) 2 Puff INHALATION BID Labs: Recent Labs 12/27/23 0306 12/26/23 0308 NA 138 139 K 3.6* 4.0 CHLOR 105 106* CO2 22 22 BUN 12 13 CREAT 0.65 0.66 GLUC 134* 186* ANION 11 11 CA 10.3* 10.6* MG -- 2.0 P -- 2.7 ALB -- 3.4* AST -- 28 ALT -- 16 ALKPHOS -- 66 TBILI -- 0.6 WBC 15.14* 21.12* HB 11.5 12.7 HCT 34.5* 38.5 PLT 221 241 Physical Exam: GENERAL: resting comfortably, in no acute distress HEENT: normocephalic, atraumatic, EOMI NECK: trachea midline, no JVD LUNGS: Unlabored breathing, equal chest rise bilaterally CARDIAC: Regular rate, warm extremities, good perfusion throughout ABDOMEN: Soft, appropriate post-operative tenderness, non-distended. No rebound or guarding, midline wound closed with jani, no erythema or edema, previous colostomy site closed with jani, c/d/i, 2 LAURA drains with serosanguinous output, no erythema or edema. EXTREMITIES: ANGELO, No deformities, No edema SKIN: Skin color, texture, turgor normal, No rashes or lesions NEURO: AANDOx3, CN II-XII grossly intact PSYCH: normal mood and affect ASSESSMENT AND PLAN: Assessment Active Hospital Problems Diagnosis Date Noted Ventral hernia without obstruction or gangrene 12/25/2023 Assessment: 78 year old female with PMHx of atrial fibrillation w/ RVR (Eliquis), HTN, GERD, CAD, COPD, depression, hiatal hernia, HLD, s/p RNY (2016), Estelle 2/2 sigmoid diverticulitis (2016), parastomal hernia repair w/ mesh who is s/p Ventral Hernia Repair with Onlay Mesh, Colostomy reversal, colonoscopy with leak test, Cholecystectomy on . Hospital Course/Operations/Procedures: 12/25/2023 Procedure(s): HERNIORRHAPHY VENTRAL ADULT INITIAL REDUCIBLE GREATER THAN 10cm IMPLANT MESH INCISIONAL HERNIA REPAIR INITIAL GREATER THAN 10 cm CLOSURE COLOSTOMY LITHOTOMY ADULT CHOLECYSTEC (more content not included)... [facility] 12-26-2023 Note HNO ID: [id number] Author: SHABANA SANTIZO RN Service: Care Management Author Type: Registered Nurse Type: Care Mgt Progress Note Filed: 12/26/2023 11:43 Note Text: CARE MANAGEMENT PROGRESS NOTE SERVICE DATE: 12/26/2023 SERVICE TIME: 11:43 AM LOS: 1 day IMM Follow Up Copy Given: Yes Copy given to:: Patient Method: In Person SIGNATURE: Shabana Santizo RN PATIENT NAME: Breanne Diehl DATE: December 26, 2023 TIME: 11:43 AM PAGER/CONTACT #: [phone] [facility] 12-26-2023 Note HNO ID: [id number] Author: SHABANA SANTIZO RN Service: Care Management Author Type: Registered Nurse Type: Care Mgt Initial Assessment Filed: 12/26/2023 11:41 Note Text: CARE MANAGEMENT: ASSESSMENT AND DISCHARGE PLAN SERVICE DATE: December 26, 2023 SERVICE TIME: 11:40 AM PCP: Garret Coy MD Primary Contact: Extended Emergency Contact Information Primary Emergency Contact: Adarsh Diehl Address: [address] [place] [id number] Mobile Relation: Spouse Secondary Emergency Contact: Melvi Pollard [place] Relation: Daughter Admission Status: Inpatient Insurance Provider: [employer] DUAL COMPLETE HMO POS SNP Discharge Planning requested by: Per Department Practice Potential Transition Plans Home;To Be Determined Advance Directives Current Advance Directive: None Injection Molding Technician Attempted to Assist with AD Completion: Yes Action: Education Provided Current Living Arrangements and Support Lives with: Spouse/significant other Type of Residence: Private Residence (House) Does the patient have to climb stairs at home?: stairs within the home Support: Spouse/significant other, Family members How do you manage to accomplish the following: Independent: Ambulation;Bathe/Shower;Dress;Meals/Me al Prep;Going to the bathroom;Medication Management;Transportation to appointments/community Current Services/Equipment Current Post-Acute Service(s): DME Current DME Type: Walker, Ostomy supplies Current Post-Acute Service(s) Provider: Olvin Discharge Planning Patient Goal(s): Less pain, General wellness, Other: See Comment Patient's Other Post-Acute Care Goal(s): surgery [place] of Choice Explained: [place] Given: No Reason Not Given: No placements necessary Are you interested in bedside delivery of your medications? No Discharge Planning Participant(s): Patient Patient/Family Comments: Caregiver Assessment: Caregiver is ready, willing and able to meet the patient's needs as recommended by the inter-professional team: No Caregiver needed Transport at Discharge: Transportation Arrangements: Car Destination: home Needs Prior to Discharge: Needs Prior to Discharge: To Be Determined Post-Acute Discharge Plan: Patient is a 78 year old female who is s/p Ventral Hernia Repair with Onlay Mesh, Colostomy reversal, colonoscopy with leak test, Cholecystectomy on . Patient lives with her and is independent with ADLS. She was getting ostomy supplies through [employer] but will no longer need them at de. Patient did ask if we could assist her in getting grab bars that can attach to her bed for home. CM will reach out to Georgina Goodman and her can transport her home at de. CM will continue to follow. SIGNATURE: Shabana Santizo RN PATIENT NAME: Breanne Diehl DATE: December 26, 2023 TIME: 11:40 AM CONTACT #: [id number] [facility] 12-26-2023 Note HNO ID: [id number] Author: Katerin LAN MD Service: General Surgery Author Type: Resident Type: Progress Notes Filed: 12/26/2023 22:00 Note Text: ---- Attestation signed by Katerin Lan MD at 12/26/2023 10:00 PM I saw and evaluated the patient. Discussed with the resident and agree with resident's findings and plan as documented in the resident's note. Doing well so far Bowel function has not returned yet Drains with serosanguineous fluid Midline incision healing normally Pain seems reasonably well-controlled A/P S/p closure of colostomy with colo-rectal anastomosis, repair of very large ventral-incisional hernia with onlay mesh, cholecystectomy on 12-25-23 Doing well so far Awaiting return of bowel function Continue current management We will plan to go slow with diet advancement given the magnitude of her surgery H Wood Lan MD ---- Elective General Surgery (Green Surgery) Progress Note SERVICE DATE: December 26, 2023 Elective General Surgery (Green Surgery) Service Pager: For questions or concerns Mon-Fri 6a-5p please page [phone]. After 5pm and on Weekends and Holidays, please page [phone]. SUBJECTIVE: NAEON. Pt is POD1 from VHR, Colostomy Reversal, and Cholecystectomy. Pt had some rectal bleeding immediately post-operatively but states she has not noticed any further discharge since getting to the [facility]. Pt states she has been tolerating her CLD without issue. She had one small bowel movement, but does not recall the consistency, color, or amount. Pt states her pain is well controlled currently with her medications. She has been ambulating to the bathroom. Tolerating diet DIET LIQUID OBJECTIVE: Vitals: Temp (24hrs), Av.7 ?C (98.1 ?F), Min:36.2 ?C (97.2 ?F), Max:37.1 ?C (98.7 ?F) BP 139/80 Pulse 74 Temp 37.1 ?C (98.7 ?F) (Oral) Resp 16 Ht 149.9 cm (4' 11 ) Wt 52.6 kg (115 lb 15.4 oz) SpO2 94% BMI 23.42 kg/m? O2 Therapy: Room Air IANDO: Date 12/25/23699 - 12/26/2359 12/26/23 07 - 12/27/23 0659 Shift 9345-4826 6470-2019 5179-6653 24 Hour Total 1496-1422 4794-2769 6079-7669 24 Hour Total INTAKE IV 8417 081 3772 Volume (mL) (magnesium sulfate 2 g in NaCl 0.9% 100 mL) 4 4 Volume (mL) (BUPivacaine liposome (PF) 20 mL, bupivacaine (PF) 0.25 % (2.5 mg/mL) 30 mL in NaCl 0.9% 10 mL) 60 60 Volume (mL) (ertapenem 1 g in NaCl 0.9% 100 mL Vial-Bag (INVanz)) 100 100 Volume (mL) (lactated ringers iv infusion) 600 600 Volume (mL) (lactated ringers iv infusion) 1350 1350 Shift Total 8903 221 4392 OUTPUT Urine 975 168 3821 Void (ml) 250 250 OR Urine Output 860 860 Urine Not Saved. 1 x 1 x Tubes 105 22.5 127.5 Drain/Tube Output (Drain/Tube 12/25/23 1214 [facility] Right Anterior;Lower Quadrant Abdomen Drain #1) 70 15 85 Drain/Tube Output (Drain/Tube 12/25/23 1215 [facility] Turner Left Lower Quadrant;Anterior Abdomen Drain #2) 35 7.5 42.5 Stool 50 50 Liquid BM (mL) 50 50 Blood 75 75 Estimated Blood loss 75 75 Shift Total 935 405 22.5 1362.5 Weight (kg) 52.6 52.6 52.6 52.6 52.6 52.6 52.6 MEDICATIONS: Current Facility-Administered Medications Medication Dose Route Frequency albuterol 2.5 mg /3 mL (0.083 %) 2.5 mg (PROVENTIL) 2.5 mg OTHER q 4 H PRN albuterol HFA 90 mcg/actuation 2 Puff (PROVENTIL HFA, VENTOLIN HFA) 2 Puff INHALATION q [address] 40 mg tab(s) (PROTONIX) 40 mg ORAL DAILY (6 AM) magnesium oxide 400 mg tab(s) (MAG-OX) 400 mg ORAL DAILY ondansetron (PF) 4 mg injection (ZOFRAN) 4 mg INTRAVENOUS q 4 H PRN acetaminophen 975 mg tab(s) (TYLENOL) 975 mg ORAL q 6 H traMADol 50-100 mg tab(s) (ULTRAM) 50-100 mg ORAL q 6 H PRN enoxaparin 40 mg injection (LOVENOX) 40 mg SUBCUTANEOUS DAILY NaCl 0.9% iv flush bag 20 mL INTRAVENOUS PRN lactated ringers iv infusion 40 mL/hr INTRAVENOUS CONTINUOUS mometasone-formoterol 100-5 mcg/actuation 2 Puff inhaler (DULERA) 2 Puff INHALATION BID Labs: Recent Labs 12/26/23 0308 NA 139 K 4.0 CHLOR 106* CO2 22 BUN 13 CREAT 0.66 GLUC 186* ANION 11 CA 10.6* MG 2.0 P 2.7 ALB 3.4* AST 28 ALT 16 ALKPHOS 66 TBILI 0.6 WBC 21.12* HB 12.7 HCT 38.5 PLT 241 Physical Exam: GENERAL: resting comfortably, in no acute distress HEENT: normocephalic, atraumatic, EOMI NECK: trachea midline, no JVD LUNGS: Unlabored breathing, equal chest rise bilaterally CARDIAC: Regular rate, warm extremities, good perfusion throughout ABDOMEN: Soft, appropriate post-operative tenderness, non-distended. No rebound or guarding, midline dressing not taken down, no strikethrough, 2 LAURA drains with serosanguinous output, no erythema or edema. EXTREMITIES: ANGELO, No deformities, No edema SKIN: Skin color, texture, turgor normal, No rashes or lesions NEURO: AANDOx3, CN II-X (more content not included)... [facility] 12-25-2023 Note HNO ID: [id number] Author: JAZMINE ECKERT RN Service: ? Author Type: Registered Nurse Type: Nursing Progress Note Filed: 12/25/2023 17:45 Note Text: Other: report called to JC dukes for update re: pt's BP [facility] 12-25-2023 Note HNO ID: [id number] Author: JAZMINE ECKERT RN Service: ? Author Type: Registered Nurse Type: Nursing Progress Note Filed: 12/25/2023 16:53 Note Text: Other: Dr. Kwan at bedside to assess pt. [facility] 12-25-2023 Note HNO ID: [id number] Author: ANANYA CARRILLO RN Service: ? Author Type: Registered Nurse Type: Nursing Progress Note Filed: 12/25/2023 16:42 Note Text: Report called to Anh GREENE [id number] at this time. [facility] 12-25-2023 Note HNO ID: [id number] Author: BERT ARCE MD Service: Anesthesiology Author Type: Physician Type: Anesthesia Procedure Notes Filed: 12/25/2023 09:28 Note Text: ANESTHESIOLOGY PROCEDURE NOTE Peripheral Nerve Block General Information Procedure Start Time/Medication Administration: 12/25/2023 8:25 AM Procedure End time: 12/25/2023 8:30 AM Patient location during procedure: OR Timeout Performed Pre-procedure: timeout performed Consent Obtained: Yes Patient identity confirmed: arm band Reason for block: post-op pain management/at surgeon's request Staffing Anesthesiologist: Bert Arce MD Performed by: anesthesiologist Preparation Sterility Preparation: hand hygiene performed prior to procedure, surgical cap used, mask used, skin prep agent completely dried prior to procedure Site Prep: Chloraprep Pre-Procedure Neuro Exam Location: ABDOMEN Procedure Details Patient Position: supine Monitoring: Pulse OX, EKG and NIBP Block Type Trunk: rectus sheath block and TAP block Laterality: bilateral Injection Technique: single-shot Ultrasound Guided: Yes Image in Chart: no Needle Needle Type: blunt Needle Gauge: 21 G Needle Length: 110 mm Needle Localization: ultrasound Assessment Injection assessment: negative aspiration and incremental injection SIGNATURE: Bert Arce MD PATIENT NAME: Breanne Diehl DATE: December 25, 2023 TIME: 9:28 AM CSN: [id number] [facility] 12-25-2023 Note HNO ID: [id number] Author: SHYAM GALLOWAY APRN.OUTSIDE SALESPERSON Service: Anesthesiology Author Type: Nurse Brine Process Operator Type: Anesthesia Procedure Notes Filed: 12/25/2023 08:33 Note Text: ANESTHESIOLOGY PROCEDURE NOTE Airway General Information Procedure Start Time/Medication Administration: 12/25/2023 8:20 AM Patient location during procedure: OR Timeout Performed Pre-procedure: timeout performed Consent Obtained: Yes Patient identity confirmed: arm band and patient Staffing OUTSIDE SALESPERSON: Shyam Galloway APRN.OUTSIDE SALESPERSON Performed by: ALMITA Indications and Patient Condition Indications for airway management: anesthesia Preoxygenated: yes anesthesia circuit Patient position: sniffing Method: asleep Cricoid Pressure: Yes Difficult Mask: No Final Airway Details Final airway type: endotracheal airway Final Endotracheal Airway: ETT Cuffed: yes Devices used: intubating stylet Endotracheal tube insertion site: oral Blade: Graciela Blade size: #4 ETT size (mm): 7.5 Measured from: lips Measurement (cm): 21 Placement verified by: chest auscultation and capnometry Number of attempts at approach: 1 Failed airway: no Unrecognized esophageal intubation: no Airway not difficult SIGNATURE: Shyam Galloway APRN.CRNA PATIENT NAME: Breanne Diehl DATE: December 25, 2023 TIME: 8:31 AM CSN: [id number] [facility] 12-25-2023 Note HNO ID: [id number] Author: LUIS MISTRY RN Service: Nursing Author Type: Registered Nurse Type: Nursing Progress Note Filed: 12/25/2023 08:05 Note Text: Karate Instructor at bedside for prayer [facility] 12-19-2023 Note HNO ID: [id number] Author: TAMEKA RICARDO APRN.CNP Service: ? Author Type: Nurse Practitioner Type: Progress Notes Filed: 12/19/2023 13:44 Note Text: ---- Summary: Anesthesia ---- EKG completed with patient today, unconfirmed results as below: SINUS RHYTHM WITH PREMATURE ATRIAL COMPLEXES OTHERWISE NORMAL ECG NO PREVIOUS ECGS AVAILABLE Reviewed patient's HANDP, concerns at PAT with Atrial fib and the fact EKG today did not show Atrial fib with willie Tomlin to proceed as planned with no further optimization requested. [facility] 12-19-2023 History and physical note UPDATED HISTORY AND PHYSICAL EXAMINATION SERVICE DATE: 12/19/2023 SERVICE TIME: 10:04 AM PHYSICAL EXAM MUST BE COMPLETED ON ADMISSION The History and Physical (completed in the past 30 days) has been reviewed and the patient has been examined. The contents accurately reflect the patient's condition with the following additions or revisions since the H&P was completed. Examination indicates no changes. This H&P can be found in the attached. SIGNATURE: Katerin Lan MD PATIENT NAME: Breanne Diehl DATE: December 19, 2023 TIME: 10:04 AM Source Note - Tameka Ricardo APRN.MOVING WORKER - 12/18/2023 10:40 AM EST HISTORY AND PHYSICAL EXAMINATION SERVICE DATE: 12/15/2023 SERVICE TIME: 12:25 PM PRIMARY CARE PHYSICIAN: Garret Coy MD Assessment Patient has the following medical conditions which may affect inez-operative course: Preop examination See note for medical conditions which may affect inez-operative course addressed in visit today. 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) Surgery scheduled 12/25/23 Ventral incisional hernia Surgery scheduled 12/25/23 Essential hypertension, benign No medication BP today 136/86 Atrial fibrillation (HCC) Was found 2021 while in hospital. Was prescribed Eliquis but only took for 1 month and stopped by self due to bruising Does not follow cardiology Event monitor 2021 showed sinus rhythm with PACs Patient denies chest pain, palpitation, SOB, no h/o blood clots, heart sound today regular rate and rhythm, normal S1, S2 Heart failure with reduced ejection fraction (HCC) 02/04/22 TTE showed EF 55%, patient appears euvolemic with no peripheral edema, SOB or chest pain. OSH TTE, 02/04/2022 Normal LV systolic function with ejection fraction 55%. Grade 1 diastolic dysfunction. No significant valve disease Coronary angiography Left Heart Catheterization, 07/03/2016 Angiographically normal coronary arteries Pulmonary HTN (HCC) ECHO 2015 showed RVSP 65mmHg however latest TTE 2021 did not mention RVSP Denies following Pulmonary 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) Symbicort and albuterol Pt uses rescue inhaler as needed - per pt not often. Denies hospitalization or pneumonia in the last 6 weeks. Instructed to use inhaler as prescribed and bring DOS. Acid reflux disease Taking Pantoprazole Continue therapy perioperatively NSTEMI (non-ST elevated myocardial infarction) (HCC) 2015 Cardiac cath showed normal coronary arteries HLD (hyperlipidemia) No medication Diet control Yepez Activity Status Index: METS: Climb a flight of stairs or walk up a hill (5.50 METs) DASI Score: 5.5 Patient denies any chest pain or undue shortness of breath with the above physical activity. Clinical Frailty Scale: 3. Well, with treated comorbid disease ARISCAT Score: Age: 51-80 Preoperative SpO2: >=96% Respiratory infection in the last month: No Preoperative anemia: No Surgical incision: upper abdominal Duration of surgery: >3 hrs Emergency procedure: No ARISCAT Score: 41 ANESTHESIA FINDINGS: Intubation History: No history of difficult intubation. No abnormal airway history Significant Anesthesia Considerations: none Airway History: No history of difficult airway No abnormal airway history I - PHYSICAL EVALUATION AIRWAY Patient intubated: No. DENTAL Dental findings: teeth intact. II - ANESTHESIA PLAN Anesthetic Plan: general Beta Boyd Monitoring Plan Post Procedure Analgesic Plan Prepared for Surgery: CONSULTS: Patient does not require consults for optimization at this time Planned Anesthetic: general The Following Tests/Procedures Have Been Initiated: Orders Placed This Encounter CBC Standing Status: Future Number of Occurrences: 1 Standing Expiration Date: 03/18/2024 BASIC METABOLIC PNL Standing Status: Future Number of Occurrences: 1 Standing Expiration Date: 03/18/2024 Type and Screen, 30 day Standing Status: Future Number of Occurrences: 1 Standing Expiration Date: 03/18/2024 Order Specific Question: [facility] Planned Surgery or Procedure: Answer: [facility] SYMBICORT 160-4.5 mcg/actuation inhaler None ordered per surgeon. CBC, BMP, T&S ordered per VP DESIGN. Implantable Devices: bilateral TKA, hernia mesh, bilateral IOL Pt denies blood thinners. ARISCAT risk index interpretation 0 to 25 points: Low risk: 1.6% pulmonary complication rate 26 to 44 points: Intermediate risk: 13.3% pulmonary complication rate 45 to 123 points: High risk: 42.1% pulmonary complication rate Assessment/Plan 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 ([facility]) [Z43.3] Ventral incisional hernia [K43.2] PLAN Diagnosis: Planned Procedure: Procedure(s) with comments: HERNIORRHAPHY VENTRAL ADULT INITIAL REDUCIBLE 3cm with mesh (N/A) - possible ERAS CLOSURE COLOSTOMY SUPINE ADULT, possible ERAS (N/A) - possible ERAS I spent a total of 40 minutes on the date of the service which included preparing to see the patient, [id number] patient care, completing clinical documentation, obtaining and/or reviewing separately obtained history, performing a medically appropriate examination, and counseling and educating the patient/family/caregiver. REASON FOR VISIT: Breanne Diehl is a 78 year old female who is scheduled for Procedure(s) with comments: HERNIORRHAPHY VENTRAL ADULT INITIAL REDUCIBLE 3cm with mesh (N/A) - possible ERAS CLOSURE COLOSTOMY SUPINE ADULT, possible ERAS (N/A) - possible ERAS at the request of @REFPROV2@ for routine H&P. My final recommendation will be communicated back to the requesting physician by way of shared medical record or letter. Subjective The patient has the following: ACTIVE PROBLEM LIST Essential Hypertension, Benign Hld (Hyperlipidemia) Adjustment Disorder With Depressed Mood Bronchiectasis With Acute Exacerbation (Hcc) Thoracic Or Lumbosacral Neuritis Or Radiculitis, Unspecified Lung Nodule Severe Persistent Asthma Bronchiectasis (Hcc) Allergic Rhinitis, Cause Unspecified Acid Reflux Disease Dysphonia Overactive Bladder Chronic Cough Fracture of Radial Head, Closed Allergic Conjunctivitis Allergic Rhinitis Due to Pollen Excessive Daytime Sleepiness Asthma With Chronic Obstructive Pulmonary Disease (Copd) Obesity Nstemi (Non-St Elevated Myocardial Infarction) (Hcc) Atrial Fibrillation (Hcc) Asthma Exacerbation Acute Postoperative Pain of Abdomen Acute Blood Loss Anemia Heart Failure With Reduced Ejection Fraction (Hcc) Postoperative Ileus (Hcc) 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 Moderate Protein-Calorie Malnutrition (Hcc) Warfarin-Induced Coagulopathy (Hcc) (Hcc) Paroxysmal Atrial Fibrillation (Hcc) Stress-Induced Cardiomyopathy Anticoagulation Management Encounter Perioperative Dehiscence of Abdominal Wound With Evisceration Pseudomonas Infection Status Post Skin Graft 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 CHIEF COMPLAINT: The reason for this visit is to perform a comprehensive review of the patient's past medical history, assess their current health status and obtain any additional testing required based on anesthesia guidelines. We will also identify any potential anesthesia problems or contraindications to the planned procedure. HPI: Breanne Diehl is a 78 year old female who presents to [facility] for a scheduled herniorrhaphy ventral and closure colostomy with Dr. Lan. Patient has h/o perforated diverticulitis following a Myara-en-Y bypass and hiatal hernia repair in 2015, s/p sigmoid colectomy with end colostomy. Shortly after that she developed a parastomal hernia and required reoperation, then an abdominal dehiscence that required a washout. She states had the ventral hernia since shortly after recovery from those procedures in 06/2016. She states it has good and bad days, but always has some cramp and discomfort. She is doing a colonoscopy tomorrow to see if colostomy is good for closure. She denies melena or hematochezia. After discussing with surgeon, patient agrees to surgical intervention. Risk and benefits discussed by surgeon. Patient denies any other problems or concerns at this time. REVIEW OF SYSTEMS: General: Negative for: fever. Neurological: Negative for: delirium, dementia, seizures, TIA and strokes. Respiratory: Positive for: asthma and COPD. Negative for: pneumonia within 6 weeks, URI < 2 weeks and obstructive sleep apnea. Cardiovascular: Positive for: atrial fibrillation (h/o) and CHF (EF 55%) Negative for: CAD, chest pain, DVT/PE and recent MO. GI: See HPI. Positive for: GERD Negative for: dysphagia, hepatitis, liver disease and ETOH >2 drinks/day. : Positive for: urgency. Negative for: dysuria, hematuria, urinary incontinence and renal failure. POLISHER AND BUFFER: Negative for abnormal vaginal bleeding, abnormal vaginal discharge. Endocrine: No history of diabetes. Has not taken steroids within the past 30 days. No history of endocrinological symptoms or problems. Hematology: Positive for: chronic anti-coagulation/platelet meds. Patient is on anti-coagulation/platelet medication(s): DOAC. Negative for: anemia, factor V Leiden, hemophilia and von Willebrand disease. Oncology: No history of CA metastasis, chemo within 30 days, or radiotherapy within 90 days. No history of oncological symptoms or problems. Psych: No history of psychiatric symptoms or problems. Musculoskeletal: Negative for joint pain or swelling, back pain or muscle pain. Skin: Negative for lesions, rash and itching. PAST MEDICAL HISTORY Diagnosis Date Adjustment disorder with depressed mood Asthma Essential hypertension, benign External hemorrhoids without mention of complication GERD (gastroesophageal reflux disease) Internal hemorrhoids without mention of complication Irritable bowel syndrome Overactive bladder Ventral hernia PAST SURGICAL HISTORY Procedure Laterality Date CATARACT EXTRACTION HX Bilateral 2011 COLONOSCOPY 11/26/2006 EGD 10/2014 [place] EGD 12/27/2021 GJ anastomsis w/severe stenosis that was dilated & hemorrhagic mucosa requiring Epi &hemostatic clips x7 EGD DIAGNOSTIC 04/2023 EXPLORATORY OF ABDOMEN 07/06/2016 Parastomal hernia repair w mesh LAP COLECTOMY, PART (ESTELLE TYPE PROC) 06/28/2016 for perforated sigmoid diverticulitis LAP PARTIAL GASTRECTOMY W RNY RECONSTRUC (COMP [id number]) 2015 for hiatal hernia NASAL SURGERY PROCEDURE 02/24/2012 Bilateral total ethmoidectomy, bilateral maxillary antrostomy , right middle turbinectomy, septoplasty (Behzad Sharma MD, [facility]) PAST SURGICAL HISTORY OF 2016 Debridement of abdominal wound with split thickness skin grafting PAST SURGICAL HISTORY OF 07/16/2016 Laparotomy washout, placement of mesh PICC LINE INSERT/CONSULT 07/01/2016 REVISE TOTAL KNEE RE, ONE COMP Right 03/06/2010 complex revision to right total knee replacement -[facility] - Dr. Mcdonald TONSILLECTOMY PRIMARY/SECONDARY <AGE 12 1949 Tonsillectomy TOTAL KNEE REPLACEMENT Bilateral 2001 bilateral knee replacement redo W PROBE PH CAPSULE DOWNEY W/DEL 10/2014 [place] FAMILY HISTORY Problem Relation Age of Onset Cancer Father prostate with mets at 91 y/o Prostate Cancer Father Heart Mother Ischemic Heart Disease Mother 88 at 88 y/o Breast Cancer Sister breast- mastectomy at 92 y/o Cancer Sister lymphoma at 76 y/o Cancer Brother Urinary tract at 91 y/o Diabetes Brother None Sister s/p hip replacements Social History Tobacco Use Smoking status: Former Packs/day: 0.30 Years: 4.00 Additional pack years: 0.00 Total pack years: 1.20 Types: Cigarettes Quit date: 10/27/1965 Years since quittin.1 Smokeless tobacco: Never Tobacco comments: Few cigarettes daily, < 4 years. TO Vaping Use Vaping Use: Never used Substance Use Topics Alcohol use: No Drug use: No Prior to Admission medications as of 09/15/23 0924 Medication Sig Last Dose Taking SYMBICORT 160-4.5 mcg/actuation inhaler Taking Yes oxybutynin (DITROPAN) 5 mg tablet Take 5 mg by mouth. Taking Yes pantoprazole DR (PROTONIX) 40 mg tablet Take 1 tablet by mouth once daily. Taking Yes albuterol HFA (PROVENTIL HFA) 90 mcg/actuation inhaler Inhale 2 Puffs as instructed every 4 hours as needed for Wheezing/Shortness of Breath. 2 PUFFS EVERY 4 HOURS NEEDED; MAY GIVE AVAILABLE EQUIVALENT ALBUTEROL HFA INHALER Taking Yes Jorronwx-Gwbo-Ugz-Folic Acid (CENTRUM) 3,500-18-0.4 unit-mg-mg chewable tablet Take 1 tablet by mouth once daily. Taking Yes cyanocobalamin (VITAMIN B-12) 1,000 mcg tab Take 1 tablet by mouth once daily. Taking Yes apixaban (ELIQUIS) 5 mg tab(s) Take by mouth. Patient not taking: Reported on 07/09/2023 nystatin (MYCOSTATIN) powder Apply 1 application to affected area three times daily. Patient not taking: Reported on 09/15/2023 ksxgam-vaxikeyw-tcikltu (ZENPEP) 40,000-126,000- 168,000 unit delayed release capsule Take 1 capsule by mouth twice daily with meals. Patient not taking: Reported on 05/07/2023 dicyclomine (BENTYL) 20 mg tablet Take 20 mg by mouth as directed. Patient not taking: Reported on 07/09/2023 iron bis-gly/FA/C/B12/Ca/succ (IRON-150 ORAL) Take by mouth. Patient not taking: Reported on 01/08/2023 metoclopramide HCl (REGLAN) 5 mg tablet Take 5 mg by mouth twice daily. Patient not taking: Reported on 05/03/2022 linaclotide (LINZESS) 145 mcg capsule Take by mouth daily at 6 am. acetaminophen 650 mg CR tablet Take 650 mg by mouth every 8 hours as needed. albuterol (PROVENTIL) 2.5 mg /3 mL (0.083 %) nebulizer solution 3 mL every 4 hours as needed. Use one ampule via nebulizer every 4 hours as needed for cough, wheezing, chest tightness or SOB Patient not taking: Reported on 12/18/2023 Not Taking calcium citrate (CALCITRATE) 200 mg (950 mg) tab Take 1 tablet by mouth twice daily. Patient not taking: Reported on 07/09/2023 docusate sodium (COLACE) 100 mg capsule Take 1 capsule by mouth twice daily. Patient not taking: Reported on 01/08/2023 cholecalciferol (VITAMIN D3) 1,000 unit tab tablet Take 2 tablets by mouth once daily. Patient not taking: Reported on 05/03/2022 No medication comments found. ALLERGIES Allergen Reactions Levaquin [Levofloxa* Hives, Swelling, Itching Swelling of face and lips. Penicillins Hives, Intolerance Dilaudid [Hydromorp* Hives Oxycodone Mental Status Change Has been tolerating oxycodone during surgical recovery Objective PHYSICAL EXAM: General: alert and oriented and healthy appearance. Pertinent negatives noted - not distressed. Skin: normal color, no rash or lesions. HEENT: No additional findings for patient's neck. Cardiovascular: regular rate and rhythm, normal S1 and S2, no rub, murmurs, or gallop. Respiratory: normal breath sounds, no wheezes or crackles. No chest wall deformity or tenderness. Abdomen: bowel sounds present, soft and stoma present. Large soft umbilical tissue bulging, small skin breakdown on top and bottom of bulging. Extremities: no deformity, no edema or tenderness, no joint swelling or clubbing. Neurological: normal cognition and motor skills. Gait normal. No weakness or sensory deficit. PAIN ASSESSMENT: Pain Pain Level: 3 Pain Location: Abdomen Frequency: Continuous VITALS: BP 136/86 Pulse 71 Temp 98.2 Resp 16 Ht 5' 0 (1.52m) Wt 111 lb (50.3kg) SpO2 96% BMI 21.68 kg/(m^2). Diagnostic tests reviewed for today's visit: Lab Value Units Date High Low HB No results within date range. HCT No results within date range. WBC No results within date range. PLT No results within date range. NA No results within date range. K No results within date range. GLUC No results within date range. BUN No results within date range. CREAT 0.57 mg/dL 07/09/2023 0.96 0.58 PTSEC No results within date range. INR No results within date range. APTT No results within date range. ALT No results within date range. AST No results within date range. TBILI No results within date range. TSH No results within date range. Lab Value Units Date High Low HCGQT No results within date range. UHCG No results within date range. HCG, BODY* No results within date range. Lab Value Units Date High Low ABORHD No results within date range. ABSCREEN No results within date range. Hemoglobin A1C (%) Date Value 02/26/2013 6.1 HBA1C, Samy (%) Date Value 04/14/2012 5.7 No results found for this or any previous visit (from the past 8760 hour(s)). No results found for this or any previous visit (from the past 70971 hour(s)). Instructions Given to Patient: Instructions located in the after visit summary. Patient given verbal and written preop instructions and voices comprehension and compliance. SIGNATURE: Tameka Ricardo APRN.CNP PATIENT NAME: Breanne Diehl DATE: December 15, 2023 TIME: 1:10 PM PAGER/CONTACT #: documented in this encounter [facility] 12-19-2023 Surgical operation note BRIEF OPERATIVE / PROCEDURE NOTE LOG ID: [id number] SURGERY/PROCEDURE DATE: 12/19/2023 INCISION/PROCEDURE START TIME: 10:28 AM INCISION CLOSE/PROCEDURE END TIME: 11:00 AM SURGEON(S)/PROCEDURALIST(S) AND MAKEUP SALES CONSULTANT(S): Katerin Lan MD - Proceduralist No Additional Staff SURGERY/PROCEDURE(S): COLONOSCOPY ANESTHESIA: Monitored Anesthesia Care FINDINGS: Scope from rectum- old stool disimpacted Rectal stump 20-25 cm- no lesions Scope from colostomy to cecum- no polyps or other lesions ESTIMATED BLOOD LOSS: 0 ml SPECIMENS: None COMPLICATIONS: None CLOSURE TECHNIQUE: Primary PRE-OP/PRE-PROCEDURE DIAGNOSIS: colon screening POST-OP/POST-PROCEDURE DIAGNOSIS: Same as Preop SIGNATURE: Katerin Lan MD PATIENT NAME: Breanne Diehl DATE: December 19, 2023 TIME: 11:20 AM documented in this encounter [facility] 12-18-2023 Note HNO ID: [id number] Author: TAMEKA RICARDO APRN.CNP Service: ? Author Type: Nurse Practitioner Type: Progress Notes Filed: 12/18/2023 12:34 Note Text: ---- Summary: PAT ---- CC LUPE please review with anesthesia and see if medical or cardiac optimization needed. Patient has h/o A fib found in 2021 while in hospital, was sent home with Eliquis; 03/2022 event monitor did not show recurring A fib, patient stopped Eliquis on self due to bruising, did not follow cardiology since then. No recent EKG, order placed today, pt is having colonoscopy tomorrow, will do EKG on site. METs 5.5 Having surgery 12/25/[address] Lan for ventral hernia repair and closure colostomy. PMHx 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) Surgery scheduled 12/25/23 Ventral incisional hernia Surgery scheduled 12/25/23 Essential hypertension, benign No medication BP today 136/86 Atrial fibrillation (HCC) Was found 2021 while in hospital. Was prescribed Eliquis but only took for 1 month and stopped by self due to bruising Does not follow cardiology Event monitor 2021 showed sinus rhythm with PACs Patient denies chest pain, palpitation, SOB, no h/o blood clots, heart sound today regular rate and rhythm, normal S1, S2 Heart failure with reduced ejection fraction ([facility]) 02/04/22 TTE showed EF 55%, patient appears euvolemic with no peripheral edema, SOB or chest pain. OSH TTE, 02/04/2022 Normal LV systolic function with ejection fraction 55%. Grade 1 diastolic dysfunction. No significant valve disease Coronary angiography Left Heart Catheterization, 07/03/2016 Angiographically normal coronary arteries Pulmonary HTN ([facility]) ECHO 2015 showed RVSP 65mmHg however latest TTE 2021 did not mention RVSP Denies following Pulmonary 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) ([facility]) Symbicort and albuterol Pt uses rescue inhaler as needed - per pt not often. Denies hospitalization or pneumonia in the last 6 weeks. Instructed to use inhaler as prescribed and bring DOS. Acid reflux disease Taking Pantoprazole Continue therapy perioperatively NSTEMI (non-ST elevated myocardial infarction) ([facility]) 2015 Cardiac cath showed normal coronary arteries HLD (hyperlipidemia) No medication Diet control Yepez Activity Status Index: METS: Climb a flight of stairs or walk up a hill (5.50 METs) DASI Score: 5.5 Patient denies any chest pain or undue shortness of breath with the above physical activity. [facility] 12-18-2023 Note Education ([facility]) ---- BREANNE DIEHL ([id number]) 1945 F Date Time Provider Department 12/18/23 LUIS MCCLURE [facility] Reason for Visit: Patient Education [91] During your visit today, we recorded the following information about you: Allergies As of Date: 12/18/2023 Noted Allergy Reaction LEVAQUIN (LEVOFLOXACIN) 05/28/2011 4 - Hives 7 - Swelling 9 - Itching Comments: Swelling of face and lips. PENICILLINS 08/13/2005 4 - Hives 5 - Intolerance DILAUDID (HYDROMORPHONE (PF)) 06/28/2016 4 - Hives OXYCODONE 05/31/2016 1 - Mental Status Change Comments: Has been tolerating oxycodone during surgical recovery Date Reviewed: 12/18/2023 Reviewed by: Tameka Ricardo APRN.MOVING WORKER - Fully Assessed Prescriptions as of 12/18/2023 - SYMBICORT 160-4.5 mcg/actuation inhaler - apixaban (ELIQUIS) 5 mg tab(s) Take by mouth. - nystatin (MYCOSTATIN) powder Apply 1 application to affected area three times daily. - gepqpw-nggwjhpt-dmqwuiv (ZENPEP) 40,000-126,000- 168,000 unit delayed release capsule Take 1 capsule by mouth twice daily with meals. - dicyclomine (BENTYL) 20 mg tablet Take 20 mg by mouth as directed. - oxybutynin (DITROPAN) 5 mg tablet Take 5 mg by mouth. - iron bis-gly/FA/C/B12/Ca/succ (IRON-150 ORAL) Take by mouth. - metoclopramide HCl (REGLAN) 5 mg tablet Take 5 mg by mouth twice daily. - linaclotide (LINZESS) 145 mcg capsule Take by mouth daily at 6 am. - acetaminophen 650 mg CR tablet Take 650 mg by mouth every 8 hours as needed. - pantoprazole DR (PROTONIX) 40 mg tablet Take 1 tablet by mouth once daily. - albuterol (PROVENTIL) 2.5 mg /3 mL (0.083 %) nebulizer solution 3 mL every 4 hours as needed. Use one ampule via nebulizer every 4 hours as needed for cough, wheezing, chest tightness or SOB - albuterol HFA (PROVENTIL HFA) 90 mcg/actuation inhaler Inhale 2 Puffs as instructed every 4 hours as needed for Wheezing/Shortness of Breath. 2 PUFFS EVERY 4 HOURS NEEDED; MAY GIVE AVAILABLE EQUIVALENT ALBUTEROL HFA INHALER - calcium citrate (CALCITRATE) 200 mg (950 mg) tab Take 1 tablet by mouth twice daily. - docusate sodium (COLACE) 100 mg capsule Take 1 capsule by mouth twice daily. - Ngwljhre-Nyrk-Yrg-Folic Acid (CENTRUM) 3,500-18-0.4 unit-mg-mg chewable tablet Take 1 tablet by mouth once daily. - cyanocobalamin (VITAMIN B-12) 1,000 mcg tab Take 1 tablet by mouth once daily. - cholecalciferol (VITAMIN D3) 1,000 unit tab tablet Take 2 tablets by mouth once daily. Encounter Status:Closed by LUIS MCCLURE on 12/18/23 [facility] 12-18-2023 Note HNO ID: [id number] Author: LUIS MCCLURE RN Service: ? Author Type: Registered Nurse Type: Progress Notes Filed: 12/18/2023 11:30 Note Text: GENERAL SURGERY/ERAS COMMISS[employer]ED SALES ASSOCIATE PREOPERATIVE EDUCATION Date: 12/18/2023 Time: 11:00 AM Education provide to: Patient Lives with: Spouse Mobility: Independent ERAS protocol instructions given with good understanding. Written instructions given to patient. Encouraged to call with any questions. SIGNATURE: Luis Mcclure RN PATIENT NAME: Breanne Diehl DATE: December 18, 2023 TIME: 11:29 AM PAGER/CONTACT #: [phone] [facility] 12-18-2023 History of Present illness Narrative Summary: PAT CC LUPE please review with anesthesia and see if medical or cardiac optimization needed. Patient has h/o A fib found in 2021 while in hospital, was sent home with Eliquis; 03/2022 event monitor did not show recurring A fib, patient stopped Eliquis on self due to bruising, did not follow cardiology since then. No recent EKG, order placed today, pt is having colonoscopy tomorrow, will do EKG on site. METs 5.5 Having surgery 12/25/[address] Lan for ventral hernia repair and closure colostomy. PMHx 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) Surgery scheduled 12/25/23 Ventral incisional hernia Surgery scheduled 12/25/23 Essential hypertension, benign No medication BP today 136/86 Atrial fibrillation (HCC) Was found 2021 while in hospital. Was prescribed Eliquis but only took for 1 month and stopped by self due to bruising Does not follow cardiology Event monitor 2021 showed sinus rhythm with PACs Patient denies chest pain, palpitation, SOB, no h/o blood clots, heart sound today regular rate and rhythm, normal S1, S2 Heart failure with reduced ejection fraction ([facility]) 02/04/22 TTE showed EF 55%, patient appears euvolemic with no peripheral edema, SOB or chest pain. OSH TTE, 02/04/2022 Normal LV systolic function with ejection fraction 55%. Grade 1 diastolic dysfunction. No significant valve disease Coronary angiography Left Heart Catheterization, 07/03/2016 Angiographically normal coronary arteries Pulmonary HTN ([facility]) ECHO 2016 showed RVSP 65mmHg however latest TTE 2021 did not mention RVSP Denies following Pulmonary 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) ([facility]) Symbicort and albuterol Pt uses rescue inhaler as needed - per pt not often. Denies hospitalization or pneumonia in the last 6 weeks. Instructed to use inhaler as prescribed and bring DOS. Acid reflux disease Taking Pantoprazole Continue therapy perioperatively NSTEMI (non-ST elevated myocardial infarction) ([facility]) 2015 Cardiac cath showed normal coronary arteries HLD (hyperlipidemia) No medication Diet control Yepez Activity Status Index: METS: Climb a flight of stairs or walk up a hill (5.50 METs) DASI Score: 5.5 Patient denies any chest pain or undue shortness of breath with the above physical activity. documented in this encounter [facility] 12-18-2023 History of Present illness Narrative GENERAL SURGERY/ERAS [employer] PREOPERATIVE EDUCATION Date: 12/18/2023 Time: 11:00 AM Education provide to: Patient Lives with: Spouse Mobility: Independent ERAS protocol instructions given with good understanding. Written instructions given to patient. Encouraged to call with any questions. SIGNATURE: Luis Mcclure RN PATIENT NAME: Breanne Diehl DATE: December 18, 2023 TIME: 11:29 AM PAGER/CONTACT #: [phone] documented in this encounter [facility] 12-18-2023 History and physical note HISTORY AND PHYSICAL EXAMINATION SERVICE DATE: 12/15/2023 SERVICE TIME: 12:25 PM PRIMARY CARE PHYSICIAN: Garret Coy MD Assessment Patient has the following medical conditions which may affect inez-operative course: Preop examination See note for medical conditions which may affect inez-operative course addressed in visit today. 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) Surgery scheduled 12/25/23 Ventral incisional hernia Surgery scheduled 12/25/23 Essential hypertension, benign No medication BP today 136/86 Atrial fibrillation ([facility]) Was found 2021 while in hospital. Was prescribed Eliquis but only took for 1 month and stopped by self due to bruising Does not follow cardiology Event monitor 2021 showed sinus rhythm with PACs Patient denies chest pain, palpitation, SOB, no h/o blood clots, heart sound today regular rate and rhythm, normal S1, S2 Heart failure with reduced ejection fraction ([facility]) 02/04/22 TTE showed EF 55%, patient appears euvolemic with no peripheral edema, SOB or chest pain. OSH TTE, 02/04/2022 Normal LV systolic function with ejection fraction 55%. Grade 1 diastolic dysfunction. No significant valve disease Coronary angiography Left Heart Catheterization, 07/03/2016 Angiographically normal coronary arteries Pulmonary HTN ([facility]) ECHO 2015 showed RVSP 65mmHg however latest TTE 2021 did not mention RVSP Denies following Pulmonary 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) ([facility]) Symbicort and albuterol Pt uses rescue inhaler as needed - per pt not often. Denies hospitalization or pneumonia in the last 6 weeks. Instructed to use inhaler as prescribed and bring DOS. Acid reflux disease Taking Pantoprazole Continue therapy perioperatively NSTEMI (non-ST elevated myocardial infarction) ([facility]) 2015 Cardiac cath showed normal coronary arteries HLD (hyperlipidemia) No medication Diet control Yepez Activity Status Index: METS: Climb a flight of stairs or walk up a hill (5.50 METs) DASI Score: 5.5 Patient denies any chest pain or undue shortness of breath with the above physical activity. Clinical Frailty Scale: 3. Well, with treated comorbid disease ARISCAT Score: Age: 51-80 Preoperative SpO2: >=96% Respiratory infection in the last month: No Preoperative anemia: No Surgical incision: upper abdominal Duration of surgery: >3 hrs Emergency procedure: No ARISCAT Score: 41 ANESTHESIA FINDINGS: Intubation History: No history of difficult intubation. No abnormal airway history Significant Anesthesia Considerations: none Airway History: No history of difficult airway No abnormal airway history I - PHYSICAL EVALUATION AIRWAY Patient intubated: No. DENTAL Dental findings: teeth intact. II - ANESTHESIA PLAN Anesthetic Plan: general Beta Boyd Monitoring Plan Post Procedure Analgesic Plan Prepared for Surgery: CONSULTS: Patient does not require consults for optimization at this time Planned Anesthetic: general The Following Tests/Procedures Have Been Initiated: Orders Placed This Encounter CBC Standing Status: Future Number of Occurrences: 1 Standing Expiration Date: 03/18/2024 BASIC METABOLIC PNL Standing Status: Future Number of Occurrences: 1 Standing Expiration Date: 03/18/2024 Type and Screen, 30 day Standing Status: Future Number of Occurrences: 1 Standing Expiration Date: 03/18/2024 Order Specific Question: [facility] Planned Surgery or Procedure: Answer: [facility] SYMBICORT 160-4.5 mcg/actuation inhaler None ordered per surgeon. CBC, BMP, T&S ordered per VP DESIGN. Implantable Devices: bilateral TKA, hernia mesh, bilateral IOL Pt denies blood thinners. ARISCAT risk index interpretation 0 to 25 points: Low risk: 1.6% pulmonary complication rate 26 to 44 points: Intermediate risk: 13.3% pulmonary complication rate 45 to 123 points: High risk: 42.1% pulmonary complication rate Assessment/Plan 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) [Z43.3] Ventral incisional hernia [K43.2] PLAN Diagnosis: Planned Procedure: Procedure(s) with comments: HERNIORRHAPHY VENTRAL ADULT INITIAL REDUCIBLE 3cm with mesh (N/A) - possible ERAS CLOSURE COLOSTOMY SUPINE ADULT, possible ERAS (N/A) - possible ERAS I spent a total of 40 minutes on the date of the service which included preparing to see the patient, [id number] patient care, completing clinical documentation, obtaining and/or reviewing separately obtained history, performing a medically appropriate examination, and counseling and educating the patient/family/caregiver. REASON FOR VISIT: Breanne Diehl is a 78 year old female who is scheduled for Procedure(s) with comments: HERNIORRHAPHY VENTRAL ADULT INITIAL REDUCIBLE 3cm with mesh (N/A) - possible ERAS CLOSURE COLOSTOMY SUPINE ADULT, possible ERAS (N/A) - possible ERAS at the request of @REFPROV2@ for routine H&P. My final recommendation will be communicated back to the requesting physician by way of shared medical record or letter. Subjective The patient has the following: ACTIVE PROBLEM LIST Essential Hypertension, Benign Hld (Hyperlipidemia) Adjustment Disorder With Depressed Mood Bronchiectasis With Acute Exacerbation (Hcc) Thoracic Or Lumbosacral Neuritis Or Radiculitis, Unspecified Lung Nodule Severe Persistent Asthma Bronchiectasis (Hcc) Allergic Rhinitis, Cause Unspecified Acid Reflux Disease Dysphonia Overactive Bladder Chronic Cough Fracture of Radial Head, Closed Allergic Conjunctivitis Allergic Rhinitis Due to Pollen Excessive Daytime Sleepiness Asthma With Chronic Obstructive Pulmonary Disease (Copd) Obesity Nstemi (Non-St Elevated Myocardial Infarction) (Hcc) Atrial Fibrillation (Hcc) Asthma Exacerbation Acute Postoperative Pain of Abdomen Acute Blood Loss Anemia Heart Failure With Reduced Ejection Fraction (Hcc) Postoperative Ileus (Hcc) 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 Moderate Protein-Calorie Malnutrition (Hcc) Warfarin-Induced Coagulopathy (Hcc) (Hcc) Paroxysmal Atrial Fibrillation (Hcc) Stress-Induced Cardiomyopathy Anticoagulation Management Encounter Perioperative Dehiscence of Abdominal Wound With Evisceration Pseudomonas Infection Status Post Skin Graft 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 CHIEF COMPLAINT: The reason for this visit is to perform a comprehensive review of the patient's past medical history, assess their current health status and obtain any additional testing required based on anesthesia guidelines. We will also identify any potential anesthesia problems or contraindications to the planned procedure. HPI: Breanne Diehl is a 78 year old female who presents to [facility] for a scheduled herniorrhaphy ventral and closure colostomy with Dr. Lan. Patient has h/o perforated diverticulitis following a Mayra-en-Y bypass and hiatal hernia repair in 2015, s/p sigmoid colectomy with end colostomy. Shortly after that she developed a parastomal hernia and required reoperation, then an abdominal dehiscence that required a washout. She states had the ventral hernia since shortly after recovery from those procedures in 06/2016. She states it has good and bad days, but always has some cramp and discomfort. She is doing a colonoscopy tomorrow to see if colostomy is good for closure. She denies melena or hematochezia. After discussing with surgeon, patient agrees to surgical intervention. Risk and benefits discussed by surgeon. Patient denies any other problems or concerns at this time. REVIEW OF SYSTEMS: General: Negative for: fever. Neurological: Negative for: delirium, dementia, seizures, TIA and strokes. Respiratory: Positive for: asthma and COPD. Negative for: pneumonia within 6 weeks, URI < 2 weeks and obstructive sleep apnea. Cardiovascular: Positive for: atrial fibrillation (h/o) and CHF (EF 55%) Negative for: CAD, chest pain, DVT/PE and recent MO. GI: See HPI. Positive for: GERD Negative for: dysphagia, hepatitis, liver disease and ETOH >2 drinks/day. : Positive for: urgency. Negative for: dysuria, hematuria, urinary incontinence and renal failure. POLISHER AND BUFFER: Negative for abnormal vaginal bleeding, abnormal vaginal discharge. Endocrine: No history of diabetes. Has not taken steroids within the past 30 days. No history of endocrinological symptoms or problems. Hematology: Positive for: chronic anti-coagulation/platelet meds. Patient is on anti-coagulation/platelet medication(s): DOAC. Negative for: anemia, factor V Leiden, hemophilia and von Willebrand disease. Oncology: No history of CA metastasis, chemo within 30 days, or radiotherapy within 90 days. No history of oncological symptoms or problems. Psych: No history of psychiatric symptoms or problems. Musculoskeletal: Negative for joint pain or swelling, back pain or muscle pain. Skin: Negative for lesions, rash and itching. PAST MEDICAL HISTORY Diagnosis Date Adjustment disorder with depressed mood Asthma Essential hypertension, benign External hemorrhoids without mention of complication GERD (gastroesophageal reflux disease) Internal hemorrhoids without mention of complication Irritable bowel syndrome Overactive bladder Ventral hernia PAST SURGICAL HISTORY Procedure Laterality Date CATARACT EXTRACTION HX Bilateral 2012 COLONOSCOPY 11/26/2006 EGD 10/2014 [place] EGD 12/27/2021 GJ anastomsis w/severe stenosis that was dilated & hemorrhagic mucosa requiring Epi &hemostatic clips x7 EGD DIAGNOSTIC 04/2023 EXPLORATORY OF ABDOMEN 07/06/2016 Parastomal hernia repair w mesh LAP COLECTOMY, PART (ESTELLE TYPE PROC) 06/28/2016 for perforated sigmoid diverticulitis LAP PARTIAL GASTRECTOMY W RNY RECONSTRUC (COMP 63372) 2015 for hiatal hernia NASAL SURGERY PROCEDURE 02/24/2012 Bilateral total ethmoidectomy, bilateral maxillary antrostomy , right middle turbinectomy, septoplasty (Behzad Sharma MD, [facility]) PAST SURGICAL HISTORY OF 2017 Debridement of abdominal wound with split thickness skin grafting PAST SURGICAL HISTORY OF 07/16/2016 Laparotomy washout, placement of mesh PICC LINE INSERT/CONSULT 07/01/2016 REVISE TOTAL KNEE RE, ONE COMP Right 03/06/2010 complex revision to right total knee replacement -[facility] - Dr. Mcdonald TONSILLECTOMY PRIMARY/SECONDARY <AGE 12 9 Tonsillectomy TOTAL KNEE REPLACEMENT Bilateral 2001 bilateral knee replacement redo W PROBE PH CAPSULE DOWNEY W/DEL 10/2014 [place] FAMILY HISTORY Problem Relation Age of Onset Cancer Father prostate with mets at 91 y/o Prostate Cancer Father Heart Mother Ischemic Heart Disease Mother 88 at 88 y/o Breast Cancer Sister breast- mastectomy at 92 y/o Cancer Sister lymphoma at 76 y/o Cancer Brother Urinary tract at 91 y/o Diabetes Brother None Sister s/p hip replacements Social History Tobacco Use Smoking status: Former Packs/day: 0.30 Years: 4.00 Additional pack years: 0.00 Total pack years: 1.20 Types: Cigarettes Quit date: 10/27/1965 Years since quittin.1 Smokeless tobacco: Never Tobacco comments: Few cigarettes daily, < 4 years. TO Vaping Use Vaping Use: Never used Substance Use Topics Alcohol use: No Drug use: No Prior to Admission medications as of 09/15/23 0924 Medication Sig Last Dose Taking SYMBICORT 160-4.5 mcg/actuation inhaler Taking Yes oxybutynin (DITROPAN) 5 mg tablet Take 5 mg by mouth. Taking Yes pantoprazole DR (PROTONIX) 40 mg tablet Take 1 tablet by mouth once daily. Taking Yes albuterol HFA (PROVENTIL HFA) 90 mcg/actuation inhaler Inhale 2 Puffs as instructed every 4 hours as needed for Wheezing/Shortness of Breath. 2 PUFFS EVERY 4 HOURS NEEDED; MAY GIVE AVAILABLE EQUIVALENT ALBUTEROL HFA INHALER Taking Yes Djfouxcv-Pxno-Eec-Folic Acid (CENTRUM) 3,500-18-0.4 unit-mg-mg chewable tablet Take 1 tablet by mouth once daily. Taking Yes cyanocobalamin (VITAMIN B-12) 1,000 mcg tab Take 1 tablet by mouth once daily. Taking Yes apixaban (ELIQUIS) 5 mg tab(s) Take by mouth. Patient not taking: Reported on 07/09/2023 nystatin (MYCOSTATIN) powder Apply 1 application to affected area three times daily. Patient not taking: Reported on 09/15/2023 txekkn-xugprlfm-djlhtdz (ZENPEP) 40,000-126,000- 168,000 unit delayed release capsule Take 1 capsule by mouth twice daily with meals. Patient not taking: Reported on 05/07/2023 dicyclomine (BENTYL) 20 mg tablet Take 20 mg by mouth as directed. Patient not taking: Reported on 07/09/2023 iron bis-gly/FA/C/B12/Ca/succ (IRON-150 ORAL) Take by mouth. Patient not taking: Reported on 01/08/2023 metoclopramide HCl (REGLAN) 5 mg tablet Take 5 mg by mouth twice daily. Patient not taking: Reported on 05/03/2022 linaclotide (LINZESS) 145 mcg capsule Take by mouth daily at 6 am. acetaminophen 650 mg CR tablet Take 650 mg by mouth every 8 hours as needed. albuterol (PROVENTIL) 2.5 mg /3 mL (0.083 %) nebulizer solution 3 mL every 4 hours as needed. Use one ampule via nebulizer every 4 hours as needed for cough, wheezing, chest tightness or SOB Patient not taking: Reported on 12/18/2023 Not Taking calcium citrate (CALCITRATE) 200 mg (950 mg) tab Take 1 tablet by mouth twice daily. Patient not taking: Reported on 07/09/2023 docusate sodium (COLACE) 100 mg capsule Take 1 capsule by mouth twice daily. Patient not taking: Reported on 01/08/2023 cholecalciferol (VITAMIN D3) 1,000 unit tab tablet Take 2 tablets by mouth once daily. Patient not taking: Reported on 05/03/2022 No medication comments found. ALLERGIES Allergen Reactions Levaquin [Levofloxa* Hives, Swelling, Itching Swelling of face and lips. Penicillins Hives, Intolerance Dilaudid [Hydromorp* Hives Oxycodone Mental Status Change Has been tolerating oxycodone during surgical recovery Objective PHYSICAL EXAM: General: alert and oriented and healthy appearance. Pertinent negatives noted - not distressed. Skin: normal color, no rash or lesions. HEENT: No additional findings for patient's neck. Cardiovascular: regular rate and rhythm, normal S1 and S2, no rub, murmurs, or gallop. Respiratory: normal breath sounds, no wheezes or crackles. No chest wall deformity or tenderness. Abdomen: bowel sounds present, soft and stoma present. Large soft umbilical tissue bulging, small skin breakdown on top and bottom of bulging. Extremities: no deformity, no edema or tenderness, no joint swelling or clubbing. Neurological: normal cognition and motor skills. Gait normal. No weakness or sensory deficit. PAIN ASSESSMENT: Pain Pain Level: 3 Pain Location: Abdomen Frequency: Continuous VITALS: BP 136/86 Pulse 71 Temp 98.2 Resp 16 Ht 5' 0 (1.52m) Wt 111 lb (50.3kg) SpO2 96% BMI 21.68 kg/(m^2). Diagnostic tests reviewed for today's visit: Lab Value Units Date High Low HB No results within date range. HCT No results within date range. WBC No results within date range. PLT No results within date range. NA No results within date range. K No results within date range. GLUC No results within date range. BUN No results within date range. CREAT 0.57 mg/dL 07/09/2023 0.96 0.58 PTSEC No results within date range. INR No results within date range. APTT No results within date range. ALT No results within date range. AST No results within date range. TBILI No results within date range. TSH No results within date range. Lab Value Units Date High Low HCGQT No results within date range. UHCG No results within date range. HCG, BODY* No results within date range. Lab Value Units Date High Low ABORHD No results within date range. ABSCREEN No results within date range. Hemoglobin A1C (%) Date Value 02/26/2013 6.1 HBA1C, Samy (%) Date Value 04/14/2012 5.7 No results found for this or any previous visit (from the past 8760 hour(s)). No results found for this or any previous visit (from the past 42562 hour(s)). Instructions Given to Patient: Instructions located in the after visit summary. Patient given verbal and written preop instructions and voices comprehension and compliance. SIGNATURE: Tameka Ricardo APRN.CNP PATIENT NAME: Breanne Diehl DATE: December 15, 2023 TIME: 1:10 PM PAGER/CONTACT #: documented in this encounter [facility] 12-15-2023 Instructions Tameka Ricardo APRN.CNP - 12/15/2023 1:09 PM EST PATIENT PREOPERATIVE INSTRUCTIONS Your surgeon has scheduled for your procedure at this surgery center: [facility]: [phone], [address] [address] Please read below carefully for your personalized instructions. Surgery Date: 12/25/23 Your surgeon's office will provide you with your ARRIVAL TIME for surgery. - If you have not received an arrival time by the afternoon before your surgery date, please follow up with your surgeon's office. - If you are scheduled for Friday surgery, please make sure you have your arrival time by Friday afternoon. - Please be aware that emergency situations arise, which may delay or change your surgical time. If this happens, your surgeon's office will notify you as soon as possible and regret any inconvenience. Dietary Restrictions: - Nothing to eat or drink after midnight except for a sip of water with approved medications. Please stop ALL clear liquids 2 hours prior to your ARRIVAL TIME. This is important because otherwise your surgery may have to be cancelled. Blood Thinning Medications: - Stop NSAIDS (Ibuprofen, Advil, Aleve, Motrin, Celebrex, Mobic, etc.) 7 days before surgery, or as directed by your surgeon. You may take Tylenol (Acetaminophen) or any of your pain medications that do not contain aspirin or NSAIDS as needed. IF YOU TAKE ANY OF THE FOLLOWING BLOOD THINNERS, PLEASE CONTACT YOUR SURGEON AND THE PHYSICIAN WHO PRESCRIBES IT FOR YOU IN ORDER TO GET PERIOPERATIVE INSTRUCTIONS SOON POSSIBLE. BLOOD THINNERS: Aspirin , Coumadin, Plavix, Eliquis, Pradaxa, Xarelto, Lovenox, Brilinta, Effient, Savaysa, Arixtra, etc - Stop Vitamin E, fish oil, multivitamins, Marijuana, CBD oil and other over the counter herbals and dietary supplements 7 days before surgery. - This would not apply to cancer patients who are prescribed Marinol or any other prescription form on marijuana or CBD. Medications: Pre-Surgery Med Instructions Medication Instructions SYMBICORT 160-4.5 mcg/actuation inhaler Use and bring to surgery oxybutynin (DITROPAN) 5 mg tablet Continue until night before surgery pantoprazole DR (PROTONIX) 40 mg tablet Take morning of surgery with sip of water, no other fluids albuterol HFA (PROVENTIL HFA) 90 mcg/actuation inhaler Use and bring to surgery Knatjejj-Hrgo-Xzs-Folic Acid (CENTRUM) 3,500-18-0.4 unit-mg-mg chewable tablet Stop 7 days before surgery cyanocobalamin (VITAMIN B-12) 1,000 mcg tab Stop 7 days before surgery HOLD - LIYA inhibitors (Angiotensin-converting enzyme inhibitors) and ARBs (Angiotensin II receptor blockers) Day of surgery. Use inhalers as prescribed. Please bring inhalers. Weight loss medications: - Sympathomimetics such as Adipex-P (Phentermine): Stop 4 days before surgery. - Contrave (Naltrexone/Bupropion) Hold 2-3 days. - Qsymia (Phentermine/Topiramate - Please contact your prescribing provider for Pre op directions. (Depending on the patients dose this medication may need tapered off. They should get pre-op directions from their prescribing provider.) - GLP-1 Agonists (oral and injectables) Hold 7 days. Patients with Diabetes Mellitus: Please follow up with the provider that manages your diabetes and how to prepare you for surgery. Do not take the following medications Morning of surgery: Trajenta, Metformin, Actos/Pioglitazone and Amaryl/Glimepiride. For the following Medications, please HOLD 2 DAYS PRIOR TO SURGERY: Glucotrol/Glipizide, Januvia/Sitagliptin, Glyburide, Prandin/Repaglinide, Starlix/Nateglinide, Symlin/Pramlintide For the following Medications, please HOLD 3 DAYS PRIOR TO SURGERY: Canagliflozin/Invokana, Dapagliflozin/Farxiga, Empagliflozin/Jardiance, Invokamet/ canagliflozin and metformin, Xigduo XR/ dapagliglozin and metformin, Glyxambi/ empagliflozin and metformin, Syndardy/ empagliflozin and metformin For the following Medications, please HOLD 4 DAYS PRIOR TO SURGERY: Ertugliflozin/Steglatro For the following Medications, please HOLD 7 DAYS PRIOR TO SURGERY: GLP-1 AGONIST: Adlyxin (lixisenatide), Bydureon BCise (exenatide suspension), Byetta (exenatide), Mounjaro (tirzepatide), Ozempic (semaglutide injection), Rybelsus (semaglutide tablets), Tanzeum (albiglutide), Trulicity (dulaglutide), Victoza (liraglutide), Wegovy (semaglutide), Saxenda (liraglutide) Insulin Medication Instructions: Please follow up with the provider that manages your Insulin and how to prepare you for surgery. If you start any new medications after today's visit, please contact the surgeon's office. Important Reminders: - If you have a stimulator, implant or pump that requires a remote, please bring the remote with you day of surgery. - If you use CPAP/BIPAP, bring the machine with you to the surgery center. - If you are prescribed inhalers for breathing, continue using them AND bring them to the surgery center. - Candy, mints, gum and tobacco products are NOT permitted the morning of surgery. - Hearing aids, dentures and glasses may be worn the morning of surgery. - NO jewelry, body piercings, makeup, hairpins or contacts are to be worn the day of surgery. - Oral hygiene and a shower or bath is required the evening before or the morning of surgery. - NO lotion, creams, powders or deodorants on the skin the day of surgery. - Wear loose, comfortable clothing that will accommodate bandages. - Your length of stay will be determined by your surgeon. - You will need to have someone else (Family or friend) to drive you home once discharged from the hospital. You cannot drive yourself home after surgery. - YOU MUST HAVE A RESPONSIBLE GEM SETTER TAKE YOU HOME. A TUFTING CREELER, CAB OR UBER GEM SETTER CANNOT BE MADE A RESPONSIBLE GEM SETTER. - If you are undergoing an outpatient procedure you must have someone drive you home and stay with you for the first 24 hours. Your ride home must be at least 18 years old or older. Your surgery may be cancelled if you do not have someone to drive you home or take care of you. - You cannot stay in a hotel alone after an outpatient surgery. - It is recommended patients have a 72-hour period between getting their vaccine and the date of surgery. Visitation: Visitors to any [facility] facility: Any individual who is sick should not visit. Visitors to patients with COVID-19 must follow these guidelines, which include wearing a mask, eye protection, gown and gloves. [facility] [place] Visitation hours: 7 AM to 9 PM. Pre-Surgery Unit - Patients may have up to 2 visitors at a time. PACU recovery Unit - Patients may have up to 1-2 visitors at a time. [facility] [place] Pre-Surgery area - 1 visitor at a time due to limited space. PACU recovery area - No visitors due to limited space unless patient is a minor due to limited space. If you develop symptoms such as a fever, cold, or flu, or have other changes to your health within TWO DAYS of scheduled surgery or the morning of surgery, please contact the surgeon's office. Personal Belongings: - Leave ALL valuables and money at home or with family members. - You will need a form of ID and insurance card to check in the morning of surgery. - If you do not have a copy of advance directives on file with us, please bring a copy with you on the day of surgery. If you already have an Advance Directive, please fax a copy to [phone] or email to for it to be added to your chart. If you do not have an Advance Directive, you can find the appropriate form and more information at [email or web address]. We recommend that you complete the Advance Directive form found on the website and bring it with you the day of your surgery. It can be witnessed and scanned into your chart that day. IF you are having a TOTAL KNEE, HIP REPLACEMENT OR ORTHOPEDIC SURGERY: - Orthopedic patients at [facility] listed as outpatient, please bring walker into the building. - Orthopedic patients at [facility] listed as to be admitted, please leave walkers in the car or with a family member. - Orthopedic patients at [facility] [place], please bring the walker into the building day of surgery. Hibiclens provided The anti-bacterial soap (Hibiclens) should be used TWICE prior to surgery: The night before surgery and the morning of surgery: - If you plan to wash your hair, do so with your regular shampoo. Then rinse hair and body thoroughly to remove any shampoo residue. - Wash your face with water or your regular soap. - Thoroughly rinse your body with water from the neck down - Apply Hibiclens directly on your skin or on a wet washcloth and wash gently. Move away from the shower stream when applying Hibiclens to ensure the CHG binds to the skin. - Pay special attention to the area where your surgery will be performed - Rinse thoroughly - Apply clean bedding and clean clothing after shower Do not use your regular soap after applying and rinsing Hibiclens. Do not apply any lotions, deodorants, powders, or perfumes to the body areas that have been cleaned with Hibiclens. Do not use Hibiclens: - If you are allergic to Chlorhexidine gluconate or any other ingredient in this preparation - In contact with the meninges - In the genital area - On wounds that involve more than the superficial layers of the skin Please review Hibiclens pamphlet prior to use. Tameka Ricardo APRN.CNP 12/15/23 documented in this encounter [facility] 09-15-2023 Note HNO ID: [id number] Author: Katerin Lan MD Service: ? Author Type: Physician Type: Progress Notes Filed: 09/15/2023 9:51 PM Note Text: Vi Lan MD General Surgery [address] [place] [address], [address] [place] [address] Patient referred by: Parisa Coleman [address] Breanne Diehl is a 78 year old White female who presents for evaluation and management of a ventral hernia. She has a complicated abdominal history: In May 2016 she underwent a Mayra-en-Y gastric bypass with repair of a hiatal hernia. This was done due to severe reflux with pulmonary sequelae. It was not done for weight loss. Several weeks after this she developed perforated diverticulitis: in June 2016-she underwent a sigmoid colectomy with end colostomy. Shortly after this she developed a parastomal hernia and required reoperation. After this she developed an abdominal dehiscence which required a washout. She has likely had her ventral hernia since shortly after recovery from these procedures in June 2016. In January 2022 she had an episode of pneumoperitoneum. A GI leak was not identified and she was managed conservatively without surgery. She has had problems with marginal ulcers (January 2023)-these were improved on her last upper endoscopy April 2023 Today she is about the same as usual. She is not having any abd pain. Her colostomy is functioning normally. She does have a tendency towards constipation- she uses Linzess and laxatives as needed. She has variable abd pains- discomforts- these vary in location and severity. Her weight is stable She is not having any GI bleeding or melena. She has no nausea or vomiting. SUBJECTIVE Review of Systems Constitutional: Negative. HENT: Negative. Eyes: Negative. Respiratory: Negative. Cardiovascular: Negative. Gastrointestinal: See HPI Genitourinary: Negative. Musculoskeletal: Negative. Skin: Negative. Endo/Heme/Allergies: Negative. Psychiatric/Behavioral: Negative. PAST MEDICAL HISTORY Diagnosis Date Adjustment disorder with depressed mood Asthma Essential hypertension, benign External hemorrhoids without mention of complication GERD (gastroesophageal reflux disease) Internal hemorrhoids without mention of complication Irritable bowel syndrome Overactive bladder PAST SURGICAL HISTORY Procedure Laterality Date CATARACT EXTRACTION HX Bilateral 2011 COLONOSCOPY 11/26/2006 EGD 10/2014 [place] EGD 12/27/2021 GJ anastomsis w/severe stenosis that was dilated AND hemorrhagic mucosa requiring Epi ANDhemostatic clips x7 LAP COLECTOMY, PART (ESTELLE TYPE PROC) for perforated sigmoid diverticulitis LAP PARTIAL GASTRECTOMY W RNY RECONSTRUC (COMP 47375) 2015 for hiatal hernia NASAL SURGERY PROCEDURE 02/24/2012 Bilateral total ethmoidectomy, bilateral maxillary antrostomy , right middle turbinectomy, septoplasty (Behzad Sharma MD, [facility]) PICC LINE INSERT/CONSULT 07/01/2016 REVISE TOTAL KNEE RE, ONE COMP Right 03/06/2010 complex revision to right total knee replacement -[facility] - Dr. Mcdonald SPLIT AGRFT T/A/L 1ST 100 CM/AND/1% BDY INFT/CHLD 12/25/2016 TONSILLECTOMY PRIMARY/SECONDARY Tonsillectomy TOTAL KNEE REPLACEMENT Bilateral 2002 bilateral knee replacement redo W PROBE PH CAPSULE DOWNEY W/DEL 10/2014 [place] Social History Tobacco Use Smoking status: Former Packs/day: 0.30 Years: 4.00 Additional pack years: 0.00 Total pack years: 1.20 Types: Cigarettes Quit date: 10/27/1965 Years since quittin.9 Smokeless tobacco: Never Tobacco comments: Few cigarettes daily, < 4 years. TO Vaping Use Vaping Use: Never used Substance Use Topics Alcohol use: No Drug use: No FAMILY HISTORY Problem Relation Age of Onset Cancer Father prostate with mets at 91 y/o Prostate Cancer Father Heart Mother Ischemic Heart Disease Mother 88 at 88 y/o Breast Cancer Sister breast- mastectomy at 92 y/o Cancer Sister lymphoma at 76 y/o Cancer Brother Urinary tract at 91 y/o Diabetes Brother None Sister s/p hip replacements ALLERGIES Allergen Reactions Levaquin [Levofloxa* Hives, Swelling, Itching Swelling of face and lips. Penicillins Hives, Intolerance Dilaudid [Hydromorp* Hives Oxycodone Mental Status Change Has been tolerating oxycodone during surgical recovery Current Outpatient Medications Medication Sig pantoprazole DR (PROTONIX) 40 mg tablet Take 1 tablet by mouth twice daily. oxybutynin (DITROPAN) 5 mg tablet Take 5 mg by mouth. linaclotide (LINZESS) 145 mcg capsule Take by mouth daily at 6 am. acetaminophen 650 mg CR tablet Take 650 mg by mouth every 8 hours as needed. albuterol (PROVENTIL) 2.5 mg /3 mL (0.083 %) nebulizer solution 3 mL every 4 hours as needed. Use one ampule via nebulizer every (more content not included)... [facility] 09-15-2023 History of Present illness Narrative Images from the original note were not included. Vi Lan MD General Surgery [facility], [address] [place], [place] [address] Patient referred by: Parisa Coleman 1 [facility] [address] [facility] [address] HPI Breanne Diehl is a 78 year old White female who presents for evaluation and management of a ventral hernia. She has a complicated abdominal history: In May 2016 she underwent a Mayra-en-Y gastric bypass with repair of a hiatal hernia. This was done due to severe reflux with pulmonary sequelae. It was not done for weight loss. Several weeks after this she developed perforated diverticulitis: in June 2016-she underwent a sigmoid colectomy with end colostomy. Shortly after this she developed a parastomal hernia and required reoperation. After this she developed an abdominal dehiscence which required a washout. She has likely had her ventral hernia since shortly after recovery from these procedures in June 2016. In January 2022 she had an episode of pneumoperitoneum. A GI leak was not identified and she was managed conservatively without surgery. She has had problems with marginal ulcers (January 2023)-these were improved on her last upper endoscopy April 2023 Today she is about the same as usual. She is not having any abd pain. Her colostomy is functioning normally. She does have a tendency towards constipation- she uses Linzess and laxatives as needed. She has variable abd pains- discomforts- these vary in location and severity. Her weight is stable She is not having any GI bleeding or melena. She has no nausea or vomiting. SUBJECTIVE Review of Systems Constitutional: Negative. HENT: Negative. Eyes: Negative. Respiratory: Negative. Cardiovascular: Negative. Gastrointestinal: See HPI Genitourinary: Negative. Musculoskeletal: Negative. Skin: Negative. Endo/Heme/Allergies: Negative. Psychiatric/Behavioral: Negative. PAST MEDICAL HISTORY Diagnosis Date Adjustment disorder with depressed mood Asthma Essential hypertension, benign External hemorrhoids without mention of complication GERD (gastroesophageal reflux disease) Internal hemorrhoids without mention of complication Irritable bowel syndrome Overactive bladder PAST SURGICAL HISTORY Procedure Laterality Date CATARACT EXTRACTION HX Bilateral 2012 COLONOSCOPY 11/26/2006 EGD 10/2014 [place] EGD 12/27/2021 GJ anastomsis w/severe stenosis that was dilated & hemorrhagic mucosa requiring Epi &hemostatic clips x7 LAP COLECTOMY, PART (ESTELLE TYPE PROC) for perforated sigmoid diverticulitis LAP PARTIAL GASTRECTOMY W RNY RECONSTRUC (COMP 84370) 2016 for hiatal hernia NASAL SURGERY PROCEDURE 02/24/2012 Bilateral total ethmoidectomy, bilateral maxillary antrostomy , right middle turbinectomy, septoplasty (Behzad Sharma MD, [facility]) PICC LINE INSERT/CONSULT 07/01/2016 REVISE TOTAL KNEE RE, ONE COMP Right 03/06/2010 complex revision to right total knee replacement -[facility] - Dr. Mcdonald SPLIT AGRFT T/A/L 1ST 100 CM/&/1% BDY INFT/CHLD 12/25/2016 TONSILLECTOMY PRIMARY/SECONDARY <AGE 11 1949 Tonsillectomy TOTAL KNEE REPLACEMENT Bilateral 2001 bilateral knee replacement redo W PROBE PH CAPSULE DOWNEY W/DEL 10/2014 [place] Social History Tobacco Use Smoking status: Former Packs/day: 0.30 Years: 4.00 Additional pack years: 0.00 Total pack years: 1.20 Types: Cigarettes Quit date: 10/27/1965 Years since quittin.9 Smokeless tobacco: Never Tobacco comments: Few cigarettes daily, < 4 years. TO Vaping Use Vaping Use: Never used Substance Use Topics Alcohol use: No Drug use: No FAMILY HISTORY Problem Relation Age of Onset Cancer Father prostate with mets at 91 y/o Prostate Cancer Father Heart Mother Ischemic Heart Disease Mother 88 at 88 y/o Breast Cancer Sister breast- mastectomy at 92 y/o Cancer Sister lymphoma at 76 y/o Cancer Brother Urinary tract at 91 y/o Diabetes Brother None Sister s/p hip replacements ALLERGIES Allergen Reactions Levaquin [Levofloxa* Hives, Swelling, Itching Swelling of face and lips. Penicillins Hives, Intolerance Dilaudid [Hydromorp* Hives Oxycodone Mental Status Change Has been tolerating oxycodone during surgical recovery Current Outpatient Medications Medication Sig pantoprazole DR (PROTONIX) 40 mg tablet Take 1 tablet by mouth twice daily. oxybutynin (DITROPAN) 5 mg tablet Take 5 mg by mouth. linaclotide (LINZESS) 145 mcg capsule Take by mouth daily at 6 am. acetaminophen 650 mg CR tablet Take 650 mg by mouth every 8 hours as needed. albuterol (PROVENTIL) 2.5 mg /3 mL (0.083 %) nebulizer solution 3 mL every 4 hours as needed. Use one ampule via nebulizer every 4 hours as needed for cough, wheezing, chest tightness or SOB albuterol HFA (PROVENTIL HFA) 90 mcg/actuation inhaler Inhale 2 Puffs as instructed every 4 hours as needed for Wheezing/Shortness of Breath. 2 PUFFS EVERY 4 HOURS NEEDED; MAY GIVE AVAILABLE EQUIVALENT ALBUTEROL HFA INHALER Vhmrpbbc-Gfvm-Mjj-Folic Acid (CENTRUM) 3,500-18-0.4 unit-mg-mg chewable tablet Take 1 tablet by mouth once daily. cyanocobalamin (VITAMIN B-12) 1,000 mcg tab Take 1 tablet by mouth once daily. sucralfate (CARAFATE) 1 gram tablet Take 1 tablet by mouth four times daily. (Patient not taking: Reported on 09/15/2023) apixaban (ELIQUIS) 5 mg tab(s) Take by mouth. (Patient not taking: Reported on 07/09/2023) nystatin (MYCOSTATIN) powder Apply 1 application to affected area three times daily. (Patient not taking: Reported on 09/15/2023) lafrbq-xaodmvta-dbzhzpk (ZENPEP) 40,000-126,000- 168,000 unit delayed release capsule Take 1 capsule by mouth twice daily with meals. (Patient not taking: Reported on 05/07/2023) dicyclomine (BENTYL) 20 mg tablet Take 20 mg by mouth as directed. (Patient not taking: Reported on 07/09/2023) iron bis-gly/FA/C/B12/Ca/succ (IRON-150 ORAL) Take by mouth. (Patient not taking: Reported on 01/08/2023) metoclopramide HCl (REGLAN) 5 mg tablet Take 5 mg by mouth twice daily. (Patient not taking: Reported on 05/03/2022) pantoprazole DR (PROTONIX) 40 mg tablet Take 1 tablet by mouth once daily. (Patient not taking: Reported on 07/09/2023) calcium citrate (CALCITRATE) 200 mg (950 mg) tab Take 1 tablet by mouth twice daily. (Patient not taking: Reported on 07/09/2023) docusate sodium (COLACE) 100 mg capsule Take 1 capsule by mouth twice daily. (Patient not taking: Reported on 01/08/2023) cholecalciferol (VITAMIN D3) 1,000 unit tab tablet Take 2 tablets by mouth once daily. (Patient not taking: Reported on 05/03/2022) No current facility-administered medications for this visit. OBJECTIVE BP 150/87 Pulse 65 Ht 149.9 cm (4' 11 ) Wt 47.6 kg (105 lb) BMI 21.21 kg/m BMI 21.21 kg/(m^2) Physical Exam Vitals reviewed. Constitutional: General: She is not in acute distress. Appearance: She is normal weight. She is not ill-appearing. HENT: Head: Normocephalic. Cardiovascular: Rate and Rhythm: Normal rate and regular rhythm. Heart sounds: Normal heart sounds. Pulmonary: Breath sounds: Normal breath sounds. Abdominal: General: Abdomen is flat. There is no distension. Palpations: Abdomen is soft. There is no mass. Tenderness: There is no abdominal tenderness. Hernia: A hernia is present. Comments: There is a large hernia in the central mid abdomen- The skin is severely stretched out over this but there are no ulcerations. The defect appears to be at least 12 cm vertically and 8 cm transversely It is easily reducible but protrudes when standing There is a left lower quadrant colostomy with firm light brown stool Skin: General: Skin is warm and dry. Neurological: General: No focal deficit present. Mental Status: She is alert. Psychiatric: Mood and Affect: Mood normal. Behavior: Behavior normal. Thought Content: Thought content normal. Hemoglobin (g/dL) Date Value 05/03/2022 9.7 08/02/2016 9.5 Hematocrit (%) Date Value 05/03/2022 32.2 08/02/2016 30.3 WBC (k/uL) Date Value 05/03/2022 6.14 08/02/2016 7.45 Platelet Count (k/uL) Date Value 05/03/2022 297 08/02/2016 480 Creatinine Date Value Ref Range Status 07/09/2023 0.57 (L) 0.58 - 0.96 mg/dL Final AST Date Value Ref Range Status 02/18/2022 47 (H) 13 - 35 U/L Final ALT Date Value Ref Range Status 02/18/2022 47 (H) 7 - 38 U/L Final Bilirubin, Total (mg/dL) Date Value 02/18/2022 0.2 Bilirubin, Conjugated (mg/dL) Date Value 02/18/2022 <0.2 ABO/RH(D) (no units) Date Value 07/31/2016 O POSITIVE Antibody Screen (no units) Date Value 07/31/2016 NEG WBC (k/uL) Date Value 05/03/2022 6.14 RBC (m/uL) Date Value 05/03/2022 4.23 %DIG,%DBS DATA: Diagnostic tests reviewed for today's visit: Most recent labs Most recent imaging Old operative notes Plan Assessment and Plan: Encounter Diagnosis ICD-10-CM 1. Ventral incisional hernia K43.2 2. 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) Z43.3 3. History of Mayra-en-Y gastric bypass Z98.84 (K43.2) Ventral incisional hernia (primary encounter diagnosis) Comment: She has a large central abdominal hernia This is likely been present since 2016 It is reducible but likely contributing to her abdominal symptoms Plan: Repair using mesh (Z43.3) 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) Comment: She had perforated diverticulitis in June 2016 She has not sought to have her colostomy reversed before but this seems to be something which is reasonable to consider Plan: Closure of the colostomy She will need a colonoscopy prior to this-she has not had a colonoscopy since before 2015 (Z98.84) History of Mayra-en-Y gastric bypass Comment: Done for severe reflux with pulmonary sequelae-May 2016 She has a history of marginal ulcers earlier this year-this is now stable and healed Plan: Continue current management The primary encounter diagnosis was Ventral incisional hernia. Diagnoses of 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) and History of Mayra-en-Y gastric bypass were also pertinent to this visit. (K43.2) Ventral incisional hernia (primary encounter diagnosis) (Z43.3) 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) (Z98.84) History of Mayra-en-Y gastric bypass Follow up: Return for post op visit. A total of 30 minutes was spent in direct patient contact. Greater than 50% of the direct patient contact time was spent in counseling or coordination of care. Please Note: This office note has been created using [employer], a speech recognition software program, and may contain errors including punctuation, grammar, spelling, gender, and inappropriate words or phrases that pertain to the sytem. documented in this encounter [facility] 07-30-2023 Note HNO ID: [id number] Author: Parisa Coleman MD Service: ? Author Type: Physician Type: Progress Notes Filed: 07/30/2023 2:51 PM Note Text: SURGICAL SERVICES HISTORY AND PHYSICAL EXAMINATION SERVICE DATE: 07/30/2023 SERVICE TIME: 2:31 PM PRIMARY CARE PHYSICIAN: Garret Coy MD SUBJECTIVE CHIEF COMPLAINT: abdominal pain HISTORY OF PRESENT ILLNESS: Ms. Diehl is a 78 year old female with a PMH of atrial fibrillation w/ RVR, HTN, GERD, CAD, COPD, depression, hiatal hernia, history of HHR w/ RYGB, and HLD who presents for follow up after recent testing and to discuss abdominal pain. Today she reports continued left upper quadrant pain and intermittent nausea. She has no further symptoms of emesis. Her ostomy is functioning without difficulty. She is eating her baseline amount which is normal for her s/p RYGB. Recent EGD demonstrated healed marginal ulcers. She continues taking both Carafate and Protonix. She feels that the Carafate is what causes abdominal pain - therefore she was instructed to stop use of the Carafate and continue use of Protonix. She presents to discuss CT scan findings - no acute findings were noted. CT Scan: No CT evidence of acute abnormality in the abdomen or pelvis. 2. Incidental findings include: Postsurgical changes from gastric bypass, status post Estelle procedure and left lower quadrant colostomy creation. Known central fascial defect and large ventral hernia containing nonobstructed bowel. Myomatous uterus. Nonobstructing left renal calculus versus vascular calcification. Per my previous clinic notes: The patient has been calling the office due to abdominal pain. I instructed her to present to the ER on these occasions, but each time she refused and requested to be seen in the office instead. Today she presents with concerns of left upper quadrant pain that is present constantly and is worse after eating. Tylenol and hemp drops help the pain. Bowel movements/ostomy function is good with stool and gas. She endorses nausea associated with the pain. Her weight is down to 101 pounds from previous 106 pounds. This pain all started about 1.5 weeks ago per her report. She denies exposure or use of any common ulcerogenic substances - NSAIDs, steroids, tobacco, SHS, etoh. She drinks daily caffeine On further discussion she states that she did not take the Carafate and Protonix as I had instructed her after the most recent EGD She has a history of marginal ulcer and after the EGD on 02/13/23 she was started on PPI/Carafate. I then followed up with repeat EGD on 05/22/23 at which time the marginal ulcers appeared healed. The mayra limb was noted to be unobstructed within the patient's large ventral hernia. She was continued on PPI and carafate due to her large gastric pouch. Per my previous clinic notes: The patient presented to me initially in consultation via referral from the EGS team after a recent hospitalization at [facility] from 02/09-02/19/22. She had presented as a direct admit from [facility]. She had presented to [facility] on 02/01/22 with severe abdominal pain and CT demonstrated pneumoperitoneum concerning for bowel perforation. Gastrografin study via [place] did not demonstrate leak. But repeat CT showed worsening pneumoperitoneum so a small bowel series was performed without any evidence of leak/abnormality. On 02/04 she was noted to have a LUQ abscess and kept on IV Zosyn and started on IV TPN. IR declined to place an IR drain due to her complex surgical history. Her course was then complicated by A-fib with RVR and ICU admission. She needed to undergo thoracentesis for parapneumonic effusion. Per the notes, the patient was weaned off of TPN and eventually discharged on a soft GI diet. Due to atrial fibrillation she was started on Eliquis. Patient's history is significant for laparoscopic PEHR and RYGB on 05/29/16. This was followed by an episode of perforated diverticulitis which resulted in ex lap with Estelle's procedure on 06/28/16. She then developed a small bowel obstruction due to a parastomal hernia and underwent ex lap and hernia repair on 07/05/16. Then on 07/16/16 she was found to have evisceration and underwent laparotomy/washout and closed with vicryl mesh placement. PAST MEDICAL HISTORY: PAST MEDICAL HISTORY Diagnosis Date Adjustment disorder with depressed mood Asthma Essential hypertension, benign External hemorrhoids without mention of complication GERD (gastroesophageal reflux disease) Internal hemorrhoids without mention of complication Irritable bowel syndrome Overactive bladder PAST SURGICAL HISTORY: PAST SURGICAL HISTORY Procedure Laterality Date CATARACT EXTRACTION HX Bilateral 2012 COLONOSCOPY 11/26/2006 EGD 10/2014 [place] EGD 12/27/2021 GJ anastomsis w/severe stenosis that was dilated AND hemorrhagic mucosa requiring Epi ANDhemostatic clips x7 LAP COLECTOMY, PART (ESTELLE (more content not included)... [facility] 07-30-2023 History of Present illness Narrative SURGICAL SERVICES HISTORY AND PHYSICAL EXAMINATION SERVICE DATE: 07/30/2023 SERVICE TIME: 2:31 PM PRIMARY CARE PHYSICIAN: Garret Coy MD SUBJECTIVE CHIEF COMPLAINT: abdominal pain HISTORY OF PRESENT ILLNESS: Ms. Diehl is a 78 year old female with a PMH of atrial fibrillation w/ RVR, HTN, GERD, CAD, COPD, depression, hiatal hernia, history of HHR w/ RYGB, and HLD who presents for follow up after recent testing and to discuss abdominal pain. Today she reports continued left upper quadrant pain and intermittent nausea. She has no further symptoms of emesis. Her ostomy is functioning without difficulty. She is eating her baseline amount which is normal for her s/p RYGB. Recent EGD demonstrated healed marginal ulcers. She continues taking both Carafate and Protonix. She feels that the Carafate is what causes abdominal pain - therefore she was instructed to stop use of the Carafate and continue use of Protonix. She presents to discuss CT scan findings - no acute findings were noted. CT Scan: No CT evidence of acute abnormality in the abdomen or pelvis. 2. Incidental findings include: Postsurgical changes from gastric bypass, status post Estelle procedure and left lower quadrant colostomy creation. Known central fascial defect and large ventral hernia containing nonobstructed bowel. Myomatous uterus. Nonobstructing left renal calculus versus vascular calcification. Per my previous clinic notes: The patient has been calling the office due to abdominal pain. I instructed her to present to the ER on these occasions, but each time she refused and requested to be seen in the office instead. Today she presents with concerns of left upper quadrant pain that is present constantly and is worse after eating. Tylenol and hemp drops help the pain. Bowel movements/ostomy function is good with stool and gas. She endorses nausea associated with the pain. Her weight is down to 101 pounds from previous 106 pounds. This pain all started about 1.5 weeks ago per her report. She denies exposure or use of any common ulcerogenic substances - NSAIDs, steroids, tobacco, SHS, etoh. She drinks daily caffeine On further discussion she states that she did not take the Carafate and Protonix as I had instructed her after the most recent EGD She has a history of marginal ulcer and after the EGD on 02/13/23 she was started on PPI/Carafate. I then followed up with repeat EGD on 05/22/23 at which time the marginal ulcers appeared healed. The mayra limb was noted to be unobstructed within the patient's large ventral hernia. She was continued on PPI and carafate due to her large gastric pouch. Per my previous clinic notes: The patient presented to me initially in consultation via referral from the EGS team after a recent hospitalization at [facility] from 02/09-02/19/22. She had presented as a direct admit from [facility]. She had presented to [facility] on 02/01/22 with severe abdominal pain and CT demonstrated pneumoperitoneum concerning for bowel perforation. Gastrografin study via [place] did not demonstrate leak. But repeat CT showed worsening pneumoperitoneum so a small bowel series was performed without any evidence of leak/abnormality. On 02/04 she was noted to have a LUQ abscess and kept on IV Zosyn and started on IV TPN. IR declined to place an IR drain due to her complex surgical history. Her course was then complicated by A-fib with RVR and ICU admission. She needed to undergo thoracentesis for parapneumonic effusion. Per the notes, the patient was weaned off of TPN and eventually discharged on a soft GI diet. Due to atrial fibrillation she was started on Eliquis. Patient's history is significant for laparoscopic PEHR and RYGB on 05/29/16. This was followed by an episode of perforated diverticulitis which resulted in ex lap with Estelle's procedure on 06/28/16. She then developed a small bowel obstruction due to a parastomal hernia and underwent ex lap and hernia repair on 07/05/16. Then on 07/16/16 she was found to have evisceration and underwent laparotomy/washout and closed with vicryl mesh placement. PAST MEDICAL HISTORY: PAST MEDICAL HISTORY Diagnosis Date Adjustment disorder with depressed mood Asthma Essential hypertension, benign External hemorrhoids without mention of complication GERD (gastroesophageal reflux disease) Internal hemorrhoids without mention of complication Irritable bowel syndrome Overactive bladder PAST SURGICAL HISTORY: PAST SURGICAL HISTORY Procedure Laterality Date CATARACT EXTRACTION HX Bilateral 2012 COLONOSCOPY 11/26/2006 EGD 10/2014 [place] EGD 12/27/2021 GJ anastomsis w/severe stenosis that was dilated & hemorrhagic mucosa requiring Epi &hemostatic clips x7 LAP COLECTOMY, PART (ESTELLE TYPE PROC) for perforated sigmoid diverticulitis LAP PARTIAL GASTRECTOMY W RNY RECONSTRUC (COMP 09915) 2015 for hiatal hernia NASAL SURGERY PROCEDURE 02/24/2012 Bilateral total ethmoidectomy, bilateral maxillary antrostomy , right middle turbinectomy, septoplasty (Behzad Sharma MD, [facility]) PICC LINE INSERT/CONSULT 07/01/2016 REVISE TOTAL KNEE RE, ONE COMP Right 03/06/2010 complex revision to right total knee replacement -[facility] - Dr. Mcdonald SPLIT AGRFT T/A/L 1ST 100 CM/&/1% BDY INFT/CHLD 12/25/2016 TONSILLECTOMY PRIMARY/SECONDARY <AGE 11 1949 Tonsillectomy TOTAL KNEE REPLACEMENT Bilateral 2001 bilateral knee replacement redo W PROBE PH CAPSULE DOWNEY W/DEL 10/2014 [place] FAMILY HISTORY: FAMILY HISTORY Problem Relation Age of Onset Cancer Father prostate with mets at 91 y/o Prostate Cancer Father Heart Mother Ischemic Heart Disease Mother 88 at 88 y/o Breast Cancer Sister breast- mastectomy at 92 y/o Cancer Sister lymphoma at 76 y/o Cancer Brother Urinary tract at 91 y/o Diabetes Brother None Sister s/p hip replacements SOCIAL HISTORY: Social History Tobacco Use Smoking status: Former Packs/day: 0.30 Years: 4.00 Additional pack years: 0.00 Total pack years: 1.20 Types: Cigarettes Quit date: 10/27/1965 Years since quittin.7 Smokeless tobacco: Never Tobacco comments: Few cigarettes daily, < 4 years. TO Vaping Use Vaping Use: Never used Substance Use Topics Alcohol use: No Drug use: No MEDICATIONS: Current Outpatient Medications Medication Sig sucralfate (CARAFATE) 1 gram tablet Take 1 tablet by mouth four times daily. nystatin (MYCOSTATIN) powder Apply 1 application to affected area three times daily. oxybutynin (DITROPAN) 5 mg tablet Take 5 mg by mouth. acetaminophen 650 mg CR tablet Take 650 mg by mouth every 8 hours as needed. albuterol (PROVENTIL) 2.5 mg /3 mL (0.083 %) nebulizer solution 3 mL every 4 hours as needed. Use one ampule via nebulizer every 4 hours as needed for cough, wheezing, chest tightness or SOB albuterol HFA (PROVENTIL HFA) 90 mcg/actuation inhaler Inhale 2 Puffs as instructed every 4 hours as needed for Wheezing/Shortness of Breath. 2 PUFFS EVERY 4 HOURS NEEDED; MAY GIVE AVAILABLE EQUIVALENT ALBUTEROL HFA INHALER Utwfkifc-Ljrt-Vur-Folic Acid (CENTRUM) 3,500-18-0.4 unit-mg-mg chewable tablet Take 1 tablet by mouth once daily. apixaban (ELIQUIS) 5 mg tab(s) Take by mouth. (Patient not taking: Reported on 07/09/2023) pantoprazole DR (PROTONIX) 40 mg tablet Take 1 tablet by mouth twice daily. vdkrfh-shdpujkm-wjjwdij (ZENPEP) 40,000-126,000- 168,000 unit delayed release capsule Take 1 capsule by mouth twice daily with meals. (Patient not taking: Reported on 05/07/2023) dicyclomine (BENTYL) 20 mg tablet Take 20 mg by mouth as directed. (Patient not taking: Reported on 07/09/2023) iron bis-gly/FA/C/B12/Ca/succ (IRON-150 ORAL) Take by mouth. (Patient not taking: Reported on 01/08/2023) metoclopramide HCl (REGLAN) 5 mg tablet Take 5 mg by mouth twice daily. (Patient not taking: Reported on 05/03/2022) linaclotide (LINZESS) 145 mcg capsule Take by mouth DAILY (6 AM). (Patient not taking: Reported on 05/07/2023) pantoprazole DR (PROTONIX) 40 mg tablet Take 1 tablet by mouth once daily. (Patient not taking: Reported on 07/09/2023) calcium citrate (CALCITRATE) 200 mg (950 mg) tab Take 1 tablet by mouth twice daily. (Patient not taking: Reported on 07/09/2023) docusate sodium (COLACE) 100 mg capsule Take 1 capsule by mouth twice daily. (Patient not taking: Reported on 01/08/2023) cyanocobalamin (VITAMIN B-12) 1,000 mcg tab Take 1 tablet by mouth once daily. (Patient not taking: Reported on 07/09/2023) cholecalciferol (VITAMIN D3) 1,000 unit tab tablet Take 2 tablets by mouth once daily. (Patient not taking: Reported on 05/03/2022) No current facility-administered medications for this visit. ALLERGIES: ALLERGIES Allergen Reactions Levaquin [Levofloxa* Hives, Swelling, Itching Swelling of face and lips. Penicillins Hives, Intolerance Dilaudid [Hydromorp* Hives Oxycodone Mental Status Change Has been tolerating oxycodone during surgical recovery COMPLETE REVIEW OF SYSTEMS: Review of Systems Constitutional: Negative for chills, diaphoresis, fever and malaise/fatigue. HENT: Negative for congestion, hearing loss, nosebleeds, sinus pain, sore throat and tinnitus. Eyes: Negative for blurred vision, double vision, pain and redness. Respiratory: Negative for cough, hemoptysis, sputum production, shortness of breath and wheezing. Cardiovascular: Negative for chest pain, palpitations, orthopnea, leg swelling and PND. Gastrointestinal: Positive for abdominal pain and nausea. Negative for blood in stool, constipation, diarrhea, heartburn and vomiting. Genitourinary: Negative for dysuria, frequency, hematuria and urgency. Musculoskeletal: Negative for back pain, falls, joint pain, myalgias and neck pain. Skin: Negative for itching and rash. Neurological: Negative for dizziness, speech change, focal weakness, seizures, loss of consciousness, weakness and headaches. Endo/Heme/Allergies: Does not bruise/bleed easily. Psychiatric/Behavioral: Negative for depression, hallucinations, memory loss, substance abuse and suicidal ideas. The patient is not nervous/anxious and does not have insomnia. OBJECTIVE PHYSICAL EXAM: BP 129/84 Pulse 74 Ht 4' 10 (1.47m) Wt 105 lb 6.4 oz (47.8kg) BMI 22.03 kg/(m^2). Physical Exam Vitals reviewed. Constitutional: Appearance: Normal appearance. HENT: Head: Normocephalic and atraumatic. Eyes: General: No scleral icterus. Extraocular Movements: Extraocular movements intact. Conjunctiva/sclera: Conjunctivae normal. Pupils: Pupils are equal, round, and reactive to light. Pulmonary: Effort: Pulmonary effort is normal. No respiratory distress. Abdominal: General: There is no distension. Palpations: Abdomen is soft. There is no mass. Comments: Known parastomal hernia; ostomy functioning Neurological: General: No focal deficit present. Mental Status: She is alert and oriented to person, place, and time. Psychiatric: Mood and Affect: Mood normal. Behavior: Behavior normal. DATA: Diagnostic tests reviewed for today's visit: EMR reviewed Plan ASSESSMENT AND PLAN Breanne Diehl is a 78 year old female with a PMH as noted above who presents with abdominal pain and to follow up after recent CT scan. 1. Left upper quadrant pain - ICD9: 789.02, ICD10: R10.12 (primary diagnosis) - CT scan and previous testing reviewed with pt in clinic today. I do not see an acute cause of her pain on CT scan. EGD most recently demonstrated healed marginal ulcers. Stop use of Carafate as she states she experiences abdominal pain immediately after taking it. - Some of her pain does sound to be related to the parastomal hernia - endorses increased LUQ abdominal pain when vacuuming and performing other activities that involve the core muscles - will refer her to Dr. Lan of general surgery for further consultation. - I do NOT believe her current LUQ pain to be related to her previous bariatric surgery 2. Parastomal hernia without obstruction or gangrene - ICD9: 569.69, ICD10: K43.5 - Some of her pain does sound to be related to the parastomal hernia - endorses increased LUQ abdominal pain when vacuuming and performing other activities that involve the core muscles - CONSULT TO GENERAL SURGERY 3. History of Mayra-en-Y gastric bypass - ICD9: V45.86, ICD10: Z98.84 - Discussed importance of following a bariatric compliant diet given her abdominal pain that is sometimes post-prandial. Discussed eating small meals, not overeating, and chewing her food well 4. Marginal ulcer - ICD9: 534.90, ICD10: K28.9 - She has a history of marginal ulcers; the most recent EGD demonstrated resolution of the previous marginal ulcers. - Due to the abdominal pain feeling worse after taking Carafate I have instructed her to stop use of Carafate and use only PPI - Again reviewed the importance of avoiding all ulcerogenic substances. Medical Decision Making: Problems: Moderate: 2+ stable chronic illnesses Data: Unique test result(s) reviewed: 1 Discussed management or test w/ external physician/QHCP/source Risk: Moderate: Drug management Medical Decision Making Level: 4 - Moderate SIGNATURE: Parisa Coleman MD PATIENT NAME: Breanne Diehl DATE: July 30, 2023 TIME: 2:31 PM PAGER/CONTACT #: [phone] documented in this encounter [facility] 07-09-2023 Note HNO ID: [id number] Author: Sophia Hood, RT(R) Service: ? Author Type: Production Underwriter Type: Progress Notes Filed: 07/09/2023 3:52 PM Note Text: Radiology Service Progress Note DATE OF SERVICE: July 09, 2023 TIME: 3:51 PM PATIENT IDENTITY VERIFICATION COMPLETED USING TWO (2) STANDARD IDENTIFIERS: Name and Date of confirmed by patient verbally. FALL SCREENING: Has the patient had 2 falls in the last year or 1 fall with injury or currently using an Ambulatory Assistive Device (Walker, Cane, Wheelchair, Crutches, etc.)? No PATIENT GENDER DATA: Female. status: : No status: NO. PATIENT RELEVANT IMPLANT DATA REVIEWED: Yes ALLERGIES: Reviewed and unchanged CONTRAST ALLERGY: NO. EXAM: CT -CONTRAST INDUCED NEPHROPATHY RISK FACTORS: Patient age > 60 years CREATININE: Creatinine Date Value Ref Range Status 07/09/2023 0.57 (L) 0.58 - 0.96 mg/dL Final 05/03/2022 0.61 0.58 - 0.96 mg/dL Final 02/18/2022 0.59 0.58 - 0.96 mg/dL Final Estimated Glomerular Filtration Rate Date Value Ref Range Status 07/09/2023 93 >=60 mL/min/1.73m? Final Comment: Estimated Glomerular Filtration Rate (eGFR) is calculated using the 2020 CKD-EPI creatinine equation. This equation utilizes serum creatinine, sex, and age as parameters. The creatinine assay has traceable calibration to isotope dilution-mass spectrometry. Refer to KDIGO guidelines for clinical interpretation. In patients with unstable renal function, e.g. those with acute kidney injury, the eGFR may not accurately reflect actual GFR. eGFR- Date Value Ref Range Status 08/01/2016 >60 Final P.O.C.T. RESULTS: POC done: Yes, See Lab Tab July 09, 2023 TREATMENT: N/A PERIPHERAL IV DATA: Ambulatory: A peripheral IV was started in the Left hand with a Angio cath: 22 gauge. RADIOLOGY DEPARTMENT: CT; Exam(s) Completed: Abdomen/Pelvis SIGNATURE: RT Ovi(R) PATIENT NAME: Breanne Diehl DATE: July 09, 2023 TIME: 3:51 PM [facility] 07-09-2023 Note HNO ID: [id number] Author: Parisa Coleman MD Service: ? Author Type: Physician Type: Progress Notes Filed: 07/09/2023 10:27 AM Note Text: SURGICAL SERVICES HISTORY AND PHYSICAL EXAMINATION SERVICE DATE: 07/09/2023 SERVICE TIME: 10:03 AM PRIMARY CARE PHYSICIAN: Garret Coy MD SUBJECTIVE CHIEF COMPLAINT: history of marginal ulcer HISTORY OF PRESENT ILLNESS: Ms. Diehl is a 78 year old female with a PMH of atrial fibrillation w/ RVR, HTN, GERD, CAD, COPD, depression, hiatal hernia, history of HHR s/ RYGB, and HLD who presents for follow up after recent EGD and to discuss abdominal pain. The patient has been calling the office due to abdominal pain. I instructed her to present to the ER on these occasions, but each time she refused and requested to be seen in the office instead. Today she presents with concerns of left upper quadrant pain that is present constantly and is worse after eating. Tylenol and hemp drops help the pain. Bowel movements/ostomy function is good with stool and gas. She endorses nausea associated with the pain. Her weight is down to 101 pounds from previous 106 pounds. This pain all started about 1.5 weeks ago per her report. She denies exposure or use of any common ulcerogenic substances - NSAIDs, steroids, tobacco, SHS, etoh. She drinks daily caffeine On further discussion she states that she did not take the Carafate and Protonix as I had instructed her after the most recent EGD She has a history of marginal ulcer and after the EGD on 02/13/23 she was started on PPI/Carafate. I then followed up with repeat EGD on 05/22/23 at which time the marginal ulcers appeared healed. The mayra limb was noted to be unobstructed within the patient's large ventral hernia. She was continued on PPI and carafate due to her large gastric pouch. Per my previous clinic notes: The patient presented to me initially in consultation via referral from the EGS team after a recent hospitalization at [facility] from 02/09-02/19/22. She had presented as a direct admit from [facility]. She had presented to [facility] on 02/01/22 with severe abdominal pain and CT demonstrated pneumoperitoneum concerning for bowel perforation. Gastrografin study via [place] did not demonstrate leak. But repeat CT showed worsening pneumoperitoneum so a small bowel series was performed without any evidence of leak/abnormality. On 02/04 she was noted to have a LUQ abscess and kept on IV Zosyn and started on IV TPN. IR declined to place an IR drain due to her complex surgical history. Her course was then complicated by A-fib with RVR and ICU admission. She needed to undergo thoracentesis for parapneumonic effusion. Per the notes, the patient was weaned off of TPN and eventually discharged on a soft GI diet. Due to atrial fibrillation she was started on Eliquis. Patient's history is significant for laparoscopic PEHR and RYGB on 05/29/16. This was followed by an episode of perforated diverticulitis which resulted in ex lap with Estelle's procedure on 06/28/16. She then developed a small bowel obstruction due to a parastomal hernia and underwent ex lap and hernia repair on 07/05/16. Then on 07/16/16 she was found to have evisceration and underwent laparotomy/washout and closed with vicryl mesh placement. PAST MEDICAL HISTORY: PAST MEDICAL HISTORY Diagnosis Date Adjustment disorder with depressed mood Asthma Essential hypertension, benign External hemorrhoids without mention of complication GERD (gastroesophageal reflux disease) Internal hemorrhoids without mention of complication Irritable bowel syndrome Overactive bladder PAST SURGICAL HISTORY: PAST SURGICAL HISTORY Procedure Laterality Date CATARACT EXTRACTION HX Bilateral 2011 COLONOSCOPY 11/26/2006 EGD 10/2014 [place] 12/27/2021 GJ anastomsis w/severe stenosis that was dilated AND hemorrhagic mucosa requiring Epi ANDhemostatic clips x7 LAP COLECTOMY, PART (ESTELLE TYPE PROC) for perforated sigmoid diverticulitis LAP PARTIAL GASTRECTOMY W RNY RECONSTRUC (COMP 14035) 2016 for hiatal hernia NASAL SURGERY PROCEDURE 02/24/2012 Bilateral total ethmoidectomy, bilateral maxillary antrostomy , right middle turbinectomy, septoplasty (Behzad Sharma MD, [facility]) PICC LINE INSERT/CONSULT 07/01/2016 REVISE TOTAL KNEE RE, ONE COMP Right 03/06/2010 complex revision to right total knee replacement -[facility] - Dr. Mcdonald SPLIT AGRFT T/A/L 1ST 100 CM/AND/1% BDY INFT/CHLD 12/25/2016 TONSILLECTOMY PRIMARY/SECONDARY Tonsillectomy TOTAL KNEE REPLACEMENT Bilateral 2001 bilateral knee replacement redo W PROBE PH CAPSULE DOWNEY W/DEL 10/2014 [place] FAMILY HISTORY: FAMILY HISTORY Problem Relation Age of Onset Cancer Father prostate with mets at 91 y/o Prostate Cancer Father Heart Mother Ischemic Heart Disease Mother 88 at 88 y/o Breast Cancer Sister breast- mastectomy (more content not included)... [facility] 07-09-2023 Miscellaneous Notes Addended by: PARISA COLEMAN on: 07/09/2023 10:31 AM Modules accepted: Orders documented in this encounter [facility] 07-09-2023 History of Present illness Narrative Images from the original note were not included. SURGICAL SERVICES HISTORY AND PHYSICAL EXAMINATION SERVICE DATE: 07/09/2023 SERVICE TIME: 10:03 AM PRIMARY CARE PHYSICIAN: Garret Coy MD SUBJECTIVE CHIEF COMPLAINT: history of marginal ulcer HISTORY OF PRESENT ILLNESS: Ms. Diehl is a 78 year old female with a PMH of atrial fibrillation w/ RVR, HTN, GERD, CAD, COPD, depression, hiatal hernia, history of HHR s/ RYGB, and HLD who presents for follow up after recent EGD and to discuss abdominal pain. The patient has been calling the office due to abdominal pain. I instructed her to present to the ER on these occasions, but each time she refused and requested to be seen in the office instead. Today she presents with concerns of left upper quadrant pain that is present constantly and is worse after eating. Tylenol and hemp drops help the pain. Bowel movements/ostomy function is good with stool and gas. She endorses nausea associated with the pain. Her weight is down to 101 pounds from previous 106 pounds. This pain all started about 1.5 weeks ago per her report. She denies exposure or use of any common ulcerogenic substances - NSAIDs, steroids, tobacco, SHS, etoh. She drinks daily caffeine On further discussion she states that she did not take the Carafate and Protonix as I had instructed her after the most recent EGD She has a history of marginal ulcer and after the EGD on 02/13/23 she was started on PPI/Carafate. I then followed up with repeat EGD on 05/22/23 at which time the marginal ulcers appeared healed. The mayra limb was noted to be unobstructed within the patient's large ventral hernia. She was continued on PPI and carafate due to her large gastric pouch. Per my previous clinic notes: The patient presented to me initially in consultation via referral from the EGS team after a recent hospitalization at [facility] from 02/09-02/19/22. She had presented as a direct admit from [facility]. She had presented to [facility] on 02/01/22 with severe abdominal pain and CT demonstrated pneumoperitoneum concerning for bowel perforation. Gastrografin study via [place] did not demonstrate leak. But repeat CT showed worsening pneumoperitoneum so a small bowel series was performed without any evidence of leak/abnormality. On 02/04 she was noted to have a LUQ abscess and kept on IV Zosyn and started on IV TPN. IR declined to place an IR drain due to her complex surgical history. Her course was then complicated by A-fib with RVR and ICU admission. She needed to undergo thoracentesis for parapneumonic effusion. Per the notes, the patient was weaned off of TPN and eventually discharged on a soft GI diet. Due to atrial fibrillation she was started on Eliquis. Patient's history is significant for laparoscopic PEHR and RYGB on 05/29/16. This was followed by an episode of perforated diverticulitis which resulted in ex lap with Estelle's procedure on 06/28/16. She then developed a small bowel obstruction due to a parastomal hernia and underwent ex lap and hernia repair on 07/05/16. Then on 07/16/16 she was found to have evisceration and underwent laparotomy/washout and closed with vicryl mesh placement. PAST MEDICAL HISTORY: PAST MEDICAL HISTORY Diagnosis Date Adjustment disorder with depressed mood Asthma Essential hypertension, benign External hemorrhoids without mention of complication GERD (gastroesophageal reflux disease) Internal hemorrhoids without mention of complication Irritable bowel syndrome Overactive bladder PAST SURGICAL HISTORY: PAST SURGICAL HISTORY Procedure Laterality Date CATARACT EXTRACTION HX Bilateral 2011 COLONOSCOPY 11/26/2006 EGD 10/2014 [place] 12/27/2021 GJ anastomsis w/severe stenosis that was dilated & hemorrhagic mucosa requiring Epi &hemostatic clips x7 LAP COLECTOMY, PART (ESTELLE TYPE PROC) for perforated sigmoid diverticulitis LAP PARTIAL GASTRECTOMY W RNY RECONSTRUC (COMP 18678) 2015 for hiatal hernia NASAL SURGERY PROCEDURE 02/24/2012 Bilateral total ethmoidectomy, bilateral maxillary antrostomy , right middle turbinectomy, septoplasty (Behzad Sharma MD, [facility]) PICC LINE INSERT/CONSULT 07/01/2016 REVISE TOTAL KNEE RE, ONE COMP Right 03/06/2010 complex revision to right total knee replacement -[facility] - Dr. Mcdonald SPLIT AGRFT T/A/L 1ST 100 CM/&/1% BDY INFT/CHLD 12/25/2016 TONSILLECTOMY PRIMARY/SECONDARY <AGE 11 1949 Tonsillectomy TOTAL KNEE REPLACEMENT Bilateral 2001 bilateral knee replacement redo W PROBE PH CAPSULE DOWNEY W/DEL 10/2014 [place] FAMILY HISTORY: FAMILY HISTORY Problem Relation Age of Onset Cancer Father prostate with mets at 91 y/o Prostate Cancer Father Heart Mother Ischemic Heart Disease Mother 88 at 88 y/o Breast Cancer Sister breast- mastectomy at 92 y/o Cancer Sister lymphoma at 76 y/o Cancer Brother Urinary tract at 91 y/o Diabetes Brother None Sister s/p hip replacements SOCIAL HISTORY: Social History Tobacco Use Smoking status: Former Packs/day: 0.30 Years: 4.00 Additional pack years: 0.00 Total pack years: 1.20 Types: Cigarettes Quit date: 10/27/1965 Years since quittin.7 Smokeless tobacco: Never Tobacco comments: Few cigarettes daily, < 4 years. TO Vaping Use Vaping Use: Never used Substance Use Topics Alcohol use: No Drug use: No MEDICATIONS: Current Outpatient Medications Medication Sig apixaban (ELIQUIS) 5 mg tab(s) Take by mouth. sucralfate (CARAFATE) 1 gram tablet Take 1 g by mouth four times daily. nystatin (MYCOSTATIN) powder Apply 1 application to affected area three times daily. pantoprazole DR (PROTONIX) 40 mg tablet Take 1 tablet by mouth twice daily. fbjrgg-fswquawu-jrdloxo (ZENPEP) 40,000-126,000- 168,000 unit delayed release capsule Take 1 capsule by mouth twice daily with meals. (Patient not taking: Reported on 05/07/2023) dicyclomine (BENTYL) 20 mg tablet Take 20 mg by mouth as directed. oxybutynin (DITROPAN) 5 mg tablet Take 5 mg by mouth. iron bis-gly/FA/C/B12/Ca/succ (IRON-150 ORAL) Take by mouth. (Patient not taking: Reported on 01/08/2023) metoclopramide HCl (REGLAN) 5 mg tablet Take 5 mg by mouth twice daily. (Patient not taking: Reported on 05/03/2022) linaclotide (LINZESS) 145 mcg capsule Take by mouth DAILY (6 AM). (Patient not taking: Reported on 05/07/2023) acetaminophen 650 mg CR tablet Take 650 mg by mouth every 8 hours as needed. pantoprazole DR (PROTONIX) 40 mg tablet Take 1 tablet by mouth once daily. albuterol (PROVENTIL) 2.5 mg /3 mL (0.083 %) nebulizer solution 3 mL every 4 hours as needed. Use one ampule via nebulizer every 4 hours as needed for cough, wheezing, chest tightness or SOB albuterol HFA (PROVENTIL HFA) 90 mcg/actuation inhaler Inhale 2 Puffs as instructed every 4 hours as needed for Wheezing/Shortness of Breath. 2 PUFFS EVERY 4 HOURS NEEDED; MAY GIVE AVAILABLE EQUIVALENT ALBUTEROL HFA INHALER calcium citrate (CALCITRATE) 200 mg (950 mg) tab Take 1 tablet by mouth twice daily. docusate sodium (COLACE) 100 mg capsule Take 1 capsule by mouth twice daily. (Patient not taking: Reported on 01/08/2023) Gmyjifgt-Ytcz-Jmi-Folic Acid (CENTRUM) 3,500-18-0.4 unit-mg-mg chewable tablet Take 1 tablet by mouth once daily. cyanocobalamin (VITAMIN B-12) 1,000 mcg tab Take 1 tablet by mouth once daily. cholecalciferol (VITAMIN D3) 1,000 unit tab tablet Take 2 tablets by mouth once daily. (Patient not taking: Reported on 05/03/2022) No current facility-administered medications for this visit. ALLERGIES: ALLERGIES Allergen Reactions Levaquin [Levofloxa* Hives, Swelling, Itching Swelling of face and lips. Penicillins Hives, Intolerance Dilaudid [Hydromorp* Hives Oxycodone Mental Status Change Has been tolerating oxycodone during surgical recovery COMPLETE REVIEW OF SYSTEMS: Review of Systems Gastrointestinal: Positive for abdominal pain, nausea and vomiting. All other systems reviewed and are negative. OBJECTIVE PHYSICAL EXAM: Ht 4' 10 (1.47m) Physical Exam Vitals reviewed. Constitutional: Appearance: Normal appearance. HENT: Head: Normocephalic and atraumatic. Nose: Nose normal. Eyes: General: No scleral icterus. Extraocular Movements: Extraocular movements intact. Conjunctiva/sclera: Conjunctivae normal. Pupils: Pupils are equal, round, and reactive to light. Cardiovascular: Rate and Rhythm: Normal rate. Pulmonary: Effort: Pulmonary effort is normal. Abdominal: General: Abdomen is flat. Bowel sounds are normal. Palpations: Abdomen is soft. Comments: Functioning ostomy; central fascial defect is reducible. Mild tenderness only to very deep LUQ palpation Skin: General: Skin is warm and dry. Coloration: Skin is not jaundiced or pale. Neurological: General: No focal deficit present. Mental Status: She is alert and oriented to person, place, and time. Psychiatric: Mood and Affect: Mood normal. Behavior: Behavior normal. DATA: Diagnostic tests reviewed for today's visit: EMR reviewed Plan ASSESSMENT AND PLAN Breanne Diehl is a 78 year old female with a PMH as noted above who presents with abdominal pain. ASSESSMENT/PLAN: 1. Left upper quadrant abdominal pain - ICD9: 789.02, ICD10: R10.12 (primary diagnosis) - Due to new LUQ pain I will obtain CT abd/pelvis to rule out issues with remnant stomach/colon. In the meantime I will also have her resume Carafate and PPI which she has not been taking. - CREATININE BLD - CT ABD/PEL W IVCON 2. Marginal ulcer - ICD9: 534.90, ICD10: K28.9 - She has a history of marginal ulcers which were resolved at the last EGD, but today she reports that she did not continue the Carafate and PPI has I had instructed after the EGD. Due to her very large gastric pouch size I am concerned that the marginal ulcer has recurred due to the nature of her pain. I have prescribed Carafate to her and sent to her pharmacy 3. History of Mayra-en-Y gastric bypass - ICD9: V45.86, ICD10: Z98.84 - As above in #2 4. Parastomal hernia without obstruction or gangrene - ICD9: 569.69, ICD10: K43.5 - Ostomy is functioning with stool and gas output. I do believe she does have a portion of the mayra limb within the hernia at times, because I witnessed transillumination of the endoscope within the mayra limb. We discussed hernia repair, but at this time she wishes to undergo CT scan and further workup instead. If she wishes the hernia be repaired, I informed her that I do not perform these type of hernia repairs and I will refer her to a hernia specialist here at [facility]. She endorses understanding. Medical Decision Making: Problems: Moderate: New problem with uncertain prognosis and 2+ stable chronic illnesses Data: Unique test result(s) reviewed: 2 Unique test(s) ordered: 3+ Discussed management or test w/ external physician/QHCP/source Risk: Moderate: Drug management Medical Decision Making Level: 4 - Moderate SIGNATURE: Parisa Coleman MD PATIENT NAME: Breanne Diehl DATE: July 09, 2023 TIME: 10:03 AM PAGER/CONTACT #: [phone] documented in this encounter [facility] 07-01-2023 Miscellaneous Notes I would not recommend any medication, but I do recommend that she wear a binder or other device around the hernia/bulge to help with the discomfort. I believe her discomfort may be secondary to the hernia she has. I called and let the patient know and she is going to look into getting one. Brielle Vargas Ma Patient called in stating she is having increased discomfort on her left side and wants to know if there is something she can take to help? She is scheduled to follow up with you on 07/23/23. Brielle Vargas Ma documented in this encounter [facility] 05-22-2023 History and physical note HISTORY AND PHYSICAL EXAMINATION SERVICE DATE: 05/22/2023 SERVICE TIME: 1:04 PM PRIMARY CARE PHYSICIAN: Garret Coy Chi REASON FOR VISIT: The reason for this visit is To perform a comprehensive review of the patients past medical history, assess their current health status and obtain any additional testing required based on anesthesia guidelines. To assess and identify potential anesthesia problems, particularly those that may suggest potential complications or contraindications to the planned procedure. The patient has the following: ACTIVE PROBLEM LIST Essential Hypertension, Benign Hld (Hyperlipidemia) Adjustment Disorder With Depressed Mood Bronchiectasis With Acute Exacerbation (Hcc) Thoracic Or Lumbosacral Neuritis Or Radiculitis, Unspecified Lung Nodule Severe Persistent Asthma Bronchiectasis (Hcc) Allergic Rhinitis, Cause Unspecified Acid Reflux Disease Dysphonia Overactive Bladder Chronic Cough Fracture of [...] Evisceration Pseudomonas Infection Status Post Skin Graft History of Mayra-En-Y Gastric Bypass Gastrojejunal Anastomotic Stricture Peritoneal Abscess (Hcc) Ventral Incisional Hernia Other Specified Anemias Other Dysphagia Pre-Op Exam Pulmonary Htn (Hcc) Subjective CHIEF COMPLAINT: Preoperative Examination HPI: Patient present to [facility] for the above procedure. Patient here for routine Upper GI Endoscopy screening. Pt hx of gastric ulscers from GERD. Patient denies any N/V/D or constipation. Denies any abdominal pain. Denies any melena, hematochezia, or hematemesis. Patient denies any other problems at this time. Denies any family history of Colon cancer or other Gastric ca. Patient agreed to planned procedure. METS: Climb a flight of stairs or walk up a hill (5.50 METs) Patient denies any CP/SOB with above activity. PAST MEDICAL HISTORY Diagnosis Date Adjustment disorder with depressed mood Asthma Essential hypertension, benign External hemorrhoids without mention of complication GERD (gastroesophageal reflux disease) Internal hemorrhoids without mention of complication Irritable bowel syndrome Overactive bladder PAST SURGICAL HISTORY Procedure Laterality Date CATARACT EXTRACTION HX Bilateral 2011 COLONOSCOPY 11/26/2006 EGD 10/2014 [place] EGD 12/27/2021 GJ anastomsis w/severe stenosis that was dilated & hemorrhagic mucosa requiring Epi &hemostatic clips x7 LAP COLECTOMY, PART (ESTELLE TYPE PROC) for perforated sigmoid diverticulitis LAP PARTIAL GASTRECTOMY W RNY RECONSTRUC (COMP 54015) 2015 for hiatal hernia NASAL SURGERY PROCEDURE 02/24/2012 Bilateral total ethmoidectomy, bilateral maxillary antrostomy , right middle turbinectomy, septoplasty (Behzad Sharma MD, [facility]) PICC LINE INSERT/CONSULT 07/01/2016 REVISE TOTAL KNEE RE, ONE COMP Right 03/06/2010 complex revision to right total knee replacement -[facility] - Dr. Mcdonald SPLIT AGRFT T/A/L 1ST 100 CM/&/1% BDY INFT/CHLD 12/25/2016 TONSILLECTOMY PRIMARY/SECONDARY <AGE 11 1949 Tonsillectomy TOTAL KNEE REPLACEMENT Bilateral 2001 bilateral knee replacement redo W PROBE PH CAPSULE DOWNEY W/DEL 10/2014 [place] FAMILY HISTORY Problem Relation Age of Onset Cancer Father prostate with mets at 91 y/o Prostate Cancer Father Heart Mother Ischemic Heart Disease Mother 88 at 88 y/o Breast Cancer Sister breast- mastectomy at 92 y/o Cancer Sister lymphoma at 76 y/o Cancer Brother Urinary tract at 91 y/o Diabetes Brother None Sister s/p hip replacements SOCIAL HISTORY: Social History Tobacco Use Smoking status: Former Packs/day: 0.30 Years: 4.00 Total pack years: 1.20 Types: Cigarettes Quit date: 10/27/1965 Years since quittin.6 Smokeless tobacco: Never Tobacco comments: Few cigarettes daily, < 4 years. TO Vaping Use Vaping Use: Never used Substance Use Topics Alcohol use: No Drug use: No Prior to Admission medications as of 05/22/23 1313 Medication Sig Last Dose Taking apixaban (ELIQUIS) 5 mg tab(s) Take by mouth. Yes sucralfate (CARAFATE) 1 gram tablet Take 1 g by mouth four times daily. 05/21/2023 Yes oxybutynin (DITROPAN) 5 mg tablet Take 5 mg by mouth. 05/21/[address] (PROTONIX) 40 mg tablet Take 1 tablet by mouth once daily. 05/21/2023 Yes Hidswiwx-Nniv-Abp-Folic Acid (CENTRUM) 3,500-18-0.4 unit-mg-mg chewable tablet Take 1 tablet by mouth once daily. 05/21/2023 Yes cyanocobalamin (VITAMIN B-12) 1,000 mcg tab Take 1 tablet by mouth once daily. 05/21/2023 Yes nystatin (MYCOSTATIN) powder Apply 1 application to affected area three times daily. pantoprazole DR (PROTONIX) 40 mg tablet Take 1 tablet by mouth twice daily. umoirh-ucvgiryg-kmigcxd (ZENPEP) 40,000-126,000- 168,000 unit delayed release capsule Take 1 capsule by mouth twice daily with meals. Patient not taking: Reported on 05/07/2023 dicyclomine (BENTYL) 20 mg tablet Take 20 mg by mouth as directed. iron bis-gly/FA/C/B12/Ca/succ (IRON-150 ORAL) Take by mouth. Patient not taking: Reported on 01/08/2023 metoclopramide HCl (REGLAN) 5 mg tablet Take 5 mg by mouth twice daily. Patient not taking: Reported on 05/03/2022 linaclotide (LINZESS) 145 mcg capsule Take by mouth DAILY (6 AM). Patient not taking: Reported on 05/07/2023 acetaminophen 650 mg CR tablet Take 650 mg by mouth every 8 hours as needed. Unknown albuterol (PROVENTIL) 2.5 mg /3 mL (0.083 %) nebulizer solution 3 mL every 4 hours as needed. Use one ampule via nebulizer every 4 hours as needed for cough, wheezing, chest tightness or SOB Unknown albuterol HFA (PROVENTIL HFA) 90 mcg/actuation inhaler Inhale 2 Puffs as instructed every 4 hours as needed for Wheezing/Shortness of Breath. 2 PUFFS EVERY 4 HOURS NEEDED; MAY GIVE AVAILABLE EQUIVALENT ALBUTEROL HFA INHALER Unknown calcium citrate (CALCITRATE) 200 mg (950 mg) tab Take 1 tablet by mouth twice daily. docusate sodium (COLACE) 100 mg capsule Take 1 capsule by mouth twice daily. Patient not taking: Reported on 01/08/2023 cholecalciferol (VITAMIN D3) 1,000 unit tab tablet Take 2 tablets by mouth once daily. Patient not taking: Reported on 05/03/2022 No medication comments found. ALLERGIES Allergen Reactions Levaquin [Levofloxa* Hives, Swelling, Itching Swelling of face and lips. Penicillins Hives, Intolerance Dilaudid [Hydromorp* Hives Oxycodone Mental Status Change Has been tolerating oxycodone during surgical recovery REVIEW OF SYSTEMS: PAIN ASSESSMENT: General: Denies fever, chills, and unexpected weight change. Neuro: Denies dizziness and headaches. Respiratory: Denies SOB. Cardiovascular: Denies CP and palpitations. GI: See HPI. : Denies dysuria. Endocrine: No history of diabetes or thyroid conditions. Hematology: Denies history of bleeding or clotting disorder. No known autoimmune disorders. Psych: Denies anxiety/depression. Musculoskeletal: Denies joint pain and swelling. Skin: Denies open sores and rashes. Objective PHYSICAL EXAM: VITALS: See nursing flowsheet. General: NAD. Cooperative. Skin: Skin is warm, no rashes, and no open sores. HEENT: Normocephalic. Cardiovascular: Normal S1 & S2. 3/6 murmur heard. Lungs: CTA Bilaterally. No respiratory distress. Abdomen: Soft. Pos BS x4quad Extremities: No edema. Neurological: Alert and oriented to person, place, and time. Pulses: radial pulses +2 Diagnostic tests reviewed for today's visit: Lab Value Units Date High Low HB No results within date range. HCT No results within date range. WBC No results within date range. PLT No results within date range. NA No results within date range. K No results within date range. GLUC No results within date range. BUN No results within date range. CREAT No results within date range. PTSEC No results within date range. INR No results within date range. APTT No results within date range. ALT No results within date range. AST No results within date range. TBILI No results within date range. TSH No results within date range. Lab Value Units Date High Low HCGQT No results within date range. UHCG No results within date range. HCG, BODY* No results within date range. Lab Value Units Date High Low ABORHD No results within date range. ABSCREEN No results within date range. Hemoglobin A1C (%) Date Value 02/26/2013 6.1 HBA1C, [place] (%) Date Value 04/14/2012 5.7 Assessment/Plan Patient has the following medical conditions which may affect inez-operative course Problem List Items Addressed This Visit Cardiovascular Essential hypertension, benign Current Assessment & Plan No medications. HLD (hyperlipidemia) Overview 05/2010 done with good control. Current Assessment & Plan Diet controlled. Atrial fibrillation (HCC) Current Assessment & Plan Pt states she may have had this in the past but denies any current issues. Heart failure with reduced ejection fraction (HCC) Current Assessment & Plan ECHO shown below. EF 38. Pulmonary HTN (HCC) Current Assessment & Plan RVSP 65. Echo shown below. Pulmonary 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) Current Assessment & Plan Albuterol. Pt uses rescue inhaler less than 1x per month. Pt denies hospitalization in last year. Gastrointestinal Acid reflux disease Current Assessment & Plan Pantoprazole 40mg. Continue as prescribed. Other Pre-op exam - Primary Current Assessment & Plan Please see A&P for list of pertinent health issues. Other Visit Diagnoses Marginal ulcer Relevant Orders EGD DIAGNOSTIC Card Cath 07/03/16 Conclusions: normal coronary artereis. The cause of her troponin elevation may be demand. The cause of her decreased ejection fraction may be a stress cardiomyopathy or idiopathic non-ischemic cardiomyopathy. ECHO 07/02/16 CONCLUSIONS: - Technically difficult exam due to suboptimal positioning and body habitus. - Exam indication: Abnormal ECG - The left ventricle is normal in size. Left ventricular systolic function is moderately decreased. EF = 38 5% (2D biplane) Baseline left ventricular diastolic function is consistent with abnormal relaxation (stage 1). Resting wall motion abnormality noted in the distribution of the LAD. - The right ventricle is normal in size. Right ventricular systolic function is low normal. - The left atrial cavity is mildly dilated. - MV gradients obtained at a HR of 70 bpm. Moderate MAC. Trivial to 1+ MR. Mean gradient 3 mmHg. - There is moderate (2+) tricuspid valve regurgitation. - Estimated right ventricular systolic pressure is 65 mmHg consistent with moderate pulmonary hypertension. Estimated right atrial pressure is 10 mmHg. - Exam was compared with the prior CC echocardiographic exam performed on 06/04/2011. Interval reduction in LV systolic function, new resting wall motion abnormality noted on the current study. TR more prominent on the current study, estimated RVSP is higher on the current study. I reviewed the pt last ECHO with Dr. Villagran. Diagnosis: Marginal ulcer [K28.9] Planned Procedure: EGD The Following Tests/Procedures Have Been Initiated: IV start and Maintenance fluid for the procedure. ANESTHESIA FINDINGS: Significant Anesthesia Considerations: None Planned Anesthetic: MAC I spent a total of 15 minutes on the date of the service which included preparing to see the patient, [id number] patient care, completing clinical documentation, performing a medically appropriate examination, and counseling and educating the patient/family/caregiver. Instructions Given to Patient: Patient given verbal preop instructions and voices comprehension and compliance. SIGNATURE: JUAN Baltazar PATIENT NAME: Breanne Diehl DATE: May 22, 2023 TIME: 12:24 PM PAGER/CONTACT #: documented in this encounter [facility] 05-22-2023 Surgical operation note OPERATIVE/PROCEDURE REPORT LOG ID: [id number] Surgery/Procedure Date: Incision/Procedure Start Time: 2:30 PM Incision Close/Procedure End Time: 2:35 PM Surgeon(s)/Proceduralist(s) and Rubberizing Mechanic(s): Surgeon(s) and Role: * Parisa Coleman MD - Proceduralist No Additional Staff Procedure(s): Esophagogastroduodenoscopy (EGD) Anesthesia: * No anesthesia type entered * Pre-Op/Pre-Procedure Diagnosis: 1. History of RYGB 2. History of marginal ulcer Post-Op/Post-Procedure Diagnosis: 1. History of RYGB 2. History of marginal ulcer - now appear healed 3. Mayra limb noted within abdominal ventral hernia bulge during procedure - scope transilluminated hernia skin Operative Findings: Diagnostic EGD demonstrated healing of previous marginal ulcer, very large gastric pouch, and presence of unobstructed mayra limb within the patient's ventral hernia Operative Indication: Breanne Diehl is a 78 year old female who presents for upper endoscopy. We discussed the risks, benefits, alternatives, and potential complications, and the patient agreed to proceed. Procedure Details: A safety huddle was performed in the endoscopy suite; nursing, surgical, and anesthesia teams were present and in agreement of the patient name, date of , MRN, allergies, and procedure to be performed. The patient was then placed in the left lateral decubitus position and given local anesthetic to the oropharynx. The anesthesia team provided sedation. The front viewing endoscope was introduced through the mouth under direct vision and advanced to the gastric pouch and then through the jejunal mayra limb and the blind loop of the candy cane. The diagnostic EGD was performed without difficulty. The z-line was noted to be at 37 cm from the incisors and the diaphragmatic hiatus at 37 cm. The pouch appeared pink and healthy in appearance. It measured from 37 cm to 43 cm for a length of 6 cm. However, the transverse diameter was noted to be quite large - so large that I could easily retroflex the scope. The mayra limb was followed down approximately 30 cm and noted to be normal. However, during the scope I noted that there was transillumination of the scope through the skin of the ventral abdominal hernia. The limb was not obstructed. I then with sharif the scope from the mayra limb back into the gastric pouch. I again very carefully examined the gastric pouch and the gastrojejunal anastomosis and even irrigated the anastomosis to verify there was no residual marginal ulcer. We encountered no abnormality and no marginal ulcer. The patient tolerated the procedure well. she was then transferred to the recovery area in good condition. There were no apparent complications. Estimated Blood Loss: minimal Specimens: 1. Gastric pouch Implantable Devices: none Recommendations: continue PPI or Carafate due to the very large pouch size Complications: None I performed the entire procedure SIGNATURE: Parisa Coleman MD PATIENT NAME: Breanne Diehl DATE: May 22, 2023 TIME: 2:41 PM PAGER/CONTACT #: documented in this encounter [facility] 05-07-2023 Note HNO ID: [id number] Author: Parisa Coleman MD Service: ? Author Type: Physician Type: Progress Notes Filed: 05/07/2023 12:28 PM Note Text: SURGICAL SERVICES HISTORY AND PHYSICAL EXAMINATION SERVICE DATE: 05/07/2023 SERVICE TIME: 12:07 PM PRIMARY CARE PHYSICIAN: Garret Coy Chi SUBJECTIVE CHIEF COMPLAINT: history of marginal ulcer; follow up HISTORY OF PRESENT ILLNESS: Ms. Diehl is a 78 year old female with a PMH of atrial fibrillation w/ RVR, HTN, GERD, CAD, COPD, depression, hiatal hernia, history of HHR s/ RYGB, and HLD who presents in follow up due to difficulty with oral intake. At her last clinic visit I recommended an UGI and EGD. EGD demonstrated marginal ulcers and she was started on Carafate and PPI on 02/13/23. She states that since starting Carafate and Protonix the previous dysphagia did improve. However, she does continue with nausea after eating - she does not think this is due to overeat as she shares a meal with her and she often cannot eat all of her half of the meal. She states that if she bends over after eating she may regurgitate liquid. She denies nicotine exposure and no second hand smoke. She denies use of NSAIDs or steroids. She uses only tylenol. She drinks a cup of coffee each AM and drinks wine once weekly in the evening. Workup: - UGI (02/11/23): Postoperative changes of gastric bypass surgery. No evidence of ulceration or erosion. No evidence of leak. Patent gastrojejunostomy - EGD (02/13/23): marginal ulcers - Pathology: Oxyntic type gastric mucosa with mild chronic inactive gastritis. No morphologic evidence of H. pylori organisms identified on TOLU sections Per my last clinic note: The patient states that she again began to experience difficulty swallowing and also with abdominal cramping in September. She was started on dicyclomine and this helps the symptoms of abdominal cramping. She stated at her last clinic visit that she believes her marginal ulcer has returned. She endorses intermittent difficulty swallowing (mostly just large pills) and has some nausea, which occurs once weekly. Denies emesis. She endorses intermittent left sided pain. She takes PRN protonix about twice weekly She had been hospitalized at [facility] from 02/09-02/19/22. She had presented as a direct admit from [facility]. She had presented to [facility] on 02/01/22 with severe abdominal pain and CT demonstrated pneumoperitoneum concerning for bowel perforation. Gastrografin study via [place] did not demonstrate leak. But repeat CT showed worsening pneumoperitoneum so a small bowel series was performed without any evidence of leak/abnormality. On 02/04 she was noted to have a LUQ abscess and kept on IV Zosyn and started on IV TPN. IR declined to place an IR drain due to her complex surgical history. Her course was then complicated by A-fib with RVR and ICU admission. She needed to undergo thoracentesis for parapneumonic effusion. Per the notes, the patient was weaned off of TPN and eventually discharged on a soft GI diet. Due to atrial fibrillation she was started on Eliquis. Patient's history is significant for laparoscopic PEHR and RYGB on 05/29/16. This was followed by an episode of perforated diverticulitis which resulted in ex lap with Estelle's procedure on 06/28/16. She then developed a small bowel obstruction due to a parastomal hernia and underwent ex lap and hernia repair on 07/05/16. Then on 07/16/16 she was found to have evisceration and underwent laparotomy/washout and closed with vicryl mesh placement PAST MEDICAL HISTORY: PAST MEDICAL HISTORY Diagnosis Date Adjustment disorder with depressed mood Asthma Essential hypertension, benign External hemorrhoids without mention of complication GERD (gastroesophageal reflux disease) Internal hemorrhoids without mention of complication Irritable bowel syndrome Overactive bladder PAST SURGICAL HISTORY: PAST SURGICAL HISTORY Procedure Laterality Date CATARACT EXTRACTION HX Bilateral 2012 COLONOSCOPY 11/26/2006 EGD 10/2014 [place] EGD 12/27/2021 GJ anastomsis w/severe stenosis that was dilated AND hemorrhagic mucosa requiring Epi ANDhemostatic clips x7 LAP COLECTOMY, PART (ESTELLE TYPE PROC) for perforated sigmoid diverticulitis LAP PARTIAL GASTRECTOMY W RNY RECONSTRUC (COMP 17624) 2016 for hiatal hernia NASAL SURGERY PROCEDURE 02/24/2012 Bilateral total ethmoidectomy, bilateral maxillary antrostomy , right middle turbinectomy, septoplasty (Behzad Sharma MD, [facility]) PICC LINE INSERT/CONSULT 07/01/2016 REVISE TOTAL KNEE RE, ONE COMP Right 03/06/2010 complex revision to right total knee replacement -[facility] - Dr. Mcdonald SPLIT AGRFT T/A/L 1ST 100 CM/AND/1% BDY INFT/CHLD 12/25/2016 TONSILLECTOMY PRIMARY/SECONDARY Tonsillectomy TOTAL KNEE REPLACEMENT Bilateral 2001 bilateral knee replacement redo W PROBE PH CAPSULE DOWNEY W/DEL 10/2014 D (more content not included)... [facility] 05-07-2023 Miscellaneous Notes EGD scheduled for 05/22/2023 at 2:30 pm. Prep/instructions given to patient at checkout. Antonella Hackett MA documented in this encounter [facility] 03-27-2023 Miscellaneous Notes Called back PT no answer LVM Per Monfared: Thanks for following up, she needs to stay hydrated and if she has concerns, she can go see her PCP. PT return missed call and advised she is barely eating anything at this point and she had not had any sugar/card foods. And doesn't feel this is issue. Re-review Monfared's recommendations for viral infection in the bowl with PT. PT explain that this had been going on since Friday. She feels this should be cleared by now. Called back PT no answer LVM about PT concerns with watery diarrhea Per Monfared. Please let her know- Watery diarrhea may be caused from high sugar/carb diet with dumping syndrome. She needs to reduce all her carbs, spread out her meals to small meals 6 times a day and wait 30 minutes between eating and drinking water to avoid dumping syndrome. She may also have had a viral infection in her bowels, which will get better on its own. We do not prescribe anti- diarrheal medications. The diarrhea needs to run its course and once her diet is improved, it should get better. PT LVM requesting help about experiencing watery diarrhea. PT advised she has used over the counter medications and this has not work. PT asked what she do. documented in this encounter [facility] 02-13-2023 Note HNO ID: [id number] Author: Monique Branch APRN.CNP Service: Anesthesiology Author Type: Nurse Practitioner Type: Progress Notes Filed: 02/13/2023 12:15 PM Note Text: ---- Summary: HANDP ---- HISTORY AND PHYSICAL EXAMINATION SERVICE DATE: 02/13/2023 SERVICE TIME: 1215 PRIMARY CARE PHYSICIAN: Garret Coy MD REASON FOR VISIT: The reason for this visit is To perform a comprehensive review of the patients past medical history, assess their current health status and obtain any additional testing required based on anesthesia guidelines. To assess and identify potential anesthesia problems, particularly those that may suggest potential complications or contraindications to the planned procedure. 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 Positive dysphagia and abd cramping. Dicyclomine has been helping with abd cramping. History of abd ulcer- patient believes has returned. Patient has been having a hard time swallowing large pills and food. Intermittent nausea- maybe once a wk. Denies emesis. Pantoprazole most mornings. History of RYGB in 2016. EGD discussed with Dr. Coleman, patient agreed. Left side pain 6-7/10- under ribs. Intermittent cramp. Pain for about a year- patient believes it's my ulcer. Some relief with dicyclomine. Poor historian. Unsure of medication names. 12/27/2022 EGD: GJ anastomsis w/severe stenosis that was dilated AND hemorrhagic mucosa requiring Epi ANDhemostatic clips x7 - [place], History Significant history of Dr. Coleman's last office note 01/08/2023: The patient presents in consultation via referral from the EGS team after a recent hospitalization at [facility] from 02/09-02/19/22. She had presented as a direct admit from [facility]. She had presented to [facility] on 02/01/22 with severe abdominal pain and CT demonstrated pneumoperitoneum concerning for bowel perforation. Gastrografin study via [place] did not demonstrate leak. But repeat CT showed worsening pneumoperitoneum so a small bowel series was performed without any evidence of leak/abnormality. On 02/04 she was noted to have a LUQ abscess and kept on IV Zosyn and started on IV TPN. IR declined to place an IR drain due to her complex surgical history. Her course was then complicated by A-fib with RVR and ICU admission. She needed to undergo thoracentesis for parapneumonic effusion. Per the notes, the patient was weaned off of TPN and eventually discharged on a soft GI diet. Due to atrial fibrillation she was started on Eliquis. Patient's history is significant for laparoscopic PEHR and RYGB on 05/29/16. This was followed by an episode of perforated diverticulitis which resulted in ex lap with Estelle's procedure on 06/28/16. She then developed a small bowel obstruction due to a parastomal hernia and underwent ex lap and hernia repair on 07/05/16. Then on 07/16/16 she was found to have evisceration and underwent laparotomy/washout and closed with vicryl mesh placement. METS: Climb a flight of stairs or walk up a hill (5.50 METs) Patient denies any CP/SOB with above activity. PAST MEDICAL HISTORY Diagnosis Date Adjustment disorder with depressed mood Asthma Essential hypertension, benign External hemorrhoids without mention of complication GERD (gastroesophag (more content not included)... [facility] 02-13-2023 Surgical operation note OPERATIVE/PROCEDURE REPORT LOG ID: [id number] Surgery/Procedure Date: Incision/Procedure Start Time: 1:19 PM Incision Close/Procedure End Time: 1:24 PM Surgeon(s)/Proceduralist(s) and Rubberizing Mechanic(s): * No surgeons found in log * No Additional Staff PREOPERATIVE DIAGNOSIS: 1. History of RYGB 2. Dysphagia 3. Abdominal pain POSTOPERATIVE DIAGNOSIS: 1. History of RYGB 2. Dysphagia 3. Abdominal pain 4. Marginal ulcers COMPLICATIONS: None. Procedure(s): 1. Esophagogastroduodenoscopy (EGD) with cold forceps biopsies of the gastric pouch Anesthesia: * No anesthesia type entered * MAC by Anesthesiology without complications Operative Findings: Diagnostic EGD demonstrated marginal ulcers Operative Indication: Breanne Diehl is a 78 year old female who presents for EGD due to dysphagia and abdominal pain in the setting of a history of RYGB. We discussed the risks, benefits, alternatives, and potential complications, and the patient agreed to proceed. Procedure Details: The patient was brought to the endoscopic suite in stable condition. The preprocedural checklist was completed to the satisfaction of the entire team and verified with the patient. We had previously completed the consent process after discussing the risks and benefits of the procedure, which included, but were not limited to, the risk of hemorrhage, need for blood transfusion, and the possibility of perforation. Once she was induced by Anesthesia and appropriately sedated, the Olympus gastroscope was entered through the mouth. I was easily able to intubate the esophagus. The esophageal portion of the examination was positive for a slightly tortuous esophagus but, otherwise, was within normal limits. The Z-line was measured at 35 centimeters from the bite protector. The diaphragmatic hiatus was measured at 35-cm from the bite protector. I then entered the gastric pouch, which was pink and healthy in appearance. The pouch measured 5 cm in length with the gastrojejunal anastomosis at 40 cm. The anastomosis was easily traversed with the endoscope without resistance. There was evidence of healing marginal ulcers on the jejunal side of the anastomosis. I then intubated the candy cane and the mayra limb and followed the mayra limb down an additional 20 cm - that part of the procedure was within normal limits. Once back in the gastric pouch, I then performed 6 separate cold forceps biopsies in the gastric pouch to be sent for H.pylori. This was done with minimal bleeding. I ensured we had good hemostasis. Gastric insufflation was removed using suction. The gastroscope was removed through the mouth. The patient tolerated the procedure very well and was returned to recovery room in stable condition. Recommendations: PPI BID and Carafate QID x 8 weeks Estimated Blood Loss: minimal Specimens: 1. Gastric pouch Implantable Devices: none Drains: None Complications: None I performed the procedure independently SIGNATURE: Parisa Coleman MD PATIENT NAME: Breanne Diehl DATE: February 13, 2023 TIME: 1:26 PM PAGER/CONTACT #: documented in this encounter [facility] 02-13-2023 History of Present illness Narrative Summary: H&P HISTORY AND PHYSICAL EXAMINATION SERVICE DATE: 02/13/2023 SERVICE TIME: 1215 PRIMARY CARE PHYSICIAN: Garret Coy MD REASON FOR VISIT: The reason for this visit is To perform a comprehensive review of the patients past medical history, assess their current health status and obtain any additional testing required based on anesthesia guidelines. To assess and identify potential anesthesia problems, particularly those that may suggest potential complications or contraindications to the planned procedure. 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 Positive dysphagia and abd cramping. Dicyclomine has been helping with abd cramping. History of abd ulcer- patient believes has returned. Patient has been having a hard time swallowing large pills and food. Intermittent nausea- maybe once a wk. Denies emesis. Pantoprazole most mornings. History of RYGB in 2016. EGD discussed with Dr. Coleman, patient agreed. Left side pain 6-7/10- under ribs. Intermittent cramp. Pain for about a year- patient believes it's my ulcer. Some relief with dicyclomine. Poor historian. Unsure of medication names. 12/27/2022 EGD: GJ anastomsis w/severe stenosis that was dilated & hemorrhagic mucosa requiring Epi &hemostatic clips x7 - [place], History Significant history of Dr. Coleman's last office note 01/08/2023: The patient presents in consultation via referral from the EGS team after a recent hospitalization at [facility] from 02/09-02/19/22. She had presented as a direct admit from [facility]. She had presented to [facility] on 02/01/22 with severe abdominal pain and CT demonstrated pneumoperitoneum concerning for bowel perforation. Gastrografin study via [place] did not demonstrate leak. But repeat CT showed worsening pneumoperitoneum so a small bowel series was performed without any evidence of leak/abnormality. On 02/04 she was noted to have a LUQ abscess and kept on IV Zosyn and started on IV TPN. IR declined to place an IR drain due to her complex surgical history. Her course was then complicated by A-fib with RVR and ICU admission. She needed to undergo thoracentesis for parapneumonic effusion. Per the notes, the patient was weaned off of TPN and eventually discharged on a soft GI diet. Due to atrial fibrillation she was started on Eliquis. Patient's history is significant for laparoscopic PEHR and RYGB on 05/29/16. This was followed by an episode of perforated diverticulitis which resulted in ex lap with Estelle's procedure on 06/28/16. She then developed a small bowel obstruction due to a parastomal hernia and underwent ex lap and hernia repair on 07/05/16. Then on 07/16/16 she was found to have evisceration and underwent laparotomy/washout and closed with vicryl mesh placement. METS: Climb a flight of stairs or walk up a hill (5.50 METs) Patient denies any CP/SOB with above activity. PAST MEDICAL HISTORY Diagnosis Date Adjustment disorder with depressed mood Asthma Essential hypertension, benign External hemorrhoids without mention of complication GERD (gastroesophageal reflux disease) Internal hemorrhoids without mention of complication Irritable bowel syndrome Overactive bladder PAST SURGICAL HISTORY Procedure Laterality Date CATARACT EXTRACTION HX Bilateral 2012 COLONOSCOPY 11/26/2006 EGD 10/2014 [place] EGD 12/27/2021 GJ anastomsis w/severe stenosis that was dilated & hemorrhagic mucosa requiring Epi &hemostatic clips x7 LAP COLECTOMY, PART (ESTELLE TYPE PROC) for perforated sigmoid diverticulitis LAP PARTIAL GASTRECTOMY W RNY RECONSTRUC (COMP 81889) 2016 for hiatal hernia NASAL SURGERY PROCEDURE 02/24/2012 Bilateral total ethmoidectomy, bilateral maxillary antrostomy , right middle turbinectomy, septoplasty (Behzad Sharma MD, [facility]) PICC LINE INSERT/CONSULT 07/01/2016 REVISE TOTAL KNEE RE, ONE COMP Right 03/06/2010 complex revision to right total knee replacement -[facility] - Dr. Mcdonald SPLIT AGRFT T/A/L 1ST 100 CM/&/1% BDY INFT/CHLD 12/25/2016 TONSILLECTOMY PRIMARY/SECONDARY <AGE 11 1949 Tonsillectomy TOTAL KNEE REPLACEMENT Bilateral 2002 bilateral knee replacement redo W PROBE PH CAPSULE DOWNEY W/DEL 10/2014 [place] FAMILY HISTORY Problem Relation Age of Onset Cancer Father prostate with mets at 91 y/o Prostate Cancer Father Heart Mother Ischemic Heart Disease Mother 88 at 88 y/o Breast Cancer Sister breast- mastectomy at 92 y/o Cancer Sister lymphoma at 76 y/o Cancer Brother Urinary tract at 91 y/o Diabetes Brother None Sister s/p hip replacements SOCIAL HISTORY: Social History Tobacco Use Smoking status: Former Packs/day: 0.30 Years: 4.00 Pack years: 1.20 Types: Cigarettes Quit date: 10/27/1965 Years since quittin.3 Smokeless tobacco: Never Tobacco comments: Few cigarettes daily, < 4 years. TO Substance Use Topics Alcohol use: No Drug use: No Prior to Admission medications as of 01/08/23 1506 Medication Sig Last Dose Taking dicyclomine (BENTYL) 20 mg tablet Take 20 mg by mouth as directed. 02/12/2023 at as needed Yes oxybutynin (DITROPAN) 5 mg tablet Take 5 mg by mouth. 02/12/2023 Yes calcium citrate (CALCITRATE) 200 mg (950 mg) tab Take 1 tablet by mouth twice daily. 02/12/2023 Yes Bhpispbz-Okqe-Dzw-Folic Acid (CENTRUM) 3,500-18-0.4 unit-mg-mg chewable tablet Take 1 tablet by mouth once daily. 02/12/2023 Yes cyanocobalamin (VITAMIN B-12) 1,000 mcg tab Take 1 tablet by mouth once daily. 02/12/2023 Yes pafntm-ubxxntfs-guzieit (ZENPEP) 40,000-126,000- 168,000 unit delayed release capsule Take 1 capsule by mouth twice daily with meals. iron bis-gly/FA/C/B12/Ca/succ (IRON-150 ORAL) Take by mouth. Patient not taking: Reported on 01/08/2023 sucralfate (CARAFATE) 1 gram tablet Take 1 g by mouth twice daily. Patient not taking: No sig reported 02/09/2023 metoclopramide HCl (REGLAN) 5 mg tablet Take 5 mg by mouth twice daily. Patient not taking: No sig reported linaclotide (LINZESS) 145 mcg capsule Take by mouth DAILY (6 AM). Unknown acetaminophen 650 mg CR tablet Take 650 mg by mouth every 8 hours as needed. Unknown at as needed albuterol (PROVENTIL) 2.5 mg /3 mL (0.083 %) nebulizer solution 3 mL every 4 hours as needed. Use one ampule via nebulizer every 4 hours as needed for cough, wheezing, chest tightness or SOB Unknown at as needed albuterol HFA (PROVENTIL HFA) 90 mcg/actuation inhaler Inhale 2 Puffs as instructed every 4 hours as needed for Wheezing/Shortness of Breath. 2 PUFFS EVERY 4 HOURS NEEDED; MAY GIVE AVAILABLE EQUIVALENT ALBUTEROL HFA INHALER Unknown at as needed metoprolol tartrate, short acting, (LOPRESSOR) 25 mg tablet Take 1 tablet by mouth every 12 hours. topical moisturizing lotion (LUBRIDERM DAILY) Apply 1 application to affected area as needed for Dry Skin. docusate sodium (COLACE) 100 mg capsule Take 1 capsule by mouth twice daily. Patient not taking: Reported on 01/08/2023 cholecalciferol (VITAMIN D3) 1,000 unit tab tablet Take 2 tablets by mouth once daily. Patient not taking: No sig reported No medication comments found. ALLERGIES Allergen Reactions Levaquin [Levofloxa* Hives, Swelling, Itching Swelling of face and lips. Penicillins Hives, Intolerance Dilaudid [Hydromorp* Hives Oxycodone Mental Status Change Has been tolerating oxycodone during surgical recovery REVIEW OF SYSTEMS: PAIN ASSESSMENT: Pain Pain Level: 0 Pain Assessment: Assessment Tool: Verbal (Numeric Rating or Visual Analog Scale) General: Denies fever, chills. Lost 5 pounds in the pat 6 months. Neuro: Denies dizziness and headaches. Respiratory: Denies SOB. +Asthma. Cardiovascular: Denies CP and palpitations. +Afib. +HTN +HLD GI: See HPI. : Denies dysuria. Endocrine: No history of diabetes or thyroid conditions. Hematology: Bleeds easily. Psych: Positive anxiety/depression. Musculoskeletal: Denies joint pain and swelling. Skin: Denies open sores and rashes. Objective PHYSICAL EXAM: VITALS: BP 173/89 Pulse 68 Temp (Src) 98.5 (Temporal) Resp 16 Ht 4' 11 (1.50m) Wt 112 lb (50.8kg) SpO2 99% BMI 22.61 kg/(m^2). O2 Therapy: Room Air General: NAD. Cooperative. Skin: Skin is warm, no rashes, and no open sores. HEENT: Normocephalic. Cardiovascular: Normal S1 & S2. RRR Lungs: CTA Bilaterally. No respiratory distress. Abdomen: Soft. Pos BS x4quad Extremities: No edema. Neurological: Alert and oriented to person, place, and time. Pulses: radial pulses +2 Diagnostic tests reviewed for today's visit: Lab Value Units Date High Low HB No results within date range. HCT No results within date range. WBC No results within date range. PLT No results within date range. NA No results within date range. K No results within date range. GLUC No results within date range. BUN No results within date range. CREAT No results within date range. PTSEC No results within date range. INR No results within date range. APTT No results within date range. ALT No results within date range. AST No results within date range. TBILI No results within date range. TSH No results within date range. Lab Value Units Date High Low HCGQT No results within date range. UHCG No results within date range. HCG, BODY* No results within date range. Lab Value Units Date High Low ABORHD No results within date range. ABSCREEN No results within date range. Hemoglobin A1C (%) Date Value 02/26/2013 6.1 HBA1C, [place] (%) Date Value 04/14/2012 5.7 Assessment/Plan Patient has the following medical conditions which may affect inez-operative course: Problem List Items Addressed This Visit Cardiovascular Essential hypertension, benign Current Assessment & Plan Metoprolol 25 mg BID- patient stopped 6 months ago on own Followed by Dr. Coy- patient unsure if he knows that metoprolol was stopped Encouraged patient to monitor BP and follow up with PCP and cytotechnologist/cytology supervisor Elevated during PAT NSTEMI (non-ST elevated myocardial infarction) (HCC) Current Assessment & Plan Patient denies knowledge of [place] Atrial fibrillation (HCC) Current Assessment & Plan Metoprolol 25 mg BID- patient stopped on own 6 months ago Event monitor 02/[address] NSR [address] note [address] Dr. Menard 02/16/2022- new onset afib : EKG: OSH EKG, 02/02/2022: Atrial fibrillation Echocardiogram: OSH TTE, 02/04/2022: Normal LV systolic function with ejection fraction 55%. Grade 1 diastolic dysfunction. No significant valve disease Coronary angiography: Left Heart Catheterization, 07/03/2016: Angiographically normal coronary arteries Subjective note from Dr. Menard 02/16/2022: Ms. Diehl is a 77 year old female with a history of ? Hypertension, gastroesophageal reflux disease, hyperlipidemia, Mayra-en-Y gastric bypass surgery in 2016, and Baldwin's pouch for perforated sigmoid diverticulitis being consulted for new onset atrial fibrillation. Patient initially presented to [facility] on 02/01 with complaints of severe abdominal pain. CT of the abdomen pelvis revealed pneumoperitoneum concerning for bowel perforation. As repeat CT of the abdomen pelvis showed worsening pneumoperitoneum, she underwent small bowel follow-through without any evidence of leak or abnormality. She was noted to have a left upper quadrant abscess on 02/04 and was continued on IV antibiotics and started on TPN. She did not undergo IR drain placement due to her complex abdominal history. Patient's hospital course while at [place] was complicated by new onset atrial fibrillation with rapid ventricular response and hypotension requiring ICU admission. She also required thoracentesis for parapneumonic effusion. Unfortunately, in reviewing the records from [facility], it is difficult to determine how long she remained in atrial fibrillation. Per discussion with the patient, she reports experiencing palpitations with her atrial fibrillation and had on and off episodes of atrial fibrillation for 2 to 3 days while she was at [place]. She has been continued on heparin drip for her atrial fibrillation. Since transfer to [facility], patient has improved from an abdominal standpoint and her NG tube has been removed. She has been gradually transition from a clear liquid diet to solids. She otherwise has not had any documented recurrent episodes of atrial fibrillation during her hospitalization here. Patient denies any prior history of atrial fibrillation. She denies any history of any significant cardiac issues in the past. She denies any history of chest pain, shortness of breath, orthopnea, paroxysmal nocturnal dyspnea, lower extremity edema. Pulmonary 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) ([facility]) Current Assessment & Plan Albuterol every 4 hours as needed- only when has a cold in the middle of night Gastrointestinal Acid reflux disease Current Assessment & Plan Pantoprazole every AM most days Unsure of dose Per patient acid reflux is fairly controlled EGD from 02/13/2023 Other dysphagia Current Assessment & Plan EGD for 02/13/2023 Hematology Other specified anemias Current Assessment & Plan Labs from 05/03/2022 H&H 9.7/32.2 Other History of Mayra-en-Y gastric bypass Relevant Orders EGD DIAGNOSTIC Pre-op exam Current Assessment & Plan MAC anesthesia for EGD 02/13/2023 Other Visit Diagnoses Esophageal dysphagia Relevant Orders EGD DIAGNOSTIC Diagnosis: History of Mayra-en-Y gastric bypass [Z98.84] Esophageal dysphagia [R13.19] Planned Procedure: Diagnostic EGD The Following Tests/Procedures Have Been Initiated: IV start and Maintenance fluid for the procedure. ANESTHESIA FINDINGS: Significant Anesthesia Considerations: None Discussed history of afib and stopping metoprolol with Dr. Villagran. Planned Anesthetic: MAC I spent a total of 40 minutes on the date of the service which included preparing to see the patient, sgmt-mv-[id number] patient care, and completing clinical documentation. Instructions Given to Patient: Patient given verbal preop instructions and voices comprehension and compliance. SIGNATURE: Monique Branch APRN.CNP PATIENT NAME: Breanne Diehl DATE: February 12, 2023 TIME: 10:05 AM PAGER/CONTACT #: documented in this encounter [facility] 02-11-2023 Note HNO ID: [id number] Author: RT Robson(R) Service: Radiology Author Type: Technologist Type: Progress Notes Filed: 02/11/2023 1:07 PM Note Text: Radiology Service Progress Note PATIENT NAME: Breanne Diehl DATE OF SERVICE: February 11, 2023 TIME: 1:06 PM PATIENT IDENTITY VERIFICATION COMPLETED USING TWO (2) IDENTIFIERS: Name and Date of confirmed by patient verbally. FALL SCREENING: Has the patient had 2 falls in the last year or 1 fall with injury or currently using an Ambulatory Assistive Device (Walker, Cane, Wheelchair, Crutches, etc.)? No PATIENT GENDER DATA: Female. status: : No status: NO. PATIENT RELEVANT IMPLANT DATA REVIEWED: Not Applicable RADIOLOGY DEPARTMENT: General X-ray: Exam(s) Completed: GI/ Procedure(s): Upper GI with barium contrast PERIPHERAL IV DATA: Not applicable SIGNED BY: RT Robson(R) February 11, 2023 1:06 PM [facility] 02-03-2023 Miscellaneous Notes Called to reschedule UGI No answer, lvm documented in this encounter [facility] 2023 Miscellaneous Notes Patient called and questioned whether she needs the EGD with Dr. Coleman, as she is feeling better today. Patient admits she can only eat small amounts, but I eat frequently. Patient states she is taking her vitamins as directed. After reviewing Dr. Coleman's notes from her appointment on 01/08/23 I encouraged patient to keep her EGD appointment on 02/13 and I will have one of Dr. Coleman's schedulers call her to reschedule the UGI. Patient wrote down the follow up appointment on 03/07/23 at 11 AM. Patient agreed with the plan Makeda Perez RN documented in this encounter [facility] 01-08-2023 Note HNO ID: [id number] Author: Parisa Coleman MD Service: ? Author Type: Physician Type: Progress Notes Filed: 01/08/2023 3:29 PM Note Text: SURGICAL SERVICES HISTORY AND PHYSICAL EXAMINATION SERVICE DATE: 01/08/2023 SERVICE TIME: 3:06 PM PRIMARY CARE PHYSICIAN: Garret Coy MD SUBJECTIVE CHIEF COMPLAINT: history of GJ stricture HISTORY OF PRESENT ILLNESS: Ms. Diehl is a 77 year old female with a PMH of atrial fibrillation w/ RVR, HTN, GERD, CAD, COPD, depression, hiatal hernia, history of HHR s/ RYGB, and HLD who presents due to difficulty with oral intake. I last saw her in clinic on 05/03/22 at which time she had no dysphagia or difficulty swallowing. The patient states that since her last visit with me she again began to experience difficulty swallowing and also with abdominal cramping in September. She was started on dicyclomine and this helps the symptoms of abdominal cramping. She states that she believes her marginal ulcer has returned. She endorses intermittent difficulty swallowing (mostly just large pills) and has some nausea, which occurs once weekly. Denies emesis. She endorses intermittent left sided pain. She takes PRN protonix about twice weekly Per my last clinic note: The patient presents in consultation via referral from the EGS team after a recent hospitalization at [facility] from 02/09-02/19/22. She had presented as a direct admit from [facility]. She had presented to [facility] on 02/01/22 with severe abdominal pain and CT demonstrated pneumoperitoneum concerning for bowel perforation. Gastrografin study via [place] did not demonstrate leak. But repeat CT showed worsening pneumoperitoneum so a small bowel series was performed without any evidence of leak/abnormality. On 02/04 she was noted to have a LUQ abscess and kept on IV Zosyn and started on IV TPN. IR declined to place an IR drain due to her complex surgical history. Her course was then complicated by A-fib with RVR and ICU admission. She needed to undergo thoracentesis for parapneumonic effusion. Per the notes, the patient was weaned off of TPN and eventually discharged on a soft GI diet. Due to atrial fibrillation she was started on Eliquis. Patient's history is significant for laparoscopic PEHR and RYGB on 05/29/16. This was followed by an episode of perforated diverticulitis which resulted in ex lap with Estelle's procedure on 06/28/16. She then developed a small bowel obstruction due to a parastomal hernia and underwent ex lap and hernia repair on 07/05/16. Then on 07/16/16 she was found to have evisceration and underwent laparotomy/washout and closed with vicryl mesh placement PAST MEDICAL HISTORY: PAST MEDICAL HISTORY Diagnosis Date Adjustment disorder with depressed mood Asthma Essential hypertension, benign External hemorrhoids without mention of complication GERD (gastroesophageal reflux disease) Internal hemorrhoids without mention of complication Irritable bowel syndrome Overactive bladder PAST SURGICAL HISTORY: PAST SURGICAL HISTORY Procedure Laterality Date CATARACT EXTRACTION HX Bilateral 2011 COLONOSCOPY 11/26/2006 EGD 10/2014 [place] EGD 12/27/2021 GJ anastomsis w/severe stenosis that was dilated AND hemorrhagic mucosa requiring Epi ANDhemostatic clips x7 LAP COLECTOMY, PART (ESTELLE TYPE PROC) for perforated sigmoid diverticulitis LAP PARTIAL GASTRECTOMY W RNY RECONSTRUC (COMP 84742) 2015 for hiatal hernia NASAL SURGERY PROCEDURE 02/24/2012 Bilateral total ethmoidectomy, bilateral maxillary antrostomy , right middle turbinectomy, septoplasty (Behzad Sharma MD, [facility]) PICC LINE INSERT/CONSULT 07/01/2016 REVISE TOTAL KNEE RE, ONE COMP Right 03/06/2010 complex revision to right total knee replacement -[facility] - Dr. Mcdonald SPLIT AGRFT T/A/L 1ST 100 CM/AND/1% BDY INFT/CHLD 12/25/2016 TONSILLECTOMY PRIMARY/SECONDARY Tonsillectomy TOTAL KNEE REPLACEMENT Bilateral 2001 bilateral knee replacement redo W PROBE PH CAPSULE DOWNEY W/DEL 10/2014 [place] FAMILY HISTORY: FAMILY HISTORY Problem Relation Age of Onset Cancer Father prostate with mets at 91 y/o Prostate Cancer Father Heart Mother Ischemic Heart Disease Mother 88 at 88 y/o Breast Cancer Sister breast- mastectomy at 92 y/o Cancer Sister lymphoma at 76 y/o Cancer Brother Urinary tract at 91 y/o Diabetes Brother None Sister s/p hip replacements SOCIAL HISTORY: Social History Tobacco Use Smoking status: Former Packs/day: 0.30 Years: 4.00 Pack years: 1.20 Types: Cigarettes Quit date: 10/27/1965 Years since quittin.2 Smokeless tobacco: Never Tobacco comments: Few cigarettes daily, < 4 years. TO Substance Use Topics Alcohol use: No Drug use: No MEDICATIONS: Current Outpatient Medications Medication Sig drcfea-cnovlpbi-vaurdyc (ZENPEP) 40,000-126,000- 168,000 unit delayed (more content not included)... [facility] 01-08-2023 Miscellaneous Notes Addended by: ANTONELLA HACKETT on: 01/08/2023 03:53 PM Modules accepted: Orders documented in this encounter [facility] 01-08-2023 Miscellaneous Notes EGD scheduled for 02/13/2023 at 1:00 pm. Prep/instructions given to patient at checkout. Antonella Hackett MA documented in this encounter [facility] 01-08-2023 History of Present illness Narrative Images from the original note were not included. SURGICAL SERVICES HISTORY AND PHYSICAL EXAMINATION SERVICE DATE: 01/08/2023 SERVICE TIME: 3:06 PM PRIMARY CARE PHYSICIAN: Garret Coy MD SUBJECTIVE CHIEF COMPLAINT: history of GJ stricture HISTORY OF PRESENT ILLNESS: Ms. Diehl is a 77 year old female with a PMH of atrial fibrillation w/ RVR, HTN, GERD, CAD, COPD, depression, hiatal hernia, history of HHR s/ RYGB, and HLD who presents due to difficulty with oral intake. I last saw her in clinic on 05/03/22 at which time she had no dysphagia or difficulty swallowing. The patient states that since her last visit with me she again began to experience difficulty swallowing and also with abdominal cramping in September. She was started on dicyclomine and this helps the symptoms of abdominal cramping. She states that she believes her marginal ulcer has returned. She endorses intermittent difficulty swallowing (mostly just large pills) and has some nausea, which occurs once weekly. Denies emesis. She endorses intermittent left sided pain. She takes PRN protonix about twice weekly Per my last clinic note: The patient presents in consultation via referral from the EGS team after a recent hospitalization at [facility] from 02/09-02/19/22. She had presented as a direct admit from [facility]. She had presented to [facility] on 02/01/22 with severe abdominal pain and CT demonstrated pneumoperitoneum concerning for bowel perforation. Gastrografin study via [place] did not demonstrate leak. But repeat CT showed worsening pneumoperitoneum so a small bowel series was performed without any evidence of leak/abnormality. On 02/04 she was noted to have a LUQ abscess and kept on IV Zosyn and started on IV TPN. IR declined to place an IR drain due to her complex surgical history. Her course was then complicated by A-fib with RVR and ICU admission. She needed to undergo thoracentesis for parapneumonic effusion. Per the notes, the patient was weaned off of TPN and eventually discharged on a soft GI diet. Due to atrial fibrillation she was started on Eliquis. Patient's history is significant for laparoscopic PEHR and RYGB on 05/29/16. This was followed by an episode of perforated diverticulitis which resulted in ex lap with Estelle's procedure on 06/28/16. She then developed a small bowel obstruction due to a parastomal hernia and underwent ex lap and hernia repair on 07/05/16. Then on 07/16/16 she was found to have evisceration and underwent laparotomy/washout and closed with vicryl mesh placement PAST MEDICAL HISTORY: PAST MEDICAL HISTORY Diagnosis Date Adjustment disorder with depressed mood Asthma Essential hypertension, benign External hemorrhoids without mention of complication GERD (gastroesophageal reflux disease) Internal hemorrhoids without mention of complication Irritable bowel syndrome Overactive bladder PAST SURGICAL HISTORY: PAST SURGICAL HISTORY Procedure Laterality Date CATARACT EXTRACTION HX Bilateral 2011 COLONOSCOPY 11/26/2006 EGD 10/2014 [place], [place] EGD 12/27/2021 GJ anastomsis w/severe stenosis that was dilated & hemorrhagic mucosa requiring Epi &hemostatic clips x7 LAP COLECTOMY, PART (ESTELLE TYPE PROC) for perforated sigmoid diverticulitis LAP PARTIAL GASTRECTOMY W RNY RECONSTRUC (COMP 95528) 2015 for hiatal hernia NASAL SURGERY PROCEDURE 02/24/2012 Bilateral total ethmoidectomy, bilateral maxillary antrostomy , right middle turbinectomy, septoplasty (Behzad Sharma MD, [facility]) PICC LINE INSERT/CONSULT 07/01/2016 REVISE TOTAL KNEE RE, ONE COMP Right 03/06/2010 complex revision to right total knee replacement -[facility] - Dr. Mcdonald SPLIT AGRFT T/A/L 1ST 100 CM/&/1% BDY INFT/CHLD 12/25/2016 TONSILLECTOMY PRIMARY/SECONDARY <AGE 11 1949 Tonsillectomy TOTAL KNEE REPLACEMENT Bilateral 2001 bilateral knee replacement redo W PROBE PH CAPSULE DOWNEY W/DEL 10/2014 [place] FAMILY HISTORY: FAMILY HISTORY Problem Relation Age of Onset Cancer Father prostate with mets at 91 y/o Prostate Cancer Father Heart Mother Ischemic Heart Disease Mother 88 at 88 y/o Breast Cancer Sister breast- mastectomy at 92 y/o Cancer Sister lymphoma at 76 y/o Cancer Brother Urinary tract at 91 y/o Diabetes Brother None Sister s/p hip replacements SOCIAL HISTORY: Social History Tobacco Use Smoking status: Former Packs/day: 0.30 Years: 4.00 Pack years: 1.20 Types: Cigarettes Quit date: 10/27/1965 Years since quittin.2 Smokeless tobacco: Never Tobacco comments: Few cigarettes daily, < 4 years. TO Substance Use Topics Alcohol use: No Drug use: No MEDICATIONS: Current Outpatient Medications Medication Sig uwqqpx-qgbedjcm-wdcbfwk (ZENPEP) 40,000-126,000- 168,000 unit delayed release capsule Take 1 capsule by mouth twice daily with meals. dicyclomine (BENTYL) 20 mg tablet Take 20 mg by mouth as directed. oxybutynin (DITROPAN) 5 mg tablet Take 5 mg by mouth. linaclotide (LINZESS) 145 mcg capsule Take by mouth DAILY (6 AM). acetaminophen 650 mg CR tablet Take 650 mg by mouth every 8 hours as needed. albuterol (PROVENTIL) 2.5 mg /3 mL (0.083 %) nebulizer solution 3 mL every 4 hours as needed. Use one ampule via nebulizer every 4 hours as needed for cough, wheezing, chest tightness or SOB albuterol HFA (PROVENTIL HFA) 90 mcg/actuation inhaler Inhale 2 Puffs as instructed every 4 hours as needed for Wheezing/Shortness of Breath. 2 PUFFS EVERY 4 HOURS NEEDED; MAY GIVE AVAILABLE EQUIVALENT ALBUTEROL HFA INHALER metoprolol tartrate, short acting, (LOPRESSOR) 25 mg tablet Take 1 tablet by mouth every 12 hours. calcium citrate (CALCITRATE) 200 mg (950 mg) tab Take 1 tablet by mouth twice daily. topical moisturizing lotion (LUBRIDERM DAILY) Apply 1 application to affected area as needed for Dry Skin. Mmmsfciy-Qcbv-Kyd-Folic Acid (CENTRUM) 3,500-18-0.4 unit-mg-mg chewable tablet Take 1 tablet by mouth once daily. cyanocobalamin (VITAMIN B-12) 1,000 mcg tab Take 1 tablet by mouth once daily. iron bis-gly/FA/C/B12/Ca/succ (IRON-150 ORAL) Take by mouth. (Patient not taking: Reported on 01/08/2023) sucralfate (CARAFATE) 1 gram tablet Take 1 g by mouth twice daily. (Patient not taking: No sig reported) metoclopramide HCl (REGLAN) 5 mg tablet Take 5 mg by mouth twice daily. (Patient not taking: No sig reported) docusate sodium (COLACE) 100 mg capsule Take 1 capsule by mouth twice daily. (Patient not taking: Reported on 01/08/2023) cholecalciferol (VITAMIN D3) 1,000 unit tab tablet Take 2 tablets by mouth once daily. (Patient not taking: No sig reported) No current facility-administered medications for this visit. ALLERGIES: ALLERGIES Allergen Reactions Levaquin [Levofloxa* Hives, Swelling, Itching Swelling of face and lips. Penicillins Hives, Intolerance Dilaudid [Hydromorp* Hives Oxycodone Mental Status Change Has been tolerating oxycodone during surgical recovery COMPLETE REVIEW OF SYSTEMS: Review of Systems Constitutional: Negative for chills, diaphoresis, fever and malaise/fatigue. HENT: Negative for congestion, hearing loss, nosebleeds, sinus pain, sore throat and tinnitus. Eyes: Negative for blurred vision, double vision, pain and redness. Respiratory: Negative for cough, hemoptysis, sputum production, shortness of breath and wheezing. Cardiovascular: Negative for chest pain, palpitations, orthopnea, leg swelling and PND. Gastrointestinal: Positive for abdominal pain, heartburn (mild and intermittent) and nausea. Negative for blood in stool, constipation, diarrhea and vomiting. Genitourinary: Negative for dysuria, frequency, hematuria and urgency. Musculoskeletal: Negative for back pain, falls, joint pain, myalgias and neck pain. Skin: Negative for itching and rash. Neurological: Negative for dizziness, speech change, focal weakness, seizures, loss of consciousness, weakness and headaches. Endo/Heme/Allergies: Does not bruise/bleed easily. Psychiatric/Behavioral: Positive for depression. Negative for hallucinations, memory loss, substance abuse and suicidal ideas. The patient is not nervous/anxious and does not have insomnia. OBJECTIVE PHYSICAL EXAM: BP 120/76 Pulse 66 Ht 4' 10 (1.47m) Wt 111 lb 3.2 oz (50.4kg) BMI 23.25 kg/(m^2). Physical Exam Vitals reviewed. Constitutional: Appearance: Normal appearance. HENT: Head: Normocephalic and atraumatic. Eyes: Extraocular Movements: Extraocular movements intact. Conjunctiva/sclera: Conjunctivae normal. Pupils: Pupils are equal, round, and reactive to light. Cardiovascular: Rate and Rhythm: Normal rate. Pulmonary: Effort: Pulmonary effort is normal. No respiratory distress. Abdominal: Comments: abdominal hernia Skin: General: Skin is warm and dry. Coloration: Skin is not jaundiced or pale. Neurological: General: No focal deficit present. Mental Status: She is alert and oriented to person, place, and time. Psychiatric: Mood and Affect: Mood normal. Behavior: Behavior normal. DATA: Diagnostic tests reviewed for today's visit: EMR reviewed Plan ASSESSMENT AND PLAN Breanne Diehl is a 77 year old female with a PMH as noted above who presents with esophageal dysphagia. ASSESSMENT/PLAN: 1. Esophageal dysphagia - ICD9: 787.29, ICD10: R13.19 (primary diagnosis) - She has a history of marginal ulcer and stenosis which has required dilation in the past. She believe she has a recurrent marginal ulcer. Will obtain UGI and then EGD to rule out marginal ulcer or stricture - XR UPPER GI SINGLE CONTRAST - EGD DIAGNOSTIC 2. History of Mayra-en-Y gastric bypass - ICD9: V45.86, ICD10: Z98.84 - She has a history of marginal ulcer and stenosis which has required dilation in the past. She believe she has a recurrent marginal ulcer. Will obtain UGI and then EGD to rule out marginal ulcer or stricture - EGD DIAGNOSTIC 3. Atrial fibrillation, unspecified type (HCC) - ICD9: 427.31, ICD10: I48.91 - Continue current medical management. No medications to stop prior to EGD 4. Heartburn - ICD9: 787.1, ICD10: R12 - Take Protonix daily rather than PRN Medical Decision Making: Problems: Moderate: 2+ stable chronic illnesses Data: Unique test(s) ordered: 2 Discussed management or test w/ external physician/QHCP/source Risk: Moderate: Drug management and Moderate risk from testing/treatment Medical Decision Making Level: 4 - Moderate SIGNATURE: Parisa Coleman MD PATIENT NAME: Breanne Diehl DATE: January 08, 2023 TIME: 3:06 PM PAGER/CONTACT #: [phone] documented in this encounter [facility] 07-22-2022 Miscellaneous Notes Attempted to call patient. No answer, left voicemail. Lynne Escobar APRN.RAEANN Patient called into the office with complaints of real bad cramping, burning, in abdominal area, cant lay on left side and it gets her out of bed at night. Please advise documented in this encounter [facility] 07-09-2022 Miscellaneous Notes She can use an abdominal binder. Sometimes patients find that helpful I called patient and left a voicemail letting her know what Dr. Coleman recommended. Brielle Vargas Ma Patient called in wanting to know what/if there is anything she can do to hold back the hernia so it is not protruding? She isn't having any pain or anything she just wants it to be held back. Please advise. Brielle Vargas Ma documented in this encounter [facility] 05-08-2022 History of Present illness Narrative 6 Years Post-op Patient consented to visit via telephone. Surgery Date/Surgeon:laparoscopic PEHR and RYGB 05/29/16 Breanne Diehl 77 year old female Ht 152.4 cm (5') Wt 46.3 kg (102 lb) BMI 19.92 kg/m Down 1# since meeting with surgeon 05/03. Tolerating by mouth well: Yes Nausea: Yes -- sometimes while eating Vomiting: No Constipation: No Diarrhea:No Weak/Shaky/Light-headed: No 24 hr recall: B: could not recall L: tomato soup D: 2 eggs 1 slice of toast (14g) S: bowl of cereal Vitamins: MVI: centrum womens gummy Calcium Citrate: Not taking Iron: 45mg additional to MV Biotin: 10,000 mcg additional to MV Not meeting goals at this time - recommended trying to switch to procare 45 capsules or celebrateone 45 w/ citracal 650mg tablets 2x/day in divided doses. Referred by DATA TECHNICAL LEAD to review post-op vitamin intake. Briefly reviewed how she has been feeling/overall intake. Per 24 hr recall, unsure of fluid intake yesterday and overall intake lacking protein. Did educate the patient on the importance of protein at each meal and fluid intake to avoid dehydration. Post op vitamins reviewed, not meeting goals at this time. Per pt, she does not use [employer] messaging, therefore all recommendations were written down by patient. Did recommend switching to bariatric MV w/ divided doses of calcium citrate to meet goals. Patient agreed to switching. No follow up needed at this time. Total time in direct patient contact = 15 min. Greater than 50% of the time was spent in counseling and/or coordination of care. Roxy Cowan RD This note was generated using voice recognition technology and may contain grammatical errors. documented in this encounter [facility] 05-03-2022 History of Present illness Narrative Images from the original note were not included. SURGICAL SERVICES HISTORY AND PHYSICAL EXAMINATION SERVICE DATE: 05/03/2022 SERVICE TIME: 8:09 AM PRIMARY CARE PHYSICIAN: Garret Coy MD SUBJECTIVE CHIEF COMPLAINT: GJ stricture HISTORY OF PRESENT ILLNESS: Ms. Diehl is a 77 year old female with a PMH of atrial fibrillation w/ RVR, HTN, GERD, CAD, COPD, depression, hiatal hernia, history of HHR s/ RYGB, and HLD who presents for evaluation of GJ stricture and recent concern for contained GJ perforation after GJ dilation. She states that she presents today to establish with me and she would like me to help care for her if she develops issues in the future. Today she states that she is overall much improved compared to during her recent hospitalization. She states that she is able to consume a fairly normal diet - she even ate a hamberger the other day. She has not experienced any emesis or dysphagia since her dilation in December of 2021. She denies fever, chills, diarrhea, current abdominal pain or other GI issues aide from intermittent constipation for which she takes Linzess. She also takes Reglan and in her chart it does state she has gastroparesis, but this is not consistent with her history of RYGB. During her hospitalizations in January she lost weight to 94 pounds. Today her weight is 103 pounds. Prior to hospitalization her weight was around 105-106 pounds. She denies tobacco use or second hand smoke. She denies steroid use - she states she did use steroids earlier this year for bronchitis. This was prior to her hospitalization in January. The patient presents in consultation via referral from the EGS team after a recent hospitalization at [facility] from 02/09-02/19/22. She had presented as a direct admit from [facility]. She had presented to [facility] on 02/01/22 with severe abdominal pain and CT demonstrated pneumoperitoneum concerning for bowel perforation. Gastrografin study via [place] did not demonstrate leak. But repeat CT showed worsening pneumoperitoneum so a small bowel series was performed without any evidence of leak/abnormality. On 02/04 she was noted to have a LUQ abscess and kept on IV Zosyn and started on IV TPN. IR declined to place an IR drain due to her complex surgical history. Her course was then complicated by A-fib with RVR and ICU admission. She needed to undergo thoracentesis for parapneumonic effusion. Per the notes, the patient was weaned off of TPN and eventually discharged on a soft GI diet. Due to atrial fibrillation she was started on Eliquis. Patient's history is significant for laparoscopic PEHR and RYGB on 05/29/16. This was followed by an episode of perforated diverticulitis which resulted in ex lap with Estelle's procedure on 06/28/16. She then developed a small bowel obstruction due to a parastomal hernia and underwent ex lap and hernia repair on 07/05/16. Then on 07/16/16 she was found to have evisceration and underwent laparotomy/washout and closed with vicryl mesh placement. Social: PAST MEDICAL HISTORY: PAST MEDICAL HISTORY Diagnosis Date Adjustment disorder with depressed mood Asthma Essential hypertension, benign External hemorrhoids without mention of complication GERD (gastroesophageal reflux disease) Internal hemorrhoids without mention of complication Irritable bowel syndrome Overactive bladder PAST SURGICAL HISTORY: PAST SURGICAL HISTORY Procedure Laterality Date CATARACT EXTRACTION HX Bilateral 2011 COLONOSCOPY 11/26/2006 EGD 10/2014 [place] EGD 12/27/2021 GJ anastomsis w/severe stenosis that was dilated & hemorrhagic mucosa requiring Epi &hemostatic clips x7 LAP COLECTOMY, PART (ESTELLE TYPE PROC) for perforated sigmoid diverticulitis LAP PARTIAL GASTRECTOMY W RNY RECONSTRUC (COMP 98411) 2015 for hiatal hernia NASAL SURGERY PROCEDURE 02/24/2012 Bilateral total ethmoidectomy, bilateral maxillary antrostomy , right middle turbinectomy, septoplasty (Behzad Sharma MD, [facility]) PICC LINE INSERT/CONSULT 07/01/2016 REVISE TOTAL KNEE RE, ONE COMP Right 03/06/2010 complex revision to right total knee replacement -[facility] - Dr. Mcdonald SPLIT AGRFT T/A/L 1ST 100 CM/&/1% BDY INFT/CHLD 12/25/2016 TONSILLECTOMY PRIMARY/SECONDARY <AGE 11 1949 Tonsillectomy TOTAL KNEE REPLACEMENT Bilateral 2001 bilateral knee replacement redo W PROBE PH CAPSULE DOWNEY W/DEL 10/2014 [place] FAMILY HISTORY: FAMILY HISTORY Problem Relation Age of Onset Cancer Father prostate with mets at 91 y/o Heart Mother Breast Cancer Sister breast- mastectomy at 92 y/o Cancer Sister lymphoma at 76 y/o Ischemic Heart Disease Mother 88 at 88 y/o Cancer Brother Urinary tract at 91 y/o Diabetes Brother None Sister s/p hip replacements Prostate Cancer Father SOCIAL HISTORY: Social History Tobacco Use Smoking status: Former Smoker Packs/day: 0.30 Years: 4.00 Pack years: 1.20 Types: Cigarettes Quit date: 10/27/1965 Years since quittin.5 Smokeless tobacco: Never Used Tobacco comment: Few cigarettes daily, < 4 years. TO Substance Use Topics Alcohol use: No Drug use: No MEDICATIONS: Current Outpatient Medications Medication Sig sucralfate (CARAFATE) 1 gram tablet Take 1 g by mouth twice daily. metoclopramide HCl (REGLAN) 5 mg tablet Take 5 mg by mouth twice daily. linaclotide (LINZESS) 145 mcg capsule Take by mouth DAILY (6 AM). acetaminophen 650 mg CR tablet Take 650 mg by mouth every 8 hours as needed. albuterol (PROVENTIL) 2.5 mg /3 mL (0.083 %) nebulizer solution 3 mL every 4 hours as needed. Use one ampule via nebulizer every 4 hours as needed for cough, wheezing, chest tightness or SOB albuterol HFA (PROVENTIL HFA) 90 mcg/actuation inhaler Inhale 2 Puffs as instructed every 4 hours as needed for Wheezing/Shortness of Breath. 2 PUFFS EVERY 4 HOURS NEEDED; MAY GIVE AVAILABLE EQUIVALENT ALBUTEROL HFA INHALER metoprolol tartrate, short acting, (LOPRESSOR) 25 mg tablet Take 1 tablet by mouth every 12 hours. calcium citrate (CALCITRATE) 200 mg (950 mg) tab Take 1 tablet by mouth twice daily. topical moisturizing lotion (LUBRIDERM DAILY) Apply 1 application to affected area as needed for Dry Skin. docusate sodium (COLACE) 100 mg capsule Take 1 capsule by mouth twice daily. Xnzcezey-Hpaw-Ehy-Folic Acid (CENTRUM) 3,500-18-0.4 unit-mg-mg chewable tablet Take 1 tablet by mouth once daily. cyanocobalamin (VITAMIN B-12) 1,000 mcg tab Take 1 tablet by mouth once daily. cholecalciferol (VITAMIN D3) 1,000 unit tab tablet Take 2 tablets by mouth once daily. oxybutynin ER (DITROPAN XL) 10 mg 24 hr tablet Take 1 tablet by mouth once daily. No current facility-administered medications for this visit. ALLERGIES: ALLERGIES Allergen Reactions Levaquin [Levofloxa* Hives, Swelling, Itching Swelling of face and lips. Penicillins Hives, Intolerance Dilaudid [Hydromorp* Hives Oxycodone Mental Status Change Has been tolerating oxycodone during surgical recovery COMPLETE REVIEW OF SYSTEMS: Review of Systems Constitutional: Negative for chills, diaphoresis, fever and malaise/fatigue. HENT: Negative for congestion, hearing loss, nosebleeds, sinus pain, sore throat and tinnitus. Eyes: Negative for blurred vision, double vision, pain and redness. Respiratory: Negative for cough, hemoptysis, sputum production, shortness of breath and wheezing. Cardiovascular: Negative for chest pain, palpitations, orthopnea, leg swelling and PND. Gastrointestinal: Negative for abdominal pain, blood in stool, constipation, diarrhea, heartburn, nausea and vomiting. Genitourinary: Negative for dysuria, frequency, hematuria and urgency. Musculoskeletal: Negative for back pain, falls, joint pain, myalgias and neck pain. Skin: Negative for itching and rash. Neurological: Negative for dizziness, speech change, focal weakness, seizures, loss of consciousness, weakness and headaches. Endo/Heme/Allergies: Does not bruise/bleed easily. Psychiatric/Behavioral: Positive for depression. Negative for hallucinations, memory loss, substance abuse and suicidal ideas. The patient is not nervous/anxious and does not have insomnia. OBJECTIVE PHYSICAL EXAM: There were no vitals taken for this visit. Physical Exam Vitals reviewed. Constitutional: Appearance: Normal appearance. She is normal weight. HENT: Head: Normocephalic. Cardiovascular: Rate and Rhythm: Normal rate. Pulmonary: Effort: Pulmonary effort is normal. No respiratory distress. Abdominal: General: Abdomen is flat. There is no distension. Palpations: Abdomen is soft. There is no mass. Hernia: A hernia is present. Comments: Fascial defect centrally; ostomy functioning Skin: General: Skin is warm and dry. Coloration: Skin is not jaundiced or pale. Neurological: General: No focal deficit present. Mental Status: She is alert and oriented to person, place, and time. Psychiatric: Mood and Affect: Mood normal. Behavior: Behavior normal. DATA: Diagnostic tests reviewed for today's visit: EMR reviewed Plan ASSESSMENT AND PLAN Breanne Diehl is a 77 year old female with a PMH as noted above who presents with concerns of GJ stricture and wishes to establish under my care. 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 - She currently denies symptoms of emesis and dysphagia which were issues prior to dilation - nothing to do at this time - She was educated on the importance of avoiding tobacco, second hand smoke, NSAID use (she does use ibuprofen PRN and was told to stop using this), and steroids - as these can all cause marginal ulcers in a patient such as herself with a history of RYGB and GJ anastomosis 2. History of Mayra-en-Y gastric bypass - ICD9: V45.86, ICD10: Z98.84 - As above in #1. She is on a daily vitamin. Due to iron deficiency, her PCP recently placed her on iron supplement - I agree with this. Will obtain bariatric labs as I do not see that these have been obtained recently - Discussed healthy bariatric diet - VITAMIN B12 BLOOD - VITAMIN A/RETINOL - VITAMIN B1 (THIAMINE), WHOLE BLOOD - VITAMIN D 25 HYDROXY - FERRITIN BLD - FOLATE SERUM - CBC + DIFF - BASIC METABOLIC PNL 3. Atrial fibrillation, unspecified type (HCC) - ICD9: 427.31, ICD10: I48.91 - Following with Cardiology. She stopped taking blood thinner on her own due to bruising. She was encouraged to discuss this with her cytotechnologist/cytology supervisor prior to discontinuing it Medical Decision Making: Problems: Moderate: 2+ stable chronic illnesses Data: Unique source(s) for external note(s) reviewed: 3+ Unique test result(s) reviewed: 3+ Unique test(s) ordered: 3+ Discussed management or test w/ external physician/QHCP/source Risk: Minimal: Minimal risk from testing/treatment Medical Decision Making Level: 4 - Moderate SIGNATURE: Parisa Coleman MD PATIENT NAME: Breanne Diehl DATE: May 03, 2022 TIME: 8:09 AM PAGER/CONTACT #: [phone] documented in this encounter [facility] 03-28-2022 Miscellaneous Notes Voicemail msg left for pt to return call to [facility] to review event monitor results. Office phone number provided. Tiara Tony LPN Can you please let Ms. Diehl know that her 30 day event monitor revealed sinus rhythm throughout without recurrent episodes of atrial fibrillation. Thanks, Yoav Menard MD documented in this encounter [facility] 02-21-2022 Miscellaneous Notes She should be scheduled with Dr. Coleman for a hospital follow up. Lynne Escobar APRN.MOVING WORKER Patient being referred from ED notes specify Referral to Dr. Coleman from Bariatric surgery d/t recurrent obstructive symptoms r/t GJ stenosis (pt's Bariatric surgeon no longer in the area). Please review 02/09/22 ED note and advise for scheduling purposes. Thank you Mari Claire Conversion Developer Bariatric Dept. P: [phone] Ext [phone] documented in this encounter [facility] documented as of this encounter (statuses as of 02/19/2022) [facility]04-[facility]-2022 History of Past illness Narrative* Problem Noted Date Resolved Date Small bowel perforation 02/10/2022 02/19/20 22 Asthma 12/10/2010 11/29/2013 Shortness of breath 07/19/2010 12/22/2015 Dysuria 09/27/2008 11/29/2013 documented as of this encounter (statuses as of 02/21/2022) [facility] History of Past illness Narrative* Problem Noted Date Resolved Date Small bowel perforation 02/10/2022 02/19/20 22 Asthma 12/10/2010 11/29/2013 Shortness of breath 07/19/2010 12/22/2015 Dysuria 09/27/2008 11/29/2013 documented as of this encounter (statuses as of 03/28/2022) [address] History of Past illness Narrative* Problem Noted Date Resolved Date Small bowel perforation 02/10/2022 02/19/20 22 Asthma 12/10/2010 11/29/2013 Shortness of breath 07/19/2010 12/22/2015 Dysuria 09/27/2008 11/29/2013 documented as of this encounter (statuses as of 05/03/2022) [address] History of Past illness Narrative* Problem Noted Date Resolved Date Small bowel perforation 02/10/2022 02/19/20 22 Asthma 12/10/2010 11/29/2013 Shortness of breath 07/19/2010 12/22/2015 Dysuria 09/27/2008 11/29/2013 documented as of this encounter (statuses as of 05/08/2022) [address] History of Past illness Narrative* Problem Noted Date Resolved Date Small bowel perforation 02/10/2022 02/19/20 22 Asthma 12/10/2010 11/29/2013 Shortness of breath 07/19/2010 12/22/2015 Dysuria 09/27/2008 11/29/2013 documented as of this encounter (statuses as of 07/09/2022) [address] History of Past illness Narrative* Problem Noted Date Resolved Date Small bowel perforation 02/10/2022 02/19/20 22 Asthma 12/10/2010 11/29/2013 Shortness of breath 07/19/2010 12/22/2015 Dysuria 09/27/2008 11/29/2013 documented as of this encounter (statuses as of 07/22/2022) [address] History of Past illness Narrative* Problem Noted Date Resolved Date Small bowel perforation 02/10/2022 02/19/20 22 Asthma 12/10/2010 11/29/2013 Shortness of breath 07/19/2010 12/22/2015 Dysuria 09/27/2008 11/29/2013 documented as of this encounter (statuses as of 01/08/2023) [address] History of Past illness Narrative* Problem Noted Date Resolved Date Small bowel perforation 02/10/2022 02/19/20 22 Asthma 12/10/2010 11/29/2013 Shortness of breath 07/19/2010 12/22/2015 Dysuria 09/27/2008 11/29/2013 documented as of this encounter (statuses as of 01/08/2023) [address] History of Past illness Narrative* Problem Noted Date Resolved Date Small bowel perforation 02/10/2022 02/19/20 22 Asthma 12/10/2010 11/29/2013 Shortness of breath 07/19/2010 12/22/2015 Dysuria 09/27/2008 11/29/2013 documented as of this encounter (statuses as of 2023) [address] History of Past illness Narrative* Problem Noted Date Resolved Date Small bowel perforation 02/10/2022 02/19/20 22 Asthma 12/10/2010 11/29/2013 Shortness of breath 07/19/2010 12/22/2015 Dysuria 09/27/2008 11/29/2013 documented as of this encounter (statuses as of 02/03/2023) [address] History of Past illness Narrative* Problem Noted Date Resolved Date Small bowel perforation 02/10/2022 02/19/20 22 Asthma 12/10/2010 11/29/2013 Shortness of breath 07/19/2010 12/22/2015 Dysuria 09/27/2008 11/29/2013 documented as of this encounter (statuses as of 02/14/2023) [address] History of Past illness Narrative* Problem Noted Date Resolved Date Small bowel perforation 02/10/2022 02/19/20 22 Asthma 12/10/2010 11/29/2013 Shortness of breath 07/19/2010 12/22/2015 Dysuria 09/27/2008 11/29/2013 documented as of this encounter (statuses as of 03/27/2023) [address] History of Past illness Narrative* Problem Noted Date Diagnosed Date Resolved Date Small bowel perforation 02/10/2022 04/02/2022 Asthma 12/10/2010 11/29/2013 Shortness of breath 07/19/2010 12/22/19 16 Dysuria 09/27/2008 11/29/2013 documented as of this encounter (statuses as of 05/07/2023) [address] History of Past illness Narrative* Problem Noted Date Diagnosed Date Resolved Date Small bowel perforation 02/10/2022 04/2 02/2022 Asthma 12/10/2010 11/29/2013 Shortness of breath 07/19/2010 12/22/19 16 Dysuria 09/27/2008 11/29/2013 documented as of this encounter (statuses as of 05/23/2023) [address] History of Past illness Narrative* Problem Noted Date Diagnosed Date Resolved Date Small bowel perforation 02/10/2022 04/2 02/2022 Asthma 12/10/2010 11/29/2013 Shortness of breath 07/19/2010 12/22/19 16 Dysuria 09/27/2008 11/29/2013 documented as of this encounter (statuses as of 07/02/2023) [address] History of Past illness Narrative* Problem Noted Date Diagnosed Date Resolved Date Small bowel perforation 02/10/2022 042 02/2022 Asthma 12/10/2010 11/29/2013 Shortness of breath 07/19/2010 12/22/19 16 Dysuria 09/27/2008 11/29/2013 documented as of this encounter (statuses as of 07/09/2023) [address] History of Past illness Narrative* Problem Noted Date Diagnosed Date Resolved Date Small bowel perforation 02/10/2022 042 02/2022 Asthma 12/10/2010 11/29/2013 Shortness of breath 07/19/2010 12/22/19 16 Dysuria 09/27/2008 11/29/2013 documented as of this encounter (statuses as of 08/01/2023) [address] History of Past illness Narrative* Problem Noted Date Diagnosed Date Resolved Date Small bowel perforation 02/10/2022 04/2 02/2022 Asthma 12/10/2010 11/29/2013 Shortness of breath 07/19/2010 12/22/19 16 Dysuria 09/27/2008 11/29/2013 documented as of this encounter (statuses as of 09/16/2023) [address] History of Past illness Narrative* Problem Noted Date Diagnosed Date Resolved Date Small bowel perforation 02/10/2022 04/2 02/2022 Asthma 12/10/2010 11/29/2013 Shortness of breath 07/19/2010 12/22/19 16 Dysuria 09/27/2008 11/29/2013 documented as of this encounter (statuses as of 12/18/2023) [address] History of Past illness Narrative* Problem Noted Date Diagnosed Date Resolved Date Small bowel perforation 02/10/2022 04/2 02/2022 Asthma 12/10/2010 11/29/2013 Shortness of breath 07/19/2010 12/22/19 16 Dysuria 09/27/2008 11/29/2013 documented as of this encounter (statuses as of 12/18/2023) [address] History of Past illness Narrative* Problem Noted Date Diagnosed Date Resolved Date Small bowel perforation 02/10/2022 04/2 02/2022 Asthma 12/10/2010 11/29/2013 Shortness of breath 07/19/2010 12/22/19 16 Dysuria 09/27/2008 11/29/2013 documented as of this encounter (statuses as of 12/20/2023) [address] History of Past illness Narrative* Problem Noted Date Diagnosed Date Resolved Date Small bowel perforation 02/10/20222 02/2022 Asthma 12/10/2010 11/29/2013 Shortness of breath 07/19/2010 12/22/19 16 Dysuria 09/27/2008 11/29/2013 documented as of this encounter (statuses as of 01/02/2024) [address] History of Past illness Narrative* Problem Noted Date Diagnosed Date Resolved Date Small bowel perforation 02/10/2022 04/2 02/2022 Asthma 12/10/2010 11/29/2013 Shortness of breath 07/19/2010 12/22/19 16 Dysuria 09/27/2008 11/29/2013 documented as of this encounter (statuses as of 01/05/2024) [address] History of Past illness Narrative* Problem Noted Date Diagnosed Date Resolved Date Small bowel perforation 02/10/2022 04/2 02/2022 Asthma 12/10/2010 11/29/2013 Shortness of breath 07/19/2010 12/22/19 16 Dysuria 09/27/2008 11/29/2013 documented as of this encounter (statuses as of 01/06/2024) [facility] note* Diagnosis Gastrojejunal anastomotic stricture- Primary Other gastrostomy complication History of Mayra-en-Y gastric bypass Bariatric surgery status Atrial fibrillation, unspecified type ([facility]) documented in this encounter [facility] note* Diagnosis Dietary counseling and surveillance- Primary Dietary surveillance and counseling documented in this encounter [facility] note* Diagnosis Esophageal dysphagia- Primary Dysphagia, pharyngoesophageal phase History of Myara-en-Y gastric bypass Bariatric surgery status Atrial fibrillation, unspecified type ([facility]) Heartburn documented in this encounter [facility] note* Diagnosis Atrial fibrillation, unspecified type (HCC) 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) Chronic obstructive asthma, unspecified Essential hypertension, benign Anemia due to other cause, not classified Other dysphagia Pre-op exam Preoperative examination, unspecified NSTEMI (non-ST elevated myocardial infarction) ([facility]) Acute myocardial infarction, subendocardial infarction, episode of care unspecified Gastroesophageal reflux disease, unspecified whether esophagitis present History of Mayra-en-Y gastric bypass Bariatric surgery status Esophageal dysphagia Dysphagia, pharyngoesophageal phase documented in this encounter [facility] note* Diagnosis Pre-op exam- Primary Preoperative examination, unspecified Marginal ulcer Gastrojejunal ulcer, unspecified as acute or chronic, without mention of hemorrhage, perforation, or obstruction Pre-op exam Preoperative examination, unspecified Hyperlipidemia, unspecified hyperlipidemia type Heart failure with reduced ejection fraction (HCC) Heart failure, unspecified Essential hypertension, benign 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) Chronic obstructive asthma, unspecified Gastroesophageal reflux disease, unspecified whether esophagitis present Pulmonary HTN (HCC) Other chronic pulmonary heart diseases Atrial fibrillation, unspecified type (HCC) Acid reflux disease Esophageal reflux 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) Chronic obstructive asthma, unspecified Atrial fibrillation (HCC) Atrial fibrillation Essential hypertension, benign Heart failure with reduced ejection fraction (HCC) Heart failure, unspecified HLD (hyperlipidemia) Other and unspecified hyperlipidemia Pulmonary HTN (HCC) Other chronic pulmonary heart diseases documented in this encounter [facility] note* Diagnosis Left upper quadrant abdominal pain- Primary Marginal ulcer Gastrojejunal ulcer, unspecified as acute or chronic, without mention of hemorrhage, perforation, or obstruction History of Mayra-en-Y gastric bypass Bariatric surgery status Parastomal hernia without obstruction or gangrene Hernia of unspecified site of abdominal cavity without mention of obstruction or gangrene Nausea Nausea alone Moderate protein-calorie malnutrition (HCC) Malnutrition of moderate degree documented in this encounter [facility] note* Diagnosis Left upper quadrant pain- Primary Abdominal pain, left upper quadrant Parastomal hernia without obstruction or gangrene Hernia of unspecified site of abdominal cavity without mention of obstruction or gangrene History of Mayra-en-Y gastric bypass Bariatric surgery status Marginal ulcer Gastrojejunal ulcer, unspecified as acute or chronic, without mention of hemorrhage, perforation, or obstruction Moderate protein-calorie malnutrition (HCC) Malnutrition of moderate degree documented in this encounter [facility] note* Diagnosis Ventral incisional hernia- Primary 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) 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 History of Mayra-en-Y gastric bypass Bariatric surgery status documented in this encounter [facility] note* Diagnosis Preop examination Preoperative examination, unspecified 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) 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 Ventral incisional hernia Essential hypertension, benign Chronic atrial fibrillation (HCC) Atrial fibrillation Heart failure with reduced ejection fraction (HCC) Heart failure, unspecified Pulmonary HTN (HCC) Other chronic pulmonary heart diseases Severe persistent asthma without complication 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) Chronic obstructive asthma, unspecified Gastroesophageal reflux disease, unspecified whether esophagitis present NSTEMI (non-ST elevated myocardial infarction) (HCC) Acute myocardial infarction, subendocardial infarction, episode of care unspecified Hyperlipidemia, unspecified hyperlipidemia type 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) 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 Ventral incisional hernia documented in this encounter [facility] note* Diagnosis 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) 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) 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 Ventral incisional hernia documented in this encounter [facility] note* Diagnosis Ventral hernia without obstruction or gangrene- Primary Ventral hernia, unspecified, without mention of obstruction or gangrene documented in this encounter [facility] for referral (narrative)* Outpatient Procedure (Routine) - Pending Review Specialty Diagnoses / Procedures Referred By Dread polanco Referred To Contact [facility] Diagnoses History of Mayra-en-Y gastric bypass Esophageal dysphagia Procedures EGD DIAGNOSTIC EGD DIAGNOSTIC ESOPHAGOGASTRODUODENOSC OPY TRANSORAL DIAGNOSTIC Parisa Coleman MD [address] [address] [facility] [place] [address] [place] [address] Referral ID Status Reason Start Date Expiration Date Visits Requested Visits Authorized [id number] Pending Review Auto-Generat ed Referral 01/08/2023 01/09/2024 1 1 * Diagnostic Procedure Only (Routine) - Authorized Specialty Diagnoses / Procedures Referred By Dread polanco Referred To Contact XR IMAGING Diagnoses Esophageal dysphagia Procedures XR UPPER GI SINGLE CONTRAST RADIOLOGIC EXAM UPR GI TRC SINGLE CONTRAST STUDY Parisa Coleman MD [address] [address] Xr Imaging Referral ID Status Reason Start Date Expiration Date Visits Requested Visits Authorized [id number] Authorized Auto-Generat ed Referral 10/27/2022 10/26/2023 1 1 [facility] for referral (narrative)* Outpatient Procedure (Routine) - Closed Specialty Diagnoses / Procedures Referred By Dread polanco Referred To Contact Diagnoses History of Mayra-en-Y gastric bypass Esophageal dysphagia Procedures EGD DIAGNOSTIC EGD DIAGNOSTIC ESOPHAGOGASTRODUODENOSCOPY TRANSORAL DIAGNOSTIC Parisa Coleman MD [address] [address] [address] [facility] [address] [place] [address] Referral ID Status Reason Start Date Expiration Date V isits Requested Visits Authorized [id number] Closed Auto-Generate d Referral 02/13/2023 05/14/2023 1 1 [facility] for referral (narrative)* Outpatient Procedure (Routine) - Pending Review Specialty Diagnoses / Procedures Referred By Dread polanco [facility] Diagnoses Preop examination Procedures ECG COMPLETE ECG ROUTINE ECG W/LEAST 12 LDS W/I&R Tameka Ricardo APRN.MOVING WORKER 1 [place] [address] [facility] [address] [place] [address] Referral ID Status Reason Start Date Expiration Date Visits Requested Visits Authorized [id number] Pending Review Auto-Generat ed Referral 12/18/2023 12/17/2024 1 1 [facility] for visit Narrative* Outpatient Procedure (Routine) - Closed Specialty Diagnoses / Procedures [facility]erred To Contact Diagnoses History of Mayra-en-Y gastric bypass Esophageal dysphagia Procedures EGD DIAGNOSTIC EGD DIAGNOSTIC ESOPHAGOGASTRODUODENOSCOPY TRANSORAL DIAGNOSTIC Parisa Coleman MD [address] [address] [address] [facility] 1 [place] [address] Referral ID Status Reason Start Date Expiration Date V isits Requested Visits Authorized [id number] Closed Auto-Generate d Referral 02/13/2023 05/14/2023 1 1 [facility] for visit Narrative* Outpatient Procedure (Routine) - Closed Specialty Diagnoses / Procedures [facility]erred To Contact Diagnoses Marginal ulcer Procedures EGD DIAGNOSTIC EGD DIAGNOSTIC ESOPHAGOGASTRODUODENOSCOPY TRANSORAL DIAGNOSTIC Parisa Coleman MD [address] [address] Parisa Coleman MD 1 [place] [address] Referral ID Status Reason Start Date Expiration Date V isits Requested Visits Authorized [id number] Closed Auto-Generate d Referral 05/22/2023 08/20/2023 1 1 [facility] for visit Narrative* Outpatient Procedure (Routine) - Closed Specialty Diagnoses / Procedures [facility] Referred To Contact Diagnoses 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) Procedures COLONOSCOPY SCREENING COLONOSCOPY FLX DX W/COLLJ SPEC WHEN PFRMD Katerin Lan MD [address] [place] [address] [address] Referral ID Status Reason Start Date Expiration Date V isits Requested Visits Authorized [id number] Closed Auto-Generate d Referral 12/19/2023 03/18/2024 1 1 [facility] Advance Directives No Advanced Directives Records FoundDocuments on File Type Date Recorded Patient Loan Secretary Expl anation Advance Directive(s) Advance Directive(s) 02/11/2022 9:39 AM Advance Directive(s) 06/29/2016 10:51 AM Advance Directive(s) 05/29/2016 4:52 PM Advance Directive(s) 05/13/2016 12:11 PM Advance Directive(s) 04/22/2016 12:15 PM Advance Directive(s) 04/16/2016 1:14 PM Latest Code Status on File Code Status Date Activated Date Inactivated Comments Full Code 12/29/2023 12:40 PM 01/01/2024 9:40 PM Question Answer Comments Full Code Order Discussed With: Patient Date Activated Date Inactivated Comments 12/29/2023 12:40 PM 01/01/2024 9:40 PM Question Answer Comments Full Code Order Discussed With: Patient Medications Administered Section Inactive Administered Medications - up to 3 most recent administrations Medication Order MAR Action Action Date Dose Rate Site lactated ringers iv infusion 30 mL/hr, INTRAVENOUS, CONTINUOUS, Starting on Nicole 02/13/23 at 1200, Until Nicole 02/13/23 at 1402, Preprocedure New Bag/Syringe/Bottle 02/13/2023 11:59 AM EDT 30 mL/hr 30 mL/hr Inactive Administered Medications - up to 3 most recent administrations Medication Order MAR Action Action Date Dose Rate Site lactated ringers iv infusion 30 mL/hr, INTRAVENOUS, CONTINUOUS, Starting on Nicole 05/22/23 at 1400, Until Nciole 05/22/23 at 1437, Preprocedure New Bag/Syringe/Bottle 05/22/2023 1:46 PM EDT 30 mL/hr 30 mL/hr Reason for Referral Specialty Diagnoses / Procedures Referred By Contac t Referred To Contact CT IMAGING Diagnoses Nausea Procedures CT ABD/PEL W IVCON CT ABD & PELVIS W/CONTRAST Parisa Coleman MD 1 [facility] [address] [place] [address] [place] [address] Referral ID Status Reason Start Date Expiration Date V isits Requested Visits Authorized [id number] Closed Auto-Generate d Referral 07/09/2023 08/07/2024 1 1 Specialty Diagnoses / Procedures Referred By Contac t Referred To Contact General Surgery Diagnoses Parastomal hernia without obstruction or gangrene Procedures CONSULT TO GENERAL SURGERY OFFICE/OUTPATIENT NEW HIGH MDM 60-74 MINUTES Parisa Coleman MD 1 [facility] [address] [place] [address] Katerin Lan MD 1 [facility] [address] [place] [address] Referral ID Status Reason Start Date Expiration Date Visits Requested Visits Authorized [id number] Pending Review PCP Requested Referral 07/30/2023 07/29/2024 1 1 Summary Purpose Family History No Family History Records FoundNo Family History Records Found Additional Source Comments Source Comments (unrecognize d section and content) In the event this informatio n is protected by the Federal Confidentiality of Alcohol and Drug Abuse Patient Records regulations: The Federal rules restrict any use of the information to criminally investigate or prosecute any alcohol or drug abuse patient.[facility] the event this information is protected by the Federal Confidentiality of Alcohol and Drug Abuse Patient Records regulations: The Federal rules restrict any use of the information to criminally investigate or prosecute any alcohol or drug abuse patient.[facility] the event this information is protected by the Federal Confidentiality of Alcohol and Drug Abuse Patient Records regulations: The Federal rules restrict any use of the information to criminally investigate or prosecute any alcohol or drug abuse patient.[facility] the event this information is protected by the Federal Confidentiality of Alcohol and Drug Abuse Patient Records regulations: The Federal rules restrict any use of the information to criminally investigate or prosecute any alcohol or drug abuse patient.[facility] the event this information is protected by the Federal Confidentiality of Alcohol and Drug Abuse Patient Records regulations: The Federal rules restrict any use of the information to criminally investigate or prosecute any alcohol or drug abuse patient.[facility] the event this information is protected by the Federal Confidentiality of Alcohol and Drug Abuse Patient Records regulations: The Federal rules restrict any use of the information to criminally investigate or prosecute any alcohol or drug abuse patient.[facility] the event this information is protected by the Federal Confidentiality of Alcohol and Drug Abuse Patient Records regulations: The Federal rules restrict any use of the information to criminally investigate or prosecute any alcohol or drug abuse patient.[facility] the event this information is protected by the Federal Confidentiality of Alcohol and Drug Abuse Patient Records regulations: The Federal rules restrict any use of the information to criminally investigate or prosecute any alcohol or drug abuse patient.[facility] the event this information is protected by the Federal Confidentiality of Alcohol and Drug Abuse Patient Records regulations: The Federal rules restrict any use of the information to criminally investigate or prosecute any alcohol or drug abuse patient.[facility] the event this information is protected by the Federal Confidentiality of Alcohol and Drug Abuse Patient Records regulations: The Federal rules restrict any use of the information to criminally investigate or prosecute any alcohol or drug abuse patient.[facility] the event this information is protected by the Federal Confidentiality of Alcohol and Drug Abuse Patient Records regulations: The Federal rules restrict any use of the information to criminally investigate or prosecute any alcohol or drug abuse patient.[facility] the event this information is protected by the Federal Confidentiality of Alcohol and Drug Abuse Patient Records regulations: The Federal rules restrict any use of the information to criminally investigate or prosecute any alcohol or drug abuse patient.[facility] the event this information is protected by the Federal Confidentiality of Alcohol and Drug Abuse Patient Records regulations: The Federal rules restrict any use of the information to criminally investigate or prosecute any alcohol or drug abuse patient.[facility] the event this information is protected by the Federal Confidentiality of Alcohol and Drug Abuse Patient Records regulations: The Federal rules restrict any use of the information to criminally investigate or prosecute any alcohol or drug abuse patient.[facility] the event this information is protected by the Federal Confidentiality of Alcohol and Drug Abuse Patient Records regulations: The Federal rules restrict any use of the information to criminally investigate or prosecute any alcohol or drug abuse patient.[facility] Center[facility] the event this information is protected by the Federal Confidentiality of Alcohol and Drug Abuse Patient Records regulations: The Federal rules restrict any use of the information to criminally investigate or prosecute any alcohol or drug abuse patient.[facility] Center[facility] the event this information is protected by the Federal Confidentiality of Alcohol and Drug Abuse Patient Records regulations: The Federal rules restrict any use of the information to criminally investigate or prosecute any alcohol or drug abuse patient.[facility] Center[facility] the event this information is protected by the Federal Confidentiality of Alcohol and Drug Abuse Patient Records regulations: The Federal rules restrict any use of the information to criminally investigate or prosecute any alcohol or drug abuse patient.[facility] CenterIn the event this information is protected by the Federal Confidentiality of Alcohol and Drug Abuse Patient Records regulations: The Federal rules restrict any use of the information to criminally investigate or prosecute any alcohol or drug abuse patient.[facility] CenterIn the event this information is protected by the Federal Confidentiality of Alcohol and Drug Abuse Patient Records regulations: The Federal rules restrict any use of the information to criminally investigate or prosecute any alcohol or drug abuse patient.[facility] Center[facility] the event this information is protected by the Federal Confidentiality of Alcohol and Drug Abuse Patient Records regulations: The Federal rules restrict any use of the information to criminally investigate or prosecute any alcohol or drug abuse patient.[facility] CenterIn the event this information is protected by the Federal Confidentiality of Alcohol and Drug Abuse Patient Records regulations: The Federal rules restrict any use of the information to criminally investigate or prosecute any alcohol or drug abuse patient.[facility] CenterIn the event this information is protected by the Federal Confidentiality of Alcohol and Drug Abuse Patient Records regulations: The Federal rules restrict any use of the information to criminally investigate or prosecute any alcohol or drug abuse patient.[facility] CenterIn the event this information is protected by the Federal Confidentiality of Alcohol and Drug Abuse Patient Records regulations: The Federal rules restrict any use of the information to criminally investigate or prosecute any alcohol or drug abuse patient.[facility] CenterIn the event this information is protected by the Federal Confidentiality of Alcohol and Drug Abuse Patient Records regulations: The Federal rules restrict any use of the information to criminally investigate or prosecute any alcohol or drug abuse patient.[facility] Reason for Visit (unrecogniz ed section and content) Reason Comments New Patient Reason Onset Date Comments Results 03/28/2022 Reason Comments New Patient Evaluation Reason Comments Established Patient Reason Comments Patient Question Reason Comments Established Patient Reason Comments Appointment EGD Reason Comments Appointment Reason Comments Patient Update Reason Comments Follow Up Reason Comments Mass Reason Comments Patient Education Reason Comments Follow Up Phone Call Post discharge phon e call attempt made. No answer Reason Comments Follow Up Phone Call All clear Care Teams (unrecognized sec tion and content) Material Hauler Relationship Specialty Start Date End Date Zbigniew Garret Alcantara PCP - General Gerontology 09/06/16 Carlos Galarza Consulting Pulmonary Disease 05/19/14 Material Hauler Relationship Specialty Start Date End Date Zbigniew Garret Alcantara PCP - General Gerontology 09/06/16 Carlos Galarza Consulting Pulmonary Disease 05/19/14 Material Hauler Relationship Specialty Start Date End Date Zbigniew Garret Alcantara PCP - General Gerontology 09/06/16 Carlos Galarza Consulting Pulmonary Disease 05/19/14 Material Hauler Relationship Specialty Start Date End Date Zbigniew Garret Alcantara PCP - General Gerontology 09/06/16 Carlos Galarza Consulting Pulmonary Disease 05/19/14 Material Hauler Relationship Specialty Start Date End Date Zbigniew Garret Alcantara PCP - General Gerontology 09/06/16 Carlos Galarza Consulting Pulmonary Disease 05/19/14 Material Hauler Relationship Specialty Start Date End Date Garret Coy Chi PCP - General Gerontology 09/06/16 Carlos Galarza Consulting Pulmonary Disease 05/19/14 Material Hauler Relationship Specialty Start Date End Date Garret Coy Chi PCP - General Gerontology 09/06/16 Carlos Galarza Consulting Pulmonary Disease 05/19/14 Material Hauler Relationship Specialty Start Date End Date Garret Coy Chi PCP - General Gerontology 09/06/16 Carlos Galarza Consulting Pulmonary Disease 05/19/14 Material Hauler Relationship Specialty Start Date End Date Garret Coy Chi PCP - General Gerontology 09/06/16 Carlos Galarza Consulting Pulmonary Disease 05/19/14 Material Hauler Relationship Specialty Start Date End Date Garret Coy Chi PCP - General Gerontology 09/06/16 Carlos Galarza Consulting Pulmonary Disease 05/19/14 Material Hauler Relationship Specialty Start Date End Date Garret Coy Chi PCP - General Gerontology 09/06/16 Carlos Galarza Consulting Pulmonary Disease 05/19/14 Material Hauler Relationship Specialty Start Date End Date Garret Coy Chi PCP - General Gerontology 09/06/16 Carlos Galarza Consulting Pulmonary Disease 05/19/14 Material Hauler Relationship Specialty Start Date End Date Zbigniew Garret Alcantara PCP - General Gerontology 09/06/16 Carlos Galarza MD Consulting Pulmonary Disease 05/19/14 Material Hauler Relationship Specialty Start Date End Date Zbigniew Garret Alcantara PCP - General Gerontology 09/06/16 Carlos Galarza MD Consulting Pulmonary Disease 05/19/14 Material Hauler Relationship Specialty Start Date End Date Zbigniew Garret Alcantara PCP - General Gerontology 09/06/16 Carlos Galarza MD Consulting Pulmonary Disease 05/19/14 Material Hauler Relationship Specialty Start Date End Date Zbigniew Garret Alcantara PCP - General Gerontology 09/06/16 Carlos Galarza MD Consulting Pulmonary Disease 05/19/14 Material Hauler Relationship Specialty Start Date End Date ZbigniewGarret paulino Chi PCP - General Gerontology 09/06/16 Carlos Galarza MD Consulting Pulmonary Disease 05/19/14 Material Hauler Relationship Specialty Start Date End Date Zbigniew Garret Alcantara PCP - General Gerontology 09/06/16 Carlos Galarza MD Consulting Pulmonary Disease 05/19/14 Material Hauler Relationship Specialty Start Date End Date Zbigniew Garret Alcantara PCP - General Gerontology 09/06/16 Carlos Galarza MD Consulting Pulmonary Disease 05/19/14 Material Hauler Relationship Specialty Start Date End Date Zbigniew Garret Alcantara PCP - General Gerontology 09/06/16 Carlos Galarza MD Consulting Pulmonary Disease 05/19/14 Material Hauler Relationship Specialty Start Date End Date ZbigniewGarret Chi PCP - General Gerontology 09/06/16 Carlos Galarza MD Consulting Pulmonary Disease 05/19/14 Inactive Administered Medications - up to 3 most recent administrations Administered Medications (un recognized section and content) INFORMATION SOURCE (unrecogn ized section and content) DATE CREATED AUTHOR AUTHOR'S ORGANIZ ATION 01/06/2024 [facility] FOR RECORDS PERTAINING TO PATIENTS WHO ARE OR HAVE BEEN ENROLLED IN A CHEMICAL DEPENDENCY/SUBSTANCEABUSE PROGRAM, SOME INFORMATION MAY BE OMITTED. This clinical summary was aggregated from multiple sources. Caution should be exercised in using it in the provision of clinical care. This summary normalizes information from multiple sources, and as a consequence, information in this document may materially change the coding, format and clinical context of patient data. In addition, data may be omitted in some cases. CLINICAL DECISIONS SHOULD BE BASED ON THE PRIMARY CLINICAL RECORDS. [facility]. provides no warranty or guarantee of the accuracy or completeness of information in this document.
== END 2024-01-07 12:40 | disposition home or self-care (01) ==
LOC: MEDOUTP 12:40
PROVIDERS: PCP Family Medicine Geriatric Medicine; Referring Provider Family Medicine Geriatric Medicine; Visit Provider Family Medicine Geriatric Medicine
DX: E83.52 Hypercalcemia (principal); E86.0 Dehydration
CPT/HCPCS: 96360; 96361; J7030; A4216

== ENCOUNTER 2024-01-07 16:59 | Outpatient (CLI) | payer MEDICARE, MEDICAID, SELFPAY ==
[2024-01-07 17:46] LABS: Absolute Lymphocyte Count 2.46 X10^3/uL (0.83-4.51); Absolute Neutrophil Count 8.1 X10^3/uL (2.0-7.7); Basophil# 0.07 X10^3/uL; Basophil% 0.6 % (0-1); Eosinophil# 0.54 X10^3/uL; Eosinophils% 4.4 % (0-5); Hematocrit 36.4 % (37-47); Hemoglobin 11.8 g/dL (12.0-15.0); Lymphocyte # 2.46 X10^3/ul (0.83-4.51); Mean Corp Hgb Conc 32.4 g/dL (32-36); Mean Corpuscular Hgb 28.5 pg (27.0-32.0); Mean Corpuscular Volume 87.9 fL (81-99); Mean Platelet Vol. 9.8 fl (6.2-12.0); Monocyte# 1.09 X10^3/uL; Monocyte% 8.9 % (0-10); NRBC Flagged by Analyzer 0 % (0-5); Neutrophil % 65.8 % (47-70); Platelet Count 486 K/mm3 (150-450); RBC Distribution Width CV 13.9 % (11.6-14.6); RBC Distribution Width SD 44.4 fl (35.1-43.9); Red Blood Count 4.14 M/mm3 (4.2-5.4); White Blood Count 12.3 K/mm3 (4.4-11.0)
[2024-01-07 18:00] LABS: Anion Gap 7 (5-15); BUN 9 mg/dL (7-18); BUN/Creat Ratio 11.6 RATIO (10-20); Calcium,Total 11.7 mg/dL (8.5-10.1); Chloride 110 mmol/L (98-107); Creatinine, Serum 0.78 mg/dL (0.55-1.02); EST Glomerular Filtration Rate 76 mL/min (>60); Est Glom Filt Rate - Afr Amer 92 mL/min (>60); Glucose 126 mg/dL (74-106); Sodium Level 142 mmol/L (136-145)
[2024-01-07 18:08] LABS: PTHIN 100.5 pg/mL (18.4-80.1)
== END 2024-01-07 23:59 | disposition home or self-care (01) ==
LOC: POLAB3 17:00
PROVIDERS: PCP Family Medicine Geriatric Medicine; Visit Provider Family Medicine Geriatric Medicine
DX: I10 Essential (primary) hypertension (principal); J44.9 Chronic obstructive pulmonary disease, unspecified; E83.52 Hypercalcemia; E86.0 Dehydration
CPT/HCPCS: 96360; 96361; 36415; 80048; 83970; 85025; J7030; A4216

== ENCOUNTER 2024-01-08 13:00 | Outpatient (CLI) | payer MEDICARE, MEDICAID, SELFPAY ==
[2024-01-08 13:24] VITALS: BP 132/68; PULSE 64; RESP 16; TEMP 37; O2SAT 98
[2024-01-08] MEDS: 0.9% NaCl Peripheral Flush Adult/Peds IV (13:24)
[2024-01-08] MEDS: 0.9% Normal Saline (1000mL) 1,000 ML 999 ML IV (13:35)
[2024-01-08 14:20] LABS: Anion Gap 4 (5-15); BUN 15 mg/dL (7-18); BUN/Creat Ratio 19.3 RATIO (10-20); Calcium,Total 11.6 mg/dL (8.5-10.1); Chloride 110 mmol/L (98-107); Creatinine, Serum 0.78 mg/dL (0.55-1.02); EST Glomerular Filtration Rate 76 mL/min (>60); Est Glom Filt Rate - Afr Amer 92 mL/min (>60); Glucose 118 mg/dL (74-106); Potassium 3.2 mmol/L (3.5-5.1); Sodium Level 140 mmol/L (136-145)
[2024-01-08] MEDS: Potassium Chloride IVPB 40 MEQ 100 MEQ IV BOLUS ×4 (14:45→18:00)
[2024-01-08] MEDS: 0.9% Normal Saline (1000mL) 1,000 ML 250 ML IV (14:47)
--- NOTE | 2024-01-08 17:50 | NURSING ---
Pt admitted to [id number] for completion of Iv potassium. Meal is ordered and pt in room. #3 of K is infusing
--- NOTE | 2024-01-08 19:12 | NURSING ---
IV potassium completed and Lab called to draw bmp.
[2024-01-08 19:13] VITALS: BP 122/70; PULSE 70; RESP 18; TEMP 36.9; O2SAT 98
[2024-01-08 19:49] LABS: Anion Gap 5 (5-15); BUN 14 mg/dL (7-18); BUN/Creat Ratio 20.2 RATIO (10-20); Chloride 114 mmol/L (98-107); Creatinine, Serum 0.69 mg/dL (0.55-1.02); EST Glomerular Filtration Rate 87 mL/min (>60); Est Glom Filt Rate - Afr Amer 105 mL/min (>60); Glucose 112 mg/dL (74-106); Potassium 3.4 mmol/L (3.5-5.1); Sodium Level 142 mmol/L (136-145)
== END 2024-01-08 19:45 | disposition home or self-care (01) ==
LOC: LAB.FUTURE 13:00 → LAB 13:59 → MS3 16:53
PROVIDERS: PCP Family Medicine Geriatric Medicine; Referring Provider Family Medicine Geriatric Medicine; Visit Provider Family Medicine Geriatric Medicine
DX: E83.52 Hypercalcemia (principal); E86.0 Dehydration; D64.9 Anemia, unspecified
CPT/HCPCS: 96365; 96366; 96361; 80048; J7030

== ENCOUNTER → 2024-01-12 | Outpatient (CLI) | payer MEDICARE, MEDICAID, SELFPAY ==
[2024-01-12 14:01] LABS: (24 HR) Urine Calcium 106.6 mg/24 HR (42.0-353.0); 24HR UR TOTAL VOLUME 650 ml; Calcium Urine pH Range 1; Urine Calcium (Random) 16.4 (Not Estab.)
[2024-01-12 15:34] LABS: Absolute Lymphocyte Count 2.35 X10^3/uL (0.83-4.51); Absolute Neutrophil Count 2.9 X10^3/uL (2.0-7.7); Basophil# 0.05 X10^3/uL; Basophil% 0.7 % (0-1); Eosinophil# 0.47 X10^3/uL; Hematocrit 35.4 % (37-47); Hemoglobin 11.4 g/dL (12.0-15.0); Lymphocyte # 2.35 X10^3/ul (0.83-4.51); Lymphocyte % 34.9 % (19-41); Mean Corp Hgb Conc 32.2 g/dL (32-36); Mean Corpuscular Hgb 28.4 pg (27.0-32.0); Mean Corpuscular Volume 88.3 fL (81-99); Monocyte# 0.92 X10^3/uL; Monocyte% 13.7 % (0-10); NRBC Flagged by Analyzer 0 % (0-5); Neutrophil # 2.92 X10^3/uL (2.7-7.7); Neutrophil % 43.4 % (47-70); Platelet Count 403 K/mm3 (150-450); RBC Distribution Width CV 14.2 % (11.6-14.6); RBC Distribution Width SD 45.6 fl (35.1-43.9); Red Blood Count 4.01 M/mm3 (4.2-5.4); White Blood Count 6.7 K/mm3 (4.4-11.0)
[2024-01-12 16:49] LABS: Anion Gap 7 (5-15); BUN 16 mg/dL (7-18); BUN/Creat Ratio 16.5 RATIO (10-20); Calcium,Total 11.9 mg/dL (8.5-10.1); Chloride 105 mmol/L (98-107); Creatinine, Serum 0.97 mg/dL (0.55-1.02); EST Glomerular Filtration Rate 59 mL/min (>60); Est Glom Filt Rate - Afr Amer 71 mL/min (>60); Glucose 85 mg/dL (74-106); Potassium 3.2 mmol/L (3.5-5.1); Sodium Level 142 mmol/L (136-145)
== END | disposition home or self-care (01) ==
PROVIDERS: PCP Family Medicine Geriatric Medicine; Referring Provider Family Medicine Geriatric Medicine; Visit Provider Family Medicine Geriatric Medicine
DX: E83.52 Hypercalcemia (principal); D72.829 Elevated white blood cell count, unspecified
CPT/HCPCS: 36415; 80048; 81050; 82340; 85025

== ENCOUNTER → 2024-03-10 | Outpatient (CLI) | payer MEDICARE, MEDICAID, SELFPAY ==
--- NOTE | 2024-03-10 14:04 | BD_ITS ---
STUDY: DUAL ENERGY X-RAY ABSORPTIOMETRY / DXA REASON FOR EXAM: Female, 79 years old. E21.0 TECHNIQUE: Bone Mineral Density (BMD) measurements of lumbar spine and bilateral hips were obtained. COMPARISON: None. FINDINGS: Lumbar Spine (L1-L4): g/cm2 (0.911) / T-score (-1.0) / Z-score (1.6) Findings are suggestive of osteopenia with a low fracture risk. Left Femur Total: g/cm2 (0.550) / T-score (-3.2) / Z-score (-1.2) Left Femoral Neck: g/cm2 (0.434) / T-score (-3.7) / Z-score (-1.4) Right Femur Total: g/cm2 (0.535) / T-score (-3.3) / Z-score (-1.3) Right Femoral Neck: g/cm2 (0.489) / T-score (-3.2) / Z-score (-0.9) BD/Dexa Bone Density Study IMPRESSION: The patient is considered osteoporotic as outlined below according to World Anthony Organization (WHO) criteria with a high fracture risk. Reference Information: The T-score is the number of standard deviations above or below the standard which is normal for young adults at their peak bone mineral density. The World Health Organization (WHO) interprets the T-scores as follows: Above -1 Normal bone density Between -1 and -2.5 Osteopenia Equal to / or below -2.5 Osteoporosis As a practical clinical guideline, osteopenia may be graded as follows: Mild -1 through -1.5 Moderate -1.6 through -2.0 Severe -2.1 through -2.4 The Z-score is the number of standard deviations above or below age-matched controls. A Z-score of less than -1.5 would be considered abnormal. References: 1. NIH Osteoporosis and Related Bone Diseases www osteo.org 2. International Society for Clinical Densitometry www iscd.org 3. National Osteoporosis Foundation www nof.org Electronically Signed: Sreekanth Kenney MD at 12:52 EDT ,
== END | disposition home or self-care (01) ==
PROVIDERS: PCP Family Medicine Geriatric Medicine; Referring Provider Surgery; Visit Provider Surgery
DX: E21.0 Primary hyperparathyroidism (principal)
CPT/HCPCS: 77080

== ENCOUNTER → 2024-04-06 | Outpatient (CLI) | payer MEDICARE, MEDICAID, SELFPAY | END | disposition home or self-care (01) | LOC: PSN 11:46 | PROVIDERS: PCP Family Medicine Geriatric Medicine; Referring Provider Family Medicine Geriatric Medicine; Visit Provider Family Medicine Geriatric Medicine | DX: R68.83 Chills (without fever) (principal) | CPT/HCPCS: 87631; J7120 ==

== ENCOUNTER → 2024-05-05 | Outpatient (CLI) | payer MEDICARE, MEDICAID, SELFPAY ==
--- NOTE | 2024-05-05 16:55 | RAD_ITS ---
INDICATION: DIARRHEA EXAMINATION/TECHNIQUE: X-RAY - XR Abdomen W/ Decub and/or Erect Views COMPARISON: None FINDINGS: BOWEL GAS PATTERN: Multiple air-fluid levels noted throughout the small bowel. No bowel wall thickening. Minimal gas-filled large bowel segments. Stomach has normal appearance. FREE AIR: Not assessed on a single supine view. ORGANOMEGALY: Not seen. CALCIFICATIONS: No abnormal calcifications observed. LOWER CHEST: No acute pathology. BONES AND SOFT TISSUES: Diffuse lumbar spondylosis. No acute bony changes. RAD/[employer] Decub and/or Erect IMPRESSION: 1. Multiple loops of mildly distended bowel with air-fluid levels. No sydnee bowel obstruction, however mild adynamic ileus versus sequelae of diffuse enteritis are considerations. 2. No free air. No mucosal fold thickening or pneumatosis. Electronically Signed: Chandan Brown MD at 18:40 EDT ,
== END | disposition home or self-care (01) ==
LOC: RAD 16:48
PROVIDERS: PCP Family Medicine Geriatric Medicine; Referring Provider Family Medicine Geriatric Medicine; Visit Provider Family Medicine Geriatric Medicine
DX: R19.7 Diarrhea, unspecified (principal); I10 Essential (primary) hypertension; E78.5 Hyperlipidemia, unspecified; E55.9 Vitamin D deficiency, unspecified
CPT/HCPCS: 74019

== ENCOUNTER → 2024-05-07 | Outpatient (CLI) | payer MEDICARE, MEDICAID, SELFPAY ==
[2024-05-07 15:50] LABS: Absolute Lymphocyte Count 3.51 X10^3/uL (0.83-4.51); Absolute Neutrophil Count 5.8 X10^3/uL (2.0-7.7); Basophil# 0.03 X10^3/uL; Basophil% 0.3 % (0-1); Eosinophil# 0.26 X10^3/uL; Eosinophils% 2.4 % (0-5); Hematocrit 37.4 % (37-47); Hemoglobin 12.5 g/dL (12.0-15.0); Lymphocyte # 3.51 X10^3/ul (0.83-4.51); Lymphocyte % 32.1 % (19-41); Mean Corp Hgb Conc 33.4 g/dL (32-36); Mean Corpuscular Hgb 27.4 pg (27.0-32.0); Mean Platelet Vol. 9.6 fl (6.2-12.0); Monocyte# 1.35 X10^3/uL; Monocyte% 12.3 % (0-10); NRBC Flagged by Analyzer 0 % (0-5); Neutrophil # 5.76 X10^3/uL (2.7-7.7); Neutrophil % 52.6 % (47-70); POSITIVE MORPHOLOGY YES; Platelet Count 338 K/mm3 (150-450); RBC Distribution Width CV 13.8 % (11.6-14.6); RBC Distribution Width SD 41.1 fl (35.1-43.9); Red Blood Count 4.56 M/mm3 (4.2-5.4); White Blood Count 10.9 K/mm3 (4.4-11.0)
[2024-05-07 16:30] LABS: Vitamin D,25 Hydroxy 71.1 ng/mL
[2024-05-07 16:35] LABS: ALB/GLOB Ratio 0.8 RATIO (0.9-2.4); AST(SGOT) 17 U/L (15-37); Alanine Aminotransfer ALT/SGPT 16 U/L (13-56); Albumin, Serum 3.1 g/dL (3.2-5.0); Alkaline Phosphatase 117 U/L (45-117); Anion Gap 8 (5-15); BUN 22 mg/dL (7-18); BUN/Creat Ratio 22.6 RATIO (10-20); Calcium,Total 9.2 mg/dL (8.5-10.1); Chloride 107 mmol/L (98-107); Cholesterol 85 mg/dL (200); Creatinine, Serum 0.97 mg/dL (0.55-1.02); EST Glomerular Filtration Rate 59 mL/min (>60); Est Glom Filt Rate - Afr Amer 71 mL/min (>60); Globulin 3.7 g/dL (2.2-4.2); Glucose 128 mg/dL (74-106); High Density Lipoprotein 46 mg/dL; Potassium 2.8 mmol/L (3.5-5.1); Protein, Total 6.8 g/dL (6.4-8.2); Sodium Level 134 mmol/L (136-145); Thyroid Stim Hormone (TSH) 1.38 uIU/mL (0.358-3.74); Triglycerides 54 mg/dL; Very Low Density Lipoprotein 11 mg/dL (5-40)
[2024-05-07 17:02] LABS: Differential Comment SCANNED; Differential Indicated SCAN CRITERIA MET
== END | disposition home or self-care (01) ==
LOC: LAB 15:24
PROVIDERS: PCP Family Medicine Geriatric Medicine; Referring Provider Family Medicine Geriatric Medicine; Visit Provider Family Medicine Geriatric Medicine
DX: I10 Essential (primary) hypertension (principal); E78.5 Hyperlipidemia, unspecified; E55.9 Vitamin D deficiency, unspecified
CPT/HCPCS: 36415; 80053; 80061; 82306; 84443; 85025

== ENCOUNTER → 2024-11-08 | Outpatient (CLI) | payer MEDICAID, MEDICARE, SELFPAY ==
[2024-11-08 13:49] LABS: Absolute Lymphocyte Count 2.37 X10^3/uL (0.83-4.51); Absolute Neutrophil Count 3.4 X10^3/uL (2.0-7.7); Basophil# 0.08 X10^3/uL; Basophil% 1.1 % (0-1); Eosinophil# 0.53 X10^3/uL; Eosinophils% 7.3 % (0-5); Hematocrit 41.8 % (37-47); Hemoglobin 13.5 g/dL (12.0-15.0); Lymphocyte # 2.37 X10^3/ul (0.83-4.51); Lymphocyte % 32.7 % (19-41); Mean Corp Hgb Conc 32.3 g/dL (32-36); Mean Corpuscular Volume 83.6 fL (81-99); Mean Platelet Vol. 9.8 fl (6.2-12.0); NRBC Flagged by Analyzer 0 % (0-5); Neutrophil # 3.44 X10^3/uL (2.7-7.7); Neutrophil % 47.5 % (47-70); Platelet Count 328 K/mm3 (150-450); RBC Distribution Width CV 14.4 % (11.6-14.6); RBC Distribution Width SD 43.9 fl (35.1-43.9); White Blood Count 7.3 K/mm3 (4.4-11.0)
[2024-11-08 14:48] LABS: ALB/GLOB Ratio 0.8 RATIO (0.9-2.4); AST(SGOT) 21 U/L (15-37); Alanine Aminotransfer ALT/SGPT 17 U/L (13-56); Albumin, Serum 3.4 g/dL (3.2-5.0); Alkaline Phosphatase 107 U/L (45-117); Anion Gap 6 (5-15); BUN 13 mg/dL (7-18); BUN/Creat Ratio 15.7 RATIO (10-20); Calcium,Total 9.5 mg/dL (8.5-10.1); Chloride 110 mmol/L (98-107); Cholesterol 156 mg/dL (200); Creatinine, Serum 0.83 mg/dL (0.55-1.02); EST Glomerular Filtration Rate 70 mL/min (>60); Est Glom Filt Rate - Afr Amer 85 mL/min (>60); Globulin 4.1 g/dL (2.2-4.2); Glucose 93 mg/dL (74-106); High Density Lipoprotein 58 mg/dL; Potassium 3.8 mmol/L (3.5-5.1); Protein, Total 7.5 g/dL (6.4-8.2); Sodium Level 141 mmol/L (136-145); Triglycerides 69 mg/dL; Very Low Density Lipoprotein 14 mg/dL (5-40)
[2024-11-08 15:01] LABS: Vitamin D,25 Hydroxy 60.5 ng/mL
== END | disposition home or self-care (01) ==
PROVIDERS: PCP Family Medicine Geriatric Medicine; Visit Provider Family Medicine Geriatric Medicine
DX: I10 Essential (primary) hypertension (principal); E78.5 Hyperlipidemia, unspecified; E55.9 Vitamin D deficiency, unspecified; R68.83 Chills (without fever)

== ENCOUNTER → 2024-11-24 | Outpatient (CLI) | payer MEDICARE, MEDICAID, SELFPAY ==
--- NOTE | 2024-11-24 15:33 | RAD_ITS ---
PROCEDURE: HIP, UNI W/ PELVIS 2-3 VIEWS REASON FOR EXAM: Unknown. TECHNIQUE: 3 view of the right hip COMPARISON: None. FINDINGS: No fracture. No suspicious bone lesion. Normal alignment. Soft tissues are unremarkable. RAD/HIP, UNI W/ Pelvis 2-3 Views IMPRESSION: NEGATIVE SINGLE VIEW HIP Reading Location: [id number]
== END | disposition home or self-care (01) ==
LOC: RAD 15:31
PROVIDERS: PCP Family Medicine Geriatric Medicine; Referring Provider Anesthesiology; Visit Provider Anesthesiology
DX: M25.551 Pain in right hip (principal)
CPT/HCPCS: 73502

== ENCOUNTER 2024-12-20 09:42 | Day surgery (SDC) | payer MEDICARE, MEDICAID, SELFPAY ==
--- NOTE | 2024-12-15 15:01 | PAT.ANE_ITS ---
Pre-Assessment Diagnosis/Proposed Procedure Planned Operative Procedure(s): EGD Anesthesia History Anesthesia History - group home paraprofessional: Anesthesia History - group home paraprofessional Hx Hospitalization Yes 12/15/24 14:32 Any Problems With Anesthesia Yes: NAUSEA 12/15/24 14:32 Cholinesterase deficiency No 12/15/24 14:32 You/Your Family Experience No 12/15/24 14:32 fever (hyperthermia) with Relationship Recent Exposure to Contagious No 12/27/21 06:29 Disease Does patient have nerve No 12/15/24 14:32 stimulator Patient instructed to have device shut off --Does patient have Pacemaker or ICD? When Was Last Pacemaker Check QUESTION #4 FULL TEXT: You/Your Family Experience fever (hyperthermia) with Anesthesia Last Oral Intake Last Oral intake: Last Oral Intake NPO since Meds taken in AM with sips of water? Meds patient instructed to take am of surgery PONV PONV - group home paraprofessional: PONV - group home paraprofessional Female Yes 12/15/24 14:32 HX of Motion Sickness No 12/15/24 14:32 HX of N/V After Surgery No 12/15/24 14:32 Non-Smoker Yes 12/15/24 14:32 Duration of Surgery greater No 12/15/24 14:32 than 60 minutes Number of Risk Factors 2 12/15/24 14:32 PONV Score Moderate Risk 12/15/24 14:32 Height & Weight Height & Weight: Anesthesia: Height & Weight Height 5 ft 01/08/24 13:24 Respiratory Assessment Respiratory Assessment - group home paraprofessional: Respiratory Tract Infection Hx - group home paraprofessional Hx Respiratory Tract Infection Yes 12/15/24 14:32 STOP Sleep Apnea STOP Sleep Apnea - group home paraprofessional: STOP Sleep Apnea - group home paraprofessional Hx Hypertension No 12/15/24 14:32 Hx Sleep Apnea Yes 12/15/24 14:32 CPAP No: doesn't use CPAP anymore 12/15/24 14:32 BIPAP No 12/15/24 14:32 Do you snore loudly (louder than talking or can be heard Do you often feel tired/ fatigued/ sleepy during daytime? Has anyone observed you stop breathing during sleep? STOP Results Positive 12/15/24 14:32 QUESTION #5 FULL TEXT : Do you snore loudly (louder than talking or can be heard through closed doors)? 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 Specify any problems Hx of Preganancy in last 3 No 12/15/24 14:32 Months Nurse Filling Out Transfusion VCHRISTIN 12/15/24 14:32 & Questions: Date: 12/15/24 12/15/24 14:32 Time: 14:35 12/15/24 14:32 Patient unable to answer at this time (ie. confused, unrespo /Reproduction History /Reproductive History - group home paraprofessional: /Reproductive Hx- group home paraprofessional Hx Now Gestational Age (in weeks): EDC: Hx Hx Para Hx Section SAB PFSH Medical History (Updated 12/15/24 @ 14:32 by Fallon Granados) Post-menopausal Arthritis Anemia Excessive bleeding Injury of head and neck History of ulceration Gastric reflux Hoarseness History of echocardiogram Dysphagia Anastomotic ulcer Rectal pain Abdominal pain Wears glasses Open wound Easy bruising History of IBS Former smoker History of irregular heartbeat Frequent falls Wound, open, scalp with complication Constipation Failure to thrive in adult Vitamin B12 deficiency Vitamin D deficiency Hyperlipidemia Atrial fibrillation with rapid ventricular response Depression Gastroparesis Obstructive sleep apnea COPD (chronic obstructive pulmonary disease) Myocardial infarction CAD (coronary artery disease) Congestive heart failure Peristomal hernia Perforated diverticulum of large intestine Hiatal hernia Insomnia Mixed anxiety depressive disorder Allergic rhinitis due to allergen GERD (gastroesophageal reflux disease) Asthma Home Medications ?Medication ?Instructions ?Recorded ?Last Taken ?Type acetaminophen 650 mg 650 mg PO Q6H PRN PRN Pain 1 Unknown History tablet,extended release oxybutynin chloride 5 mg tablet 5 mg PO DAILY overacti ve bladder 08/24/21 Unknown History albuterol sulfate 90 mcg/actuation 2 puff inhalation Q 2H PRN PRN 02/01/22 Un known History aerosol inhaler Shortness Of Breath ondansetron 4 mg disintegrating 4 mg PO Q8H PRN nausea and 04/19/22 Unknown Rx tablet vomiting #14 tabs pantoprazole 20 mg tablet,delayed 20 mg PO BID 8 weeks #112 tabs 07/17/22 Unknown Rx release biotin 1 mg capsule 1 mg PO QDAY 09/15/24 Unknow n History dicyclomine 20 mg tablet 20 mg PO BID PRN abdominal 1 11/15/23 Unknown Rx discomfort #30 tabs baclofen 5 mg tablet 5 mg PO Q8H PRN pain 5 Unknown History cholecalciferol (vitamin D3) 25 25 mcg PO DAILY Unknown History mcg (1,000 unit) capsule (Vitamin D3) sucralfate 100 mg/mL oral 10 ml PO TID PRN stomach ups et 12/15/24 Unknown History suspension Allergy/AdvReac Type Severity Reaction Status Date / Time hydromorphone (From Dilaudid) Allergy Unknown Unknown Verified 12/15/24 14:17 levofloxacin (From Levaquin) Allergy Hives Verified 12/15/24 14:17 Penicillins Allergy Hives Verified 12/15/24 14:17 Family History Mother No problems noted. Surgical History (Updated 12/15/24 @ 14:32 by Fallon Granados) Hx of parathyroidectomy Hx laparoscopic cholecystectomy History of Rayray-en-Y gastric bypass History of colostomy History of esophagogastroduodenoscopy (EGD) History of cardiac catheterization History of tonsillectomy History of bilateral knee replacement S/P colostomy S/P cataract surgery Social History Smoking Status: Former smoker second hand exposure: No alcohol intake: never substance use type: does not use caffeine: Yes what type of physical activity do you participate in: none frequency: does not exercise seatbelt use: always Audit: Pertinent Findings Pertinent Findings EKG Perinent findings: February 04, 2022. Atrial fibrillation with PVCs. ST and T wave abnormality. Consider inferior ischemia or digitalis effect. (See ECHO below) Echo (EF%) pertinent findings: February 04, 2022. Ejection fraction 55%. PA systolic pressure is 44 mmHg. No aortic stenosis noted. Recommendation Anesthesia Recommendation Anesthesia recommendation: OPTIMIZED for anesthesia
[2024-12-20] VITALS (9 sets, daily range): BP systolic 95–172; BP diastolic 60–84; PULSE 57–64; RESP 16–18; TEMP 36.2–37.2; O2SAT 94–100; BMI 21.1
--- NOTE | 2024-12-20 | ESO_PTH ---
PATIENT: ANDREY DIEHL LOC: EN U#:[id number] AGE/SX: 79/F ROOM: RE12/20/[address]: Dr. Blu Casanova DO : 1945 BED: DIS: 12/20/2024 SPEC #: [id number] RECD: 12/20/24 12:41 STATUS: NINA REEmily #: [id number] ADOLFO: 12/20/24 00:[address]: Blu Casanova DEPT: SURGICAL PATHOLOGY RECD BY: Clemente Toth ENTERED: 12/20/24 12:41 SP TYPE: MYRANDA MARQUIS DR: Dr. Garret Coy MD Tissues: Esophagus, NOS Procedures: Special Stain Group I Surgery Specimen Level IV Alcian Blue/PAS (control) HEADER OPERATION: EGD PRE-OP DIAGNOSIS: Dysphagia TISSUE SUBMITTED: Distal esophagus biopsy MICROSCOPIC DIAGNOSIS Distal esophagus, biopsy: Fragments of gastroesophageal mucosa with acute and chronic inflammation and changes consistent with gastroesophageal reflux disease. Intestinal metaplasia (goblet cell metaplasia) not identified. See comment. 12/21/2024 COMMENT Alcian blue/PAS stain with matched control is used in the evaluation of the specimen. The specimen predominantly consists of squamous mucosa. MICROSCOPIC DESCRIPTION Slides are reviewed. GROSS DESCRIPTION Received in fixative is one container labeled with the patient's name and designated Distal esophagus biopsy. The specimen consists of two irregular fragments of light buckner soft tissue that in aggregate measure 0.9 x 0.5 x 0.1 cm. The specimen is totally submitted in one cassette. 12/20/2024 TC:3 CPT:86681,24298
--- NOTE | 2024-12-20 10:20 | PCM.PRE.AN2 ---
ASA Classification* ASA Classification ASA Classification: 3 Assessment & Plan Anesthesia* Anesthesia Assessment Anesthesia Assessment: Discussed sedation and/or anesthesia options, risks, benefits, and alternatives with patient/parents/legal guardian/POA. Questions invited. The patient/parents/legal guardian/POA seems to understand and agrees to proceed with anesthesia plan. Reviewed the physical assessment, medical history, allergy history and patient home medications list prior to surgery/procedure/anesthetic and documented any changes. Performed airway and anesthesia risk assessments. Anesthesia Type Anesthesia Type: MAC History Source History Obtained from:: Patient and Chart Anesthesia Focused Assessment* Temperature: 97.9 F Pulse Rate: 62 Blood Pressure: 172/84 Respiratory Rate: 16 Pulse Ox: 100 Oxygen Delivery Method: Room Air Airway Assessment Mouth opens: >3 cm Mallampati Score: I Teeth Condition: Intact Neck Range of motion (ROM): Full ROM Focused Labs Anesthesia Preop lab: CBC WBC 7.3 K/mm3 (4.4-11.0) 11/08/24 13:38 11/08/24 RBC 5.00 M/mm3 (4.2-5.4) 11/08/24 13:38 11/08/24 Hgb 13.5 g/dL (12.0-15.0) 11/08/24 13:38 11/08/24 Hct 41.8 % (37-47) 11/08/24 13:38 11/08/24 Plt Count 328 K/mm3 (150-450) 11/08/24 13:38 11/08/24 CHEMISTRY Potassium 3.8 mmol/L (3.5-5.1) 11/08/24 13:38 11/08/24 Sodium 141 mmol/L (136-145) 11/08/24 13:38 11/08/24 Magnesium 1.8 mg/dL (1.6-2.6) 02/09/22 04:51 02/09/22 Phosphorus 1.9 mg/dL (2.5-4.9) L 02/09/22 04:51 02/09/22 BUN 13 mg/dL (7-18) 11/08/24 13:38 11/08/24 Creatinine 0.83 mg/dL (0.55-1.02) 11/08/24 13:38 11/08/24 Glucose 93 mg/dL (74-106) 11/08/24 13:38 11/08/24 POC Glucose 183 mg/dL (74-106) H 02/09/22 18:21 02/09/22 TSH 2.160 uIU/mL (0.358-3.740) 11/08/24 13:38 11/08/24 COAG PT 13.3 SECONDS (11.7-14.9) 02/01/22 08:14 02/01/22 Pre-Assessment Diagnosis/Proposed Procedure Planned Operative Procedure(s): EGD Anesthesia History 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 When Was Last Pacemaker Check QUESTION #4 FULL TEXT: You/Your Family Experience fever (hyperthermia) with Anesthesia Last Oral Intake Last Oral intake: Last Oral Intake NPO since 00:00 12/20/24 10:13 Meds taken in AM with sips of No 12/20/24 10:13 water? Meds patient instructed to take am of surgery PONV PONV - information systems auditor: PONV - information systems auditor Female Yes 12/15/24 14:32 HX of Motion Sickness No 12/15/24 14:32 HX of N/V After Surgery No 12/15/24 14:32 Non-Smoker Yes 12/15/24 14:32 Duration of Surgery greater No 12/15/24 14:32 than 60 minutes Number of Risk Factors 2 12/15/24 14:32 PONV Score Moderate Risk 12/15/24 14:32 Height & Weight Height & Weight: Anesthesia: Height & Weight Height 5 ft 12/20/24 10:13 Weight: 49 kg 12/20/24 10:13 Body Mass Index (BMI) 21.1 12/20/24 10:13 Respiratory Assessment Respiratory Assessment - information systems auditor: Respiratory Tract Infection Hx - information systems auditor Hx Respiratory Tract Infection Yes 12/15/24 14:32 STOP Sleep Apnea STOP Sleep Apnea - information systems auditor: STOP Sleep Apnea - information systems auditor Hx Hypertension No 12/15/24 14:32 Hx Sleep Apnea Yes 12/15/24 14:32 CPAP No: doesn't use CPAP anymore 12/15/24 14:32 BIPAP No 12/15/24 14:32 Do you snore loudly (louder than talking or can be heard Do you often feel tired/ fatigued/ sleepy during daytime? Has anyone observed you stop breathing during sleep? STOP Results Positive 12/15/24 14:32 QUESTION #5 FULL TEXT : Do you snore loudly (louder than talking or can be heard through closed doors)? Tobacco Use History Tobacco Use History - information systems auditor: Tobacco Use History - information systems auditor Tobacco Use Non-smoker 03/27/21 10:39 Smoking Status Former smoker 12/15/24 14:32 Hx Tobacco Use No 12/15/24 14:32 Years Smoking Packs Smoked per Day Smoking Cessation Date was No - quit smoking greater 12/15/24 14:32 within the last 15 years than 15 years ago Hx Smoking Cessation Date 01/30/1966 12/15/24 14:32 Hx Smoking Cessation No 12/15/24 14:32 Counseling Hematologic Medial History Hematologic Hx - information systems auditor: Hematologic Medical Hx - collar trimmer Hx of Blood Transfusion No 12/15/24 14:32 Hx of Transfusion in last 3 No 12/15/24 14:32 Months Date of Last Transfusion (if within last 3 months) Ever experience any problems No 12/15/24 14:32 with transfusion(s)? Specify any problems Hx of Preganancy in last 3 No 12/15/24 14:32 Months Nurse Filling Out Transfusion VCHRISTIN 12/15/24 14:32 & Questions: Date: 12/15/24 12/15/24 14:32 Time: 14:35 12/15/24 14:32 Patient unable to answer at this time (ie. confused, unrespo /Reproduction History /Reproductive History - information systems auditor: /Reproductive Hx- information systems auditor Hx Now Gestational Age (in weeks): EDC: Hx Hx Para Hx Section SAB PFSH Medical History (Updated 12/15/24 @ 14:32 by Fallon Granados) Post-menopausal Arthritis Anemia Excessive bleeding Injury of head and neck History of ulceration Gastric reflux Hoarseness History of echocardiogram Dysphagia Anastomotic ulcer Rectal pain Abdominal pain Wears glasses Open wound Easy bruising History of IBS Former smoker History of irregular heartbeat Frequent falls Wound, open, scalp with complication Constipation Failure to thrive in adult Vitamin B12 deficiency Vitamin D deficiency Hyperlipidemia Atrial fibrillation with rapid ventricular response Depression Gastroparesis Obstructive sleep apnea COPD (chronic obstructive pulmonary disease) Myocardial infarction CAD (coronary artery disease) Congestive heart failure Peristomal hernia Perforated diverticulum of large intestine Hiatal hernia Insomnia Mixed anxiety depressive disorder Allergic rhinitis due to allergen GERD (gastroesophageal reflux disease) Asthma Home Medications ?Medication ?Instructions ?Recorded ?Last Taken ?Type acetaminophen 650 mg 650 mg PO Q6H PRN PRN Pain 08/02/16 Unknown History tablet,extended release oxybutynin chloride 5 mg tablet 5 mg PO DAILY overactive bladder 08/24/21 Unknown History albuterol sulfate 90 mcg/actuation 2 puff inhalation Q2H PRN PRN 02/01/22 Unknown History aerosol inhaler Shortness Of Breath ondansetron 4 mg disintegrating 4 mg PO Q8H PRN nausea and 04/19/22 Unknown Rx tablet vomiting #14 tabs pantoprazole 20 mg tablet,delayed 20 mg PO BID 8 weeks #112 tabs 07/17/22 Unknown Rx release biotin 1 mg capsule 1 mg PO QDAY 09/15/24 Unknown History dicyclomine 20 mg tablet 20 mg PO BID PRN abdominal 09/15/24 Unknown Rx discomfort #30 tabs baclofen 5 mg tablet 5 mg PO Q8H PRN pain 12/15/24 Unknown History cholecalciferol (vitamin D3) 25 25 mcg PO DAILY 12/15/24 Unknown History mcg (1,000 unit) capsule (Vitamin D3) sucralfate 100 mg/mL oral 10 ml PO TID PRN stomach upset 12/15/24 Unknown History suspension Allergy/AdvReac Type Severity Reaction Status Date / Time hydromorphone (From Dilaudid) Allergy Unknown Unknown Verified 12/15/24 14:17 levofloxacin (From Levaquin) Allergy Hives Verified 12/15/24 14:17 Penicillins Allergy Hives Verified 12/15/24 14:17 Family History Mother No problems noted. Surgical History (Updated 12/15/24 @ 14:32 by Fallon Granados) Hx of parathyroidectomy Hx laparoscopic cholecystectomy History of Rayray-en-Y gastric bypass History of colostomy History of esophagogastroduodenoscopy (EGD) History of cardiac catheterization History of tonsillectomy History of bilateral knee replacement S/P colostomy S/P cataract surgery Social History Smoking Status: Former smoker second hand exposure: No alcohol intake: never substance use type: does not use caffeine: Yes what type of physical activity do you participate in: none frequency: does not exercise seatbelt use: always Review of Systems (Anesthesia) ROS Narrative System reviewed and no additional complaints, except as documented. Physical Exam Const alert and oriented x3 HEENT dentition normal Eyes Eyes Narrative: glasses on Neck full ROM Resp normal respiratory effort Extremity full ROM Neuro oriented x3 and moves all extremities
--- NOTE | 2024-12-20 10:50 | PCM.HP.STD ---
HPI - General General Date of Admission: 12/20/24 Date of Service: 12/20/24 Chief Complaint: dysphagia HPI Narrative ANDREY DIEHL, is a 79 F who presents for the evaluation of esophageal dysphagia. [facility] established 08.14.21 for abdominal pain s/p rayray en y gastric bypass. Hx of anastomotic ulcers EGD 07.24.22; Abnormal esophageal motility, suspicious for aperistalsis. - Gastric bypass with a normal-sized pouch and intact staple line. 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 - Hemorrhagic gastropathy. - No specimens collected. OV 09.15.24; pt has not been seen in the office here since 2021. She is presenting today for issues with swallowing. She feels food getting stuck in her esophagus. This is happening a few times per week. Sometimes it will pass but other times she will have to regurgitate it. She does have some heartburn and is on pantoprazole daily for this. [facility] Medical History Post-menopausal Arthritis Anemia Excessive bleeding Injury of head and neck History of ulceration Gastric reflux Hoarseness History of echocardiogram Dysphagia Anastomotic ulcer Rectal pain Abdominal pain Wears glasses Open wound Easy bruising History of IBS Former smoker History of irregular heartbeat Frequent falls Wound, open, scalp with complication Constipation Failure to thrive in adult Vitamin B12 deficiency Vitamin D deficiency Hyperlipidemia Atrial fibrillation with rapid ventricular response Depression Gastroparesis Obstructive sleep apnea COPD (chronic obstructive pulmonary disease) Myocardial infarction CAD (coronary artery disease) Congestive heart failure Peristomal hernia Perforated diverticulum of large intestine Hiatal hernia Insomnia Mixed anxiety depressive disorder Allergic rhinitis due to allergen GERD (gastroesophageal reflux disease) Asthma Home Medications ?Medication ?Instructions ?Recorded ?Last Taken ?Type acetaminophen 650 mg 650 mg PO Q6H PRN PRN Pain 08/02/16 Unknown History tablet,extended release oxybutynin chloride 5 mg tablet 5 mg PO DAILY overactive bladder 08/24/21 Unknown History albuterol sulfate 90 mcg/actuation 2 puff inhalation Q2H PRN PRN 02/01/22 Unknown History aerosol inhaler Shortness Of Breath ondansetron 4 mg disintegrating 4 mg PO Q8H PRN nausea and 04/19/22 Unknown Rx tablet vomiting #14 tabs pantoprazole 20 mg tablet,delayed 20 mg PO BID 8 weeks #112 tabs 07/17/22 Unknown Rx release biotin 1 mg capsule 1 mg PO QDAY 09/15/24 Unknown History dicyclomine 20 mg tablet 20 mg PO BID PRN abdominal 09/15/24 Unknown Rx discomfort #30 tabs baclofen 5 mg tablet 5 mg PO Q8H PRN pain 12/15/24 Unknown History cholecalciferol (vitamin D3) 25 25 mcg PO DAILY 12/15/24 Unknown History mcg (1,000 unit) capsule (Vitamin D3) sucralfate 100 mg/mL oral 10 ml PO TID PRN stomach upset 12/15/24 Unknown History suspension Allergy/AdvReac Type Severity Reaction Status Date / Time hydromorphone (From Dilaudid) Allergy Unknown Unknown Verified 12/15/24 14:17 levofloxacin (From Levaquin) Allergy Hives Verified 12/15/24 14:17 Penicillins Allergy Hives Verified 12/15/24 14:17 Family History Mother No problems noted. Surgical History Hx of parathyroidectomy Hx laparoscopic cholecystectomy History of Rayray-en-Y gastric bypass History of colostomy History of esophagogastroduodenoscopy (EGD) History of cardiac catheterization History of tonsillectomy History of bilateral knee replacement S/P colostomy S/P cataract surgery Social History Smoking Status: Former smoker second hand exposure: No alcohol intake: never substance use type: does not use caffeine: Yes what type of physical activity do you participate in: none frequency: does not exercise seatbelt use: always ROS Constitutional Constitutional: Denies fatigue, fever(s), poor appetite, weight gain or weight loss Gastrointestinal Gastrointestinal: Denies belching, bloating, change in bowel habits, change in stool character, chewing difficulty, coffee ground emesis, constipation, cramping, diarrhea, dyspepsia, dysphagia, early satiety, excessive flatus, fecal incontinence, heartburn, hematemesis, hematochezia, hemorrhoids, loose stools, melena, nausea, odynophagia, rectal bleeding, tenesmus, vomiting or weight changes Vital Signs Vital Signs Vital Signs: 12/20/24 10:12 12/20/24 10:13 12/20/24 10:26 Temperature 97.9 F 97.9 F Temperature Source Temporal Pulse Rate 62 62 Respiratory Rate 16 16 Respiratory Pattern Normal Blood Pressure 172/84 H 172/84 H Blood Pressure Mean 113 Blood Pressure Source Monitor Blood Pressure Position Sitting Blood Pressure Location Left Arm Pulse Ox 100 100 Oxygen Delivery Method Room Air Room Air Weight Weight: 108 lb 0.424 oz Body Mass Index (BMI) 21.1 Physical Exam Const alert, oriented x3, no apparent distress and healthy appearing General Appearance: cooperative GI normal to inspection, nondistended, normoactive bowel sounds, soft to palpation, non-tender and non-distended Percussion: normal to percussion Rectal Exam: deferred Assessment & Plan Assessment/Plan (1) Dysphagia: PLAN: Assessment and Plan Assessment and Plan (1) Dysphagia: Status: Acute Plan: This is a 79 yo female pt here today for issues with swallowing. This has been going on for some time now ever since her gastric bypass surgery. She will need to undergo EGD to assess for stricture, GERD or dysmotility disorder. She is agreeable to this. She will continue PPI therapy. -EGD -Continue PPI Medications: Refilled dicyclomine 20 mg PO BID PRN 30 tabs 0RF abdominal discomfort
--- NOTE | 2024-12-20 11:26 | OP.EGD_ITS ---
Patient Name: Breanne Sarmiento Procedure Date: 12/20/2024 11:04 AM Date of : 1945 Age: 79 Procedure: Upper GI endoscopy Indications: Dysphagia Providers: Blu Casanova DO Referring MD: Garret Coy MD Medicines: Monitored Anesthesia Care Patient Profile: This is an 79 year old female. Refer to note in patient chart for documentation of history and physical. Patient has symptoms of chronic chest pain, dysphagia with both liquids and solids and acute vomiting. Her most recent EGD for dilation. She is status post laparoscopic gastric bypass. Complications: No immediate complications. Procedure: Pre-Anesthesia Assessment: - Prior to the procedure, a History and Physical was performed, and patient medications and allergies were reviewed. The patient is competent. The risks and benefits of the procedure and the sedation options and risks were discussed with the patient. All questions were answered and informed consent was obtained. Patient identification and proposed procedure were verified by the physician in the pre-procedure area. Mental Status Examination: alert and oriented. Airway Examination: normal oropharyngeal airway and neck mobility. Respiratory Examination: clear to auscultation. CV Examination: normal. Prophylactic Antibiotics: The patient does not require prophylactic antibiotics. Prior Anticoagulants: The patient has taken no anticoagulant or antiplatelet agents except for NSAID medication. ASA Grade Assessment: II - A patient with mild systemic disease. After reviewing the risks and benefits, the patient was deemed in satisfactory condition to undergo the procedure. The anesthesia plan was to use monitored anesthesia care (MAC). Immediately prior to administration of medications, the patient was re-assessed for adequacy to receive sedatives. The heart rate, respiratory rate, oxygen saturations, blood pressure, adequacy of pulmonary ventilation, and response to care were monitored throughout the procedure. The physical status of the patient was re-assessed after the procedure. After obtaining informed consent, the endoscope was passed under direct vision. Throughout the procedure, the patient's blood pressure, pulse, and oxygen saturations were monitored continuously. The Endoscope was introduced through the mouth, and advanced to the second part of duodenum. The upper GI endoscopy was accomplished without difficulty. The patient tolerated the procedure well. Scope In: 11:13:03 AM Scope Out: 11:19:53 AM Total Procedure Duration Time 0 hours 6 minutes 50 seconds Findings: The Z-line was irregular and was found 40 cm from the incisors. Biopsies were taken with a cold forceps for histology. Verification of patient identification for the specimen was done. Estimated blood loss was minimal. Abnormal motility was noted in the esophagus. The cricopharyngeus was abnormal. There are extra peristaltic waves in the esophageal body. The distal esophagus/lower esophageal sphincter is spastic, but gives up passage to the endoscope. Tertiary peristaltic waves are noted. Evidence of a Rayray-en-Y gastrojejunostomy was found. The gastrojejunal anastomosis was characterized by moderate stenosis. This was traversed. The ocnjj-so-zeuvrdp limb was characterized by healthy appearing mucosa. The svsbqvbs-zl-pkdiopo limb was not examined as it could not be found. The excluded stomach was not examined as it could not be found. The examined jejunum was normal. Impression: - Z-line irregular, 40 cm from the incisors. Biopsied. - Abnormal esophageal motility, suspicious for esophageal spasm. - Rayray-en-Y gastrojejunostomy with gastrojejunal anastomosis characterized by moderate stenosis. - Normal examined jejunum. Recommendation: - Discharge patient to home. Consider stent transversing the gastrojejunal stenosis. - Continue present medications. Procedure Code(s): --- Professional --- 64928, Esophagogastroduodenoscopy, flexible, transoral; with biopsy, single or multiple CPT copyright 2021 [employer]. All rights reserved. The codes documented in this report are preliminary and upon 1st grade teacher review may be revised to meet current compliance requirements. Blu Casanova DO 12/20/2024 11:25:25 AM This report has been signed electronically. Number of Addenda: 0 Note Initiated On: 12/20/2024 11:04 AM
--- NOTE | 2024-12-20 11:26 | OP.CCLET_ITS ---
12/20/2024 Garret Coy MD [address] [place] [address] Re : Upper GI endoscopy procedure for Breanne Sarmiento Dear Dr. Coy This procedure was performed on Friday, December 20, 2024. My impressions and recommendations are as follows: Impressions : - Z-line irregular, 40 cm from the incisors. Biopsied. - Abnormal esophageal motility, suspicious for esophageal spasm. - Rayray-en-Y gastrojejunostomy with gastrojejunal anastomosis characterized by moderate stenosis. - Normal examined jejunum. Recommendations : - Discharge patient to home. Consider stent transversing the gastrojejunal stenosis. - Continue present medications. My findings are described in the full procedure note, which is enclosed. If I can be of further assistance, please feel free to contact me at . Sincerely, Blu Casanova, 12/20/2024 11:25:25 AM This report has been signed electronically.
--- NOTE | 2024-12-20 11:28 | PCM.POST.ANE ---
Anesthesia: Postop Eval I Current Vital Signs Temperature: 97.2 F Pulse Rate: 64 Blood Pressure: 101/62 Respiratory Rate: 16 Pulse Ox: 95 Oxygen Delivery Method: Room Air Assessment Airway patent: Yes Spontaneous unlabored respirations: Yes Mental status: Asleep nausea: No Vomiting: No Anesthesia Complication: No Fluid Hydration Crystalloid volume administer (ml): 30 Total IV fluid infused: 30 Progress Note Anesthesia document: Postop Eval 1 completed: Yes
--- NOTE | 2024-12-20 14:55 | PCM.POSTANE2 ---
Anesthesia Postop Eval I Sum Postop Eval Completion status Anesthesia document: Postop Eval 1 completed: Yes Anesthesia Postop Eval I Summary Anesthesia Postop Eval I Summary: Anesthesia Postop Eval I: Assessment Summary Airway patent Yes 12/20/24 11:29 [email or web address] Spontaneous unlabored Yes 12/20/24 11:29 [email or web address] respirations Mental status Asleep 12/20/24 11:29 [email or web address] nausea No 12/20/24 11:29 [email or web address] Vomiting No 12/20/24 11:29 [email or web address] Anesthesia Postop Eval I: Fluid Summary Crystalloid volume administer 30 12/20/24 11:29 [email or web address] (ml) Colloids volume administered ( ml) Blood Product volume administered (ml) Total IV fluid infused 30 12/20/24 11:29 [email or web address] Anesthesia Postop Eval I: Summary Notes Anesthesia Complication No 12/20/24 11:29 [email or web address] Anesthesia Complication Comment: Post-operative progress note Anesthesia: Postop Eval II Evaluation Mental status: Awake and Calm Pain Level: 2 nausea: No Vomiting: No Complications Anesthesia Complication: No
== END 2024-12-20 12:36 | disposition home or self-care (01) ==
LOC: EN 09:43 → AC 09:45
PROVIDERS: PCP Family Medicine Geriatric Medicine; Referring Provider Family Medicine Geriatric Medicine; Visit Provider Internal Medicine Gastroenterology
PROC: 0DJ08ZZ Inspection of Upper Intestinal Tract, Via Natural or Artificial Opening Endoscopic (ICD-10-PCS; CPT 43235; principal; 2024-12-20 10:40)
DX: K21.00 Gastro-esophageal reflux disease with esophagitis, without bleeding (principal); I50.9 Heart failure, unspecified; J44.9 Chronic obstructive pulmonary disease, unspecified; Z87.891 Personal history of nicotine dependence; E78.5 Hyperlipidemia, unspecified; I25.10 Atherosclerotic heart disease of native coronary artery without angina pectoris; Z98.84 Bariatric surgery status; Z98.0 Intestinal bypass and anastomosis status
CPT/HCPCS: 43239; 88305; 88312; A4216; J2405

== ENCOUNTER → 2025-02-10 | Outpatient (CLI) | payer MEDICARE, SELFPAY ==
--- NOTE | 2025-02-10 16:17 | RAD_ITS ---
PROCEDURE: Cervical spine radiographs, four views 02/10/2025 REASON FOR EXAM: Nontraumatic neck pain TECHNIQUE: Four views of the cervical spine were obtained. COMPARISON: None available FINDINGS: Four views of the cervical spine were obtained. The bones are osteopenic. On the lateral projection, the cervical spine is imaged from the skull base through the C7-T1 interspace. No evidence of acute fracture or focal subluxation in the cervical spine. Moderate multilevel degenerative disc and facet disease in the cervical spine. Prevertebral soft tissues are within normal limits. The visualized odontoid process is grossly intact, although detail is limited. There appears to be some age-indeterminate compression deformities of the upper thoracic spine, although detail is significantly limited on this study. RAD/Cerv Spine 2 or 3 Views IMPRESSION: Osteopenia. No acute bony abnormality of the cervical spine. Moderate multilevel degenerative disc and facet disease in the cervical spine. There appear to be some age-indeterminate compression deformities of the upper thoracic spine, although detail is limited on this examination. Follow-up MRI of the cervical/thoracic spine may be considered, if there are persistent symptoms. Reading [facility]
== END | disposition home or self-care (01) ==
LOC: RAD 16:08
PROVIDERS: PCP Family Medicine Geriatric Medicine; Referring Provider Family Medicine Geriatric Medicine; Visit Provider Family Medicine Geriatric Medicine
DX: M50.90 Cervical disc disorder, unspecified, unspecified cervical region (principal)
CPT/HCPCS: 72040

== ENCOUNTER 2025-02-16 16:05 | Emergency (ER) | payer MEDICARE, MEDICAID, SELFPAY ==
[2025-02-16] VITALS (8 sets, daily range): BP systolic 129–171; BP diastolic 81–108; PULSE 65–93; RESP 15–18; TEMP 36.6–37.4; O2SAT 95–99; BMI 20.7
--- NOTE | 2025-02-16 17:02 | RAD_ITS ---
PROCEDURE: CHEST PA AND LATERAL 02/16/2025 REASON FOR EXAM: WEAKNESS TECHNIQUE: Frontal and lateral views of the chest. FINDINGS: Hardware: None Heart: The heart size is normal. Mediastinum: There are atherosclerotic calcifications of the thoracic aorta. Lungs: The lungs are clear. Bones: The bones are unremarkable. RAD/Chest PA and Lateral IMPRESSION: NO ACUTE FINDINGS. Reading Location: [id number]
--- NOTE | 2025-02-16 17:10 | EX.ED.DYSGE1 ---
HPI History of Present Illness Chief Complaint: Weakness Narrative Narrative: Chief complaint and HPI: Weakness and fatigue. 80-year-old female with past medical history of failure to thrive, atrial fibrillation with RVR not on anticoagulation, CAD, CHF, GERD, dysphagia presents for evaluation of weakness and fatigue. Onset of symptoms yesterday. Patient states yesterday morning she developed fatigue and generalized weakness. She states she has been sleeping all day. She denies any fever, chills, URI symptoms, cough, chest pain, shortness of breath, abdominal pain, nausea, vomiting, constipation, diarrhea, dysuria. Denies any sick contacts. Denies any numbness/weakness or neurological deficit. Review of systems: See HPI Medications: As listed on the chart Allergies: As listed on the chart PFSH: Per chart Vital signs: As listed on the chart. Reviewed. Physical exam: Gen: A&O x3, NAD but fatigued Head: Normocephalic, atraumatic Eyes: No sclera icterus, conjunctiva clear, PERRL, EOMI ENT: Moist mucous membranes Neck: Trachea midline, No JVD CV: RRR, no murmurs, no peripheral edema Resp: Lungs CTA BL, no w/r/c GI: Abd soft, non-distended, non-tender, no r/r/g : No CVA tenderness Musc: Moves all extremities, no deformity Skin: Warm, dry Neuro: Alert, oriented, grossly intact, sensation intact Psych: Cooperative, appropriate mood and affect [facility] Medical History (Updated 02/16/25 @ 20:[address] Chris Contreras, DO) Post-menopausal Arthritis Anemia Excessive bleeding Injury of head and neck History of ulceration Gastric reflux Hoarseness History of echocardiogram Anastomotic ulcer Rectal pain Abdominal pain Wears glasses Open wound Easy bruising History of IBS Former smoker History of irregular heartbeat Frequent falls Wound, open, scalp with complication Constipation Failure to thrive in adult Vitamin B12 deficiency Vitamin D deficiency Hyperlipidemia Atrial fibrillation with rapid ventricular response Depression Gastroparesis Obstructive sleep apnea COPD (chronic obstructive pulmonary disease) Myocardial infarction CAD (coronary artery disease) Congestive heart failure Peristomal hernia Perforated diverticulum of large intestine Hiatal hernia Insomnia Mixed anxiety depressive disorder Allergic rhinitis due to allergen GERD (gastroesophageal reflux disease) Asthma Home Medications ?Medication ?Instructions ?Recorded ?Last Taken ?Type acetaminophen 650 mg 650 mg PO Q6H PRN PRN Pain 08/02/16 Unknown History tablet,extended release oxybutynin chloride 5 mg tablet 5 mg PO DAILY overactive bladder 08/24/21 Unknown History albuterol sulfate 90 mcg/actuation 2 puff inhalation Q2H PRN PRN 02/01/22 Unknown History aerosol inhaler Shortness Of Breath ondansetron 4 mg disintegrating 4 mg PO Q8H PRN nausea and 04/19/22 Unknown Rx tablet vomiting #14 tabs pantoprazole 20 mg tablet,delayed 20 mg PO BID 8 weeks #112 tabs 07/17/22 Unknown Rx release biotin 1 mg capsule 1 mg PO QDAY 09/15/24 Unknown History dicyclomine 20 mg tablet 20 mg PO BID PRN abdominal 09/15/24 Unknown Rx discomfort #30 tabs baclofen 5 mg tablet 5 mg PO Q8H PRN pain 12/15/24 Unknown History cholecalciferol (vitamin D3) 25 25 mcg PO DAILY 12/15/24 Unknown History mcg (1,000 unit) capsule (Vitamin D3) sucralfate 100 mg/mL oral 10 ml PO TID PRN stomach upset 12/15/24 Unknown History suspension amitriptyline 10 mg tablet 10 mg PO QDAY #30 tabs 02/01/25 Unknown Rx sulfamethoxazole 800 1 tab PO BID 7 days #14 tabs 02/16/25 Unknown Rx mg-trimethoprim 160 mg tablet (Bactrim DS) Allergy/AdvReac Type Severity Reaction Status Date / Time hydromorphone (From Dilaudid) Allergy Unknown Unknown Verified 02/16/25 16:09 levofloxacin (From Levaquin) Allergy Hives Verified 02/16/25 16:09 Penicillins Allergy Hives Verified 02/16/25 16:09 Family History Mother No problems noted. Surgical History Hx of parathyroidectomy Hx laparoscopic cholecystectomy History of Rayray-en-Y gastric bypass History of colostomy History of esophagogastroduodenoscopy (EGD) History of cardiac catheterization History of tonsillectomy History of bilateral knee replacement S/P colostomy S/P cataract surgery Social History Smoking Status: Former smoker second hand exposure: No alcohol intake: never substance use type: does not use caffeine: Yes what type of physical activity do you participate in: none frequency: does not exercise seatbelt use: always EXAM Physical Exam Const Vital Signs: 02/16/25 16:05 02/16/25 16:41 02/16/25 17:03 Temperature 97.9 F 99.3 F H Temperature Source Temporal Oral Pulse Rate 93 88 Respiratory Rate 15 16 Respiratory Effort Respiratory Pattern Blood Pressure 152/87 H 163/97 H Blood Pressure Mean 108 119 Pulse Ox 95 95 Oxygen Delivery Method Room Air 02/16/25 17:03 02/16/25 18:00 02/16/25 18:32 Temperature 98.3 F Temperature Source Oral Pulse Rate 67 Respiratory Rate 17 Respiratory Effort Normal Respiratory Pattern Normal Blood Pressure 149/84 H Blood Pressure Mean 105 Pulse Ox 95 Oxygen Delivery Method Room Air 02/16/25 19:00 02/16/25 20:04 Temperature Temperature Source Pulse Rate 65 67 Respiratory Rate 18 16 Respiratory Effort Respiratory Pattern Blood Pressure 161/81 H 171/108 H Blood Pressure Mean 107 129 Pulse Ox 99 95 Oxygen Delivery Method Room Air Room Air MDM MDM MDM Narrative Medical decision making narrative: 80-year-old female with past medical history of failure to thrive, atrial fibrillation with RVR not on anticoagulation, CAD, CHF, GERD, dysphagia presents for evaluation of weakness and fatigue. Onset of symptoms yesterday. Denies any other associated symptoms. On presentation, patient is no acute distress but fatigued. Her vitals are stable other than hypertension and a temperature of 99.3 ?F. Differential diagnosis includes but is not limited to viral illness, pneumonia, electrolyte abnormality, anemia, UTI, ACS, RONY. Tylenol and NS bolus ordered. Laboratory workup ordered. EKG and chest x-ray reviewed. CBC without leukocytosis. Patient has mild hemoconcentration at 15.7. May be secondary to mild dehydration. Coagulation panel unremarkable. CMP unremarkable without RONY or significant electrolyte abnormality. Lactic acid unremarkable. Magnesium level unremarkable. Troponin 17, patient not having any chest pain. UA positive for UTI. On chart review, urine culture in April 2023 showed E. coli that was pansensitive. Will give first dose of Rocephin here in the emergency department. On reevaluation, patient is still fatigued but otherwise has no complaints. Her vitals have remained stable other than asymptomatic hypertension. She has no leukocytosis or abdominal pain to suggest pyelonephritis. She is able to ambulate in the emergency department without difficulty. Patient was updated of all of her results. Patient was offered discharge home on oral antibiotics versus admission. Patient elected for discharge home. Will place her on a 7-day course of Bactrim given her allergies and previous cultures. Follow-up with PCP. Return precautions explained. EKG: Interpreted by me/EM physician: EKG shows normal sinus rhythm with PACs. Heart rate 86. No acute ischemic changes Diagnostic: Interpreted by me/EM physician: Chest x-ray without pneumonia, effusion, cardiomegaly, pneumothorax Impression: 1. UTI 2. Generalized weakness 3. Fatigue Lab Data Labs: Laboratory Results - last 24 hr 02/16/25 02/16/25 16:56 18:24 WBC 9.7 RBC 5.61 H Hgb 15.7 H Hct 47.0 MCV 83.8 MCH 28.0 MCHC 33.4 RDW Std Deviation 43.3 RDW Coeff of Travis 14.2 Plt Count 336 MPV 9.1 Immature Gran % (Auto) 0.500 Neut % (Auto) 74.8 H Lymph % (Auto) 11.7 L [place] % (Auto) 12.0 H Eos % (Auto) 0.4 Baso % (Auto) 0.6 Absolute Neuts (auto) 7.3 Absolute Lymphs (auto) 1.14 Nucleated RBC % 0 PT 13.9 INR 1.1 APTT 28.0 Sodium 136 Potassium 3.8 Chloride 101 Carbon Dioxide 22.1 Anion Gap 13 BUN 12 Creatinine 0.87 Estim Creat Clear Calc 36.43 L Est GFR (MDRD) Non-Af 67 BUN/Creatinine Ratio 13.2 Glucose 128 H Lactic Acid 1.8 Calcium 9.0 Magnesium 1.9 Total Bilirubin 0.69 AST 21 ALT 9 Alkaline Phosphatase 88 Troponin T High Sens 17 H Total Protein 7.1 Albumin 3.5 Globulin 3.6 Albumin/Globulin Ratio 1.0 Urine Color Yellow Urine Clarity Cloudy Urine pH 6.5 Ur Specific [place] 1.010 Urine Protein TNP Urine Glucose (UA) Normal Urine Ketones 5 H Urine Occult Blood 50 H Urine Nitrite Positive H Urine Bilirubin Negative Urine Urobilinogen 1 H Ur Leukocyte Esterase 25 H Urine RBC 0-5 SEEN Urine WBC 10-25 SEEN Ur Squamous Epith Cells 0 SEEN Urine Bacteria 4+ Urine Mucus 0 SEEN U Random Total Protein 40.2 H Radiography Diagnostic Testing: Clinical Impression(s) from Imaging Studies Chest X-Ray 02/16/25 17:02 IMPRESSION: NO ACUTE FINDINGS. Reading Location: [facility] Discharge Plan Triage Chief Complaint: Weakness ED Provider: Chris Contreras Dx/Rx/DC Orders Clinical Impression: Acute UTI Instructions: Urinary Tract Infections in Women Prescriptions: New sulfamethoxazole-trimethoprim [Bactrim DS] 800-160 mg tablet 1 tab PO BID 7 Days Qty: 14 0RF No Action biotin 1 mg capsule 1 mg PO QDAY dicyclomine 20 mg tablet 20 mg PO BID PRN (Reason: abdominal discomfort) Qty: 30 0RF amitriptyline 10 mg tablet 10 mg PO QDAY Qty: 30 1RF acetaminophen 650 MG tablet extended release 650 mg PO Q6H PRN PRN (Reason: Pain) Patient Comments: pain oxybutynin chloride 5 mg tablet 5 mg PO DAILY albuterol sulfate 90 mcg/actuation HFA aerosol inhaler 2 puff INHALATION Q2H PRN PRN (Reason: Shortness Of Breath) baclofen 5 mg tablet 5 mg PO Q8H PRN (Reason: pain) cholecalciferol (vitamin D3) [Vitamin D3] 25 mcg (1,000 unit) capsule 25 mcg PO DAILY sucralfate 100 mg/mL suspension 10 ml PO TID PRN (Reason: stomach upset) ondansetron 4 mg tablet,disintegrating 4 mg PO Q8H PRN (Reason: nausea and vomiting) Qty: 14 0RF pantoprazole 20 mg tablet,delayed release (DR/EC) 20 mg PO BID 56 Days Qty: 112 1RF Primary Care Provider: Garret Coy Chi Referrals: Garret Coy Chi, MD [Primary Care Provider] - 3-5 Days Activity Restrictions/Additional Instructions: Take all of your antibiotics. Return back to the ED if symptoms change or worsen. Follow-up with primary care physician. Print Language: [place] Disposition Disposition: Home, Self Care
[2025-02-16 17:13] LABS: Absolute Lymphocyte Count 1.14 X10^3/uL (0.83-4.51); Absolute Neutrophil Count 7.3 X10^3/uL (2.0-7.7); Basophil# 0.06 X10^3/uL; Basophil% 0.6 % (0-1); Eosinophil# 0.04 X10^3/uL; Eosinophils% 0.4 % (0-5); Hemoglobin 15.7 g/dL (12.0-15.0); Lymphocyte # 1.14 X10^3/ul (0.83-4.51); Lymphocyte % 11.7 % (19-41); Mean Corp Hgb Conc 33.4 g/dL (32-36); Mean Corpuscular Volume 83.8 fL (81-99); Mean Platelet Vol. 9.1 fl (6.2-12.0); Monocyte# 1.17 X10^3/uL; NRBC Flagged by Analyzer 0 % (0-5); Neutrophil # 7.28 X10^3/uL (2.7-7.7); Neutrophil % 74.8 % (47-70); Platelet Count 336 K/mm3 (150-450); RBC Distribution Width CV 14.2 % (11.6-14.6); RBC Distribution Width SD 43.3 fl (35.1-43.9); Red Blood Count 5.61 M/mm3 (4.2-5.4); White Blood Count 9.7 K/mm3 (4.4-11.0)
[2025-02-16] MEDS: 0.9% Normal Saline (1000mL) 1,000 ML 1000 ML IV (17:22)
[2025-02-16] MEDS: Acetaminophen 325 MG Tablet 650 MG PO (17:22)
[2025-02-16 17:25] LABS: International Normalized Ratio 1.1; Prothrombin Time (Protime)PT. 13.9 SECONDS (11.7-14.9)
[2025-02-16 17:32] LABS: Lactic Acid 1.8 mmol/L (0.0-2.0)
[2025-02-16 17:33] LABS: AST(SGOT) 21 U/L (<=31); Alanine Aminotransfer ALT/SGPT 9 U/L (<=34); Albumin, Serum 3.5 g/dL (3.4-4.8); Alkaline Phosphatase 88 U/L (35-104); Anion Gap 13 (5-15); BUN 12 mg/dL (4-19); BUN/Creat Ratio 13.2 RATIO (10-20); Carbon Dioxide 22.1 mmol/L (21.0-32.0); Chloride 101 mmol/L (98-108); Creatinine, Serum 0.87 mg/dL (0.70-1.20); EST Glomerular Filtration Rate 67 (>60); Estimated Creatinine Clearance 36.43 ml/min (50-250); Globulin 3.6 g/dL (2.2-4.2); Glucose 128 mg/dL (70-99); Potassium 3.8 mmol/L (3.3-5.1); Protein, Total 7.1 g/dL (5.9-8.4); Sodium Level 136 mmol/L (133-145); Total Bilirubin 0.69 mg/dL (0.00-1.30)
[2025-02-16 17:48] LABS: Magnesium 1.9 mg/dL (1.5-2.2); Troponin T High Sensitivity 17 ng/L (<=14)
[2025-02-16 18:38] LABS: Mucous, Urine 0 SEEN /hpf (<or=2+); Squamous Epithelial Cells - UA 0 SEEN /hpf (5-10)
[2025-02-16 19:05] LABS: Protein, Urine (Random) 40.2 mg/dL (0.0-12.0)
[2025-02-16 19:11] LABS: Color, Urine Yellow (Yellow); Glucose, Dipstick Normal (Normal); Ketone-Dipstick 5 mg/dl (Negative); Leukocyte Esterase-Dipstick 25 /ul (Negative); Nitrite-Dipstick Positive (Negative); Occult Blood-Urine 50 /ul (Negative); Urine Bilirubin Dipstick Negative (Negative); Urine Clarity Cloudy (Clear); Urine Urobilinogen 1 mg/dl (Normal); Urine pH 6.5 (5.0 - 8.0)
[2025-02-16 19:35] LABS: White Blood Cells 10-25 SEEN /hpf (0-5)
[2025-02-16 19:36] LABS: Bacteria 4+ /hpf (None Seen)
[2025-02-16 19:37] LABS: Red Blood Cells-Urine 0-5 SEEN /hpf (0-5)
[2025-02-16] MEDS: Ceftriaxone 1 GM/50 ML BAG IV (20:15)
[2025-02-16 21:16] LABS: Troponin T High Sens 2 HR 13 ng/L (<=14)
--- NOTE | 2025-02-17 00:52 | ED.RN ---
See downtime charting.
== END 2025-02-16 22:19 | disposition home or self-care (01) ==
PROVIDERS: Emergency Provider Surgery; PCP Family Medicine Geriatric Medicine; Visit Provider Surgery
DX: N39.0 Urinary tract infection, site not specified (principal); I11.0 Hypertensive heart disease with heart failure; I50.9 Heart failure, unspecified; J44.9 Chronic obstructive pulmonary disease, unspecified; I48.91 Unspecified atrial fibrillation; Z87.891 Personal history of nicotine dependence; E78.5 Hyperlipidemia, unspecified; R53.1 Weakness; I25.10 Atherosclerotic heart disease of native coronary artery without angina pectoris; K21.9 Gastro-esophageal reflux disease without esophagitis
CPT/HCPCS: 71046; 80053; 81001; 83605; 83735; 84156; 84484; 85025; 85610; 85730; 87040; 87077; 87086; 87088; 87186; 87631; 93005; 99285; P9612; A4216

== ENCOUNTER → 2025-05-05 | Outpatient (CLI) | payer MEDICARE, MEDICAID, SELFPAY ==
[2025-05-05 13:46] LABS: Hematocrit 43.5 % (37-47); Hemoglobin 14.0 g/dL (12.0-15.0); Immature Granulocytes Count 0.020 X10^3/uL (0.0-0.0); Mean Corp Hgb Conc 32.2 g/dL (32-36); Mean Corpuscular Volume 83.8 fL (81-99); Mean Platelet Vol. 9.8 fl (6.2-12.0); NRBC Flagged by Analyzer 0 % (0-5); Platelet Count 294 K/mm3 (150-450); RBC Distribution Width CV 14.4 % (11.6-14.6); RBC Distribution Width SD 43.4 fl (35.1-43.9); Red Blood Count 5.19 M/mm3 (4.2-5.4); White Blood Count 9.4 K/mm3 (4.4-11.0)
[2025-05-05 15:27] LABS: AST(SGOT) 26 U/L (<=31); Alanine Aminotransfer ALT/SGPT 13 U/L (<=34); Albumin, Serum 4.0 g/dL (3.4-4.8); Alkaline Phosphatase 92 U/L (35-104); Anion Gap 12 (5-15); BUN 15 mg/dL (4-19); BUN/Creat Ratio 17.7 RATIO (10-20); Calcium,Total 10.4 mg/dL (7.6-11.0); Carbon Dioxide 22.4 mmol/L (21.0-32.0); Chloride 105 mmol/L (98-108); Cholesterol 147 mg/dL (<=200); Globulin 3.4 g/dL (2.2-4.2); Glucose 95 mg/dL (70-99); Potassium 3.7 mmol/L (3.3-5.1); Triglycerides 81 mg/dL
[2025-05-05 15:28] LABS: Low Density Lipoprotein Calc. 68 mg/dL; Very Low Density Lipoprotein 16 mg/dL (5-40); Vitamin D,25 Hydroxy 41.0 ng/mL (30-100); cholesterol:hdl ratio screen 2.35
== END | disposition home or self-care (01) ==
LOC: POLAB3 12:56
PROVIDERS: PCP Family Medicine Geriatric Medicine; Visit Provider Family Medicine Geriatric Medicine
DX: I10 Essential (primary) hypertension (principal); E78.5 Hyperlipidemia, unspecified; E55.9 Vitamin D deficiency, unspecified
CPT/HCPCS: 36415; 80053; 80061; 82306; 84443; 85025

== ENCOUNTER → 2025-10-12 | Outpatient (CLI) | payer OTHER, MEDICAID, SELFPAY | END | disposition home or self-care (01) | LOC: POLAB3 16:42 | PROVIDERS: PCP Family Medicine Geriatric Medicine; Visit Provider Family Medicine Geriatric Medicine | DX: R06.2 Wheezing (principal); R50.9 Fever, unspecified; J98.8 Other specified respiratory disorders; N39.0 Urinary tract infection, site not specified | CPT/HCPCS: 87077; 87086; 87088; 87186; 87631 ==